=== PATIENT | male | born 1980 | race African-American/Black ===

== ENCOUNTER 2020-05-09 12:15 | Inpatient (IN) | payer OTHER ==
[2020-05-09 12:55] LABS: Anisocytosis Slight; Basophils % (A) 0 %; Eosinophils # (A) 0.1 k/uL (0-0.7); Eosinophils % (A) 2 %; HCT 30.9 % (39.0-53.0); Hypochromasia Slight; Lymphocytes % (A) 22 %; MCH 31.6 pg (25.0-35.0); MCHC 32.4 g/dL (31.0-37.0); MCV 97.5 fL (80.0-100.0); Macrocytosis Slight; Mean Platelet Volume 8.6; Monocytes # (A) 0.5 k/uL (0-1.0); Monocytes % (A) 11 %; Neutrophils % (A) 63 %; Platelet Count 279 k/uL (150-450); RBC 3.17 m/uL (4.30-5.90); RDW 17.7 % (11.5-15.5); WBC 4.7 k/uL (3.8-10.6)
[2020-05-09 13:06] LABS: Albumin 2.4 g/dL (3.5-5.0); Magnesium 1.9 mg/dL (1.6-2.3); Potassium 3.8 mmol/L (3.5-5.1); Total Bilirubin 1.1 mg/dL (0.2-1.3); Total Protein 6.3 g/dL (6.3-8.2)
[2020-05-09 13:11] LABS: Prothrombin Time 10.7 sec (9.0-12.0)
[2020-05-09] MEDS ORDERED: ONDANSETRON 4 MG/2 ML VIAL ONE (13:11)
[2020-05-09] MEDS ORDERED: ONDANSETRON 4 MG/2 ML VIAL IVP STA (13:13)
--- NOTE | 2020-05-09 13:46 | ED ---
Extremity Problem HPI - General Chief complaint: Extremity Problem,Nontraumatic Stated complaint: weight gain/fluid retention Time Seen by Provider: 05/09/20 12:35 Source: patient, family Mode of arrival: wheelchair Limitations: no limitations - History of Present Illness Initial comments: 39-year-old male with history of CAD with stents x 2, HLD, HTN, IDDMII, kidney disease presents today for chief complaint of increased bilateral leg swelling generalized weakness- sent by pCP for worsening leg swelling and kidney function. Patient states he is weak all over he states he has had trouble with leg swelling for the past montha ns recently trailed lasix as prescribed by Dr. Galindo. Patient states his legs continue to swell and he gained 9 lbs in the past 2 days. Patient states the he saw PCP today who was concerned because patient kidney function appeared to be worsening Patient denies shortness of breath, chest pain or pressure. Denies headache, visual changes, nausea, vomiting, abdominal pain. Patient denies fever or upper respiratory symptoms. Patient states his only complaints are leg pain and genealized weakness/fatigue. patient appeears fatigued on arrival but is AAOX3. - Related Data Home Medications Medication Instructions Recorded Confirmed Acetaminophen [Tylenol 8 Hour] 650 mg PO Q6H PRN 05/09/20 05/09/20 Aspirin EC [Ecotrin Low Dose] 81 mg PO DAILY 05/09/20 05/09/20 Atorvastatin [Lipitor] 40 mg PO DAILY 05/09/20 05/09/20 Carvedilol [Coreg] 50 mg PO BID 05/09/20 05/09/20 Furosemide [Lasix] 20 mg PO BID 05/09/20 05/09/20 Insulin Glargine,Hum.rec.anlog 10 unit SQ HS 05/09/20 05/09/20 [Lantus Solostar] Isosorbide Dinitrate [Isordil] 10 mg PO TID 05/09/20 05/09/20 Nitroglycerin Sl Tabs [Nitrostat] 0.4 mg SUBLINGUAL Q5M PRN 05/09/20 05/09/20 Ondansetron HCl [Zofran] 4 mg PO Q8H PRN 05/09/20 05/09/20 Sesame Oil 4 cap PO DAILY 07/21/20 07/21/20 Sodium Bicarbonate Tab 650 mg PO BID 05/09/20 05/09/20 amLODIPine [Norvasc] 10 mg PO DAILY 05/09/20 05/09/20 hydrALAZINE HCL [Apresoline] 100 mg PO TID 05/09/20 05/09/20 Allergies Allergy/AdvReac Type Severity Reaction Status Date / Time No Known Allergies Allergy Verified 05/09/20 13:44 Review of Systems ROS Statement: Those systems with pertinent positive or pertinent negative responses have been documented in the HPI. ROS Other: All systems not noted in ROS Statement are negative. Past Medical History Past Medical History: Heart Failure, Hypertension, Myocardial Infarction ([place]), Renal Disease History of Any Multi-Drug Resistant Organisms: None Reported Past Surgical History: Heart Catheterization With Stent Past Psychological History: No Psychological Hx Reported Smoking Status: Never smoker Past Alcohol Use History: None Reported Past Drug Use History: None Reported General Exam - General Exam Comments Initial Comments: General: The patient is awake and alert, in no distress Eye: +3 mm right pupil round and reactive to light, extra-ocular movements are intact. The left eye is opaque. No nystagmus. There is normal conjunctiva bilaterally. No signs of icterus. Ears, nose, mouth and throat: There are moist mucous membranes and no oral lesions. Neck: The neck is supple, there is no tenderness or JVD. Cardiovascular: There is a regular rate and rhythm. No murmur, rub or gallop is appreciated. Respiratory: Respirations are non-labored, breath sounds are equal. No wheezes, stridor. Some mild rhonchi noted. Faint base rales. Gastrointestinal: Soft, non-distended, non-tender abdomen without masses or organomegaly noted. There is no rebound or guarding present. Musculoskeletal: Normal ROM, no tenderness. Strength 5/5. Sensation intact. Radial pulses equal bilaterally 2+. Neurological: A&O x 3. CN II-XII intact grossly, There are no obvious motor or sensory deficits. Coordination appears grossly intact. Speech is normal. Skin: Skin is warm and dry and no rashes or lesions are noted. +3 pitting edema b/l Psychiatric: Cooperative, appropriate mood & affect, normal judgment. Limitations: no limitations Course Vital Signs 05/09/20 05/09/20 05/09/20 12:21 14:18 15:00 Temperature 97.8 F Pulse Rate 84 76 78 Respiratory 16 16 15 Rate Blood Pressure 185/105 189/123 189/123 O2 Sat by Pulse 100 99 100 Oximetry 05/09/20 05/09/20 05/09/20 15:45 17:00 17:30 Temperature Pulse Rate 79 84 83 Respiratory 15 19 20 Rate Blood Pressure 201/139 211/136 217/122 O2 Sat by Pulse 99 100 99 Oximetry 05/09/20 18:30 Temperature 97.9 F Pulse Rate 83 Respiratory 16 Rate Blood Pressure 205/134 O2 Sat by Pulse 99 Oximetry Medical Decision Making - Medical Decision Making 39yo male presenting for cc of leg swelling sent by PCP, also endorses fatigue. Patient has history of chronic kidney disease, hypertension and insulin- dependent diabetes. Patient sent for worsening kidney function. Physical examination concerning for fluid overload with B/l LE swelling Patient has some minor rales, no respiratory distress. Denies chest pain, SOB, or pain with deep inspiration. BNP significantly elevated, Cr increased concerning for kidney failure cannot r/o cardiorenal syndrome. Will be admitted on lasix drink with nephrology and cardiology consultation. Dr Hickey agreeable to care plan and admission. - Lab Data Result diagrams: 05/10/20 05:41 05/11/20 06:10 Lab Results 05/09/20 05/09/20 05/09/20 Range/Units 12:35 12:35 12:35 WBC 4.7 (3.8-10.6) k/uL RBC 3.17 L (4.30-5.90) m/uL Hgb 10.0 L (13.0-17.5) gm/dL Hct 30.9 L (39.0-53.0) % MCV 97.5 (80.0-100.0) fL MCH 31.6 (25.0-35.0) pg MCHC 32.4 (31.0-37.0) g/dL RDW 17.7 H (11.5-15.5) % Plt Count 279 (150-450) k/uL Neutrophils % 63 % Lymphocytes % 22 % Monocytes % 11 % Eosinophils % 2 % Basophils % 0 % Neutrophils # 3.0 (1.3-7.7) k/uL Lymphocytes # 1.0 (1.0-4.8) k/uL Monocytes # 0.5 (0-1.0) k/uL Eosinophils # 0.1 (0-0.7) k/uL Basophils # 0.0 (0-0.2) k/uL Hypochromasia Slight Anisocytosis Slight Macrocytosis Slight PT 10.7 (9.0-12.0) sec INR 1.0 (<1.2) APTT 26.0 (22.0-30.0) sec Sodium 138 (137-145) mmol/L Potassium 3.8 (3.5-5.1) mmol/L Chloride 110 H (98-107) mmol/L Carbon Dioxide 24 (22-30) mmol/L Anion Gap 4 mmol/L BUN 34 H (9-20) mg/dL Creatinine 3.73 H (0.66-1.25) mg/dL Est GFR (CKD-EPI)AfAm 23 (>60 ml/min/1.73 sqM) Est GFR (CKD-EPI)NonAf 20 (>60 ml/min/1.73 sqM) Glucose 125 H (74-99) mg/dL Calcium 8.0 L (8.4-10.2) mg/dL Magnesium 1.9 (1.6-2.3) mg/dL Total Bilirubin 1.1 (0.2-1.3) mg/dL AST 58 (17-59) U/L ALT 75 H (4-49) U/L Alkaline Phosphatase 812 H (38-126) U/L Troponin I (0.000-0.034) ng/mL NT-Pro-B Natriuret Pep pg/mL Total Protein 6.3 (6.3-8.2) g/dL Albumin 2.4 L (3.5-5.0) g/dL Hepatitis A IgM Ab (Non-Reactive) Hep Bs Antigen (Non-Reactive) Hep B Core IgM Ab (Non-Reactive) Hep C IgG Ab (Non-Reactive) 05/09/20 05/09/20 05/09/20 Range/Units 12:35 12:35 12:35 WBC (3.8-10.6) k/uL RBC (4.30-5.90) m/uL Hgb (13.0-17.5) gm/dL Hct (39.0-53.0) % MCV (80.0-100.0) fL MCH (25.0-35.0) pg MCHC (31.0-37.0) g/dL RDW (11.5-15.5) % Plt Count (150-450) k/uL Neutrophils % % Lymphocytes % % Monocytes % % Eosinophils % % Basophils % % Neutrophils # (1.3-7.7) k/uL Lymphocytes # (1.0-4.8) k/uL Monocytes # (0-1.0) k/uL Eosinophils # (0-0.7) k/uL Basophils # (0-0.2) k/uL Hypochromasia Anisocytosis Macrocytosis PT (9.0-12.0) sec INR (<1.2) APTT (22.0-30.0) sec Sodium (137-145) mmol/L Potassium (3.5-5.1) mmol/L Chloride (98-107) mmol/L Carbon Dioxide (22-30) mmol/L Anion Gap mmol/L BUN (9-20) mg/dL Creatinine (0.66-1.25) mg/dL Est GFR (CKD-EPI)AfAm (>60 ml/min/1.73 sqM) Est GFR (CKD-EPI)NonAf (>60 ml/min/1.73 sqM) Glucose (74-99) mg/dL Calcium (8.4-10.2) mg/dL Magnesium (1.6-2.3) mg/dL Total Bilirubin (0.2-1.3) mg/dL AST (17-59) U/L ALT (4-49) U/L Alkaline Phosphatase (38-126) U/L Troponin I 0.030 (0.000-0.034) ng/mL NT-Pro-B Natriuret Pep 61102 pg/mL Total Protein (6.3-8.2) g/dL Albumin (3.5-5.0) g/dL Hepatitis A IgM Ab Non-Reactive (Non-Reactive) Hep Bs Antigen Non-Reactive (Non-Reactive) Hep B Core IgM Ab Non-Reactive (Non-Reactive) Hep C IgG Ab Non-Reactive (Non-Reactive) Disposition Clinical Impression: CHF (congestive heart failure), Abnormal albumin, Elevated alkaline phosphatase level, Kidney failure, Hypertension, Pleural effusion, Leg edema Disposition: ADMITTED IP TO THIS HOSP Condition: Serious Is patient prescribed a controlled substance at d/c from ED?: No Time of Disposition: 14:04 Decision to Admit Reason: Admit from EC Decision Date: 05/09/20 Decision Time: 14:04
--- NOTE | 2020-05-09 13:57 | XR ---
EXAMINATION TYPE: XR chest 2V DATE OF EXAM: 05/09/2020 COMPARISON: None HISTORY: 39-year-old male with chest pain TECHNIQUE: PA and lateral views FINDINGS: Heart moderately enlarged. Aorta within normal limits. Mild diffuse interstitial and vascular promine nce. Trace pleural effusions. IMPRESSION: Moderate enlargement of the cardiac/pericardiac silhouette. Correlate for pulmonary vascular congesti on. Trace pleural effusions.
[2020-05-09] MEDS ORDERED: NALOXONE 0.4 MG/ML 1 ML VIAL IV PRN (14:00)
[2020-05-09] MEDS ORDERED: FUROSEMIDE 10 MG/ML 4 ML VIAL IV STA (14:06)
[2020-05-09] MEDS ORDERED: LEVOFLOXACIN 500MG-D5W PMX 500 MG in DEXTROSE/WATER 1 100ML.BAG IVPB STA (14:12)
[2020-05-09] MEDS ORDERED: cefTRIAXone IN SWFI 1,000 MG/10 ML SYRINGE IVP STA (14:12)
[2020-05-09] MEDS: FUROSEMIDE 100 MG in SODIUM CHLORIDE 0.9% 90 ML IV SCH ×2 (14:41→22:46)
--- NOTE | 2020-05-09 15:10 | US ---
EXAMINATION TYPE: US renals and bladder DATE OF EXAM: 05/09/2020 COMPARISON: NONE CLINICAL HISTORY: cardio Renal syndrome. EXAM MEASUREMENTS: Right Kidney: 13.2 x 5.8 x 7.1 cm Left Kidney: 13.2 x 7.7 x 7.3 cm Right Kidney: No hydronephrosis or masses seen, echogenic echotexture Left Kidney: No hydronephrosis or masses seen, echogenic echotexture Bladder: wnl Bilateral Jets seen: No Cortical measured differentiation is somewhat reduced. IMPRESSION: Correlate for medical renal disease
[2020-05-09] MEDS ORDERED: cloNIDine HCL 0.1 MG TAB PO PRN (16:24)
[2020-05-09] MEDS ORDERED: ACETAMINOPHEN TAB 325 MG TAB PO STA (17:32)
[2020-05-09] MEDS ORDERED: BUTALB/APAP/CAFF 50-325-40MG TAB PO PRN (17:57)
[2020-05-09] MEDS ORDERED: hydrALAZINE HCL 50 MG TAB PO SCH (18:00)
[2020-05-09] MEDS ORDERED: ACETAMINOPHEN TAB 325 MG TAB PO PRN (18:41)
[2020-05-09] MEDS ORDERED: ONDANSETRON 4 MG TAB PO PRN (18:41)
[2020-05-09] MEDS ORDERED: NITROGLYCERIN SL TABS 0.4 MG TAB SUBLINGUAL PRN (18:41)
[2020-05-09] MEDS ORDERED: PANTOPRAZOLE 40 MG TABLET PO STA (18:43)
[2020-05-09] MEDS ORDERED: SPIRONOLACTONE 25 MG TAB PO STA (18:44)
[2020-05-09] MEDS: hydrALAZINE HCL 50 MG TAB PO SCH (19:11)
[2020-05-09] MEDS: ISOSORBIDE DINITRATE 10 MG TAB PO SCH (19:12)
[2020-05-09] MEDS: LABETALOL 200 MG TAB PO SCH (19:12)
[2020-05-09] MEDS: amLODIPine 10 MG TAB PO SCH (19:23)
[2020-05-09 20:13] LABS: Glucose,Whole Blood 151 mg/dL (75-99)
[2020-05-09] MEDS: INSULIN DETEMIR (LEVEMIR) 100 UNIT/ML SYR SQ SCH (21:02)
[2020-05-09] MEDS: SODIUM BICARBONATE TAB 650 MG TAB PO SCH (21:02)
--- NOTE | 2020-05-09 23:57 | P.HPIM ---
History of Present Illness H&P Date: 05/09/20 Chief Complaint: Anasarca, worsening cardiomyopathy and systolic congestive heart failure, a 59-year-old start seen in the office recently moving from [place] to be close to his mother. Apparently was diagnosed with cardiomyopathy ischemic type with angiogram and angioplasty back in 2018 history of type 2 diabetes on medication and history of anasarca who was bothered by the severity of the swelling the edema with large swelling in the scrotum. Was seen on week early started on diuretics without any improvement patient had gained 5 pounds within 1 week despite being on furosemide. The blood pressure remained extremely high at the time being on 3 medication at the time with no respond. Patient was sent to the emergency department seen and evaluated found to be in acute kidney failure with severe anasarca and congestive heart failure with slight anemia as well with significant abnormal liver function test. Troponin was negative but his BNP was 69,000. Chest x-ray showed moderate enlargement of the cardiac silhouette correlate with pulmonary vascular congestion and trace of pulmonary edema was started on Lasix a drip admitted to the hospital will be seen cardiology and nephrology will continue to treat his anasarca. Review of Systems CONSTITUTIONAL: Well-developed mild shortness of breath no cough or wheezes. EYES: No icterus sclerae, no conjunctivitis. EARS, NOSE, MOUTH, THROAT, and FACE: No sore throat, lymphadenopathy, carotid bruits or deformity. RESPIRATORY: Positive shortness of breath. CARDIOVASCULAR: Has a PND orthopnea and angina with significant anasarca and edema. GASTROINTESTINAL: No Abd pain, Nausea or vomiting, no Diarrhea or constipation, No GI Bleed, no distention or masses. GENITOURINARY: Negative for Hematuria or UTI, no kidney stones. Significant swelling in the scrotum fluid retention. INTEGUMENT/BREAST: Negative for any muscular injury with mild osteoarthritis.. Significant edema lower extremity. HEMATOLOGIC/LYMPHATIC: Negative for bleed or purpura. MUSCULOSKELTAL: Negative for Myalgia or arthralgia. NEURLOGICAL: No LOC, Sz or syncope, blurred vision dizziness or abnormality.. BEHAVIORAL/PSYCH: Negative. ENDOCRINE: Negative. Past Medical History Past Medical History: Heart Failure, Hypertension, Myocardial Infarction ([place]), Renal Disease History of Any Multi-Drug Resistant Organisms: None Reported Past Surgical History: Heart Catheterization With Stent Past Psychological History: No Psychological Hx Reported Smoking Status: Never smoker Past Alcohol Use History: None Reported Past Drug Use History: None Reported Medications and Allergies Home Medications Medication Instructions Recorded Confirmed Type Acetaminophen [Tylenol 8 Hour] 650 mg PO Q6H PRN 05/09/20 05/09/20 History Aspirin EC [Ecotrin Low Dose] 81 mg PO DAILY 05/09/20 05/09/20 History Atorvastatin [Lipitor] 40 mg PO DAILY 05/09/20 05/09/20 History Carvedilol [Coreg] 50 mg PO BID 05/09/20 05/09/20 History Furosemide [Lasix] 20 mg PO BID 05/09/20 05/09/20 History Insulin Glargine,Hum.rec.anlog 10 unit SQ HS 05/09/20 05/09/20 History [Lantus Solostar] Isosorbide Dinitrate [Isordil] 10 mg PO TID 05/09/20 05/09/20 History Nitroglycerin Sl Tabs [Nitrostat] 0.4 mg SUBLINGUAL Q5M PRN 05/09/20 05/09/20 History Ondansetron HCl [Zofran] 4 mg PO Q8H PRN 05/09/20 05/09/20 History Sesame Oil 4 cap PO DAILY 05/09/20 05/09/20 History Sodium Bicarbonate Tab 650 mg PO BID 05/09/20 05/09/20 History amLODIPine [Norvasc] 10 mg PO DAILY 05/09/20 05/09/20 History hydrALAZINE HCL [Apresoline] 100 mg PO TID 05/09/20 05/09/20 History Allergies Allergy/AdvReac Type Severity Reaction Status Date / Time No Known Allergies Allergy Verified 05/09/20 13:44 Physical Exam Vitals: Vital Signs Temp Pulse Resp BP Pulse Ox 05/09/20 18:30 97.9 F 83 16 205/134 99 05/09/20 17:30 83 20 217/122 99 05/09/20 17:00 84 19 211/136 100 05/09/20 15:45 79 15 201/139 99 05/09/20 15:00 78 15 189/123 100 05/09/20 14:18 76 16 189/123 99 05/09/20 12:21 97.8 F 84 16 185/105 100 Intake and Output 05/09/20 05/09/20 05/09/20 06:59 14:59 22:59 Other: Weight 107.955 kg General Appearance: Alert, cooperative, no distress, appears stated age. Neck HEENT: Supple, no lymphadenopathy, no thyroid enlargement, no carotid bruits. Lungs: Decreased expansion with deep inspiration positive for rhonchi with mild crackles in the bases with mild expiratory wheezes. Chest Wall: Decrease expansion with deep inspiration no tenderness and no deformity was found on exam, no costochondral pain or discomfort. Heart: Regular rate and rhythm, S1, S2 +3 positive JVD Back: Symmetric, no curvature, ROM normal, no CVA tenderness. Abdomen: Soft, non-tender, bowel sounds active all four quadrants, slight hepatomegaly with significant anasarca and abdominal wall area. Extremities: Very large edema bilaterally with slight discoloration from the knee down. Pulses: 2+ and symmetric. Skin: Skin color, texture, tugor normal, no rashes or lesions. Neurologic: Alert oriented x3 cranial nerves II through XII intact, no motor deficit, no abnormal balance or gait. Results CBC & Chem 7: 05/09/20 12:35 05/09/20 12:35 Labs: Abnormal Lab Results - Last 24 Hours (Table) 05/09/20 05/09/20 Range/Units 12:35 12:35 RBC 3.17 L (4.30-5.90) m/uL Hgb 10.0 L (13.0-17.5) gm/dL Hct 30.9 L (39.0-53.0) % RDW 17.7 H (11.5-15.5) % Chloride 110 H (98-107) mmol/L BUN 34 H (9-20) mg/dL Creatinine 3.73 H (0.66-1.25) mg/dL Glucose 125 H (74-99) mg/dL Calcium 8.0 L (8.4-10.2) mg/dL ALT 75 H (4-49) U/L Alkaline Phosphatase 812 H (38-126) U/L Albumin 2.4 L (3.5-5.0) g/dL Thrombosis Risk Factor Assmnt - DVT/VTE Prophylaxis DVT/VTE Prophylaxis: Pharmacologic Prophylaxis ordered, Mechanical Prophylaxis ordered Assessment and Plan Assessment: 1 worsening congestive heart failure: Most likely systolic dysfunction, patient will be on IV furosemide 10 mg an hour we'll consult cardiology, echocardiogram was ordered Will add more medication including spironolactone along with hydralazine and isosorbide continue beta jamarcus and titrate dose higher. 2 anasarca: Continue diuretics and titrate medication gradually. 3 acute kidney injury with chronic kidney disease: Ultrasound of the kidney was order we'll consult nephrology continue to watch kidney function daily. 4 advance CAD: Post angioplasty and stent placement in 2018 patient was seen cardiology and apparently had more blockage with no angiogram lately. 5 acute anemia: Mostly iron deficiency with chronic disease most likely affected by the kidney function continue iron supplement. 6 abnormal liver function test: No clear etiology at this point hepatitis panel was order an ultrasound be done. 7 hyperlipidemia: Has been on atorvastatin 40 mg a day. 8 advanced noncontrolled hypertension: Despite being on amlodipine furosemide and Coreg patient's symptoms are not weight control switch medication to continue hydralazine 100 mg 3 times a day, amlodipine 5 mg twice a day, furosemide, Aldactone and switch Coreg to lab atenolol 20 mg twice a day and add clonidine as needed basis for systolic above 160. 9 type 2 diabetes: On insulin, patient remain on Lantus and Humalog continue Accu-Chek with sliding scales coverage. 10 GERD/GI prophylaxis: Patient will be on pantoprazole. 11 DVT prophylaxis: Patient will be on heparin 5000 units subcutaneous twice a day. CODE STATUS: Full code. Admit patient to the inpatient service for more than 2 night stay.
--- NOTE | 2020-05-10 03:51 | US ---
EXAMINATION TYPE: US venous doppler duplex LE DATE OF EXAM: 05/10/2020 3:36 AM COMPARISON: NONE CLINICAL HISTORY: DVT. Swelling bilateral legs x 4 months. No hx of DVT. SIDE PERFORMED: Bilateral TECHNIQUE: The lower extremity deep venous system is examined utilizing real time linear array sonog bella with graded compression, doppler sonography and color-flow sonography. VESSELS IMAGED: External Iliac Vein (EIV) Common Femoral Vein Deep Femoral Vein Greater Saphenous Vein * Femoral Vein Popliteal Vein Small Saphenous Vein * Proximal Calf Veins (* superficial vessels) Right Leg: No evidence of DVT in veins imaged at this time from prox calf veins to EIV. Multiple hyp oechoic areas with vascularity seen within the right groin. Largest measures: 5.8 x 2.6 x 1.6 cm. Pit ting edema throughout leg. Left Leg: No evidence of DVT in veins imaged at this time from prox calf veins to EIV. Multiple hypo echoic areas with vascularity seen within the left groin. Largest measures: 4.2 x 2.7 x 1.6 cm. Pitti ng edema throughout leg. Slightly limited evaluation of popliteal area due to patient positioning. IMPRESSION: There is bilateral inguinal lymphadenopathy. No evidence of deep vein thrombosis in both legs. Subcutaneous edema in both legs.
[2020-05-10 04:19] LABS: Hepatitis A Antibody IgM Non-Reactive (Non-Reactive); Hepatitis B Core IgM Non-Reactive (Non-Reactive); Hepatitis B Surface Antigen Non-Reactive (Non-Reactive); Hepatitis C IgG Antibody Non-Reactive (Non-Reactive)
[2020-05-10 06:02] LABS: Anisocytosis Slight; Basophils % (A) 0 %; Eosinophils # (A) 0.1 k/uL (0-0.7); Eosinophils % (A) 3 %; HCT 32.2 % (39.0-53.0); Hypochromasia Slight; Lymphocytes % (A) 24 %; MCH 31.1 pg (25.0-35.0); MCV 100.2 fL (80.0-100.0); Macrocytosis Slight; Mean Platelet Volume 8.8; Monocytes # (A) 0.4 k/uL (0-1.0); Monocytes % (A) 8 %; Neutrophils # (A) 2.7 k/uL (1.3-7.7); Neutrophils % (A) 63 %; Platelet Count 272 k/uL (150-450); RBC 3.21 m/uL (4.30-5.90); RDW 17.7 % (11.5-15.5); WBC 4.3 k/uL (3.8-10.6)
[2020-05-10 06:12] LABS: Albumin 2.5 g/dL (3.5-5.0); Calcium 8.3 mg/dL (8.4-10.2); Potassium 3.6 mmol/L (3.5-5.1); Total Bilirubin 0.9 mg/dL (0.2-1.3); Total Protein 6.4 g/dL (6.3-8.2)
[2020-05-10 06:15] LABS: Glucose,Whole Blood 84 mg/dL (75-99)
[2020-05-10] MEDS: HEPARIN SODIUM,PORCINE 5,000 UNIT/ML 1 ML VIAL SQ SCH ×2 (07:54→21:46)
[2020-05-10] MEDS: ATORVASTATIN 40 MG TAB PO SCH (07:54)
[2020-05-10] MEDS: ASPIRIN 81 MG PO SCH (07:54)
[2020-05-10] MEDS: hydrALAZINE HCL 50 MG TAB PO SCH ×3 (07:54→21:45)
[2020-05-10] MEDS: amLODIPine 10 MG TAB PO SCH (07:54)
[2020-05-10] MEDS: ISOSORBIDE DINITRATE 10 MG TAB PO SCH ×3 (07:54→21:46)
[2020-05-10] MEDS: SODIUM BICARBONATE TAB 650 MG TAB PO SCH (07:55)
[2020-05-10] MEDS: LABETALOL 200 MG TAB PO SCH ×2 (07:55→21:46)
[2020-05-10] MEDS: FUROSEMIDE 100 MG in SODIUM CHLORIDE 0.9% 90 ML IV SCH ×2 (07:55→21:47)
[2020-05-10] MEDS ORDERED: amLODIPine 10 MG TAB PO SCH (09:00)
--- NOTE | 2020-05-10 10:00 | ECHOF ---
Referral Reason: MEASUREMENTS -------- HEIGHT: 177.8 cm WEIGHT: 108.0 kg BP: RVIDd: 2.7 cm (< 3.3) IVSd: 1.8* cm (0.6 - 1.1) LVIDd: 4.5 cm (3.9 - 5.3) LVPWd: 2.5 cm (0.6 - 1.1) IVSs: 2.1 cm LVIDs: 3.3 cm LVPWs: 2.8 cm Ao Diam: 3.3 cm (2.0 - 3.7) AV Cusp: 2.5 cm (1.5 - 2.6) LA Diam: 4.3 cm (2.7 - 3.8) MV EXCURSION: 17.701 mm (> 18.000) MV EF SLOPE: 147 mm/s (70 - 150) EPSS: 0.9 cm MV E Douglas: 0.85 m/s MV DecT: 171 ms MV A Douglas: 0.41 m/s MV E/A Ratio: 2.08 RAP: 20.00 mmHg RVSP: 78.98 mmHg TAPSE: 17.57 mm FINDINGS -------- Sinus rhythm. This was a technically good study. The left ventricular size is normal. There is severe concentric left ventricular hypertrophy. Ove rall left ventricular systolic function is mildly impaired with, an EF between 45 - 50 %. The LV wall s have a bright ground glass appearance. Mid inferoseptal LV wall motion is hypokinetic. The right ventricle is normal in size. The global wall thickness of the right ventricle is mildly e nlarged. The left atrium is mildly dilated. The right atrial size is normal. Interatrial and interventricular septum intact. The aortic valve is trileaflet and appears structurally normal. The mitral valve is normal. Moderate mitral regurgitation is present. Severe tricuspid regurgitation present. There is severe pulmonary hypertension. The right ventric ular systolic pressure, as measured by Doppler, is 78.98mmHg. Moderate pulmonic regurgitation. The aortic root size is normal. The inferior vena cava is moderately dilated. There is a small, generalized pericardial effusion present. Large pleural effusion CONCLUSIONS -------- 1. There is severe concentric left ventricular hypertrophy. The LV cabrera have a bright ground glass a ppearance.consider amyloidosis 2. Overall left ventricular systolic function is mildly impaired with, an EF between 45 - 50 %. 3. Mid inferoseptal LV wall motion is hypokinetic. 4. The global wall thickness of the right ventricle is mildly enlarged. 5. The left atrium is mildly dilated. 6. Moderate mitral regurgitation is present. 7. Severe tricuspid regurgitation present. 8. There is severe pulmonary hypertension. 9. The right ventricular systolic pressure, as measured by Doppler, is 78.98mmHg. 10. Moderate pulmonic regurgitation. 11. The aortic root size is normal. 12. There is a small, generalized pericardial effusion present. 13. Large pleural effusion DENTIST ATTENDANT: Kyleigh Zhao RDCS
--- NOTE | 2020-05-10 11:38 | NM ---
EXAMINATION TYPE: NM pul vent and perfuse DATE OF EXAM: 05/10/2020 COMPARISON: Chest radiograph 05/09/2020 HISTORY: Pulmonary embolus TECHNIQUE: Utilizing inhalation of 64.8 mCi Tc 99m DTPA aerosol and intravenous injection of 5.2 mCi of Tc 99m MAA, ventilation and perfusion images are acquired post injection in multiple projections. FINDINGS: Normal radiotracer distribution is noted in the lungs. There is no evidence of mismatched defects. Ca rdiomegaly. IMPRESSION: Normal VQ scan.
--- NOTE | 2020-05-10 12:15 | CONS ---
CONSULTATION REASON FOR CONSULT: Renal failure. HISTORY OF PRESENT ILLNESS: Patient is a 39-year-old male who has a history of type 1 diabetes, cardiomyopathy and was admitted to the hospital with increased lower extremity edema, shortness of breath. Patient denies any prior history of kidney diseases. Serum creatinine was noted to be 3.9 mg/dL. Patient did admit to having taken a lot of nonsteroidal anti-inflammatory agents in the form of Motrin. He has been taking that since he was a teenager and states he has taken 8-12 tablets daily for pain. Currently, patient is maintained on Lasix drip. He states he is feeling better. He has had good urine output. His weight is down by about 2 kg. The patient did have an ultrasound of the abdomen done which did not show any hydronephrosis. However, bilateral inguinal lymphadenopathy was noted. I do not have a urinalysis available at this time and patient denies having being told that he has proteinuria. PAST MEDICAL HISTORY: Cardiomyopathy, type 1 diabetes, hypertension, history of metabolic acidosis, history of AK. PAST SURGICAL HISTORY: Cardiac catheterization, coronary stent placement. SOCIAL HISTORY: Negative for smoking, drug abuse or alcohol abuse. MEDICATIONS: At home prior to admission included Lipitor, Coreg, Lasix, Isordil, insulin, Zofran, Norvasc, sodium bicarb, hydralazine. ALLERGIES: None. REVIEW OF SYSTEMS: As per HPI. Other systems negative. PHYSICAL EXAMINATION: Patient is comfortable, awake, alert, oriented x3, not in any acute distress. Blood pressure was 185/96, heart rate 72 per minute, he is afebrile. Examination of the heart S1, S2. Examination of the lungs, bilateral breath sounds are heard. Abdomen is soft, nontender. Examination of the lower extremities shows edema 3+ bilaterally. ARCH SUPPORT TECHNICIAN exam grossly intact. JVP is elevated. ARCH SUPPORT TECHNICIAN exam grossly intact. LABS: Show sodium 140, potassium 3.8, chloride 109, BUN 35, serum creatinine 3.9, hemoglobin 10.0. UA is not available. Albumin is 2.5, creatinine 3.9. ASSESSMENT: 1. Acute kidney injury. Previous creatinine not known. Most likely cardiorenal currently. I will obtain urinalysis to rule out underlying proteinuria as a cause of the edema. Echocardiogram showed ejection fraction 45%-50%. I will continue with the Lasix drip for now. Given the finding of lymphadenopathy, I would recommend a CAT scan of the abdomen. Patient did have a heavy intake of nonsteroidal anti-inflammatory agents since his teenage years with 8-12 tablets per day. This may have resulted in some degree of chronic kidney disease. We will try to obtain previous labs to ascertain patient's baseline renal function. 2. Volume overload, mostly congestive heart failure, acute on top of chronic mainly systolic. 3. Rule out proteinuria and nephrotic syndrome based on urinalysis. 4. Lymph inguinal lymphadenopathy. Check CT scan of the abdomen. Surgery has been consulted for biopsies. 5. Type 1 diabetes. 6. History of coronary artery disease, status post coronary stent placement. PLAN: Check urinalysis, continue with Lasix drip. Patient is advised to avoid the use of NSAIDs. We will try to obtain old labs to ascertain patient's baseline renal function. Increase clonidine as blood pressure remains uncontrolled. Expect improvement in blood pressure with ongoing diuresis. I will add Zaroxolyn as well if the patient does not continue to diurese. At this time he has diuresed fairly well. Thank you for this consultation. Will continue to follow the patient with you during his hospitalization. MMODL / IJN: [id number] /
[2020-05-10 12:22] LABS: Glucose,Whole Blood 123 mg/dL (75-99)
[2020-05-10 13:52] LABS: Appearance,Urine Clear (Clear); Bilirubin,Urine Negative (Negative); Blood,Urine Trace (Negative); Color,Urine Light Yellow; Glucose,Urine (UA) Trace (Negative); Hyaline Casts,Urine 3 /lpf (0-2); Ketones,Urine Negative (Negative); Leukocyte Esterase,Urine Negative (Negative); Mucus,Urine Rare /hpf; Nitrite,Urine Negative (Negative); PH, Urine 6.5 (5.0-8.0); Protein,Urine 2+ (Negative); RBC,Urine 2 /hpf (0-5); Specific Gravity,Urine 1.007 (1.001-1.035); Sperm,Urine Rare /hpf; Urobilinogen,Urine <2.0 mg/dL (<2.0); WBC,Urine 1 /hpf (0-5)
--- NOTE | 2020-05-10 14:13 | P.PN ---
Subjective Progress Note Date: 05/10/20 59-year-old start seen in the office recently moving from [place] to be close to his mother. Apparently was diagnosed with cardiomyopathy ischemic type with angiogram and angioplasty back in 2018 history of type 2 diabetes on medication and history of anasarca who was bothered by the severity of the swelling the edema with large swelling in the scrotum. Was seen on week early started on diuretics without any improvement patient had gained 5 pounds within 1 week despite being on furosemide. The blood pressure remained extremely high at the time being on 3 medication at the time with no respond. Patient was sent to the emergency department seen and evaluated found to be in acute kidney failure with severe anasarca and congestive heart failure with slight anemia as well with significant abnormal liver function test. Troponin was negative but his BNP was 69,000. Chest x-ray showed moderate enlargement of the cardiac silhouette correlate with pulmonary vascular congestion and trace of pulmonary edema was started on Lasix a drip admitted to the hospital will be seen cardiology and nephrology will continue to treat his anasarca. 05/10: Patient remains on the cardiac stepdown unit. He states he feels a little bit better from yesterday. He is scheduled to see nephrology and cardiology toeda graham. Ultrasound bilateral lower extremities negative for DVT. VQ scan echocardiogram are pending. Plan is to obtain lymph node biopsy. Discussed case with Dr. Hebert and she suggested undergoing CAT scan of the abdomen and pelvis first. She will be ruling out nephrotic syndrome. Previous lab work will be obtained. The patient states he was first diagnosed with diabetes at age 18 and was placed on insulin and Glucophage. 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 Cataract surgery on the right and retinal surgeries. Patient is afebrile, heart rate 72, blood pressure 185/96, pulse ox 97% on room air. Repeat blood work revealed WBC 4.3, hemoglobin 10, platelet count 272. BUN 35 and creatinine 3.90. Chloride 109, potassium 3.6, sodium 140. CO2 26. Blood sugars are running between 84 and 151. Total bilirubin 0.9, AST 40, ALT 62, alkaline phosphatase 720. Echocardiogram reveals EF of 45-50% with moderate mitral regurgitation, severe tricuspid regurgitation, severe pulmonary hypertension, moderate pulmonic regurgitation, large pleural effusion, small generalized pericardial effusion. Hepatitis panel negative. Coronavirus PCR not detected. Review of Systems CONSTITUTIONAL: Well-developed no shortness of breath no cough or wheezes. No fever. EYES: No icterus sclerae, no conjunctivitis. EARS, NOSE, MOUTH, THROAT, and FACE: No sore throat, lymphadenopathy, carotid bruits or deformity. RESPIRATORY: Positive shortness of breath. CARDIOVASCULAR: Has a PND orthopnea and angina with significant anasarca and edema. GASTROINTESTINAL: No Abd pain, Nausea or vomiting, no Diarrhea or constipation, No GI Bleed, no distention or masses. GENITOURINARY: Negative for Hematuria or UTI, no kidney stones. Significant swelling in the scrotum fluid retention. INTEGUMENT/BREAST: Negative for any muscular injury with mild osteoarthritis.. Significant edema lower extremity. HEMATOLOGIC/LYMPHATIC: Negative for bleed or purpura. MUSCULOSKELTAL: Negative for Myalgia or arthralgia. NEURLOGICAL: No LOC, Sz or syncope, blurred vision dizziness or abnormality. BEHAVIORAL/PSYCH: Negative. ENDOCRINE: Negative. Physical Examination General Appearance: Alert, cooperative, no distress, appears stated age. Patient appears to be in no acute distress. Neck HEENT: Supple, no lymphadenopathy, no thyroid enlargement, no carotid bruits. Lungs: Decreased expansion with deep inspiration positive for rhonchi with mild crackles in the bases with mild expiratory wheezes. Chest Wall: Decrease expansion with deep inspiration no tenderness and no deformity was found on exam, no costochondral pain or discomfort. Heart: Regular rate and rhythm, S1, S2 +3 positive JVD Back: Symmetric, no curvature, ROM normal, no CVA tenderness. Abdomen: Soft, non-tender, bowel sounds active all four quadrants, slight hepatomegaly with significant anasarca and abdominal wall area. Extremities: 3+ edema bilaterally with slight discoloration from the knee down. Pulses: 2+ and symmetric. Skin: Skin color, texture, tugor normal, no rashes or lesions. Neurologic: Alert oriented x3 cranial nerves II through XII intact, no motor deficit, no abnormal balance or gait. Assessment and Plan 1. Acute on chronic diastolic heart failure. Continue Lasix drip, monitor daily weight, electrolytes and renal function. Consults with cardiology and nephrology appreciated. Obtained previous reports from his physician in [place]. 2 anasarca: Continue diuretics and titrate medication gradually. CAT scan of the abdomen and pelvis without contrast has been ordered. 3 acute kidney injury with chronic kidney disease. Normal ultrasound of the kidneys. Obtained previous lab work from [place]. Nephrology consult appreciated. 4 advance CAD: Post angioplasty and stent placement in 2018 patient was seen cardiology and apparently had more blockage with no angiogram lately. 5 acute anemia: Mostly iron deficiency with chronic disease most likely affected by the kidney function continue iron supplement. 6 abnormal liver function test: No clear etiology at this point hepatitis panel was order an ultrasound be done. 7 hyperlipidemia: Has been on atorvastatin 40 mg a day. 8 advanced noncontrolled hypertension. Continue Norvasc 10 mg daily, Catapres scheduled 3 times daily and as needed, hydralazine 100 mg 3 times daily, labetalol 20 mg twice daily. 9 type 2 diabetes: On insulin, patient remain on Lantus and Humalog continue Accu-Chek with sliding scales coverage. Obtain A1c. 10 . Valvular heart disease with moderate mitral regurgitation, severe tricuspid regurgitation, moderate pulmonary regurgitation. 11 severe pulmonary hypertension. 12 GERD/GI prophylaxis: Patient will be on pantoprazole. 13 DVT prophylaxis: Patient will be on heparin 5000 units subcutaneous twice a day. 14 COVID-19 infection at present. CODE STATUS: Full code. Discharge plan: home Impression and plan of care have been directed as dictated by the signing physician. Paige Muir nurse practitioner acting as scribe for signing physician. Objective - Vital Signs Vital signs: Vital Signs Temp 97.4 F L 05/10/20 07:47 Pulse 72 05/10/20 07:47 Resp 18 05/10/20 07:47 BP 185/96 05/10/20 07:47 Pulse Ox 97 05/10/20 07:47 Intake & Output 05/09/20 05/10/20 05/10/20 18:59 06:59 18:59 Intake Total 225.833 91.5 Output Total 2024 Balance -1799.167 91.5 Weight 107.955 kg 105.415 kg Intake: IV 20 Invasive Line 1 20 Intake, IV Titration 80.833 91.5 Amount Furosemide 100 mg In 80.833 91.5 Sodium Chloride 0.9% 90 ml @ 10 MG/HR 10 mls/hr IV .Q10H KATHERINE Rx#: [id number] Oral 125 Output: Urine 2024 Other: # Bowel Movements 1 - Labs CBC & Chem 7: 05/10/20 05:41 05/10/20 05:41 Labs: Abnormal Lab Results - Last 24 Hours (Table) 05/09/20 05/09/20 05/09/20 Range/Units 12:35 12:35 20:11 RBC 3.17 L (4.30-5.90) m/uL Hgb 10.0 L (13.0-17.5) gm/dL Hct 30.9 L (39.0-53.0) % MCV (80.0-100.0) fL RDW 17.7 H (11.5-15.5) % Chloride 110 H (98-107) mmol/L BUN 34 H (9-20) mg/dL Creatinine 3.73 H (0.66-1.25) mg/dL Glucose 125 H (74-99) mg/dL POC Glucose (mg/dL) 151 H (75-99) mg/dL Calcium 8.0 L (8.4-10.2) mg/dL ALT 75 H (4-49) U/L Alkaline Phosphatase 812 H (38-126) U/L Albumin 2.4 L (3.5-5.0) g/dL 05/10/20 05/10/20 Range/Units 05:41 05:41 RBC 3.21 L (4.30-5.90) m/uL Hgb 10.0 L (13.0-17.5) gm/dL Hct 32.2 L (39.0-53.0) % MCV 100.2 H (80.0-100.0) fL RDW 17.7 H (11.5-15.5) % Chloride 109 H (98-107) mmol/L BUN 35 H (9-20) mg/dL Creatinine 3.90 H (0.66-1.25) mg/dL Glucose (74-99) mg/dL POC Glucose (mg/dL) (75-99) mg/dL Calcium 8.3 L (8.4-10.2) mg/dL ALT 62 H (4-49) U/L Alkaline Phosphatase 720 H (38-126) U/L Albumin 2.5 L (3.5-5.0) g/dL
--- NOTE | 2020-05-10 14:33 | CT ---
EXAMINATION TYPE: CT abdomen pelvis wo con DATE OF EXAM: 05/10/2020 COMPARISON: None HISTORY: Lymph node enlargement CT DLP: 914.3 mGycm Automated exposure control for dose reduction was used. TECHNIQUE: Helical acquisition of images was performed from the lung bases through the pelvis. FINDINGS: Exam markedly limited. Exam is markedly limited. There are bilateral pleural effusions. The heart is enlarged. Bowel gas pat tern is nonspecific. There appears to be retained debris within the stomach which appears distended c orrelate clinically. Diffuse soft tissue edema compatible with anasarca. There is a small amount of free fluid in the pelvis and evidence of mesenteric edema. Findings are no nspecific. Aorta of normal caliber. No obvious renal stones. Suspect accessory spleen. Liver grossly homogeneous. Assessment for adenopathy would require contrast. Disc herniation L4-L5 with severe degenerative disc disease. Bladder wall thickening correlate for cy stitis. There is a lymphadenopathy in the inguinal region bilaterally with the largest noted on the left nakul uring short axis of 1.5 cm. The largest on the right measuring 1.5 cm. There does appear to be soft t issue nodules in the femoral and pelvic region which likely represent additional areas of adenopathy. Due to the increased density within the mesentery assessment for adenopathy is limited without contr ast. IMPRESSION: 1. There is bilateral inguinal and suspected femoral lymphadenopathy. There does appear to be diffuse anasarca as well as increased density with in the mesentery suggestive of mesenteric edema and a sma ll amount of ascites which limits the exam. Consider a postcontrast exam for assessment for adenopath y additionally within the abdomen or pelvis given the limitation of the exam. 2. Bilateral pleural effusions 3. Gastric distention correlate clinically. 4. Correlate for chronic cystitis.
[2020-05-10] MEDS: cloNIDine HCL 0.1 MG TAB PO SCH ×2 (15:14→21:45)
[2020-05-10 17:13] LABS: Glucose,Whole Blood 178 mg/dL (75-99)
[2020-05-10 20:21] LABS: Glucose,Whole Blood 181 mg/dL (75-99)
[2020-05-10] MEDS: INSULIN DETEMIR (LEVEMIR) 100 UNIT/ML SYR SQ SCH (21:48)
[2020-05-10 22:48] LABS: Hemoglobin A1C 6.4 % (4.0-6.0)
[2020-05-10 23:34] LABS: Creatinine,Urine Random 22.7 mg/dL
[2020-05-10 23:41] LABS: Protein/Creatinine Ratio,Urine 11.197
[2020-05-11 06:18] LABS: Glucose,Whole Blood 94 mg/dL (75-99)
[2020-05-11] MEDS: FUROSEMIDE 100 MG in SODIUM CHLORIDE 0.9% 90 ML IV SCH ×3 (06:20→20:44)
[2020-05-11 07:04] LABS: Albumin 2.2 g/dL (3.5-5.0); Calcium 7.8 mg/dL (8.4-10.2); Potassium 3.6 mmol/L (3.5-5.1); Total Bilirubin 0.8 mg/dL (0.2-1.3); Total Protein 5.8 g/dL (6.3-8.2)
[2020-05-11] MEDS: LABETALOL 200 MG TAB PO SCH ×2 (08:53→20:45)
[2020-05-11] MEDS: cloNIDine HCL 0.1 MG TAB PO SCH ×3 (08:53→23:08)
[2020-05-11] MEDS: ASPIRIN 81 MG PO SCH (08:53)
[2020-05-11] MEDS: ATORVASTATIN 40 MG TAB PO SCH (08:53)
[2020-05-11] MEDS: ISOSORBIDE DINITRATE 10 MG TAB PO SCH ×3 (08:53→23:09)
[2020-05-11] MEDS: hydrALAZINE HCL 50 MG TAB PO SCH ×3 (08:53→23:08)
[2020-05-11] MEDS: amLODIPine 10 MG TAB PO SCH (08:54)
[2020-05-11] MEDS: HEPARIN SODIUM,PORCINE 5,000 UNIT/ML 1 ML VIAL SQ SCH ×2 (08:54→20:45)
[2020-05-11 11:00] LABS: Phosphorus 4.6 mg/dL (2.5-4.5)
--- NOTE | 2020-05-11 11:25 | P.GSCN ---
History of Present Illness Consult date: 05/11/20 History of present illness: 39-year-old male with previous medical history of cardiomyopathy and type 2 diabetes presented to the hospital with increased anasarca and edema the lower extremities along with the scrotum. Apparently, he was tried on diuretics as an outpatient unsuccessfully. On admission, he was found to have acute kidney failure along with congestive heart failure. He has Had continued medical workup with an echocardiogram that revealed moderate mitral regurgitation and severe tricuspid regurgitation along with pulmonary hypertension. He did have a CT of the abdomen and pelvis and was found to have inguinal lymphadenopathy. Nephrology is also on the case to rule out nephrotic syndrome. Currently, he states he is feeling slightly better than his arrival to the hospital. Review of Systems All systems: negative Past Medical History Past Medical History: Heart Failure, Hypertension, Myocardial Infarction ([place]), Renal Disease Last Myocardial Infarction Date:: 03/30/2018 History of Any Multi-Drug Resistant Organisms: None Reported Past Surgical History: Heart Catheterization With Stent Date of Last Stent Placement:: 03/31/2018 Past Psychological History: No Psychological Hx Reported Smoking Status: Never smoker Past Alcohol Use History: None Reported Past Drug Use History: None Reported Medications and Allergies Home Medications Medication Instructions Recorded Confirmed Type Acetaminophen [Tylenol 8 Hour] 650 mg PO Q6H PRN 05/09/20 05/09/20 History Aspirin EC [Ecotrin Low Dose] 81 mg PO DAILY 05/09/20 05/09/20 History Atorvastatin [Lipitor] 40 mg PO DAILY 05/09/20 05/09/20 History Carvedilol [Coreg] 50 mg PO BID 05/09/20 05/09/20 History Furosemide [Lasix] 20 mg PO BID 05/09/20 05/09/20 History Insulin Glargine,Hum.rec.anlog 10 unit SQ HS 05/09/20 05/09/20 History [Lantus Solostar] Isosorbide Dinitrate [Isordil] 10 mg PO TID 05/09/20 05/09/20 History Nitroglycerin Sl Tabs [Nitrostat] 0.4 mg SUBLINGUAL Q5M PRN 05/09/20 05/09/20 History Ondansetron HCl [Zofran] 4 mg PO Q8H PRN 05/09/20 05/09/20 History Sesame Oil 4 cap PO DAILY 05/09/20 05/09/20 History Sodium Bicarbonate Tab 650 mg PO BID 05/09/20 05/09/20 History amLODIPine [Norvasc] 10 mg PO DAILY 05/09/20 05/09/20 History hydrALAZINE HCL [Apresoline] 100 mg PO TID 05/09/20 05/09/20 History Allergies Allergy/AdvReac Type Severity Reaction Status Date / Time No Known Allergies Allergy Verified 05/09/20 13:44 Surgical - Exam Osteopathic Statement: *. No significant issues noted on an osteopathic structural exam other than those noted in the History and Physical/Consult. Vital Signs Temp Pulse Resp BP Pulse Ox 97.8 F 84 16 185/105 100 05/09/20 12:21 05/09/20 12:21 05/09/20 12:21 05/09/20 12:21 05/09/20 12:21 - General well nourished, no distress - ENT normal mucosa, no hearing loss - Neck no bruits, trachea midline - Respiratory normal respiratory effort - Abdomen Soft, nontender, nondistended, no rebound, no guarding, bilateral palpable lymphadenopathy of the inguinal region - Neurologic normal coordination, normal sensation - Psychiatric oriented to time, oriented to person, oriented to place Results - Labs 05/10/20 05:41 05/11/20 06:10 Abnormal Lab Results - Last 24 Hours (Table) 05/10/20 05/10/20 05/10/20 Range/Units 05:41 11:57 12:26 Chloride (98-107) mmol/L BUN (9-20) mg/dL Creatinine (0.66-1.25) mg/dL POC Glucose (mg/dL) 123 H (75-99) mg/dL Hemoglobin A1c 6.4 H (4.0-6.0) % Calcium (8.4-10.2) mg/dL Phosphorus (2.5-4.5) mg/dL Alkaline Phosphatase (38-126) U/L Total Protein (6.3-8.2) g/dL Albumin (3.5-5.0) g/dL Urine Protein 2+ H (Negative) Urine Glucose (UA) Trace H (Negative) Urine Blood Trace H (Negative) Hyaline Casts 3 H (0-2) /lpf Urine Mucus Rare H (None) /hpf U Random Total Protein (<12) mg/dL 05/10/20 05/10/20 05/10/20 Range/Units 17:09 20:20 23:10 Chloride (98-107) mmol/L BUN (9-20) mg/dL Creatinine (0.66-1.25) mg/dL POC Glucose (mg/dL) 178 H 181 H (75-99) mg/dL Hemoglobin A1c (4.0-6.0) % Calcium (8.4-10.2) mg/dL Phosphorus (2.5-4.5) mg/dL Alkaline Phosphatase (38-126) U/L Total Protein (6.3-8.2) g/dL Albumin (3.5-5.0) g/dL Urine Protein (Negative) Urine Glucose (UA) (Negative) Urine Blood (Negative) Hyaline Casts (0-2) /lpf Urine Mucus (None) /hpf U Random Total Protein 258 H (<12) mg/dL 05/11/20 05/11/20 Range/Units 06:10 06:10 Chloride 109 H (98-107) mmol/L BUN 35 H (9-20) mg/dL Creatinine 4.28 H (0.66-1.25) mg/dL POC Glucose (mg/dL) (75-99) mg/dL Hemoglobin A1c (4.0-6.0) % Calcium 7.8 L (8.4-10.2) mg/dL Phosphorus 4.6 H (2.5-4.5) mg/dL Alkaline Phosphatase 641 H (38-126) U/L Total Protein 5.8 L (6.3-8.2) g/dL Albumin 2.2 L (3.5-5.0) g/dL Urine Protein (Negative) Urine Glucose (UA) (Negative) Urine Blood (Negative) Hyaline Casts (0-2) /lpf Urine Mucus (None) /hpf U Random Total Protein (<12) mg/dL Diabetes panel 05/10/20 05/11/20 Range/Units 05:41 06:10 Sodium 139 (137-145) mmol/L Potassium 3.6 (3.5-5.1) mmol/L Chloride 109 H (98-107) mmol/L Carbon Dioxide 28 (22-30) mmol/L BUN 35 H (9-20) mg/dL Creatinine 4.28 H (0.66-1.25) mg/dL Glucose 90 (74-99) mg/dL Hemoglobin A1c 6.4 H (4.0-6.0) % Calcium 7.8 L (8.4-10.2) mg/dL AST 35 (17-59) U/L ALT 49 (4-49) U/L Alkaline Phosphatase 641 H (38-126) U/L Total Protein 5.8 L (6.3-8.2) g/dL Albumin 2.2 L (3.5-5.0) g/dL Calcium panel 05/11/20 05/11/20 Range/Units 06:10 06:10 Calcium 7.8 L (8.4-10.2) mg/dL Phosphorus 4.6 H (2.5-4.5) mg/dL Albumin 2.2 L (3.5-5.0) g/dL Pituitary panel 05/11/20 Range/Units 06:10 Sodium 139 (137-145) mmol/L Potassium 3.6 (3.5-5.1) mmol/L Chloride 109 H (98-107) mmol/L Carbon Dioxide 28 (22-30) mmol/L BUN 35 H (9-20) mg/dL Creatinine 4.28 H (0.66-1.25) mg/dL Glucose 90 (74-99) mg/dL Calcium 7.8 L (8.4-10.2) mg/dL Adrenal panel 05/11/20 Range/Units 06:10 Sodium 139 (137-145) mmol/L Potassium 3.6 (3.5-5.1) mmol/L Chloride 109 H (98-107) mmol/L Carbon Dioxide 28 (22-30) mmol/L BUN 35 H (9-20) mg/dL Creatinine 4.28 H (0.66-1.25) mg/dL Glucose 90 (74-99) mg/dL Calcium 7.8 L (8.4-10.2) mg/dL Total Bilirubin 0.8 (0.2-1.3) mg/dL AST 35 (17-59) U/L ALT 49 (4-49) U/L Alkaline Phosphatase 641 H (38-126) U/L Total Protein 5.8 L (6.3-8.2) g/dL Albumin 2.2 L (3.5-5.0) g/dL Assessment and Plan (1) Lymphadenopathy Narrative/Plan: 39-year-old male with anasarca, acute kidney failure, type 2 diabetes mellitus with increasing scrotal edema and lower extremity edema - Noted to have significant palpable lymphadenopathy of bilateral inguinal region that is also confirmed on CT of the abdomen and pelvis. Medical team is requesting biopsy of the lymph node. This will be performed tomorrow. Patient is agreeable to this plan. All questions were answered. Current Visit: Yes Status: Acute Code(s): R59.1 - GENERALIZED ENLARGED LYMPH NODES SNOMED Code(s): 46874902
--- NOTE | 2020-05-11 11:44 | P.PN ---
Subjective Progress Note Date: 05/11/20 59-year-old start seen in the office recently moving from [place] to be close to his mother. Apparently was diagnosed with cardiomyopathy ischemic type with angiogram and angioplasty back in 2018 history of type 2 diabetes on medication and history of anasarca who was bothered by the severity of the swelling the edema with large swelling in the scrotum. Was seen on week early started on diuretics without any improvement patient had gained 5 pounds within 1 week despite being on furosemide. The blood pressure remained extremely high at the time being on 3 medication at the time with no respond. Patient was sent to the emergency department seen and evaluated found to be in acute kidney failure with severe anasarca and congestive heart failure with slight anemia as well with significant abnormal liver function test. Troponin was negative but his BNP was 69,000. Chest x-ray showed moderate enlargement of the cardiac silhouette correlate with pulmonary vascular congestion and trace of pulmonary edema was started on Lasix a drip admitted to the hospital will be seen cardiology and nephrology will continue to treat his anasarca. 05/10: Patient remains on the cardiac stepdown unit. He states he feels a little bit better from yesterday. He is scheduled to see nephrology and cardiology toeda graham. Ultrasound bilateral lower extremities negative for DVT. VQ scan echocardiogram are pending. Plan is to obtain lymph node biopsy. Discussed case with Dr. Hebert and she suggested undergoing CAT scan of the abdomen and pelvis first. She will be ruling out nephrotic syndrome. Previous lab work will be obtained. The patient states he was first diagnosed with diabetes at age 18 and was placed on insulin and Glucophage. 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 Cataract surgery on the right and retinal surgeries. Patient is afebrile, heart rate 72, blood pressure 185/96, pulse ox 97% on room air. Repeat blood work revealed WBC 4.3, hemoglobin 10, platelet count 272. BUN 35 and creatinine 3.90. Chloride 109, potassium 3.6, sodium 140. CO2 26. Blood sugars are running between 84 and 151. Total bilirubin 0.9, AST 40, ALT 62, alkaline phosphatase 720. Echocardiogram reveals EF of 45-50% with moderate mitral regurgitation, severe tricuspid regurgitation, severe pulmonary hypertension, moderate pulmonic regurgitation, large pleural effusion, small generalized pericardial effusion. Hepatitis panel negative. Coronavirus PCR not detected. 05/11: VQ scan was normal. CAT scan of the abdomen and pelvis without contrast revealed bilateral inguinal and suspected from oral lymphadenopathy. There does appear to be diffuse anasarca as well as increased density within the mesentery suggestive of mesenteric edema and a small amount of ascites which limits the exam. Consider post contrast exam for assessment of adenopathy. Bilateral pleural effusions. Gastric distention. Chronic cystitis. Consult has been added for Dr. Cox for biopsy of enlarged lymph node and this has been scheduled for tomorrow, patient has been continued on a Lasix drip. He denies any significant improvement continues to have lower extremity edema. He has been afebrile, heart rate 78, blood pressure 156/80, pulse ox 90% on room air. Repeat blood work reveals worsening renal function with BUN 35 and creatinine 4.28. Alkaline phosphatase 641. Reviewed laboratory studies from [facility] in [facility]. Patient had a pericardial biopsy that showed mesothelial lined fibrous tissue with mild nonspecific chronic inflammation. No evidence of microorganisms. Creatinine at that facility was running 3.4-4.2. Review of Systems CONSTITUTIONAL: Well-developed no shortness of breath no cough or wheezes. No fever.No chills. EYES: No icterus sclerae, no conjunctivitis. EARS, NOSE, MOUTH, THROAT, and FACE: No sore throat, lymphadenopathy, carotid b ruits or deformity. RESPIRATORY: Positive shortness of breath. CARDIOVASCULAR: Has a PND orthopnea and angina with significant anasarca and edema. GASTROINTESTINAL: No Abd pain, Nausea or vomiting, no Diarrhea or constipation, No GI Bleed, no distention or masses. GENITOURINARY: Negative for Hematuria or UTI, no kidney stones. Significant swelling in the scrotum fluid retention. INTEGUMENT/BREAST: Negative for any muscular injury with mild osteoarthritis.. Significant edema lower extremity. HEMATOLOGIC/LYMPHATIC: Negative for bleed or purpura. MUSCULOSKELTAL: Negative for Myalgia or arthralgia. NEURLOGICAL: No LOC, Sz or syncope, blurred vision dizziness or abnormality. BEHAVIORAL/PSYCH: Negative. ENDOCRINE: Negative. Physical Examination General Appearance: Alert, cooperative, no distress, appears stated age. Patient appears to be in no acute distress.Patient appears fatigued. Neck HEENT: Supple, no lymphadenopathy, no thyroid enlargement, no carotid brui ts. Lungs: Decreased expansion with deep inspiration positive for rhonchi with mild crackles in the bases with mild expiratory wheezes. Chest Wall: Decrease expansion with deep inspiration no tenderness and no deformity was found on exam, no costochondral pain or discomfort. Heart: Regular rate and rhythm, S1, S2 +3 positive JVD Back: Symmetric, no curvature, ROM normal, no CVA tenderness. Abdomen: Soft, non-tender, bowel sounds active all four quadrants, slight hepatomegaly with significant anasarca and abdominal wall area. Extremities: 3+ edema bilaterally with slight discoloration from the knee down. Pulses: 2+ and symmetric. Skin: Skin color, texture, tugor normal, no rashes or lesions. Neurologic: Alert oriented x3 cranial nerves II through XII intact, no motor deficit, no abnormal balance or gait. Assessment and Plan 1. Acute on chronic diastolic heart failure. Continue Lasix drip, monitor daily weight, electrolytes and renal function. Consults with cardiology and nephrology appreciated. Obtained previous reports from his physician in [place]. 2 anasarca: Continue diuretics and titrate medication gradually. CAT scan of the abdomen and pelvis without contrast has been ordered. 3 acute kidney injury with chronic kidney disease. Normal ultrasound of the kidneys. Obtained previous lab work from [place]. Nephrology consult appreciated. 4 advance CAD: Post angioplasty and stent placement in 2018 patient was seen cardiology and apparently had more blockage with no angiogram lately. 5 acute anemia: Mostly iron deficiency with chronic disease most likely affected by the kidney function continue iron supplement. 6 abnormal liver function test. Hepatitis panel negative. 7 hyperlipidemia: Has been on atorvastatin 40 mg a day. 8 advanced noncontrolled hypertension. Continue Norvasc 10 mg daily, Catapres scheduled 3 times daily and as needed, hydralazine 100 mg 3 times daily, labetalol 20 mg twice daily. 9 type 2 diabetes: On insulin, patient remain on Lantus and Humalog continue Accu-Chek with sliding scales coverage. A1c is 6.4. 10 Valvular heart disease with moderate mitral regurgitation, severe tricuspid regurgitation, moderate pulmonary regurgitation. 11 severe pulmonary hypertension. 12 GERD/GI prophylaxis: Patient will be on pantoprazole. 13 DVT prophylaxis: Patient will be on heparin 5000 units subcutaneous twice a day. 14 COVID-19 infection at present. CODE STATUS: Full code. Discharge plan: home Impression and plan of care have been directed as dictated by the signing physician. Paige Muir nurse practitioner acting as scribe for signing physician. Objective - Vital Signs Vital signs: Vital Signs Temp 98.2 F 05/11/20 05:01 Pulse 78 05/11/20 05:01 Resp 16 05/11/20 05:01 BP 156/80 05/11/20 05:01 Pulse Ox 98 05/11/20 05:01 Intake & Output 05/10/20 05/11/20 05/11/20 18:59 06:59 18:59 Intake Total 751.5 325.5 Output Total 1700 0 Balance -948.5 -1724.5 Intake: IV 80 Furosemide 100 mg In 80 Sodium Chloride 0.9% 90 ml @ 10 MG/HR 10 mls/hr IV .Q10H KATHERINE Rx#: [id number] Intake, IV Titration 191.5 85.5 Amount Furosemide 100 mg In 191.5 85.5 Sodium Chloride 0.9% 90 ml @ 10 MG/HR 10 mls/hr IV .Q10H KATHERINE Rx#: [id number] Oral 480 240 Output: Urine 1699 2049 - Labs CBC & Chem 7: 05/10/20 05:41 05/11/20 06:10 Labs: Abnormal Lab Results - Last 24 Hours (Table) 05/10/20 05/10/20 05/10/20 Range/Units 05:41 11:57 12:26 Chloride (98-107) mmol/L BUN (9-20) mg/dL Creatinine (0.66-1.25) mg/dL POC Glucose (mg/dL) 123 H (75-99) mg/dL Hemoglobin A1c 6.4 H (4.0-6.0) % Calcium (8.4-10.2) mg/dL Alkaline Phosphatase (38-126) U/L Total Protein (6.3-8.2) g/dL Albumin (3.5-5.0) g/dL Urine Protein 2+ H (Negative) Urine Glucose (UA) Trace H (Negative) Urine Blood Trace H (Negative) Hyaline Casts 3 H (0-2) /lpf Urine Mucus Rare H (None) /hpf U Random Total Protein (<12) mg/dL 05/10/20 05/10/20 05/10/20 Range/Units 17:09 20:20 23:10 Chloride (98-107) mmol/L BUN (9-20) mg/dL Creatinine (0.66-1.25) mg/dL POC Glucose (mg/dL) 178 H 181 H (75-99) mg/dL Hemoglobin A1c (4.0-6.0) % Calcium (8.4-10.2) mg/dL Alkaline Phosphatase (38-126) U/L Total Protein (6.3-8.2) g/dL Albumin (3.5-5.0) g/dL Urine Protein (Negative) Urine Glucose (UA) (Negative) Urine Blood (Negative) Hyaline Casts (0-2) /lpf Urine Mucus (None) /hpf U Random Total Protein 258 H (<12) mg/dL 05/11/20 Range/Units 06:10 Chloride 109 H (98-107) mmol/L BUN 35 H (9-20) mg/dL Creatinine 4.28 H (0.66-1.25) mg/dL POC Glucose (mg/dL) (75-99) mg/dL Hemoglobin A1c (4.0-6.0) % Calcium 7.8 L (8.4-10.2) mg/dL Alkaline Phosphatase 641 H (38-126) U/L Total Protein 5.8 L (6.3-8.2) g/dL Albumin 2.2 L (3.5-5.0) g/dL Urine Protein (Negative) Urine Glucose (UA) (Negative) Urine Blood (Negative) Hyaline Casts (0-2) /lpf Urine Mucus (None) /hpf U Random Total Protein (<12) mg/dL
[2020-05-11 12:13] LABS: Glucose,Whole Blood 77 mg/dL (75-99)
--- NOTE | 2020-05-11 12:17 | PN ---
PROGRESS NOTE Patient is seen for followup for acute kidney injury. He was admitted with increased lower extremity edema and is currently maintained on Lasix drip. Ejection fraction was noted to be at 40%-45%. Patient has a long-standing history of type 1 diabetes. His urine did show 2+ protein and urine protein creatinine ratio was 11, suggesting about 11 g of proteinuria. This will definitely contribute to his lower extremity edema with nephrotic syndrome. Patient has inguinal lymphadenopathy. CAT scan of the abdomen did not show any intraabdominal lymphadenopathy. At this point, I will continue with the Lasix drip. I will decrease it to 5 mg an hour. We will obtain baseline serologies to rule out other causes of proteinuria and patient will likely need a kidney biopsy down the road. We also need to obtain previous labs to assess patient's baseline renal function. Patient states that he is feeling better. His edema has improved. He denies any significant shortness of breath. PHYSICAL EXAMINATION: Blood pressure is 156/80, heart rate 78 per minute, he is afebrile. Examination of the heart S1, S2. Examination of the lungs, bilateral breath sounds are heard. Abdomen is soft, obese, nontender. Examination of the lower extremities shows 3 to 4+ edema bilaterally. [employer] exam grossly intact. LABS: Show sodium 139, potassium 3.6, chloride 109, BUN 35, creatinine 4.28, phosphorus 4.6, calcium 7.8, protein creatinine ratio 11. ASSESSMENT: 1. Acute kidney injury, cardiorenal as well as possibly related to the NSAIDs. Serum creatinine is slightly worse today. I will continue with the Lasix drip with decreased to 5 mg an hour. We will obtain baseline serologies to rule out other causes of proteinuria. The patient does have nephrotic syndrome and we will likely need to proceed with kidney biopsy down the road. 2. Proteinuria, nephrotic range with low albumin. Check lipid panel, check baseline serologies, nephrotic syndrome, most likely secondary to diabetic nephropathy but rule out other causes of proteinuria. 3. Cardiomyopathy, ejection fraction 40%. 4. Inguinal lymphadenopathy with plans for lymph node biopsies. No evidence of intraabdominal lymphadenopathy. PLAN: Check baseline serologies. Decrease Lasix drip to 5 mg an hour, repeat labs in a.m. Patient is advised that he may need a kidney biopsy down the road. He is also advised to continue to avoid the use of NSAIDs. MMODL / IJN: [id number] /
[2020-05-11 16:50] LABS: Glucose,Whole Blood 131 mg/dL (75-99)
[2020-05-11 17:31] LABS: % Iron Saturation 9.46 (15.00-50.00)
--- NOTE | 2020-05-11 18:08 | P.CON ---
Consult Note - . Assessment/Plan:: This is Dr. Martines dictating a consult on this patient The patient was interviewed and examined IMPRESSION / ASSESSMENT: Congestive heart failure, anasarca, LV systolic dysfunction consistent with likely restrictive cardio myopathy, likely infiltrative cardio myopathy Ascites, pleural effusion and a small pericardial effusion Elevated BNP consistent with congestive heart failure History of hypertension History of chronic kidney disease creatinine greater than 3 Pulmonary hypertension severe PLAN: Continue IV diuresis, Lasix drip Antihypertensive therapy to continue Consider switching from amlodipine to Procardia XL while continuing labetalol. Labetalol dose can be increased HPI patient sent to the hospital with bilateral lower extremity edema, worsening renal function weakness and weight gain of 9 pounds ROS: No fever chills or rigors, no cough, phlegm or expectoration, no nausea, vomiting or diarrhea, no hematuria, dysuria, no musculoskeletal complaints, no strokes or seizures, no skin lesions. EXAMINATION: Blood pressure 142/70 156/80, pulse rate in the 70s, afebrile Breath sounds are reduced bilaterally at the bases Loud P2 on examination, Distended abdomen Lower extremity edema REVIEW OF LABS, ECG & MEDICAL DATA Sodium 139 potassium 3.6 BUN 35 creatinine 4.28 Twelve-lead ECG shows sinus rhythm with T-wave inversions in V6 and lead 1 and aVL, normal ST segments
[2020-05-11 19:42] LABS: Anti-DNA, DS unit <1.0 IU/mL; DNA Double-Stranded NEGATIVE (NEGATIVE)
[2020-05-11 20:28] LABS: Glucose,Whole Blood 154 mg/dL (75-99)
[2020-05-11] MEDS: INSULIN DETEMIR (LEVEMIR) 100 UNIT/ML SYR SQ SCH (20:45)
[2020-05-12 06:30] LABS: Glucose,Whole Blood 67 mg/dL (75-99)
[2020-05-12 06:47] LABS: Glucose,Whole Blood 60 mg/dL (75-99)
[2020-05-12] MEDS ORDERED: DEXTROSE 50% SYRINGE 50 ML IVP ONE (06:48)
[2020-05-12 07:02] LABS: Glucose,Whole Blood 144 mg/dL (75-99)
[2020-05-12] MEDS: cloNIDine HCL 0.1 MG TAB PO SCH ×3 (08:20→21:10)
[2020-05-12] MEDS: amLODIPine 10 MG TAB PO SCH (08:20)
[2020-05-12] MEDS: HEPARIN SODIUM,PORCINE 5,000 UNIT/ML 1 ML VIAL SQ SCH ×2 (08:20→21:09)
[2020-05-12] MEDS: hydrALAZINE HCL 50 MG TAB PO SCH ×3 (08:20→21:10)
[2020-05-12] MEDS: ASPIRIN 81 MG PO SCH (08:20)
[2020-05-12] MEDS: ATORVASTATIN 40 MG TAB PO SCH (08:20)
[2020-05-12] MEDS: LABETALOL 200 MG TAB PO SCH ×2 (08:21→21:10)
[2020-05-12] MEDS: ISOSORBIDE DINITRATE 10 MG TAB PO SCH ×3 (08:21→21:10)
[2020-05-12 09:48] LABS: Albumin 2.5 g/dL (3.5-5.0); Calcium 7.9 mg/dL (8.4-10.2); Potassium 3.5 mmol/L (3.5-5.1); Total Bilirubin 0.8 mg/dL (0.2-1.3); Total Protein 6.2 g/dL (6.3-8.2)
[2020-05-12] MEDS ORDERED: SODIUM CHLORIDE 0.9% 1,000 ML IV ONE (11:46)
[2020-05-12] MEDS ORDERED: ONDANSETRON 4 MG/2 ML VIAL IVP ONE (11:47)
--- NOTE | 2020-05-12 13:36 | P.PN ---
Subjective Progress Note Date: 05/12/20 59-year-old start seen in the office recently moving from [place] to be close to his mother. Apparently was diagnosed with cardiomyopathy ischemic type with angiogram and angioplasty back in 2018 history of type 2 diabetes on medication and history of anasarca who was bothered by the severity of the swelling the edema with large swelling in the scrotum. Was seen on week early started on diuretics without any improvement patient had gained 5 pounds within 1 week despite being on furosemide. The blood pressure remained extremely high at the time being on 3 medication at the time with no respond. Patient was sent to the emergency department seen and evaluated found to be in acute kidney failure with severe anasarca and congestive heart failure with slight anemia as well with significant abnormal liver function test. Troponin was negative but his BNP was 69,000. Chest x-ray showed moderate enlargement of the cardiac silhouette correlate with pulmonary vascular congestion and trace of pulmonary edema was started on Lasix a drip admitted to the hospital will be seen cardiology and nephrology will continue to treat his anasarca. 05/10: Patient remains on the cardiac stepdown unit. He states he feels a little bit better from yesterday. He is scheduled to see nephrology and cardiology toeda graham. Ultrasound bilateral lower extremities negative for DVT. VQ scan echocardiogram are pending. Plan is to obtain lymph node biopsy. Discussed case with Dr. Hebert and she suggested undergoing CAT scan of the abdomen and pelvis first. She will be ruling out nephrotic syndrome. Previous lab work will be obtained. The patient states he was first diagnosed with diabetes at age 18 and was placed on insulin and Glucophage. 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 Cataract surgery on the right and retinal surgeries. Patient is afebrile, heart rate 72, blood pressure 185/96, pulse ox 97% on room air. Repeat blood work revealed WBC 4.3, hemoglobin 10, platelet count 272. BUN 35 and creatinine 3.90. Chloride 109, potassium 3.6, sodium 140. CO2 26. Blood sugars are running between 84 and 151. Total bilirubin 0.9, AST 40, ALT 62, alkaline phosphatase 720. Echocardiogram reveals EF of 45-50% with moderate mitral regurgitation, severe tricuspid regurgitation, severe pulmonary hypertension, moderate pulmonic regurgitation, large pleural effusion, small generalized pericardial effusion. Hepatitis panel negative. Coronavirus PCR not detected. 05/11: VQ scan was normal. CAT scan of the abdomen and pelvis without contrast revealed bilateral inguinal and suspected from oral lymphadenopathy. There does appear to be diffuse anasarca as well as increased density within the mesentery suggestive of mesenteric edema and a small amount of ascites which limits the exam. Consider post contrast exam for assessment of adenopathy. Bilateral pleural effusions. Gastric distention. Chronic cystitis. Consult has been added for Dr. Cox for biopsy of enlarged lymph node and this has been scheduled for tomorrow, patient has been continued on a Lasix drip. He denies any significant improvement continues to have lower extremity edema. He has been afebrile, heart rate 78, blood pressure 156/80, pulse ox 90% on room air. Repeat blood work reveals worsening renal function with BUN 35 and creatinine 4.28. Alkaline phosphatase 641. Reviewed laboratory studies from [facility] in [facility]. Patient had a pericardial biopsy that showed mesothelial lined fibrous tissue with mild nonspecific chronic inflammation. No evidence of microorganisms. Creatinine at that facility was running 3.4-4.2. 05/12: Patient remains on the cardiac stepdown unit. He is scheduled for biopsy at 1:[address] Cox. Discussed in detail patient's results with the patient and his mother and discussed possible need for hemodialysis. He has been afebrile, heart rate 76, blood pressure 165/88, pulse ox 98% on room air. Repeat blood work revealed BUN 38 and creatinine 4.39. Blood sugars are running between 60 and 154. AST 51, ALT 51, alkaline phosphatase 676. Consult has been added for Dr. Lindsey regarding severe pulmonary hypertension. Patient is continued on Lasix drip. Nephrology is following with plan for kidney biopsy down the road. Review of Systems CONSTITUTIONAL: Well-developed no shortness of breath no cough or wheezes. No fever. No chills. EYES: No icterus sclerae, no conjunctivitis. EARS, NOSE, MOUTH, THROAT, and FACE: No sore throat, lymphadenopathy, carotid bruits or deformity. RESPIRATORY: Positive shortness of breath. CARDIOVASCULAR: Has a PND orthopnea and angina with significant anasarca and edema. GASTROINTESTINAL: No Abd pain, Nausea or vomiting, no Diarrhea or constipation, No GI Bleed, no distention or masses. GENITOURINARY: Negative for Hematuria or UTI, no kidney stones. Significant swelling in the scrotum fluid retention. INTEGUMENT/BREAST: Negative for any muscular injury with mild osteoarthritis.. Significant edema lower extremity. HEMATOLOGIC/LYMPHATIC: Negative for bleed or purpura. MUSCULOSKELTAL: Negative for Myalgia or arthralgia. NEURLOGICAL: No LOC, Sz or syncope, blurred vision dizziness or abnormality. BEHAVIORAL/PSYCH: Negative. ENDOCRINE: Negative. Physical Examination General Appearance: Alert, cooperative, no distress, appears stated age. Patie nt appears to be in no acute distress.Patient appears fatigued. Mother is at bedside. Neck HEENT: Supple, no lymphadenopathy, no thyroid enlargement, no carotid bruits. Lungs: Decreased expansion with deep inspiration positive for rhonchi with mild crackles in the bases with mild expiratory wheezes. Chest Wall: Decrease expansion with deep inspiration no tenderness and no deformity was found on exam, no costochondral pain or discomfort. Heart: Regular rate and rhythm, S1, S2 +3 positive JVD Back: Symmetric, no curvature, ROM normal, no CVA tenderness. Abdomen: Soft, non-tender, bowel sounds active all four quadrants, slight hepatomegaly with significant anasarca and abdominal wall area. Extremities: 3+ edema bilaterally with slight discoloration from the knee down. Pulses: 2+ and symmetric. Skin: Skin color, texture, tugor normal, no rashes or lesions. Neurologic: Alert oriented x3 cranial nerves II through XII intact, no motor deficit, no abnormal balance or gait. Assessment and Plan 1. Acute on chronic diastolic heart failure. Continue Lasix drip, monitor daily weight, electrolytes and renal function. Consults with cardiology and nephrology appreciated. Obtained previous reports from his physician in [place]. 2 restrictive cardiomyopathy, amyloidosis with generalized anasarca. Continue diuresing. 3 acute kidney injury with chronic kidney disease stage IV. Normal ultrasound of the kidneys. Obtained previous lab work from [place]. Nephrology consult appreciated. 4 advance CAD: Post angioplasty and stent placement in 2018 patient was seen cardiology and apparently had more blockage with no angiogram lately. 5 acute anemia due to chronic kidney disease 6 abnormal liver function test. Hepatitis panel negative. 7 hyperlipidemia: Has been on atorvastatin 40 mg a day. 8 advanced noncontrolled hypertension. Continue Norvasc 10 mg daily, Catapres scheduled 3 times daily and as needed, hydralazine 100 mg 3 times daily, labetalol 20 mg twice daily. 9 type 2 diabetes: On insulin, patient remain on Lantus and Humalog continue Accu-Chek with sliding scales coverage. A1c is 6.4. 10 Valvular heart disease with moderate mitral regurgitation, severe tricuspid regurgitation, moderate pulmonary regurgitation. 11 severe pulmonary hypertension. 12 GERD/GI prophylaxis: Continue pantoprazole. 13 DVT prophylaxis: Patient will be on heparin 5000 units subcutaneous twice a day. 14 COVID-19 infection not present. CODE STATUS: Full code. Discharge plan: home Impression and plan of care have been directed as dictated by the signing physician. Paige Muir nurse practitioner acting as scribe for signing physic bekah. Objective - Vital Signs Vital signs: Vital Signs Temp 97.8 F 05/12/20 03:27 Pulse 76 05/12/20 08:00 Resp 16 05/12/20 08:00 BP 165/88 05/12/20 08:00 Pulse Ox 98 05/12/20 08:00 Intake & Output 05/11/20 05/12/20 05/12/20 18:59 06:59 18:59 Intake Total 704.833 379.167 Output Total 1000 2450 Balance -295.167 -2070.833 Weight 105.415 kg 101.4 kg Intake: IV 20 Furosemide 100 mg In 20 Sodium Chloride 0.9% 90 ml @ 5 MG/HR 5 mls/hr IV .Q20H KATHERINE Rx#:[id number] Intake, IV Titration 44.833 99.167 Amount Furosemide 100 mg In 44.833 99.167 Sodium Chloride 0.9% 90 ml @ 5 MG/HR 5 mls/hr IV .Q20H KATHERINE Rx#:[id number] Oral 660 260 Output: Urine 1000 2450 - Labs CBC & Chem 7: 05/10/20 05:41 05/12/20 09:12 Labs: Abnormal Lab Results - Last 24 Hours (Table) 05/11/20 05/11/20 05/11/20 Range/Units 06:10 06:10 11:32 POC Glucose (mg/dL) (75-99) mg/dL Phosphorus 4.6 H (2.5-4.5) mg/dL Iron 21 L (65-175) ug/dL TIBC 222 L (228-460) ug/dL % Saturation 9.46 L (15.00-50.00) PTH Intact 162.1 H (14.0-72.0) pg/mL 05/11/20 05/11/20 05/12/20 Range/Units 16:48 20:26 06:29 POC Glucose (mg/dL) 131 H 154 H 67 L (75-99) mg/dL Phosphorus (2.5-4.5) mg/dL Iron (65-175) ug/dL TIBC (228-460) ug/dL % Saturation (15.00-50.00) PTH Intact (14.0-72.0) pg/mL 05/12/20 05/12/20 Range/Units 06:44 07:00 POC Glucose (mg/dL) 60 L 144 H (75-99) mg/dL Phosphorus (2.5-4.5) mg/dL Iron (65-175) ug/dL TIBC (228-460) ug/dL % Saturation (15.00-50.00) PTH Intact (14.0-72.0) pg/mL
[2020-05-12 13:59] LABS: C-ANCA <1:20 Titer (<1:20)
[2020-05-12] MEDS ORDERED: PROPOFOL 10 MG/ML 20 ML VIAL IV ONE (14:23)
[2020-05-12] MEDS ORDERED: LIDOCAINE 1% INJ 10MG/ML (20 ML MDV) ONE (14:23)
[2020-05-12] MEDS ORDERED: SODIUM CHLORIDE 0.9% 50 ML with ceFAZolin 1,000 MG IV ONE ×2 (14:45)
--- NOTE | 2020-05-12 14:45 | P.CNPUL ---
History of Present Illness Consult date: 05/12/20 Requesting physician: Jj Galindo Reason for consult: dyspnea, abnormal CXR/CT Chief complaint: Lower extremity edema History of present illness: This is a very pleasant 39-year-old gentleman who was recently moved to [place] from [facility]. He has a history of coronary artery disease with previous stent placement 2 in 2018, hyperlipidemia, hypertension, insulin-dependent diabetes mellitus, type I diagnosed at age 18, diabetic retinopathy of the left eye since 2017. He also states he had a history of cardiac arrest prior to foot surgery. He has restrictive cardiomyopathy. He presented to our emergency room on the of this month with a week of increasing lower extremity edema. Chest x-ray revealed moderate enlargement of the cardiac pericardiac silhouette. Pulmonary vascular congestion. Trace pleural effusions. Echocardiogram revealed severe concentric left ventricular hypertrophy. Left ventricular cabrera have a break groundglass appearance. Consider amyloidosis. Mildly impaired left ventricular systolic function with ejection fraction 45-50%. Global wall thickness of the right ventricle mildly enlarged. Moderate mitral regurgitation. Severe tricuspid regurgitation. Severe pulmonary hypertension. RVSP 78.98 mmHg. Small generalized pericardial effusion. Large pleural effusion. Renal ultrasound revealed no hydronephrosis. Venous Dopplers of the lower extremity revealed no DVT. VQ scan revealed no pulmonary emboli. Computed tomography scan of the abdomen and pelvis revealed bilateral inguinal and suspected femoral lymphadenopathy. There appears to be diffuse anasarca as well as increased density within the mesenteric suggestive of mesenteric edema and a small amount of ascites. Bilateral pleural effusions. We're consulted today. The patient is seen on the selective care unit. Awake and alert in no acute distress. He is a very good historian of his past medical history. He has had some shortness of breath but is maintaining good O2 saturation in the upper 90s on room air. He's been afebrile. Sodium 138. Potassium 3.5. Creati nine 4.39. Millard virus not detected. Hepatitis screen negative. P-ANCA, c- ANCA negative. JOHANA negative. He is currently on Lasix 60 mg every 12 hours. Review of Systems REVIEW OF SYSTEMS: CONSTITUTIONAL: Positive for weight gain. EYES: Denies change in vision. Blind in left eye EARS, NOSE, MOUTH, THROAT: Denies headaches, denies sore throat. CARDIOVASCULAR: Denies chest pain, palpitations or syncopal episodes. RESPIRATORY: Positive for mild shortness of breath, no cough, congestion or hemoptysis. GASTROINTESTINAL: Denies change in appetite, denies abdominal pain GENITOURINARY: Denies hematuria, denies infections. MUSKULOSKELETAL: Positive for lower extremity edema INTEGUMENTARY: Denies rash, denies eczema. NEUROLOGICAL: Denies recent memory loss, no recent seizure activity. PSYCHIATRIC: Denies anxiety, denies depression. HEMATOLOGIC/LYMPHATIC: Denies anemia, denies enlarged lymph nodes. Past Medical History Past Medical History: Heart Failure, Hypertension, Myocardial Infarction (CO), Renal Disease Last Myocardial Infarction Date:: 03/30/2018 History of Any Multi-Drug Resistant Organisms: None Reported Past Surgical History: Heart Catheterization With Stent Date of Last Stent Placement:: 03/31/2018 Past Psychological History: No Psychological Hx Reported Smoking Status: Never smoker Past Alcohol Use History: None Reported Past Drug Use History: None Reported Medications and Allergies Home Medications Medication Instructions Recorded Confirmed Type Acetaminophen [Tylenol 8 Hour] 650 mg PO Q6H PRN 05/09/20 05/09/20 History Aspirin EC [Ecotrin Low Dose] 81 mg PO DAILY 05/09/20 05/09/20 History Atorvastatin [Lipitor] 40 mg PO DAILY 05/09/20 05/09/20 History Carvedilol [Coreg] 50 mg PO BID 05/09/20 05/09/20 History Furosemide [Lasix] 20 mg PO BID 05/09/20 05/09/20 History Insulin Glargine,Hum.rec.anlog 10 unit SQ HS 05/09/20 05/09/20 History [Lantus Solostar] Isosorbide Dinitrate [Isordil] 10 mg PO TID 05/09/20 05/09/20 History Nitroglycerin Sl Tabs [Nitrostat] 0.4 mg SUBLINGUAL Q5M PRN 05/09/20 05/09/20 History Ondansetron HCl [Zofran] 4 mg PO Q8H PRN 05/09/20 05/09/20 History Sesame Oil 4 cap PO DAILY 05/09/20 05/09/20 History Sodium Bicarbonate Tab 650 mg PO BID 05/09/20 05/09/20 History amLODIPine [Norvasc] 10 mg PO DAILY 05/09/20 05/09/20 History hydrALAZINE HCL [Apresoline] 100 mg PO TID 05/09/20 05/09/20 History Allergies Allergy/AdvReac Type Severity Reaction Status Date / Time No Known Allergies Allergy Verified 05/09/20 13:44 Physical Exam Vitals: Vital Signs Temp Pulse Resp BP Pulse Ox 05/12/20 11:41 97.4 F L 71 18 158/91 98 05/12/20 11:29 16 05/12/20 08:00 76 16 165/88 98 05/12/20 03:27 97.8 F 82 18 158/74 98 05/12/20 00:00 97.9 F 79 17 166/79 96 05/11/20 20:00 98.2 F 80 18 175/93 97 05/11/20 16:00 82 155/88 96 Intake and Output 05/11/20 05/12/20 05/12/20 22:59 06:59 14:59 Intake Total 219.167 280 100 Output Total 400 2450 425 Balance -180.833 2170 -325 Intake: IV 20 100 Furosemide 100 mg In 20 Sodium Chloride 0.9% 90 ml @ 5 MG/HR 5 mls/hr IV .Q20H KATHERINE Rx#:[id number] Intake, IV Titration 99.167 Amount Furosemide 100 mg In 99.167 Sodium Chloride 0.9% 90 ml @ 5 MG/HR 5 mls/hr IV .Q20H KATHERINE Rx#:[id number] Oral 120 260 Output: Urine 400 2450 425 Other: Weight 101.4 kg GENERAL EXAM: Alert, active, pleasant -[place]ian 39-year-old gentleman, on room air, comfortable in no apparent distress. HEAD: Normocephalic. 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 Normal reaction of pupil, equal size. NOSE: Clear with pink turbinates. THROAT: No erythema or exudates. NECK: No masses, no JVD. CHEST: No chest wall deformity. LUNGS: Equal air entry with faint crackles in the posterior bases. CVS: S1 and S2 normal with no audible murmur, regular rhythm. ABDOMEN: Excessive fluid with slight distention. No hepatosplenomegaly, normal bowel sounds, no guarding or rigidity. SPINE: No scoliosis or deformity SKIN: No rashes CENTRAL NERVOUS SYSTEM: No focal deficits, tone is normal in all 4 extremities. EXTREMITIES: There is 2+ peripheral edema. No clubbing, no cyanosis. Pe ripheral pulses are intact. Results - Laboratory Findings CBC and BMP: 05/10/20 05:41 05/12/20 09:12 PT/INR, D-dimer PT 10.7 sec (9.0-12.0) 05/09/20 12:35 INR 1.0 (<1.2) 05/09/20 12:35 Abnormal lab findings: Abnormal Labs 05/09/20 05/09/20 05/09/20 12:35 12:35 20:11 RBC 3.17 L Hgb 10.0 L Hct 30.9 L MCV RDW 17.7 H Chloride 110 H BUN 34 H Creatinine 3.73 H Glucose 125 H POC Glucose (mg/dL) 151 H Hemoglobin A1c Calcium 8.0 L Phosphorus Iron TIBC % Saturation ALT 75 H Alkaline Phosphatase 812 H Total Protein Albumin 2.4 L PTH Intact Urine Protein Urine Glucose (UA) Urine Blood Hyaline Casts Urine Mucus U Random Total Protein 05/10/20 05/10/20 05/10/20 05:41 05:41 05:41 RBC 3.21 L Hgb 10.0 L Hct 32.2 L MCV 100.2 H RDW 17.7 H Chloride 109 H BUN 35 H Creatinine 3.90 H Glucose POC Glucose (mg/dL) Hemoglobin A1c 6.4 H Calcium 8.3 L Phosphorus Iron TIBC % Saturation ALT 62 H Alkaline Phosphatase 720 H Total Protein Albumin 2.5 L PTH Intact Urine Protein Urine Glucose (UA) Urine Blood Hyaline Casts Urine Mucus U Random Total Protein 05/10/20 05/10/20 05/10/20 11:57 12:26 17:09 RBC Hgb Hct MCV RDW Chloride BUN Creatinine Glucose POC Glucose (mg/dL) 123 H 178 H Hemoglobin A1c Calcium Phosphorus Iron TIBC % Saturation ALT Alkaline Phosphatase Total Protein Albumin PTH Intact Urine Protein 2+ H Urine Glucose (UA) Trace H Urine Blood Trace H Hyaline Casts 3 H Urine Mucus Rare H U Random Total Protein 05/10/20 05/10/20 05/11/20 20:20 23:10 06:10 RBC Hgb Hct MCV RDW Chloride 109 H BUN 35 H Creatinine 4.28 H Glucose POC Glucose (mg/dL) 181 H Hemoglobin A1c Calcium 7.8 L Phosphorus Iron 21 L TIBC 222 L % Saturation 9.46 L ALT Alkaline Phosphatase 641 H Total Protein 5.8 L Albumin 2.2 L PTH Intact Urine Protein Urine Glucose (UA) Urine Blood Hyaline Casts Urine Mucus U Random Total Protein 258 H 05/11/20 05/11/20 05/11/20 06:10 11:32 16:48 RBC Hgb Hct MCV RDW Chloride BUN Creatinine Glucose POC Glucose (mg/dL) 131 H Hemoglobin A1c Calcium Phosphorus 4.6 H Iron TIBC % Saturation ALT Alkaline Phosphatase Total Protein Albumin PTH Intact 162.1 H Urine Protein Urine Glucose (UA) Urine Blood Hyaline Casts Urine Mucus U Random Total Protein 05/11/20 05/12/20 05/12/20 20:26 06:29 06:44 RBC Hgb Hct MCV RDW Chloride BUN Creatinine Glucose POC Glucose (mg/dL) 154 H 67 L 60 L Hemoglobin A1c Calcium Phosphorus Iron TIBC % Saturation ALT Alkaline Phosphatase Total Protein Albumin PTH Intact Urine Protein Urine Glucose (UA) Urine Blood Hyaline Casts Urine Mucus U Random Total Protein 05/12/20 05/12/20 07:00 09:12 RBC Hgb Hct MCV RDW Chloride BUN 38 H Creatinine 4.39 H Glucose POC Glucose (mg/dL) 144 H Hemoglobin A1c Calcium 7.9 L Phosphorus Iron TIBC % Saturation ALT 51 H Alkaline Phosphatase 676 H Total Protein 6.2 L Albumin 2.5 L PTH Intact Urine Protein Urine Glucose (UA) Urine Blood Hyaline Casts Urine Mucus U Random Total Protein - Diagnostic Findings Chest x-ray: image reviewed Assessment and Plan Assessment: 1 Acute exacerbation of chronic diastolic congestive heart failure secondary to restrictive cardiomyopathy 2 Anasarca secondary to above 3 Severe pulmonary hypertension 4 Small bilateral pleural effusions 6 Diabetes mellitus, diagnosed at age 18 7 Diabetic retinopathy of the left eye 8 History of myocardial infarction, status post stent placement 2 in 2018 9 Lymphadenopathy the groin undergoing biopsy today 10 Hypertension. Plan: The patient was seen and evaluated by Dr. Lindsey Chest x-ray, echo, labs reviewed We'll obtain an MARK level to rule out sarcoidosis Amyloidosis within the differential Await lymph node biopsy results Continue diuretics Stable from the pulmonary standpoint On room air We will continue to follow and make further recommendations based on his clinical status I, the cosigning physician, performed a history & physical examination of the patient. Lungs sounds faint crackles in the posterior bases. Maintaining good O2 saturations in the 90s on room air. I discussed the assessment and plan of care with my nurse practitioner, Meenakshi Burger. I attest to the above consultation as dictated by her. Time with Patient: Greater than 30
[2020-05-12] MEDS ORDERED: BUPIVACAIN-EPI 0.25%-1:200,000 30 ML VIAL SQ ONE ×2 (14:50)
[2020-05-12] MEDS ORDERED: HYDROcodone/APAP 5-325MG 1 EACH TAB PO PRN (15:08)
--- NOTE | 2020-05-12 15:11 | P.OP ---
Date of Procedure: 05/12/20 Preoperative Diagnosis: Inguinal lymphadenopathy Postoperative Diagnosis: Inguinal lymphadenopathy Procedure(s) Performed: Left inguinal lymph node biopsy, deep Anesthesia: local Surgeon: Krish Cox Pathology: other (Inguinal lymph node) Condition: stable Disposition: floor Indications for Procedure: 39-year-old male with multiple medical comorbidities presented to the hospital. On workup, he is found to have lymphadenopathy of bilateral inguinal region. Request is made for lymph node biopsy for further diagnosis and workup. Patient was explained the risks, benefits and alternatives to the procedure and did provide consent prior to attending the operating suite. Operative Findings: Inguinal lymphadenopathy Description of Procedure: Patient was brought into the operating suite and placed in supine position on the operating table. Sedation was provided by anesthesia. The patient was then prepped and draped in regular sterile fashion. A small incision was made along the palpable inguinal adenopathy of the left side. Dissection was then carried towards the lymph nodes. Dissection was carried to dissect the lymph nodes from surrounding tissue. This was then handed off as fresh specimen. Hemostasis was noted to be maintained at this site. The wound was then closed in layers with 3-0 and 4-0 Vicryl subcuticular sutures. The patient was then awakened in the operating suite and taken to postanesthesia care unit in stable condition with sterile dressing in place.
[2020-05-12 15:25] LABS: Glucose,Whole Blood 96 mg/dL (75-99)
[2020-05-12 16:50] LABS: Glucose,Whole Blood 101 mg/dL (75-99)
--- NOTE | 2020-05-12 17:12 | PN ---
PROGRESS NOTE Patient is seen for followup for acute kidney injury on top of chronic kidney disease. Patient is currently maintained on Lasix drip. He states he is feeling much better as his weight has decreased and he has lost quite a bit of fluid. His weight is down by about 6 kg since admission. Serum creatinine continues to edge upwards. It is at 4.39 today from 3.7 on initial admission. All serologies are negative thus far. 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 He is scheduled for inguinal lymph node biopsy today. Patient's mother is present at bedside and have discussed with them regarding possible need for renal replacement therapy if renal function continues to deteriorate. I have also discussed with them need for kidney biopsy to establish a diagnosis and etiology of nephrotic syndrome and rule out other causes apart from diabetic nephropathy. PHYSICAL EXAMINATION: On examination today, blood pressure was 169/98, heart rate 67 per minute, patient is afebrile. Examination of the heart S1, S2. Examination of the lungs, bilateral breath sounds are heard. Abdomen is soft, nontender. Examination of the lower extremities shows edema 3+ bilaterally. [employer] exam grossly intact. The patient has no vision in the left eye. LABS: Show sodium 138, potassium 3.5, chloride 106, CO2 is 29, BUN 38, creatinine 4.39, albumin 2.5. ASSESSMENT: 1. Acute kidney injury, cardiorenal versus progression of underlying CKD and chronic GN. I will decrease the Lasix. I will discontinue the Lasix drip and switch to IV push Lasix. We also need to proceed with kidney biopsy, however, that can be done later once the inguinal lymph node biopsy is performed. Patient was maintained on aspirin. Therefore, this will need to be discontinued for at least 5 days prior to the procedure. 2. Cardiomyopathy, ejection fraction about 40%. Patient is being followed by Cardiology. There is consideration for restrictive cardiomyopathy. Therefore, suspicion for underlying amyloidosis. However, I do not believe a tissue diagnosis has been made yet. 3. Chronic kidney disease. It appears that previous creatinine was about 3.5 to 4.2 in [place] as well. Etiology is likely diabetic nephropathy versus other underlying GN. 4. Severe volume overload, currently improved. 5. Inguinal lymphadenopathy scheduled for biopsy today. PLAN: DC Lasix drip, switch to IV push Lasix. DC the aspirin in anticipation of kidney biopsy. The patient needs to be off aspirin for at least 5 days before the procedure. This can be done as outpatient if patient is discharged. However, I have advised the patient and his mother that he may end up needing renal replacement therapy to be started this admission if renal function continues to worsen. JUAN C / RONALD: [id number] /
[2020-05-12 20:27] LABS: Glucose,Whole Blood 153 mg/dL (75-99)
[2020-05-12] MEDS: FUROSEMIDE 10 MG/ML 10 ML VIAL IV SCH (21:09)
[2020-05-12] MEDS: INSULIN DETEMIR (LEVEMIR) 100 UNIT/ML SYR SQ SCH (21:10)
--- NOTE | 2020-05-12 21:44 | P.PN ---
Subjective Patient is sitting comfortably V at the bed and he does not appear to be short of breath. He did not have orthopnea PND. However he has normal distention and severely edematous legs He has chronic kidney disease (hypertrophy with possible infiltrative disease lymphadenopathy anasarca pleural and pericardial effusion, pericardial effusion small ascites pulmonary hypertension Sodium 138 potassium 3.5 BUN 38 creatinine 4.39 Blood pressure 160/98 mmHg pulse rate in the 60s afebrile Suggest Continue IV Lasix Consider switching to carvedilol 25 mg twice daily and if needed increasing to 50 mg twice daily If he does have infiltrative cardio myopathy this is simply secondary to chronic kidney disease He is being worked up for nephrotic syndrome and a kidney biopsy is anticipated in the future Today he went for a lymph node biopsy Objective - Vital Signs Vital signs: Vital Signs Temp 97.3 F L 05/12/20 16:00 Pulse 71 05/12/20 20:00 Resp 17 05/12/20 20:00 BP 137/75 05/12/20 20:00 Pulse Ox 100 05/12/20 20:00 Intake & Output 05/12/20 05/12/20 05/13/20 06:59 18:59 06:59 Intake Total 379.167 350 Output Total 2450 678 Balance -2070.833 -328 Weight 101.4 kg Intake: IV 20 350 Furosemide 100 mg In 20 Sodium Chloride 0.9% 90 ml @ 5 MG/HR 5 mls/hr IV .Q20H KATHERINE Rx#:[id number] Intake, IV Titration 99.167 Amount Furosemide 100 mg In 99.167 Sodium Chloride 0.9% 90 ml @ 5 MG/HR 5 mls/hr IV .Q20H KATHERINE Rx#:[id number] Oral 260 Output: Urine 2450 675 Estimated Blood Loss 3 - Labs CBC & Chem 7: 05/10/20 05:41 05/12/20 09:12 Labs: Abnormal Lab Results - Last 24 Hours (Table) 05/12/20 05/12/20 05/12/20 Range/Units 06:29 06:44 07:00 BUN (9-20) mg/dL Creatinine (0.66-1.25) mg/dL POC Glucose (mg/dL) 67 L 60 L 144 H (75-99) mg/dL Calcium (8.4-10.2) mg/dL ALT (4-49) U/L Alkaline Phosphatase (38-126) U/L Total Protein (6.3-8.2) g/dL Albumin (3.5-5.0) g/dL 05/12/20 05/12/20 05/12/20 Range/Units 09:12 16:37 20:25 BUN 38 H (9-20) mg/dL Creatinine 4.39 H (0.66-1.25) mg/dL POC Glucose (mg/dL) 101 H 153 H (75-99) mg/dL Calcium 7.9 L (8.4-10.2) mg/dL ALT 51 H (4-49) U/L Alkaline Phosphatase 676 H (38-126) U/L Total Protein 6.2 L (6.3-8.2) g/dL Albumin 2.5 L (3.5-5.0) g/dL
[2020-05-13] MEDS: carvediloL 12.5 MG TAB PO SCH ×2 (06:21→16:41)
[2020-05-13 06:24] LABS: Glucose,Whole Blood 155 mg/dL (75-99)
[2020-05-13 07:47] LABS: Anisocytosis Slight; Hypochromasia Slight; MCH 30.4 pg (25.0-35.0); MCHC 30.9 g/dL (31.0-37.0); MCV 98.4 fL (80.0-100.0); Macrocytosis Slight; Mean Platelet Volume 9.3; Platelet Count 249 k/uL (150-450); RBC 2.94 m/uL (4.30-5.90); RDW 18.1 % (11.5-15.5); WBC 3.4 k/uL (3.8-10.6)
[2020-05-13 08:03] LABS: Albumin 2.4 g/dL (3.5-5.0); Potassium 3.8 mmol/L (3.5-5.1); Total Bilirubin 0.7 mg/dL (0.2-1.3); Total Protein 6.2 g/dL (6.3-8.2)
[2020-05-13] MEDS: FUROSEMIDE 10 MG/ML 10 ML VIAL IV SCH ×2 (08:05→20:29)
[2020-05-13] MEDS: cloNIDine HCL 0.1 MG TAB PO SCH ×3 (08:06→20:29)
[2020-05-13] MEDS: hydrALAZINE HCL 50 MG TAB PO SCH ×3 (08:06→20:29)
[2020-05-13] MEDS: HEPARIN SODIUM,PORCINE 5,000 UNIT/ML 1 ML VIAL SQ SCH ×2 (08:06→20:23)
[2020-05-13] MEDS: ATORVASTATIN 40 MG TAB PO SCH (08:06)
[2020-05-13] MEDS: amLODIPine 10 MG TAB PO SCH (08:06)
[2020-05-13] MEDS: ISOSORBIDE DINITRATE 10 MG TAB PO SCH ×3 (08:07→20:29)
--- NOTE | 2020-05-13 08:40 | P.PN ---
Subjective Progress Note Date: 05/13/20 Patient seen and examined at bedside. States there is some soreness at the incision site. Denies any significant pain. Objective - Vital Signs Vital signs: Vital Signs Temp 98.1 F 05/13/20 08:00 Pulse 74 05/13/20 08:00 Resp 16 05/13/20 08:00 BP 173/92 05/13/20 08:00 Pulse Ox 100 05/13/20 08:00 Intake & Output 05/12/20 05/13/20 05/13/20 18:59 06:59 18:59 Intake Total 350 Output Total 678 1000 Balance -328 -1000 Weight 100.7 kg Intake: IV 350 Output: Urine 675 1000 Estimated Blood Loss 3 - Constitutional General appearance: Present: cooperative - Gastrointestinal Gastrointestinal Comment(s): Left groin incision site clean, dry and intact with surgical dressing in place - Musculoskeletal Musculoskeletal: Present: generalized weakness - Psychiatric Psychiatric: Present: A&O x's 3 - Labs CBC & Chem 7: 05/13/20 07:14 05/13/20 07:14 Labs: Abnormal Lab Results - Last 24 Hours (Table) 05/12/20 05/12/20 05/12/20 Range/Units 09:12 16:37 20:25 WBC (3.8-10.6) k/uL RBC (4.30-5.90) m/uL Hgb (13.0-17.5) gm/dL Hct (39.0-53.0) % MCHC (31.0-37.0) g/dL RDW (11.5-15.5) % BUN 38 H (9-20) mg/dL Creatinine 4.39 H (0.66-1.25) mg/dL Glucose (74-99) mg/dL POC Glucose (mg/dL) 101 H 153 H (75-99) mg/dL Calcium 7.9 L (8.4-10.2) mg/dL ALT 51 H (4-49) U/L Alkaline Phosphatase 676 H (38-126) U/L Total Protein 6.2 L (6.3-8.2) g/dL Albumin 2.5 L (3.5-5.0) g/dL 05/13/20 05/13/20 05/13/20 Range/Units 06:22 07:14 07:14 WBC 3.4 L (3.8-10.6) k/uL RBC 2.94 L (4.30-5.90) m/uL Hgb 9.0 L (13.0-17.5) gm/dL Hct 29.0 L (39.0-53.0) % MCHC 30.9 L (31.0-37.0) g/dL RDW 18.1 H (11.5-15.5) % BUN 41 H (9-20) mg/dL Creatinine 4.42 H (0.66-1.25) mg/dL Glucose 129 H (74-99) mg/dL POC Glucose (mg/dL) 155 H (75-99) mg/dL Calcium 8.0 L (8.4-10.2) mg/dL ALT (4-49) U/L Alkaline Phosphatase 643 H (38-126) U/L Total Protein 6.2 L (6.3-8.2) g/dL Albumin 2.4 L (3.5-5.0) g/dL Assessment and Plan (1) Lymphadenopathy Narrative/Plan: Patient is postoperative day 1 from left inguinal lymph node biopsy - Continue pain control as necessary - Await pathology results - Medical management Current Visit: Yes Status: Acute Code(s): R59.1 - GENERALIZED ENLARGED LYMPH NODES SNOMED Code(s): 88529163
--- NOTE | 2020-05-13 12:01 | P.PN ---
Subjective Progress Note Date: 05/13/20 Principal diagnosis: Acute exacerbation of chronic diastolic congestive heart failure secondary to restrictive cardiomyopathy This is a very pleasant 39-year-old gentleman who was recently moved to [place] from [facility]. He has a history of coronary artery disease with previous stent placement 2 in 2018, hyperlipidemia, hypertension, insulin-dependent diabetes mellitus, type I diagnosed at age 18, diabetic retinopathy of the left eye since 2017. He also states he had a history of cardiac arrest prior to foot surgery. He has restrictive cardiomyopathy. He presented to our emergency room on the of this month with a week of increasing lower extremity edema. Chest x-ray revealed moderate enlargement of the cardiac pericardiac silhouette. Pulmonary vascular congestion. Trace pleural effusions. Echocardiogram revealed severe concentric left ventricular hypertrophy. Left ventricular cabrera have a break groundglass appearance. Consider amyloidosis. Mildly impaired left ventricular systolic function with ejection fraction 45-50%. Global wall thickness of the right ventricle mildly enlarged. Moderate mitral regurgitation. Severe tricuspid regurgitation. Severe pulmonary hypertension. RVSP 78.98 mmHg. Small generalized pericardial effusion. Large pleural effusion. Renal ultrasound revealed no hydronephrosis. Venous Dopplers of the lower extremity revealed no DVT. VQ scan revealed no pulmonary emboli. Computed tomography scan of the abdomen and pelvis revealed bilateral inguinal and suspected femoral lymphadenopathy. There appears to be diffuse anasarca as well as increased density within the mesenteric suggestive of mesenteric edema and a small amount of ascites. Bilateral pleural effusions. We're consulted today. The patient is seen on the selective care unit. Awake and alert in no acute distress. He is a very good historian of his past medical history. He has had some shortness of breath but is maintaining good O2 saturation in the upper 90s on room air. He's been afebrile. Sodium 138. Potassium 3.5. Creatinine 4.39. Millard virus not detected. Hepatitis screen negative. P- ANCA, c-ANCA negative. JOHANA negative. He is currently on Lasix 60 mg every 12 hours. The patient is seen today 05/13/2020 in follow-up on the selective care unit. He is awake and alert in no acute distress. No shortness of breath, cough or congestion. No chest pain, palpitations lightheadedness or dizziness. He is maintaining good O2 saturations up to 100% on room air. He's afebrile. Slightly hypertensive. White count 3.4. Hemoglobin 9.0. Sodium 138. Potassium 3.8. Creatinine 4.42. He remains on Lasix 60 mg every 12 hours. Lower extremity edema slightly improved. He remains in a negative balance. Weight is down 1 kg. He did undergo a left inguinal lymph node biopsy yesterday. Pathology pending. Objective - Vital Signs Vital signs: Vital Signs Temp 98.1 F 05/13/20 08:00 Pulse 74 05/13/20 08:00 Resp 16 05/13/20 11:18 BP 173/92 05/13/20 08:00 Pulse Ox 100 05/13/20 08:00 Intake & Output 05/12/20 05/13/20 05/13/20 18:59 06:59 18:59 Intake Total 350 236 Output Total 678 1000 Balance -328 -1000 236 Weight 100.7 kg Intake: IV 350 Oral 236 Output: Urine 675 1000 Estimated Blood Loss 3 - Exam GENERAL EXAM: Alert, active, pleasant -Beninese 39-year-old gentleman, on room air, comfortable in no apparent distress. HEAD: Normocephalic. 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 Normal reaction of pupil, equal size. NOSE: Clear with pink turbinates. THROAT: No erythema or exudates. NECK: No masses, no JVD. CHEST: No chest wall deformity. LUNGS: Equal air entry with faint crackles in the posterior bases. CVS: S1 and S2 normal with no audible murmur, regular rhythm. ABDOMEN: Excessive fluid with slight distention. No hepatosplenomegaly, normal bowel sounds, no guarding or rigidity. SPINE: No scoliosis or deformity SKIN: No rashes CENTRAL NERVOUS SYSTEM: No focal deficits, tone is normal in all 4 extremities. EXTREMITIES: There is 2+ peripheral edema. No clubbing, no cyanosis. Peripheral pulses are intact. - Labs CBC & Chem 7: 05/13/20 07:14 05/13/20 07:14 Labs: Abnormal Lab Results - Last 24 Hours (Table) 05/12/20 05/12/20 05/13/20 Range/Units 16:37 20:25 06:22 WBC (3.8-10.6) k/uL RBC (4.30-5.90) m/uL Hgb (13.0-17.5) gm/dL Hct (39.0-53.0) % MCHC (31.0-37.0) g/dL RDW (11.5-15.5) % BUN (9-20) mg/dL Creatinine (0.66-1.25) mg/dL Glucose (74-99) mg/dL POC Glucose (mg/dL) 101 H 153 H 155 H (75-99) mg/dL Calcium (8.4-10.2) mg/dL Alkaline Phosphatase (38-126) U/L Total Protein (6.3-8.2) g/dL Albumin (3.5-5.0) g/dL 05/13/20 05/13/20 Range/Units 07:14 07:14 WBC 3.4 L (3.8-10.6) k/uL RBC 2.94 L (4.30-5.90) m/uL Hgb 9.0 L (13.0-17.5) gm/dL Hct 29.0 L (39.0-53.0) % MCHC 30.9 L (31.0-37.0) g/dL RDW 18.1 H (11.5-15.5) % BUN 41 H (9-20) mg/dL Creatinine 4.42 H (0.66-1.25) mg/dL Glucose 129 H (74-99) mg/dL POC Glucose (mg/dL) (75-99) mg/dL Calcium 8.0 L (8.4-10.2) mg/dL Alkaline Phosphatase 643 H (38-126) U/L Total Protein 6.2 L (6.3-8.2) g/dL Albumin 2.4 L (3.5-5.0) g/dL Assessment and Plan Assessment: 1 Acute exacerbation of chronic diastolic congestive heart failure secondary to restrictive cardiomyopathy 2 Anasarca secondary to above 3 Severe pulmonary hypertension 4 Small bilateral pleural effusions 6 Diabetes mellitus, diagnosed at age 18 7 Diabetic retinopathy of the left eye 8 History of myocardial infarction, status post stent placement 2 in 2018 9 Lymphadenopathy the groin, status post deep left inguinal lymph node biopsy, pathology pending 10 Hypertension. Plan: The patient was seen and evaluated by Dr. Rosalia Shin from the pulmonary standpoint MARK level pending Amyloidosis within the differential Await lymph node biopsy results Continue diuretics We will continue to follow and make further recommendations based on his clinical status I, the cosigning physician, performed a history & physical examination of the p atient. Lungs sounds faint crackles in the posterior bases. Maintaining good O2 saturations in the 90s on room air. I discussed the assessment and plan of care with my nurse practitioner, Meenakshi Burger. I attest to the above note as dictated by her.
--- NOTE | 2020-05-13 12:29 | PN ---
PROGRESS NOTE The patient is seen for followup for chronic kidney disease and nephrotic range proteinuria. The patient had his inguinal lymph node biopsy done yesterday and result is pending. We could not perform the kidney biopsy as the patient was on aspirin. He needs to be off aspirin for five days before the kidney biopsy can be performed. Lasix drip was discontinued and currently patient is maintained on IV Lasix 60 mg q.12 hours. He continues to have good urine output. His weight is further decreased from yesterday. PHYSICAL EXAMINATION: On examination today, blood pressure was 173/92, heart rate 74 per minute, he is afebrile. Examination of the heart S1, S2. Examination of the lungs, bilateral breath sounds are heard. Abdomen is soft, nontender. Examination of lower extremities shows edema 3+ bilaterally. 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 LAB: Show sodium 138, potassium 3.8, chloride 106, BUN 41, creatinine 4.42, hemoglobin 9.0 g/dL. ASSESSMENT: 1. Chronic kidney disease with nephrotic range proteinuria, etiology is either diabetic nephropathy or other underlying glomerulonephritis. So far serologies are all negative. Awaiting results of the lymph node biopsy. 2. Cardiomyopathy, ejection fraction 40%. 3. Severe volume overload status post Lasix drip, currently improved. 4. Inguinal lymphadenopathy status post biopsy. 5. 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 Awaiting kidney biopsy to be performed once patient has been off aspirin for five days. I have also discussed possible renal replacement therapy with the patient if renal function deteriorates further. I will continue with the IV Lasix at the current dose for now. Repeat labs in a.m. MMODL / IJN: [id number] /
[2020-05-13 12:43] LABS: Glucose,Whole Blood 124 mg/dL (75-99)
--- NOTE | 2020-05-13 14:45 | P.PN ---
Subjective Progress Note Date: 05/13/20 59-year-old start seen in the office recently moving from [place] to be close to his mother. Apparently was diagnosed with cardiomyopathy ischemic type with angiogram and angioplasty back in 2018 history of type 2 diabetes on medication and history of anasarca who was bothered by the severity of the swelling the edema with large swelling in the scrotum. Was seen on week early started on diuretics without any improvement patient had gained 5 pounds within 1 week despite being on furosemide. The blood pressure remained extremely high at the time being on 3 medication at the time with no respond. Patient was sent to the emergency department seen and evaluated found to be in acute kidney failure with severe anasarca and congestive heart failure with slight anemia as well with significant abnormal liver function test. Troponin was negative but his BNP was 69,000. Chest x-ray showed moderate enlargement of the cardiac silhouette correlate with pulmonary vascular congestion and trace of pulmonary edema was started on Lasix a drip admitted to the hospital will be seen cardiology and nephrology will continue to treat his anasarca. 05/10: Patient remains on the cardiac stepdown unit. He states he feels a little bit better from yesterday. He is scheduled to see nephrology and cardiology today. Ultrasound bilateral lower extremities negative for DVT. VQ scan echocardiogram are pending. Plan is to obtain lymph node biopsy. Discussed case with Dr. Hebert and she suggested undergoing CAT scan of the abdomen and pelvis first. She will be ruling out nephrotic syndrome. Previous lab work will be obtained. The patient states he was first diagnosed with diabetes at age 18 and was placed on insulin and Glucophage. 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 Cataract surgery on the right and retinal surgeries. Patient is afebrile, heart rate 72, blood pressure 185/96, pulse ox 97% on room air. Repeat blood work revealed WBC 4.3, hemoglobin 10, platelet count 272. BUN 35 and creatinine 3.90. Chloride 109, potassium 3.6, sodium 140. CO2 26. Blood sugars are running between 84 and 151. Total bilirubin 0.9, AST 40, ALT 62, alkaline phosphatase 720. Echocardiogram reveals EF of 45-50% with moderate mitral regurgitation, severe tricuspid regurgitation, severe pulmonary hypertension, moderate pulmonic regurgitation, large pleural effusion, small generalized pericardial effusion. Hepatitis panel negative. Coronavirus PCR not detected. 05/11: VQ scan was normal. CAT scan of the abdomen and pelvis without contrast revealed bilateral inguinal and suspected from oral lymphadenopathy. There does appear to be diffuse anasarca as well as increased density within the mesentery suggestive of mesenteric edema and a small amount of ascites which limits the exam. Consider post contrast exam for assessment of adenopathy. Bilateral pleural effusions. Gastric distention. Chronic cystitis. Consult has been added for Dr. Cox for biopsy of enlarged lymph node and this has been scheduled for tomorrow, patient has been continued on a Lasix drip. He denies any significant improvement continues to have lower extremity edema. He has been afebrile, heart rate 78, blood pressure 156/80, pulse ox 90% on room air. Repeat blood work reveals worsening renal function with BUN 35 and creatinine 4.28. Alkaline phosphatase 641. Reviewed laboratory studies from [facility] in [facility]. Patient had a pericardial biopsy that showed mesothelial lined fibrous tissue with mild nonspecific chronic inflammation. No evidence of microorganisms. Creatinine at that facility was running 3.4-4.2. 05/12: Patient remains on the cardiac stepdown unit. He is scheduled for biopsy at 1:[address] Cox. Discussed in detail patient's results with the patient and his mother and discussed possible need for hemodialysis. He has been afebrile, heart rate 76, blood pressure 165/88, pulse ox 98% on room air. Repeat blood work revealed BUN 38 and creatinine 4.39. Blood sugars are running between 60 and 154. AST 51, ALT 51, alkaline phosphatase 676. Consult has been added for Dr. Lindsey regarding severe pulmonary hypertension. Patient is continued on Lasix drip. Nephrology is following with plan for kidney biopsy down the road. 05/13: Patient underwent lymph node biopsy yesterday, from the groin, pending results, patient scheduled to have kidney biopsy on Friday, no plans for dialysis at this time, edema is much better, however he still is edematous all over, patient denies any chest pain or palpitations,no new dyspnea, hemoglobin is at 9.0, creatinine at 4.2 BUN of 41 potassium at 3.8, sugars are acceptable, alkaline phosphatase 643, withnormal ALT and AST, no cultures from any fluids, vitals arestable, with pulse ox 98% on room air, blood pressure ranges 155-170 systolic, no tachypnea tachycardia no melena and hematochezia. Review of Systems CONSTITUTIONAL: Well-developed no shortness of breath no cough or wheezes. No fever. No chills. EYES: No icterus sclerae, no conjunctivitis. EARS, NOSE, MOUTH, THROAT, and FACE: No sore throat, lymphadenopathy, carotid bruits or deformity. RESPIRATORY: Positive shortness of breath. CARDIOVASCULAR: Has a PND orthopnea and angina with significant anasarca and nakita ma. GASTROINTESTINAL: No Abd pain, Nausea or vomiting, no Diarrhea or constipation, No GI Bleed, no distention or masses. GENITOURINARY: Negative for Hematuria or UTI, no kidney stones. Significant s welling in the scrotum fluid retention. INTEGUMENT/BREAST: Negative for any muscular injury with mild osteoarthritis.. Significant edema lower extremity. HEMATOLOGIC/LYMPHATIC: Negative for bleed or purpura. MUSCULOSKELTAL: Negative for Myalgia or arthralgia. NEURLOGICAL: No LOC, Sz or syncope, blurred vision dizziness or abnormality. BEHAVIORAL/PSYCH: Negative. ENDOCRINE: Negative. Objective - Vital Signs Vital signs: Vital Signs Temp 98.1 F 05/13/20 08:00 Pulse 71 05/13/20 12:00 Resp 16 05/13/20 12:00 BP 155/82 05/13/20 12:00 Pulse Ox 98 05/13/20 12:00 Intake & Output 05/12/20 05/13/20 05/13/20 18:59 06:59 18:59 Intake Total 350 236 Output Total 678 1000 Balance -328 -1000 236 Weight 100.7 kg Intake: IV 350 Oral 236 Output: Urine 675 1000 Estimated Blood Loss 3 - Constitutional General appearance: Present: cooperative, no acute distress - EENT Eyes: Present: EOMI, PERRLA, dentition normal ENT: Present: NA/AT, normal oropharynx - Neck Neck: Present: normal ROM - Respiratory Respiratory: bilateral: CTA, diminished - Cardiovascular Rhythm: regular Heart sounds: normal: S1, S2 Abnormal Heart Sounds: Present: systolic murmur - Peripheral edema leg Peripheral Edema: bilateral: 3+ - Gastrointestinal General gastrointestinal: Present: normal bowel sounds, soft - Integumentary Integumentary: Present: normal, normal turgor - Neurologic Neurologic: Present: CNII-XII intact - Psychiatric Psychiatric: Present: A&O x's 3 - Labs CBC & Chem 7: 05/13/20 07:14 05/13/20 07:14 Labs: Abnormal Lab Results - Last 24 Hours (Table) 05/12/20 05/12/20 05/13/20 Range/Units 16:37 20:25 06:22 WBC (3.8-10.6) k/uL RBC (4.30-5.90) m/uL Hgb (13.0-17.5) gm/dL Hct (39.0-53.0) % MCHC (31.0-37.0) g/dL RDW (11.5-15.5) % BUN (9-20) mg/dL Creatinine (0.66-1.25) mg/dL Glucose (74-99) mg/dL POC Glucose (mg/dL) 101 H 153 H 155 H (75-99) mg/dL Calcium (8.4-10.2) mg/dL Alkaline Phosphatase (38-126) U/L Total Protein (6.3-8.2) g/dL Albumin (3.5-5.0) g/dL 05/13/20 05/13/20 Range/Units 07:14 07:14 WBC 3.4 L (3.8-10.6) k/uL RBC 2.94 L (4.30-5.90) m/uL Hgb 9.0 L (13.0-17.5) gm/dL Hct 29.0 L (39.0-53.0) % MCHC 30.9 L (31.0-37.0) g/dL RDW 18.1 H (11.5-15.5) % BUN 41 H (9-20) mg/dL Creatinine 4.42 H (0.66-1.25) mg/dL Glucose 129 H (74-99) mg/dL POC Glucose (mg/dL) (75-99) mg/dL Calcium 8.0 L (8.4-10.2) mg/dL Alkaline Phosphatase 643 H (38-126) U/L Total Protein 6.2 L (6.3-8.2) g/dL Albumin 2.4 L (3.5-5.0) g/dL Assessment and Plan Plan: ssessment and Plan 1. Acute on chronic diastolic heart failure. Continue Lasix drip, monitor franklyn ly weight, electrolytes and renal function. Consults with cardiology and nephrology appreciated. Obtained previous reports from his physician in [place]. 2 restrictive cardiomyopathy, amyloidosis with generalized anasarca. Continue diuresing. 3 acute kidney injury with chronic kidney disease stage IV. Normal ultrasound of the kidneys. Obtained previous lab work from [place]. Nephrology consult a ppreciated. kidney biopsy thisJuly 29 no plans f for hemodialysis 4 advance CAD: Post angioplasty and stent placement in 2018 patient was seen cardiology and apparently had more blockage with no angiogram lately. 5 acute anemia due to chronic kidney disease 6 abnormal liver function test. Hepatitis panel negative. 7 hyperlipidemia: Has been on atorvastatin 40 mg a day. 8 advanced noncontrolled hypertension. Continue Norvasc 10 mg daily, Catapres scheduled 3 times daily and as needed, hydralazine 100 mg 3 times daily, labetalol 20 mg twice daily. 9 type 2 diabetes: On insulin, patient remain on Lantus and Humalog continue Accu-Chek with sliding scales coverage. A1c is 6.4. 10 Valvular heart disease with moderate mitral regurgitation, severe tricuspid regurgitation, moderate pulmonary regurgitation. 11 severe pulmonary hypertension. 12 GERD/GI prophylaxis: Continue pantoprazole. 13 DVT prophylaxis: Patient will be on heparin 5000 units subcutaneous twice a day. 14 COVID-19 infection not present. CODE STATUS: Full code.
[2020-05-13 17:32] LABS: Glucose,Whole Blood 149 mg/dL (75-99)
[2020-05-13 20:22] LABS: Glucose,Whole Blood 158 mg/dL (75-99)
[2020-05-13] MEDS: INSULIN DETEMIR (LEVEMIR) 100 UNIT/ML SYR SQ SCH (20:29)
[2020-05-14] MEDS: carvediloL 12.5 MG TAB PO SCH ×2 (05:55→16:41)
[2020-05-14 05:58] LABS: Glucose,Whole Blood 114 mg/dL (75-99)
[2020-05-14 07:03] LABS: Anisocytosis Slight; HCT 28.3 % (39.0-53.0); HGB 9.1 gm/dL (13.0-17.5); Hypochromasia Slight; MCHC 32.2 g/dL (31.0-37.0); MCV 99.3 fL (80.0-100.0); Macrocytosis Slight; Mean Platelet Volume 9.2; Platelet Count 215 k/uL (150-450); RBC 2.85 m/uL (4.30-5.90); WBC 3.4 k/uL (3.8-10.6)
[2020-05-14 07:17] LABS: Albumin 2.3 g/dL (3.5-5.0); Calcium 7.9 mg/dL (8.4-10.2); Potassium 3.9 mmol/L (3.5-5.1); Total Bilirubin 0.9 mg/dL (0.2-1.3)
[2020-05-14] MEDS: cloNIDine HCL 0.1 MG TAB PO SCH (08:07)
[2020-05-14] MEDS: hydrALAZINE HCL 50 MG TAB PO SCH ×3 (08:08→19:47)
[2020-05-14] MEDS: ATORVASTATIN 40 MG TAB PO SCH (08:08)
[2020-05-14] MEDS: ISOSORBIDE DINITRATE 10 MG TAB PO SCH ×3 (08:08→21:08)
[2020-05-14] MEDS: FUROSEMIDE 10 MG/ML 10 ML VIAL IV SCH ×2 (08:08→19:47)
[2020-05-14] MEDS: HEPARIN SODIUM,PORCINE 5,000 UNIT/ML 1 ML VIAL SQ SCH ×2 (08:08→20:30)
--- NOTE | 2020-05-14 10:57 | PN ---
PROGRESS NOTE Patient is seen for followup for chronic kidney disease and acute kidney injury with nephrotic syndrome and severe volume overload and lower extremity edema. The patient was initially maintained on Lasix drip which is now discontinued. His serum creatinine seems to be slowly increasing. He is currently maintained on Lasix 60 mg q.12 hours. Overall volume status is significantly better. The patient has about 11 g of proteinuria and he is scheduled for kidney biopsy next week, hopefully on May 16 or as he had to be off of aspirin for 5 days. The patient also has inguinal lymphadenopathy for which he had an inguinal lymph node biopsy performed on Friday, results of which are pending. I have discussed renal replacement therapy with the patient, however, at this time there is no indication to start dialysis. PHYSICAL EXAMINATION: On examination, blood pressure is 163/86, heart rate 74 per minute, he is afebrile. Examination shows edema 3+ bilaterally. Abdomen is soft, nontender. 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 LAB: Show sodium 136, potassium 3.9, chloride 105, BUN 47, creatinine 4.63, hemoglobin 9.1 g/dL. ASSESSMENT: 1. Acute kidney injury on top of chronic kidney disease. Diabetic nephropathy versus other underlying glomerulonephritis. All serologies are negative. Patient did have a strong history of use of NSAIDs. Currently awaiting kidney biopsy. 2. Inguinal lymphadenopathy status post biopsy. 3. Advanced renal failure currently does not need renal replacement therapy. However, if renal function continues to worsen, patient will end up needing dialysis soon. 4. Hypertension, partly volume sensitive, improved although still elevated. 5. Cardiomyopathy with evidence of restrictive cardiomyopathy with concern for possible amyloidosis. PLAN: Continue with the IV Lasix for now. Await kidney biopsy. MMODL / IJN: [id number] /
[2020-05-14 12:23] LABS: Glucose,Whole Blood 117 mg/dL (75-99)
[2020-05-14] MEDS: amLODIPine 10 MG TAB PO SCH (12:31)
--- NOTE | 2020-05-14 12:53 | P.PN ---
Subjective Progress Note Date: 05/14/20 59-year-old start seen in the office recently moving from [place] to be close to his mother. Apparently was diagnosed with cardiomyopathy ischemic type with angiogram and angioplasty back in 2018 history of type 2 diabetes on medication and history of anasarca who was bothered by the severity of the swelling the edema with large swelling in the scrotum. Was seen on week early started on diuretics without any improvement patient had gained 5 pounds within 1 week despite being on furosemide. The blood pressure remained extremely high at the time being on 3 medication at the time with no respond. Patient was sent to the emergency department seen and evaluated found to be in acute kidney failure with severe anasarca and congestive heart failure with slight anemia as well with significant abnormal liver function test. Troponin was negative but his BNP was 69,000. Chest x-ray showed moderate enlargement of the cardiac silhouette correlate with pulmonary vascular congestion and trace of pulmonary edema was started on Lasix a drip admitted to the hospital will be seen cardiology and nephrology will continue to treat his anasarca. 05/10: Patient remains on the cardiac stepdown unit. He states he feels a little bit better from yesterday. He is scheduled to see nephrology and cardiology today. Ultrasound bilateral lower extremities negative for DVT. VQ scan echocardiogram are pending. Plan is to obtain lymph node biopsy. Discussed case with Dr. Hebert and she suggested undergoing CAT scan of the abdomen and pelvis first. She will be ruling out nephrotic syndrome. Previous lab work will be obtained. The patient states he was first diagnosed with diabetes at age 18 and was placed on insulin and Glucophage. 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 Cataract surgery on the right and retinal surgeries. Patient is afebrile, heart rate 72, blood pressure 185/96, pulse ox 97% on room air. Repeat blood work revealed WBC 4.3, hemoglobin 10, platelet count 272. BUN 35 and creatinine 3.90. Chloride 109, potassium 3.6, sodium 140. CO2 26. Blood sugars are running between 84 and 151. Total bilirubin 0.9, AST 40, ALT 62, alkaline phosphatase 720. Echocardiogram reveals EF of 45-50% with moderate mitral regurgitation, severe tricuspid regurgitation, severe pulmonary hypertension, moderate pulmonic regurgitation, large pleural effusion, small generalized pericardial effusion. Hepatitis panel negative. Coronavirus PCR not detected. 05/11: VQ scan was normal. CAT scan of the abdomen and pelvis without contrast revealed bilateral inguinal and suspected from oral lymphadenopathy. There does appear to be diffuse anasarca as well as increased density within the mesentery suggestive of mesenteric edema and a small amount of ascites which limits the exam. Consider post contrast exam for assessment of adenopathy. Bilateral pleural effusions. Gastric distention. Chronic cystitis. Consult has been added for Dr. Cox for biopsy of enlarged lymph node and this has been scheduled for tomorrow, patient has been continued on a Lasix drip. He denies any significant improvement continues to have lower extremity edema. He has been afebrile, heart rate 78, blood pressure 156/80, pulse ox 90% on room air. Repeat blood work reveals worsening renal function with BUN 35 and creatinine 4.28. Alkaline phosphatase 641. Reviewed laboratory studies from [facility] in [facility] [place] [facility]. Patient had a pericardial biopsy that showed mesothelial lined fibrous tissue with mild nonspecific chronic inflammation. No evidence of microorganisms. Creatinine at that facility was running 3.4-4.2. 05/12: Patient remains on the cardiac stepdown unit. He is scheduled for biopsy at 1:[address] Cox. Discussed in detail patient's results with the patient and his mother and discussed possible need for hemodialysis. He has been afebrile, heart rate 76, blood pressure 165/88, pulse ox 98% on room air. Repeat blood work revealed BUN 38 and creatinine 4.39. Blood sugars are running between 60 and 154. AST 51, ALT 51, alkaline phosphatase 676. Consult has been added for Dr. Lindsey regarding severe pulmonary hypertension. Patient is continued on Lasix drip. Nephrology is following with plan for kidney biopsy down the road. 05/13: Patient underwent lymph node biopsy yesterday, from the groin, pending results, patient scheduled to have kidney biopsy on Friday, no plans for dialysis at this time, edema is much better, however he still is edematous all over, patient denies any chest pain or palpitations,no new dyspnea, hemoglobin is at 9.0, creatinine at 4.2 BUN of 41 potassium at 3.8, sugars are acceptable, alkaline phosphatase 643, withnormal ALT and AST, no cultures from any fluids, vitals arestable, with pulse ox 98% on room air, blood pressure ranges 155-170 systolic, no tachypnea tachycardia no melena and hematochezia. 05/14: Patient is without any new complaints today, still has edema, no shortness of breath at this year, no dysphagia, no chest pain or palpitations, vitals are stable, lymph node biopsy inguinal area still pending, patient is to have kidney biopsy as scheduled Friday, creatinine 4.6 BUN 47 potassium 3.9 hemoglobin 9 .1 and double basic count 3.4, JOHANA negative, c-ANCA p-ANCA negative, transaminase noted slightly to be elevated, I'll: [id number], ALT 51 AST 64 Review of Systems CONSTITUTIONAL: Well-developed no shortness of breath no cough or wheezes. No fever. No chills. EYES: No icterus sclerae, no conjunctivitis. EARS, NOSE, MOUTH, THROAT, and FACE: No sore throat, lymphadenopathy, carotid bruits or deformity. RESPIRATORY: Positive shortness of breath. CARDIOVASCULAR: Has a PND orthopnea and angina with significant anasarca and edema. GASTROINTESTINAL: No Abd pain, Nausea or vomiting, no Diarrhea or constipation, No GI Bleed, no distention or masses. GENITOURINARY: Negative for Hematuria or UTI, no kidney stones. Significant swelling in the scrotum fluid retention. INTEGUMENT/BREAST: Negative for any muscular injury with mild osteoarthritis.. Significant edema lower extremity. HEMATOLOGIC/LYMPHATIC: Negative for bleed or purpura. MUSCULOSKELTAL: Negative for Myalgia or arthralgia. NEURLOGICAL: No LOC, Sz or syncope, blurred vision dizziness or abnormality. BEHAVIORAL/PSYCH: Negative. ENDOCRINE: Negative. Objective - Vital Signs Vital signs: Vital Signs Temp 97.4 F L 05/13/20 20:00 Pulse 64 05/14/20 12:00 Resp 16 05/14/20 12:00 BP 159/81 05/14/20 12:00 Pulse Ox 97 05/14/20 12:00 Intake & Output 05/13/20 05/14/20 05/14/20 18:59 06:59 18:59 Intake Total 458 236 Output Total 300 725 Balance 158 -725 236 Weight 100.5 kg Intake: Oral 458 236 Output: Urine 300 725 Other: # Voids 3 1 # Bowel Movements 1 - Constitutional General appearance: Present: average body habitus, cooperative, no acute distress - EENT Eyes: Present: EOMI, PERRLA, dentition normal, normal appearance ENT: Present: NA/AT, normal oropharynx - Neck Neck: Present: normal ROM - Respiratory Respiratory: bilateral: CTA, negative: diminished, dullness, rales - Cardiovascular Rhythm: regular Heart sounds: normal: S1, S2 Abnormal Heart Sounds: Absent: systolic murmur, diastolic murmur, rub, S3 Gallop, S4 Gallop, click, other - Gastrointestinal General gastrointestinal: Present: normal bowel sounds, soft - Integumentary Integumentary: Present: normal - Neurologic Neurologic: Present: CNII-XII intact - Musculoskeletal Musculoskeletal: Present: gait normal, strength equal bilaterally - Psychiatric Psychiatric: Present: A&O x's 3, appropriate affect, intact judgment & insight - Labs CBC & Chem 7: 05/14/20 06:16 05/14/20 06:16 Labs: Abnormal Lab Results - Last 24 Hours (Table) 05/13/20 05/13/20 05/14/20 Range/Units 17:30 20:18 05:57 WBC (3.8-10.6) k/uL RBC (4.30-5.90) m/uL Hgb (13.0-17.5) gm/dL Hct (39.0-53.0) % RDW (11.5-15.5) % Sodium (137-145) mmol/L BUN (9-20) mg/dL Creatinine (0.66-1.25) mg/dL POC Glucose (mg/dL) 149 H 158 H 114 H (75-99) mg/dL Calcium (8.4-10.2) mg/dL AST (17-59) U/L ALT (4-49) U/L Alkaline Phosphatase (38-126) U/L Total Protein (6.3-8.2) g/dL Albumin (3.5-5.0) g/dL 05/14/20 05/14/20 05/14/20 Range/Units 06:16 06:16 12:22 WBC 3.4 L (3.8-10.6) k/uL RBC 2.85 L (4.30-5.90) m/uL Hgb 9.1 L (13.0-17.5) gm/dL Hct 28.3 L (39.0-53.0) % RDW 18.0 H (11.5-15.5) % Sodium 136 L (137-145) mmol/L BUN 47 H (9-20) mg/dL Creatinine 4.63 H (0.66-1.25) mg/dL POC Glucose (mg/dL) 117 H (75-99) mg/dL Calcium 7.9 L (8.4-10.2) mg/dL AST 64 H (17-59) U/L ALT 51 H (4-49) U/L Alkaline Phosphatase 669 H (38-126) U/L Total Protein 6.0 L (6.3-8.2) g/dL Albumin 2.3 L (3.5-5.0) g/dL Assessment and Plan Plan: ssessment and Plan 1. Acute on chronic diastolic heart failure. Continue Lasix drip, monitor daily weight, electrolytes and renal function. Consults with cardiology and nephrology appreciated. Obtained previous reports from his physician in [place]. 2 restrictive cardiomyopathy, amyloidosis with generalized anasarca. Continue diuresing. Kidney biopsy this coming May 17 per report 3 acute kidney injury with chronic kidney disease stage IV. Normal ultrasound o f the kidneys. Obtained previous lab work from [place]. Nephrology consult appreciated. kidney biopsy thisly no plans f for hemodialysis 4 advance CAD: Post angioplasty and stent placement in 2017 patient was seen cardiology and apparently had more blockage with no angiogram lately. 5 acute anemia due to chronic kidney disease 6 abnormal liver function test. Hepatitis panel negative. 7 hyperlipidemia: Has been on atorvastatin 40 mg a day. 8 advanced noncontrolled hypertension. Continue Norvasc 10 mg daily, Catapres scheduled 3 times daily and as needed, hydralazine 100 mg 3 times daily, labetalol 20 mg twice daily. 9 type 2 diabetes: On insulin, patient remain on Lantus and Humalog continue Accu-Chek with sliding scales coverage. A1c is 6.4. 10 Valvular heart disease with moderate mitral regurgitation, severe tricuspid regurgitation, moderate pulmonary regurgitation. 11 severe pulmonary hypertension. 12 GERD/GI prophylaxis: Continue pantoprazole. 13 DVT prophylaxis: Patient will be on heparin 5000 units subcutaneous twice a day. 14 COVID-19 infection not present. CODE STATUS: Full code.
--- NOTE | 2020-05-14 13:51 | P.PN ---
Subjective Progress Note Date: 05/14/20 The patient is a pleasant 39-year-old male with extensive past medical history, including coronary artery disease status post stenting in 2018, type 1 diabetes mellitus, and restrictive cardiomyopathy. He was initially admitted for increased shortness of breath. Today the patient states he is slowly improving. He feels as though his lower extremity edema is less than the day before. He denies any shortness of breath. No orthopnea. He denies any palpitations, dizziness, or lightheadedness. GENERAL: This is a her 39-year-old male in no apparent distress at the time of my examination. HEENT: Head is atraumatic, normocephalic. Pupils are equal, round. Left eye cloudy. Mucous membranes of the mouth are moist. Neck is supple. Positive jugular venous distention. No carotid bruit is heard. LUNGS: Diminished to auscultation. No wheezes, rhonchi, or crackles. No chest wall tenderness is noted on palpation or with deep breathing. HEART: Regular rate and rhythm without murmurs, rubs or gallops. S1 and S2 heard. ABDOMEN: Soft, nontender. Bowel sounds are heard. No organomegaly noted. EXTREMITIES: +3 leg edema. Ulceration noted under left heel. VASCULAR: Radial and dorsalis pedis pulses palpated, no evidence of clubbing. NEUROLOGIC: Patient is awake, alert and oriented x3. VITALS: Blood pressure 159/81, SpO2 97% on room air, pulse rate 64, respiratory rate 16 TELEMETRY: Sinus rhythm with PVCs LABS: WBC 3.4, hemoglobin 9.1, hematocrit 2 8.3, platelets 2:15, sodium 136, potassium 3.9, BUN 47, creatinine 4.63, AST 64, ALT 51, ALP 669 IMPRESSION: #1 congestive heart failure, anasarca, elevated BNP #2 restrictive cardiomyopathy, likely infiltrative #3 shortness of breath, pleural effusions #4 chronic kidney disease, creatinine greater than 4 #5 hypertension, inadequately controlled #6 pulmonary hypertension, severe #7 elevated liver enzymes #8 type 1 diabetes PLAN: Continue diuresis as recommended by nephrology. Continue SCDs and leg elevation for edema. Increase clonidine to 0.2 mg 3 times a day for hypertension. Consider increasing carvedilol to 50 mg twice a day. Suggest referral to Heart Failure Clinic at a tertiary care center. Prognosis is guarded. The patient has been seen and evaulated. Plan of care has been reviewed and agreed upon by Dr Martines. Objective - Vital Signs Vital signs: Vital Signs Temp 97.4 F L 05/13/20 20:00 Pulse 64 05/14/20 12:00 Resp 16 05/14/20 12:00 BP 159/81 05/14/20 12:00 Pulse Ox 97 05/14/20 12:00 Intake & Output 05/13/20 05/14/20 05/14/20 18:59 06:59 18:59 Intake Total 458 236 Output Total 300 725 Balance 158 -725 236 Weight 100.5 kg Intake: Oral 458 236 Output: Urine 300 725 Other: # Voids 3 1 # Bowel Movements 1 - Labs CBC & Chem 7: 05/14/20 06:16 05/14/20 06:16 Labs: Abnormal Lab Results - Last 24 Hours (Table) 05/13/20 05/13/20 05/14/20 Range/Units 17:30 20:18 05:57 WBC (3.8-10.6) k/uL RBC (4.30-5.90) m/uL Hgb (13.0-17.5) gm/dL Hct (39.0-53.0) % RDW (11.5-15.5) % Sodium (137-145) mmol/L BUN (9-20) mg/dL Creatinine (0.66-1.25) mg/dL POC Glucose (mg/dL) 149 H 158 H 114 H (75-99) mg/dL Calcium (8.4-10.2) mg/dL AST (17-59) U/L ALT (4-49) U/L Alkaline Phosphatase (38-126) U/L Total Protein (6.3-8.2) g/dL Albumin (3.5-5.0) g/dL 05/14/20 05/14/20 05/14/20 Range/Units 06:16 06:16 12:22 WBC 3.4 L (3.8-10.6) k/uL RBC 2.85 L (4.30-5.90) m/uL Hgb 9.1 L (13.0-17.5) gm/dL Hct 28.3 L (39.0-53.0) % RDW 18.0 H (11.5-15.5) % Sodium 136 L (137-145) mmol/L BUN 47 H (9-20) mg/dL Creatinine 4.63 H (0.66-1.25) mg/dL POC Glucose (mg/dL) 117 H (75-99) mg/dL Calcium 7.9 L (8.4-10.2) mg/dL AST 64 H (17-59) U/L ALT 51 H (4-49) U/L Alkaline Phosphatase 669 H (38-126) U/L Total Protein 6.0 L (6.3-8.2) g/dL Albumin 2.3 L (3.5-5.0) g/dL
[2020-05-14] MEDS: cloNIDine HCL 0.2 MG TAB PO SCH ×2 (16:40→19:47)
[2020-05-14 17:19] LABS: Glucose,Whole Blood 142 mg/dL (75-99)
[2020-05-14] MEDS ORDERED: metOLazone 2.5 MG TAB PO STA (20:17)
[2020-05-14 20:21] LABS: Glucose,Whole Blood 160 mg/dL (75-99)
[2020-05-14] MEDS: INSULIN DETEMIR (LEVEMIR) 100 UNIT/ML SYR SQ SCH (21:09)
[2020-05-15 06:09] LABS: Glucose,Whole Blood 134 mg/dL (75-99)
[2020-05-15] MEDS: carvediloL 12.5 MG TAB PO SCH ×2 (06:09→16:38)
[2020-05-15] MEDS: ISOSORBIDE DINITRATE 10 MG TAB PO SCH ×3 (08:19→21:54)
[2020-05-15] MEDS: hydrALAZINE HCL 50 MG TAB PO SCH ×3 (08:19→21:53)
[2020-05-15] MEDS: cloNIDine HCL 0.2 MG TAB PO SCH (08:19)
[2020-05-15] MEDS: ATORVASTATIN 40 MG TAB PO SCH (08:19)
[2020-05-15] MEDS: FUROSEMIDE 10 MG/ML 10 ML VIAL IV SCH (08:19)
[2020-05-15] MEDS: amLODIPine 10 MG TAB PO SCH (08:19)
[2020-05-15] MEDS: HEPARIN SODIUM,PORCINE 5,000 UNIT/ML 1 ML VIAL SQ SCH ×2 (08:20→21:54)
[2020-05-15] MEDS ORDERED: metOLazone 2.5 MG TAB PO SCH (09:00)
--- NOTE | 2020-05-15 09:32 | P.PN ---
Subjective Progress Note Date: 05/15/20 Patient seen and examined at bedside. Doing well. Complains of drainage from the incision site. Objective - Vital Signs Vital signs: Vital Signs Temp 98.8 F 05/15/20 08:00 Pulse 74 05/15/20 08:00 Resp 16 05/15/20 08:00 BP 160/78 05/15/20 08:00 Pulse Ox 100 05/15/20 08:00 Intake & Output 05/14/20 05/15/20 05/15/20 18:59 06:59 18:59 Intake Total 472 222 0 Output Total 500 1500 Balance -1188 0 Weight 99.7 kg Intake: Oral 472 222 0 Output: Urine 500 1500 Other: # Voids 0 # Bowel Movements 1 1 - Constitutional General appearance: Present: cooperative, no acute distress - Gastrointestinal Gastrointestinal Comment(s): Left groin incision site clean and intact. There is serous drainage from the site. - Musculoskeletal Musculoskeletal: Present: generalized weakness - Psychiatric Psychiatric: Present: A&O x's 3 - Labs CBC & Chem 7: 05/14/20 06:16 05/14/20 06:16 Labs: Abnormal Lab Results - Last 24 Hours (Table) 05/14/20 05/14/20 05/14/20 Range/Units 12:22 17:17 20:19 POC Glucose (mg/dL) 117 H 142 H 160 H (75-99) mg/dL 05/15/20 Range/Units 06:08 POC Glucose (mg/dL) 134 H (75-99) mg/dL Assessment and Plan (1) Lymphadenopathy Narrative/Plan: 39-year-old male status post left inguinal lymph node biopsy. There is active serous drainage from the incision site. This is expected secondary to the significant amount of anasarca and edema noted. Wound care instructions were provided to the patient and the patient's nurse. We will continue to follow. Current Visit: Yes Status: Acute Code(s): R59.1 - GENERALIZED ENLARGED LYMPH NODES SNOMED Code(s): 55672889
[2020-05-15 10:16] LABS: Anisocytosis Slight; HCT 27.8 % (39.0-53.0); HGB 8.8 gm/dL (13.0-17.5); Hypochromasia Slight; MCHC 31.6 g/dL (31.0-37.0); Macrocytosis Slight; Mean Platelet Volume 9.8; Platelet Count 201 k/uL (150-450); RBC 2.84 m/uL (4.30-5.90); RDW 17.7 % (11.5-15.5); WBC 4.5 k/uL (3.8-10.6)
[2020-05-15 10:37] LABS: Albumin 2.3 g/dL (3.5-5.0); Calcium 8.1 mg/dL (8.4-10.2)
--- NOTE | 2020-05-15 11:02 | P.PN ---
Subjective Progress Note Date: 05/15/20 59-year-old start seen in the office recently moving from [place] to be close to his mother. Apparently was diagnosed with cardiomyopathy ischemic type with angiogram and angioplasty back in 2018 history of type 2 diabetes on medication and history of anasarca who was bothered by the severity of the swelling the edema with large swelling in the scrotum. Was seen on week early started on diuretics without any improvement patient had gained 5 pounds within 1 week despite being on furosemide. The blood pressure remained extremely high at the time being on 3 medication at the time with no respond. Patient was sent to the emergency department seen and evaluated found to be in acute kidney failure with severe anasarca and congestive heart failure with slight anemia as well with significant abnormal liver function test. Troponin was negative but his BNP was 69,000. Chest x-ray showed moderate enlargement of the cardiac silhouette correlate with pulmonary vascular congestion and trace of pulmonary edema was started on Lasix a drip admitted to the hospital will be seen cardiology and nephrology will continue to treat his anasarca. 05/10: Patient remains on the cardiac stepdown unit. He states he feels a little bit better from yesterday. He is scheduled to see nephrology and cardiology toeda graham. Ultrasound bilateral lower extremities negative for DVT. VQ scan echocardiogram are pending. Plan is to obtain lymph node biopsy. Discussed case with Dr. Hebert and she suggested undergoing CAT scan of the abdomen and pelvis first. She will be ruling out nephrotic syndrome. Previous lab work will be obtained. The patient states he was first diagnosed with diabetes at age 18 and was placed on insulin and Glucophage. 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 Cataract surgery on the right and retinal surgeries. Patient is afebrile, heart rate 72, blood pressure 185/96, pulse ox 97% on room air. Repeat blood work revealed WBC 4.3, hemoglobin 10, platelet count 272. BUN 35 and creatinine 3.90. Chloride 109, potassium 3.6, sodium 140. CO2 26. Blood sugars are running between 84 and 151. Total bilirubin 0.9, AST 40, ALT 62, alkaline phosphatase 720. Echocardiogram reveals EF of 45-50% with moderate mitral regurgitation, severe tricuspid regurgitation, severe pulmonary hypertension, moderate pulmonic regurgitation, large pleural effusion, small generalized pericardial effusion. Hepatitis panel negative. Coronavirus PCR not detected. 05/11: VQ scan was normal. CAT scan of the abdomen and pelvis without contrast revealed bilateral inguinal and suspected from oral lymphadenopathy. There does appear to be diffuse anasarca as well as increased density within the mesentery suggestive of mesenteric edema and a small amount of ascites which limits the exam. Consider post contrast exam for assessment of adenopathy. Bilateral pleural effusions. Gastric distention. Chronic cystitis. Consult has been added for Dr. Cox for biopsy of enlarged lymph node and this has been scheduled for tomorrow, patient has been continued on a Lasix drip. He denies any significant improvement continues to have lower extremity edema. He has been afebrile, heart rate 78, blood pressure 156/80, pulse ox 90% on room air. Repeat blood work reveals worsening renal function with BUN 35 and creatinine 4.28. Alkaline phosphatase 641. Reviewed laboratory studies from [facility] in [facility]. Patient had a pericardial biopsy that showed mesothelial lined fibrous tissue with mild nonspecific chronic inflammation. No evidence of microorganisms. Creatinine at that facility was running 3.4-4.2. 05/12: Patient remains on the cardiac stepdown unit. He is scheduled for biopsy at 1:[address] Cox. Discussed in detail patient's results with the patient and his mother and discussed possible need for hemodialysis. He has been afebrile, heart rate 76, blood pressure 165/88, pulse ox 98% on room air. Repeat blood work revealed BUN 38 and creatinine 4.39. Blood sugars are running between 60 and 154. AST 51, ALT 51, alkaline phosphatase 676. Consult has been added for Dr. Lindsey regarding severe pulmonary hypertension. Patient is continued on Lasix drip. Nephrology is following with plan for kidney biopsy down the road. 05/13: Patient underwent lymph node biopsy yesterday, from the groin, pending results, patient scheduled to have kidney biopsy on Friday, no plans for dialysis at this time, edema is much better, however he still is edematous all o joseph, patient denies any chest pain or palpitations,no new dyspnea, hemoglobin is at 9.0, creatinine at 4.2 BUN of 41 potassium at 3.8, sugars are acceptable, alkaline phosphatase 643, withnormal ALT and AST, no cultures from any fluids, vitals arestable, with pulse ox 98% on room air, blood pressure ranges 155-170 systolic, no tachypnea tachycardia no melena and hematochezia. 05/14: Patient is without any new complaints today, still has edema, no shortness of breath at this year, no dysphagia, no chest pain or palpitations, vitals are stable, lymph node biopsy inguinal area still pending, patient is to have kidney biopsy as scheduled Friday, creatinine 4.6 BUN 47 potassium 3.9 hemoglobin 9.1 and double basic count 3.4, JOHANA negative, c-ANCA p-ANCA negative, transaminase noted slightly to be elevated, I'll: [id number], ALT 51 AST 64 05/15: Patient continues to have significant lower extremity edema, abdomen is softer today. His weight is down a total of 8 kg since admission. He seems to be less shortness of breath with minimal activity. He is off the Lasix drip and is currently on IV Lasix 60 mg every 12 hours. Lymph node biopsy site has serosanguineous drainage at the left groin. Dr. Cox has dressed the area. Biopsy report is pending. Consult with Dr. James was added on Friday and Dima level ordered. Patient is scheduled for possible kidney biopsy on Friday. Repeat lab work reveals hemoglobin 8.8, BUN 53 and creatinine 4.61. Blood sugars running between 134 160. Total bilirubin 1, AST 78, ALT 54, alkaline phosphatase 694. Mother is at bedside. Review of Systems CONSTITUTIONAL: Well-developed no shortness of breath while at rest no cough or wheezes. No fever. No chills. EYES: No icterus sclerae, no conjunctivitis. EARS, NOSE, MOUTH, THROAT, and FACE: No sore throat, lymphadenopathy, carotid bruits or deformity. RESPIRATORY: Positive shortness of breath. CARDIOVASCULAR: Has a PND orthopnea and angina with significant anasarca and edema. GASTROINTESTINAL: No Abd pain, Nausea or vomiting, no Diarrhea or constipation, No GI Bleed, no distention or masses. GENITOURINARY: Negative for Hematuria or UTI, no kidney stones. Swelling in the scrotum fluid retention. INTEGUMENT/BREAST: Negative for any muscular injury with mild osteoarthritis. Significant edema lower extremity. HEMATOLOGIC/LYMPHATIC: Negative for bleed or purpura. MUSCULOSKELTAL: Negative for Myalgia or arthralgia. NEURLOGICAL: No LOC, Sz or syncope, blurred vision dizziness or abnormality. BEHAVIORAL/PSYCH: Negative. ENDOCRINE: Negative. Physical Examination General Appearance: Alert, cooperative, no distress, appears stated age. P atient appears to be in no acute distress.Patient appears fatigued. Mother is at bedside. Neck HEENT: Supple, no lymphadenopathy, no thyroid enlargement, no carotid bruits. Lungs: Decreased expansion with deep inspiration positive for rhonchi with mild crackles in the bases with mild expiratory wheezes. Chest Wall: Decrease expansion with deep inspiration no tenderness and no deformity was found on exam, no costochondral pain or discomfort. Heart: Regular rate and rhythm, S1, S2 +3 positive JVD Back: Symmetric, no curvature, ROM normal, no CVA tenderness. Abdomen: Soft, non-tender, bowel sounds active all four quadrants, slight hepatomegaly with significant anasarca and abdominal wall area. Extremities: 3+ edema bilaterally with slight discoloration from the knee down. Pulses: 2+ and symmetric. Skin: Skin color, texture, tugor normal, no rashes or lesions. Neurologic: Alert oriented x3 cranial nerves II through XII intact, no motor deficit, no abnormal balance or gait. Assessment and Plan 1. Acute on chronic diastolic heart failure. Continue Lasix drip, monitor daily weight, electrolytes and renal function. Consults with cardiology and nephrology appreciated. Lasix 60 mg IV every 12 hours. Groin lymph node biopsy report is pending. Renal biopsy planned for Friday. 2 restrictive cardiomyopathy, amyloidosis with generalized anasarca. Continue diuresing. 3 acute kidney injury with chronic kidney disease stage IV. Normal ultrasound of the kidneys. Obtained previous lab work from [place]. Nephrology consult appreciated. 4 advance CAD: Post angioplasty and stent placement in 2018 patient was seen cardiology and apparently had more blockage with no angiogram lately. 5 acute anemia due to chronic kidney disease 6 abnormal liver function test. Hepatitis panel negative. 7 hyperlipidemia: Has been on atorvastatin 40 mg a day. 8 advanced noncontrolled hypertension. Continue Norvasc 10 mg daily, Catapres scheduled 3 times daily and as needed, hydralazine 100 mg 3 times daily, metolazone 2.5 mg Friday, Coreg 25 mg twice daily. 9 type 2 diabetes: On insulin, patient remain on Lantus and Humalog continue Accu-Chek with sliding scales coverage. A1c is 6.4. 10 Valvular heart disease with moderate mitral regurgitation, severe tricuspid regurgitation, moderate pulmonary regurgitation. 11 severe pulmonary hypertension. 12 GERD/GI prophylaxis: Continue pantoprazole. 13 DVT prophylaxis: Patient will be on heparin 5000 units subcutaneous twice a day. 14 COVID-19 infection not present. CODE STATUS: Full code. Discharge plan: home Impression and plan of care have been directed as dictated by the signing physician. Paige Muir nurse practitioner acting as scribe for signing physi rosa isela. Objective - Vital Signs Vital signs: Vital Signs Temp 98 F 05/15/20 04:00 Pulse 72 05/15/20 04:00 Resp 15 05/15/20 04:00 BP 146/87 05/15/20 04:00 Pulse Ox 99 05/15/20 04:00 Intake & Output 05/14/20 05/15/20 05/15/20 18:59 06:59 18:59 Intake Total 472 222 Output Total 500 1500 Balance -28 -1278 Weight 99.7 kg Intake: Oral 472 222 Output: Urine 500 1500 Other: # Bowel Movements 1 1 - Labs CBC & Chem 7: 05/15/20 09:56 05/15/20 09:56 Labs: Abnormal Lab Results - Last 24 Hours (Table) 05/14/20 05/14/20 05/14/20 Range/Units 12:22 17:17 20:19 POC Glucose (mg/dL) 117 H 142 H 160 H (75-99) mg/dL 05/15/20 Range/Units 06:08 POC Glucose (mg/dL) 134 H (75-99) mg/dL
--- NOTE | 2020-05-15 11:18 | P.PN ---
Subjective Patient is seen in follow-up for acute kidney injury. Renal function stable. Creatinine 4.6 today. Remains edematous. Nonoliguric. Scheduled for kidney biopsy on May 17. No chest pain or shortness of breath. Vital signs are stable. General: The patient appeared well nourished and normally developed. HEENT: Head exam is unremarkable. Neck is without jugular venous distension. LUNGS: Breath sounds decreased. HEART: Rate and Rhythm are regular. ABDOMEN: Soft, nontender. EXTREMITITES: 3+ edema. Objective - Vital Signs Vital signs: Vital Signs Temp 98.8 F 05/15/20 08:00 Pulse 74 05/15/20 08:00 Resp 16 05/15/20 08:00 BP 160/78 05/15/20 08:00 Pulse Ox 100 05/15/20 08:00 Intake & Output 05/14/20 05/15/20 05/15/20 18:59 06:59 18:59 Intake Total 472 222 0 Output Total 500 1500 Balance -28 -1278 0 Weight 99.7 kg Intake: Oral 472 222 0 Output: Urine 500 1500 Other: # Voids 0 # Bowel Movements 1 1 - Labs CBC & Chem 7: 05/15/20 09:56 05/15/20 09:56 Labs: Abnormal Lab Results - Last 24 Hours (Table) 05/12/20 05/14/20 05/14/20 Range/Units 09:12 12:22 17:17 RBC (4.30-5.90) m/uL Hgb (13.0-17.5) gm/dL Hct (39.0-53.0) % RDW (11.5-15.5) % Sodium (137-145) mmol/L BUN (9-20) mg/dL Creatinine (0.66-1.25) mg/dL Glucose (74-99) mg/dL POC Glucose (mg/dL) 117 H 142 H (75-99) mg/dL Calcium (8.4-10.2) mg/dL AST (17-59) U/L ALT (4-49) U/L Alkaline Phosphatase (38-126) U/L Total Protein (6.3-8.2) g/dL Albumin (3.5-5.0) g/dL Angiotensin Convert Enz 62 H (8-52) U/L 05/14/20 05/15/20 05/15/20 Range/Units 20:19 06:08 09:56 RBC 2.84 L (4.30-5.90) m/uL Hgb 8.8 L (13.0-17.5) gm/dL Hct 27.8 L (39.0-53.0) % RDW 17.7 H (11.5-15.5) % Sodium (137-145) mmol/L BUN (9-20) mg/dL Creatinine (0.66-1.25) mg/dL Glucose (74-99) mg/dL POC Glucose (mg/dL) 160 H 134 H (75-99) mg/dL Calcium (8.4-10.2) mg/dL AST (17-59) U/L ALT (4-49) U/L Alkaline Phosphatase (38-126) U/L Total Protein (6.3-8.2) g/dL Albumin (3.5-5.0) g/dL Angiotensin Convert Enz (8-52) U/L 05/15/20 Range/Units 09:56 RBC (4.30-5.90) m/uL Hgb (13.0-17.5) gm/dL Hct (39.0-53.0) % RDW (11.5-15.5) % Sodium 135 L (137-145) mmol/L BUN 53 H (9-20) mg/dL Creatinine 4.61 H (0.66-1.25) mg/dL Glucose 144 H (74-99) mg/dL POC Glucose (mg/dL) (75-99) mg/dL Calcium 8.1 L (8.4-10.2) mg/dL AST 78 H (17-59) U/L ALT 54 H (4-49) U/L Alkaline Phosphatase 694 H (38-126) U/L Total Protein 6.0 L (6.3-8.2) g/dL Albumin 2.3 L (3.5-5.0) g/dL Angiotensin Convert Enz (8-52) U/L Assessment and Plan Plan: Assessment: 1. Acute kidney injury secondary to ATN due to cardiorenal syndrome. However can't rule out glomerulonephritis. Patient has nephrotic range proteinuria. Serologies have been negative. Unknown baseline renal function. Creatinine was 3.7 on admission and is stable at 4.6 today. Unknown baseline renal function. 2. Inguinal lymphadenopathy status post biopsy. 3. Hypertension with chronic kidney disease. Partially volume sensitive. 4. Restrictive cardiomyopathy with concern for possible amyloidosis. 5. Volume overload. 6. Acute systolic CHF with ejection fraction of 45-50% with moderate mitral regurgitation, severe tricuspid regurgitation and pulmonary hypertension. Plan: Start Lasix drip at 10 mL an hour. Add metolazone 5 mg once daily. Low-salt diet and 1200 mL fluid restriction. Maintain current antihypertensives. Scheduled for kidney biopsy on May 17. Continue to monitor renal function and urine output.
[2020-05-15 12:16] LABS: Glucose,Whole Blood 176 mg/dL (75-99)
[2020-05-15] MEDS: FUROSEMIDE 100 MG in SODIUM CHLORIDE 0.9% 90 ML IV SCH ×2 (12:18→22:02)
--- NOTE | 2020-05-15 16:34 | PN ---
PROGRESS NOTE FOLLOW-UP NOTE: This is a 39-year-old gentleman with history of coronary artery disease, status post angioplasty, diabetes and restrictive cardiomyopathy whom I am seeing for the first time today. He was admitted to hospital with an acute exacerbation of chronic diastolic heart failure. He is feeling better. Leg edema has improved. PHYSICAL EXAMINATION: Heart rate is 74 beats per minute. Respiratory rate is 16, blood pressure 152/78. Chest exam reveals diminished air entry at the bases. Heart exam reveals first and second heart sounds. An S4 is heard. There is a systolic murmur at the left lower sternal border. Abdomen is soft. Examination of extremities reveals bilateral severe edema. The patient is currently on Isordil, Zaroxolyn, Zofran, Lasix, Catapres 0.2 t.i.d., Norvasc 10 daily, Lipitor 40 daily along with Zaroxolyn. ASSESSMENT: 1. Acute exacerbation of chronic diastolic heart failure. 2. Restrictive cardiomyopathy. 3. Coronary artery disease, status post angioplasty. 4. Uncontrolled hypertension. PLAN: I am going to increase the dose of Catapres to 0.2 t.i.d. MMODL / IJN: [id number] /
[2020-05-15] MEDS: cloNIDine HCL 0.1 MG TAB PO SCH ×2 (16:38→21:53)
[2020-05-15 17:19] LABS: Glucose,Whole Blood 180 mg/dL (75-99)
[2020-05-15 21:19] LABS: Glucose,Whole Blood 167 mg/dL (75-99)
[2020-05-15] MEDS: INSULIN DETEMIR (LEVEMIR) 100 UNIT/ML SYR SQ SCH (21:54)
[2020-05-16] MEDS: FUROSEMIDE 100 MG in SODIUM CHLORIDE 0.9% 90 ML IV SCH ×2 (05:38→23:05)
[2020-05-16] MEDS: carvediloL 12.5 MG TAB PO SCH ×2 (06:19→18:16)
[2020-05-16 06:58] LABS: Glucose,Whole Blood 74 mg/dL (75-99)
[2020-05-16 07:33] LABS: Anisocytosis Slight; HCT 28.7 % (39.0-53.0); HGB 8.8 gm/dL (13.0-17.5); Hypochromasia Slight; MCH 30.3 pg (25.0-35.0); MCHC 30.8 g/dL (31.0-37.0); MCV 98.5 fL (80.0-100.0); Macrocytosis Slight; Mean Platelet Volume 9.1; Platelet Count 207 k/uL (150-450); RBC 2.91 m/uL (4.30-5.90); RDW 17.7 % (11.5-15.5); WBC 2.9 k/uL (3.8-10.6)
[2020-05-16 08:01] LABS: Albumin 2.4 g/dL (3.5-5.0); Calcium 8.1 mg/dL (8.4-10.2); Potassium 3.9 mmol/L (3.5-5.1); Total Bilirubin 1.2 mg/dL (0.2-1.3); Total Protein 6.1 g/dL (6.3-8.2)
[2020-05-16] MEDS: HEPARIN SODIUM,PORCINE 5,000 UNIT/ML 1 ML VIAL SQ SCH ×2 (09:32→20:56)
[2020-05-16] MEDS: amLODIPine 10 MG TAB PO SCH (09:32)
[2020-05-16] MEDS: hydrALAZINE HCL 50 MG TAB PO SCH ×3 (09:32→20:56)
[2020-05-16] MEDS: ATORVASTATIN 40 MG TAB PO SCH (09:32)
[2020-05-16] MEDS: cloNIDine HCL 0.1 MG TAB PO SCH ×3 (09:32→20:56)
[2020-05-16] MEDS: ISOSORBIDE DINITRATE 10 MG TAB PO SCH ×3 (09:38→20:57)
[2020-05-16] MEDS: metOLazone 5 MG TAB PO SCH (09:38)
--- NOTE | 2020-05-16 12:06 | P.PN ---
Subjective Patient is seen in follow-up for acute kidney injury. Renal function stable. Creatinine 4.92 today. Remains edematous. Scheduled for kidney biopsy on May 17. No chest pain or shortness of breath. Good urine output. Weight trending down. Maintained on Lasix drip. Vital signs are stable. General: The patient appeared well nourished and normally developed. HEENT: Head exam is unremarkable. Neck is without jugular venous distension. LUNGS: Breath sounds decreased. HEART: Rate and Rhythm are regular. ABDOMEN: Soft, nontender. EXTREMITITES: 3+ edema. Objective - Vital Signs Vital signs: Vital Signs Temp 97.4 F L 05/15/20 20:00 Pulse 70 05/16/20 04:00 Resp 16 05/16/20 04:00 BP 152/76 05/16/20 04:00 Pulse Ox 100 05/15/20 08:00 Intake & Output 05/15/20 05/16/20 05/16/20 18:59 06:59 18:59 Intake Total 240 173.333 718 Output Total 1400 425 Balance 240 -1226.667 293 Weight 97.3 kg Intake: Intake, IV Titration 173.333 Amount Furosemide 100 mg In 173.333 Sodium Chloride 0.9% 90 ml @ 10 MG/HR 10 mls/hr IV .Q10H KATHERINE Rx#: [id number] Oral 240 718 Output: Urine 1400 425 Other: # Voids 1 # Bowel Movements 1 - Labs CBC & Chem 7: 05/16/20 06:56 05/16/20 06:56 Labs: Abnormal Lab Results - Last 24 Hours (Table) 05/15/20 05/15/20 05/15/20 Range/Units 11:56 17:13 21:18 WBC (3.8-10.6) k/uL RBC (4.30-5.90) m/uL Hgb (13.0-17.5) gm/dL Hct (39.0-53.0) % MCHC (31.0-37.0) g/dL RDW (11.5-15.5) % Sodium (137-145) mmol/L BUN (9-20) mg/dL Creatinine (0.66-1.25) mg/dL Glucose (74-99) mg/dL POC Glucose (mg/dL) 176 H 180 H 167 H (75-99) mg/dL Calcium (8.4-10.2) mg/dL AST (17-59) U/L ALT (4-49) U/L Alkaline Phosphatase (38-126) U/L Total Protein (6.3-8.2) g/dL Albumin (3.5-5.0) g/dL 05/16/20 05/16/20 05/16/20 Range/Units 06:40 06:56 06:56 WBC 2.9 L (3.8-10.6) k/uL RBC 2.91 L (4.30-5.90) m/uL Hgb 8.8 L (13.0-17.5) gm/dL Hct 28.7 L (39.0-53.0) % MCHC 30.8 L (31.0-37.0) g/dL RDW 17.7 H (11.5-15.5) % Sodium 136 L (137-145) mmol/L BUN 59 H (9-20) mg/dL Creatinine 4.92 H (0.66-1.25) mg/dL Glucose 66 L (74-99) mg/dL POC Glucose (mg/dL) 74 L (75-99) mg/dL Calcium 8.1 L (8.4-10.2) mg/dL AST 77 H (17-59) U/L ALT 65 H (4-49) U/L Alkaline Phosphatase 698 H (38-126) U/L Total Protein 6.1 L (6.3-8.2) g/dL Albumin 2.4 L (3.5-5.0) g/dL Assessment and Plan Plan: Assessment: 1. Acute kidney injury secondary to ATN due to cardiorenal syndrome. However can't rule out glomerulonephritis. Patient has nephrotic range proteinuria. Serologies have been negative. Unknown baseline renal function. Creatinine was 3.7 on admission and is up to 4.92 today. Unknown baseline renal function. 2. Inguinal lymphadenopathy status post biopsy. 3. Hypertension with chronic kidney disease. Partially volume sensitive. Better. 4. Restrictive cardiomyopathy with concern for possible amyloidosis. 5. Volume overload. 6. Acute systolic CHF with ejection fraction of 45-50% with moderate mitral regurgitation, severe tricuspid regurgitation and pulmonary hypertension. Plan: Maintain Lasix drip and metolazone for another 24 hours. Low-salt diet and 1200 mL fluid restriction. Maintain current antihypertensives. Scheduled for kidney biopsy on May 17. Continue to monitor renal function and urine output.
[2020-05-16 12:39] LABS: Glucose,Whole Blood 106 mg/dL (75-99)
--- NOTE | 2020-05-16 13:33 | P.PN ---
Subjective Progress Note Date: 05/16/20 59-year-old start seen in the office recently moving from [place] to be close to his mother. Apparently was diagnosed with cardiomyopathy ischemic type with angiogram and angioplasty back in 2018 history of type 2 diabetes on medication and history of anasarca who was bothered by the severity of the swelling the edema with large swelling in the scrotum. Was seen on week early started on diuretics without any improvement patient had gained 5 pounds within 1 week despite being on furosemide. The blood pressure remained extremely high at the time being on 3 medication at the time with no respond. Patient was sent to the emergency department seen and evaluated found to be in acute kidney failure with severe anasarca and congestive heart failure with slight anemia as well with significant abnormal liver function test. Troponin was negative but his BNP was 69,000. Chest x-ray showed moderate enlargement of the cardiac silhouette correlate with pulmonary vascular congestion and trace of pulmonary edema was started on Lasix a drip admitted to the hospital will be seen cardiology and nephrology will continue to treat his anasarca. 05/10: Patient remains on the cardiac stepdown unit. He states he feels a little bit better from yesterday. He is scheduled to see nephrology and cardiology toeda graham. Ultrasound bilateral lower extremities negative for DVT. VQ scan echocardiogram are pending. Plan is to obtain lymph node biopsy. Discussed case with Dr. Hebert and she suggested undergoing CAT scan of the abdomen and pelvis first. She will be ruling out nephrotic syndrome. Previous lab work will be obtained. The patient states he was first diagnosed with diabetes at age 18 and was placed on insulin and Glucophage. 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 Cataract surgery on the right and retinal surgeries. Patient is afebrile, heart rate 72, blood pressure 185/96, pulse ox 97% on room air. Repeat blood work revealed WBC 4.3, hemoglobin 10, platelet count 272. BUN 35 and creatinine 3.90. Chloride 109, potassium 3.6, sodium 140. CO2 26. Blood sugars are running between 84 and 151. Total bilirubin 0.9, AST 40, ALT 62, alkaline phosphatase 720. Echocardiogram reveals EF of 45-50% with moderate mitral regurgitation, severe tricuspid regurgitation, severe pulmonary hypertension, moderate pulmonic regurgitation, large pleural effusion, small generalized pericardial effusion. Hepatitis panel negative. Coronavirus PCR not detected. 05/11: VQ scan was normal. CAT scan of the abdomen and pelvis without contrast revealed bilateral inguinal and suspected from oral lymphadenopathy. There does appear to be diffuse anasarca as well as increased density within the mesentery suggestive of mesenteric edema and a small amount of ascites which limits the exam. Consider post contrast exam for assessment of adenopathy. Bilateral pleural effusions. Gastric distention. Chronic cystitis. Consult has been added for Dr. Cox for biopsy of enlarged lymph node and this has been scheduled for tomorrow, patient has been continued on a Lasix drip. He denies any significant improvement continues to have lower extremity edema. He has been afebrile, heart rate 78, blood pressure 156/80, pulse ox 90% on room air. Repeat blood work reveals worsening renal function with BUN 35 and creatinine 4.28. Alkaline phosphatase 641. Reviewed laboratory studies from [facility] in [facility]. Patient had a pericardial biopsy that showed mesothelial lined fibrous tissue with mild nonspecific chronic inflammation. No evidence of microorganisms. Creatinine at that facility was running 3.4-4.2. 05/12: Patient remains on the cardiac stepdown unit. He is scheduled for biopsy at 1:[address] Cox. Discussed in detail patient's results with the patient and his mother and discussed possible need for hemodialysis. He has been afebrile, heart rate 76, blood pressure 165/88, pulse ox 98% on room air. Repeat blood work revealed BUN 38 and creatinine 4.39. Blood sugars are running between 60 and 154. AST 51, ALT 51, alkaline phosphatase 676. Consult has been added for Dr. Lindsey regarding severe pulmonary hypertension. Patient is continued on Lasix drip. Nephrology is following with plan for kidney biopsy down the road. 05/13: Patient underwent lymph node biopsy yesterday, from the groin, pending results, patient scheduled to have kidney biopsy on Friday, no plans for dialysis at this time, edema is much better, however he still is edematous all o joseph, patient denies any chest pain or palpitations,no new dyspnea, hemoglobin is at 9.0, creatinine at 4.2 BUN of 41 potassium at 3.8, sugars are acceptable, alkaline phosphatase 643, withnormal ALT and AST, no cultures from any fluids, vitals arestable, with pulse ox 98% on room air, blood pressure ranges 155-170 systolic, no tachypnea tachycardia no melena and hematochezia. 05/14: Patient is without any new complaints today, still has edema, no shortness of breath at this year, no dysphagia, no chest pain or palpitations, vitals are stable, lymph node biopsy inguinal area still pending, patient is to have kidney biopsy as scheduled Friday, creatinine 4.6 BUN 47 potassium 3.9 hemoglobin 9.1 and double basic count 3.4, JOHANA negative, c-ANCA p-ANCA negative, transaminase noted slightly to be elevated, I'll: [id number], ALT 51 AST 64 05/15: Patient continues to have significant lower extremity edema, abdomen is softer today. His weight is down a total of 8 kg since admission. He seems to be less shortness of breath with minimal activity. He is off the Lasix drip and is currently on IV Lasix 60 mg every 12 hours. Lymph node biopsy site has serosanguineous drainage at the left groin. Dr. Cox has dressed the area. Biopsy report is pending. Consult with Dr. James was added on Friday and Dima level ordered. Patient is scheduled for possible kidney biopsy on Friday. Repeat lab work reveals hemoglobin 8.8, BUN 53 and creatinine 4.61. Blood sugars running between 134 160. Total bilirubin 1, AST 78, ALT 54, alkaline phosphatase 694. Mother is at bedside. 05/16: Yesterday, patient was resumed on a Lasix drip and has had a total loss of 10-1/2 kg since admission. He is also on low salt diet and 1200 mL fluid restriction. Lymph node biopsy report remains pending. He is scheduled for renal biopsy tomorrow. Patient has been afebrile, heart rate 70, blood pressure 152/76, pulse ox 100% on room air. Repeat blood work reveals WBC 2.9, hemoglobin 8.8. BUN 59 creatinine 4.92. Blood sugars running between 66 and 167. Alkaline phosphatase 698, total bilirubin 1.2, AST 77, ALT 65. Patient continues to have lower extremity edema. He denies chest pain or shortness of breath. Good urine output. Review of Systems CONSTITUTIONAL: Well-developed no shortness of breath while at rest no cough or wheezes. No fever. No chills. EYES: No icterus sclerae, no conjunctivitis. EARS, NOSE, MOUTH, THROAT, and FACE: No sore throat, lymphadenopathy, carotid bruits or deformity. RESPIRATORY: Denies shortness of breath. CARDIOVASCULAR: Has a PND orthopnea and angina with significant anasarca and edema. GASTROINTESTINAL: No Abd pain, Nausea or vomiting, no Diarrhea or constipation, No GI Bleed, no distention or masses. GENITOURINARY: Negative for Hematuria or UTI, no kidney stones. Swelling in the scrotum fluid retention. INTEGUMENT/BREAST: Negative for any muscular injury with mild osteoarthritis. Significant edema lower extremity. HEMATOLOGIC/LYMPHATIC: Negative for bleed or purpura. MUSCULOSKELTAL: Negative for Myalgia or arthralgia. NEURLOGICAL: No LOC, Sz or syncope, blurred vision dizziness or abnormality. BEHAVIORAL/PSYCH: Negative. ENDOCRINE: Negative. Physical Examination General Appearance: Alert, cooperative, no distress, appears stated age. Patient appears to be in no acute distress. Neck HEENT: Supple, no lymphadenopathy, no thyroid enlargement, no carotid bruits. Lungs: Decreased expansion with deep inspiration positive for rhonchi with mild crackles in the bases with mild expiratory wheezes. Chest Wall: Decrease expansion with deep inspiration no tenderness and no deformity was found on exam, no costochondral pain or discomfort. Heart: Regular rate and rhythm, S1, S2 +3 positive JVD Back: Symmetric, no curvature, ROM normal, no CVA tenderness. Abdomen: Soft, non-tender, bowel sounds active all four quadrants, slight hepatomegaly with significant anasarca and abdominal wall area. Extremities: 3+ edema bilaterally with slight discoloration from the knee down. Pulses: 2+ and symmetric. Skin: Skin color, texture, tugor normal, no rashes or lesions. Neurologic: Alert oriented x3 cranial nerves II through XII intact, no motor deficit, no abnormal balance or gait. Assessment and Plan 1. Acute on chronic diastolic heart failure. Continue Lasix drip, monitor daily weight, electrolytes and renal function. Consults with cardiology and nephrology appreciated. Groin lymph node biopsy report is pending. Renal biopsy planned for Friday. 2 restrictive cardiomyopathy, amyloidosis with generalized anasarca. Continue diuresing. 3 acute kidney injury with chronic kidney disease stage IV. Normal ultrasound of the kidneys. Obtained previous lab work from [place]. Nephrology consult appreciated. Renal biopsy scheduled for tomorrow. 4 advance CAD: Post angioplasty and stent placement in 2018 patient was seen cardiology and apparently had more blockage with no angiogram lately. 5 acute anemia due to chronic kidney disease 6 abnormal liver function test. Hepatitis panel negative. 7 hyperlipidemia: Has been on atorvastatin 40 mg a day. 8 advanced noncontrolled hypertension. Continue Norvasc 10 mg daily, Catapres scheduled 3 times daily and as needed, hydralazine 100 mg 3 times daily, metolazone increased to 5 mg daily and frequency increased to daily, Coreg 25 mg twice daily. 9 type 2 diabetes: On insulin, patient remain on Lantus and Humalog continue Accu-Chek with sliding scales coverage. A1c is 6.4. 10 Valvular heart disease with moderate mitral regurgitation, severe tricuspid regurgitation, moderate pulmonary regurgitation. 11 severe pulmonary hypertension. 12 GERD/GI prophylaxis: Continue pantoprazole. 13 DVT prophylaxis: Patient will be on heparin 5000 units subcutaneous twice a day. 14 COVID-19 infection not present. CODE STATUS: Full code. Discharge plan: home Impression and plan of care have been directed as dictated by the signing physician. Paige Muir nurse practitioner acting as scribe for signing physician. Objective - Vital Signs Vital signs: Vital Signs Temp 97.4 F L 05/15/20 20:00 Pulse 70 05/16/20 04:00 Resp 16 05/16/20 04:00 BP 152/76 05/16/20 04:00 Pulse Ox 100 05/15/20 08:00 Intake & Output 05/15/20 05/16/20 05/16/20 18:59 06:59 18:59 Intake Total 240 173.333 Output Total 1400 425 Balance 240 -1226.667 -425 Weight 97.3 kg Intake: Intake, IV Titration 173.333 Amount Furosemide 100 mg In 173.333 Sodium Chloride 0.9% 90 ml @ 10 MG/HR 10 mls/hr IV .Q10H KATHERINE Rx#: [id number] Oral 240 Output: Urine 1400 425 Other: # Voids 1 # Bowel Movements 1 - Labs CBC & Chem 7: 05/16/20 06:56 05/16/20 06:56 Labs: Abnormal Lab Results - Last 24 Hours (Table) 05/12/20 05/15/2020 Range/Units 09:12 09:56 09:56 WBC (3.8-10.6) k/uL RBC 2.84 L (4.30-5.90) m/uL Hgb 8.8 L (13.0-17.5) gm/dL Hct 27.8 L (39.0-53.0) % MCHC (31.0-37.0) g/dL RDW 17.7 H (11.5-15.5) % Sodium 135 L (137-145) mmol/L BUN 53 H (9-20) mg/dL Creatinine 4.61 H (0.66-1.25) mg/dL Glucose 144 H (74-99) mg/dL POC Glucose (mg/dL) (75-99) mg/dL Calcium 8.1 L (8.4-10.2) mg/dL AST 78 H (17-59) U/L ALT 54 H (4-49) U/L Alkaline Phosphatase 694 H (38-126) U/L Total Protein 6.0 L (6.3-8.2) g/dL Albumin 2.3 L (3.5-5.0) g/dL Angiotensin Convert Enz 62 H (8-52) U/L 05/15/20 05/15/20 05/15/20 Range/Units 11:56 17:13 21:18 WBC (3.8-10.6) k/uL RBC (4.30-5.90) m/uL Hgb (13.0-17.5) gm/dL Hct (39.0-53.0) % MCHC (31.0-37.0) g/dL RDW (11.5-15.5) % Sodium (137-145) mmol/L BUN (9-20) mg/dL Creatinine (0.66-1.25) mg/dL Glucose (74-99) mg/dL POC Glucose (mg/dL) 176 H 180 H 167 H (75-99) mg/dL Calcium (8.4-10.2) mg/dL AST (17-59) U/L ALT (4-49) U/L Alkaline Phosphatase (38-126) U/L Total Protein (6.3-8.2) g/dL Albumin (3.5-5.0) g/dL Angiotensin Convert Enz (8-52) U/L 05/16/20 05/16/20 05/16/20 Range/Units 06:40 06:56 06:56 WBC 2.9 L (3.8-10.6) k/uL RBC 2.91 L (4.30-5.90) m/uL Hgb 8.8 L (13.0-17.5) gm/dL Hct 28.7 L (39.0-53.0) % MCHC 30.8 L (31.0-37.0) g/dL RDW 17.7 H (11.5-15.5) % Sodium 136 L (137-145) mmol/L BUN 59 H (9-20) mg/dL Creatinine 4.92 H (0.66-1.25) mg/dL Glucose 66 L (74-99) mg/dL POC Glucose (mg/dL) 74 L (75-99) mg/dL Calcium 8.1 L (8.4-10.2) mg/dL AST 77 H (17-59) U/L ALT 65 H (4-49) U/L Alkaline Phosphatase 698 H (38-126) U/L Total Protein 6.1 L (6.3-8.2) g/dL Albumin 2.4 L (3.5-5.0) g/dL Angiotensin Convert Enz (8-52) U/L
--- NOTE | 2020-05-16 15:55 | PN ---
PROGRESS NOTE Reggie is a 39-year-old gentleman with very complicated history including renal failure, congestive heart failure, coronary artery disease. He is currently on metolazone, Lasix drip, Norvasc, Lipitor, Coreg, and Catapres. He is awaiting renal biopsy. On exam, heart rate is 70 beats per minute, blood pressure is 132/76, respiratory rate is 16, O2 saturation is 100% on room air. There is no jugular venous distention. Chest exam reveals good air entry bilaterally. Heart exam reveals first and second heart sounds and S4 is heard. Abdomen is soft. Exam of the extremities reveals bilateral moderate edema. ASSESSMENT: Acute exacerbation of chronic diastolic heart failure, restrictive cardiomyopathy, coronary artery disease status post angioplasty and uncontrolled hypertension. PLAN: Blood pressure is still somewhat poorly controlled. I will continue current medications and wait until the increased dose of Catapres become effective. MMODL / IJN: [id number] /
[2020-05-16 17:33] LABS: Glucose,Whole Blood 179 mg/dL (75-99)
[2020-05-16 20:52] LABS: Glucose,Whole Blood 202 mg/dL (75-99)
[2020-05-16] MEDS: INSULIN DETEMIR (LEVEMIR) 100 UNIT/ML SYR SQ SCH (20:58)
[2020-05-17 06:04] LABS: Glucose,Whole Blood 166 mg/dL (75-99)
[2020-05-17 06:15] LABS: Anisocytosis Slight; HCT 28.5 % (39.0-53.0); HGB 9.1 gm/dL (13.0-17.5); MCH 30.8 pg (25.0-35.0); MCHC 31.8 g/dL (31.0-37.0); MCV 96.9 fL (80.0-100.0); Macrocytosis Slight; Mean Platelet Volume 9.3; Platelet Count 192 k/uL (150-450); RBC 2.94 m/uL (4.30-5.90); RDW 17.5 % (11.5-15.5); WBC 3.5 k/uL (3.8-10.6)
[2020-05-17 06:24] LABS: Prothrombin Time 10.2 sec (9.0-12.0)
[2020-05-17 06:27] LABS: Calcium 8.1 mg/dL (8.4-10.2); Magnesium 1.9 mg/dL (1.6-2.3); Phosphorus 5.1 mg/dL (2.5-4.5); Potassium 3.7 mmol/L (3.5-5.1)
[2020-05-17] MEDS: FUROSEMIDE 100 MG in SODIUM CHLORIDE 0.9% 90 ML IV SCH ×3 (06:41→21:25)
[2020-05-17] MEDS: carvediloL 12.5 MG TAB PO SCH ×2 (06:42→18:53)
[2020-05-17] MEDS: HEPARIN SODIUM,PORCINE 5,000 UNIT/ML 1 ML VIAL SQ SCH ×2 (07:38→21:27)
--- NOTE | 2020-05-17 09:20 | P.PN ---
Subjective Patient is seen in follow-up for acute kidney injury. Renal function stable. Creatinine 4.97 today. Remains edematous. Scheduled for kidney biopsy today. No chest pain or shortness of breath. Good urine output. Maintained on Lasix drip. Vital signs are stable. General: The patient appeared well nourished and normally developed. HEENT: Head exam is unremarkable. Neck is without jugular venous distension. LUNGS: Breath sounds decreased. HEART: Rate and Rhythm are regular. ABDOMEN: Soft, nontender. EXTREMITITES: 3+ edema. Objective - Vital Signs Vital signs: Vital Signs Temp 97.6 F 05/17/20 04:00 Pulse 74 05/17/20 04:00 Resp 18 05/17/20 04:00 BP 137/71 05/17/20 04:00 Pulse Ox 99 05/17/20 04:00 Intake & Output 05/16/20 05/17/20 05/17/20 18:59 06:59 18:59 Intake Total 1058 396 90 Output Total 1100 2000 Balance -42 -1604 90 Weight 98.7 kg Intake: IV 80 Furosemide 100 mg In 80 Sodium Chloride 0.9% 90 ml @ 5 MG/HR 5 mls/hr IV .Q20H KATHERINE Rx#:[id number] Intake, IV Titration 100 76 Amount Furosemide 100 mg In 100 76 Sodium Chloride 0.9% 90 ml @ 10 MG/HR 10 mls/hr IV .Q10H KATHERINE Rx#: [id number] Oral 958 240 90 Output: Urine 1100 2000 Other: Voiding Method Toilet Toilet # Voids 1 # Bowel Movements 1 - Labs CBC & Chem 7: 05/17/20 05:57 05/17/20 05:57 Labs: Abnormal Lab Results - Last 24 Hours (Table) 05/16/20 05/16/20 05/16/20 Range/Units 12:21 17:17 20:51 WBC (3.8-10.6) k/uL RBC (4.30-5.90) m/uL Hgb (13.0-17.5) gm/dL Hct (39.0-53.0) % RDW (11.5-15.5) % Sodium (137-145) mmol/L BUN (9-20) mg/dL Creatinine (0.66-1.25) mg/dL Glucose (74-99) mg/dL POC Glucose (mg/dL) 106 H 179 H 202 H (75-99) mg/dL Calcium (8.4-10.2) mg/dL Phosphorus (2.5-4.5) mg/dL 05/17/20 05/17/20 05/17/20 Range/Units 05:57 05:57 06:03 WBC 3.5 L (3.8-10.6) k/uL RBC 2.94 L (4.30-5.90) m/uL Hgb 9.1 L (13.0-17.5) gm/dL Hct 28.5 L (39.0-53.0) % RDW 17.5 H (11.5-15.5) % Sodium 135 L (137-145) mmol/L BUN 64 H (9-20) mg/dL Creatinine 4.97 H (0.66-1.25) mg/dL Glucose 153 H (74-99) mg/dL POC Glucose (mg/dL) 166 H (75-99) mg/dL Calcium 8.1 L (8.4-10.2) mg/dL Phosphorus 5.1 H (2.5-4.5) mg/dL Assessment and Plan Plan: Assessment: 1. Acute kidney injury secondary to ATN due to cardiorenal syndrome. However can't rule out glomerulonephritis. Patient has nephrotic range proteinuria. Serologies have been negative. Unknown baseline renal function. Creatinine was 3.7 on admission and is up to 4.97 today. Unknown baseline renal function. 2. Inguinal lymphadenopathy status post biopsy. 3. Hypertension with chronic kidney disease. Partially volume sensitive. Better. 4. Restrictive cardiomyopathy with concern for possible amyloidosis. 5. Volume overload. 6. Acute systolic CHF with ejection fraction of 45-50% with moderate mitral regurgitation, severe tricuspid regurgitation and pulmonary hypertension. 7. Anemia of chronic kidney disease. Rule out iron deficiency. Plan: Maintain Lasix drip and metolazone. Low-salt diet and 1200 mL fluid restriction. Maintain current antihypertensives. Scheduled for kidney biopsy today. Discussed with the patient at length regarding the need to start renal repla cement therapy due to advanced renal failure and severe volume overload despite being on Lasix drip. He is agreeable to proceed. Vascular surgery consulted for permacath placement. Plan for first treatment of hemodialysis today prior to kidney biopsy to prevent uremic bleed. I will also give him a dose of IV DDAVP today. email marketing manager to help facilitate outpatient hemodialysis set up. Case was also discussed with the primary team. Check iron studies.
[2020-05-17] MEDS ORDERED: DESMOPRESSIN ACETATE 24 MCG in SODIUM CHLORIDE 0.9% 50 ML IVPB ONE (09:30)
--- NOTE | 2020-05-17 10:33 | P.PN ---
Subjective Progress Note Date: 05/17/20 59-year-old start seen in the office recently moving from [place] to be close to his mother. Apparently was diagnosed with cardiomyopathy ischemic type with angiogram and angioplasty back in 2018 history of type 2 diabetes on medication and history of anasarca who was bothered by the severity of the swelling the edema with large swelling in the scrotum. Was seen on week early started on diuretics without any improvement patient had gained 5 pounds within 1 week despite being on furosemide. The blood pressure remained extremely high at the time being on 3 medication at the time with no respond. Patient was sent to the emergency department seen and evaluated found to be in acute kidney failure with severe anasarca and congestive heart failure with slight anemia as well with significant abnormal liver function test. Troponin was negative but his BNP was 69,000. Chest x-ray showed moderate enlargement of the cardiac silhouette correlate with pulmonary vascular congestion and trace of pulmonary edema was started on Lasix a drip admitted to the hospital will be seen cardiology and nephrology will continue to treat his anasarca. 05/10: Patient remains on the cardiac stepdown unit. He states he feels a little bit better from yesterday. He is scheduled to see nephrology and cardiology toeda graham. Ultrasound bilateral lower extremities negative for DVT. VQ scan echocardiogram are pending. Plan is to obtain lymph node biopsy. Discussed case with Dr. Hebert and she suggested undergoing CAT scan of the abdomen and pelvis first. She will be ruling out nephrotic syndrome. Previous lab work will be obtained. The patient states he was first diagnosed with diabetes at age 18 and was placed on insulin and Glucophage. 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 Cataract surgery on the right and retinal surgeries. Patient is afebrile, heart rate 72, blood pressure 185/96, pulse ox 97% on room air. Repeat blood work revealed WBC 4.3, hemoglobin 10, platelet count 272. BUN 35 and creatinine 3.90. Chloride 109, potassium 3.6, sodium 140. CO2 26. Blood sugars are running between 84 and 151. Total bilirubin 0.9, AST 40, ALT 62, alkaline phosphatase 720. Echocardiogram reveals EF of 45-50% with moderate mitral regurgitation, severe tricuspid regurgitation, severe pulmonary hypertension, moderate pulmonic regurgitation, large pleural effusion, small generalized pericardial effusion. Hepatitis panel negative. Coronavirus PCR not detected. 05/11: VQ scan was normal. CAT scan of the abdomen and pelvis without contrast revealed bilateral inguinal and suspected from oral lymphadenopathy. There does appear to be diffuse anasarca as well as increased density within the mesentery suggestive of mesenteric edema and a small amount of ascites which limits the exam. Consider post contrast exam for assessment of adenopathy. Bilateral pleural effusions. Gastric distention. Chronic cystitis. Consult has been added for Dr. Cox for biopsy of enlarged lymph node and this has been scheduled for tomorrow, patient has been continued on a Lasix drip. He denies any significant improvement continues to have lower extremity edema. He has been afebrile, heart rate 78, blood pressure 156/80, pulse ox 90% on room air. Repeat blood work reveals worsening renal function with BUN 35 and creatinine 4.28. Alkaline phosphatase 641. Reviewed laboratory studies from [facility] in [facility]. Patient had a pericardial biopsy that showed mesothelial lined fibrous tissue with mild nonspecific chronic inflammation. No evidence of microorganisms. Creatinine at that facility was running 3.4-4.2. 05/12: Patient remains on the cardiac stepdown unit. He is scheduled for biopsy at 1:[address] Cox. Discussed in detail patient's results with the patient and his mother and discussed possible need for hemodialysis. He has been afebrile, heart rate 76, blood pressure 165/88, pulse ox 98% on room air. Repeat blood work revealed BUN 38 and creatinine 4.39. Blood sugars are running between 60 and 154. AST 51, ALT 51, alkaline phosphatase 676. Consult has been added for Dr. Lindsey regarding severe pulmonary hypertension. Patient is continued on Lasix drip. Nephrology is following with plan for kidney biopsy down the road. 05/13: Patient underwent lymph node biopsy yesterday, from the groin, pending results, patient scheduled to have kidney biopsy on Friday, no plans for dialysis at this time, edema is much better, however he still is edematous all o joseph, patient denies any chest pain or palpitations,no new dyspnea, hemoglobin is at 9.0, creatinine at 4.2 BUN of 41 potassium at 3.8, sugars are acceptable, alkaline phosphatase 643, withnormal ALT and AST, no cultures from any fluids, vitals arestable, with pulse ox 98% on room air, blood pressure ranges 155-170 systolic, no tachypnea tachycardia no melena and hematochezia. 05/14: Patient is without any new complaints today, still has edema, no shortness of breath at this year, no dysphagia, no chest pain or palpitations, vitals are stable, lymph node biopsy inguinal area still pending, patient is to have kidney biopsy as scheduled Friday, creatinine 4.6 BUN 47 potassium 3.9 hemoglobin 9.1 and double basic count 3.4, JOHANA negative, c-ANCA p-ANCA negative, transaminase noted slightly to be elevated, I'll: [id number], ALT 51 AST 64 05/15: Patient continues to have significant lower extremity edema, abdomen is softer today. His weight is down a total of 8 kg since admission. He seems to be less shortness of breath with minimal activity. He is off the Lasix drip and is currently on IV Lasix 60 mg every 12 hours. Lymph node biopsy site has serosanguineous drainage at the left groin. Dr. Cox has dressed the area. Biopsy report is pending. Consult with Dr. James was added on Friday and Dima level ordered. Patient is scheduled for possible kidney biopsy on Friday. Repeat lab work reveals hemoglobin 8.8, BUN 53 and creatinine 4.61. Blood sugars running between 134 160. Total bilirubin 1, AST 78, ALT 54, alkaline phosphatase 694. Mother is at bedside. 05/16: Yesterday, patient was resumed on a Lasix drip and has had a total loss of 10-1/2 kg since admission. He is also on low salt diet and 1200 mL fluid restriction. Lymph node biopsy report remains pending. He is scheduled for renal biopsy tomorrow. Patient has been afebrile, heart rate 70, blood pressure 152/76, pulse ox 100% on room air. Repeat blood work reveals WBC 2.9, hemoglobin 8.8. BUN 59 creatinine 4.92. Blood sugars running between 66 and 167. Alkaline phosphatase 698, total bilirubin 1.2, AST 77, ALT 65. Patient continues to have lower extremity edema. He denies chest pain or shortness of breath. Good urine output. 05/17: Patient remains on Lasix drip as started by nephrology. He continues to have lower extremity edema despite weight loss. Discussed case with Dr. Marcum and agreeable for dialysis. Consult placed with Dr. Crawford for permacath placement in the right IJ. Patient is been afebrile, heart rate 74, blood pressure 137/71, pulse ox 99% on room air. Repeat blood work reveals sodium 135, BUN 64 and creatinine 4.97. Hemoglobin 9.1, WBC 3.5. The patient is sched uled for renal biopsy which may be delayed until tomorrow. Review of Systems CONSTITUTIONAL: Well-developed no shortness of breath while at rest no cough or wheezes. No fever. No chills. EYES: No icterus sclerae, no conjunctivitis. EARS, NOSE, MOUTH, THROAT, and FACE: No sore throat, lymphadenopathy, carotid bruits or deformity. RESPIRATORY: Denies shortness of breath at rest. CARDIOVASCULAR: Has a PND orthopnea and angina with significant anasarca and edema. GASTROINTESTINAL: No Abd pain, Nausea or vomiting, no Diarrhea or constipation, No GI Bleed, no distention or masses. GENITOURINARY: Negative for Hematuria or UTI, no kidney stones. Swelling in the scrotum fluid retention. INTEGUMENT/BREAST: Negative for any muscular injury with mild osteoarthritis. Significant edema lower extremity. HEMATOLOGIC/LYMPHATIC: Negative for bleed or purpura. MUSCULOSKELTAL: Negative for Myalgia or arthralgia. NEURLOGICAL: No LOC, Sz or syncope, blurred vision dizziness or abnormality. BEHAVIORAL/PSYCH: Negative. ENDOCRINE: Negative. Physical Examination General Appearance: Alert, cooperative, no distress, appears stated age. Patient appears to be in no acute distress. Neck HEENT: Supple, no lymphadenopathy, no thyroid enlargement, no carotid bruits. Lungs: Decreased expansion with deep inspiration positive for rhonchi with mild crackles in the bases with mild expiratory wheezes. Chest Wall: Decrease expansion with deep inspiration no tenderness and no deformity was found on exam, no costochondral pain or discomfort. Heart: Regular rate and rhythm, S1, S2 +3 positive JVD Back: Symmetric, no curvature, ROM normal, no CVA tenderness. Abdomen: Soft, non-tender, bowel sounds active all four quadrants, slight hepatomegaly with significant anasarca and abdominal wall area. Extremities: 3+ edema bilaterally with slight discoloration from the knee down. Pulses: 2+ and symmetric. Skin: Skin color, texture, tugor normal, no rashes or lesions. Neurologic: Alert oriented x3 cranial nerves II through XII intact, no motor deficit, no abnormal balance or gait. Assessment and Plan 1. Acute on chronic diastolic heart failure. Continue Lasix drip, monitor daily weight, electrolytes and renal function. Consults with cardiology and nephrology appreciated. Groin lymph node biopsy report is pending. Renal biopsy planned for Friday. 2 restrictive cardiomyopathy, amyloidosis with generalized anasarca. Continue diuresing. 3 acute kidney injury with chronic kidney disease stage IV. Normal ultrasound of the kidneys. Nephrology consult appreciated. Consult with Dr. Crawford for permacath placement and patient is started dialysis. Renal biopsy scheduled for today or tomorrow. 4 advance CAD: Post angioplasty and stent placement in 2018 patient was seen cardiology and apparently had more blockage with no angiogram lately. 5 acute anemia due to chronic kidney disease 6 abnormal liver function test. Hepatitis panel negative. 7 hyperlipidemia: Has been on atorvastatin 40 mg a day. 8 advanced noncontrolled hypertension. Continue Norvasc 10 mg daily, Catapres scheduled 3 times daily and as needed, hydralazine 100 mg 3 times daily, metolazone increased to 5 mg daily and frequency increased to daily, Coreg 25 mg twice daily. 9 type 2 diabetes: On insulin, patient remain on Lantus and Humalog continue Accu-Chek with sliding scales coverage. A1c is 6.4. 10 Valvular heart disease with moderate mitral regurgitation, severe tricuspid regurgitation, moderate pulmonary regurgitation. 11 severe pulmonary hypertension. 12 GERD/GI prophylaxis: Continue pantoprazole. 13 DVT prophylaxis: heparin 5000 units subcutaneous twice a day. 14 COVID-19 infection not present. CODE STATUS: Full code. Discharge plan: home Impression and plan of care have been directed as dictated by the signing physician. Paige Muir nurse practitioner acting as scribe for signing physician. Objective - Vital Signs Vital signs: Vital Signs Temp 97.6 F 05/17/20 04:00 Pulse 74 05/17/20 04:00 Resp 18 05/17/20 04:00 BP 137/71 05/17/20 04:00 Pulse Ox 99 05/17/20 04:00 Intake & Output 07/28/20 07/29/20 07/29/20 18:59 06:59 18:59 Intake Total 1058 396 Output Total 1100 2000 Balance -42 -1604 Weight 98.7 kg Intake: IV 80 Furosemide 100 mg In 80 Sodium Chloride 0.9% 90 ml @ 5 MG/HR 5 mls/hr IV .Q20H [facility] Rx#:[id number] Intake, IV Titration 100 76 Amount Furosemide 100 mg In 100 76 Sodium Chloride 0.9% 90 ml @ 10 MG/HR 10 mls/hr IV .Q10H [facility] Rx#: [id number] Oral 958 240 Output: Urine 1100 2000 Other: Voiding Method Toilet Toilet # Voids 1 # Bowel Movements 1 - Labs CBC & Chem 7: 05/17/20 05:57 05/17/20 05:57 Labs: Abnormal Lab Results - Last 24 Hours (Table) 05/16/20 05/16/20 05/16/20 Range/Units 12:21 17:17 20:51 WBC (3.8-10.6) k/uL RBC (4.30-5.90) m/uL Hgb (13.0-17.5) gm/dL Hct (39.0-53.0) % RDW (11.5-15.5) % Sodium (137-145) mmol/L BUN (9-20) mg/dL Creatinine (0.66-1.25) mg/dL Glucose (74-99) mg/dL POC Glucose (mg/dL) 106 H 179 H 202 H (75-99) mg/dL Calcium (8.4-10.2) mg/dL Phosphorus (2.5-4.5) mg/dL 05/17/20 05/17/20 05/17/20 Range/Units 05:57 05:57 06:03 WBC 3.5 L (3.8-10.6) k/uL RBC 2.94 L (4.30-5.90) m/uL Hgb 9.1 L (13.0-17.5) gm/dL Hct 28.5 L (39.0-53.0) % RDW 17.5 H (11.5-15.5) % Sodium 135 L (137-145) mmol/L BUN 64 H (9-20) mg/dL Creatinine 4.97 H (0.66-1.25) mg/dL Glucose 153 H (74-99) mg/dL POC Glucose (mg/dL) 166 H (75-99) mg/dL Calcium 8.1 L (8.4-10.2) mg/dL Phosphorus 5.1 H (2.5-4.5) mg/dL
[2020-05-17] MEDS: ISOSORBIDE DINITRATE 10 MG TAB PO SCH ×3 (12:00→21:26)
[2020-05-17] MEDS: cloNIDine HCL 0.1 MG TAB PO SCH ×3 (12:01→21:27)
[2020-05-17] MEDS: hydrALAZINE HCL 50 MG TAB PO SCH ×3 (12:02→21:26)
[2020-05-17] MEDS: ATORVASTATIN 40 MG TAB PO SCH (12:07)
[2020-05-17] MEDS: amLODIPine 10 MG TAB PO SCH (12:07)
[2020-05-17] MEDS: metOLazone 5 MG TAB PO SCH (12:07)
[2020-05-17 12:23] LABS: Glucose,Whole Blood 141 mg/dL (75-99)
[2020-05-17] MEDS ORDERED: LIDOCAINE 1% INJ 10MG/ML (20 ML MDV) SQ ONE (15:42)
[2020-05-17] MEDS ORDERED: fentaNYL (PF) 50 MCG/ML 2 ML AMP IV ONE (15:48)
[2020-05-17] MEDS ORDERED: MIDAZOLAM 2 MG/2 ML VIAL IV ONE (15:48)
--- NOTE | 2020-05-17 15:56 | PN ---
PROGRESS NOTE Reggie is a 39-year-old gentleman who is admitted to hospital with renal failure and congestive heart failure and carries a history of coronary artery disease. He was to undergo kidney biopsy, but the decision right now is to first start him on dialysis before he goes for biopsy. He remains generally edematous. On exam, heart rate is 74 beats per minute. Blood pressure is 137/72, respiratory rate is 18. Chest exam reveals diminished air entry at the bases. Heart exam reveals first and second heart sounds. There is an ejection systolic murmur in the aortic area. Abdomen is soft. Examination of extremities revealed bilateral moderate to severe pitting edema. Labs show a hemoglobin of 9.1. Platelet count is 190. Potassium is 3.7. BUN is 64, creatinine is 4.9. Current medications include amlodipine 10 daily, Lipitor 40 daily, Coreg, Catapres, Lasix drip, Apresoline, Isordil and Zaroxolyn. ASSESSMENT: 1. Acute exacerbation of chronic congestive heart failure. 2. End-stage renal failure. 3. Coronary artery disease, status post angioplasty. PLAN: Patient is to be started on dialysis, which I anticipate will help with his fluid overload. MMODL / IJN: [id number] /
--- NOTE | 2020-05-17 16:43 | P.GSCN ---
History of Present Illness History of present illness: 39-year-old -[place] male who is been admitted with history of acute chronic renal failure, diabetes mellitus, cardiomyopathy, patient had history of taking nonsteroidal anti-inflammatory agents in the form of Motrin. And was treated with Lasix drips and the I was consulted for placement of a dialysis catheter medical history history of type 1 diabetes mellitus hyper tension hist ory of [place] in the past patient had a pulses history had a cardiac catheterization coronary stent placed social nontender for smoking no colorectal drug abuse in the past Neck examination neck supple no bruit appreciated Chest is clear first and second sound normal Abdomen soft nontender Vascular brachial radial femoral pulses are present Plan is placement of a dialysis catheter risk and complication discussed Past Medical History Past Medical History: Heart Failure, Hypertension, Myocardial Infarction ([place]), Renal Disease Last Myocardial Infarction Date:: 03/30/2018 History of Any Multi-Drug Resistant Organisms: None Reported Past Surgical History: Heart Catheterization With Stent Date of Last Stent Placement:: 03/31/2018 Past Psychological History: No Psychological Hx Reported Smoking Status: Never smoker Past Alcohol Use History: None Reported Past Drug Use History: None Reported Medications and Allergies Home Medications Medication Instructions Recorded Confirmed Type Acetaminophen [Tylenol 8 Hour] 650 mg PO Q6H PRN 05/09/20 05/09/20 History Aspirin EC [Ecotrin Low Dose] 81 mg PO DAILY 05/09/20 05/09/20 History Atorvastatin [Lipitor] 40 mg PO DAILY 05/09/20 05/09/20 History Carvedilol [Coreg] 50 mg PO BID 05/09/20 05/09/20 History Furosemide [Lasix] 20 mg PO BID 05/09/20 05/09/20 History Insulin Glargine,Hum.rec.anlog 10 unit SQ HS 05/09/20 05/09/20 History [Lantus Solostar] Isosorbide Dinitrate [Isordil] 10 mg PO TID 05/09/20 05/09/20 History Nitroglycerin Sl Tabs [Nitrostat] 0.4 mg SUBLINGUAL Q5M PRN 05/09/20 05/09/20 History Ondansetron HCl [Zofran] 4 mg PO Q8H PRN 05/09/20 05/09/20 History Sesame Oil 4 cap PO DAILY 05/09/20 05/09/20 History Sodium Bicarbonate Tab 650 mg PO BID 05/09/20 05/09/20 History amLODIPine [Norvasc] 10 mg PO DAILY 05/09/20 05/09/20 History hydrALAZINE HCL [Apresoline] 100 mg PO TID 05/09/20 05/09/20 History Allergies Allergy/AdvReac Type Severity Reaction Status Date / Time No Known Allergies Allergy Verified 05/09/20 13:44 Surgical - Exam Vital Signs Temp Pulse Resp BP Pulse Ox 97.8 F 84 16 185/105 100 05/09/20 12:21 05/09/20 12:21 05/09/20 12:21 05/09/20 12:21 05/09/20 12:21 Results - Labs 05/17/20 05:57 05/17/20 05:57 Abnormal Lab Results - Last 24 Hours (Table) 05/16/20 05/16/20 05/17/20 Range/Units 17:17 20:51 05:57 WBC 3.5 L (3.8-10.6) k/uL RBC 2.94 L (4.30-5.90) m/uL Hgb 9.1 L (13.0-17.5) gm/dL Hct 28.5 L (39.0-53.0) % RDW 17.5 H (11.5-15.5) % Sodium (137-145) mmol/L BUN (9-20) mg/dL Creatinine (0.66-1.25) mg/dL Glucose (74-99) mg/dL POC Glucose (mg/dL) 179 H 202 H (75-99) mg/dL Calcium (8.4-10.2) mg/dL Phosphorus (2.5-4.5) mg/dL 05/17/20 05/17/20 05/17/20 Range/Units 05:57 06:03 12:20 WBC (3.8-10.6) k/uL RBC (4.30-5.90) m/uL Hgb (13.0-17.5) gm/dL Hct (39.0-53.0) % RDW (11.5-15.5) % Sodium 135 L (137-145) mmol/L BUN 64 H (9-20) mg/dL Creatinine 4.97 H (0.66-1.25) mg/dL Glucose 153 H (74-99) mg/dL POC Glucose (mg/dL) 166 H 141 H (75-99) mg/dL Calcium 8.1 L (8.4-10.2) mg/dL Phosphorus 5.1 H (2.5-4.5) mg/dL Diabetes panel 05/17/20 Range/Units 05:57 Sodium 135 L (137-145) mmol/L Potassium 3.7 (3.5-5.1) mmol/L Chloride 102 (98-107) mmol/L Carbon Dioxide 28 (22-30) mmol/L BUN 64 H (9-20) mg/dL Creatinine 4.97 H (0.66-1.25) mg/dL Glucose 153 H (74-99) mg/dL Calcium 8.1 L (8.4-10.2) mg/dL Calcium panel 05/17/20 Range/Units 05:57 Calcium 8.1 L (8.4-10.2) mg/dL Phosphorus 5.1 H (2.5-4.5) mg/dL Pituitary panel 05/17/20 Range/Units 05:57 Sodium 135 L (137-145) mmol/L Potassium 3.7 (3.5-5.1) mmol/L Chloride 102 (98-107) mmol/L Carbon Dioxide 28 (22-30) mmol/L BUN 64 H (9-20) mg/dL Creatinine 4.97 H (0.66-1.25) mg/dL Glucose 153 H (74-99) mg/dL Calcium 8.1 L (8.4-10.2) mg/dL Adrenal panel 05/17/20 Range/Units 05:57 Sodium 135 L (137-145) mmol/L Potassium 3.7 (3.5-5.1) mmol/L Chloride 102 (98-107) mmol/L Carbon Dioxide 28 (22-30) mmol/L BUN 64 H (9-20) mg/dL Creatinine 4.97 H (0.66-1.25) mg/dL Glucose 153 H (74-99) mg/dL Calcium 8.1 L (8.4-10.2) mg/dL
--- NOTE | 2020-05-17 16:47 | P.PCN ---
Description of Procedure: Preoperative diagnoses is acute chronic failure Postoperative same Procedure ultrasound-guided 23 same dialysis catheter placed right jugular approach Sedation time 3 minutes Procedure patient brought to the catheter lab draped applied sterile manner 1% lidocaine for infected with IV sedation ultrasound guided micropuncture needle right jugular vein. Then 4-Macedonian dilator advanced about top the guidewire and regular guidewire was passed which was parked at the inferior vena cava Tunnel was created through the terminal be brought 23 cm dialysis catheter under fluoroscopy control dilator advanced on postoperative guidewire and sheath was advanced on the top of the guidewire then dialysis catheter was introduced through the sheath and sheath was removed tip of the catheters 2. A vena cava and atrium junction flush with heparin saline and Hep-Lock secured with 3-0 Vicryl and nylon dressing applied patient are to the procedure well
[2020-05-17 17:00] LABS: Glucose,Whole Blood 119 mg/dL (75-99)
[2020-05-17 17:48] LABS: Ferritin 146.6 ng/mL (22.0-322.0)
[2020-05-17 17:51] LABS: Hepatitis B Surface AB- Quant 26.7 mIU/mL; Hepatitis B Surface Antibody Reactive (Non-Reactive)
[2020-05-17 17:53] LABS: % Iron Saturation 8.77 (15.00-50.00)
--- NOTE | 2020-05-17 18:23 | IR ---
Fluoroscopy HISTORY: Dialysis catheter placement 2 minutes fluoroscopy time supplied to the referring clinician. 61 intraoperative C-arm images docum ent the procedure. See dictated report from vascular surgery.
[2020-05-17 20:15] LABS: Glucose,Whole Blood 130 mg/dL (75-99)
[2020-05-17] MEDS: INSULIN DETEMIR (LEVEMIR) 100 UNIT/ML SYR SQ SCH (21:27)
[2020-05-18 06:17] LABS: Glucose,Whole Blood 114 mg/dL (75-99)
[2020-05-18 06:25] LABS: Calcium 8.3 mg/dL (8.4-10.2); Magnesium 1.9 mg/dL (1.6-2.3); Phosphorus 5.2 mg/dL (2.5-4.5); Potassium 3.5 mmol/L (3.5-5.1)
[2020-05-18] MEDS: FUROSEMIDE 100 MG in SODIUM CHLORIDE 0.9% 90 ML IV SCH (08:52)
[2020-05-18] MEDS: HEPARIN SODIUM,PORCINE 5,000 UNIT/ML 1 ML VIAL SQ SCH ×2 (09:03→20:30)
[2020-05-18] MEDS: ATORVASTATIN 40 MG TAB PO SCH (09:07)
[2020-05-18] MEDS: cloNIDine HCL 0.1 MG TAB PO SCH ×3 (09:07→20:31)
[2020-05-18] MEDS: hydrALAZINE HCL 50 MG TAB PO SCH ×3 (09:07→20:31)
[2020-05-18] MEDS: ISOSORBIDE DINITRATE 10 MG TAB PO SCH ×3 (09:07→20:31)
[2020-05-18] MEDS: amLODIPine 10 MG TAB PO SCH (09:08)
[2020-05-18] MEDS: metOLazone 5 MG TAB PO SCH (09:08)
[2020-05-18] MEDS: carvediloL 12.5 MG TAB PO SCH ×2 (09:08→17:43)
[2020-05-18] MEDS ORDERED: POTASSIUM CHLORIDE ER 20 MEQ TAB.ER PO STA (09:18)
--- NOTE | 2020-05-18 09:20 | P.PN ---
Subjective Patient is seen in follow-up for acute kidney injury. Patient was started on hemodialysis on May 17 due to severe volume overload. Tolerated 2 L ultrafiltration yesterday. Edema improving. Scheduled for kidney biopsy today. No chest pain or shortness of breath. Good urine output. Maintained on Lasix drip. Vital signs are stable. General: The patient appeared well nourished and normally developed. HEENT: Head exam is unremarkable. Neck is without jugular venous distension. LUNGS: Breath sounds decreased. HEART: Rate and Rhythm are regular. ABDOMEN: Soft, nontender. EXTREMITITES: 2+ edema. Objective - Vital Signs Vital signs: Vital Signs Temp 97.9 F 05/18/20 05:35 Pulse 75 05/18/20 05:35 Resp 16 05/18/20 05:35 BP 145/84 05/18/20 05:35 Pulse Ox 95 05/18/20 05:35 Intake & Output 05/17/20 05/18/20 05/18/20 18:59 06:59 18:59 Intake Total 190 100 Output Total 1350 Balance 190 -1350 100 Weight 97.4 kg Intake: Intake, IV Titration 100 100 Amount Furosemide 100 mg In 100 100 Sodium Chloride 0.9% 90 ml @ 10 MG/HR 10 mls/hr IV .Q10H [facility] Rx#: [id number] Oral 90 Output: Urine 1350 Other: Voiding Method Toilet # Voids 4 2 # Bowel Movements 1 - Labs CBC & Chem 7: 05/17/20 05:57 05/18/20 05:46 Labs: Abnormal Lab Results - Last 24 Hours (Table) 05/17/20 05/17/20 05/17/20 Range/Units 05:57 05:57 12:20 Sodium (137-145) mmol/L BUN (9-20) mg/dL Creatinine (0.66-1.25) mg/dL Glucose (74-99) mg/dL POC Glucose (mg/dL) 141 H (75-99) mg/dL Calcium (8.4-10.2) mg/dL Phosphorus (2.5-4.5) mg/dL Iron 20 L (65-175) ug/dL % Saturation 8.77 L (15.00-50.00) Hep Bs Antibody Reactive H (Non-Reactive) 05/17/20 05/17/20 05/18/20 Range/Units 16:59 20:13 05:46 Sodium 133 L (137-145) mmol/L BUN 54 H (9-20) mg/dL Creatinine 4.39 H (0.66-1.25) mg/dL Glucose 105 H (74-99) mg/dL POC Glucose (mg/dL) 119 H 130 H (75-99) mg/dL Calcium 8.3 L (8.4-10.2) mg/dL Phosphorus 5.2 H (2.5-4.5) mg/dL Iron (65-175) ug/dL % Saturation (15.00-50.00) Hep Bs Antibody (Non-Reactive) 05/18/20 Range/Units 06:16 Sodium (137-145) mmol/L BUN (9-20) mg/dL Creatinine (0.66-1.25) mg/dL Glucose (74-99) mg/dL POC Glucose (mg/dL) 114 H (75-99) mg/dL Calcium (8.4-10.2) mg/dL Phosphorus (2.5-4.5) mg/dL Iron (65-175) ug/dL % Saturation (15.00-50.00) Hep Bs Antibody (Non-Reactive) Assessment and Plan Plan: Assessment: 1. Acute kidney injury secondary to ATN due to cardiorenal syndrome. However can't rule out glomerulonephritis. Patient has nephrotic range proteinuria. Serologies have been negative. Unknown baseline renal function. Creatinine was 3.7 on admission and peaked at 4.97 this admission. Unknown baseline renal function. Started on hemodialysis May 17 due to severe volume overload. 2. Inguinal lymphadenopathy status post biopsy. 3. Hypertension with chronic kidney disease. Partially volume sensitive. Better. 4. Restrictive cardiomyopathy with concern for possible amyloidosis. 5. Volume overload. Improving with diuresis and ultrafiltration. 6. Acute systolic CHF with ejection fraction of 45-50% with moderate mitral regurgitation, severe tricuspid regurgitation and pulmonary hypertension. 7. Anemia of chronic kidney disease. Iron deficiency noted. Also received a dose of DDAVP on May 17. Plan: Second treatment of hemodialysis today and third treatment tomorrow. Discontinue Lasix drip. Start oral Lasix 80 mg twice daily. Low-salt diet and 1200 mL fluid restriction. Maintain current antihypertensives. Scheduled for kidney biopsy today. corporate quality manager to help facilitate outpatient hemodialysis set up. IV iron 3 doses. First dose today. Replace potassium.
[2020-05-18] MEDS ORDERED: HYDROmorphone 0.5 MG/0.5 ML SYRINGE IVP STA (10:33)
--- NOTE | 2020-05-18 11:13 | P.PN ---
Subjective Progress Note Date: 05/18/20 59-year-old start seen in the office recently moving from [place] to be close to his mother. Apparently was diagnosed with cardiomyopathy ischemic type with angiogram and angioplasty back in 2018 history of type 2 diabetes on medication and history of anasarca who was bothered by the severity of the swelling the edema with large swelling in the scrotum. Was seen on week early started on diuretics without any improvement patient had gained 5 pounds within 1 week despite being on furosemide. The blood pressure remained extremely high at the time being on 3 medication at the time with no respond. Patient was sent to the emergency department seen and evaluated found to be in acute kidney failure with severe anasarca and congestive heart failure with slight anemia as well with significant abnormal liver function test. Troponin was negative but his BNP was 69,000. Chest x-ray showed moderate enlargement of the cardiac silhouette correlate with pulmonary vascular congestion and trace of pulmonary edema was started on Lasix a drip admitted to the hospital will be seen cardiology and nephrology will continue to treat his anasarca. 05/10: Patient remains on the cardiac stepdown unit. He states he feels a little bit better from yesterday. He is scheduled to see nephrology and cardiology toeda graham. Ultrasound bilateral lower extremities negative for DVT. VQ scan echocardiogram are pending. Plan is to obtain lymph node biopsy. Discussed case with Dr. Hebert and she suggested undergoing CAT scan of the abdomen and pelvis first. She will be ruling out nephrotic syndrome. Previous lab work will be obtained. The patient states he was first diagnosed with diabetes at age 18 and was placed on insulin and Glucophage. 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 Cataract surgery on the right and retinal surgeries. Patient is afebrile, heart rate 72, blood pressure 185/96, pulse ox 97% on room air. Repeat blood work revealed WBC 4.3, hemoglobin 10, platelet count 272. BUN 35 and creatinine 3.90. Chloride 109, potassium 3.6, sodium 140. CO2 26. Blood sugars are running between 84 and 151. Total bilirubin 0.9, AST 40, ALT 62, alkaline phosphatase 720. Echocardiogram reveals EF of 45-50% with moderate mitral regurgitation, severe tricuspid regurgitation, severe pulmonary hypertension, moderate pulmonic regurgitation, large pleural effusion, small generalized pericardial effusion. Hepatitis panel negative. Coronavirus PCR not detected. 05/11: VQ scan was normal. CAT scan of the abdomen and pelvis without contrast revealed bilateral inguinal and suspected from oral lymphadenopathy. There does appear to be diffuse anasarca as well as increased density within the mesentery suggestive of mesenteric edema and a small amount of ascites which limits the exam. Consider post contrast exam for assessment of adenopathy. Bilateral pleural effusions. Gastric distention. Chronic cystitis. Consult has been added for Dr. Cox for biopsy of enlarged lymph node and this has been scheduled for tomorrow, patient has been continued on a Lasix drip. He denies any significant improvement continues to have lower extremity edema. He has been afebrile, heart rate 78, blood pressure 156/80, pulse ox 90% on room air. Repeat blood work reveals worsening renal function with BUN 35 and creatinine 4.28. Alkaline phosphatase 641. Reviewed laboratory studies from [facility]. Patient had a pericardial biopsy that showed mesothelial lined fibrous tissue with mild nonspecific chronic inflammation. No evidence of microorganisms. Creatinine at that facility was running 3.4-4.2. 05/12: Patient remains on the cardiac stepdown unit. He is scheduled for biopsy at 1:[address] Cox. Discussed in detail patient's results with the patient and his mother and discussed possible need for hemodialysis. He has been afebrile, heart rate 76, blood pressure 165/88, pulse ox 98% on room air. Repeat blood work revealed BUN 38 and creatinine 4.39. Blood sugars are running between 60 and 154. AST 51, ALT 51, alkaline phosphatase 676. Consult has been added for Dr. Lindsey regarding severe pulmonary hypertension. Patient is continued on Lasix drip. Nephrology is following with plan for kidney biopsy down the road. 05/13: Patient underwent lymph node biopsy yesterday, from the groin, pending results, patient scheduled to have kidney biopsy on Friday, no plans for dialysis at this time, edema is much better, however he still is edematous all o joseph, patient denies any chest pain or palpitations,no new dyspnea, hemoglobin is at 9.0, creatinine at 4.2 BUN of 41 potassium at 3.8, sugars are acceptable, alkaline phosphatase 643, withnormal ALT and AST, no cultures from any fluids, vitals arestable, with pulse ox 98% on room air, blood pressure ranges 155-170 systolic, no tachypnea tachycardia no melena and hematochezia. 05/14: Patient is without any new complaints today, still has edema, no shortness of breath at this year, no dysphagia, no chest pain or palpitations, vitals are stable, lymph node biopsy inguinal area still pending, patient is to have kidney biopsy as scheduled Friday, creatinine 4.6 BUN 47 potassium 3.9 hemoglobin 9.1 and double basic count 3.4, JOHANA negative, c-ANCA p-ANCA negative, transaminase noted slightly to be elevated, I'll: [id number], ALT 51 AST 64 05/15: Patient continues to have significant lower extremity edema, abdomen is softer today. His weight is down a total of 8 kg since admission. He seems to be less shortness of breath with minimal activity. He is off the Lasix drip and is currently on IV Lasix 60 mg every 12 hours. Lymph node biopsy site has serosanguineous drainage at the left groin. Dr. Cox has dressed the area. Biopsy report is pending. Consult with Dr. James was added on Friday and Dima level ordered. Patient is scheduled for possible kidney biopsy on Friday. Repeat lab work reveals hemoglobin 8.8, BUN 53 and creatinine 4.61. Blood sugars running between 134 160. Total bilirubin 1, AST 78, ALT 54, alkaline phosphatase 694. Mother is at bedside. 05/16: Yesterday, patient was resumed on a Lasix drip and has had a total loss of 10-1/2 kg since admission. He is also on low salt diet and 1200 mL fluid restriction. Lymph node biopsy report remains pending. He is scheduled for renal biopsy tomorrow. Patient has been afebrile, heart rate 70, blood pressure 152/76, pulse ox 100% on room air. Repeat blood work reveals WBC 2.9, hemoglobin 8.8. BUN 59 creatinine 4.92. Blood sugars running between 66 and 167. Alkaline phosphatase 698, total bilirubin 1.2, AST 77, ALT 65. Patient continues to have lower extremity edema. He denies chest pain or shortness of breath. Good urine output. 05/17: Patient remains on Lasix drip as started by nephrology. He continues to have lower extremity edema despite weight loss. Discussed case with Dr. Marcum and agreeable for dialysis. Consult placed with Dr. Crawford for permacath placement in the right IJ. Patient is been afebrile, heart rate 74, blood pressure 137/71, pulse ox 99% on room air. Repeat blood work reveals sodium 135, BUN 64 and creatinine 4.97. Hemoglobin 9.1, WBC 3.5. The patient is sched uled for renal biopsy which may be delayed until tomorrow. 05/18: Patient had right IJ placed with Dr. Crawford yesterday and patient started ultrafiltration yesterday 2 L. He has some improvement of edema. Patient is scheduled for hemodialysis today and also tomorrow. He is scheduled for renal biopsy this morning with radiology. He is currently on Solu-Medrol 40 mg IV every 12 hours. Lasix 40 mg IV every day transition to oral 80 mg twice daily by nephrology. He has been afebrile, heart rate 75, blood pressure 145/84, pulse ox 95% on room air. Sodium 133, potassium 3.5, chloride 98, CO2 29, BUN 54 and creatinine 4.39. Blood sugars running between 105 and 130. Patient's mother is at the bedside no questions have been answered. Anticipate possible discharge home by tomorrow. Lymph node biopsy report is pending. Review of Systems CONSTITUTIONAL: Well-developed no shortness of breath while at rest no cough or wheezes. No fever. No chills. EYES: No icterus sclerae, no conjunctivitis. EARS, NOSE, MOUTH, THROAT, and FACE: No sore throat, lymphadenopathy, carotid bruits or deformity. RESPIRATORY: Denies shortness of breath at rest. CARDIOVASCULAR: Has a PND orthopnea and angina with significant anasarca and edema. GASTROINTESTINAL: No Abd pain, Nausea or vomiting, no Diarrhea or constipation, No GI Bleed, no distention or masses. GENITOURINARY: Negative for Hematuria or UTI, no kidney stones. Swelling in the scrotum fluid retention. INTEGUMENT/BREAST: Negative for any muscular injury with mild osteoarthritis. Significant edema lower extremity. HEMATOLOGIC/LYMPHATIC: Negative for bleed or purpura. MUSCULOSKELTAL: Negative for Myalgia or arthralgia. NEURLOGICAL: No LOC, Sz or syncope, blurred vision dizziness or abnormality. BEHAVIORAL/PSYCH: Negative. ENDOCRINE: Negative. Physical Examination General Appearance: Alert, cooperative, no distress, appears stated age. Patient appears to be in no acute distress. Mother is at bedside. Neck HEENT: Supple, no lymphadenopathy, no thyroid enlargement, no carotid bruit s. Lungs: Decreased expansion with deep inspiration positive for rhonchi with mild crackles in the bases with mild expiratory wheezes. Chest Wall: Decrease expansion with deep inspiration no tenderness and no deformity was found on exam, no costochondral pain or discomfort. Heart: Regular rate and rhythm, S1, S2 +3 positive JVD Back: Symmetric, no curvature, ROM normal, no CVA tenderness. Abdomen: Soft, non-tender, bowel sounds active all four quadrants, slight hepatomegaly with significant anasarca and abdominal wall area. Extremities: 2+ edema bilaterally with slight discoloration from the knee down. Pulses: 2+ and symmetric. Skin: Skin color, texture, tugor normal, no rashes or lesions. Neurologic: Alert oriented x3 cranial nerves II through XII intact, no motor deficit, no abnormal balance or gait. Assessment and Plan 1. Acute on chronic diastolic heart failure. Continue Lasix oral 80 mg twice daily, monitor daily weight, electrolytes and renal function. Consults with cardiology and nephrology appreciated. Groin lymph node biopsy report is pending. Renal biopsy planned for today. 2 restrictive cardiomyopathy, amyloidosis with generalized anasarca. Continue diuresing. 3 acute kidney injury with chronic kidney disease stage IV. Normal ultrasound of the kidneys. Nephrology consult appreciated. Consult with Dr. Crawford has placed permacath placement and patient has been started on dialysis. Renal biopsy scheduled for today. 4 advance CAD: Post angioplasty and stent placement in 2018 patient was seen cardiology and apparently had more blockage with no angiogram lately. 5 acute anemia due to chronic kidney disease 6 abnormal liver function test. Hepatitis panel negative. 7 hyperlipidemia: Has been on atorvastatin 40 mg a day. 8 advanced noncontrolled hypertension. Continue Norvasc 10 mg daily, Catapres scheduled 3 times daily and as needed, hydralazine 100 mg 3 times daily, metolazone 5 mg daily, Coreg 25 mg twice daily. 9 type 2 diabetes: On insulin, patient remain on Lantus and Humalog continue Acc u-Chek with sliding scales coverage. A1c is 6.4. 10 Valvular heart disease with moderate mitral regurgitation, severe tricuspid regurgitation, moderate pulmonary regurgitation. 11 severe pulmonary hypertension. 12 GERD/GI prophylaxis: Continue pantoprazole. 13 DVT prophylaxis: heparin 5000 units subcutaneous twice a day. 14 COVID-19 infection not present. CODE STATUS: Full code. Discharge plan: home Impression and plan of care have been directed as dictated by the signing physician. Paige Muir nurse practitioner acting as scribe for signing physician. Objective - Vital Signs Vital signs: Vital Signs Temp 97.9 F 05/18/20 05:35 Pulse 75 05/18/20 05:35 Resp 16 05/18/20 05:35 BP 145/84 05/18/20 05:35 Pulse Ox 95 05/18/20 05:35 Intake & Output 05/17/20 05/18/20 05/18/20 18:59 06:59 18:59 Intake Total 190 100 Output Total 1350 Balance 190 -1350 100 Weight 97.4 kg Intake: Intake, IV Titration 100 100 Amount Furosemide 100 mg In 100 100 Sodium Chloride 0.9% 90 ml @ 10 MG/HR 10 mls/hr IV .Q10H [facility] Rx#: [id number] Oral 90 Output: Urine 1350 Other: Voiding Method Toilet # Voids 4 2 # Bowel Movements 1 - Labs CBC & Chem 7: 05/17/20 05:57 05/18/20 05:46 Labs: Abnormal Lab Results - Last 24 Hours (Table) 05/17/20 05/17/20 05/17/20 Range/Units 05:57 05:57 12:20 Sodium (137-145) mmol/L BUN (9-20) mg/dL Creatinine (0.66-1.25) mg/dL Glucose (74-99) mg/dL POC Glucose (mg/dL) 141 H (75-99) mg/dL Calcium (8.4-10.2) mg/dL Phosphorus (2.5-4.5) mg/dL Iron 20 L (65-175) ug/dL % Saturation 8.77 L (15.00-50.00) Hep Bs Antibody Reactive H (Non-Reactive) 05/17/20 05/17/20 05/18/20 Range/Units 16:59 20:13 05:46 Sodium 133 L (137-145) mmol/L BUN 54 H (9-20) mg/dL Creatinine 4.39 H (0.66-1.25) mg/dL Glucose 105 H (74-99) mg/dL POC Glucose (mg/dL) 119 H 130 H (75-99) mg/dL Calcium 8.3 L (8.4-10.2) mg/dL Phosphorus 5.2 H (2.5-4.5) mg/dL Iron (65-175) ug/dL % Saturation (15.00-50.00) Hep Bs Antibody (Non-Reactive) 05/18/20 Range/Units 06:16 Sodium (137-145) mmol/L BUN (9-20) mg/dL Creatinine (0.66-1.25) mg/dL Glucose (74-99) mg/dL POC Glucose (mg/dL) 114 H (75-99) mg/dL Calcium (8.4-10.2) mg/dL Phosphorus (2.5-4.5) mg/dL Iron (65-175) ug/dL % Saturation (15.00-50.00) Hep Bs Antibody (Non-Reactive)
[2020-05-18 11:54] LABS: Glucose,Whole Blood 88 mg/dL (75-99)
--- NOTE | 2020-05-18 11:54 | P.OP ---
Date of Procedure: 05/18/20 Preoperative Diagnosis: acute on chronic renal failure Postoperative Diagnosis: same Procedure(s) Performed: CT-guided renal parenchymal biopsy Implants: none Anesthesia: local Surgeon: Mackenzie Freeman Estimated Blood Loss (ml): 5 Pathology: other (3 18G cores sent to pathology) Condition: stable Disposition: floor
[2020-05-18] MEDS: SODIUM FERRIC GLUCONAT-SUCROSE 125 MG in SODIUM CHLORIDE 0.9% 100 ML IVPB SCH (11:55)
[2020-05-18 15:15] VITALS: BMI 29.1
--- NOTE | 2020-05-18 15:57 | CT ---
EXAMINATION TYPE: CT biopsy renal RT DATE OF EXAM: 05/18/2020 HISTORY: Acute on chronic renal failure COMPARISON: PET/CT 04/14/2020, CTA chest 02/18/2020. TRUST ADVISOR: Dr. Mackenzie Freeman. Informed consent was obtained by Dr. Mackenzie Freeman prior to procedure. Preliminary CT imaging demonstrated unremarkable nonenhanced appearance of the bilateral kidneys with no evidence of hydronephrosis. The skin overlying a suitable path to the right kidney was localized using CT and the overlying skin was prepped and draped utilizing maximal barrier technique. Lidocaine used for local anesthesia. A small skin eagle was made with a scalpel. Using CT guidance, access was gained to the lesion with a 18-gauge coaxial core biopsy needle. 3 18-gauge core biopsy specimen(s) s ubmitted for histopathology. 3 pass(es) performed in all. The hub of the introducer needle was placed partway out of the introducer for 5 minutes to achieve hemostasis. The hub was advanced, subsequentl y removed with no evidence of backbleeding, and all needles were removed. Sterile bandage was applied . Postprocedure CT imaging demonstrated no evidence of significant hemorrhage. Patient tolerated proced ure well with no immediate complications. Patient is discharged in stable condition. IMPRESSION: SUCCESSFUL CT GUIDED RIGHT RENAL PARENCHYMAL 18G CORE BIOPSY. PATHOLOGY PENDING.
[2020-05-18 16:52] LABS: Glucose,Whole Blood 156 mg/dL (75-99)
[2020-05-18] MEDS: FUROSEMIDE 80 MG TAB PO SCH (17:43)
[2020-05-18 20:36] LABS: Glucose,Whole Blood 213 mg/dL (75-99)
[2020-05-18] MEDS: INSULIN DETEMIR (LEVEMIR) 100 UNIT/ML SYR SQ SCH (20:36)
[2020-05-19 06:07] LABS: Glucose,Whole Blood 62 mg/dL (75-99)
[2020-05-19 06:32] LABS: Glucose,Whole Blood 65 mg/dL (75-99)
[2020-05-19 06:32] LABS: Glucose,Whole Blood 66 mg/dL (75-99)
[2020-05-19] MEDS: carvediloL 12.5 MG TAB PO SCH ×2 (06:38→18:51)
[2020-05-19 06:58] LABS: Glucose,Whole Blood 110 mg/dL (75-99)
[2020-05-19 08:18] LABS: Magnesium 1.9 mg/dL (1.6-2.3); Potassium 3.5 mmol/L (3.5-5.1)
[2020-05-19 08:20] VITALS: TEMP 97.4
[2020-05-19] MEDS: ATORVASTATIN 40 MG TAB PO SCH (08:29)
[2020-05-19] MEDS: cloNIDine HCL 0.1 MG TAB PO SCH ×2 (08:29→18:51)
[2020-05-19] MEDS: HEPARIN SODIUM,PORCINE 5,000 UNIT/ML 1 ML VIAL SQ SCH (08:29)
[2020-05-19] MEDS: hydrALAZINE HCL 50 MG TAB PO SCH ×2 (08:29→18:51)
[2020-05-19] MEDS: amLODIPine 10 MG TAB PO SCH (08:29)
[2020-05-19] MEDS: FUROSEMIDE 80 MG TAB PO SCH ×2 (08:29→18:51)
[2020-05-19] MEDS: metOLazone 5 MG TAB PO SCH (08:30)
[2020-05-19] MEDS: ISOSORBIDE DINITRATE 10 MG TAB PO SCH ×2 (08:30→18:52)
[2020-05-19] MEDS: SODIUM FERRIC GLUCONAT-SUCROSE 125 MG in SODIUM CHLORIDE 0.9% 100 ML IVPB SCH (09:16)
--- NOTE | 2020-05-19 09:36 | P.DS ---
Providers Date of admission: 05/09/20 14:11 Expected date of discharge: 05/19/20 Attending physician: Jj Galindo Consults: 05/09/20 14:01 Consult Physician Routine Consulting Provider: Jasen Lara Consult Reason/Comments: borderline troponin, CHF Do you want consulting provider notified?: Yes Consult Physician Routine Consulting Provider: Laura Hebert Consult Reason/Comments: kidney failure, low albumin, b/l LE edema Do you want consulting provider notified?: Yes 05/11/20 08:39 Consult Physician Routine Consulting Provider: Krish Cox Consult Reason/Comments: bx lymph node groin for systemic disorder Do you want consulting provider notified?: Yes 05/12/20 09:13 Consult Physician Routine Consulting Provider: Meghan Lindsey Consult Reason/Comments: severe pulmonary htn Do you want consulting provider notified?: Yes 05/12/20 12:01 Consult Physician Stat Consulting Provider: Jj Etienne Consult Reason/Comments: kidney biopsy Do you want consulting provider notified?: Already Contacted 05/17/20 08:29 Consult Physician Routine Consulting Provider: Thai Crawford Consult Reason/Comments: RIJ permacath insertion Do you want consulting provider notified?: Yes Primary care physician: Jj Galindo [facility] Course: 59-year-old start seen in the office recently moving from [place] to be close to his mother. Apparently was diagnosed with cardiomyopathy ischemic type with angiogram and angioplasty back in 2018 history of type 2 diabetes on medication and history of anasarca who was bothered by the severity of the swelling the edema with large swelling in the scrotum. Was seen on week early started on diuretics without any improvement patient had gained 5 pounds within 1 week despite being on furosemide. The blood pressure remained extremely high at the time being on 3 medication at the time with no respond. Patient was sent to the emergency department seen and evaluated found to be in acute kidney failure with severe anasarca and congestive heart failure with slight anemia as well with significant abnormal liver function test. Troponin was negative but his BNP was 69,000. Chest x-ray showed moderate enlargement of the cardiac silhouette correlate with pulmonary vascular congestion and trace of pulmonary edema was started on Lasix a drip admitted to the hospital will be seen cardiology and nephrology will continue to treat his anasarca. 05/10: Patient remains on the cardiac stepdown unit. He states he feels a little bit better from yesterday. He is scheduled to see nephrology and cardiology today. Ultrasound bilateral lower extremities negative for DVT. VQ scan echocardiogram are pending. Plan is to obtain lymph node biopsy. Discussed case with Dr. Hebert and she suggested undergoing CAT scan of the abdomen and pel vis first. She will be ruling out nephrotic syndrome. Previous lab work will be obtained. The patient states he was first diagnosed with diabetes at age 18 and was placed on insulin and Glucophage. 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 Cataract surgery on the right and retinal surgeries. Patient is afebrile, heart rate 72, blood pressure 185/96, pulse ox 97% on room air. Repeat blood work revealed WBC 4.3, hemoglobin 10, platelet count 272. BUN 35 and creatinine 3.90. Chloride 109, potassium 3.6, sodium 140. CO2 26. Blood sugars are running between 84 and 151. Total bilirubin 0.9, AST 40, ALT 62, alkaline phosphatase 720. Echocardiogram reveals EF of 45-50% with moderate mitral regurgitation, severe tricuspid regurgitation, severe pulmonary hypertension, moderate pulmonic regurgitation, large pleural effusion, small generalized pericardial effusion. Hepatitis panel negative. Coronavirus PCR not detected. 05/11: VQ scan was normal. CAT scan of the abdomen and pelvis without contrast revealed bilateral inguinal and suspected from oral lymphadenopathy. There does appear to be diffuse anasarca as well as increased density within the mesentery suggestive of mesenteric edema and a small amount of ascites which limits the exam. Consider post contrast exam for assessment of adenopathy. Bilateral pleural effusions. Gastric distention. Chronic cystitis. Consult has been added for Dr. Cox for biopsy of enlarged lymph node and this has been scheduled for tomorrow, patient has been continued on a Lasix drip. He denies any significant improvement continues to have lower extremity edema. He has been afebrile, heart rate 78, blood pressure 156/80, pulse ox 90% on room air. Repeat blood work reveals worsening renal function with BUN 35 and creatinine 4.28. Alkaline phosphatase 641. Reviewed laboratory studies from [facility] in [facility]. Patient had a pericardial biopsy that showed mesothelial lined fibrous tissue with mild nonspecific chronic inflammation. No evidence of microorganisms. Creatinine at that facility was running 3.4-4.2. 05/12: Patient remains on the cardiac stepdown unit. He is scheduled for biopsy at 1:[address] Cox. Discussed in detail patient's results with the patient and his mother and discussed possible need for hemodialysis. He has been afebrile, heart rate 76, blood pressure 165/88, pulse ox 98% on room air. Repeat blood work revealed BUN 38 and creatinine 4.39. Blood sugars are running between 60 and 154. AST 51, ALT 51, alkaline phosphatase 676. Consult has been added for Dr. Lindsey regarding severe pulmonary hypertension. Patient is continued on Lasix drip. Nephrology is following with plan for kidney biopsy down the road. 05/13: Patient underwent lymph node biopsy yesterday, from the groin, pending results, patient scheduled to have kidney biopsy on Friday, no plans for dialysis at this time, edema is much better, however he still is edematous all over, patient denies any chest pain or palpitations,no new dyspnea, hemoglobin is at 9.0, creatinine at 4.2 BUN of 41 potassium at 3.8, sugars are acceptable, alkaline phosphatase 643, withnormal ALT and AST, no cultures from any fluids, vitals arestable, with pulse ox 98% on room air, blood pressure ranges 155-170 systolic, no tachypnea tachycardia no melena and hematochezia. 05/14: Patient is without any new complaints today, still has edema, no shortness of breath at this year, no dysphagia, no chest pain or palpitations, vitals are stable, lymph node biopsy inguinal area still pending, patient is to have kidney biopsy as scheduled Friday, creatinine 4.6 BUN 47 potassium 3.9 hemoglobin 9.1 and double basic count 3.4, JOHANA negative, c-ANCA p-ANCA negative, transaminase noted slightly to be elevated, I'll: [id number], ALT 51 AST 64 05/15: Patient continues to have significant lower extremity edema, abdomen is softer today. His weight is down a total of 8 kg since admission. He seems to be less shortness of breath with minimal activity. He is off the Lasix drip and is currently on IV Lasix 60 mg every 12 hours. Lymph node biopsy site has serosanguineous drainage at the left groin. Dr. Cox has dressed the area. Biopsy report is pending. Consult with Dr. James was added on Friday and Dima level ordered. Patient is scheduled for possible kidney biopsy on Friday. Repeat lab work reveals hemoglobin 8.8, BUN 53 and creatinine 4.61. Blood sugars running between 134 160. Total bilirubin 1, AST 78, ALT 54, alkaline phosphatase 694. Mother is at bedside. 05/16: Yesterday, patient was resumed on a Lasix drip and has had a total loss of 10-1/2 kg since admission. He is also on low salt diet and 1200 mL fluid restriction. Lymph node biopsy report remains pending. He is scheduled for renal biopsy tomorrow. Patient has been afebrile, heart rate 70, blood pressure 152/76, pulse ox 100% on room air. Repeat blood work reveals WBC 2.9, hemoglobin 8.8. BUN 59 creatinine 4.92. Blood sugars running between 66 and 167. Alkaline phosphatase 698, total bilirubin 1.2, AST 77, ALT 65. Patient continues to have lower extremity edema. He denies chest pain or shortness of breath. Good urine output. 05/17: Patient remains on Lasix drip as started by nephrology. He continues to have lower extremity edema despite weight loss. Discussed case with Dr. Marcum and agreeable for dialysis. Consult placed with Dr. Crawford for permacath placement in the right IJ. Patient is been afebrile, heart rate 74, blood pressure 137/71, pulse ox 99% on room air. Repeat blood work reveals sodium 135, BUN 64 and creatinine 4.97. Hemoglobin 9.1, WBC 3.5. The patient is scheduled for renal biopsy which may be delayed until tomorrow. 05/18: Patient had right IJ placed with Dr. Crawford yesterday and patient started ultrafiltration yesterday 2 L. He has some improvement of edema. Patient is scheduled for hemodialysis today and also tomorrow. He is scheduled for renal biopsy this morning with radiology. He is currently on Solu-Medrol 40 mg IV every 12 hours. Lasix 40 mg IV every day transition to oral 80 mg twice daily by nephrology. He has been afebrile, heart rate 75, blood pressure 145/84, pulse ox 95% on room air. Sodium 133, potassium 3.5, chloride 98, CO2 29, BUN 54 and creatinine 4.39. Blood sugars running between 105 and 130. Patient's mother is at the bedside no questions have been answered. Anticipate possible discharge home by tomorrow. Lymph node biopsy report is pending. 05/19: Left inguinal lymph node biopsy revealed prominent sinus histiocytosis and plasmacytosis, final characterization pending consultation. While the notice favored to be benign, but plasma cell proliferation is unusual and raises concern for the possibility of plasma cell variant of Castleman's disease versus IgG for deficiency disease, benign plasmacytosis or other reactive lymphoproliferative process. Hodgkin's disease or plasmacytoma remain within the differential but are less likely. Case referred for expert consultation to the [facility]. Patient states that he still has some oozing from the groin site for which we will ask Dr. Cox to reevaluate. Patient also underwent renal biopsy yesterday with interventional radiology. Patient has been afebrile, heart rate 69, blood pressure 151/82, pulse ox 100% on room air. Patient is currently on Lasix 80 mg oral twice daily. Repeat blood work reveals sodium 132, potassium 3.5, chloride 98, CO2 29, BUN 41 and creatinine 3.76, blood sugar running between 62 and 126. Patient is on a Friday schedule for hemodialysis. Arrangements have been made for him at [facility] starting on Friday. Patient is scheduled for hemodialysis today. Plan to discharge patient home once dialysis is completed today. Assessment and Plan 1. Acute on chronic diastolic heart failure. 2. Restrictive cardiomyopathy, amyloidosis with generalized anasarca. 3. Acute kidney injury with chronic kidney disease stage IV. 4. Advanced CAD, status post angioplasty and stent placement in 2018. 5. Acute anemia due to chronic kidney disease. 6. Abnormal liver function test. 7. Hyperlipidemia 8. Advanced noncontrolled hypertension. 9. Type 2 diabetes, insulin requiring, uncontrolled with hyperglycemia and hypoglycemia. A1c is 6.4. 10. Valvular heart disease with moderate mitral regurgitation, severe tricuspid regurgitation, moderate pulmonary regurgitation. 11. Severe pulmonary hypertension. 12. GERD. 13. COVID-19 infection not present. Discharge plan: home Impression and plan of care have been directed as dictated by the signing physician. Paige Muir nurse practitioner acting as scribe for signing physician. Patient Condition at Discharge: Good Plan - Discharge Summary Discharge Rx Participant: No New Discharge Prescriptions: New cloNIDine HCL [Catapres] 0.3 mg PO TID #90 tab cloNIDine HCL [Catapres] 0.1 mg PO DAILY PRN #30 tab PRN Reason: Blood Pressure - High Furosemide [Lasix] 80 mg PO BID@0900,1600 #60 tab metOLazone [Zaroxolyn] 5 mg PO DAILY #30 tab Continue Aspirin EC [Ecotrin Low Dose] 81 mg PO DAILY Atorvastatin [Lipitor] 40 mg PO DAILY Acetaminophen [Tylenol 8 Hour] 650 mg PO Q6H PRN PRN Reason: Pain Or Fever > 100.5 Ondansetron HCl [Zofran] 4 mg PO Q8H PRN PRN Reason: Nausea And Vomiting Insulin Glargine,Hum.rec.anlog [Lantus Solostar] 10 unit SQ HS hydrALAZINE HCL [Apresoline] 100 mg PO TID amLODIPine [Norvasc] 10 mg PO DAILY Isosorbide Dinitrate [Isordil] 10 mg PO TID Sesame Oil 4 cap PO DAILY Nitroglycerin Sl Tabs [Nitrostat] 0.4 mg SUBLINGUAL Q5M PRN PRN Reason: Chest Pain Changed Carvedilol [Coreg] 25 mg PO BID #0 Discontinued Sodium Bicarbonate Tab 650 mg PO BID Furosemide [Lasix] 20 mg PO BID Discharge Medication List Acetaminophen [Tylenol 8 Hour] 650 mg PO Q6H PRN 05/09/20 [History] Aspirin EC [Ecotrin Low Dose] 81 mg PO DAILY 05/09/20 [History] Atorvastatin [Lipitor] 40 mg PO DAILY 05/09/20 [History] Insulin Glargine,Hum.rec.anlog [Lantus Solostar] 10 unit SQ HS 05/09/20 [History] Isosorbide Dinitrate [Isordil] 10 mg PO TID 05/09/20 [History] Nitroglycerin Sl Tabs [Nitrostat] 0.4 mg SUBLINGUAL Q5M PRN 05/09/20 [History] Ondansetron HCl [Zofran] 4 mg PO Q8H PRN 05/09/20 [History] Sesame Oil 4 cap PO DAILY 05/09/20 [History] amLODIPine [Norvasc] 10 mg PO DAILY 05/09/20 [History] hydrALAZINE HCL [Apresoline] 100 mg PO TID 05/09/20 [History] Carvedilol [Coreg] 25 mg PO BID #0 05/19/20 [Rx] Furosemide [Lasix] 80 mg PO BID@0900,1600 #60 tab 05/19/20 [Rx] cloNIDine HCL [Catapres] 0.1 mg PO DAILY PRN #30 tab 05/19/20 [Rx] cloNIDine HCL [Catapres] 0.3 mg PO TID #90 tab 05/19/20 [Rx] metOLazone [Zaroxolyn] 5 mg PO DAILY #30 tab 05/19/20 [Rx] Follow up Appointment(s)/Referral(s): Chato Bennett [place] [NON-STAFF] - 05/22/20 2:00 pm (Chair time is Friday, Friday and Fridays at 2:30PM. Please arrive at 2:00PM on your 1st treatment day. Thank you!) Jj Galindo MD [Primary Care Provider] - 1 Week Karie Marcum MD [REFERRING] - 1 Week Patient Instructions/Handouts: Dialysis Diet (DC) Discharge Disposition: HOME SELF-CARE
[2020-05-19] MEDS ORDERED: LIDOCAINE 1% INJ 10MG/ML (20 ML MDV) SQ ONE (09:56)
--- NOTE | 2020-05-19 10:29 | P.PN ---
Subjective Patient is seen in follow-up for acute kidney injury. Patient was started on hemodialysis on May 17 due to severe volume overload. Edema improved. Status post kidney biopsy yesterday. No chest pain or shortness of breath. Good urine output. Maintained on oral Lasix. Vital signs are stable. General: The patient appeared well nourished and normally developed. HEENT: Head exam is unremarkable. Neck is without jugular venous distension. LUNGS: Breath sounds decreased. HEART: Rate and Rhythm are regular. ABDOMEN: Soft, nontender. EXTREMITITES: 2+ edema. Objective - Vital Signs Vital signs: Vital Signs Temp 97.4 F L 05/19/20 08:00 Pulse 69 05/19/20 08:00 Resp 16 05/19/20 08:00 BP 151/82 05/19/20 08:00 Pulse Ox 100 05/19/20 08:00 Intake & Output 05/18/20 05/19/20 05/19/20 18:59 06:59 18:59 Intake Total 320 400 Output Total 200 600 Balance 120 -200 Weight 97.4 kg 87.1 kg Intake: Intake, IV Titration 200 Amount Furosemide 100 mg In 100 Sodium Chloride 0.9% 90 ml @ 10 MG/HR 10 mls/hr IV .Q10H KATHERINE Rx#: [id number] Sodium Ferric Gluconat- 100 Sucrose 125 mg In Sodium Chloride 0.9% 100 ml @ 100 mls/hr IVPB DAILY KATHERINE Rx#:[id number] Oral 120 400 Output: Urine 200 600 Other: # Voids 1 1 - Labs CBC & Chem 7: 05/17/20 05:57 05/19/20 07:24 Labs: Abnormal Lab Results - Last 24 Hours (Table) 05/18/20 05/18/20 05/19/20 Range/Units 16:44 20:35 06:06 Sodium (137-145) mmol/L BUN (9-20) mg/dL Creatinine (0.66-1.25) mg/dL Glucose (74-99) mg/dL POC Glucose (mg/dL) 156 H 213 H 62 L (75-99) mg/dL Calcium (8.4-10.2) mg/dL 05/19/20 05/19/20 05/19/20 Range/Units 06:30 06:31 06:50 Sodium (137-145) mmol/L BUN (9-20) mg/dL Creatinine (0.66-1.25) mg/dL Glucose (74-99) mg/dL POC Glucose (mg/dL) 66 L 65 L 110 H (75-99) mg/dL Calcium (8.4-10.2) mg/dL 05/19/20 Range/Units 07:24 Sodium 132 L (137-145) mmol/L BUN 41 H (9-20) mg/dL Creatinine 3.76 H (0.66-1.25) mg/dL Glucose 126 H (74-99) mg/dL POC Glucose (mg/dL) (75-99) mg/dL Calcium 8.0 L (8.4-10.2) mg/dL Assessment and Plan Plan: Assessment: 1. Acute kidney injury secondary to ATN due to cardiorenal syndrome. However can't rule out glomerulonephritis. Patient has nephrotic range proteinuria. Serologies have been negative. Unknown baseline renal function. Creatinine was 3.7 on admission and peaked at 4.97 this admission. Started on hemodialysis May 17 due to severe volume overload. 2. Inguinal lymphadenopathy status post biopsy. 3. Hypertension with chronic kidney disease. Partially volume sensitive. Stable. 4. Restrictive cardiomyopathy with concern for possible amyloidosis. 5. Volume overload. Improving with diuresis and ultrafiltration. 6. Acute systolic CHF with ejection fraction of 45-50% with moderate mitral regurgitation, severe tricuspid regurgitation and pulmonary hypertension. 7. Anemia of chronic kidney disease. Iron deficiency noted. Also received a dose of DDAVP on May 17. Plan: Third treatment of hemodialysis today. He will be maintained on Friday schedule outpatient at [facility]. Maintain Lasix 80 mg orally twice daily. Low-salt diet and 1200 mL fluid restriction. Maintain current antihypertensives. Kidney biopsy results pending. Maintain IV iron. Second dose today. Stable for discharge from nephrology standpoint.
--- NOTE | 2020-05-19 12:06 | P.PN ---
Progress Note - Text Progress Note Date: 05/19/20 Asked to evaluate the previous incision site from the lymph node biopsy as the patient continues to have serous drainage. This is secondary to the anasarca and overall edema. The incision area was prepped in regular sterile fashion. Multiple interrupted 3-0 nylon sutures were placed on the incision site. There did not appear to be any additional active serous drainage. Patient tolerated the procedure well. Dressing was applied. Krish Cox DO
[2020-05-19 12:11] LABS: Glucose,Whole Blood 139 mg/dL (75-99)
--- NOTE | 2020-05-19 15:24 | PN ---
PROGRESS NOTE Reggie is a 39-year-old gentleman who was admitted to hospital with renal failure and underwent a biopsy yesterday. He is currently being dialyzed and there has been significant improvement in his symptoms since the dialysis had been started. Blood pressure is 150/80, respiratory rate is 16. Chest exam reveals good air entry bilaterally. Heart exam reveals first and second heart sounds. S4 is heard. Abdomen is soft. Exam of extremities reveals bilateral pitting edema. LABS: Show a BUN of 41, creatinine of 0.76. ASSESSMENT: 1. Chronic renal failure on hemodialysis. 2. Hypertension. 3. Coronary artery disease, status post angioplasty. PLAN: Patient will continue current medications include Lasix 80 b.i.d., Zaroxolyn, Isordil, Apresoline 100 t.i.d., Lipitor 40 q. daily, Norvasc 10 q. daily, Coreg 25 b.i.d. and Catapres. Arrange follow up with Dr. Martines on discharge. MMODL / IJN: [id number] /
[2020-05-19 16:53] LABS: Glucose,Whole Blood 186 mg/dL (75-99)
[2020-05-19] MEDS ORDERED: CHOLESTYRAMINE (WITH SUGAR) 4 GM PACKET PO SCH (17:00)
[2020-05-19 19:39] VITALS: BP 154/88; PULSE 68; RESP 18
--- NOTE | 2020-05-21 15:45 | CDI ---
Documentation Clarification Form Date: 05/21/20 From: Janelle Batista Phone: If you have a question about this query, please contact Nicole Omalley, Instructor [employer] Dancing at [phone] between 8am and 5pm. Admit Date: 05/09/20 Discharge Date:05/19/20 Patient Name: Visit Number: ATTENTION: The Clinical Documentation Specialists (CDI) and [facility] Coding Staff appreciate your assistance in clarifying documentation. Please respond to the clarification below the line at the bottom and electronically sign. The CDI & [facility] Coding staff will review the response and follow-up if needed. Please note: Queries are made part of the Legal Health Record. If you have any questions, please contact the author of this message via ITS. Dear Dr. Galindo The patient presented with the following: elevated blood pressure. Dr. Hebert documented uncontrolled hypertension in the 05/10 consult note. 05/15 & 05/16 cardiology notes stated uncontrolled hypertension. History/Risk Factors: Acute on chronic diastolic CHF, ATN, hypertension Clinical Indicators: Elevated blood pressure Vital Signs: T. 97.8, P. 84, R 16, BP 185/105 Blood pressure: 05/09/20 - 185/105, 189/123, 189/123, 201/139, 211/136, 217/122, 205/134, 235/150 Treatment: Hydralazine 100 mg tid, amlodipine 5 mg bid, furosemide, aldactone, atenolol 20 mg bid In your professional opinion, can you please clarify the uncontrolled hypertension? Emergency XX Urgency Crisis Other, please specify Unable to determine MTDD
--- NOTE | 2020-06-01 14:51 | CDI ---
Documentation Clarification Form Date: 06/01/20 From: Janelle Batista Phone: If you have a question about this query, please contact Nicole Omalley, [employer] at [phone] between 8am and 5pm. Admit Date: 05/09/20 Discharge Date:05/19/20 Patient Name: Reggie Aceves II Visit Number: [id number] ATTENTION: The Clinical Documentation Specialists (CDI) and [facility] Coding Staff appreciate your assistance in clarifying documentation. Please respond to the clarification below the line at the bottom and electronically sign. The CDI & [facility] Coding staff will review the response and follow-up if needed. Please note: Queries are made part of the Legal Health Record. If you have any questions, please contact the author of this message via ITS. Dear Dr. Galindo The final diagnosis of the renal biopsy pathology report states: Nodular diabetic glomerulosclerosis, RPS class III. Global and focal segmental glomerulosclerosis. Documentation states: Acute on chronic renal failure Patient history/risk factors: History of chronic renal failure, hypertension, diastolic CHF, diabetes, Clinical Indicators: Elevated creatinine, decreased GFR Treatment: Hemodialysis In your professional opinion, do you agree with the pathology report specifying nodular diabetic glomerulosclerosis and global and focal segmental glomerulosclerosis? xx Yes No Other (please specify) Unable to determine MTDD
--- NOTE | 2020-06-01 15:00 | CDI ---
Documentation Clarification Form Date: 06/01/20 From: Janelle Batista Phone: If you have a question about this query, please contact Nicole Omalley, Joint Finisher at [phone] between 8am and 5pm. Admit Date: 05/09/20 Discharge Date: Patient Name: Visit Number: ATTENTION: The Clinical Documentation Specialists (CDI) and [facility] Coding Staff appreciate your assistance in clarifying documentation. Please respond to the clarification below the line at the bottom and electronically sign. The CDI & [facility] Coding staff will review the response and follow-up if needed. Please note: Queries are made part of the Legal Health Record. If you have any questions, please contact the author of this message via ITS. Dear Dr. 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 Documentation states: Inguinal lymphadenopathy. 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 Yes No Other (please specify) _[facility] clinical judgment is able to menagerie caretaker without Pt's name?? Unable to determine MTDD
--- NOTE | 2020-06-02 14:00 | CDI ---
Documentation Clarification Form Date: 06/02/20 From: Janelle Batista Phone: If you have a question about this query, please contact Nicole Omalley [employer] at [phone] between 8am and 5pm. Admit Date: 05/09/20 Discharge Date:05/19/20 Patient Name: Reggie Aceves II Visit Number: [id number] ATTENTION: The Clinical Documentation Specialists (CDI) and [facility] Coding Staff appreciate your assistance in clarifying documentation. Please respond to the clarification below the line at the bottom and electronically sign. The CDI & [facility] Coding staff will review the response and follow-up if needed. Please note: Queries are made part of the Legal Health Record. If you have any questions, please contact the author of this message via ITS. Dear Dr. 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 Documentation states: Inguinal lymphadenopathy. 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 xx Yes No Other (please specify) Unable to determine MTDD
== END 2020-05-19 19:59 | disposition home or self-care (01) | DRG 264 ==
LOC: EC 12:15 → 3SCARD 14:11
PROVIDERS: ADMIT Internal Medicine Geriatric Medicine; ATTEND Internal Medicine Geriatric Medicine
PROC: 07BJ3ZX Excision of Left Inguinal Lymphatic, Percutaneous Approach, Diagnostic (ICD-10-PCS; principal; 2020-05-12 12:30)
PROC: 5A1D70Z Performance of Urinary Filtration, Intermittent, Less than 6 Hours Per Day (ICD-10-PCS; 2020-05-17 15:10)
PROC: 02HV33Z Insertion of Infusion Device into Superior Vena Cava, Percutaneous Approach (ICD-10-PCS; 2020-05-17 15:10)
PROC: 0TB03ZX Excision of Right Kidney, Percutaneous Approach, Diagnostic (ICD-10-PCS; 2020-05-18)
DX: I13.2 Hypertensive heart and chronic kidney disease with heart failure and with stage 5 chronic kidney disease, or end stage renal disease (principal); I50.33 Acute on chronic diastolic (congestive) heart failure; N17.0 Acute kidney failure with tubular necrosis; N18.6 End stage renal disease; E85.9 Amyloidosis, unspecified; I31.3 Pericardial effusion (noninflammatory); N04.9 Nephrotic syndrome with unspecified morphologic changes; R18.8 Other ascites; Q85.8 Other phakomatoses, not elsewhere classified; I27.20 Pulmonary hypertension, unspecified; I42.5 Other restrictive cardiomyopathy; D63.1 Anemia in chronic kidney disease; E10.319 Type 1 diabetes mellitus with unspecified diabetic retinopathy without macular edema; E10.22 Type 1 diabetes mellitus with diabetic chronic kidney disease; D72.822 Plasmacytosis; I16.0 Hypertensive urgency; D50.9 Iron deficiency anemia, unspecified; E10.65 Type 1 diabetes mellitus with hyperglycemia; Z20.828 Contact with and (suspected) exposure to other viral communicable diseases; E78.5 Hyperlipidemia, unspecified; H54.62 Unqualified visual loss, left eye, normal vision right eye; R74.8 Abnormal levels of other serum enzymes; I25.10 Atherosclerotic heart disease of native coronary artery without angina pectoris; I25.2 Old myocardial infarction; I49.3 Ventricular premature depolarization; Z86.74 Personal history of sudden cardiac arrest; I25.5 Ischemic cardiomyopathy; I08.8 Other rheumatic multiple valve diseases; K21.9 Gastro-esophageal reflux disease without esophagitis; N30.20 Other chronic cystitis without hematuria; N50.89 Other specified disorders of the male genital organs; R59.0 Localized enlarged lymph nodes; Z79.4 Long term (current) use of insulin; Z79.82 Long term (current) use of aspirin; Z79.899 Other long term (current) drug therapy; Z95.5 Presence of coronary angioplasty implant and graft
CPT/HCPCS: 36415; 36558; 71046; 74176; 76770; 76937; 77001; 77012; 78582; 80048; 80053; 80074; 81001; 82164; 82570; 82728; 83036; 83540; 83550; 83735; 83880; 83970; 84100; 84156; 84484; 85025; 85027; 85049; 85610; 85730; 86038; 86160; 86225; 86255; 86334; 86704; 86706; 86850; 86900; 86901; 87045; 87046; 87340; 88307; 90935; 93005; 93306; 93970; 96365; 96366; 96375; 99285

== ENCOUNTER 2020-05-23 07:39 | Observation (INO) | payer OTHER ==
--- NOTE | 2020-05-23 08:34 | ED ---
General Adult HPI - General Chief complaint: Recheck/Abnormal Lab/Rx Stated complaint: Port is bleeding Time Seen by Provider: 05/23/20 08:00 Source: patient, RN notes reviewed, old records reviewed Mode of arrival: ambulatory Limitations: no limitations - History of Present Illness Initial comments: This is a 39-year-old male who presents emergency Department complaining that his dialysis catheter is bleeding. Patient states he had placed last Friday by Dr. Crawford. Patient states yesterday started bleeding and continue bleeding overnight. Patient states he has no pain he doesn't remember pulling on it or having any trauma to that area. Patient denies any other problems at this time. Patient does admit that he has missed dialysis. Patient denies any fever chills per patient denies chest pain palpitations difficulty breathing shortness of breath per patient denies abdominal pain patient denies nausea vomiting diarrhea. - Related Data Home Medications Medication Instructions Recorded Confirmed Acetaminophen [Tylenol 8 Hour] 650 mg PO Q6H PRN 05/09/20 05/23/20 Aspirin EC [Ecotrin Low Dose] 81 mg PO DAILY 05/09/20 05/23/20 Atorvastatin [Lipitor] 40 mg PO DAILY 05/09/20 05/23/20 Insulin Glargine,Hum.rec.anlog 10 unit SQ HS 05/09/20 05/23/20 [Lantus Solostar] Isosorbide Dinitrate [Isordil] 10 mg PO TID 05/09/20 05/23/20 Nitroglycerin Sl Tabs [Nitrostat] 0.4 mg SUBLINGUAL Q5M PRN 05/09/20 05/23/20 Ondansetron HCl [Zofran] 4 mg PO Q8H PRN 05/09/20 05/23/20 Sesame Oil 4 cap PO DAILY 05/09/20 05/23/20 amLODIPine [Norvasc] 10 mg PO DAILY 05/09/20 05/23/20 hydrALAZINE HCL [Apresoline] 100 mg PO TID 05/09/20 05/23/20 Previous Rx's Medication Instructions Recorded Carvedilol [Coreg] 25 mg PO BID #0 05/19/20 Furosemide [Lasix] 80 mg PO BID@0900,1600 #60 tab 05/19/20 cloNIDine HCL [Catapres] 0.1 mg PO DAILY PRN #30 tab 05/19/20 cloNIDine HCL [Catapres] 0.3 mg PO TID #90 tab 05/19/20 metOLazone [Zaroxolyn] 5 mg PO DAILY #30 tab 05/19/20 Allergies Allergy/AdvReac Type Severity Reaction Status Date / Time No Known Allergies Allergy Verified 05/23/20 08:28 Review of Systems ROS Statement: Those systems with pertinent positive or pertinent negative responses have been documented in the HPI. ROS Other: All systems not noted in ROS Statement are negative. Past Medical History Past Medical History: Heart Failure, Hypertension, Myocardial Infarction (DC), Renal Disease Last Myocardial Infarction Date:: 03/30/2018 History of Any Multi-Drug Resistant Organisms: None Reported Past Surgical History: Heart Catheterization With Stent Date of Last Stent Placement:: 03/31/2018 Past Psychological History: No Psychological Hx Reported Smoking Status: Never smoker Past Alcohol Use History: None Reported Past Drug Use History: None Reported General Exam - General Exam Comments Initial Comments: GENERAL: Patient is well-developed and well-nourished. Patient is nontoxic and well- hydrated and is in no acute distress. ENT: Neck is soft and supple. No significant lymphadenopathy is noted. Oropharynx is clear. Moist mucous membranes. Neck has full range of motion without eliciting any pain. EYES: The sclera were anicteric and conjunctiva were pink and moist. Extraocular movements were intact and pupils were equal round and reactive to light. Eyelids were unremarkable. PULMONARY: Unlabored respirations. Good breath sounds bilaterally. No audible rales rhonchi or wheezing was noted. CARDIOVASCULAR: There is a regular rate and rhythm without any murmurs gallops or rubs. Catheter was placed in the right upper chest and there is some bleeding around the catheter insertion site ABDOMEN: Soft and nontender with normal bowel sounds. No palpable organomegaly was noted. There is no palpable pulsatile mass. SKIN: Skin is clear with no lesions or rashes and otherwise unremarkable. NEUROLOGIC: Patient is alert and oriented x3. Cranial nerves II through XII are grossly intact. Motor and sensory are also intact. Normal speech, volume and content. Symmetrical smile. MUSCULOSKELETAL: Normal extremities with adequate strength and full range of motion. LYMPHATICS: No significant lymphadenopathy is noted PSYCHIATRIC: Normal psychiatric evaluation. Limitations: no limitations Course Vital Signs 05/23/20 05/23/2020 07:43 08:51 09:48 Temperature 98.2 F Pulse Rate 70 68 64 Respiratory 19 18 18 Rate Blood Pressure 178/95 183/96 178/100 O2 Sat by Pulse 100 99 99 Oximetry 05/23/20 11:23 Temperature Pulse Rate 68 Respiratory 18 Rate Blood Pressure 184/102 O2 Sat by Pulse 99 Oximetry Medical Decision Making - Medical Decision Making I spoke with Dr. Crawford he stated that he will be down to see the patient. EKG normal sinus rhythm at 60 bpm HI interval 198 QRSs 114 QT interval 446 QTC is 467. Patient's EKG shows no ST segment elevation or depression. Patient has inverted T waves in the lateral leads which were seen before. Dr. Crawford came down and saw the patient and wanted the patient admitted. He put a pressure dressing on the patient's catheter and we'll see him again tomorrow. - Lab Data Result diagrams: 05/23/20 08:49 05/23/20 08:49 Lab Results 05/23/20 05/23/20 Range/Units 08:49 08:49 WBC 5.3 (3.8-10.6) k/uL RBC 3.08 L (4.30-5.90) m/uL Hgb 9.5 L (13.0-17.5) gm/dL Hct 30.1 L (39.0-53.0) % MCV 97.5 (80.0-100.0) fL MCH 30.8 (25.0-35.0) pg MCHC 31.6 (31.0-37.0) g/dL RDW 17.1 H (11.5-15.5) % Plt Count 306 (150-450) k/uL Neutrophils % 71 % Lymphocytes % 14 % Monocytes % 11 % Eosinophils % 2 % Basophils % 1 % Neutrophils # 3.8 (1.3-7.7) k/uL Lymphocytes # 0.7 L (1.0-4.8) k/uL Monocytes # 0.6 (0-1.0) k/uL Eosinophils # 0.1 (0-0.7) k/uL Basophils # 0.0 (0-0.2) k/uL Anisocytosis Slight Macrocytosis Slight Sodium 135 L (137-145) mmol/L Potassium 3.6 (3.5-5.1) mmol/L Chloride 102 (98-107) mmol/L Carbon Dioxide 25 (22-30) mmol/L Anion Gap 8 mmol/L BUN 48 H (9-20) mg/dL Creatinine 4.55 H (0.66-1.25) mg/dL Est GFR (CKD-EPI)AfAm 18 (>60 ml/min/1.73 sqM) Est GFR (CKD-EPI)NonAf 15 (>60 ml/min/1.73 sqM) Glucose 195 H (74-99) mg/dL Calcium 8.5 (8.4-10.2) mg/dL Total Bilirubin 1.5 H (0.2-1.3) mg/dL AST 71 H (17-59) U/L ALT 86 H (4-49) U/L Alkaline Phosphatase 1131 H (38-126) U/L Total Protein 7.0 (6.3-8.2) g/dL Albumin 2.8 L (3.5-5.0) g/dL Disposition Clinical Impression: Post-op bleeding, Missed dialysis Disposition: ADMITTED IP TO THIS HOSP Referrals: Jj Galindo MD [Primary Care Provider] - 1-2 days Time of Disposition: 11:32
[2020-05-23 09:18] LABS: Anisocytosis Slight; Basophils % (A) 1 %; Eosinophils # (A) 0.1 k/uL (0-0.7); Eosinophils % (A) 2 %; HCT 30.1 % (39.0-53.0); HGB 9.5 gm/dL (13.0-17.5); Lymphocytes # (A) 0.7 k/uL (1.0-4.8); Lymphocytes % (A) 14 %; MCH 30.8 pg (25.0-35.0); MCHC 31.6 g/dL (31.0-37.0); MCV 97.5 fL (80.0-100.0); Macrocytosis Slight; Mean Platelet Volume 9.4; Monocytes # (A) 0.6 k/uL (0-1.0); Monocytes % (A) 11 %; Neutrophils # (A) 3.8 k/uL (1.3-7.7); Neutrophils % (A) 71 %; Platelet Count 306 k/uL (150-450); RBC 3.08 m/uL (4.30-5.90); RDW 17.1 % (11.5-15.5); WBC 5.3 k/uL (3.8-10.6)
[2020-05-23 09:24] LABS: Albumin 2.8 g/dL (3.5-5.0); Calcium 8.5 mg/dL (8.4-10.2); Potassium 3.6 mmol/L (3.5-5.1); Total Bilirubin 1.5 mg/dL (0.2-1.3)
[2020-05-23] MEDS ORDERED: amLODIPine 10 MG TAB PO STA (10:42)
[2020-05-23] MEDS ORDERED: cloNIDine HCL 0.1 MG TAB PO STA (10:42)
[2020-05-23] MEDS ORDERED: carvediloL 12.5 MG TAB PO STA (10:44)
[2020-05-23] MEDS ORDERED: FUROSEMIDE 80 MG TAB PO STA (10:44)
[2020-05-23] MEDS ORDERED: metOLazone 5 MG TAB PO STA (10:47)
[2020-05-23] MEDS ORDERED: ISOSORBIDE DINITRATE 10 MG TAB PO STA (10:47)
[2020-05-23] MEDS ORDERED: HEPARIN SODIUM 1,000 UN/ML (10ML VL) MISCELLANE ONE (11:15)
[2020-05-23 12:28] LABS: INR 1.1 (<1.2); Prothrombin Time 11.1 sec (9.0-12.0)
[2020-05-23] MEDS ORDERED: DESMOPRESSIN ACETATE 26 MCG in SODIUM CHLORIDE 0.9% 50 ML IVPB STA (12:33)
[2020-05-23 12:38] LABS: Partial Thromboplastin Time 182.2 sec (22.0-30.0)
[2020-05-23 17:01] LABS: Glucose,Whole Blood 186 mg/dL (75-99)
[2020-05-23] MEDS: INSULIN ASPART (NovoLOG) 100 UNIT/ML VIAL SQ SCH ×2 (17:36→22:21)
[2020-05-23] MEDS ORDERED: NITROGLYCERIN SL TABS 0.4 MG TAB SUBLINGUAL PRN (19:15)
[2020-05-23] MEDS ORDERED: cloNIDine HCL 0.1 MG TAB PO PRN (19:15)
[2020-05-23] MEDS ORDERED: ACETAMINOPHEN TAB 325 MG TAB PO PRN (19:15)
[2020-05-23] MEDS ORDERED: ONDANSETRON 4 MG TAB PO PRN (19:15)
[2020-05-23] MEDS ORDERED: INSULIN DETEMIR (LEVEMIR) 100 UNIT/ML SYR SQ SCH (21:00)
[2020-05-23 21:47] LABS: Glucose,Whole Blood 266 mg/dL (75-99)
[2020-05-23] MEDS: cloNIDine HCL 0.1 MG TAB PO SCH (22:20)
[2020-05-23] MEDS: hydrALAZINE HCL 50 MG TAB PO SCH (22:22)
[2020-05-23] MEDS: ISOSORBIDE DINITRATE 10 MG TAB PO SCH (22:22)
--- NOTE | 2020-05-23 22:41 | P.HPIM ---
History of Present Illness H&P Date: 05/23/20 Chief Complaint: Malfunctioning dialysis catheter, end-stage renal disease on hemodialysis, 39-year-old male one of my office patient was hospitalized 10 days ago for cardiomyopathy, anasarca, and low doses. Post renal biopsy and post lymph node biopsy from the left groin area. Patient was started on hemodialysis a week ago after having an IJ temporary dialysis catheter in the right chest area by Dr. Crawford, patient has done few hemodialysis before he is left the hospital on Friday last week. Apparently he missed his dialysis which was supposed to be on the hemodialysis center in [place] because he couldn't get transportation, patient presented to demurs department at [facility] today with slight malfunctioning of the hemodialysis catheter with bleeding from it as well. Dr. Crawford was called and seen patient slight adjustment and change in dressing was made and patient was hospitalized will be going for hemodialysis watch his the hospital before the final arrangement for his dialysis to be done as well. Patient is doing slightly but better had significant decrease in weight and fluid retention since last time his blood sugar was mildly elevated the according to him he is taking his medication regularly. Review of Systems CONSTITUTIONAL: Well-developed no acute respiratory distress. EYES: No icterus sclerae, no conjunctivitis. Blindness in the left eye. EARS, NOSE, MOUTH, THROAT, and FACE: No sore throat, lymphadenopathy, carotid bruits or deformity. RESPIRATORY: Positive shortness of breath mild cough no wheezes. CARDIOVASCULAR: Positive PND, orthopnea palpitation significant edema with history of cardiopathy and restrictive cardiomyopathy along with pulmonary hypertension. GASTROINTESTINAL: No Abd pain, Nausea or vomiting, no Diarrhea or constipation, No GI Bleed, no distention or masses. GENITOURINARY: Negative for Hematuria or UTI, positive end-stage kidney disease on hemodialysis. INTEGUMENT/BREAST: Negative for any muscular injury with mild osteoarthritis.. HEMATOLOGIC/LYMPHATIC: Positive anemia. MUSCULOSKELTAL: Negative for Myalgia or arthralgia. NEURLOGICAL: No LOC, Sz or syncope, blurred vision dizziness or abnormality.. BEHAVIORAL/PSYCH: Negative. ENDOCRINE: Negative. Past Medical History Past Medical History: Coronary Artery Disease (CAD), Heart Failure, Eye Disorder, GERD/Reflux, Hyperlipidemia, Hypertension, Myocardial Infarction (ME), Renal Disease, Respiratory Disorder Additional Past Medical History / Comment(s): Pt recently admitted to [facility] on 05/09/20 with acute on chronic CHF/amyloidosis with generalized anasarca/acute on chronic kidney injury/acute anemia/advanced CAD/valvular disease/severe pulm onary htn/abnormal liver test/hyperlipidemia. Other hx: IDDM type II, pt states informed he had kidney disease in Feb, 2020 then ESRD diagnosed 05/09/20 with hemodialysis M/W/F-missed Friday's dialysis d/t ride problem-last dialysis on 05/19/20, neuropathy bilateral feet, L foot ulcer with debridements, L eye blindness d/t diabetic retinopathy, ischemic cardiomyopathy, anasarca/lower leg edema. Last Myocardial Infarction Date:: 03/30/2018 History of Any Multi-Drug Resistant Organisms: None Reported Past Surgical History: Heart Catheterization With Stent Additional Past Surgical History / Comment(s): 05/17/20 R subclavian hemodialysis catheter, debridements L foot wound, R eye surgery-pt believes to remove cataract. Additional Past Anesthesia/Blood Transfusion Reaction / Comment(s): During 3rd debridement L foot ulcer, pt had cardiac arrest. Date of Last Stent Placement:: 03/31/2018 Smoking Status: Never smoker - Past Family History Mother Family Medical History: Diabetes Mellitus, Hyperlipidemia, Hypertension Father Family Medical History: Diabetes Mellitus, Hypertension Medications and Allergies Home Medications Medication Instructions Recorded Confirmed Type RX: Acetaminophen [Tylenol 8 Hour] 650 mg PO Q6H PRN 05/09/20 05/23/20 History RX: Aspirin EC [Ecotrin Low Dose] 81 mg PO DAILY 05/09/20 05/23/20 History RX: Atorvastatin [Lipitor] 40 mg PO DAILY 05/09/20 05/23/20 History RX: Insulin Glargine,Hum.rec.anlog 10 unit SQ HS 05/09/20 05/23/20 History [Lantus Solostar] RX: Isosorbide Dinitrate [Isordil] 10 mg PO TID 05/09/20 05/23/20 History RX: Nitroglycerin Sl Tabs 0.4 mg SUBLINGUAL Q5M PRN 05/09/20 05/23/20 History [Nitrostat] RX: Ondansetron HCl [Zofran] 4 mg PO Q8H PRN 05/09/20 05/23/20 History RX: amLODIPine [Norvasc] 10 mg PO DAILY 05/09/20 05/23/20 History RX: hydrALAZINE HCL [Apresoline] 100 mg PO TID 05/09/20 05/23/20 History Sesame Oil 4 cap PO DAILY 05/09/20 05/23/20 History RX: Carvedilol [Coreg] 25 mg PO BID #0 05/19/20 05/23/20 Rx RX: Furosemide [Lasix] 80 mg PO BID@0900,1600 #60 tab 05/19/20 05/23/20 Rx RX: cloNIDine HCL [Catapres] 0.1 mg PO DAILY PRN #30 tab 05/19/20 05/23/20 Rx RX: cloNIDine HCL [Catapres] 0.3 mg PO TID #90 tab 05/19/20 05/23/20 Rx RX: metOLazone [Zaroxolyn] 5 mg PO DAILY #30 tab 05/19/20 05/23/20 Rx Allergies Allergy/AdvReac Type Severity Reaction Status Date / Time No Known Allergies Allergy Verified 05/23/20 08:28 Physical Exam Vitals: Vital Signs Temp Pulse Pulse Resp BP BP Pulse Ox 05/23/20 14:54 16 05/23/20 14:50 62 16 155/82 100 05/23/20 14:19 98.0 F 61 18 129/76 99 05/23/20 12:50 98.3 F 61 18 173/98 100 05/23/20 12:07 65 18 169/98 100 05/23/20 11:23 68 18 184/102 99 05/23/20 09:48 64 18 178/100 99 05/23/20 08:51 68 18 183/96 99 05/23/20 07:43 98.2 F 70 19 178/95 100 Intake and Output 05/23/20 05/23/20 05/23/20 06:59 14:59 22:59 Other: Voiding Method Urinal # Voids 1 Weight 86.727 kg 86.727 kg General Appearance: Alert, cooperative, no distress, appears stated age. Neck HEENT: Supple, no lymphadenopathy, no thyroid enlargement, no carotid bruits. Blindness in the left eye. Lungs: Decreased breath some relative tried rhonchi positive mild crackles in the bases with mild expiratory wheezes.. Chest Wall: Decrease expansion with deep inspiration no tenderness and no deformity was found on exam, no costochondral pain or discomfort. IJ dialysis catheter in the right side. Heart: Regular rate and rhythm, S1, S2 normal, positive S3 positive JVD. Back: Symmetric, no curvature, ROM normal, no CVA tenderness. Abdomen: Soft, non-tender, bowel sounds active all four quadrants, no masses, no organomegaly. Extremities: 1+ edema decreased positive sinus pedis bilaterally. Pulses: 2+ and symmetric. Skin: Skin color, texture, tugor normal, no rashes or lesions. Neurologic: Alert oriented x3 cranial nerves II through XII intact, no motor deficit, no abnormal balance or gait. Results CBC & Chem 7: 05/23/20 08:49 05/23/20 08:49 Labs: Abnormal Lab Results - Last 24 Hours (Table) 05/23/20 05/23/20 05/23/20 Range/Units 08:49 08:49 11:19 RBC 3.08 L (4.30-5.90) m/uL Hgb 9.5 L (13.0-17.5) gm/dL Hct 30.1 L (39.0-53.0) % RDW 17.1 H (11.5-15.5) % Lymphocytes # 0.7 L (1.0-4.8) k/uL APTT 182.2 H* (22.0-30.0) sec Sodium 135 L (137-145) mmol/L BUN 48 H (9-20) mg/dL Creatinine 4.55 H (0.66-1.25) mg/dL Glucose 195 H (74-99) mg/dL POC Glucose (mg/dL) (75-99) mg/dL Total Bilirubin 1.5 H (0.2-1.3) mg/dL AST 71 H (17-59) U/L ALT 86 H (4-49) U/L Alkaline Phosphatase 1131 H (38-126) U/L Albumin 2.8 L (3.5-5.0) g/dL 05/23/20 Range/Units 16:59 RBC (4.30-5.90) m/uL Hgb (13.0-17.5) gm/dL Hct (39.0-53.0) % RDW (11.5-15.5) % Lymphocytes # (1.0-4.8) k/uL APTT (22.0-30.0) sec Sodium (137-145) mmol/L BUN (9-20) mg/dL Creatinine (0.66-1.25) mg/dL Glucose (74-99) mg/dL POC Glucose (mg/dL) 186 H (75-99) mg/dL Total Bilirubin (0.2-1.3) mg/dL AST (17-59) U/L ALT (4-49) U/L Alkaline Phosphatase (38-126) U/L Albumin (3.5-5.0) g/dL Thrombosis Risk Factor Assmnt - DVT/VTE Prophylaxis DVT/VTE Prophylaxis: Pharmacologic Prophylaxis ordered, Mechanical Prophylaxis ordered - Choose All That Apply Any of the Below Risk Factors Present?: No Other Risk Factors: No Other congenital or acquired thrombophilia - If yes, enter type in comment: No Thrombosis Risk Factor Assessment Level: Very Low Risk Assessment and Plan Assessment: 1 end-stage renal disease on hemodialysis 3 times a week had missed his hemodialysis on Friday patient will be going for hemodialysis in the hospital will continue dialysis on as an outpatient when he is doing better. 2 malfunction of hemodialysis catheter, was seen vascular adjust on the catheter was made and patient will be going for dialysis. 3 cardiomyopathy: Patient to be continue on his medication with Lasix 80 mg twice a day, Coreg 25 g twice a day, hydralazine 100 mg 3 times a day, isosorbide dinitrate 10 mg 3 times a day and Zaroxolyn 18 5 mg daily. 4 restrictive cardio myopathy: Most likely on low-dose is related patient is on medical management currently. 5 pulmonary hypertension: Remain on amlodipine, hydralazine and furosemide. 6 Type 1 diabetes: Continue Lantus and NovoLog titrate Lantus higher to keep his blood sugar below 150 and NovoLog or Humalog will be up to 5-10 units before meals meals plus sliding scales. 7 urgent noncontrolled hypertension: Remain on multi-medication with hydralazine, clonidine, amlodipine, isosorbide, furosemide and Coreg. 8 hyperlipidemia: Continue patient on atorvastatin 40 mg daily. 9 iron deficiency anemia: Secondary to chronic disease and end-stage renal disease, continue iron supplement patient will be on Procrit 10 Covid 19: Still pending. 11 GI prophylaxis: Patient be on Pepcid 20 mg daily. 12 DVT prophylaxis: Continue patient on knee-high ANNE hose and heparin subcutaneous. CODE STATUS: Full code. Admit patient to observation service for 1-2 nights stay.
[2020-05-24 06:47] LABS: Glucose,Whole Blood 88 mg/dL (75-99)
[2020-05-24] MEDS: INSULIN ASPART (NovoLOG) 100 UNIT/ML VIAL SQ SCH ×2 (07:14→12:06)
[2020-05-24 07:42] VITALS: TEMP 98.4
[2020-05-24] MEDS: carvediloL 12.5 MG TAB PO SCH ×2 (08:34→12:48)
[2020-05-24] MEDS: amLODIPine 10 MG TAB PO SCH ×3 (08:34→12:49)
[2020-05-24] MEDS: hydrALAZINE HCL 50 MG TAB PO SCH ×2 (08:35→12:47)
[2020-05-24] MEDS: FUROSEMIDE 80 MG TAB PO SCH ×2 (08:35→15:15)
[2020-05-24] MEDS: ISOSORBIDE DINITRATE 10 MG TAB PO SCH ×2 (08:35→12:50)
[2020-05-24] MEDS: cloNIDine HCL 0.1 MG TAB PO SCH ×2 (08:35→12:48)
[2020-05-24] MEDS: metOLazone 5 MG TAB PO SCH ×3 (08:35→15:15)
[2020-05-24] MEDS ORDERED: ATORVASTATIN 40 MG TAB PO SCH (09:00)
[2020-05-24] MEDS ORDERED: ASPIRIN 81 MG PO SCH (09:00)
--- NOTE | 2020-05-24 09:53 | P.DS ---
Providers Date of admission: 05/23/20 11:57 Attending physician: Jj Galindo Consults: 05/23/20 11:32 Consult Physician Urgent Consulting Provider: Thai Crawford Consult Reason/Comments: Bleeding catheter Do you want consulting provider notified?: Already Contacted Consult Physician Urgent Consulting Provider: Laura Hebert Consult Reason/Comments: Dialysis Do you want consulting provider notified?: Yes Primary care physician: [facility] Course: 39-year-old male one of my office patient was hospitalized 10 days ago for cardiomyopathy, anasarca, and low doses. Post renal biopsy and post lymph node biopsy from the left groin area. Patient was started on hemodialysis a week ago after having an IJ temporary dialysis catheter in the right chest area by Dr. Crawford, patient has done few hemodialysis before he is left the hospital on Friday last week. Apparently he missed his dialysis which was supposed to be on the hemodialysis center in [place] because he couldn't get transportation, patient presented to emergency department at [facility] today with slight malfunctioning of the hemodialysis catheter with bleeding from it as well. Dr. Crawford was called and seen patient slight adjustment and change in dressing was made and patient was hospitalized will be going for hemodialysis watch his the hospital before the final arrangement for his dialysis to be done as well. Patient is doing slightly but better had significant decrease in weight and fluid retention since last time his blood sugar was mildly elevated the according to him he is taking his medication regularly. 05/24: Patient was seen this morning resting in bed. Dr. Crawford readjusted hemodialysis catheter yesterday, currently not bleeding. Plan for hemodialysis today prior to discharge home. Social work on the case to help with transportation to dialysis as an outpatient. Vital signs are stable patient remains afebrile blood pressure this morning was 151/73, heart rate 68, respirations 16, pulse ox 95% on room air. 1 end-stage renal disease 2 malfunction of hemodialysis catheter 3 cardiomyopathy: 4 restrictive cardio myopathy: 5 pulmonary hypertension: 6 Type 1 diabetes: 7 urgent noncontrolled hypertension: 8 hyperlipidemia: 9 iron deficiency anemia: Discharge plan: Home with homecare Impression and plan of care have been directed as dictated by the signing physician. Mariza Naidu nurse practitioner acting as scribe for signing physician. Plan - Discharge Summary New Discharge Prescriptions: New INSULIN ASPART (NovoLOG) [NovoLOG (formulary)] 0 unit SQ ACHS #1 vial Continue Aspirin EC [Ecotrin Low Dose] 81 mg PO DAILY Atorvastatin [Lipitor] 40 mg PO DAILY Acetaminophen [Tylenol 8 Hour] 650 mg PO Q6H PRN PRN Reason: Pain Or Fever > 100.5 Ondansetron HCl [Zofran] 4 mg PO Q8H PRN PRN Reason: Nausea And Vomiting Insulin Glargine,Hum.rec.anlog [Lantus Solostar] 10 unit SQ HS hydrALAZINE HCL [Apresoline] 100 mg PO TID amLODIPine [Norvasc] 10 mg PO DAILY Isosorbide Dinitrate [Isordil] 10 mg PO TID Sesame Oil 4 cap PO DAILY Nitroglycerin Sl Tabs [Nitrostat] 0.4 mg SUBLINGUAL Q5M PRN PRN Reason: Chest Pain cloNIDine HCL [Catapres] 0.3 mg PO TID #90 tab cloNIDine HCL [Catapres] 0.1 mg PO DAILY PRN #30 tab PRN Reason: Blood Pressure - High Furosemide [Lasix] 80 mg PO BID@0900,1600 #60 tab metOLazone [Zaroxolyn] 5 mg PO DAILY #30 tab Carvedilol [Coreg] 25 mg PO BID #0 Discharge Medication List Acetaminophen [Tylenol 8 Hour] 650 mg PO Q6H PRN 05/09/20 [History] Aspirin EC [Ecotrin Low Dose] 81 mg PO DAILY 05/09/20 [History] Atorvastatin [Lipitor] 40 mg PO DAILY 05/09/20 [History] Insulin Glargine,Hum.rec.anlog [Lantus Solostar] 10 unit SQ HS 05/09/20 [History] Isosorbide Dinitrate [Isordil] 10 mg PO TID 05/09/20 [History] Nitroglycerin Sl Tabs [Nitrostat] 0.4 mg SUBLINGUAL Q5M PRN 05/09/20 [History] Ondansetron HCl [Zofran] 4 mg PO Q8H PRN 05/09/20 [History] Sesame Oil 4 cap PO DAILY 05/09/20 [History] amLODIPine [Norvasc] 10 mg PO DAILY 05/09/20 [History] hydrALAZINE HCL [Apresoline] 100 mg PO TID 05/09/20 [History] Carvedilol [Coreg] 25 mg PO BID #0 05/19/20 [Rx] Furosemide [Lasix] 80 mg PO BID@0900,1600 #60 tab 05/19/20 [Rx] cloNIDine HCL [Catapres] 0.1 mg PO DAILY PRN #30 tab 05/19/20 [Rx] cloNIDine HCL [Catapres] 0.3 mg PO TID #90 tab 05/19/20 [Rx] metOLazone [Zaroxolyn] 5 mg PO DAILY #30 tab 05/19/20 [Rx] INSULIN ASPART (NovoLOG) [NovoLOG (formulary)] 0 unit SQ ACHS #1 vial 05/24/20 [Rx] Follow up Appointment(s)/Referral(s): Laura Hebert MD [STAFF PHYSICIAN] - 1 Week Jj Galindo MD [Primary Care Provider] - 1-2 days Thai Crawford MD [STAFF PHYSICIAN] - 1 Week (venous mapping) Patient Instructions/Handouts: Hemodialysis (DC) Discharge Disposition: HOME WITH HOME HEALTH SERVICES
--- NOTE | 2020-05-24 10:04 | PCN ---
PROCEDURE NOTE This is a 39-year-old gentleman who is known to me. He had a right IJ catheter placed a few weeks ago. Patient came to the emergency room with bleeding from the exit site of the catheter. No history of trauma. All that time patient was having dialysis with no other problem. The patient was seen in the emergency room. His neck is supple, trachea central, chest is clear, abdomen is soft. Femoral pulses are present. Brachial radial pulses are present. Patient has a catheter right IJ approach and there was bleeding from the exit site of the catheter. The catheter was flushed with heparin saline and hep-locked. The patient had a decent return. Then we put a pursestring suture around the exit site of catheter and pressure dressing was applied. The patient has been admitted for dialysis and we gave him DDAVP through the piggyback for control of bleeding. PLAN: After dialysis, patient will go home. Will follow in the office next week for venous mapping. The patient needs to go for fistula. MMSALLY / CHELON: [id number] /
[2020-05-24 11:32] VITALS: BMI 25.9
[2020-05-24 11:42] LABS: Glucose,Whole Blood 132 mg/dL (75-99)
[2020-05-24 15:19] VITALS: RESP 16
[2020-05-24 16:38] VITALS: BP 190/89; PULSE 70
--- NOTE | 2020-05-24 19:51 | CONS ---
CONSULTATION REASON FOR CONSULT: End-stage renal disease. HISTORY OF PRESENT ILLNESS: The patient is a 39-year-old male who was admitted to the hospital with bleeding from his PermCath site. He had a pressure dressing placed yesterday and received a dose of DDAVP. Patient's bleeding has stopped. He was started on dialysis on his last admission for chronic kidney disease and severe volume overload. Patient's kidney biopsy did show significant diabetic glomerulosclerosis with severe scarring. He is scheduled for hemodialysis today and then he will be discharged post dialysis. No fever, chills, nausea, vomiting, abdominal pain or diarrhea. PHYSICAL EXAMINATION: Blood pressure is 151/73, heart rate 68 per minute. He is afebrile. EXAMINATION OF THE HEART: S1 and S2. EXAMINATION OF LUNGS: Bilateral breath sounds are heard. ABDOMEN: Soft, non-tender. Examination of lower extremities shows much improved edema. DATA INTEGRATION DEVELOPER exam is grossly intact. LABS: Labs show sodium 135, potassium 3.6, chloride 102. CO2 is 25, BUN 48, creatinine 4.5, hemoglobin 9.5 g/dL. ASSESSMENT: 1. End-stage renal disease, on hemodialysis on a Friday, Friday, Friday schedule. Patient will be dialyzed today and then he can be discharged post dialysis. 2. Bleeding from PermCath site, currently improved, status post DDAVP yesterday and with pressure dressing. 3. Volume overload, now significantly improved. 4. Hypertension, partly volume-sensitive, now improved. 5. Cardiomyopathy. PLAN: Hemodialysis today, following which patient can be discharged and follow up as outpatient at his regular dialysis clinic in [place]. Thank you for this consultation. JUAN C / CHELON: [id number] /
== END 2020-05-24 16:55 | disposition home health service (06) ==
LOC: EC 07:39 → 1SOBS 11:57
PROVIDERS: ADMIT Internal Medicine Geriatric Medicine; ATTEND Internal Medicine Geriatric Medicine
DX: T82.838A Hemorrhage due to vascular prosthetic devices, implants and grafts, initial encounter (principal); Z49.01 Encounter for fitting and adjustment of extracorporeal dialysis catheter; N18.6 End stage renal disease; I42.5 Other restrictive cardiomyopathy; I27.20 Pulmonary hypertension, unspecified; E10.22 Type 1 diabetes mellitus with diabetic chronic kidney disease; I13.2 Hypertensive heart and chronic kidney disease with heart failure and with stage 5 chronic kidney disease, or end stage renal disease; E78.5 Hyperlipidemia, unspecified; D50.9 Iron deficiency anemia, unspecified; I16.0 Hypertensive urgency; I50.9 Heart failure, unspecified; I25.2 Old myocardial infarction; R60.1 Generalized edema; E87.70 Fluid overload, unspecified; Z91.15 Patient's noncompliance with renal dialysis; Z79.82 Long term (current) use of aspirin; Z79.4 Long term (current) use of insulin; Z79.899 Other long term (current) drug therapy; Z95.5 Presence of coronary angioplasty implant and graft; Z98.890 Other specified postprocedural states; I25.10 Atherosclerotic heart disease of native coronary artery without angina pectoris; H54.62 Unqualified visual loss, left eye, normal vision right eye; E10.319 Type 1 diabetes mellitus with unspecified diabetic retinopathy without macular edema; K21.9 Gastro-esophageal reflux disease without esophagitis; Z87.09 Personal history of other diseases of the respiratory system; E10.42 Type 1 diabetes mellitus with diabetic polyneuropathy; Z87.2 Personal history of diseases of the skin and subcutaneous tissue; Z98.41 Cataract extraction status, right eye; Z86.74 Personal history of sudden cardiac arrest; Z83.3 Family history of diabetes mellitus; Z83.438 Family history of other disorder of lipoprotein metabolism and other lipidemia; Z82.49 Family history of ischemic heart disease and other diseases of the circulatory system
CPT/HCPCS: 96365; 99285; 36415; 93005; 80053; 85025; 85610; 85730; 12001; G0378 ×2; G0257; U0003; J1644; J2597; 90935

== ENCOUNTER 2020-11-03 14:57 | Emergency (ER) | payer MEDICARE, OTHER ==
[2020-11-03 15:03] VITALS: RESP 18
--- NOTE | 2020-11-03 15:16 | ED ---
Wound/Laceration HPI - General Chief Complaint: Wound/Laceration Stated Complaint: foot wound bleeding Time Seen by Provider: 11/03/20 15:01 Source: patient, EMS Mode of arrival: EMS Limitations: no limitations - History of Present Illness Initial Comments: 40-year-old male with history of diabetes, end-stage renal disease currently on dialysis, chronic diabetic ulcers presenting to the emergency department with chief complaint of a bleeding wound. Patient states he was at the wound center earlier today and had debridement on a wound on his left heel. Patient states he was advised to come to the emergency department if the bleeding hasn't stopped. He states he was advised to tell the emergency Department staff to cauterize the wound. Patient has peripheral neuropathy and has no feeling in his distal extremities. States he also has yet to take his night antihypertensive medication. - Related Data Home Medications Medication Instructions Recorded Confirmed Acetaminophen [Tylenol 8 Hour] 650 mg PO Q6H PRN 05/09/20 11/03/20 Atorvastatin [Lipitor] 40 mg PO HS 05/09/20 11/03/20 Insulin Glargine,Hum.rec.anlog 10 unit SQ HS 05/09/20 11/03/20 [Lantus Solostar] Isosorbide Dinitrate [Isordil] 10 mg PO TID 05/09/20 11/03/20 Nitroglycerin Sl Tabs [Nitrostat] 0.4 mg SUBLINGUAL Q5M PRN 05/09/20 11/03/20 amLODIPine [Norvasc] 10 mg PO DAILY 05/09/20 11/03/20 hydrALAZINE HCL [Apresoline] 100 mg PO TID 05/09/20 11/03/20 Calcium Acetate [PhosLo] 667 mg PO AC-TID 11/03/20 11/03/20 Carvedilol [Coreg] 50 mg PO BID 11/03/20 11/03/20 Cimetidine [Tagamet] 200 mg PO MOWEFR 11/03/20 11/03/20 Cimetidine [Tagamet] 400 mg PO SUTUTHSA 11/03/20 11/03/20 Furosemide [Lasix] 80 mg PO BID 11/03/20 11/03/20 Losartan Potassium [Cozaar] 100 mg PO DAILY 11/03/20 11/03/20 Sodium Bicarbonate Tab 650 mg PO QID PRN 11/03/20 11/03/20 cloNIDine HCL [Catapres] 0.1 mg PO BID PRN 11/03/20 11/03/20 cloNIDine HCL [Catapres] 0.2 mg PO TID PRN 11/03/20 11/03/20 Previous Rx's Medication Instructions Recorded cloNIDine HCL [Catapres] 0.3 mg PO TID #90 tab 05/19/20 metOLazone [Zaroxolyn] 5 mg PO DAILY #30 tab 05/19/20 Allergies Allergy/AdvReac Type Severity Reaction Status Date / Time No Known Allergies Allergy Verified 11/03/20 16:23 Review of Systems ROS Statement: Those systems with pertinent positive or pertinent negative responses have been documented in the HPI. ROS Other: All systems not noted in ROS Statement are negative. Past Medical History Past Medical History: Coronary Artery Disease (CAD), Heart Failure, Eye Disorder, GERD/Reflux, Hyperlipidemia, Hypertension, Myocardial Infarction ([place]), Renal Disease, Respiratory Disorder Additional Past Medical History / Comment(s): Pt recently admitted to [facility] on 05/09/20 with acute on chronic CHF/amyloidosis with generalized anasarca/acute on chronic kidney injury/acute anemia/advanced CAD/valvular disease/severe pulmonary htn/abnormal liver test/hyperlipidemia. Other hx: IDDM type II, pt states informed he had kidney disease in Feb, 2020 then ESRD diagnosed 05/09/20 with hemodialysis M/W/F-missed Friday's dialysis d/t ride problem-last dialysis on 05/19/20, neuropathy bilateral feet, L foot ulcer with debridements, L eye blindness d/t diabetic retinopathy, ischemic cardiomyopathy, anasarca/lower leg edema. Last Myocardial Infarction Date:: 03/30/2018 History of Any Multi-Drug Resistant Organisms: None Reported Past Surgical History: Heart Catheterization With Stent Additional Past Surgical History / Comment(s): 05/17/20 R subclavian hemodialysis catheter, debridements L foot wound, R eye surgery-pt believes to remove cataract, SEAN fistula Additional Past Anesthesia/Blood Transfusion Reaction / Comment(s): During 3rd debridement L foot ulcer, pt had cardiac arrest. Date of Last Stent Placement:: 03/31/2018 Past Psychological History: No Psychological Hx Reported Smoking Status: Never smoker Past Alcohol Use History: None Reported Past Drug Use History: None Reported - Past Family History Mother Family Medical History: Diabetes Mellitus, Hyperlipidemia, Hypertension Father Family Medical History: Diabetes Mellitus, Hypertension General Exam Limitations: no limitations General appearance: alert, in no apparent distress Head exam: Present: atraumatic, normocephalic, normal inspection Eye exam: Present: normal appearance (Diabetic retinopathy left eye), PERRL, EOMI Pupils: Present: normal accommodation ENT exam: Present: normal exam, normal oropharynx, mucous membranes moist, TM's normal bilaterally, normal external ear exam Neck exam: Present: normal inspection, full ROM. Absent: tenderness Respiratory exam: Present: normal lung sounds bilaterally. Absent: respiratory distress, wheezes, rales Cardiovascular Exam: Present: regular rate, normal rhythm, normal heart sounds Extremities exam: Present: full ROM. Absent: normal inspection (Bleeding wound on the left heel) Back exam: Present: normal inspection, full ROM Neurological exam: Present: alert, oriented X3 Psychiatric exam: Present: normal affect, normal mood Skin exam: Present: warm, dry, intact, normal color Course Vital Signs 11/03/20 11/03/20 11/03/20 14:58 15:45 16:50 Temperature 97.5 F L 98.1 F 98.5 F Pulse Rate 81 79 78 Respiratory 18 18 18 Rate Blood Pressure 171/91 195/105 185/101 O2 Sat by Pulse 100 100 100 Oximetry Medical Decision Making - Medical Decision Making 40-year-old male with history of type 1 diabetes, end-stage renal disease with currently on dialysis presenting to the emergency department with a chief complaint of bleeding wound. On physical examination, patient has a wound on the left heel that has a continues bleeding. I spoke with from wound care who advised application of Gelfoam, ABD pad advising the patient to stay off of his feet. He also advised the patient return to emergency department for admission if the bleeding continues. This was performed on the patient advised the patient to stay off of his feet and come to the emergency department if the bleeding continues in order to be admitted. Patient continues to be hypertensive because he is yet to take his medication. I gave the patient 25 mg her carvedilol per his request. Return parameters discussed with patient is understanding and agreeable. Case discussed with physician. Disposition Clinical Impression: Bleeding from wound Disposition: HOME SELF-CARE Condition: Stable Instructions (If sedation given, give patient instructions): Acute Wound Care (ED) Additional Instructions: Return to emergency department if the bleeding continues. Continue your scheduled appointments with wound care. Is patient prescribed a controlled substance at d/c from ED?: No Referrals: Jj Galindo MD [Primary Care Provider] - 1-2 days Time of Disposition: 16:00
[2020-11-03] MEDS ORDERED: GELATIN SPONGE,ABSORB (LARGE) 1 EACH SPONGE TOPICAL STA (15:33)
[2020-11-03] MEDS ORDERED: carvediloL 12.5 MG TAB PO STA (15:52)
[2020-11-03 16:51] VITALS: BP 185/101; PULSE 78; TEMP 98.5
== END 2020-11-03 16:48 | disposition home or self-care (01) ==
LOC: EC 14:57
DX: L76.22 Postprocedural hemorrhage of skin and subcutaneous tissue following other procedure (principal); I25.10 Atherosclerotic heart disease of native coronary artery without angina pectoris; I50.9 Heart failure, unspecified; E10.319 Type 1 diabetes mellitus with unspecified diabetic retinopathy without macular edema; E10.40 Type 1 diabetes mellitus with diabetic neuropathy, unspecified; E10.22 Type 1 diabetes mellitus with diabetic chronic kidney disease; K21.9 Gastro-esophageal reflux disease without esophagitis; E78.5 Hyperlipidemia, unspecified; I25.2 Old myocardial infarction; N18.6 End stage renal disease; I13.2 Hypertensive heart and chronic kidney disease with heart failure and with stage 5 chronic kidney disease, or end stage renal disease; Z95.5 Presence of coronary angioplasty implant and graft; Z79.4 Long term (current) use of insulin; Z79.899 Other long term (current) drug therapy; Z99.2 Dependence on renal dialysis; Z98.41 Cataract extraction status, right eye
CPT/HCPCS: 36415; 80053; 83036; 84134; 85025; 99283

== ENCOUNTER → 2020-11-03 | Outpatient (CLI) | payer MEDICARE, OTHER ==
--- NOTE | 2020-11-03 13:04 | XR ---
EXAMINATION TYPE: XR calcaneus 2V LT DATE OF EXAM: 11/03/2020 COMPARISON: NONE HISTORY: Nonhealing wound. TECHNIQUE: 2 views left calcaneus. FINDINGS: There is soft tissue irregularity consistent with overlying gauze or bandage material and a djacent wound plantar surface mid aspect of the calcaneus. The adjacent calcaneus is deformed and scl erotic suggesting chronic osteomyelitis. No suspicious cortical destruction identified to suggest acu te osteomyelitis currently. Boehler's angle is abnormal suggesting possible old healed fracture defor mity. Correlation with old outside x-ray would be beneficial. IMPRESSION: As above.
[2020-11-03 13:32] LABS: Basophils % (A) 0 %; Eosinophils # (A) 0.1 k/uL (0-0.7); Eosinophils % (A) 2 %; HCT 32.7 % (39.0-53.0); Lymphocytes # (A) 1.9 k/uL (1.0-4.8); Lymphocytes % (A) 34 %; MCH 31.1 pg (25.0-35.0); MCHC 33.5 g/dL (31.0-37.0); MCV 92.8 fL (80.0-100.0); Monocytes # (A) 0.5 k/uL (0-1.0); Monocytes % (A) 9 %; Neutrophils % (A) 53 %; Platelet Count 169 k/uL (150-450); RBC 3.52 m/uL (4.30-5.90); RDW 15.3 % (11.5-15.5); WBC 5.7 k/uL (3.8-10.6)
[2020-11-03 19:46] LABS: African American GFR (CKD) 18.9 (60.0-200.0); Albumin 3.9 g/dL (3.80-4.90); Albumin/Globulin Ratio 1.22 (1.60-3.17); Anion Gap 5.6 mmol/L (4.00-12.00); BUN/Creat Ratio 6.51 Ratio (12.00-20.00); Calcium 9.1 mg/dL (8.7-10.3); Carbon Dioxide 37.4 mmol/L (21.6-31.8); Globulin 3.2 g/dL (1.6-3.3); Non-African American GFR(CKD) 16.3 (60.0-200.0); Potassium 4.2 mmol/L (3.5-5.5); Total Bilirubin 0.3 mg/dL (0.3-1.2); Total Protein 7.1 g/dL (6.2-8.2)
[2020-11-03 21:15] LABS: Hemoglobin A1C 11.3 % (4.0-6.0)
== END | disposition home or self-care (01) ==
LOC: LABWHC1 11:46
PROVIDERS: ATTEND Podiatrist
DX: M79.89 Other specified soft tissue disorders (principal); M21.6X2 Other acquired deformities of left foot; R93.6 Abnormal findings on diagnostic imaging of limbs; L97.422 Non-pressure chronic ulcer of left heel and midfoot with fat layer exposed; I73.89 Other specified peripheral vascular diseases; E10.42 Type 1 diabetes mellitus with diabetic polyneuropathy; N18.5 Chronic kidney disease, stage 5; I25.9 Chronic ischemic heart disease, unspecified
CPT/HCPCS: 36415; 80053; 83036; 84134; 85025

== ENCOUNTER → 2020-11-15 | Outpatient (CLI) | payer MEDICARE, OTHER ==
--- NOTE | 2020-11-22 09:36 | P.ARTDOP ---
Arterial Doppler LOWER EXTREMITY ARTERIAL DOPPLER: DATE OF SERVICE: 11/15/2020 Reason for study: Left foot ulcer. Doppler waveforms: Multiphasic bilaterally throughout. Pulse volume recording: []. Pressure gradients: None. Ankle-brachial indices: Greater than 1 bilaterally. Toe brachial indices: 0.81 on the right, 0.89 on the left Impression: Normal study.
== END | disposition home or self-care (01) ==
LOC: RADUSWWP 13:46
PROVIDERS: ATTEND Podiatrist
DX: I25.9 Chronic ischemic heart disease, unspecified (principal); I73.89 Other specified peripheral vascular diseases; N18.5 Chronic kidney disease, stage 5; E10.42 Type 1 diabetes mellitus with diabetic polyneuropathy; L97.422 Non-pressure chronic ulcer of left heel and midfoot with fat layer exposed
CPT/HCPCS: 93922; 93923

== ENCOUNTER → 2021-06-14 | Outpatient (CLI) | payer MEDICARE, OTHER ==
[2021-06-14 19:02] LABS: Basophils # (A) 0.03 X 10*3/uL (0.00-0.10); Basophils % (A) 0.6 %; Eosinophils # (A) 0.08 X 10*3/uL (0.04-0.35); Eosinophils % (A) 1.5 %; HCT 31.2 % (39.6-50.0); Lymphocytes # (A) 1.76 X 10*3/uL (0.90-5.00); Lymphocytes % (A) 33.3 %; MCH 31.4 pg (27.0-32.0); MCHC 32.1 g/dL (32.0-37.0); MCV 98.1 fL (80.0-97.0); Mean Platelet Volume 11.9 fL (9.5-12.2); Monocytes # (A) 0.47 X 10*3/uL (0.20-1.00); Monocytes % (A) 8.9 %; Neutrophils # (A) 2.93 X 10*3/uL (1.80-7.70); Neutrophils % (A) 55.5 %; Platelet Count 221 X 10*3/uL (140-440); RBC 3.18 X 10*6/uL (4.40-5.60); RDW 14.4 % (11.5-14.5); WBC 5.28 X 10*3/uL (4.50-10.00)
[2021-06-14 20:24] LABS: ALT 10 U/L (10-49); AST <7 U/L (14-35); Albumin/Globulin Ratio 1.09 (1.60-3.17); Alkaline Phosphatase 96 U/L (41-126); Calcium 9.2 mg/dL (8.7-10.3); Carbon Dioxide 36.7 mmol/L (21.6-31.8); Chloride 96 mmol/L (96-109); Chol/HDL Ratio 2.67; Cholesterol 136 mg/dL (0-200); Globulin 3.3 g/dL (1.6-3.3); Glucose 148 mg/dL (70-110); LDL Cholesterol,Calculated 74.6 mg/dL (0.0-131.0); Non-African American GFR(CKD) 14.6 (60.0-200.0); Potassium 4.2 mmol/L (3.5-5.5); Sodium 140 mmol/L (135-145); Total Bilirubin 0.3 mg/dL (0.3-1.2); Total Protein 6.9 g/dL (6.2-8.2)
[2021-06-14 21:37] LABS: Hemoglobin A1C 6.2 % (4.0-6.0)
== END | disposition home or self-care (01) ==
LOC: LABWHC1 14:59
PROVIDERS: ATTEND Internal Medicine Geriatric Medicine
DX: E10.65 Type 1 diabetes mellitus with hyperglycemia (principal); E10.22 Type 1 diabetes mellitus with diabetic chronic kidney disease; N18.6 End stage renal disease; I25.10 Atherosclerotic heart disease of native coronary artery without angina pectoris
CPT/HCPCS: 36415; 80053; 80061; 83036; 84443; 85025

== ENCOUNTER → 2021-12-18 | Outpatient (CLI) | payer MEDICARE, MEDICAID ==
--- NOTE | 2021-12-18 15:32 | XR ---
EXAMINATION TYPE: XR chest 2V DATE OF EXAM: 12/18/2021 COMPARISON: chest x-ray 05/09/2020 HISTORY: Z 76.82 TECHNIQUE: Frontal and lateral views of the chest are obtained. FINDINGS: The heart is enlarged. Surgical clips are present in the right axilla. No evident pneumoth orax or pleural effusion. Pulmonary vascularity and giovani within normal limits, no evident airspace di sease. Bones are normal. IMPRESSION: cardiomegaly.
== END | disposition home or self-care (01) ==
LOC: RADXRMAIN 13:40
PROVIDERS: ATTEND Surgery
DX: I51.7 Cardiomegaly (principal); Z76.82 Awaiting organ transplant status
CPT/HCPCS: 71046

== ENCOUNTER → 2021-12-18 | Outpatient (CLI) | payer MEDICARE, MEDICAID ==
[2021-12-18 18:24] LABS: Basophils # (A) 0.03 X 10*3/uL (0.00-0.10); Basophils % (A) 0.7 %; Eosinophils # (A) 0.06 X 10*3/uL (0.04-0.35); Eosinophils % (A) 1.5 %; HCT 33.6 % (39.6-50.0); HGB 10.8 g/dL (13.0-17.0); Immature Grans, Automated 0.2 %; Lymphocytes # (A) 1.23 X 10*3/uL (0.90-5.00); Lymphocytes % (A) 30.4 %; MCH 31.4 pg (27.0-32.0); MCHC 32.1 g/dL (32.0-37.0); MCV 97.7 fL (80.0-97.0); Mean Platelet Volume 12.5 fL (9.5-12.2); Monocytes # (A) 0.48 X 10*3/uL (0.20-1.00); Monocytes % (A) 11.9 %; NRBC Per 100 WBC 0 /100 WBCS (0.0-0.0); Neutrophils # (A) 2.24 X 10*3/uL (1.80-7.70); Neutrophils % (A) 55.3 %; Platelet Count 157 X 10*3/uL (140-440); RBC 3.44 X 10*6/uL (4.40-5.60); RDW 14.9 % (11.5-14.5); WBC 4.05 X 10*3/uL (4.50-10.00)
[2021-12-18 18:33] LABS: ALT 17 U/L (10-49); AST 16 U/L (14-35); African American GFR (CKD) 10.8 (60.0-200.0); Albumin 4.2 g/dL (3.8-4.9); Albumin/Globulin Ratio 1.14 (1.60-3.17); Alkaline Phosphatase 106 U/L (41-126); Bilirubin, Conjugated <0.20 mg/dL (0.20-0.40); Blood Urea Nitrogen 38.1 mg/dL (9.0-27.0); Calcium 8.7 mg/dL (8.7-10.3); Carbon Dioxide 28.7 mmol/L (20.0-27.5); Chloride 99 mmol/L (96-109); GGT 37 U/L (0-73); Globulin 3.7 g/dL (1.6-3.3); Glucose 125 mg/dL (70-110); LDH 204 U/L (120-246); Non-African American GFR(CKD) 9.3 (60.0-200.0); Potassium 4.1 mmol/L (3.5-5.5); Sodium 141 mmol/L (135-145)
[2021-12-18 18:38] LABS: Hepatitis B Surface AB- Quant 23.1 mIU/mL; Hepatitis B Surface Antibody Reactive (Nonreactive)
[2021-12-18 18:46] LABS: Chol/HDL Ratio 1.91 Ratio
[2021-12-18 19:34] LABS: Hepatitis B Surface Antigen Nonreactive (Nonreactive); Hepatitis C IgG Antibody Nonreactive (Nonreactive)
[2021-12-18 20:14] LABS: Hepatitis B Core IgM Nonreactive (Nonreactive)
[2021-12-18 21:39] LABS: HIV 2 AB Non-Reactive (Non-Reactive); HIV AB P24 Non-Reactive (Non-Reactive); HIV P24 AG Non-Reactive (Non-Reactive)
[2021-12-19 11:58] LABS: C-Peptide 4.26 ng/mL (0.81-3.85)
== END | disposition home or self-care (01) ==
LOC: LABWHC1 12:55
PROVIDERS: ATTEND Surgery
DX: Z01.83 Encounter for blood typing (principal); Z11.4 Encounter for screening for human immunodeficiency virus [HIV]; N18.6 End stage renal disease; B25.9 Cytomegaloviral disease, unspecified; B27.90 Infectious mononucleosis, unspecified without complication; K71.6 Toxic liver disease with hepatitis, not elsewhere classified; B17.10 Acute hepatitis C without hepatic coma; Z11.59 Encounter for screening for other viral diseases; E80.7 Disorder of bilirubin metabolism, unspecified; R68.89 Other general symptoms and signs; E11.65 Type 2 diabetes mellitus with hyperglycemia; D53.9 Nutritional anemia, unspecified; N41.9 Inflammatory disease of prostate, unspecified; Z11.1 Encounter for screening for respiratory tuberculosis; Z76.82 Awaiting organ transplant status; E11.22 Type 2 diabetes mellitus with diabetic chronic kidney disease
CPT/HCPCS: 36415; 80053; 80061; 82248; 82977; 83036; 83615; 83721; 84153; 84681; 85025; 86480; 86644; 86663; 86704; 86705; 86706; 86780; 86803; 86900; 86901; 87340; 87390; 87522; 93005

== ENCOUNTER → 2022-02-05 | Outpatient (CLI) | payer MEDICARE, MEDICAID ==
--- NOTE | 2022-02-05 17:16 | US ---
EXAMINATION TYPE: US kidneys/renal and bladder DATE OF EXAM: 02/05/2022 COMPARISON: NONE CLINICAL HISTORY: Z76.82. Renal disease on dialysis and transplant list. EXAM MEASUREMENTS: Right Kidney: 10.4 x 4.3 x 4.6 cm Left Kidney: 9.8 x 5.1 x 4.3 cm Right Kidney: No hydronephrosis or masses seen Left Kidney: No hydronephrosis or masses seen borderline prominence of the left renal collecting syst em may be present. Bladder: anechoic Bilateral Jets seen: No IMPRESSION: Slight prominence of the left renal collecting system without overt hydronephrosis.
== END | disposition home or self-care (01) ==
LOC: RADUSWWP 07:00
PROVIDERS: ATTEND Surgery
DX: Z76.82 Awaiting organ transplant status (principal); Z99.2 Dependence on renal dialysis
CPT/HCPCS: 76770

== ENCOUNTER → 2022-07-03 | Outpatient (CLI) | payer MEDICARE, OTHER ==
--- NOTE | 2022-07-03 15:29 | XR ---
EXAMINATION TYPE: XR foot complete LT DATE OF EXAM: 07/03/2022 3:22 PM INDICATION: Patient age:Male; 41 years old; Reason for study: E08.621 DIABETES MELLITUS DUE TO UNDERLYING CONDIT; PHH. COMPARISON: None TECHNIQUE: The left foot was examined in the AP, oblique, and lateral projections. FINDINGS: There is near complete destruction of the distal pharynx of the first digit on the left foot erosive changes extending to the interphalangeal joint. Soft tissue swelling of the first digit. Wound is als o present on the heel. There is swelling of the soft tissues of the heel with sclerosis of the inferi or calcaneus. No evidence of erosion of the calcaneus. IMPRESSION: 1. Findings of osteomyelitis involving the first digit distal phalanx with near complete erosion of the distal phalanx. Consider MRI of the foot for extent of destruction. 2. Flattened sclerotic appearance of the calcaneus without definitive evidence of erosion to suggest sesamoiditis involving the calcaneus.
== END | disposition home or self-care (01) ==
LOC: RADXRMAIN 14:55
PROVIDERS: ATTEND Nurse Practitioner Family
DX: E08.621 Diabetes mellitus due to underlying condition with foot ulcer (principal); L97.522 Non-pressure chronic ulcer of other part of left foot with fat layer exposed; L97.525 Non-pressure chronic ulcer of other part of left foot with muscle involvement without evidence of necrosis

== ENCOUNTER 2022-08-07 08:06 | Observation (INO) | payer MEDICARE, OTHER ==
[2022-08-07] MEDS ORDERED: ONDANSETRON 4 MG/2 ML VIAL IVP STA (08:12)
[2022-08-07] MEDS ORDERED: hydrALAZINE HCL 20 MG/ML 1 ML VIAL IVP STA ×2 (08:12→10:06)
--- NOTE | 2022-08-07 08:20 | ED ---
General Adult HPI - General Chief complaint: Recheck/Abnormal Lab/Rx Stated complaint: hypertension Time Seen by Provider: 08/07/22 08:06 Source: patient, EMS, RN notes reviewed Mode of arrival: EMS Limitations: no limitations - History of Present Illness Initial comments: 42-year-old male with a history of end-stage renal disease hypertension diabetes was about 30 minutes into his dialysis this morning when he was noted have a very elevated blood pressure over 200 systolic. Patient states she's having feeling well for the past 24 hours or so he did not take his blood pressure medication today. He was not complaining of any fevers chills or sweats he did have some nausea upon arrival here was instructed to give him oral blood pressure medications which she vomited up. He denies any abdominal pain or chest pain at this time this nausea vomiting and the finding of the elevated blood pressure. He was brought in by EMS. - Related Data Home Medications Medication Instructions Recorded Confirmed Acetaminophen [Tylenol 8 Hour] 650 mg PO Q6H PRN 05/09/20 11/03/20 Atorvastatin [Lipitor] 40 mg PO HS 05/09/20 11/03/20 Insulin Glargine,Hum.rec.anlog 10 unit SQ HS 05/09/20 11/03/20 [Lantus Solostar Pen] Isosorbide Dinitrate [Isordil] 10 mg PO TID 05/09/20 11/03/20 Nitroglycerin Sl Tabs [Nitrostat] 0.4 mg SUBLINGUAL Q5M PRN 05/09/20 11/03/20 amLODIPine [Norvasc] 10 mg PO DAILY 05/09/20 11/03/20 hydrALAZINE HCL [Apresoline] 100 mg PO TID 05/09/20 11/03/20 Calcium Acetate [PhosLo] 667 mg PO AC-TID 11/03/20 11/03/20 Cimetidine [Tagamet] 200 mg PO MOWEFR 11/03/20 11/03/20 Cimetidine [Tagamet] 400 mg PO SUTUTHSA 11/03/20 11/03/20 Furosemide [Lasix] 80 mg PO BID 11/03/20 11/03/20 Losartan Potassium [Cozaar] 100 mg PO DAILY 11/03/20 11/03/20 Sodium Bicarbonate Tab 650 mg PO QID PRN 11/03/20 11/03/20 carvediloL [Coreg] 50 mg PO BID 11/03/20 11/03/20 cloNIDine HCL [Catapres] 0.1 mg PO BID PRN 11/03/20 11/03/20 cloNIDine HCL [Catapres] 0.2 mg PO TID PRN 11/03/20 11/03/20 Previous Rx's Medication Instructions Recorded cloNIDine HCL [Catapres] 0.3 mg PO TID #90 tab 05/19/20 metOLazone [Zaroxolyn] 5 mg PO DAILY #30 tab 05/19/20 Allergies Allergy/AdvReac Type Severity Reaction Status Date / Time nickel AdvReac Rash/Hives Verified 08/07/22 08:16 Review of Systems ROS Statement: Those systems with pertinent positive or pertinent negative responses have been documented in the HPI. ROS Other: All systems not noted in ROS Statement are negative. Past Medical History Past Medical History: Coronary Artery Disease (CAD), Heart Failure, Eye Disorder, GERD/Reflux, Hyperlipidemia, Hypertension, Myocardial Infarction ([place]), Renal Disease, Respiratory Disorder Additional Past Medical History / Comment(s): Pt recently admitted to [facility] on 05/09/20 with acute on chronic CHF/amyloidosis with generalized anasarca/acute on chronic kidney injury/acute anemia/advanced CAD/valvular disease/severe pulmonary htn/abnormal liver test/hyperlipidemia. Other hx: IDDM type II, pt states informed he had kidney disease in Feb, 2020 then ESRD diagnosed 05/09/20 with hemodialysis M/W/F-missed Friday's dialysis d/t ride problem-last dialysis on 05/19/20, neuropathy bilateral feet, L foot ulcer with debridements, L eye blindness d/t diabetic retinopathy, ischemic cardiomyopathy, anasarca/lower leg edema. Last Myocardial Infarction Date:: 03/30/2018 History of Any Multi-Drug Resistant Organisms: None Reported Past Surgical History: Heart Catheterization With Stent Additional Past Surgical History / Comment(s): 05/17/20 R subclavian hemodialysis catheter, debridements L foot wound, R eye surgery-pt believes to remove cataract, SEAN fistula Additional Past Anesthesia/Blood Transfusion Reaction / Comment(s): During 3rd debridement L foot ulcer, pt had cardiac arrest. Date of Last Stent Placement:: 03/31/2018 Past Psychological History: No Psychological Hx Reported Smoking Status: Never smoker Past Alcohol Use History: None Reported Past Drug Use History: None Reported - Past Family History Mother Family Medical History: Diabetes Mellitus, Hyperlipidemia, Hypertension Father Family Medical History: Diabetes Mellitus, Hypertension General Exam - General Exam Comments Initial Comments: This is a well-developed molars awake alert oriented 4 male was actively vom iting. Limitations: no limitations General appearance: alert, anxious, in distress Head exam: Present: atraumatic, normocephalic, normal inspection Eye exam: Present: normal appearance, PERRL, EOMI. Absent: scleral icterus, conjunctival injection, periorbital swelling ENT exam: Present: normal exam, mucous membranes moist Neck exam: Present: normal inspection. Absent: tenderness, meningismus, lymphadenopathy Respiratory exam: Present: normal lung sounds bilaterally. Absent: respiratory distress, wheezes, rales, rhonchi, stridor Cardiovascular Exam: Present: regular rate, normal rhythm, normal heart sounds. Absent: systolic murmur, diastolic murmur, rubs, gallop, clicks GI/Abdominal exam: Present: soft, normal bowel sounds. Absent: distended, tenderness, guarding, rebound, rigid Extremities exam: Present: normal inspection, full ROM, normal capillary refill. Absent: tenderness, pedal edema, joint swelling, calf tenderness Back exam: Present: normal inspection Neurological exam: Present: alert, oriented X3, CN II-XII intact Psychiatric exam: Present: normal affect, anxious Skin exam: Present: warm, dry, intact, normal color. Absent: rash Course Vital Signs 08/07/22 08/07/22 08/07/22 08:06 08:30 08:40 Temperature 98.5 F Pulse Rate 94 90 91 Respiratory 18 17 17 Rate Blood Pressure 208/106 193/107 195/106 O2 Sat by Pulse 94 L 95 95 Oximetry 08/07/22 08/07/22 08/07/22 08:50 09:00 09:10 Temperature Pulse Rate 89 94 91 Respiratory 16 17 16 Rate Blood Pressure 190/99 156/109 186/89 O2 Sat by Pulse 95 94 L 95 Oximetry 08/07/22 08/07/22 08/07/22 09:20 09:30 09:40 Temperature Pulse Rate 89 91 90 Respiratory 15 16 15 Rate Blood Pressure 181/93 201/109 178/89 O2 Sat by Pulse 96 95 96 Oximetry 08/07/22 08/07/22 08/07/22 09:50 10:00 10:04 Temperature Pulse Rate 88 87 Respiratory 15 15 Rate Blood Pressure 178/86 187/93 201/102 O2 Sat by Pulse 95 94 L Oximetry 08/07/22 08/07/22 08/07/22 10:20 10:30 10:40 Temperature Pulse Rate 91 89 87 Respiratory 18 18 15 Rate Blood Pressure 196/93 185/91 170/83 O2 Sat by Pulse 95 95 95 Oximetry 08/07/22 10:50 Temperature Pulse Rate 88 Respiratory 20 Rate Blood Pressure 169/79 O2 Sat by Pulse 96 Oximetry Medical Decision Making - Medical Decision Making I did discuss the findings with patient and family patient is improved this time no more vomiting his blood pressure is improved. Patient will be admitted did discuss case with Dr. galaes also Dr. Greenfield will be consulted as well as cardiology. - Lab Data Result diagrams: 08/07/22 08:27 08/07/22 08:27 Lab Results 08/07/22 08/07/22 08/07/22 Range/Units 08:27 08:27 08:27 WBC 8.0 (3.8-10.6) k/uL RBC 3.93 L (4.30-5.90) m/uL Hgb 12.4 L (13.0-17.5) gm/dL Hct 39.0 (39.0-53.0) % MCV 99.3 (80.0-100.0) fL MCH 31.6 (25.0-35.0) pg MCHC 31.8 (31.0-37.0) g/dL RDW 16.6 H (11.5-15.5) % Plt Count 168 (150-450) k/uL MPV 10.6 Neutrophils % 86 % Lymphocytes % 7 % Monocytes % 6 % Eosinophils % 0 % Basophils % 0 % Neutrophils # 6.9 (1.3-7.7) k/uL Lymphocytes # 0.6 L (1.0-4.8) k/uL Monocytes # 0.5 (0-1.0) k/uL Eosinophils # 0.0 (0-0.7) k/uL Basophils # 0.0 (0-0.2) k/uL Hypochromasia Slight Anisocytosis Slight Macrocytosis Slight Sodium 140 (137-145) mmol/L Potassium 3.6 (3.5-5.1) mmol/L Chloride 98 (98-107) mmol/L Carbon Dioxide 25 (22-30) mmol/L Anion Gap 17 mmol/L BUN 38 H (9-20) mg/dL Creatinine 8.03 H* (0.66-1.25) mg/dL Est GFR (CKD-EPI)AfAm 9 (>60 ml/min/1.73 sqM) Est GFR (CKD-EPI)NonAf 8 (>60 ml/min/1.73 sqM) Glucose 134 H (74-99) mg/dL Calcium 9.1 (8.4-10.2) mg/dL Magnesium 2.6 H (1.6-2.3) mg/dL Total Bilirubin 1.4 H (0.2-1.3) mg/dL AST 38 (17-59) U/L ALT 40 (4-49) U/L Alkaline Phosphatase 261 H (38-126) U/L Creatine Kinase 111 (55-170) U/L Troponin I 0.113 H* (0.000-0.034) ng/mL Total Protein 8.1 (6.3-8.2) g/dL Albumin 4.5 (3.5-5.0) g/dL Lipase 32 (23-300) U/L - EKG Data -: EKG Interpreted by Me EKG shows normal: sinus rhythm EKG Comments: Sinus rhythm 89 NM interval 197 QRS duration 101 QT/QTC 409/456. Atrial enlargement evidence of LVH this is compared with an EKG dated 12/18/21 Critical Care Time Critical Care Time: Yes Total Critical Care Time: 39 Critical Care Time: Critical care time includes initial presentation labs x-rays multiple reevaluation the patient response to therapy discussion with family of the patient discussed with the main physician admission orders documentation the above Disposition Clinical Impression: Hypertensive emergency without congestive heart failure, Chronic renal failure, Vomiting, Elevated troponin Disposition: ADMITTED IP TO THIS HOSP Condition: Fair Referrals: Jj Galindo MD [Primary Care Provider] - 1-2 days Decision Date: 08/07/22 Decision Time: 11:15
[2022-08-07 08:37] LABS: Anisocytosis Slight; Basophils % (A) 0 %; Eosinophils % (A) 0 %; HGB 12.4 gm/dL (13.0-17.5); Hypochromasia Slight; Lymphocytes # (A) 0.6 k/uL (1.0-4.8); Lymphocytes % (A) 7 %; MCH 31.6 pg (25.0-35.0); MCHC 31.8 g/dL (31.0-37.0); MCV 99.3 fL (80.0-100.0); Macrocytosis Slight; Mean Platelet Volume 10.6; Monocytes # (A) 0.5 k/uL (0-1.0); Monocytes % (A) 6 %; Neutrophils # (A) 6.9 k/uL (1.3-7.7); Neutrophils % (A) 86 %; Platelet Count 168 k/uL (150-450); RBC 3.93 m/uL (4.30-5.90); RDW 16.6 % (11.5-15.5)
[2022-08-07 08:43] LABS: Albumin 4.5 g/dL (3.5-5.0); Calcium 9.1 mg/dL (8.4-10.2); Magnesium 2.6 mg/dL (1.6-2.3); Potassium 3.6 mmol/L (3.5-5.1); Total Bilirubin 1.4 mg/dL (0.2-1.3); Total Protein 8.1 g/dL (6.3-8.2)
[2022-08-07] MEDS ORDERED: METOCLOPRAMIDE 5 MG/ML 2 ML VIAL IVP STA (10:06)
[2022-08-07] MEDS ORDERED: ONDANSETRON 4 MG/2 ML VIAL IVP PRN (11:24)
[2022-08-07] MEDS ORDERED: NALOXONE 0.4 MG/ML 1 ML VIAL IV PRN (11:24)
[2022-08-07] MEDS ORDERED: ACETAMINOPHEN TAB 325 MG TAB PO PRN (11:27)
[2022-08-07] MEDS ORDERED: SODIUM BICARBONATE TAB 650 MG TAB PO PRN (11:27)
[2022-08-07] MEDS ORDERED: NITROGLYCERIN SL TABS 0.4 MG TAB SUBLINGUAL PRN (11:27)
[2022-08-07] MEDS ORDERED: cloNIDine HCL 0.2 MG TAB PO PRN (11:27)
[2022-08-07] MEDS ORDERED: SODIUM CHLORIDE 0.9% 1,000 ML IV SCH (11:30)
[2022-08-07] MEDS ORDERED: DICYCLOMINE 10 MG CAP PO PRN (12:06)
[2022-08-07] MEDS ORDERED: CALCIUM ACETATE 667 MG TAB PO SCH (12:30)
--- NOTE | 2022-08-07 14:53 | P.CRDCN ---
History of Present Illness Consult date: 08/07/22 History of present illness: patient comes to Hospital with severe uncontrolled hypertension. Has end-stage renal disease on hemodialysis. Is not able to take his medications secondary to nausea vomiting and comes in with hypertensive emergency. We are going to resume his medications and anticipate the blood pressure getting better controlled and be able to discharge him home. HISTORY OF PRESENT ILLNESS: This is a 42-year-old male with a past medical history significant for hypertension, end-stage renal disease on hemodialysis, cardiomyopathy, diabetes, congestive heart failure, and coronary artery disease with previous stenting. Patient follows in the office with Dr. Martines. We have been asked to see the patient in consultation for hypertension and abnormal troponins. Patient examined at the bedside. patient states he has been feeling nauseous and having episodes of vomiting over the past 2 days. He has been unable to keep down his blood pressure medications. He states last time he was able to keep down his and hypertensive medications were Friday morning. Patient states he went to dialysis this morning and was able to complete about 45 minutes of his session before it was terminated secondary to uncontrolled hypertension with a systolic blood pressure greater than 200. He was sent to the hospital for further evaluation. The patient's blood pressure is currently running in the 150s at the time of my examination. He denies any chest pain or pressure. He denies any shortness of breath. He states he is feeling pretty well at this time. * EKG reveals sinus mechanism with LVH * Laboratory data: WBC 8.0. Hemoglobin 12.4. Platelet count 168. Sodium 140. Potassium 3.6. BUN 38. Creatinine 8.03. Troponin 0.113 * Current home cardiac medications include amlodipine 5 mg at night, Zaroxolyn 5 mg daily, hydralazine 50 mg 3 times a day, Catapres 0.1 mg twice a day, carvedilol 50 mg twice a day, losartan 100 mg daily, Lasix 80 mg twice a day * Most recent echocardiogram obtained in April 2020 revealed ejection fraction 45-50%, moderate MR, severe TR, severe pulmonary hypertension * Cardiac catheterization history: 2018 at an outside facility with PCI to the LAD. Patient was also found to have 75% stenosis of first diagonal, 70% stenosis of first OM, 75% second OM, 70% 30 OM, 50% mid RCA. REVIEW OF SYSTEMS: At the time of my exam: CONSTITUTIONAL: Denies fever or chills. HEENT: Denies blurred vision, vision changes, or eye pain. Denies hemoptysis CARDIOVASCULAR: Denies chest pain. Denies orthopnea. Denies PND. Denies palpitations RESPIRATORY: Denies shortness of breath. GASTROINTESTINAL: Denies abdominal pain. Denies nausea or vomiting. HEMATOLOGIC: Denies bleeding disorders. GENITOURINARY: Denies any blood in urine. SKIN: Denies pruitis. Denies rash. PHYSICAL EXAM: VITAL SIGNS: Reviewed. GENERAL: Well-developed in no acute distress. HEENT: Head is normocephalic. Pupils are equal, round. Sclerae anicteric. Mucous membranes of the mouth are moist. Neck supple. No JVD or thyromegaly LUNGS: Respirations even and unlabored. Lungs diminished to auscultation bilaterally. HEART: Regular rate and rhythm. S1 and S2 heard. ABDOMEN: Soft. Nondistended. Nontender. EXTREMITIES: Normal range of motion. No clubbing or cyanosis. Peripheral pu lses intact. No lower extremity edema NEUROLOGIC: Awake and alert. Oriented x 3. ASSESSMENT: Nausea and vomiting Hypertensive emergency End stage renal disease on hemodialysis Abnormal troponin, likely secondary to above Mild ischemic cardiomyopathy Chronic heart failure with mildly reduced ejection fraction Coronary artery disease with previous stenting Hypertension Diabetes PLAN: Obtain 2D echo to assess cardiac structure and function Resume home cardiac medications Monitor blood pressure Trend troponins Further recommendations pending patient course Nurse practitioner note has been reviewed by physician. Signing provider agrees with the documented findings, assessment, and plan of care. Past Medical History Past Medical History: Coronary Artery Disease (CAD), Heart Failure, Eye Disorder, GERD/Reflux, Hyperlipidemia, Hypertension, Myocardial Infarction ([place]), Renal Disease, Respiratory Disorder Additional Past Medical History / Comment(s): Pt recently admitted to [facility] on 05/09/20 with acute on chronic CHF/amyloidosis with generalized anasarca/acute on chronic kidney injury/acute anemia/advanced CAD/valvular disease/severe pulmonary htn/abnormal liver test/hyperlipidemia. Other hx: IDDM type II, pt states informed he had kidney disease in Feb, 2020 then ESRD diagnosed 05/09/20 with hemodialysis M/W/F-missed Friday's dialysis d/t ride problem-last dialysis on 05/19/20, neuropathy bilateral feet, L foot ulcer with debridements, L eye bl indness d/t diabetic retinopathy, ischemic cardiomyopathy, anasarca/lower leg edema. Last Myocardial Infarction Date:: 03/30/2018 History of Any Multi-Drug Resistant Organisms: None Reported Past Surgical History: Heart Catheterization With Stent Additional Past Surgical History / Comment(s): 05/17/20 R subclavian hemodialysis catheter, debridements L foot wound, R eye surgery-pt believes to remove cataract, SEAN fistula Additional Past Anesthesia/Blood Transfusion Reaction / Comment(s): During 3rd debridement L foot ulcer, pt had cardiac arrest. Date of Last Stent Placement:: 03/31/2018 Past Psychological History: No Psychological Hx Reported Smoking Status: Never smoker Past Alcohol Use History: None Reported Past Drug Use History: None Reported - Past Family History Mother Family Medical History: Diabetes Mellitus, Hyperlipidemia, Hypertension Father Family Medical History: Diabetes Mellitus, Hypertension Medications and Allergies Home Medications Medication Instructions Recorded Confirmed Type Insulin Glargine,Hum.rec.anlog 10 unit SQ HS 05/09/20 08/07/22 History [Lantus Solostar Pen] Nitroglycerin Sl Tabs [Nitrostat] 0.4 mg SL Q5M PRN 05/09/20 08/07/22 History metOLazone [Zaroxolyn] 5 mg PO DAILY #30 tab 05/19/20 08/07/22 Rx Furosemide [Lasix] 80 mg PO BID 11/03/20 08/07/22 History Losartan Potassium [Cozaar] 100 mg PO DAILY 11/03/20 08/07/22 History carvediloL [Coreg] 50 mg PO BID 11/03/20 08/07/22 History cloNIDine HCL [Catapres] 0.1 mg PO BID 11/03/20 08/07/22 History Calcium Carbonate [Tums] 500 mg PO TID 08/07/22 08/07/22 History Dicyclomine [Bentyl] 10 mg PO TID PRN 08/07/22 08/07/22 History Ondansetron [Zofran] 4 mg PO Q8H PRN 08/07/22 08/07/22 History amLODIPine [Norvasc] 5 mg PO HS 08/07/22 08/07/22 History hydrALAZINE HCL [Apresoline] 50 mg PO TID 08/07/22 08/07/22 History Ondansetron Odt [Zofran Odt] 4 mg PO Q8HR PRN #20 tab 08/08/22 Rx Pantoprazole [Protonix] 40 mg PO BID 15 Days #30 tab 08/08/22 Rx Allergies Allergy/AdvReac Type Severity Reaction Status Date / Time nickel Allergy Rash/Hives Verified 08/07/22 12:43 Physical Exam Vitals: Vital Signs Temp Pulse Resp BP Pulse Ox 08/07/22 11:56 85 18 152/89 94 L 08/07/22 10:50 88 20 169/79 96 08/07/22 10:40 87 15 170/83 95 08/07/22 10:30 89 18 185/91 95 08/07/22 10:20 91 18 196/93 95 08/07/22 10:04 201/102 08/07/22 10:00 87 15 187/93 94 L 08/07/22 09:50 88 15 178/86 95 08/07/22 09:40 90 15 178/89 96 08/07/22 09:30 91 16 201/109 95 08/07/22 09:20 89 15 181/93 96 08/07/22 09:10 91 16 186/89 95 08/07/22 09:00 94 17 156/109 94 L 08/07/22 08:50 89 16 190/99 95 08/07/22 08:40 91 17 195/106 95 08/07/22 08:30 90 17 193/107 95 08/07/22 08:06 98.5 F 94 18 208/106 94 L Intake and Output 08/06/22 08/07/22 08/07/22 22:59 06:59 14:59 Other: Weight 79.379 kg Results 08/08/22 07:58 08/08/22 07:58 Cardiac Enzymes 08/07/22 08/07/22 Range/Units 08:27 08:27 AST 38 (17-59) U/L Troponin I 0.113 H* (0.000-0.034) ng/mL CBC 08/07/22 Range/Units 08:27 WBC 8.0 (3.8-10.6) k/uL RBC 3.93 L (4.30-5.90) m/uL Hgb 12.4 L (13.0-17.5) gm/dL Hct 39.0 (39.0-53.0) % Plt Count 168 (150-450) k/uL Comprehensive Metabolic Panel 08/07/22 Range/Units 08:27 Sodium 140 (137-145) mmol/L Potassium 3.6 (3.5-5.1) mmol/L Chloride 98 (98-107) mmol/L Carbon Dioxide 25 (22-30) mmol/L BUN 38 H (9-20) mg/dL Creatinine 8.03 H* (0.66-1.25) mg/dL Glucose 134 H (74-99) mg/dL Calcium 9.1 (8.4-10.2) mg/dL AST 38 (17-59) U/L ALT 40 (4-49) U/L Alkaline Phosphatase 261 H (38-126) U/L Total Protein 8.1 (6.3-8.2) g/dL Albumin 4.5 (3.5-5.0) g/dL Current Medications Generic Name Dose Route Start Last Admin Trade Name Freq PRN Reason Stop Dose Admin Amlodipine Besylate 5 mg 08/08/22 09:00 Amlodipine 5 Mg Tab PO DAILY [facility] Carvedilol 50 mg 08/07/22 17:30 Carvedilol 12.5 Mg Tab PO AC-BID [facility] Clonidine 0.1 mg 08/07/22 21:00 Clonidine Hcl 0.1 Mg Tab PO BID [facility] Dicyclomine HCl 10 mg 08/07/22 12:06 Dicyclomine 10 Mg Cap PO TID PRN GI UPSET Furosemide 80 mg 08/07/22 16:00 Furosemide 80 Mg Tab PO BID@0900,1600 [facility] Hydralazine HCl 50 mg 08/07/22 16:00 Hydralazine Hcl 50 Mg Tab PO TID [facility] Sodium Chloride 1,000 mls @ 20 mls/hr 08/07/22 11:30 Saline 0.9% IV .Q24H [facility] Insulin Detemir 10 unit 08/07/22 21:00 Insulin Detemir (Levemir) 100 Unit/Ml Syr SQ HS [facility] Losartan Potassium 100 mg 08/08/22 09:00 Losartan 50 Mg Tab PO DAILY [facility] Metolazone 5 mg 08/08/22 09:00 Metolazone 5 Mg Tab PO DAILY [facility] Naloxone HCl 0.2 mg 08/07/22 11:24 Naloxone 0.4 Mg/Ml 1 Ml Vial IV Q2M PRN Opioid Reversal Nitroglycerin 0.4 mg 08/07/22 11:27 Nitroglycerin Sl Tabs 0.4 Mg Tab SUBLINGUAL Q5M PRN Chest Pain Ondansetron HCl 4 mg 08/07/22 11:24 Ondansetron 4 Mg/2 Ml Vial IVP Q8HR PRN Nausea And Vomiting Pantoprazole Sodium 40 mg 08/08/22 09:00 Pantoprazole 40 Mg/10 Ml Vial IV DAILY KATHERINE Intake and Output 08/06/22 08/07/22 08/07/22 22:59 06:59 14:59 Other: Weight 79.379 kg Patient Weight 08/08/22 06:59 Weight 79.379 kg 08/07/22 08:27 08/07/22 08:27
[2022-08-07] MEDS ORDERED: cloNIDine HCL 0.1 MG TAB PO SCH (16:00)
[2022-08-07] MEDS ORDERED: hydrALAZINE HCL 50 MG TAB PO SCH (16:00)
[2022-08-07] MEDS ORDERED: ISOSORBIDE DINITRATE 10 MG TAB PO SCH (16:00)
[2022-08-07] MEDS ORDERED: hydrALAZINE HCL 20 MG/ML 1 ML VIAL IVP PRN (17:11)
[2022-08-07] MEDS: carvediloL 12.5 MG TAB PO SCH (18:01)
[2022-08-07] MEDS: hydrALAZINE HCL 50 MG TAB PO SCH (18:01)
[2022-08-07] MEDS: FUROSEMIDE 80 MG TAB PO SCH (18:01)
[2022-08-07] MEDS ORDERED: ATORVASTATIN 40 MG TAB PO SCH (21:00)
[2022-08-07] MEDS ORDERED: INSULIN DETEMIR (LEVEMIR) 100 UNIT/ML SYR SQ SCH (21:00)
[2022-08-07 21:03] LABS: Glucose,Whole Blood 174 mg/dL (70-110)
[2022-08-08] MEDS: hydrALAZINE HCL 50 MG TAB PO SCH ×3 (00:40→15:31)
[2022-08-08] MEDS: cloNIDine HCL 0.1 MG TAB PO SCH ×2 (00:40→09:57)
--- NOTE | 2022-08-08 04:33 | HP ---
HISTORY AND PHYSICAL CHIEF COMPLAINTS: Accelerated hypertension, vomiting, and chest pain. HISTORY OF PRESENT ILLNESS: This 42-year-old gentleman with past medical history of CHF, history of GERD, hypertension, hyperlipidemia, being followed by Dr. Galindo in outpatient, is complaining of significant elevated blood pressure, 30 minutes in the dialysis over 200 systolic. Patient is also having chest pain, not feeling well and the patient is vomiting. The patient came to [facility] and was admitted for evaluation and treatment. The blood pressure was found to be 115/89. There is no history of any fever, rigors, or chills at this time. PAST MEDICAL HISTORY: History of hemodialysis, CHF, and multiple other medical issues reviewed from the chart, chart reviewed. HOME MEDICATIONS: Again reviewed, Norvasc, doses and rest of medication noted. ALLERGIES: Nickel. FAMILY HISTORY: History of diabetes, hypertension, hyperlipidemia. SOCIAL HISTORY: No history of smoking or alcohol. REVIEW OF SYSTEMS: A 14-point review is negative as mentioned earlier. PHYSICAL EXAMINATION: VITAL SIGNS: Pulse 85, blood pressure 152/89, and respirations 18. HEENT: Conjunctivae normal. NECK: No jugular venous distention. No carotid bruit. CARDIOVASCULAR: S1, S2 muffled. RESPIRATIONS: Diminished at the bases. No rhonchi, no crackles. ABDOMEN: Soft, nontender. LEGS: No edema, no swelling. NERVOUS SYSTEM: No focal deficits. SKIN: No ulcer or rash. JOINTS: No active deforming arthropathy. LABORATORY DATA: Hemoglobin 12.4, creatinine 8.0, rest of the labs noted. ASSESSMENT: 1. Accelerated hypertension. 2. Chronic renal failure, hemodialysis. 3. Hypertension. 4. Congestive heart failure. 5. Vomiting, possible acute gastritis. 6. Multiple medical problems. RECOMMENDATIONS: Recommend to continue current medications and symptomatic treatment. Monitor blood pressure closely, p.r.n. medications. Follow with Nephrology for hemodialysis. Guarded prognosis. Further recommendations to follow. MMODL / IJN: [id number] /
[2022-08-08 06:06] LABS: Glucose,Whole Blood 79 mg/dL (70-110)
[2022-08-08] MEDS: carvediloL 12.5 MG TAB PO SCH (06:44)
[2022-08-08 08:49] LABS: Anisocytosis Slight; Basophils % (A) 1 %; Eosinophils # (A) 0.1 k/uL (0-0.7); Eosinophils % (A) 1 %; HCT 36.5 % (39.0-53.0); HGB 11.7 gm/dL (13.0-17.5); Hypochromasia Moderate; Lymphocytes # (A) 1.4 k/uL (1.0-4.8); Lymphocytes % (A) 25 %; MCH 32.4 pg (25.0-35.0); MCHC 31.9 g/dL (31.0-37.0); MCV 101.3 fL (80.0-100.0); Macrocytosis Slight; Monocytes # (A) 0.5 k/uL (0-1.0); Monocytes % (A) 9 %; Neutrophils # (A) 3.5 k/uL (1.3-7.7); Neutrophils % (A) 62 %; Platelet Count 132 k/uL (150-450); RBC 3.61 m/uL (4.30-5.90); RDW 16.4 % (11.5-15.5); WBC 5.6 k/uL (3.8-10.6)
[2022-08-08 09:00] LABS: Calcium 8.3 mg/dL (8.4-10.2); Potassium 4.1 mmol/L (3.5-5.1)
[2022-08-08] MEDS ORDERED: FAMOTIDINE 20 MG TAB PO SCH (09:00)
[2022-08-08] MEDS ORDERED: PANTOPRAZOLE 40 MG/10 ML VIAL IV SCH (09:00)
[2022-08-08] MEDS ORDERED: amLODIPine 5 MG TAB PO SCH (09:00)
[2022-08-08] MEDS ORDERED: LOSARTAN 50 MG TAB PO SCH (09:00)
[2022-08-08] MEDS ORDERED: amLODIPine 10 MG TAB PO SCH (09:00)
[2022-08-08] MEDS ORDERED: metOLazone 5 MG TAB PO SCH (09:00)
[2022-08-08] MEDS: FUROSEMIDE 80 MG TAB PO SCH ×2 (09:56→15:31)
--- NOTE | 2022-08-08 10:39 | P.PN ---
Subjective Progress Note Date: 08/08/22 HISTORY OF PRESENT ILLNESS: This is a 42-year-old male with a past medical history significant for hypertension, end-stage renal disease on hemodialysis, cardiomyopathy, diabetes, congestive heart failure, and coronary artery disease with previous stenting. Patient follows in the office with Dr. Martines. We have been asked to see the patient in consultation for hypertension and abnormal troponins. Patient examined at the bedside. patient states he has been feeling nauseous and having episodes of vomiting over the past 2 days. He has been unable to keep down his blood pressure medications. He states last time he was able to keep down his and hypertensive medications were Friday. Patient states he went to dialysis this morning and was able to complete about 45 minutes of his session before it was terminated secondary to uncontrolled hypertension with a systolic blood pressure greater than 200. He was sent to the hospital for further evaluation. The patient's blood pressure is currently running in the 150s at the time of my examination. He denies any chest pain or pressure. He denies any shortness of breath. He states he is feeling pretty well at this time. * EKG reveals sinus mechanism with LVH * Laboratory data: WBC 8.0. Hemoglobin 12.4. Platelet count 168. Sodium 140. Potassium 3.6. BUN 38. Creatinine 8.03. Troponin 0.113 * Current home cardiac medications include amlodipine 5 mg at night, Zaroxolyn 5 mg daily, hydralazine 50 mg 3 times a day, Catapres 0.1 mg twice a day, carvedilol 50 mg twice a day, losartan 100 mg daily, Lasix 80 mg twice a day * Most recent echocardiogram obtained in April 2020 revealed ejection fraction 45-50%, moderate MR, severe TR, severe pulmonary hypertension * Cardiac catheterization history: 2018 at an outside facility with PCI to the LAD. Patient was also found to have 75% stenosis of first diagonal, 70% stenosis of first OM, 75% second OM, 70% 30 OM, 50% mid RCA. 08/08/2022 Patient examined this morning at the bedside. Patient denies any chest pain or pressure. He denies any shortness of breath. He denies any further episodes of nausea or vomiting and states he has been able to keep his medications down. Patient's blood pressures last night were elevated in the 200s. However this morning his blood pressure is running in the 140s. He reports that he had hemodialysis as well last night. PHYSICAL EXAM: VITAL SIGNS: Reviewed. GENERAL: Well-developed in no acute distress. HEENT: Head is normocephalic. Pupils are equal, round. Sclerae anicteric. Mucous membranes of the mouth are moist. Neck supple. No JVD or thyromegaly LUNGS: Respirations even and unlabored. Lungs diminished to auscultation bilaterally. HEART: Regular rate and rhythm. S1 and S2 heard. ABDOMEN: Soft. Nondistended. Nontender. EXTREMITIES: Normal range of motion. No clubbing or cyanosis. Peripheral pulses intact. No lower extremity edema NEUROLOGIC: Awake and alert. Oriented x 3. ASSESSMENT: Nausea and vomiting Hypertensive emergency End stage renal disease on hemodialysis Abnormal troponin, likely secondary to above Mild ischemic cardiomyopathy Chronic heart failure with mildly reduced ejection fraction Coronary artery disease with previous stenting Hypertension Diabetes PLAN: 2-D echo ordered. Await results Continue to monitor blood pressure If patient remains stable, he may be discharged home this afternoon from a cardiac standpoint and follow up on an outpatient basis Nurse practitioner note has been reviewed by physician. Signing provider agrees with the documented findings, assessment, and plan of care. Objective - Vital Signs Vital signs: Vital Signs Temp 98.5 F 08/08/22 03:19 Pulse 66 08/08/22 03:19 Resp 19 08/08/22 03:19 BP 148/77 08/08/22 06:45 Pulse Ox 97 08/08/22 03:19 FiO2 Intake & Output 08/07/22 08/08/22 08/08/22 18:59 06:59 18:59 Intake Total 118 Balance 118 Weight 79.379 kg 74.5 kg Intake: Oral 118 Other: Voiding Method Toilet # Voids 2 - Labs CBC & Chem 7: 08/08/22 07:58 08/08/22 07:58 Labs: Abnormal Lab Results - Last 24 Hours (Table) 08/07/22 08/08/22 08/08/22 Range/Units 21:00 07:58 07:58 RBC 3.61 L (4.30-5.90) m/uL Hgb 11.7 L (13.0-17.5) gm/dL Hct 36.5 L (39.0-53.0) % MCV 101.3 H (80.0-100.0) fL RDW 16.4 H (11.5-15.5) % Plt Count 132 L (150-450) k/uL BUN 34 H (9-20) mg/dL Creatinine 6.28 H (0.66-1.25) mg/dL POC Glucose (mg/dL) 174 H (70-110) mg/dL Calcium 8.3 L (8.4-10.2) mg/dL
--- NOTE | 2022-08-08 10:55 | CA ---
Transthoracic Echo Report Name: Reggie Aceves Age: 42 Gender: M : 1980 Exam Date: 08/07/2022 16:12 Exam Location: [place] [facility] Ht (in): Wt (lb): Ordering Physician: Mari Dove Attending/Referring Phys: [id number], Petty Special Agent In Charge Kindra Campos, DILIA Procedure CPT: Indications: abnormal trops, LV function Cardiac Hx: Technical Quality: Contrast 1: Total Dose (mL): Contrast 2: Total Dose (mL): MEASUREMENTS (Male / Female) Normal Values 2D ECHO LV Diastolic Diameter PLAX 4.0 cm 4.2 - 5.9 / 3.9 - 5.3 cm LV Systolic Diameter PLAX 3.2 cm IVS Diastolic Thickness 1.7 cm 0.6 - 1.0 / 0.6 - 0.9 cm LVPW Diastolic Thickness 2.4 cm 0.6 - 1.0 / 0.6 - 0.9 cm LV Relative Wall Thickness 1.0 RV Internal Dim ED PLAX 3.0 cm LA Systolic Diameter LX 3.4 cm 3.0 - 4.0 / 2.7 - 3.8 cm M-MODE Aortic Root Diameter MM 3.2 cm LA Systolic Diameter MM 4.1 cm LA Ao Ratio MM 1.3 MV E Point Septal Separation 0.7 cm AV Cusp Separation MM 2.2 cm DOPPLER MV Area PHT 7.5 cm??? Mitral E Point Velocity 118.0 cm/s Mitral A Point Velocity 64.4 cm/s Mitral E to A Ratio 1.8 MV Deceleration Time 101.5 ms MV E' Velocity 4.5 cm/s Mitral E to MV E' Ratio 26.0 TR Peak Velocity 412.6 cm/s TR Peak Gradient 68.1 mmHg Right Ventricular Systolic Press 73.1 mmHg FINDINGS Left Ventricle Left ventricular ejection fraction is estimated at 45 %. Global hypokinesis. Severely increased left ventricular wall thickness. Right Ventricle Normal right ventricular size and function. Severe pulmonary hypertension. Right Atrium Normal right atrial size. Left Atrium Mildly increased left atrial area. Mitral Valve Structurally normal mitral valve. Mild mitral regurgitation. Aortic Valve Trileaflet aortic valve. Tricuspid Valve Structurally normal tricuspid valve. Kyfjesic-[id number] tricuspid regurgitation. Pulmonic Valve Structurally normal pulmonic valve. Mild pulmonic regurgitation. Pericardium Normal pericardium. Aorta Normal size aortic root and proximal ascending aorta. CONCLUSIONS Left ventricular ejection fraction 45% with global hypokinesis Severely increased left ventricular wall thickness, 1.7 cm RVSP 73 Mild mitral regurgitation Moderate to severe tricuspid regurgitation Mild pulmonic regurgitation Previewed by: Dr. [place] Nguyễn DO (Electronically Signed) Final Date: 08 August 2022 10:53
[2022-08-08 11:13] VITALS: TEMP 98
[2022-08-08 11:54] LABS: Glucose,Whole Blood 105 mg/dL (70-110)
--- NOTE | 2022-08-08 13:46 | P.NPCON ---
History of Present Illness - Reason for Consult end stage renal disease - History of Present Illness Patient is a 42-year-old male with end-stage renal disease on hemodialysis on a Friday schedule at the [facility]. He is admitted to the hospital with uncontrolled hypertension. Patient states that he had significant nausea and vomiting and was not able to take oral medications and therefore his blood pressure was significantly elevated. Systolic blood pressure at 204/113 initially. Patient had a hemodialysis treatment yesterday with UF of about 2.5 L. His blood pressure is much better controlled now. Patient currently denies any significant nausea vomiting and has been able to take oral medications. Review of Systems As per HPI Past Medical History Past Medical History: Coronary Artery Disease (CAD), Heart Failure, Eye Disorder, GERD/Reflux, Hyperlipidemia, Hypertension, Myocardial Infarction ([place]), Renal Disease, Respiratory Disorder Additional Past Medical History / Comment(s): Pt recently admitted to [facility] on 05/09/20 with acute on chronic CHF/amyloidosis with generalized anasarca/acute on chronic kidney injury/acute anemia/advanced CAD/valvular disease/severe pulmonary htn/abnormal liver test/hyperlipidemia. Other hx: IDDM type II, pt states informed he had kidney disease in Feb, 2020 then ESRD diagnosed 05/09/20 with hemodialysis M/W/F, neuropathy bilateral feet, L foot ulcer with debridements, L eye blindness d/t diabetic retinopathy, ischemic cardiomyopathy, anasarca/lower leg edema. Last Myocardial Infarction Date:: 03/30/2018 History of Any Multi-Drug Resistant Organisms: None Reported Past Surgical History: Heart Catheterization With Stent Additional Past Surgical History / Comment(s): 05/17/20 R subclavian hemodialysis catheter, debridements L foot wound, R eye surgery-pt believes to remove cataract, SEAN fistula Additional Past Anesthesia/Blood Transfusion Reaction / Comment(s): During 3rd debridement L foot ulcer, pt had cardiac arrest. Date of Last Stent Placement:: 03/31/2018 Past Psychological History: No Psychological Hx Reported Smoking Status: Never smoker Past Alcohol Use History: None Reported Past Drug Use History: None Reported - Past Family History Mother Family Medical History: Diabetes Mellitus, Hyperlipidemia, Hypertension Father Family Medical History: Diabetes Mellitus, Hypertension Medications and Allergies Home Medications Medication Instructions Recorded Confirmed Type Insulin Glargine,Hum.rec.anlog 10 unit SQ HS 05/09/20 08/07/22 History [Lantus Solostar Pen] Nitroglycerin Sl Tabs [Nitrostat] 0.4 mg SL Q5M PRN 05/09/20 08/07/22 History metOLazone [Zaroxolyn] 5 mg PO DAILY #30 tab 05/19/20 08/07/22 Rx Furosemide [Lasix] 80 mg PO BID 11/03/20 08/07/22 History Losartan Potassium [Cozaar] 100 mg PO DAILY 11/03/20 08/07/22 History carvediloL [Coreg] 50 mg PO BID 11/03/20 08/07/22 History cloNIDine HCL [Catapres] 0.1 mg PO BID 11/03/20 08/07/22 History Calcium Carbonate [Tums] 500 mg PO TID 08/07/22 08/07/22 History Dicyclomine [Bentyl] 10 mg PO TID PRN 08/07/22 08/07/22 History Doxycycline Hyclate 100 mg PO DAILY 08/07/22 08/07/22 History Ondansetron [Zofran] 4 mg PO Q8H PRN 08/07/22 08/07/22 History amLODIPine [Norvasc] 5 mg PO HS 08/07/22 08/07/22 History hydrALAZINE HCL [Apresoline] 50 mg PO TID 08/07/22 08/07/22 History Allergies Allergy/AdvReac Type Severity Reaction Status Date / Time nickel Allergy Rash/Hives Verified 08/07/22 12:43 Physical Exam Vitals: Vital Signs Temp Pulse Pulse Resp BP BP Pulse Ox 08/08/22 08:00 98.0 F 64 14 157/81 08/08/22 06:45 148/77 08/08/22 03:19 98.5 F 66 19 138/65 97 08/08/22 01:43 97.4 F L 66 18 204/113 08/08/22 00:00 98.2 F 78 18 204/113 97 08/07/22 20:00 71 19 165/81 98 08/07/22 19:45 98.4 F 72 18 165/88 96 08/07/22 17:59 79 20 192/102 98 Intake and Output 08/07/22 08/08/22 08/08/22 22:59 06:59 14:59 Intake Total 118 Balance 118 Intake: Oral 118 Other: Voiding Method Toilet Toilet # Voids 2 Weight 79.379 kg 74.5 kg Awake, comfortable, not in any acute distress Examination of the heart S1 and S2 Examination of the lungs bilateral breath sounds are heard Abdomen is soft nontender Examination of the lower extremities shows no significant edema V[employer]IN[employer]IST exam grossly intact Results - Lab Results Most recent lab results Calcium 8.3 mg/dL (8.4-10.2) L 08/08/22 07:58 Magnesium 2.6 mg/dL (1.6-2.3) H 08/07/22 08:27 08/08/22 07:58 08/08/22 07:58 Assessment and Plan Assessment: 1. End-stage renal disease on hemodialysis on a Friday schedule 2. Hypertension uncontrolled partly volume sensitive and mainly secondary to patient not been able to take antihypertensive medications 3. Nausea and vomiting currently resolved 4. CK D mineral bone disorder Plan: Patient can be discharged from nephrology standpoint and follow-up as outpatient for hemodialysis.
[2022-08-08 15:44] VITALS: PULSE 84; RESP 18
[2022-08-08 16:53] VITALS: BP 176/84
[2022-08-09] MEDS ORDERED: FAMOTIDINE 20 MG TAB PO SCH (09:00)
--- NOTE | 2022-08-09 21:02 | DS ---
DISCHARGE SUMMARY FINAL DIAGNOSES: 1. Accelerated hypertension. 2. Chronic renal failure, hemodialysis. 3. Hypertension history. 4. Congestive heart failure history. 5. Vomiting, possible acute gastritis. 6. Multiple medical problems. DISCHARGE DISPOSITION: The patient will be discharged home with guarded prognosis cleared by Nephrology. HISTORY OF PRESENT ILLNESS: This is a 42-year-old gentleman with a past medical history of multiple medical problems, who was admitted with accelerated hypertension with blood pressure in 200s and vomiting, treated symptomatically, improved significantly. Nephrology saw the patient. PHYSICAL EXAMINATION: VITAL SIGNS: Stable. CARDIOVASCULAR: S1, S2. ABDOMEN: Soft. NERVOUS SYSTEM: No focal deficits. The patient is being recommended to continue the home dose of medications including Zaroxolyn, Coreg, clonidine, losartan, and Norvasc as well as hydralazine. Follow up with Dr. Galindo and Dr. Hebert as recommended. MMOPALL / CHELON: [id number] /
== END 2022-08-08 15:43 | disposition home or self-care (01) ==
LOC: EC 08:06 → 3SCARD 11:30
PROVIDERS: ADMIT Internal Medicine; ATTEND Internal Medicine
DX: I16.1 Hypertensive emergency (principal); I13.2 Hypertensive heart and chronic kidney disease with heart failure and with stage 5 chronic kidney disease, or end stage renal disease; N18.6 End stage renal disease; I50.22 Chronic systolic (congestive) heart failure; I25.5 Ischemic cardiomyopathy; E11.319 Type 2 diabetes mellitus with unspecified diabetic retinopathy without macular edema; E11.22 Type 2 diabetes mellitus with diabetic chronic kidney disease; Z99.2 Dependence on renal dialysis; E11.40 Type 2 diabetes mellitus with diabetic neuropathy, unspecified; R77.8 Other specified abnormalities of plasma proteins; E85.9 Amyloidosis, unspecified; R11.10 Vomiting, unspecified; D63.1 Anemia in chronic kidney disease; I25.10 Atherosclerotic heart disease of native coronary artery without angina pectoris; E78.5 Hyperlipidemia, unspecified; E83.89 Other disorders of mineral metabolism; Z20.822 Contact with and (suspected) exposure to COVID-19; Z86.74 Personal history of sudden cardiac arrest; H54.62 Unqualified visual loss, left eye, normal vision right eye; K21.9 Gastro-esophageal reflux disease without esophagitis; I25.2 Old myocardial infarction; Z95.5 Presence of coronary angioplasty implant and graft; Z98.890 Other specified postprocedural states; Z83.3 Family history of diabetes mellitus; Z83.438 Family history of other disorder of lipoprotein metabolism and other lipidemia; Z82.49 Family history of ischemic heart disease and other diseases of the circulatory system; Z79.4 Long term (current) use of insulin; Z79.899 Other long term (current) drug therapy; Z91.09 Other allergy status, other than to drugs and biological substances
CPT/HCPCS: 90935; 96375 ×2; 96376; 96374; 99291; 36415; 93005; 93306; 80053; 80048; 82550; 83690; 83735; 84484; 85025 ×2; 87635; G0378 ×2; J0360; J2765; J2405; C9113

== ENCOUNTER 2022-08-20 05:49 | Day surgery (SDC) | payer MEDICARE, OTHER ==
[2022-08-19 10:17] VITALS: BMI 23.7
[2022-08-20] MEDS ORDERED: LIDOCAINE 1% (10MG/ML) FOR IV START INTRADERMA PRN (05:53)
[2022-08-20] MEDS ORDERED: LACTATED RINGERS 1,000 ML IV SCH (05:53)
[2022-08-20 06:50] LABS: Glucose,Whole Blood 95 mg/dL (70-110)
[2022-08-20] MEDS ORDERED: SODIUM CHLORIDE 0.9% 1,000 ML IV ONE (06:56)
[2022-08-20 06:58] VITALS: TEMP 97.4
[2022-08-20] MEDS ORDERED: LIDOCAINE 2% INJ 20 MG/ML (2 ML VIAL) ONE (06:59)
[2022-08-20] MEDS ORDERED: PROPOFOL 10 MG/ML 20 ML VIAL IV ONE (06:59)
--- NOTE | 2022-08-20 07:22 | P.PCN ---
Date of Procedure: 08/20/22 Procedure(s) Performed: Brief history: Patient is a pleasant 42-year-old male scheduled for an elective upper endoscopy as well as colonoscopy as a part of evaluation of GERD and change in bowel habits. His been having alternating diarrhea and constipation for the last several months duration. Procedure performed: Esophagogastroduodenoscopy with biopsy Colonoscopy Preoperative diagnosis: GERD and change in bowel Anesthesia: MAC Procedure: After informed consent was obtained from the patient was brought into the endoscopy unit and IV sedation was administered by anesthesia under continuous monitoring. Initially upper endoscopy was done. The Olympus GF 160 video endoscope was inserted inserted into the mouth and esophagus intubated without any difficulty and was gradually advanced into the stomach and duodenum and carefully examined. The bulb and second part of the duodenum appeared normal. The scope was then withdrawn into the stomach adequately insufflated with air and upon careful examination the antrum and mild gastritis and biopsies were done from this area. The body, cardia and fundus appeared normal. The scope was then withdrawn into the esophagus. The GE junction was located at 40 cm to the incisors. It appeared regular with no erythema erosions or ulcerations. Rest of the esophagus appeared normal. Patient tolerated the procedure well. At this time the patient continued to remain sedation. Initial digital rectal examination was normal. Olympus CF 160 video colonoscope was then inserted into the rectum and gradually advanced to the cecum without any difficulty. Careful examination was performed as the scope was gradually being withdrawn. The prep was fair. The cecum had solid stool which could not be adequately visualized.. The ascending colon, transverse colon, descending colon, sigmoid colon and rectum appeared normal. Retroflexion was performed in the rectum and no lesions were noted. Patient tolerated the procedure well. Impression: 1. Of endoscopy revealed mild antral gastritis but no evidence of esophagitis or peptic ulcer disease 2. Colonoscopy was within normal limits with no evidence of colorectal neoplasia Recommendations: Findings of this examination were discussed with the patient as well as his family. He was advised to follow with the biopsy results. He will continue with her current medications and follow antireflux measures. Recommend repeat screening colonoscopy in 10 years.]
[2022-08-20 07:27] VITALS: RESP 18
[2022-08-20 07:48] VITALS: PULSE 63
[2022-08-20 08:12] VITALS: BP 150/68
== END 2022-08-20 08:31 | disposition home or self-care (01) ==
LOC: ORWHC2ENDO 05:49
PROVIDERS: ATTEND Internal Medicine Gastroenterology
DX: R19.4 Change in bowel habit (principal); K52.9 Noninfective gastroenteritis and colitis, unspecified; K29.50 Unspecified chronic gastritis without bleeding; K21.9 Gastro-esophageal reflux disease without esophagitis; E78.5 Hyperlipidemia, unspecified; I10 Essential (primary) hypertension; I25.10 Atherosclerotic heart disease of native coronary artery without angina pectoris; E11.9 Type 2 diabetes mellitus without complications
CPT/HCPCS: 88305; 45378; 43239; J2704; J2001

== ENCOUNTER 2024-03-08 00:40 | Inpatient (IN) | payer MEDICARE, OTHER ==
[2024-03-08] MEDS: ONDANSETRON 4 MG/2 ML VIAL IVP STA (03:05)
[2024-03-08] MEDS: FAMOTIDINE 20 MG/2 ML VIAL IV STA (03:05)
[2024-03-08] MEDS: SODIUM CHLORIDE 0.9% 500 ML 500 ML IV STA (03:06)
[2024-03-08 03:23] LABS: Anisocytosis Slight; Basophils % (A) 0 %; Eosinophils % (A) 0 %; HCT 35.6 % (39.0-53.0); HGB 11.4 gm/dL (13.0-17.5); Lymphocytes # (A) 0.7 k/uL (1.0-4.8); Lymphocytes % (A) 8 %; MCH 31.6 pg (25.0-35.0); MCHC 32.1 g/dL (31.0-37.0); MCV 98.3 fL (80.0-100.0); Macrocytosis Slight; Mean Platelet Volume 11.3; Monocytes # (A) 0.5 k/uL (0-1.0); Monocytes % (A) 6 %; Neutrophils # (A) 6.7 k/uL (1.3-7.7); Neutrophils % (A) 84 %; Platelet Count 134 k/uL (150-450); RBC 3.62 m/uL (4.30-5.90); RDW 17.5 % (11.5-15.5)
--- NOTE | 2024-03-08 03:40 | ED ---
General Adult HPI - General Source: patient Mode of arrival: ambulatory Limitations: no limitations <Jose Montana - Last Filed: 03/08/24 04:58> <Gilberto Nova - Last Filed: 03/08/24 06:07> - General Chief complaint: Nausea/Vomiting/Diarrhea Stated complaint: NVD high blood sugar chills Time Seen by Provider: 03/08/24 02:07 - History of Present Illness Initial comments: 43-year-old male presenting with chief complaint of nausea and vomiting. Symptoms started this morning and seem to worsen throughout the day. Patient admits to frequent GERD today, states that he has had multiple bouts of acidity and regurgitation to the back of the throat. He admits to a burning epigastric pain. He also admits to fatigue. Patient checked his blood sugar at home this evening and it was above 400. Patient receives dialysis, last dialysis was on Friday. Patient thought that he might of had elevated blood pressure this evening, he took a Catapres just prior to arrival thinking it would alleviate his symptoms, it did not. (Jose Montana) - Related Data Home Medications Medication Instructions Recorded Confirmed Insulin Glargine,Hum.rec.anlog 10 unit SQ HS 05/09/20 08/19/22 [Lantus Solostar Pen] Nitroglycerin Sl Tabs [Nitrostat] 0.4 mg SL Q5M PRN 05/09/20 08/19/22 Furosemide [Lasix] 80 mg PO BID 11/03/20 08/19/22 Losartan Potassium [Cozaar] 100 mg PO DAILY 11/03/20 08/19/22 carvediloL [Coreg] 50 mg PO BID 11/03/20 08/19/22 cloNIDine HCL [Catapres] 0.1 mg PO BID PRN 11/03/20 08/19/22 Calcium Carbonate [Tums] 500 mg PO TID 08/07/22 08/19/22 Dicyclomine [Bentyl] 10 mg PO TID PRN 08/07/22 08/19/22 Ondansetron [Zofran] 4 mg PO Q8H PRN 08/07/22 08/19/22 amLODIPine [Norvasc] 5 mg PO HS 08/07/22 08/19/22 hydrALAZINE HCL [Apresoline] 50 mg PO TID 08/07/22 08/19/22 Previous Rx's Medication Instructions Recorded metOLazone [Zaroxolyn] 5 mg PO DAILY #30 tab 05/19/20 Pantoprazole [Protonix] 40 mg PO BID 15 Days #30 tab 08/08/22 Allergies Allergy/AdvReac Type Severity Reaction Status Date / Time nickel Allergy Rash/Hives Verified 08/20/22 06:28 Review of Systems ROS Other: All systems not noted in ROS Statement are negative. <Jose Montana - Last Filed: 03/08/24 04:58> ROS Other: All systems not noted in ROS Statement are negative. <Gilberto Nova - Last Filed: 03/08/24 06:07> ROS Statement: Those systems with pertinent positive or pertinent negative responses have been documented in the HPI. Past Medical History Past Medical History: Coronary Artery Disease (CAD), Heart Failure, Eye Disorder, GERD/Reflux, Hyperlipidemia, Hypertension, Myocardial Infarction ([place]), Renal Disease, Respiratory Disorder Additional Past Medical History / Comment(s): Pt recently admitted to [facility] on 05/09/20 with acute on chronic CHF/amyloidosis with generalized anasarca/acute on chronic kidney injury/acute anemia/advanced CAD/valvular disease/severe pulmonary htn/abnormal liver test/hyperlipidemia. Other hx: IDDM type II, pt states informed he had kidney disease in Feb, 2020 then ESRD diagnosed 05/09/20 with hemodialysis M/W/F,neuropathy bilateral feet, L foot ulcer with debridements, L eye blindness d/t diabetic retinopathy, ischemic cardiomyopathy, anasarca/lower leg edema. Last Myocardial Infarction Date:: 03/30/2018 History of Any Multi-Drug Resistant Organisms: None Reported Past Surgical History: Heart Catheterization With Stent Additional Past Surgical History / Comment(s): 05/17/20 R subclavian hemodialysis catheter, debridements L foot wound, R eye surgery-pt believes to remove cataract, SEAN fistula Additional Past Anesthesia/Blood Transfusion Reaction / Comment(s): During 3rd debridement L foot ulcer, pt had cardiac arrest. Date of Last Stent Placement:: 03/31/2018 Past Psychological History: No Psychological Hx Reported Smoking Status: Never smoker Past Alcohol Use History: None Reported Past Drug Use History: None Reported - Past Family History Mother Family Medical History: Diabetes Mellitus, Hyperlipidemia, Hypertension Father Family Medical History: Diabetes Mellitus, Hypertension <Jose Montana - Last Filed: 03/08/24 04:58> General Exam Limitations: no limitations General appearance: alert, in no apparent distress Head exam: Present: atraumatic, normocephalic Eye exam: Present: normal appearance, EOMI Neck exam: Present: normal inspection. Absent: meningismus Respiratory exam: Present: normal lung sounds bilaterally. Absent: respiratory distress, wheezes, rales, rhonchi, stridor Cardiovascular Exam: Present: regular rate, normal rhythm, normal heart sounds. Absent: systolic murmur, diastolic murmur, rubs, gallop, clicks Neurological exam: Present: alert, oriented X3 Psychiatric exam: Present: normal affect, normal mood Skin exam: Present: normal color <Jose Montana - Last Filed: 03/08/24 04:58> Course Vital Signs 03/08/24 03/08/24 03/08/24 00:50 02:34 03:00 Temperature 98.2 F Pulse Rate 86 81 80 Respiratory 18 16 16 Rate Blood Pressure 92/51 223/113 220/104 O2 Sat by Pulse 99 99 98 Oximetry 03/08/24 03/08/24 03/08/24 03:30 04:00 04:30 Temperature Pulse Rate 91 84 82 Respiratory 20 18 18 Rate Blood Pressure 224/108 218/116 196/103 O2 Sat by Pulse 97 97 Oximetry 03/08/24 04:50 Temperature Pulse Rate 80 Respiratory 16 Rate Blood Pressure 149/81 O2 Sat by Pulse 97 Oximetry Medical Decision Making - Lab Data Result diagrams: 03/08/24 02:59 03/08/24 02:59 <Jose Montana - Last Filed: 03/08/24 04:58> - Lab Data Result diagrams: 03/08/24 02:59 03/08/24 02:59 <Gilberto Nova - Last Filed: 03/08/24 06:07> - Medical Decision Making Patient care signed out to me by previous shift physician emergency room physician assistant, Destiny Montana. Briefly, patient is a 43-year-old male presents emergency department for shortness of breath. Allegedly patient has not missed any dialysis. Vital signs upon arrival shows blood pressure of 220/104. Chest x-ray shows fluid overload. Blood pressure was treated with antihypertensives. Case discussed with spoilage worker who will arrange for hemodialysis. Patient mated to medicine. Patient evaluated at the bedside at 6:00 AM found to be in stable condition. (Gilberto Nova) - Lab Data Lab Results 03/08/24 03/08/24 03/08/24 Range/Units 02:59 02:59 04:18 WBC 8.0 (3.8-10.6) k/uL RBC 3.62 L (4.30-5.90) m/uL Hgb 11.4 L (13.0-17.5) gm/dL Hct 35.6 L (39.0-53.0) % MCV 98.3 (80.0-100.0) fL MCH 31.6 (25.0-35.0) pg MCHC 32.1 (31.0-37.0) g/dL RDW 17.5 H (11.5-15.5) % Plt Count 134 L (150-450) k/uL MPV 11.3 Neutrophils % 84 % Lymphocytes % 8 % Monocytes % 6 % Eosinophils % 0 % Basophils % 0 % Neutrophils # 6.7 (1.3-7.7) k/uL Lymphocytes # 0.7 L (1.0-4.8) k/uL Monocytes # 0.5 (0-1.0) k/uL Eosinophils # 0.0 (0-0.7) k/uL Basophils # 0.0 (0-0.2) k/uL Anisocytosis Slight Macrocytosis Slight Sodium 135 L (137-145) mmol/L Potassium 5.2 H (3.5-5.1) mmol/L Chloride 97 L (98-107) mmol/L Carbon Dioxide 28 (22-30) mmol/L Anion Gap 10 mmol/L BUN 56 H (9-20) mg/dL Creatinine 11.54 H* (0.66-1.25) mg/dL Est GFR (CKD-EPI)AfAm 6 (>60 ml/min/1.73 sqM) Est GFR (CKD-EPI)NonAf 5 (>60 ml/min/1.73 sqM) Glucose 128 H (74-99) mg/dL Calcium 10.1 (8.4-10.2) mg/dL Total Bilirubin 0.7 (0.2-1.3) mg/dL AST 20 (17-59) U/L ALT 27 (4-49) U/L Alkaline Phosphatase 124 (38-126) U/L Troponin I 0.082 H* (0.000-0.034) ng/mL Total Protein 7.9 (6.3-8.2) g/dL Albumin 4.2 (3.5-5.0) g/dL Amylase 74 (30-110) U/L Lipase 49 (23-300) U/L Disposition <Jose oMntana - Last Filed: 03/08/24 04:58> Decision Time: 06:07 <Gilberto Nova - Last Filed: 03/08/24 06:07> Clinical Impression: Fluid overload Disposition: ADMITTED IP TO THIS HOSP Condition: Fair Referrals: Jj Galindo MD [Primary Care Provider] - 1-2 days
[2024-03-08 03:53] LABS: ALT 27 U/L (4-49); AST 20 U/L (17-59); African American GFR (CKD) 6 (>60 ml/min/1.73 sqM); Albumin 4.2 g/dL (3.5-5.0); Alkaline Phosphatase 124 U/L (38-126); Amylase 74 U/L (30-110); Anion Gap 10 mmol/L; Blood Urea Nitrogen 56 mg/dL (9-20); Calcium 10.1 mg/dL (8.4-10.2); Carbon Dioxide 28 mmol/L (22-30); Chloride 97 mmol/L (98-107); Glucose 128 mg/dL (74-99); Lipase 49 U/L (23-300); Non-African American GFR(CKD) 5 (>60 ml/min/1.73 sqM); Potassium 5.2 mmol/L (3.5-5.1); Sodium 135 mmol/L (137-145); Total Bilirubin 0.7 mg/dL (0.2-1.3); Total Protein 7.9 g/dL (6.3-8.2)
[2024-03-08] MEDS: METOCLOPRAMIDE 5 MG/ML 2 ML VIAL IVP STA (04:00)
[2024-03-08] MEDS: LABETALOL 5 MG/ML VIAL MDV IVP STA ×2 (04:11→05:50)
--- NOTE | 2024-03-08 04:46 | XR ---
EXAMINATION TYPE: XR chest 2V DATE OF EXAM: 03/08/2024 COMPARISON: Chest x-ray December 18, 2021 HISTORY: Chest pain. TECHNIQUE: Frontal and lateral views of the chest are obtained. FINDINGS: Cardiomegaly with moderate central vascular congestion is now present. No pleural effusi on or pneumothorax seen bilaterally. The osseous structures are intact. Right axillary surgical clips are redemonstrated. IMPRESSION: Findings are consistent with CHF exacerbation. Correlate clinically.
[2024-03-08] MEDS: MAG HYDROX/AL HYDROX/SIMETH 30 ML, HYOSCYAMINE ELIXIR 10 ML, LIDOCAINE VISCOUS 2% 10 ML PO STA (04:50)
[2024-03-08] MEDS ORDERED: NALOXONE 0.4 MG/ML 1 ML VIAL IV PRN (06:04)
[2024-03-08] MEDS: SODIUM CHLORIDE 0.9% 1,000 ML IV SCH (06:45)
[2024-03-08 06:49] LABS: Glucose,Whole Blood 141 mg/dL (70-110)
--- NOTE | 2024-03-08 07:36 | P.HPIM ---
History of Present Illness H&P Date: 03/08/24 HISTORY OF PRESENT ILLNESS: 43-year-old With active medical history of type 2 diabetes, end-stage renal disease on hemodialysis for the last 3 years, cardiomyopathy nonischemic, hypertension, hyperlipidemia, chronic neuropathy, retinopathy with vision loss in the left eye, chronic history of ulcer in the foot been seen at the wound clinic for a long time. Apparently has not been feeling well for the last few days with feeling sick to his stomach with nausea and vomiting severe GERD has not been able to keep his medication down for over 48 hours his blood sugar at home was over 400 with extremely high blood pressure he is taking clonidine to reduce his blood pressure did not work blood pressure over 200 developed to have severe dyspnea and worsening shortness of breath with more fluid retention did not miss his hemodialysis last time and this last week patient been doing very well with hemodialysis very compliant with all his appointment medication regularly. Ended up coming to the emergency department with above problem found to have blood pressure of 224/108 quite dyspneic with quite fluid retention chest x-ray showed fluid overload with congestive heart failure exacerbation his troponin was 0.082 creatinine up to 11.54 glucose was 128 and his lab with normal white blood cell hemoglobin 11.4. Patient is clearly fluid overload specially with no effect of his meds for the last 48 hours. Nephrology apparently were notified and they are going to do urgent hemodialysis patient was initiated on labetalol IV with some metoclopramide IV to reduce his nausea he will be admitted to the hospital with above problem. REVIEW OF SYSTEMS: CONSTITUTIONAL: Well-developed no acute respiratory distress. Feeling sick. EYES: No icterus sclerae, no conjunctivitis. EARS, NOSE, MOUTH, THROAT, and FACE: No sore throat, lymphadenopathy, carotid bruits or deformity. RESPIRATORY: Positive shortness of breath and wheezes no cough. CARDIOVASCULAR: Positive PND orthopnea palpitation with extremely high blood pressure. GASTROINTESTINAL: Intractable nausea vomiting no diarrhea quite epigastric pain discomfort with increased heartburn. GENITOURINARY: Does not make much urine no burning or discomfort no kidney stone . INTEGUMENT/BREAST: Negative for any muscular injury with mild osteoarthritis.. HEMATOLOGIC/LYMPHATIC: Chronic history of anemia. MUSCULOSKELTAL: Generalized muscle and joint pain. NEURLOGICAL: No LOC, Sz or syncope, blurred vision dizziness or abnormality.. BEHAVIORAL/PSYCH: Negative. ENDOCRINE: Negative. PHYSICAL EXAMINATION: General Appearance: Alert, cooperative, no distress, looks acutely sick. Neck HEENT: Supple, no lymphadenopathy, no thyroid enlargement, no carotid bruits. Dry mucosa. Lungs: Decreased breath sound bilaterally with fine rhonchi. Chest Wall: Decreased expansion with deep inspiration no tenderness and no deformity was found on exam, no costochondral pain or discomfort. Heart: Regular rate and rhythm, S1, S2, mild tachycardia positive S3 positive JVD. Back: Symmetric, no curvature, ROM normal, no CVA tenderness. Abdomen: Soft positive bowel sounds slight discomfort in the epigastric area and right upper quadrant no rebound rigidity or masses. No organomegaly. Extremities: Extremities normal, atraumatic, quite edema left foot has an open sore area still seen in the wound clinic. Pulses: 2+ and symmetric. Skin: Skin color, texture, tugor normal, no rashes or lesions. Neurologic: Alert oriented x3 cranial nerves II through XII intact, no motor deficit, no abnormal balance or gait. ASSESSMENT AND PLAN: _Severe dyspnea and shortness of breath is fluid overload from congestive heart failure exacerbation most likely diastolic dysfunction would not have cardiomyopathy and overload most likely from not been able to tolerate his medication close significant water retention at this point since his last d ialysis. Patient be hospitalized urgent dialysis will be done with his elevated troponin and CK troponin to be done echocardiogram is due as well will watch his symptoms carefully after bring his blood pressure down after dialysis. _Severe cardiomyopathy: Has been seeing cardiology regularly had previously diagnosed with? Of amyloid cardiomyopathy nonischemic type continue furosemide, losartan, amlodipine, Coreg and hydralazine. Still on Zaroxolyn as well. _Severe urgent hypertension: Patient had missed taking his medication last 2 days with intractable nausea vomiting will resume his furosemide with losartan, amlodipine, Coreg, clonidine and hydralazine. _Significant fluid overload again combination of urgent hypertension with worsening symptoms with his current sickness, hopefully urgent dialysis will help especially if he is able to tolerate his medication back again. _Type 2 diabetes: Has been on insulin between short acting and Lantus resume medication continue Accu-Chek with sliding scale coverage. _Recurrent angina: Has been on Coreg, losartan, isosorbide and amlodipine. Seeing cardiology regularly elevated troponin CK troponin x 3 will be done and echocardiogram was ordered. _Nonhealing ulcer on the L foot continue to see the wound clinic on more regular basis. Continue topical care for now. much better. _Severe diabetic retinopathy with vision loss still control the sugar and the blood pressure the best plan to reduce any complication or side effect. _Severe neuropathy of the lower extremity patient not on any medication currently. _Gastroparesis and severe GERD: Has been on Zofran and Protonix can benefit from adding Reglan. _GI prophylaxis: Continue pantoprazole. _DVT prophylaxis: Patient will continue early mobilization and knee-high ANNE hose. CODE STATUS: Full code. Admit patient to the inpatient service for more than 2 night stay. Past Medical History Past Medical History: Coronary Artery Disease (CAD), Heart Failure, Eye Disorder, GERD/Reflux, Hyperlipidemia, Hypertension, Myocardial Infarction ([place]), Renal Disease, Respiratory Disorder Additional Past Medical History / Comment(s): Pt recently admitted to [facility] on 05/09/20 with acute on chronic CHF/amyloidosis with generalized anasarca/acute on chronic kidney injury/acute anemia/advanced CAD/valvular disease/severe pulmonary htn/abnormal liver test/hyperlipidemia. Other hx: IDDM type II, pt states informed he had kidney disease in Feb, 2020 then ESRD diagnosed 05/09/20 with hemodialysis M/W/F,neuropathy bilateral feet, L foot ulcer with debridements, L eye blindness d/t diabetic retinopathy, ischemic cardiomyopathy, anasarca/lower leg edema. Last Myocardial Infarction Date:: 03/30/2018 History of Any Multi-Drug Resistant Organisms: None Reported Past Surgical History: Heart Catheterization With Stent Additional Past Surgical History / Comment(s): 05/17/20 R subclavian hemodialysis catheter, debridements L foot wound, R eye surgery-pt believes to remove cataract, SEAN fistula Additional Past Anesthesia/Blood Transfusion Reaction / Comment(s): During 3rd debridement L foot ulcer, pt had cardiac arrest. Date of Last Stent Placement:: 03/31/2018 Past Psychological History: No Psychological Hx Reported Smoking Status: Never smoker Past Alcohol Use History: None Reported Past Drug Use History: None Reported - Past Family History Mother Family Medical History: Diabetes Mellitus, Hyperlipidemia, Hypertension Father Family Medical History: Diabetes Mellitus, Hypertension Medications and Allergies Home Medications Medication Instructions Recorded Confirmed Type Insulin Glargine,Hum.rec.anlog 10 unit SQ HS 05/09/20 08/19/22 History [Lantus Solostar Pen] Nitroglycerin Sl Tabs [Nitrostat] 0.4 mg SL Q5M PRN 05/09/20 08/19/22 History metOLazone [Zaroxolyn] 5 mg PO DAILY #30 tab 05/19/20 08/19/22 Rx Furosemide [Lasix] 80 mg PO BID 11/03/20 08/19/22 History Losartan Potassium [Cozaar] 100 mg PO DAILY 11/03/20 08/19/22 History carvediloL [Coreg] 50 mg PO BID 11/03/20 08/19/22 History cloNIDine HCL [Catapres] 0.1 mg PO BID PRN 11/03/20 08/19/22 History Calcium Carbonate [Tums] 500 mg PO TID 08/07/22 08/19/22 History Dicyclomine [Bentyl] 10 mg PO TID PRN 08/07/22 08/19/22 History Ondansetron [Zofran] 4 mg PO Q8H PRN 08/07/22 08/19/22 History amLODIPine [Norvasc] 5 mg PO HS 08/07/22 08/19/22 History hydrALAZINE HCL [Apresoline] 50 mg PO TID 08/07/22 08/19/22 History Pantoprazole [Protonix] 40 mg PO BID 15 Days #30 tab 08/08/22 08/19/22 Rx Allergies Allergy/AdvReac Type Severity Reaction Status Date / Time nickel Allergy Rash/Hives Verified 08/20/22 06:28 Physical Exam Vitals: Vital Signs Temp Pulse Resp BP Pulse Ox 03/08/24 04:50 80 16 149/81 97 03/08/24 04:30 82 18 196/103 03/08/24 04:00 84 18 218/116 97 03/08/24 03:30 91 20 224/108 97 03/08/24 03:00 80 16 220/104 98 03/08/24 02:34 81 16 223/113 99 03/08/24 00:50 98.2 F 86 18 92/51 99 Intake and Output 03/07/24 03/07/24 03/08/24 14:59 22:59 06:59 Other: Weight 79.379 kg Results CBC & Chem 7: 03/08/24 02:59 03/08/24 02:59 Labs: Abnormal Lab Results - Last 24 Hours (Table) 03/08/24 03/08/24 03/08/24 Range/Units 02:59 02:59 04:18 RBC 3.62 L (4.30-5.90) m/uL Hgb 11.4 L (13.0-17.5) gm/dL Hct 35.6 L (39.0-53.0) % RDW 17.5 H (11.5-15.5) % Plt Count 134 L (150-450) k/uL Lymphocytes # 0.7 L (1.0-4.8) k/uL Sodium 135 L (137-145) mmol/L Potassium 5.2 H (3.5-5.1) mmol/L Chloride 97 L (98-107) mmol/L BUN 56 H (9-20) mg/dL Creatinine 11.54 H* (0.66-1.25) mg/dL Glucose 128 H (74-99) mg/dL Troponin I 0.082 H* (0.000-0.034) ng/mL
[2024-03-08] MEDS: ACETAMINOPHEN TAB 325 MG TAB PO STA (08:35)
--- NOTE | 2024-03-08 08:36 | P.NPCON ---
History of Present Illness - Reason for Consult end stage renal disease - History of Present Illness Reason for consultation: End-stage renal disease History of present illness: Patient is a 43-year-old male seen in renal consultation for end-stage renal disease. Patient was seen and examined in the emergency room. He is maintained on hemodialysis on Friday schedule via right upper extremity AV fistula. Last hemodialysis treatment was on Friday. Patient states that the morning he developed nausea and vomiting which persisted throughout the day. He also developed chest discomfort and dyspnea and came to the hospital for further evaluation. Patient has longstanding history of hypertension and diabetes. He also has history of coronary artery disease with prior cardiac stents. He denies fever or chills. Patient has a chronic lower extremity wound for which she follows at wound care every 2 weeks. He received 1 L of fluid bolus in the ER. He did vomit last night but not this morning so far. He is currently on room air. Vital signs are stable. General: No acute distress. HEENT: Head exam is unremarkable. LUNGS: No audible rhonchi or wheezes. HEART: Rate and Rhythm are regular. ABDOMEN: Nontender. EXTREMITITES: 1+ edema. No drainage. Past Medical History Past Medical History: Coronary Artery Disease (CAD), Heart Failure, Eye Disorder, GERD/Reflux, Hyperlipidemia, Hypertension, Myocardial Infarction ([place]), Renal Disease, Respiratory Disorder Additional Past Medical History / Comment(s): Pt recently admitted to [facility] on 05/09/20 with acute on chronic CHF/amyloidosis with generalized anasarca/acute on chronic kidney injury/acute anemia/advanced CAD/valvular disease/severe pulmonary htn/abnormal liver test/hyperlipidemia. Other hx: IDDM type II, pt states informed he had kidney disease in Feb, 2020 then ESRD diagnosed 05/09/20 with hemodialysis M/W/F,neuropathy bilateral feet, L foot ulcer with debridements, L eye blindness d/t diabetic retinopathy, ischemic cardiomyopathy, anasarca/lower leg edema. Last Myocardial Infarction Date:: 03/30/2018 History of Any Multi-Drug Resistant Organisms: None Reported Past Surgical History: Heart Catheterization With Stent Additional Past Surgical History / Comment(s): 05/17/20 R subclavian hemodialysis catheter, debridements L foot wound, R eye surgery-pt believes to remove cataract, SEAN fistula Additional Past Anesthesia/Blood Transfusion Reaction / Comment(s): During 3rd debridement L foot ulcer, pt had cardiac arrest. Date of Last Stent Placement:: 03/31/2018 Past Psychological History: No Psychological Hx Reported Smoking Status: Never smoker Past Alcohol Use History: None Reported Past Drug Use History: None Reported - Past Family History Mother Family Medical History: Diabetes Mellitus, Hyperlipidemia, Hypertension Father Family Medical History: Diabetes Mellitus, Hypertension Medications and Allergies Home Medications Medication Instructions Recorded Confirmed Type Insulin Glargine,Hum.rec.anlog 10 unit SQ HS 05/09/20 08/19/22 History [Lantus Solostar Pen] Nitroglycerin Sl Tabs [Nitrostat] 0.4 mg SL Q5M PRN 05/09/20 08/19/22 History metOLazone [Zaroxolyn] 5 mg PO DAILY #30 tab 05/19/20 08/19/22 Rx Furosemide [Lasix] 80 mg PO BID 11/03/20 08/19/22 History Losartan Potassium [Cozaar] 100 mg PO DAILY 11/03/20 08/19/22 History carvediloL [Coreg] 50 mg PO BID 11/03/20 08/19/22 History cloNIDine HCL [Catapres] 0.1 mg PO BID PRN 11/03/20 08/19/22 History Calcium Carbonate [Tums] 500 mg PO TID 08/07/22 08/19/22 History Dicyclomine [Bentyl] 10 mg PO TID PRN 08/07/22 08/19/22 History Ondansetron [Zofran] 4 mg PO Q8H PRN 08/07/22 08/19/22 History amLODIPine [Norvasc] 5 mg PO HS 08/07/22 08/19/22 History hydrALAZINE HCL [Apresoline] 50 mg PO TID 08/07/22 08/19/22 History Pantoprazole [Protonix] 40 mg PO BID 15 Days #30 tab 08/08/22 08/19/22 Rx Allergies Allergy/AdvReac Type Severity Reaction Status Date / Time nickel Allergy Rash/Hives Verified 08/20/22 06:28 Physical Exam Vitals: Vital Signs Temp Pulse Resp BP Pulse Ox 03/08/24 08:14 75 16 187/98 100 03/08/24 07:15 77 16 210/115 94 L 03/08/24 06:30 79 18 178/96 100 03/08/24 05:30 79 18 174/96 93 L 03/08/24 04:50 80 16 149/81 97 03/08/24 04:30 82 18 196/103 03/08/24 04:00 84 18 218/116 97 03/08/24 03:30 91 20 224/108 97 03/08/24 03:00 80 16 220/104 98 03/08/24 02:34 81 16 223/113 99 03/08/24 00:50 98.2 F 86 18 92/51 99 Intake and Output 03/07/24 03/08/24 03/08/24 22:59 06:59 14:59 Other: Weight 79.379 kg Results - Lab Results Most recent lab results Calcium 10.1 mg/dL (8.4-10.2) 03/08/24 02:59 03/08/24 02:59 03/08/24 02:59 Assessment and Plan Plan: Assessment: 1. End-stage renal disease maintained on hemodialysis on Friday schedule via right upper extremity AV fistula. 2. Nausea and vomiting. Possibly from viral gastroenteritis versus gastroparesis. 3. Fluid overload. 4. Hypertension with chronic kidney disease. Worsened from nausea and vomiting. 5. Diabetes mellitus. 6. Left foot ulcer for which she follows with wound care every 2 weeks. 7. Coronary disease with prior cardiac stenting. 8. Chronic kidney disease mineral bone disease. 9. Chronic systolic CHF with ejection fraction of 45% with moderate to severe tricuspid regurgitation from echocardiogram done in 2021. Plan: Hemodialysis today with goal 2-1/2 L ultrafiltration. Resume home antihypertensives. Follow-up echocardiogram. Thank you for the consultation. I will continue to follow the patient with you during his hospital stay.
[2024-03-08] MEDS: INSULIN ASPART (NovoLOG) 100 UNIT/ML VIAL SQ SCH ×2 (08:37→21:57)
[2024-03-08] MEDS: hydrALAZINE HCL 25 MG TAB PO SCH (08:58)
[2024-03-08] MEDS: carvediloL 12.5 MG TAB PO SCH (08:58)
[2024-03-08] MEDS: cloNIDine 0.1 MG/24HR PATCH TRANSDERM SCH (11:45)
--- NOTE | 2024-03-08 12:13 | P.CRDCN ---
History of Present Illness Consult date: 03/08/24 Reason for Consult (text): CMP, elevated troponin History of present illness: History of present illness: This is a 43-year-old male patient of Dr. Martines with past medical history of end-stage renal disease on hemodialysis, hypertension, dilated cardiomyopathy with EF 45%, diabetes mellitus type 2, chronic systolic heart failure. We have been asked to evaluate the patient for CMP and elevated troponins. Patient states he Presented to the emergency center due to nausea and vomiting has not been able to take his medications for the past day. His blood sugar was running greater than 400 at home and blood pressure was extremely high. He states he has not missed any dialysis treatments. He denies any weight gain. He states he still makes a little bit of urine. He states he did have a little bit of chest pain yesterday and shortness of breath. He denies any chest pain at this time. EKG sinus tachycardia Chest x-ray: CHF WBC 8, hemoglobin 11.4. Sodium 135, potassium 5.2, chloride 97, BUN 56 creatinine 11.5. Glucose 128. Troponin 0.082. proBNP 85,300. Home cardiac medications: Coreg 50 mg twice daily, clonidine 0.1 mg twice daily as needed, Lasix 80 mg twice daily as needed, hydralazine 50 mg 3 times daily, losartan 100 mg daily, Procardia 30 mg in the morning and 90 mg at bedtime, Nitrostat as needed. Echocardiogram performed on 08/07/2022 revealed EF of 45% with global hypokinesis. Severely increased left ventricular wall thickness 1.7 cm. RVSP 73. Mild mitral regurgitation. Moderate to severe tricuspid regurgitation. Mild pulmonic regurgitation. Lexiscan Cardiolite stress test performed in the office on 01/14/2023 revealed negative stress test by EKG criteria. No evidence of ischemia, preserved LV f unction. Review Of Systems: At the time of my exam: CONSTITUTIONAL: Denies fever or chills. HEENT: Denies blurred vision, vision changes, or eye pain. Denies hemoptysis CARDIOVASCULAR: Denies chest pain. Denies orthopnea. Denies PND. Denies palpitations RESPIRATORY: Denies shortness of breath. GASTROINTESTINAL: Denies abdominal pain. Denies nausea or vomiting. HEMATOLOGIC: Denies bleeding disorders. GENITOURINARY: Denies any blood in urine. SKIN: Denies pruitis. Denies rash. Physical examination: Gen: This is a 43-year-old black male in no acute distress VS: reviewed, blood pressure 191/101, heart rate 70, pulse ox 95% on room air. HEENT: Head is atraumatic, normocephalic. Pupils equal, round. Sclerae is anicteric. NECK: Supple. No JVD. LUNGS: Clear to auscultation. No wheezes or rhonchi. No intercostal retractions. HEART: Regular rate and rhythm. Systolic murmur at the apex. ABDOMEN: Soft No tenderness. EXTREMITIES: No pedal edema. No calf tenderness. NEUROLOGICAL: Patient is awake, alert and oriented x3. Assessment: Elevated troponin of unclear etiology Hypertensive crisis/emergent Nonischemic cardiomyopathy secondary to hypertension Hypertension with hypertensive cardiovascular disease Plan: Resume patient's home cardiac medications And clonidine patch 0.1 mg every 7 days Obtain repeat troponins x 2 Obtain 2-D echocardiogram and Doppler study to assess cardiac structure and function Further recommendations to follow based upon clinical course Thank you kindly for this consultation. Nurse practitioner note has been reviewed, I agree with documented findings and plan of care. Patient was seen and examined. Past Medical History Past Medical History: Coronary Artery Disease (CAD), Heart Failure, Eye Disorder, GERD/Reflux, Hyperlipidemia, Hypertension, Myocardial Infarction ([place]), Renal Disease, Respiratory Disorder Additional Past Medical History / Comment(s): Pt recently admitted to [facility] on 05/09/20 with acute on chronic CHF/amyloidosis with generalized anasarca/acute on chronic kidney injury/acute anemia/advanced CAD/valvular disease/severe pulmonary htn/abnormal liver test/hyperlipidemia. Other hx: IDDM type II, pt states informed he had kidney disease in Feb, 2020 then ESRD diagnosed 05/09/20 with hemodialysis M/W/F,neuropathy bilateral feet, L foot ulcer with debridemen ts, L eye blindness d/t diabetic retinopathy, ischemic cardiomyopathy, anasarca/lower leg edema. Last Myocardial Infarction Date:: 03/30/2018 History of Any Multi-Drug Resistant Organisms: None Reported Past Surgical History: Heart Catheterization With Stent Additional Past Surgical History / Comment(s): 05/17/20 R subclavian hemodialysis catheter, debridements L foot wound, R eye surgery-pt believes to remove cataract, SEAN fistula Additional Past Anesthesia/Blood Transfusion Reaction / Comment(s): During 3rd debridement L foot ulcer, pt had cardiac arrest. Date of Last Stent Placement:: 03/31/2018 Past Psychological History: No Psychological Hx Reported Smoking Status: Never smoker Past Alcohol Use History: None Reported Past Drug Use History: None Reported - Past Family History Mother Family Medical History: Diabetes Mellitus, Hyperlipidemia, Hypertension Father Family Medical History: Diabetes Mellitus, Hypertension Medications and Allergies Home Medications Medication Instructions Recorded Confirmed Type Insulin Glargine,Hum.rec.anlog 10 unit SQ HS 05/09/20 03/08/24 History [Lantus Solostar Pen] Nitroglycerin Sl Tabs [Nitrostat] 0.4 mg SL Q5M PRN 05/09/20 03/08/24 History Furosemide [Lasix] 80 mg PO BID PRN 11/03/20 03/08/24 History Losartan Potassium [Cozaar] 100 mg PO DAILY 11/03/20 03/08/24 History carvediloL [Coreg] 50 mg PO BID 11/03/20 03/08/24 History cloNIDine HCL [Catapres] 0.1 mg PO BID PRN 11/03/20 03/08/24 History Dicyclomine [Bentyl] 10 mg PO TID-W/MEALS 08/07/22 03/08/24 History hydrALAZINE HCL [Apresoline] 50 mg PO TID-W/MEALS 08/07/22 03/08/24 History Dicyclomine [Bentyl] 10 mg PO DAILY PRN 03/08/24 03/08/24 History NIFEdipine XL [Procardia Xl] 30 mg PO DAILY 03/08/24 03/08/24 History NIFEdipine XL [Procardia Xl] 90 mg PO HS 03/08/24 03/08/24 History Allergies Allergy/AdvReac Type Severity Reaction Status Date / Time nickel Allergy Rash/Hives Verified 08/20/22 06:28 Physical Exam Vitals: Vital Signs Temp Pulse Resp BP Pulse Ox 03/08/24 08:14 75 16 187/98 100 03/08/24 07:15 77 16 210/115 94 L 03/08/24 06:30 79 18 178/96 100 03/08/24 05:30 79 18 174/96 93 L 03/08/24 04:50 80 16 149/81 97 03/08/24 04:30 82 18 196/103 03/08/24 04:00 84 18 218/116 97 03/08/24 03:30 91 20 224/108 97 03/08/24 03:00 80 16 220/104 98 03/08/24 02:34 81 16 223/113 99 03/08/24 00:50 98.2 F 86 18 92/51 99 Intake and Output 03/07/24 03/08/24 03/08/24 22:59 06:59 14:59 Other: Weight 79.379 kg Results 03/08/24 02:59 03/08/24 02:59 Cardiac Enzymes 03/08/24 03/08/24 Range/Units 02:59 04:18 AST 20 (17-59) U/L Troponin I 0.082 H* (0.000-0.034) ng/mL CBC 03/08/24 Range/Units 02:59 WBC 8.0 (3.8-10.6) k/uL RBC 3.62 L (4.30-5.90) m/uL Hgb 11.4 L (13.0-17.5) gm/dL Hct 35.6 L (39.0-53.0) % Plt Count 134 L (150-450) k/uL Comprehensive Metabolic Panel 03/08/24 Range/Units 02:59 Sodium 135 L (137-145) mmol/L Potassium 5.2 H (3.5-5.1) mmol/L Chloride 97 L (98-107) mmol/L Carbon Dioxide 28 (22-30) mmol/L BUN 56 H (9-20) mg/dL Creatinine 11.54 H* (0.66-1.25) mg/dL Glucose 128 H (74-99) mg/dL Calcium 10.1 (8.4-10.2) mg/dL AST 20 (17-59) U/L ALT 27 (4-49) U/L Alkaline Phosphatase 124 (38-126) U/L Total Protein 7.9 (6.3-8.2) g/dL Albumin 4.2 (3.5-5.0) g/dL Current Medications Generic Name Dose Route Start Last Admin Trade Name Freq PRN Reason Stop Dose Admin Carvedilol 25 mg 03/08/24 08:45 03/08/24 08:58 Carvedilol 12.5 Mg Tab PO 25 mg BID-W/MEALS KATHERINE Administration Hydralazine HCl 25 mg 03/08/24 09:00 03/08/24 08:58 Hydralazine Hcl 25 Mg Tab PO 25 mg TID KATHERINE Administration Sodium Chloride 1,000 mls @ 20 mls/hr 03/08/24 06:15 03/08/24 06:45 Saline 0.9% IV 20 mls/hr .Q24H KATHERINE Administration Insulin Aspart 0 unit 03/08/24 07:30 03/08/24 08:37 Insulin Aspart (Novolog) 100 Unit/Ml Vial SQ Not Given ACHS KATHERINE Naloxone HCl 0.2 mg 03/08/24 06:04 Naloxone 0.4 Mg/Ml 1 Ml Vial IV Q2M PRN Opioid Reversal Nifedipine 60 mg 03/08/24 09:00 Nifedipine Xl 60 Mg Tab.Er.24 PO Q12HR KATHERINE Intake and Output 03/07/24 03/08/24 03/08/24 22:59 06:59 14:59 Other: Weight 79.379 kg 03/08/24 02:59 03/08/24 02:59
[2024-03-08 13:05] LABS: Glucose,Whole Blood 93 mg/dL (70-110)
[2024-03-08] MEDS: cloNIDine 0.2 MG/24HR PATCH TRANSDERM SCH (17:34)
[2024-03-08 18:10] LABS: Glucose,Whole Blood 96 mg/dL (70-110)
[2024-03-08 21:19] LABS: Glucose,Whole Blood 118 mg/dL (70-110)
[2024-03-08] MEDS: hydrALAZINE HCL 50 MG TAB PO SCH (21:56)
[2024-03-09 05:45] LABS: Glucose,Whole Blood 112 mg/dL (70-110)
--- NOTE | 2024-03-09 08:09 | P.PN ---
Subjective Progress Note Date: 03/09/24 HISTORY OF PRESENT ILLNESS: 43-year-old With active medical history of type 2 diabetes, end-stage renal disease on hemodialysis for the last 3 years, cardiomyopathy nonischemic, hypertension, hyperlipidemia, chronic neuropathy, retinopathy with vision loss in the left eye, chronic history of ulcer in the foot been seen at the wound clinic for a long time. Apparently has not been feeling well for the last few days with feeling sick to his stomach with nausea and vomiting severe GERD has not been able to keep his medication down for over 48 hours his blood sugar at home was over 400 with extremely high blood pressure he is taking clonidine to reduce his blood pres sure did not work blood pressure over 200 developed to have severe dyspnea and worsening shortness of breath with more fluid retention did not miss his hemodialysis last time and this last week patient been doing very well with hemodialysis very compliant with all his appointment medication regularly. Ended up coming to the emergency department with above problem found to have blood pressure of 224/108 quite dyspneic with quite fluid retention chest x-ray showed fluid overload with congestive heart failure exacerbation his troponin was 0.082 creatinine up to 11.54 glucose was 128 and his lab with normal white blood cell hemoglobin 11.4. Patient is clearly fluid overload specially with no effect of his meds for the last 48 hours. Nephrology apparently were notified and they are going to do urgent hemodialysis patient was initiated on labetalol IV with some metoclopramide IV to reduce his nausea he will be admitted to the hospital with above problem. 03/09/2024: He is feeling much better after hemodialysis he is not shortness of breath, his blood pressure is quite bit high his clonidine was switched to 0.2 mg patch: Hydralazine was increased to 50 mg 3 times a day and 50 mg every 6 hours for systolic above 160 also starting patient on his Coreg along with losartan his blood pressure is much better this morning. His troponin is mildly elevated yesterday patient has known to have nonischemic cardiomyopathy and is seeing cardiology again today his echocardiogram was done and resolved posted in the system yet decision probably with cardiology nephrology with the patient should go for any intervention if not patient can be discharged sometime between today and tomorrow if stable from nephrology standpoint he might do dialysis 1 more time today will be nice to watch his blood pressure at least for the next 12 hours to make sure his numbers negative be quite high like he had 1 he came in on his admission. REVIEW OF SYSTEMS: CONSTITUTIONAL: Well-developed no acute respiratory distress. Feeling sick. EYES: No icterus sclerae, no conjunctivitis. EARS, NOSE, MOUTH, THROAT, and FACE: No sore throat, lymphadenopathy, carotid bruits or deformity. RESPIRATORY: Positive shortness of breath and wheezes no cough. CARDIOVASCULAR: Positive PND orthopnea palpitation with extremely high blood pressure. GASTROINTESTINAL: Intractable nausea vomiting no diarrhea quite epigastric pain discomfort with increased heartburn. GENITOURINARY: Does not make much urine no burning or discomfort no kidney stone. INTEGUMENT/BREAST: Negative for any muscular injury with mild osteoarthritis.. HEMATOLOGIC/LYMPHATIC: Chronic history of anemia. MUSCULOSKELTAL: Generalized muscle and joint pain. NEURLOGICAL: No LOC, Sz or syncope, blurred vision dizziness or abnormality.. BEHAVIORAL/PSYCH: Negative. ENDOCRINE: Negative. PHYSICAL EXAMINATION: General Appearance: Alert, cooperative, no distress, looks acutely sick. Neck HEENT: Supple, no lymphadenopathy, no thyroid enlargement, no carotid bruits. Dry mucosa. Lungs: Decreased breath sound bilaterally with fine rhonchi. Chest Wall: Decreased expansion with deep inspiration no tenderness and no deformity was found on exam, no costochondral pain or discomfort. Heart: Regular rate and rhythm, S1, S2, mild tachycardia positive S3 positive JVD. Back: Symmetric, no curvature, ROM normal, no CVA tenderness. Abdomen: Soft positive bowel sounds slight discomfort in the epigastric area and right upper quadrant no rebound rigidity or masses. No organomegaly. Extremities: Extremities normal, atraumatic, quite edema left foot has an open sore area still seen in the wound clinic. Pulses: 2+ and symmetric. Skin: Skin color, texture, tugor normal, no rashes or lesions. Neurologic: Alert oriented x3 cranial nerves II through XII intact, no motor deficit, no abnormal balance or gait. ASSESSMENT AND PLAN: _Severe dyspnea and shortness of breath is fluid overload from congestive heart failure exacerbation most likely diastolic dysfunction with much better with diuretics and dialysis still pending echo at this point. _Severe cardiomyopathy: Has been seeing cardiology regularly had previously diagnosed with? Of amyloid cardiomyopathy nonischemic type continue furosemide, losartan, amlodipine, Coreg and hydralazine. Still on Zaroxolyn as well. His echocardiogram will be reported today based on the results hopefully between cardiology and nephrology decide on further management if needed. _Severe urgent hypertension: Clonidine was adjusted up to 0.2 mg patch still on hydralazine 50 mg 3 times a day, losartan 100 mg daily and Coreg. His blood pressure is under better control today. _Significant fluid overload again combination of urgent hypertension with worsening symptoms with his current sickness, is much better after dialysis yesterday not clear whether he is irma do another dialysis session today or not. _Type 2 diabetes: Has been on insulin between short acting and Lantus resume medication continue Accu-Chek with sliding scale coverage. _Recurrent angina: Has been on Coreg, losartan, isosorbide and amlodipine. See ing cardiology regularly elevated troponin CK troponin x 3 will be done and echocardiogram was ordered. _Nonhealing ulcer on the L foot continue to see the wound clinic on more regular basis. Continue topical care for now. much better. _Severe diabetic retinopathy with vision loss still control the sugar and the blood pressure the best plan to reduce any complication or side effect. _Severe neuropathy of the lower extremity patient not on any medication currently. _Gastroparesis and severe GERD: Has been on Zofran and Protonix can benefit from adding Reglan. _GI prophylaxis: Continue pantoprazole. _DVT prophylaxis: Patient will continue early mobilization and knee-high ANNE hose. Prognosis: Good. Discussion: Patient blood pressure is much better. He see cardiology and nephrology today decision whether he needs to do more dialysis or not clear that he needs any further testing cardiovascular saxena specially with the results of his echo and it is important along with result of his troponin to be mildly elevated. Objective - Vital Signs Vital signs: Vital Signs Temp 98.6 F 03/08/24 22:23 Pulse 71 03/09/24 02:00 Resp 16 03/09/24 02:00 BP 172/84 03/09/24 00:00 Pulse Ox 99 03/09/24 00:00 FiO2 Intake & Output 03/08/24 03/08/24 03/09/24 06:59 18:59 06:59 Intake Total 400 Output Total 2900 Balance -2500 Weight 79.379 kg 79.379 kg Intake: Oral 0 Hemodialysis 400 Output: Hemodialysis 2900 Other: Voiding Method Toilet Urinal # Voids 0 # Bowel Movements 0 - Labs CBC & Chem 7: 03/08/24 02:59 03/08/24 02:59 Labs: Abnormal Lab Results - Last 24 Hours (Table) 03/08/24 03/08/24 03/08/24 Range/Units 06:47 09:32 13:04 POC Glucose (mg/dL) 141 H (70-110) mg/dL Troponin I 0.085 H* 0.224 H* (0.000-0.034) ng/mL 03/08/24 03/09/24 Range/Units 21:17 05:43 POC Glucose (mg/dL) 118 H 112 H (70-110) mg/dL Troponin I (0.000-0.034) ng/mL
[2024-03-09] MEDS: DICYCLOMINE 10 MG CAP PO SCH (09:26)
[2024-03-09] MEDS: LOSARTAN 50 MG TAB PO SCH (09:26)
[2024-03-09 10:48] LABS: Anisocytosis Slight; Basophils # (A) 0.1 k/uL (0-0.2); Basophils % (A) 1 %; Eosinophils # (A) 0.1 k/uL (0-0.7); Eosinophils % (A) 2 %; HCT 34.6 % (39.0-53.0); HGB 11.2 gm/dL (13.0-17.5); Lymphocytes # (A) 1.3 k/uL (1.0-4.8); Lymphocytes % (A) 23 %; MCH 32.6 pg (25.0-35.0); MCHC 32.4 g/dL (31.0-37.0); MCV 100.9 fL (80.0-100.0); Macrocytosis Slight; Mean Platelet Volume 10.7; Monocytes # (A) 0.5 k/uL (0-1.0); Monocytes % (A) 9 %; Neutrophils # (A) 3.7 k/uL (1.3-7.7); Neutrophils % (A) 65 %; Platelet Count 119 k/uL (150-450); RBC 3.43 m/uL (4.30-5.90); RDW 17.5 % (11.5-15.5); WBC 5.8 k/uL (3.8-10.6)
[2024-03-09 11:22] LABS: ALT 44 U/L (4-49); AST 34 U/L (17-59); African American GFR (CKD) 7 (>60 ml/min/1.73 sqM); Alkaline Phosphatase 93 U/L (38-126); Anion Gap 7 mmol/L; Blood Urea Nitrogen 39 mg/dL (9-20); Calcium 8.9 mg/dL (8.4-10.2); Carbon Dioxide 31 mmol/L (22-30); Chloride 97 mmol/L (98-107); Glucose 211 mg/dL (74-99); Non-African American GFR(CKD) 6 (>60 ml/min/1.73 sqM); Potassium 4.5 mmol/L (3.5-5.1); Sodium 135 mmol/L (137-145); Total Bilirubin 0.7 mg/dL (0.2-1.3); Total Protein 7.5 g/dL (6.3-8.2)
[2024-03-09 11:37] LABS: Glucose,Whole Blood 152 mg/dL (70-110)
[2024-03-09 11:47] LABS: NT-Pro-B-Type Natriuretic Pept 113000 pg/mL
--- NOTE | 2024-03-09 12:01 | P.PN ---
Subjective Progress Note Date: 03/09/24 Reason for Consult (text): CMP, elevated troponin History of present illness: This is a 43-year-old male patient of Dr. Martines with past medical history of end-stage renal disease on hemodialysis, hypertension, dilated cardiomyopathy with EF 45%, diabetes mellitus type 2, chronic systolic heart failure. We have been asked to evaluate the patient for CMP and elevated troponins. Patient states he Presented to the emergency center due to nausea and vomiting has not been able to take his medications for the past day. His blood sugar was running greater than 400 at home and blood pressure was extremely high. He states he has not missed any dialysis treatments. He denies any weight gain. He states he still makes a little bit of urine. He states he did have a little bit of chest pain yesterday and shortness of breath. He denies any chest pain at this time. EKG sinus tachycardia Chest x-ray: CHF WBC 8, hemoglobin 11.4. Sodium 135, potassium 5.2, chloride 97, BUN 56 creatinine 11.5. Glucose 128. Troponin 0.082. proBNP 85,300. Home cardiac medications: Coreg 50 mg twice daily, clonidine 0.1 mg twice daily as needed, Lasix 80 mg twice daily as needed, hydralazine 50 mg 3 times daily, losartan 100 mg daily, Procardia 30 mg in the morning and 90 mg at bedtime, Nitrostat as needed. Echocardiogram performed on 08/07/2022 revealed EF of 45% with global hypokinesis. Severely increased left ventricular wall thickness 1.7 cm. RVSP 73. Mild mitral regurgitation. Moderate to severe tricuspid regurgitation. Mild pulmonic regurgitation. Lexiscan Cardiolite stress test performed in the office on 01/14/2023 revealed negative stress test by EKG criteria. No evidence of ischemia, preserved LV function. 03/09 Patient is seen today in follow-up on the cardiac stepdown unit. Yesterday blood pressure readings were quite high and medication adjustments were made for that. Blood pressure today is 176/86, heart rate 66, pulse ox 99% on room air. Patient continues to deny chest pain. No shortness of breath. He has not no further episodes of nausea and vomiting. He is able to keep his medications down. Repeat blood work reveals hemoglobin 11.2. Sodium 135, potassium 4.5, BUN 39 creatinine 9.2. All troponins were 0.082, 0.085, 0.224, 0.098. proBNP 113,000. Echocardiogram is pending. Patient underwent hemodialysis yesterday and followed by nephrology. Coreg and clonidine patch were increased by nephrology. Physical examination: Gen: This is a 43-year-old black male in no acute distress VS: reviewed HEENT: Head is atraumatic, normocephalic. Pupils equal, round. Sclerae is anicteric. NECK: Supple. No JVD. LUNGS: Clear to auscultation. No wheezes or rhonchi. No intercostal retractions. HEART: Regular rate and rhythm. Systolic murmur at the apex. ABDOMEN: Soft No tenderness. EXTREMITIES: No pedal edema. No calf tenderness. NEUROLOGICAL: Patient is awake, alert and oriented x3. Assessment: Elevated troponin most likely due to renal failure Hypertensive crisis/emergent Nonischemic cardiomyopathy secondary to hypertension Hypertension with hypertensive cardiovascular disease Plan: Continue current cardiac medications: Coreg was increased to 25 mg twice daily, clonidine patch 0.2 mg per 24-hour, hydralazine 50 mg 3 times daily, losartan 100 mg daily. Obtain 2-D echocardiogram and Doppler study to assess cardiac structure and function Regarding elevated troponins, these were thought to be related to renal failure and no aggressive cardiac workup at this time. Patient may follow-up in the off ice with Dr. Martines for scheduling of an outpatient stress test. Further recommendations to follow based upon clinical course Nurse practitioner note has been reviewed, I agree with documented findings and plan of care. Patient was seen and examined. Objective - Vital Signs Vital signs: Vital Signs Temp 98.6 F 03/08/24 22:23 Pulse 69 03/09/24 04:00 Resp 16 03/09/24 04:00 BP 141/65 03/09/24 04:00 Pulse Ox 98 03/09/24 04:00 FiO2 Intake & Output 03/08/24 03/09/24 03/09/24 18:59 06:59 18:59 Intake Total 400 Output Total 2900 Balance -2500 Weight 78.789 kg Intake: Oral 0 Hemodialysis 400 Output: Hemodialysis 2900 Other: Voiding Method Toilet Urinal # Voids 0 # Bowel Movements 0 - Labs CBC & Chem 7: 03/09/24 10:30 05/21/24 10:30 Labs: Abnormal Lab Results - Last 24 Hours (Table) 03/08/24 03/08/24 03/08/24 Range/Units 09:32 13:04 21:17 POC Glucose (mg/dL) 118 H (70-110) mg/dL Troponin I 0.085 H* 0.224 H* (0.000-0.034) ng/mL 03/09/24 Range/Units 05:43 POC Glucose (mg/dL) 112 H (70-110) mg/dL Troponin I (0.000-0.034) ng/mL
[2024-03-09] MEDS: hydrALAZINE HCL 50 MG TAB PO PRN (12:12)
--- NOTE | 2024-03-09 12:18 | P.PN ---
Subjective Patient is seen in follow-up for end-stage renal disease. He is maintained on hemodialysis on Friday schedule. Tolerated 2-1/2 L ultrafiltration yesterday. No chest pain or shortness of breath. No vomiting or diarrhea today. Vital signs stable. No acute distress. Regular rate rhythm. Abdomen nontender. No edema. No drainage. Objective - Vital Signs Vital signs: Vital Signs Temp 98.6 F 03/08/24 22:23 Pulse 66 03/09/24 11:46 Resp 18 03/09/24 11:46 BP 176/86 03/09/24 11:46 Pulse Ox 99 03/09/24 11:46 FiO2 Intake & Output 03/08/24 03/09/24 03/09/24 18:59 06:59 18:59 Intake Total 400 128 Output Total 2900 Balance -2500 128 Weight 78.789 kg Intake: IV 10 Invasive Line 1 10 Oral 0 118 Hemodialysis 400 Output: Hemodialysis 2900 Other: Voiding Method Toilet Toilet Urinal Urinal # Voids 0 # Bowel Movements 0 - Labs CBC & Chem 7: 03/09/24 10:30 03/09/24 10:30 Labs: Abnormal Lab Results - Last 24 Hours (Table) 03/08/24 03/08/24 03/09/24 Range/Units 13:04 21:17 05:43 RBC (4.30-5.90) m/uL Hgb (13.0-17.5) gm/dL Hct (39.0-53.0) % MCV (80.0-100.0) fL RDW (11.5-15.5) % Plt Count (150-450) k/uL Sodium (137-145) mmol/L Chloride (98-107) mmol/L Carbon Dioxide (22-30) mmol/L BUN (9-20) mg/dL Creatinine (0.66-1.25) mg/dL Glucose (74-99) mg/dL POC Glucose (mg/dL) 118 H 112 H (70-110) mg/dL Troponin I 0.224 H* (0.000-0.034) ng/mL 03/09/24 03/09/24 03/09/24 Range/Units 10:30 10:30 10:30 RBC 3.43 L (4.30-5.90) m/uL Hgb 11.2 L (13.0-17.5) gm/dL Hct 34.6 L (39.0-53.0) % MCV 100.9 H (80.0-100.0) fL RDW 17.5 H (11.5-15.5) % Plt Count 119 L (150-450) k/uL Sodium 135 L (137-145) mmol/L Chloride 97 L (98-107) mmol/L Carbon Dioxide 31 H (22-30) mmol/L BUN 39 H (9-20) mg/dL Creatinine 9.24 H* (0.66-1.25) mg/dL Glucose 211 H (74-99) mg/dL POC Glucose (mg/dL) (70-110) mg/dL Troponin I 0.098 H* (0.000-0.034) ng/mL 03/09/24 Range/Units 11:36 RBC (4.30-5.90) m/uL Hgb (13.0-17.5) gm/dL Hct (39.0-53.0) % MCV (80.0-100.0) fL RDW (11.5-15.5) % Plt Count (150-450) k/uL Sodium (137-145) mmol/L Chloride (98-107) mmol/L Carbon Dioxide (22-30) mmol/L BUN (9-20) mg/dL Creatinine (0.66-1.25) mg/dL Glucose (74-99) mg/dL POC Glucose (mg/dL) 152 H (70-110) mg/dL Troponin I (0.000-0.034) ng/mL Assessment and Plan Plan: Assessment: 1. End-stage renal disease maintained on hemodialysis on Friday schedule via right upper extremity AV fistula. 2. Nausea and vomiting. Possibly from viral gastroenteritis versus gastropar esis. Improved. 3. Fluid overload. Improved with ultrafiltration. 4. Hypertension with chronic kidney disease. Worsened from nausea and vomiting. Better. 5. Diabetes mellitus. 6. Left foot ulcer for which she follows with wound care every 2 weeks. 7. Coronary disease with prior cardiac stenting. 8. Chronic kidney disease mineral bone disease. 9. Chronic systolic CHF with ejection fraction of 45% with moderate to severe tricuspid regurgitation from echocardiogram done in 2021. Plan: Hemodialysis tomorrow. Increase dose of hydralazine. Hold for systolic blood pressure less than 120.
--- NOTE | 2024-03-09 12:29 | P.CONS ---
History of Present Illness - Reason for Consult Consult date: 03/09/24 wound care - History of Present Illness This is a 43-year-old patient known to the wound care center who follows with Dr. Crawford currently utilizing Hydrofera Blue to the site. Patient ulceration have been improving.Original cause of wound was Blister. The date acquired was: 06/12/2022. The wound has been in treatment 85 weeks. The wound is currently classified as a Grade 2 wound with etiology of Diabetic Wound/Ulcer of the Lower Extremity and is located on the Left,Lateral Foot. The wound measures 2.3cm brenna gth x 2.3cm width x 0.1cm depth; 4.155cm^2 area and 0.415cm^3 volume. There is Fat Layer (Subcutaneous Tissue) exposed. There is a medium amount of drainage noted. The wound margin is thickened. There is small (1-33%) pink granulation within the wound bed. There is a large (67-100%) amount of necrotic tissue within the wound bed. The periwound skin appearance exhibited: Callus, Scarring, Dry/Scaly, Maceration. The periwound skin appearance did not exhibit: Crepitus, Excoriation, Induration, Rash, Atrophie [place], Cyanosis, Ecchymosis, Hemosiderin Staining, Mottled, Pallor, Rubor, Erythema. Periwound temperature was noted as No Abnormality. Review Of Systems: Constitutional: No fever, no chills, no night sweats. No weight change. No weakness, fatigue or lethargy. No daytime sleepiness. Integumentary:reports wounds, no lesions. No rash or pruritus. No unusual bruising. No change in hair or nails. Physical exam: General Appearance: Alert, cooperative, no distress, appears stated age. Skin: See HPI all other Skin color, texture, tugor normal, no rashes or lesions. Neurologic: Alert oriented x3 Assessment: 1. Nonpressure ulcer of other part of left foot with fat layer exposure 2. Diabetic foot ulceration Plan: 1. Apply collagen, saline moist gauze, dry gauze, rolled gauze and secure with paper tape. Change Friday. Patient will follow-up with Dr. Crawford on March 22. Thank you for the consultation any questions please contact the wound care center DNP note has been reviewed and discussed with Dr. Vincent and the impression and plan of care has been directed as dictated. Past Medical History Past Medical History: Coronary Artery Disease (CAD), Heart Failure, Eye Disorder, GERD/Reflux, Hyperlipidemia, Hypertension, Myocardial Infarction (DE), Renal Disease, Respiratory Disorder Additional Past Medical History / Comment(s): Pt recently admitted to [facility] on 05/09/20 with acute on chronic CHF/amyloidosis with generalized anasarca/acute on chronic kidney injury/acute anemia/advanced CAD/valvular disease/severe pulmonary htn/abnormal liver test/hyperlipidemia. Other hx: IDDM type II, pt states informed he had kidney disease in Feb, 2020 then ESRD diagnosed 05/09/20 with hemodialysis M/W/F,neuropathy bilateral feet, L foot ulcer with debridements, L eye blindness d/t diabetic retinopathy, ischemic cardiomyopathy, anasarca/lower leg edema. Last Myocardial Infarction Date:: 03/30/2018 History of Any Multi-Drug Resistant Organisms: None Reported Past Surgical History: Heart Catheterization With Stent Additional Past Surgical History / Comment(s): 05/17/20 R subclavian hemodialysis catheter, debridements L foot wound, R eye surgery-pt believes to remove cataract, SEAN fistula Additional Past Anesthesia/Blood Transfusion Reaction / Comm: During 3rd debridement L foot ulcer Date of Last Stent Placement:: 03/31/2018 Past Psychological History: No Psychological Hx Reported Additional Psychological History / Comment(s): Pt recently moved up from [place] to live with his mother. He is applying for disability and having difficulty with the forms. Pt's car recently has broken down and has not been able to get it fixed, missed dialysis d/t ride problem and unable to get to [place] for dialysis. Mother states pt can use bus to get to local appts. Smoking Status: Never smoker Past Alcohol Use History: None Reported Past Drug Use History: None Reported - Past Family History Mother Family Medical History: Diabetes Mellitus, Hyperlipidemia, Hypertension Father Family Medical History: Diabetes Mellitus, Hypertension Medications and Allergies Home Medications Medication Instructions Recorded Confirmed Type Insulin Glargine,Hum.rec.anlog 10 unit SQ HS 05/09/20 03/08/24 History [Lantus Solostar Pen] Nitroglycerin Sl Tabs [Nitrostat] 0.4 mg SL Q5M PRN 05/09/20 03/08/24 History Furosemide [Lasix] 80 mg PO BID PRN 11/03/20 03/08/24 History Losartan Potassium [Cozaar] 100 mg PO DAILY 11/03/20 03/08/24 History carvediloL [Coreg] 50 mg PO BID 11/03/20 03/08/24 History cloNIDine HCL [Catapres] 0.1 mg PO BID PRN 11/03/20 03/08/24 History Dicyclomine [Bentyl] 10 mg PO TID-W/MEALS 08/07/22 03/08/24 History hydrALAZINE HCL [Apresoline] 50 mg PO TID-W/MEALS 08/07/22 03/08/24 History Dicyclomine [Bentyl] 10 mg PO DAILY PRN 03/08/24 03/08/24 History NIFEdipine XL [Procardia Xl] 30 mg PO DAILY 03/08/24 03/08/24 History NIFEdipine XL [Procardia Xl] 90 mg PO HS 03/08/24 03/08/24 History Allergies Allergy/AdvReac Type Severity Reaction Status Date / Time nickel Allergy Rash/Hives Verified 08/20/22 06:28 Physical Exam Vitals: Vital Signs Temp Pulse Pulse Resp BP BP BP 03/09/24 11:46 66 18 176/86 03/09/24 09:22 66 16 153/79 03/09/24 04:00 69 16 141/65 03/09/24 02:00 71 16 03/09/24 00:00 71 16 172/84 03/08/24 22:23 98.6 F 18 207/107 03/08/24 21:20 98.4 F 71 18 188/91 03/08/24 19:35 71 18 194/102 03/08/24 18:29 72 18 207/107 03/08/24 17:30 73 18 223/120 03/08/24 13:43 67 18 215/107 Pulse Ox 03/09/24 11:46 99 03/09/24 09:22 100 03/09/24 04:00 98 03/09/24 02:00 03/09/24 00:00 99 03/08/24 22:23 03/08/24 21:20 99 03/08/24 19:35 98 03/08/24 18:29 100 03/08/24 17:30 100 03/08/24 13:43 97 Intake and Output 03/08/24 03/09/24 03/09/24 22:59 06:59 14:59 Intake Total 400 128 Output Total 2900 Balance -2500 128 Intake: IV 10 Invasive Line 1 10 Oral 0 118 Hemodialysis 400 Output: Hemodialysis 2900 Other: Voiding Method Toilet Toilet Toilet Urinal Urinal Urinal # Voids 0 0 # Bowel Movements 0 Weight 79.379 kg 78.789 kg Results CBC & Chem 7: 03/09/24 10:30 03/09/24 10:30 Labs: Abnormal Lab Results - Last 24 Hours (Table) 03/08/24 03/08/24 03/09/24 Range/Units 13:04 21:17 05:43 RBC (4.30-5.90) m/uL Hgb (13.0-17.5) gm/dL Hct (39.0-53.0) % MCV (80.0-100.0) fL RDW (11.5-15.5) % Plt Count (150-450) k/uL Sodium (137-145) mmol/L Chloride (98-107) mmol/L Carbon Dioxide (22-30) mmol/L BUN (9-20) mg/dL Creatinine (0.66-1.25) mg/dL Glucose (74-99) mg/dL POC Glucose (mg/dL) 118 H 112 H (70-110) mg/dL Troponin I 0.224 H* (0.000-0.034) ng/mL 03/09/24 03/09/24 03/09/24 Range/Units 10:30 10:30 10:30 RBC 3.43 L (4.30-5.90) m/uL Hgb 11.2 L (13.0-17.5) gm/dL Hct 34.6 L (39.0-53.0) % MCV 100.9 H (80.0-100.0) fL RDW 17.5 H (11.5-15.5) % Plt Count 119 L (150-450) k/uL Sodium 135 L (137-145) mmol/L Chloride 97 L (98-107) mmol/L Carbon Dioxide 31 H (22-30) mmol/L BUN 39 H (9-20) mg/dL Creatinine 9.24 H* (0.66-1.25) mg/dL Glucose 211 H (74-99) mg/dL POC Glucose (mg/dL) (70-110) mg/dL Troponin I 0.098 H* (0.000-0.034) ng/mL 03/09/24 Range/Units 11:36 RBC (4.30-5.90) m/uL Hgb (13.0-17.5) gm/dL Hct (39.0-53.0) % MCV (80.0-100.0) fL RDW (11.5-15.5) % Plt Count (150-450) k/uL Sodium (137-145) mmol/L Chloride (98-107) mmol/L Carbon Dioxide (22-30) mmol/L BUN (9-20) mg/dL Creatinine (0.66-1.25) mg/dL Glucose (74-99) mg/dL POC Glucose (mg/dL) 152 H (70-110) mg/dL Troponin I (0.000-0.034) ng/mL Assessment and Plan (1) Non-pressure chronic ulcer of other part of left foot with fat layer exposed Current Visit: Yes Status: Acute Code(s): L97.522 - NON-PRS CHRONIC ULCER OTH PRT LEFT FOOT W FAT LAYER EXPOSED SNOMED Code(s): 91172973273510127 (2) Type 2 diabetes mellitus with foot ulcer Current Visit: Yes Status: Acute Code(s): E11.621 - TYPE 2 DIABETES MELLITUS WITH FOOT ULCER; L97.509 - NON-PRESSURE CHRONIC ULCER OTH PRT UNSP FOOT W UNSP SEVERITY SNOMED Code(s): 370821213
--- NOTE | 2024-03-09 14:54 | CA ---
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 67 - 155 / 56 - 104 cm??? LV Systolic Volume MOD BP 116.4 cm??? 22 - 58 / 19 - 49 cm??? LV Ejection Fraction MOD BP 47.9 % >= 55 % LV Cardiac Index MOD BP 3408.4 cm???/min???m??? LV Diastolic Volume MOD 4C 229.1 cm??? LV Systolic Volume MOD 4C 96.5 cm??? LV Ejection Fraction MOD 4C 57.9 % LV Cardiac Index MOD 4C 4220.6 cm???/min???m??? LV Diastolic Length 4C 10.6 cm LV Systolic Length 4C 8.6 cm LV Diastolic Volume MOD 2C 216.2 cm??? LV Systolic Volume MOD 2C 126.8 cm??? LV Ejection Fraction MOD 2C 41.4 % LV Cardiac Index MOD 2C 2847.7 cm???/min???m??? LV Diastolic Length 2C 10.7 cm LV Systolic Length 2C 9.6 cm LA Volume 135.6 cm??? 18 - 58 / 22 - 52 cm??? LA Volume Index 67.4 cm???/m??? 16 - 28 cm???/m??? Ascending Aorta Diameter 3.3 cm DOPPLER AV Peak Velocity 149.2 cm/s AV Peak Gradient 8.9 mmHg AV Mean Velocity 86.6 cm/s AV Mean Gradient 3.7 mmHg AV Velocity Time Integral 28.4 cm LVOT Peak Velocity 109.6 cm/s LVOT Peak Gradient 4.8 mmHg LVOT Velocity Time Integral 24.5 cm LVOT Stroke Volume 91.8 cm??? LVOT Stroke Volume Index 45.6 ml/m??? LVOT Cardiac Index 2922.7 cm???/min???m??? AV Area Cont Eq vti 3.2 cm??? AV Area Cont Eq pk 2.8 cm??? MV Area PHT 4.2 cm??? Mitral E Point Velocity 92.6 cm/s Mitral A Point Velocity 46.1 cm/s Mitral E to A Ratio 2.0 MV Deceleration Time 181.7 ms TR Peak Velocity 324.4 cm/s TR Peak Gradient 42.1 mmHg Right Atrial Pressure 20.0 mmHg Pulmonary Artery Systolic Pressu 62.1 mmHg Right Ventricular Systolic Press 62.1 mmHg PV Peak Velocity 99.6 cm/s PV Peak Gradient 4.0 mmHg FINDINGS Left Ventricle Left ventricular ejection fraction is estimated at 45-50 %. Severely increased septal wall thickness. Severely increased left ventricular diastolic volume. Severely increased left ventricular systolic volume. Mildly decreased left ventricular ejection fraction. Global hypokinesis. Abnormal average global longitudinal strain of the left ventricle with a value of -12%. Right Ventricle Moderate right ventricular dilatation with mildly reduced function. Severely elevated right ventricular systolic pressure. Right Atrium Severe right atrial dilatation. Left Atrium Severely increased left atrial volume. Moderately increased left atrial area. Global Mitral Valve Structurally normal mitral valve. No evidence for mitral valve prolapse. No mitral stenosis. Mild mitral regurgitation. Aortic Valve Trileaflet aortic valve. No aortic valve stenosis or regurgitation. Tricuspid Valve Structurally normal tricuspid valve. No tricuspid stenosis. Moderate tricuspid regurgitation. Pulmonic Valve Structurally normal pulmonic valve. No pulmonic stenosis. [id number] pulmonic regurgitation. Pericardium Small pericardial effusion. Aorta Normal size aortic root and proximal ascending aorta. CONCLUSIONS Left ventricular ejection fraction 45-50% with global hypokinesis Severely increased left ventricular wall thickness RVSP 62 Mild mitral regurgitation Moderate tricuspid regurgitation Small pericardial effusion Previewed by: Dr. [place] Nguyễn DO (Electronically Signed) Final Date: 09 Mar 2024 14:53
[2024-03-09 16:25] LABS: Glucose,Whole Blood 130 mg/dL (70-110)
[2024-03-09] MEDS: FUROSEMIDE 80 MG TAB PO PRN (16:52)
[2024-03-09] MEDS: hydrALAZINE HCL 25 MG TAB PO SCH (16:52)
[2024-03-09] MEDS ORDERED: carvediloL 12.5 MG TAB PO SCH (17:30)
[2024-03-09 20:05] LABS: Glucose,Whole Blood 120 mg/dL (70-110)
[2024-03-09] MEDS: carvediloL 12.5 MG TAB PO SCH (20:26)
[2024-03-09] MEDS: INSULIN DETEMIR (LEVEMIR) 100 UNIT/ML SYR SQ SCH (21:24)
[2024-03-09 21:30] LABS: Glucose,Whole Blood 151 mg/dL (70-110)
[2024-03-10 05:05] LABS: Glucose,Whole Blood 100 mg/dL (70-110)
--- NOTE | 2024-03-10 08:38 | P.DS ---
Providers Date of admission: 03/08/24 06:05 Attending physician: Jj Galindo Consults: 03/08/24 06:04 Consult Physician Routine Consulting Provider: Laura Hebert Consult Reason/Comments: fluid overload Do you want consulting provider notified?: Already Contacted 03/08/24 06:35 Consult Physician Routine Consulting Provider: Brianne Rodriguez Consult Reason/Comments: CMP and elevated Trop Do you want consulting provider notified?: Yes Primary care physician: [facility] Course: HISTORY OF PRESENT ILLNESS: 43-year-old With active medical history of type 2 diabetes, end-stage renal disease on hemodialysis for the last 3 years, cardiomyopathy nonischemic, hypertension, hyperlipidemia, chronic neuropathy, retinopathy with vision loss in the left eye, chronic history of ulcer in the foot been seen at the wound clinic for a long time. Apparently has not been feeling well for the last few days with feeling sick to his stomach with nausea and vomiting severe GERD has not been able to keep his medication down for over 48 hours his blood sugar at home was over 400 with extremely high blood pressure he is taking clonidine to reduce his blood pressure did not work blood pressure over 200 developed to have severe dyspnea and worsening shortness of breath with more fluid retention did not miss his hemodialysis last time and this last week patient been doing very well with hemodialysis very compliant with all his appointment medication regularly. Ended up coming to the emergency department with above problem found to have blood pressure of 224/108 quite dyspneic with quite fluid retention chest x-ray showed fluid overload with congestive heart failure exacerbation his troponin was 0.082 creatinine up to 11.54 glucose was 128 and his lab with normal white blood cell hemoglobin 11.4. Patient is clearly fluid overload specially with no effect of his meds for the last 48 hours. Nephrology apparently were notified and they are going to do urgent hemodialysis patient was initiated on labetalol IV with some metoclopramide IV to reduce his nausea he will be admitted to the hospital with above problem. 03/09/2024: He is feeling much better after hemodialysis he is not shortness of breath, his blood pressure is quite bit high his clonidine was switched to 0.2 mg patch: Hydralazine was increased to 50 mg 3 times a day and 50 mg every 6 hours for systolic above 160 also starting patient on his Coreg along with losartan his blood pressure is much better this morning. His troponin is mildly elevated yesterday patient has known to have nonischemic cardiomyopathy and is seeing cardiology again today his echocardiogram was done and resolved posted in the system yet decision probably with cardiology nephrology with the patient should go for any intervention if not patient can be discharged sometime between today and tomorrow if stable from nephrology standpoint he might do dialysis 1 more time today will be nice to watch his b lood pressure at least for the next 12 hours to make sure his numbers negative be quite high like he had 1 he came in on his admission. 03/10/2024: His blood pressure is much better this morning with a combination of losartan, clonidine TTS 2, hydralazine 75 mg 3 times a day, Procardia XL 60 mg twice a day still using hydralazine on as-needed basis and continue Coreg 25 mg twice a day. Patient is well adjusted to dialysis he is going to do dialysis today but the shortness of breath is much better and had no further cardiac event or fluid overload. Seeing cardiology and continue conservative management no intervention required at this time. Echocardiogram from yesterday showed ejection fraction of 45-50 percentile with severely increased septal wall thickening and severely increased left ventricular diastolic volume: Mostly probably blood pressure related and cardiomyopathy as well also he has small pericardial fusion did not require any help. His right side pressure with pulmonary hypertension pressure above 60 mmHg at this point. Patient still see cardiology regularly he is to maintain hemodialysis on a regular basis but he is doing much better no further congestive heart failure symptoms or hypertension. Will be discharged home today to follow-up with dialysis 3 times a week and follow-up in our office in the next few days follow-up with cardiology as well. REVIEW OF SYSTEMS: CONSTITUTIONAL: Well-developed no acute respiratory distress. Feeling sick. EYES: No icterus sclerae, no conjunctivitis. EARS, NOSE, MOUTH, THROAT, and FACE: No sore throat, lymphadenopathy, carotid bruits or deformity. RESPIRATORY: Positive shortness of breath and wheezes no cough. CARDIOVASCULAR: Positive PND orthopnea palpitation with extremely high blood pressure. GASTROINTESTINAL: Intractable nausea vomiting no diarrhea quite epigastric pain discomfort with increased heartburn. GENITOURINARY: Does not make much urine no burning or discomfort no kidney stone. INTEGUMENT/BREAST: Negative for any muscular injury with mild osteoarthritis.. HEMATOLOGIC/LYMPHATIC: Chronic history of anemia. MUSCULOSKELTAL: Generalized muscle and joint pain. NEURLOGICAL: No LOC, Sz or syncope, blurred vision dizziness or abnormality.. BEHAVIORAL/PSYCH: Negative. ENDOCRINE: Negative. PHYSICAL EXAMINATION: General Appearance: Alert, cooperative, no distress, looks acutely sick. Neck HEENT: Supple, no lymphadenopathy, no thyroid enlargement, no carotid bruits. Dry mucosa. Lungs: Decreased breath sound bilaterally with fine rhonchi. Chest Wall: Decreased expansion with deep inspiration no tenderness and no deformity was found on exam, no costochondral pain or discomfort. Heart: Regular rate and rhythm, S1, S2, mild tachycardia positive S3 positive JVD. Back: Symmetric, no curvature, ROM normal, no CVA tenderness. Abdomen: Soft positive bowel sounds slight discomfort in the epigastric area and right upper quadrant no rebound rigidity or masses. No organomegaly. Extremities: Extremities normal, atraumatic, quite edema left foot has an open sore area still seen in the wound clinic. Pulses: 2+ and symmetric. Skin: Skin color, texture, tugor normal, no rashes or lesions. Neurologic: Alert oriented x3 cranial nerves II through XII intact, no motor deficit, no abnormal balance or gait. ASSESSMENT AND PLAN: _Severe dyspnea and shortness of breath is fluid overload from congestive heart failure exacerbation most likely diastolic dysfunction with much better with diuretics and dialysis still pending echo at this point. _Severe cardiomyopathy: Has been seeing cardiology regularly had previously diagnosed with? Of amyloid cardiomyopathy nonischemic type continue furosemide, losartan, amlodipine, Coreg and hydralazine. Still on Zaroxolyn as well. His echocardiogram will be reported today based on the results hopefully between cardiology and nephrology decide on further management if needed. _Severe urgent hypertension: Clonidine was adjusted up to 0.2 mg patch still on hydralazine 50 mg 3 times a day, losartan 100 mg daily and Coreg. His blood pressure is under better control today. _Significant fluid overload again combination of urgent hypertension with worsening symptoms with his current sickness, is much better after dialysis yesterday not clear whether he is irma do another dialysis session today or not. _Type 2 diabetes: Has been on insulin between short acting and Lantus resume medication continue Accu-Chek with sliding scale coverage. _Recurrent angina: Has been on Coreg, losartan, isosorbide and amlodipine. Seeing cardiology regularly elevated troponin CK troponin x 3 will be done and echocardiogram was ordered. _Nonhealing ulcer on the L foot continue to see the wound clinic on more regular basis. Continue topical care for now. much better. _Severe diabetic retinopathy with vision loss still control the sugar and the blood pressure the best plan to reduce any complication or side effect. _Severe neuropathy of the lower extremity patient not on any medication currently. _Gastroparesis and severe GERD: Has been on Zofran and Protonix can benefit from adding Reglan. _GI prophylaxis: Continue pantoprazole. _DVT prophylaxis: Patient will continue early mobilization and knee-high ANNE hose. Prognosis: Good. Discussion: Doing much better will finish dialysis today and patient probably be able to be discharged home today. Hospital course: Patient was admitted to the hospital on 03/08/2024 with severe dyspnea and shortness of breath with severe urgent hypertension and found to have blood pressure of 210/110. His dyspnea and shortness of breath with severe apparently he has done his dialysis without missing any time and he had over 2.5 pounds of water removed with dialysis but not a clear why the blood pressure and his fluid retention happened to be evaluated. Was admitted from the emergency department with quite a bit elevated BNP along with elevated troponin and chest x-ray picture significant for congestive heart failure exacerbation with? Of new NC. Patient was seen nephrology medication for his blood pressure were adjusted with the clonidine and switch to 0.2 mg, hydralazine up to 75 mg 3 times a day, losartan up to 100 mg a day and Coreg 25 mg twice a day remain on hydralazine on as-needed basis with his clonidine patch higher had helped quite bit. Finally his blood pressure started coming down patient mental Procardia XL total of 30 mg in the morning and 19 in the evening as before. Nephrology had maintain hemodialysis was dialyzed on Friday and will have hemodialysis today before his discharge home. He is feeling much better Cardiology do not see any need to do any invasive testing at this point his echocardiogram showed significant right ventricular systolic pressure of 62 mmHg also had severe left ventricular thickness and ventricular hypertrophy consistent with blood pressure. New prescription was sent to patient pharmacy and patient be discharged home today. Time spent on patient discharge was over 37 minutes. Patient Condition at Discharge: Fair Plan - Discharge Summary Discharge Rx Participant: No New Discharge Prescriptions: New hydrALAZINE HCL [Apresoline] 50 mg PO QID PRN #120 tab PRN Reason: for SBP above 150 cloNIDine 0.2 MG/24HR PATCH [Catapres-TTS] 1 patch TRANSDERM Q7D #4 patch Continue Insulin Glargine,Hum.rec.anlog [Lantus Solostar Pen] 10 unit SQ HS Nitroglycerin Sl Tabs [Nitrostat] 0.4 mg SL Q5M PRN PRN Reason: Chest Pain carvediloL [Coreg] 50 mg PO BID Furosemide [Lasix] 80 mg PO BID PRN PRN Reason: Edema Losartan Potassium [Cozaar] 100 mg PO DAILY Dicyclomine [Bentyl] 10 mg PO TID-W/MEALS Dicyclomine [Bentyl] 10 mg PO DAILY PRN PRN Reason: Gi Upset NIFEdipine XL [Procardia XL] 90 mg PO HS NIFEdipine XL [Procardia XL] 30 mg PO DAILY Changed hydrALAZINE HCL [Apresoline] 75 mg PO TID-W/MEALS #0 Discontinued cloNIDine HCL [Catapres] 0.1 mg PO BID PRN PRN Reason: ELEVATED BP Discharge Medication List Insulin Glargine,Hum.rec.anlog [Lantus Solostar Pen] 10 unit SQ HS 05/09/20 [History] Nitroglycerin Sl Tabs [Nitrostat] 0.4 mg SL Q5M PRN 05/09/20 [History] Furosemide [Lasix] 80 mg PO BID PRN 11/03/20 [History] Losartan Potassium [Cozaar] 100 mg PO DAILY 11/03/20 [History] carvediloL [Coreg] 50 mg PO BID 11/03/20 [History] Dicyclomine [Bentyl] 10 mg PO TID-W/MEALS 08/07/22 [History] Dicyclomine [Bentyl] 10 mg PO DAILY PRN 03/08/24 [History] NIFEdipine XL [Procardia XL] 30 mg PO DAILY 03/08/24 [History] NIFEdipine XL [Procardia XL] 90 mg PO HS 03/08/24 [History] cloNIDine 0.2 MG/24HR PATCH [Catapres-TTS] 1 patch TRANSDERM Q7D #4 patch 03/10/24 [Rx] hydrALAZINE HCL [Apresoline] 50 mg PO QID PRN #120 tab 03/10/24 [Rx] hydrALAZINE HCL [Apresoline] 75 mg PO TID-W/MEALS #0 05/22/24 [Rx] Follow up Appointment(s)/Referral(s): Justen Martines MD [STAFF PHYSICIAN] - 03/18/24 10:30 am Jj Galindo MD [Primary Care Provider] - 03/16/24 2:45 pm Jonn Marcum DO [STAFF PHYSICIAN] - 1 Week (Per staff, follow up at dialysis as scheduled.) Patient Instructions/Handouts: Heart Failure (DC) Discharge Disposition: HOME WITH HOME HEALTH SERVICES
[2024-03-10 09:43] VITALS: PULSE 63; TEMP 97.9
--- NOTE | 2024-03-10 11:15 | P.PN ---
Subjective Patient is seen in follow-up for end-stage renal disease. He is maintained on hemodialysis on Friday schedule. Tolerating dialysis well. Hemodynamically stable. No chest pain or shortness of breath. No vomiting or diarrhea. Vital signs stable. No acute distress. Regular rate rhythm. Abdomen nontender. No edema. No drainage. Objective - Vital Signs Vital signs: Vital Signs Temp 97.9 F 03/10/24 08:40 Pulse 63 03/10/24 08:40 Resp 16 03/10/24 08:40 BP 143/75 03/10/24 08:40 Pulse Ox 100 03/10/24 08:40 FiO2 Intake & Output 03/09/24 03/10/24 03/10/24 18:59 06:59 18:59 Intake Total 796 140 356 Output Total 0 Balance 796 140 356 Weight 79.6 kg Intake: IV 20 20 Invasive Line 1 20 20 Oral 776 120 356 Output: Stool 0 Other: Voiding Method Toilet Toilet Toilet Urinal Urinal Urinal # Voids 0 # Bowel Movements 0 - Labs CBC & Chem 7: 03/09/24 10:30 03/09/24 10:30 Labs: Abnormal Lab Results - Last 24 Hours (Table) 03/09/24 03/09/24 03/09/24 Range/Units 10:30 10:30 11:36 Sodium 135 L (137-145) mmol/L Chloride 97 L (98-107) mmol/L Carbon Dioxide 31 H (22-30) mmol/L BUN 39 H (9-20) mg/dL Creatinine 9.24 H* (0.66-1.25) mg/dL Glucose 211 H (74-99) mg/dL POC Glucose (mg/dL) 152 H (70-110) mg/dL Troponin I 0.098 H* (0.000-0.034) ng/mL 03/09/24 03/09/24 03/09/24 Range/Units 16:24 20:03 21:29 Sodium (137-145) mmol/L Chloride (98-107) mmol/L Carbon Dioxide (22-30) mmol/L BUN (9-20) mg/dL Creatinine (0.66-1.25) mg/dL Glucose (74-99) mg/dL POC Glucose (mg/dL) 130 H 120 H 151 H (70-110) mg/dL Troponin I (0.000-0.034) ng/mL Assessment and Plan Plan: Assessment: 1. End-stage renal disease maintained on hemodialysis on Friday schedule via right upper extremity AV fistula. 2. Nausea and vomiting. Possibly from viral gastroenteritis versus gastroparesis. Improved. 3. Fluid overload. Improved with ultrafiltration. 4. Hypertension with chronic kidney disease. Worsened from nausea and vomiting. Better. 5. Diabetes mellitus. 6. Left foot ulcer for which she follows with wound care every 2 weeks. 7. Coronary disease with prior cardiac stenting. 8. Chronic kidney disease mineral bone disease. 9. Chronic systolic CHF with ejection fraction of 45% with moderate tricuspid regurgitation. Plan: Currently seen while undergoing hemodialysis. Plan for discharge after dialysis today.
[2024-03-10 11:38] VITALS: BP 144/71; RESP 20
[2024-03-10 11:55] LABS: Glucose,Whole Blood 181 mg/dL (70-110)
--- NOTE | 2024-03-10 14:07 | P.PN ---
Subjective Progress Note Date: 03/10/24 Reason for Consult (text): CMP, elevated troponin History of present illness: This is a 43-year-old male patient of Dr. Martines with past medical history of end-stage renal disease on hemodialysis, hypertension, dilated cardiomyopathy with EF 45%, diabetes mellitus type 2, chronic systolic heart failure. We have been asked to evaluate the patient for CMP and elevated troponins. Patient states he Presented to the emergency center due to nausea and vomiting has not been able to take his medications for the past day. His blood sugar was running greater than 400 at home and blood pressure was extremely high. He states he has not missed any dialysis treatments. He denies any weight gain. He states he still makes a little bit of urine. He states he did have a little bit of chest pain yesterday and shortness of breath. He denies any chest pain at this time. EKG sinus tachycardia Chest x-ray: CHF WBC 8, hemoglobin 11.4. Sodium 135, potassium 5.2, chloride 97, BUN 56 creatinine 11.5. Glucose 128. Troponin 0.082. proBNP 85,300. Home cardiac medications: Coreg 50 mg twice daily, clonidine 0.1 mg twice daily as needed, Lasix 80 mg twice daily as needed, hydralazine 50 mg 3 times daily, losartan 100 mg daily, Procardia 30 mg in the morning and 90 mg at bedtime, Nitrostat as needed. Echocardiogram performed on 08/07/2022 revealed EF of 45% with global hypokinesis. Severely increased left ventricular wall thickness 1.7 cm. RVSP 73. Mild mitral regurgitation. Moderate to severe tricuspid regurgitation. Mild pulmonic regurgitation. Lexiscan Cardiolite stress test performed in the office on 01/14/2023 revealed negative stress test by EKG criteria. No evidence of ischemia, preserved LV function. 03/09 Patient is seen today in follow-up on the cardiac stepdown unit. Yesterday blood pressure readings were quite high and medication adjustments were made for that. Blood pressure today is 176/86, heart rate 66, pulse ox 99% on room air. Patient continues to deny chest pain. No shortness of breath. He has not no further episodes of nausea and vomiting. He is able to keep his medications down. Repeat blood work reveals hemoglobin 11.2. Sodium 135, potassium 4.5, BUN 39 creatinine 9.2. All troponins were 0.082, 0.085, 0.224, 0.098. proBNP 113,000. Echocardiogram is pending. Patient underwent hemodialysis yesterday and followed by nephrology. Coreg and clonidine patch were increased by nephrology. 03/10 Echocardiogram reveals EF 45 to 50% with global hypokinesis. Severely increased left ventricular wall thickness. RVSP 62. Mild mitral regurgitation. Moderate tricuspid regurgitation. Small pericardial effusion. Patient denies having any chest pain and no shortness of breath. Blood pressure 144/71, heart rate 63, pulse ox 99% on room air. Physical examination: Gen: This is a 43-year-old black male in no acute distress VS: reviewed HEENT: Head is atraumatic, normocephalic. Pupils equal, round. Sclerae is anicteric. NECK: Supple. No JVD. LUNGS: Clear to auscultation. No wheezes or rhonchi. No intercostal retractions. HEART: Regular rate and rhythm. Systolic murmur at the apex. ABDOMEN: Soft No tenderness. EXTREMITIES: No pedal edema. No calf tenderness. NEUROLOGICAL: Patient is awake, alert and oriented x3. Assessment: Elevated troponin most likely due to renal failure Hypertensive crisis/emergent Nonischemic cardiomyopathy secondary to hypertension Hypertension with hypertensive cardiovascular disease Plan: Continue current cardiac medications: Coreg was increased to 25 mg twice daily, clonidine patch 0.2 mg per 24-hour, hydralazine 50 mg 3 times daily, losartan 100 mg daily. Regarding elevated troponins, these were thought to be related to renal failure and no aggressive cardiac workup at this time. Patient may follow-up in the office with Dr. Martines for scheduling of an outpatient stress test. Nurse practitioner note has been reviewed, I agree with documented findings and plan of care. Patient was seen and examined. Objective - Vital Signs Vital signs: Vital Signs Temp 97.9 F 03/10/24 08:40 Pulse 63 03/10/24 08:40 Resp 16 03/10/24 08:40 BP 143/75 03/10/24 08:40 Pulse Ox 100 03/10/24 08:40 FiO2 Intake & Output 03/09/24 03/10/24 03/10/24 18:59 06:59 18:59 Intake Total 796 140 356 Output Total 0 Balance 796 140 356 Weight 79.6 kg Intake: IV 20 20 Invasive Line 1 20 20 Oral 776 120 356 Output: Stool 0 Other: Voiding Method Toilet Toilet Toilet Urinal Urinal Urinal # Voids 0 # Bowel Movements 0 - Labs CBC & Chem 7: 03/09/24 10:30 03/09/24 10:30 Labs: Abnormal Lab Results - Last 24 Hours (Table) 03/09/24 03/09/24 03/09/24 Range/Units 10:30 10:30 10:30 RBC 3.43 L (4.30-5.90) m/uL Hgb 11.2 L (13.0-17.5) gm/dL Hct 34.6 L (39.0-53.0) % MCV 100.9 H (80.0-100.0) fL RDW 17.5 H (11.5-15.5) % Plt Count 119 L (150-450) k/uL Sodium 135 L (137-145) mmol/L Chloride 97 L (98-107) mmol/L Carbon Dioxide 31 H (22-30) mmol/L BUN 39 H (9-20) mg/dL Creatinine 9.24 H* (0.66-1.25) mg/dL Glucose 211 H (74-99) mg/dL POC Glucose (mg/dL) (70-110) mg/dL Troponin I 0.098 H* (0.000-0.034) ng/mL 03/09/24 03/09/24 03/09/24 Range/Units 11:36 16:24 20:03 RBC (4.30-5.90) m/uL Hgb (13.0-17.5) gm/dL Hct (39.0-53.0) % MCV (80.0-100.0) fL RDW (11.5-15.5) % Plt Count (150-450) k/uL Sodium (137-145) mmol/L Chloride (98-107) mmol/L Carbon Dioxide (22-30) mmol/L BUN (9-20) mg/dL Creatinine (0.66-1.25) mg/dL Glucose (74-99) mg/dL POC Glucose (mg/dL) 152 H 130 H 120 H (70-110) mg/dL Troponin I (0.000-0.034) ng/mL 03/09/24 Range/Units 21:29 RBC (4.30-5.90) m/uL Hgb (13.0-17.5) gm/dL Hct (39.0-53.0) % MCV (80.0-100.0) fL RDW (11.5-15.5) % Plt Count (150-450) k/uL Sodium (137-145) mmol/L Chloride (98-107) mmol/L Carbon Dioxide (22-30) mmol/L BUN (9-20) mg/dL Creatinine (0.66-1.25) mg/dL Glucose (74-99) mg/dL POC Glucose (mg/dL) 151 H (70-110) mg/dL Troponin I (0.000-0.034) ng/mL
== END 2024-03-10 12:57 | disposition home health service (06) | DRG 291 ==
LOC: EC 00:40 → 3SCARD 06:05
PROVIDERS: ADMIT Internal Medicine Geriatric Medicine; ATTEND Internal Medicine Geriatric Medicine
PROC: 5A1D70Z Performance of Urinary Filtration, Intermittent, Less than 6 Hours Per Day (ICD-10-PCS; principal; 2024-03-08)
DX: I13.2 Hypertensive heart and chronic kidney disease with heart failure and with stage 5 chronic kidney disease, or end stage renal disease (principal); I50.43 Acute on chronic combined systolic (congestive) and diastolic (congestive) heart failure; N18.6 End stage renal disease; I16.9 Hypertensive crisis, unspecified; E85.4 Organ-limited amyloidosis; I31.39 Other pericardial effusion (noninflammatory); I96 Gangrene, not elsewhere classified; I16.1 Hypertensive emergency; I42.0 Dilated cardiomyopathy; E11.22 Type 2 diabetes mellitus with diabetic chronic kidney disease; E11.319 Type 2 diabetes mellitus with unspecified diabetic retinopathy without macular edema; E11.621 Type 2 diabetes mellitus with foot ulcer; I25.5 Ischemic cardiomyopathy; I27.20 Pulmonary hypertension, unspecified; K31.84 Gastroparesis; L97.522 Non-pressure chronic ulcer of other part of left foot with fat layer exposed; E11.43 Type 2 diabetes mellitus with diabetic autonomic (poly)neuropathy; E11.42 Type 2 diabetes mellitus with diabetic polyneuropathy; E11.65 Type 2 diabetes mellitus with hyperglycemia; E78.5 Hyperlipidemia, unspecified; I25.119 Atherosclerotic heart disease of native coronary artery with unspecified angina pectoris; I25.2 Old myocardial infarction; I43 Cardiomyopathy in diseases classified elsewhere; M89.8X9 Other specified disorders of bone, unspecified site; K21.9 Gastro-esophageal reflux disease without esophagitis; Z79.4 Long term (current) use of insulin; Z82.49 Family history of ischemic heart disease and other diseases of the circulatory system; Z79.899 Other long term (current) drug therapy; Z95.5 Presence of coronary angioplasty implant and graft; Z99.2 Dependence on renal dialysis; I08.1 Rheumatic disorders of both mitral and tricuspid valves; Z88.8 Allergy status to other drugs, medicaments and biological substances; Z86.74 Personal history of sudden cardiac arrest; Z98.42 Cataract extraction status, left eye; Z98.41 Cataract extraction status, right eye
CPT/HCPCS: 36415; 71046; 80053; 82150; 83690; 83880; 84484; 85025; 90935; 93005; 93306; 96361; 96374; 96375; 96376; 99285

== ENCOUNTER 2024-06-16 00:17 | Inpatient (IN) | payer MEDICARE ==
--- NOTE | 2024-06-16 00:39 | ED ---
Recheck HPI - General Chief Complaint: Back Pain/Injury Stated Complaint: Back Pain Time Seen by Provider: 06/16/24 00:26 Source: patient, RN notes reviewed, old records reviewed Mode of arrival: EMS Limitations: no limitations - History of Present Illness Initial Comments: This is a 43-year-old male to the ER for evaluation of generalized pain chest pa in body aches and pains some shortness of breath here in the emergency department today continues with shortness of breath here in the ER weakness and generalized body pain no chest pain. Patient has recently had nausea vomiting unable to take home medications Returns Today for: persistent/worsening pain related to initial visit Symptoms Since Prior Visit: worsening pain Associated Symptoms: none Treatments Prior to Arrival: Given Pain Meds on - Related Data Home Medications Medication Instructions Recorded Confirmed Insulin Glargine,Hum.rec.anlog 10 unit SQ HS 05/09/20 06/16/24 [Lantus Solostar Pen] Nitroglycerin Sl Tabs [Nitrostat] 0.4 mg SL Q5M PRN 05/09/20 06/16/24 Losartan Potassium [Cozaar] 100 mg PO DAILY 11/03/20 06/16/24 NIFEdipine XL [Procardia XL] 90 mg PO HS 03/08/24 06/16/24 Sacubitril/Valsartan [Entresto 24 1 tab PO BID 06/16/24 06/16/24 mg-26 mg Tablet] hydrALAZINE HCL [Apresoline] 50 mg PO TID-W/MEALS 06/16/24 06/16/24 Previous Rx's Medication Instructions Recorded Aspirin 81 mg PO DAILY #30 tab 06/17/24 Furosemide [Lasix] 80 mg PO BID@0900,1600 tab 06/17/24 carvediloL [Coreg*] 25 mg PO BID-W/MEALS #120 tab 06/17/24 cloNIDine 0.3 MG/24HR PATCH 1 patch TRANSDERM Q7D #2 patch 06/17/24 [Catapres-TTS] Allergies Allergy/AdvReac Type Severity Reaction Status Date / Time nickel Allergy Rash/Hives Verified 06/16/24 08:15 Review of Systems ROS Statement: Those systems with pertinent positive or pertinent negative responses have been documented in the HPI. ROS Other: All systems not noted in ROS Statement are negative. Past Medical History Past Medical History: Coronary Artery Disease (CAD), Heart Failure, Eye Disorder, GERD/Reflux, Hyperlipidemia, Hypertension, Myocardial Infarction (NH), Renal Disease, Respiratory Disorder Additional Past Medical History / Comment(s): Pt recently admitted to [facility] on 05/09/20 with acute on chronic CHF/amyloidosis with generalized anasarca/acute on chronic kidney injury/acute anemia/advanced CAD/valvular disease/severe pulmonary htn/abnormal liver test/hyperlipidemia. Other hx: IDDM type II, pt states informed he had kidney disease in Feb, 2020 then ESRD diagnosed 05/09/20 with hemodialysis M/W/F,neuropathy bilateral feet, L foot ulcer with debride ments, L eye blindness d/t diabetic retinopathy, ischemic cardiomyopathy, anasarca/lower leg edema. Last Myocardial Infarction Date:: 03/30/2018 History of Any Multi-Drug Resistant Organisms: None Reported Past Surgical History: Heart Catheterization With Stent Additional Past Surgical History / Comment(s): 05/17/20 R subclavian hemodialysis catheter, debridements L foot wound, R eye surgery-pt believes to remove cataract, SEAN fistula Additional Past Anesthesia/Blood Transfusion Reaction / Comment(s): During 3rd debridement L foot ulcer Date of Last Stent Placement:: 03/31/2018 Past Psychological History: No Psychological Hx Reported Smoking Status: Never smoker Past Alcohol Use History: None Reported Past Drug Use History: None Reported - Past Family History Mother Family Medical History: Diabetes Mellitus, Hyperlipidemia, Hypertension Father Family Medical History: Diabetes Mellitus, Hypertension General Exam Limitations: no limitations, altered mental status General appearance: alert, in no apparent distress, anxious, in distress Head exam: Present: atraumatic, normocephalic, normal inspection Eye exam: Present: normal appearance, PERRL, EOMI. Absent: scleral icterus, conjunctival injection, periorbital swelling ENT exam: Present: normal exam, mucous membranes moist Neck exam: Present: normal inspection. Absent: tenderness, meningismus, lymphadenopathy Respiratory exam: Present: respiratory distress, rhonchi, accessory muscle use, decreased breath sounds, prolonged expiratory. Absent: wheezes, rales, stridor Cardiovascular Exam: Present: regular rate, normal rhythm, normal heart sounds. Absent: systolic murmur, diastolic murmur, rubs, gallop, clicks GI/Abdominal exam: Present: soft, normal bowel sounds. Absent: distended, tenderness, guarding, rebound, rigid Extremities exam: Present: normal inspection, full ROM, normal capillary refill. Absent: tenderness, pedal edema, joint swelling, calf tenderness Back exam: Present: normal inspection Neurological exam: Present: alert, oriented X3, CN II-XII intact Psychiatric exam: Present: normal affect, normal mood Skin exam: Present: warm, dry, intact, normal color. Absent: rash Course Vital Signs 06/16/24 06/16/24 06/16/24 00:19 00:34 00:59 Temperature 98.2 F Pulse Rate 83 83 81 Pulse Rate [ Assistant Professor In Family Studies ] Respiratory 23 20 Rate Blood Pressure 212/97 218/108 Blood Pressure [Left Arm] O2 Sat by Pulse 92 L 95 Oximetry 06/16/24 06/16/24 06/16/24 01:00 01:09 01:36 Temperature Pulse Rate 80 79 78 Pulse Rate [ Assistant Professor In Family Studies ] Respiratory 18 18 Rate Blood Pressure 196/96 177/90 Blood Pressure [Left Arm] O2 Sat by Pulse 96 96 Oximetry 06/16/24 06/16/24 06/16/24 01:41 02:00 02:39 Temperature Pulse Rate 76 74 76 Pulse Rate [ Assistant Professor In Family Studies ] Respiratory 20 18 18 Rate Blood Pressure 172/92 190/98 190/102 Blood Pressure [Left Arm] O2 Sat by Pulse 97 96 97 Oximetry 06/16/24 06/16/24 06/16/24 03:11 03:18 03:30 Temperature Pulse Rate 72 73 Pulse Rate [ Assistant Professor In Family Studies ] Respiratory 13 13 Rate Blood Pressure 187/104 204/111 Blood Pressure [Left Arm] O2 Sat by Pulse 98 100 Oximetry 06/16/24 06/16/24 06/16/24 03:45 04:21 04:22 Temperature Pulse Rate 73 Pulse Rate [ Assistant Professor In Family Studies ] Respiratory 13 21 Rate Blood Pressure 208/115 202/113 207/112 Blood Pressure [Left Arm] O2 Sat by Pulse 98 100 Oximetry 06/16/24 06/16/24 06/16/24 04:33 06:14 07:29 Temperature Pulse Rate 72 71 70 Pulse Rate [ Assistant Professor In Family Studies ] Respiratory 19 15 16 Rate Blood Pressure 193/98 200/102 196/102 Blood Pressure [Left Arm] O2 Sat by Pulse 100 100 99 Oximetry 06/16/24 06/16/24 06/16/24 09:00 11:13 11:47 Temperature Pulse Rate 71 70 73 Pulse Rate [ Assistant Professor In Family Studies ] Respiratory 16 18 18 Rate Blood Pressure 184/91 207/113 172/98 Blood Pressure [Left Arm] O2 Sat by Pulse 99 98 98 Oximetry 06/16/24 06/16/24 06/16/24 13:56 17:00 18:27 Temperature 98.2 F Pulse Rate 84 81 Pulse Rate [ 80 Assistant Professor In Family Studies ] Respiratory 16 24 Rate Blood Pressure 177/88 166/73 Blood Pressure 211/104 [Left Arm] O2 Sat by Pulse Oximetry 06/16/24 19:41 Temperature 101.8 F H Pulse Rate 80 Pulse Rate [ Assistant Professor In Family Studies ] Respiratory 20 Rate Blood Pressure 160/85 Blood Pressure [Left Arm] O2 Sat by Pulse 93 L Oximetry - Reevaluation(s) Reevaluation #1: 06/16/24 01:50 Medical records reviewed Reevaluation #2: 06/16/24 01:50 Patient symptoms improved Reevaluation #3: 06/16/24 01:50 Patient informed of results and questions answered Reevaluation #4: Was pt. sent in by a medical professional or institution (, PA, NETWORK CONTROL OPERATOR, urgent care, hospital, or long-term...) When possible be specific @ -no Did you speak to anyone other than the patient for history (EMS, parent, family, police, friend...)? What history was obtained from this source @ -no Did you review nursing and triage notes (agree or disagree)? Why? @ -agree Are old charts reviewed (outside hosp., previous admission, EMS record, old EKG, old radiological studies, urgent care reports/EKG's, long-term records)? Report findings @ -yes Differential Diagnosis (chest pain, altered mental status, abdominal pain women, abdominal pain men, vaginal bleeding, weakness, fever, dyspnea, syncope, headache, dizziness, GI bleed, back pain, seizure, CVA, palpatations, mental health, musculoskeletal)? @ -prior EKG interpreted by me (3pts min.). @ -yes X-rays interpreted by me (1pt min.). @ -yes significant CHF CT interpreted by me (1pt min.). @ -no U/S interpreted by me (1pt. min.). @ -no What testing was considered but not performed or refused? (CT, X-rays, U/S, labs)? Why? @ -none What meds were considered but not given or refused? Why? @ -none Did you discuss the management of the patient with other professionals (professionals i.e. , PA, NETWORK CONTROL OPERATOR, lab, RT, psych nurse, psychiatric social worker supervisor, final inspector balance wheel, teacher, combatant diver officer, housing case manager)? Give summary @ -no Was smoking cessation discussed for >3mins.? @ -no Was critical care preformed (if so, how long)? @ -yes31 Were there social determinants of health that impacted care today? How? (Homelessness, low income, unemployed, alcoholism, drug addiction, transportation, low edu. Level, literacy, decrease access to med. care, detention, rehab)? @ -none Was there de-escalation of care discussed even if they declined (Discuss DNR or withdrawal of care, Hospice)? DNR status @ -no What co-morbidities impacted this encounter? (DM, HTN, Smoking, COPD, CAD, Cancer, CVA, ARF, Chemo, Hep., AIDS, mental health diagnosis, sleep apnea, morbid obesity)? @ -none Was patient admitted / discharged? Hospital course, mention meds given and route, prescriptions, significant lab abnormalities, going to OR and other pertinent info. @ - 43-year-old male to ER for evaluation of shortness of breath generalized body aches and pains nausea vomiting, patient has significant respiratory distress with severely elevated blood pressure and hypertensive emergency. Patient will be admitted for CHF and dialysis patient Admitted Undiagnosed new problem with uncertain prognosis? @ -no Drug Therapy requiring intensive monitoring for toxicity (Heparin, Nitro, Insulin, Cardizem)? @ -no Were any procedures done? @ -no Diagnosis/symptom? @ -Respiratory distress and hypertensive emergency Acute, or Chronic, or Acute on Chronic? @ -Acute Uncomplicated (without systemic symptoms) or Complicated (systemic symptoms)? @ -Complicated Side effects of treatment? @ -no Exacerbation, Progression, or Severe Exacerbation? @ -exacerbation Poses a threat to life or bodily function? How? (Chest pain, USA, NH, pneumonia, PE, COPD, DKA, ARF, appy, cholecystitis, CVA, Diverticulitis, Homicidal, Suicidal, threat to staff... and all critical care pts) @ -yes Reevaluation #5: Differential Dyspnea: Coronary syndrome, arrhythmia, tamponade, asthma, COPD, pulmonary embolism, pneumonia, pneumothorax, pulmonary effusion, anaphylaxis, diabetic ketoacidosis, flailed chest, pulmonary contusion, diaphragmatic rupture, anemia, neuromuscular, this is not meant to be an all-inclusive list. - Consultations Consultation #1: Spoke with Dr. Walter who agrees to admit this patient Medical Decision Making - Medical Decision Making 43-year-old male to ER for evaluation of shortness of breath generalized body aches and pains nausea vomiting, patient has significant respiratory distress with severely elevated blood pressure and hypertensive emergency. Patient will be admitted for CHF and dialysis patient - Lab Data Result diagrams: 06/17/24 02:39 06/17/24 05:41 Lab Results 06/16/24 06/16/24 06/16/24 Range/Units 00:36 00:36 00:36 WBC 6.1 (3.8-10.6) k/uL RBC 3.66 L (4.30-5.90) m/uL Hgb 11.6 L (13.0-17.5) gm/dL Hct 36.9 L (39.0-53.0) % MCV 100.9 H (80.0-100.0) fL MCH 31.8 (25.0-35.0) pg MCHC 31.5 (31.0-37.0) g/dL RDW 18.4 H (11.5-15.5) % Plt Count 119 L (150-450) k/uL MPV 11.4 Neutrophils % 89 % Lymphocytes % 4 % Monocytes % 6 % Eosinophils % 1 % Basophils % 0 % Neutrophils # 5.4 (1.3-7.7) k/uL Lymphocytes # 0.2 L (1.0-4.8) k/uL Monocytes # 0.4 (0-1.0) k/uL Eosinophils # 0.0 (0-0.7) k/uL Basophils # 0.0 (0-0.2) k/uL Anisocytosis Slight Macrocytosis Moderate PT 13.4 H (10.0-12.5) sec INR 1.3 H (<1.2) APTT 28.3 (22.0-30.0) sec Sodium 138 (137-145) mmol/L Potassium 5.3 H (3.5-5.1) mmol/L Chloride 101 (98-107) mmol/L Carbon Dioxide 23 (22-30) mmol/L Anion Gap 14 mmol/L BUN 48 H (9-20) mg/dL Creatinine 10.04 H* (0.66-1.25) mg/dL Est GFR (CKD-EPI)AfAm 7 (>60 ml/min/1.73 sqM) Est GFR (CKD-EPI)NonAf 6 (>60 ml/min/1.73 sqM) Glucose 170 H (74-99) mg/dL POC Glucose (mg/dL) (70-110) mg/dL POC Glu Database Technician ID Calcium 9.7 (8.4-10.2) mg/dL Magnesium 2.3 (1.6-2.3) mg/dL Total Bilirubin 1.2 (0.2-1.3) mg/dL AST 22 (17-59) U/L ALT 19 (4-49) U/L Alkaline Phosphatase 131 H (38-126) U/L Troponin I (0.000-0.034) ng/mL NT-Pro-B Natriuret Pep 05087 pg/mL Total Protein 7.7 (6.3-8.2) g/dL Albumin 4.6 (3.5-5.0) g/dL 06/16/24 06/16/24 Range/Units 00:36 00:44 WBC (3.8-10.6) k/uL RBC (4.30-5.90) m/uL Hgb (13.0-17.5) gm/dL Hct (39.0-53.0) % MCV (80.0-100.0) fL MCH (25.0-35.0) pg MCHC (31.0-37.0) g/dL RDW (11.5-15.5) % Plt Count (150-450) k/uL MPV Neutrophils % % Lymphocytes % % Monocytes % % Eosinophils % % Basophils % % Neutrophils # (1.3-7.7) k/uL Lymphocytes # (1.0-4.8) k/uL Monocytes # (0-1.0) k/uL Eosinophils # (0-0.7) k/uL Basophils # (0-0.2) k/uL Anisocytosis Macrocytosis PT (10.0-12.5) sec INR (<1.2) APTT (22.0-30.0) sec Sodium (137-145) mmol/L Potassium (3.5-5.1) mmol/L Chloride (98-107) mmol/L Carbon Dioxide (22-30) mmol/L Anion Gap mmol/L BUN (9-20) mg/dL Creatinine (0.66-1.25) mg/dL Est GFR (CKD-EPI)AfAm (>60 ml/min/1.73 sqM) Est GFR (CKD-EPI)NonAf (>60 ml/min/1.73 sqM) Glucose (74-99) mg/dL POC Glucose (mg/dL) 165 H (70-110) mg/dL POC Glu Database Technician ID Donna Liu Calcium (8.4-10.2) mg/dL Magnesium (1.6-2.3) mg/dL Total Bilirubin (0.2-1.3) mg/dL AST (17-59) U/L ALT (4-49) U/L Alkaline Phosphatase (38-126) U/L Troponin I 0.088 H* (0.000-0.034) ng/mL NT-Pro-B Natriuret Pep pg/mL Total Protein (6.3-8.2) g/dL Albumin (3.5-5.0) g/dL - EKG Data -: EKG Interpreted by Me (EG is sinus 85 IA 176 QRS 108 QTc 428) - Radiology Data Radiology results: report reviewed (Chest x-ray is positive for CHF), image reviewed Critical Care Time Critical Care Time: Yes Total Critical Care Time: 31 Disposition Clinical Impression: CHF (congestive heart failure), Chronic renal failure, Vomiting, Fluid overload, Pleural effusion, Hypertensive emergency Disposition: ADMITTED IP TO THIS HOSP Condition: Fair Is patient prescribed a controlled substance at d/c from ED?: No Time of Disposition: 01:40
[2024-06-16] MEDS: ENALAPRILAT 1.25 MG/ML 1 ML VIAL IVP STA ×2 (00:40→03:14)
[2024-06-16 00:45] LABS: Glucose,Whole Blood 165 mg/dL (70-110)
--- NOTE | 2024-06-16 00:45 | XR ---
EXAMINATION TYPE: XR chest 1V portable DATE OF EXAM: 06/16/2024 COMPARISON: Prior chest x-ray March 08, 2024 HISTORY: CHF TECHNIQUE: Single frontal view of the chest is obtained. FINDINGS: There is persisting cardiomegaly with bilateral increased opacities. No pleural effusion o r pneumothorax seen bilaterally. Surgical clips in the right axilla are redemonstrated. The osseous structures are intact. IMPRESSION: Suspected CHF exacerbation. There is cardiomegaly with bilateral increased opacities diana picious for edema.
[2024-06-16 00:52] LABS: Anisocytosis Slight; Basophils % (A) 0 %; Eosinophils % (A) 1 %; HCT 36.9 % (39.0-53.0); HGB 11.6 gm/dL (13.0-17.5); Lymphocytes # (A) 0.2 k/uL (1.0-4.8); Lymphocytes % (A) 4 %; MCH 31.8 pg (25.0-35.0); MCHC 31.5 g/dL (31.0-37.0); MCV 100.9 fL (80.0-100.0); Macrocytosis Moderate; Mean Platelet Volume 11.4; Monocytes # (A) 0.4 k/uL (0-1.0); Monocytes % (A) 6 %; Neutrophils # (A) 5.4 k/uL (1.3-7.7); Neutrophils % (A) 89 %; Platelet Count 119 k/uL (150-450); RBC 3.66 m/uL (4.30-5.90); RDW 18.4 % (11.5-15.5); WBC 6.1 k/uL (3.8-10.6)
[2024-06-16] MEDS: HYDROmorphone 1 MG/ML 1 ML SYRINGE IVP STA (00:54)
[2024-06-16] MEDS: IPRATROPIUM-ALBUTEROL 3 ML NEB INHALATION STA (00:58)
[2024-06-16 01:02] LABS: ALT 19 U/L (4-49); AST 22 U/L (17-59); African American GFR (CKD) 7 (>60 ml/min/1.73 sqM); Albumin 4.6 g/dL (3.5-5.0); Alkaline Phosphatase 131 U/L (38-126); Anion Gap 14 mmol/L; Blood Urea Nitrogen 48 mg/dL (9-20); Calcium 9.7 mg/dL (8.4-10.2); Carbon Dioxide 23 mmol/L (22-30); Chloride 101 mmol/L (98-107); Glucose 170 mg/dL (74-99); Magnesium 2.3 mg/dL (1.6-2.3); Non-African American GFR(CKD) 6 (>60 ml/min/1.73 sqM); Potassium 5.3 mmol/L (3.5-5.1); Sodium 138 mmol/L (137-145); Total Bilirubin 1.2 mg/dL (0.2-1.3); Total Protein 7.7 g/dL (6.3-8.2)
[2024-06-16 01:31] LABS: NT-Pro-B-Type Natriuretic Pept 90100 pg/mL
[2024-06-16 01:35] LABS: INR 1.3 (<1.2); Partial Thromboplastin Time 28.3 sec (22.0-30.0); Prothrombin Time 13.4 sec (10.0-12.5)
[2024-06-16] MEDS: SODIUM CHLORIDE 0.9% 1,000 ML IV STA (02:17)
[2024-06-16] MEDS: LABETALOL 5 MG/ML VIAL MDV IVP STA (04:30)
[2024-06-16] MEDS: cloNIDine 0.2 MG/24HR PATCH TRANSDERM SCH (04:33)
[2024-06-16] MEDS ORDERED: HEPARIN SODIUM 1,000 UN/ML (10ML VL) IV PRN (05:08)
[2024-06-16] MEDS: HEPARIN SODIUM 1,000 UN/ML (10ML VL) IV ONE (05:15)
[2024-06-16] MEDS: HEPARIN SOD,PORK IN 0.45% NACL 25,000 UNIT in 0.45% NACL 1 250ML.BAG IV SCH (05:16)
[2024-06-16] MEDS: ASPIRIN 81 MG PO STA (05:19)
[2024-06-16 06:18] LABS: Glucose,Whole Blood 129 mg/dL (70-110)
[2024-06-16] MEDS: hydrALAZINE HCL 20 MG/ML 1 ML VIAL IVP STA (07:01)
[2024-06-16] MEDS: NIFEdipine XL 90 MG TAB.ER.24 PO SCH (08:30)
[2024-06-16] MEDS: FUROSEMIDE 80 MG TAB PO SCH (08:30)
[2024-06-16] MEDS: SACUBITRIL/VALSARTAN 24 MG-26 MG TABLET PO SCH (08:30)
[2024-06-16] MEDS: hydrALAZINE HCL 25 MG TAB PO SCH (08:30)
[2024-06-16] MEDS: ASPIRIN 325 MG TAB PO SCH (08:30)
[2024-06-16] MEDS: carvediloL 12.5 MG TAB PO SCH (08:35)
[2024-06-16] MEDS: cloNIDine 0.1 MG/24HR PATCH TRANSDERM SCH (09:22)
[2024-06-16] MEDS: HEPARIN SODIUM,PORCINE 5,000 UNIT/ML 1 ML VIAL SQ SCH (09:22)
[2024-06-16] MEDS ORDERED: DEXTROSE 50% SYRINGE 50 ML IVP PRN ×2 (09:53)
[2024-06-16] MEDS ORDERED: ONDANSETRON 4 MG/2 ML VIAL IVP PRN (10:04)
--- NOTE | 2024-06-16 10:39 | P.NPCON ---
History of Present Illness - Reason for Consult end stage renal disease - History of Present Illness Reason for consultation: End-stage renal disease History of present illness: Patient is a 43-year-old male seen in renal consultation for end-stage renal disease. Patient was seen and examined in the emergency room. He is maintained on hemodialysis on Friday schedule. Last dialysis was on Friday. Patient came to the hospital due to chest pain. Patient states he was resting he has today and suddenly developed chest discomfort around 5 PM. Patient initially thought it was acid reflux but states the chest pain did not improve and he also could not keep his blood pressure medications down. IV heparin has been stopped by cardiology. Denies chest pain now. No diarrhea. No vomiting today. Patient has longstanding history of diabetes. Also has history of coronary artery disease with stents placed in the past. No fever or chills. Vital signs are stable. Blood pressure high. General: No acute distress. HEENT: Head exam is unremarkable. LUNGS: No audible rhonchi or wheezes. HEART: Rate and Rhythm are regular. Cut the ABDOMEN: Nontender. EXTREMITITES: No edema. Past Medical History Past Medical History: Coronary Artery Disease (CAD), Heart Failure, Eye Disorder, GERD/Reflux, Hyperlipidemia, Hypertension, Myocardial Infarction ([place]), Renal Disease, Respiratory Disorder Additional Past Medical History / Comment(s): Pt recently admitted to [facility] on 05/09/20 with acute on chronic CHF/amyloidosis with generalized anasarca/acute on chronic kidney injury/acute anemia/advanced CAD/valvular disease/severe pulmonary htn/abnormal liver test/hyperlipidemia. Other hx: IDDM type II, pt states informed he had kidney disease in Feb, 2020 then ESRD diagnosed 05/09/20 with hemodialysis M/W/F,neuropathy bilateral feet, L foot ulcer with debridements, L eye blindness d/t diabetic retinopathy, ischemic cardiomyopathy, anasarca/lower leg edema. Last Myocardial Infarction Date:: 03/30/2018 History of Any Multi-Drug Resistant Organisms: None Reported Past Surgical History: Heart Catheterization With Stent Additional Past Surgical History / Comment(s): 05/17/20 R subclavian hemodialysis catheter, debridements L foot wound, R eye surgery-pt believes to remove cataract, SEAN fistula Additional Past Anesthesia/Blood Transfusion Reaction / Comment(s): During 3rd debridement L foot ulcer Date of Last Stent Placement:: 03/31/2018 Past Psychological History: No Psychological Hx Reported Smoking Status: Never smoker Past Alcohol Use History: None Reported Past Drug Use History: None Reported - Past Family History Mother Family Medical History: Diabetes Mellitus, Hyperlipidemia, Hypertension Father Family Medical History: Diabetes Mellitus, Hypertension Medications and Allergies Home Medications Medication Instructions Recorded Confirmed Type Insulin Glargine,Hum.rec.anlog 10 unit SQ HS 05/09/20 06/16/24 History [Lantus Solostar Pen] Nitroglycerin Sl Tabs [Nitrostat] 0.4 mg SL Q5M PRN 05/09/20 06/16/24 History Furosemide [Lasix] 80 mg PO BID PRN 11/03/20 06/16/24 History Losartan Potassium [Cozaar] 100 mg PO DAILY 11/03/20 06/16/24 History carvediloL [Coreg] 50 mg PO BID 11/03/20 06/16/24 History NIFEdipine XL [Procardia XL] 90 mg PO HS 03/08/24 06/16/24 History Sacubitril/Valsartan [Entresto 24 1 tab PO BID 06/16/24 06/16/24 History mg-26 mg Tablet] hydrALAZINE HCL [Apresoline] 50 mg PO TID-W/MEALS 06/16/24 06/16/24 History Allergies Allergy/AdvReac Type Severity Reaction Status Date / Time nickel Allergy Rash/Hives Verified 06/16/24 08:15 Physical Exam Vitals: Vital Signs Temp Pulse Resp BP Pulse Ox 06/16/24 09:00 71 16 184/91 99 06/16/24 07:29 70 16 196/102 99 06/16/24 06:14 71 15 200/102 100 06/16/24 04:33 72 19 193/98 100 06/16/24 04:22 73 21 207/112 100 06/16/24 04:21 13 202/113 98 06/16/24 03:45 208/115 06/16/24 03:30 204/111 06/16/24 03:18 73 13 100 06/16/24 03:11 72 13 187/104 98 06/16/24 02:39 76 18 190/102 97 06/16/24 02:00 74 18 190/98 96 06/16/24 01:41 76 20 172/92 97 06/16/24 01:36 78 18 177/90 96 06/16/24 01:09 79 06/16/24 01:00 80 18 196/96 96 06/16/24 00:59 81 06/16/24 00:34 83 20 218/108 95 06/16/24 00:19 98.2 F 83 23 212/97 92 L Intake and Output 06/15/24 06/16/24 06/16/24 22:59 06:59 14:59 Other: Weight 79.379 kg Results - Lab Results Most recent lab results Calcium 9.7 mg/dL (8.4-10.2) 06/16/24 00:36 Magnesium 2.3 mg/dL (1.6-2.3) 06/16/24 00:36 06/16/24 00:36 06/16/24 00:36 Assessment and Plan Plan: Assessment: 1. End-stage renal disease maintained on hemodialysis on Friday schedule. 2. Hypertension with chronic kidney disease. 3. Diabetes mellitus. 4. Chronic kidney disease mineral bone disease. Plan: Hemodialysis today. Home antihypertensives resumed. Add as needed hydralazine. Follow-up echocardiogram. Thank you for the consultation. I will continue to follow the patient with you during his hospital stay.
[2024-06-16] MEDS: hydrALAZINE HCL 20 MG/ML 1 ML VIAL IVP PRN (11:25)
--- NOTE | 2024-06-16 12:06 | P.CRDCN ---
History of Present Illness Consult date: 06/16/24 ( ) Consult reason: congestive heart failure History of present illness: This is a 43-year-old male patient of Dr. Martines with past medical history of Dr. Martines with past medical history of diabetes, hypertension, dyslipidemia, end-stage renal disease on hemodialysis Friday, Friday and Friday. Patient was last seen in the office on 05/27 for blood pressure check with no change in medications at that time. Patient states he presented to the hospital as he was not feeling well with generalized aches body aches, shortness of breath and generalized weakness. He also states he started vomiting and has a headache. Patient has been started on a heparin drip. Blood pressure on presentation was 218/108. It is currently 196/102 with heart rate of 70, pulse ox 99% on room air. Patient is scheduled for hemodialysis today. EKG: Sinus rhythm with nonspecific changes. Chest x-ray: Suspicious for CHF exacerbation with cardiomegaly and bilateral increased opacity suspicious for edema. Laboratory studies: WBC 6.1, hemoglobin 9.6, platelet count 119. INR 1.3. BUN 48 creatinine 10.0, potassium 5.3. Glucose 170. Troponins 0.088, 0.246, 0.447. proBNP 90,100. Home cardiac medications: Coreg 50 mg twice daily, Lasix 80 mg twice daily as needed, hydralazine 50 mg 3 times daily, losartan 100 mg daily--this has been st opped but on his home list, Entresto 24-26 mg 1 tablet twice daily Echocardiogram performed on 03/08/2024 revealed EF 45 to 50%, global hypokinesia, severe left ventricular wall thickness, moderate TR, small pericardial effusion. RVSP 62 mmHg. Lexiscan Cardiolite stress test was performed on 04/08/2024 which revealed EF of 45% and no evidence of reversible ischemia. Review Of Systems: At the time of my exam: CONSTITUTIONAL: Denies fever or chills. Reports generalized fatigue HEENT: Denies blurred vision, vision changes, or eye pain. Denies hemoptysis CARDIOVASCULAR: Reports chest pain. Denies orthopnea. Denies PND. Denies palpitations RESPIRATORY: Denies shortness of breath. GASTROINTESTINAL: Reports abdominal pain. Reports nausea or vomiting. HEMATOLOGIC: Denies bleeding disorders. GENITOURINARY: Denies any blood in urine. SKIN: Denies puritis. Denies rash. Physical examination: Gen: This is a 43-year-old male in no acute distress VS: reviewed HEENT: Head is atraumatic, normocephalic. Pupils equal, round. Sclerae is anicteric. NECK: Supple. No JVD. LUNGS: Clear to auscultation. No wheezes or rhonchi. No intercostal retractions. HEART: Regular rate and rhythm. Systolic murmur at the apex. ABDOMEN: Soft No tenderness. EXTREMITIES: Mild bilateral pedal edema. No calf tenderness. NEUROLOGICAL: Patient is awake, alert and oriented x3. Assessment: Elevated troponin secondary to end-stage renal disease Severe uncontrolled hypertension Chest pain most likely secondary to uncontrolled hypertension and/or musculoskeletal pain from vomiting Acute on chronic diastolic heart failure Diabetes Dyslipidemia End-stage renal disease on hemodialysis Plan: Resume patient's home cardiac medications Discontinue heparin drip Avoid use of MARK inhibitors as patient is on Entresto Obtain 2-D echocardiogram and Doppler study to assess cardiac structure and function Further recommendations to follow based upon clinical course Thank you kindly for this consultation. Nurse practitioner note has been reviewed, I agree with documented findings and plan of care. Patient was seen and examined. Past Medical History Past Medical History: Coronary Artery Disease (CAD), Heart Failure, Eye Disorder, GERD/Reflux, Hyperlipidemia, Hypertension, Myocardial Infarction ([place]), Renal Disease, Respiratory Disorder Additional Past Medical History / Comment(s): Pt recently admitted to [facility] on 05/09/20 with acute on chronic CHF/amyloidosis with generalized anasarca/acute on chronic kidney injury/acute anemia/advanced CAD/valvular disease/severe pulmonary htn/abnormal liver test/hyperlipidemia. Other hx: IDDM type II, pt states informed he had kidney disease in Feb, 2020 then ESRD diagnosed 05/09/20 with hemodialysis M/W/F,neuropathy bilateral feet, L foot ulcer with debridements, L eye blindness d/t diabetic retinopathy, ischemic cardiomyopathy, anasarca/lower leg edema. Last Myocardial Infarction Date:: 03/30/2018 History of Any Multi-Drug Resistant Organisms: None Reported Past Surgical History: Heart Catheterization With Stent Additional Past Surgical History / Comment(s): 05/17/20 R subclavian hemodialysis catheter, debridements L foot wound, R eye surgery-pt believes to remove cataract, SEAN fistula Additional Past Anesthesia/Blood Transfusion Reaction / Comment(s): During 3rd debridement L foot ulcer Date of Last Stent Placement:: 03/31/2018 Past Psychological History: No Psychological Hx Reported Smoking Status: Never smoker Past Alcohol Use History: None Reported Past Drug Use History: None Reported - Past Family History Mother Family Medical History: Diabetes Mellitus, Hyperlipidemia, Hypertension Father Family Medical History: Diabetes Mellitus, Hypertension Medications and Allergies Home Medications Medication Instructions Recorded Confirmed Type Insulin Glargine,Hum.rec.anlog 10 unit SQ HS 05/09/20 06/16/24 History [Lantus Solostar Pen] Nitroglycerin Sl Tabs [Nitrostat] 0.4 mg SL Q5M PRN 05/09/20 06/16/24 History Furosemide [Lasix] 80 mg PO BID PRN 11/03/20 06/16/24 History Losartan Potassium [Cozaar] 100 mg PO DAILY 11/03/20 06/16/24 History carvediloL [Coreg] 50 mg PO BID 11/03/20 06/16/24 History NIFEdipine XL [Procardia XL] 90 mg PO HS 03/08/24 06/16/24 History Sacubitril/Valsartan [Entresto 24 1 tab PO BID 06/16/24 06/16/24 History mg-26 mg Tablet] hydrALAZINE HCL [Apresoline] 50 mg PO TID-W/MEALS 06/16/24 06/16/24 History Allergies Allergy/AdvReac Type Severity Reaction Status Date / Time nickel Allergy Rash/Hives Verified 06/16/24 08:15 Physical Exam Vitals: Vital Signs Temp Pulse Resp BP Pulse Ox 06/16/24 07:29 70 16 196/102 99 06/16/24 06:14 71 15 200/102 100 06/16/24 04:33 72 19 193/98 100 06/16/24 04:22 73 21 207/112 100 06/16/24 04:21 13 202/113 98 06/16/24 03:45 208/115 06/16/24 03:30 204/111 06/16/24 03:18 73 13 100 06/16/24 03:11 72 13 187/104 98 06/16/24 02:39 76 18 190/102 97 06/16/24 02:00 74 18 190/98 96 06/16/24 01:41 76 20 172/92 97 06/16/24 01:36 78 18 177/90 96 06/16/24 01:09 79 06/16/24 01:00 80 18 196/96 96 06/16/24 00:59 81 06/16/24 00:34 83 20 218/108 95 06/16/24 00:19 98.2 F 83 23 212/97 92 L Intake and Output 06/15/24 06/16/24 06/16/24 22:59 06:59 14:59 Other: Weight 79.379 kg Results 06/16/24 00:36 06/16/24 00:36 Cardiac Enzymes 06/16/24 06/16/24 06/16/24 Range/Units 00:36 00:36 03:36 AST 22 (17-59) U/L Troponin I 0.088 H* 0.246 H* (0.000-0.034) ng/mL 06/16/24 Range/Units 06:09 AST (17-59) U/L Troponin I 0.447 H* (0.000-0.034) ng/mL Coagulation 06/16/24 Range/Units 00:36 PT 13.4 H (10.0-12.5) sec APTT 28.3 (22.0-30.0) sec CBC 06/16/24 Range/Units 00:36 WBC 6.1 (3.8-10.6) k/uL RBC 3.66 L (4.30-5.90) m/uL Hgb 11.6 L (13.0-17.5) gm/dL Hct 36.9 L (39.0-53.0) % Plt Count 119 L (150-450) k/uL Comprehensive Metabolic Panel 06/16/24 Range/Units 00:36 Sodium 138 (137-145) mmol/L Potassium 5.3 H (3.5-5.1) mmol/L Chloride 101 (98-107) mmol/L Carbon Dioxide 23 (22-30) mmol/L BUN 48 H (9-20) mg/dL Creatinine 10.04 H* (0.66-1.25) mg/dL Glucose 170 H (74-99) mg/dL Calcium 9.7 (8.4-10.2) mg/dL AST 22 (17-59) U/L ALT 19 (4-49) U/L Alkaline Phosphatase 131 H (38-126) U/L Total Protein 7.7 (6.3-8.2) g/dL Albumin 4.6 (3.5-5.0) g/dL Current Medications Generic Name Dose Route Start Last Admin Trade Name Freq PRN Reason Stop Dose Admin Aspirin 325 mg 06/16/24 09:00 Aspirin 325 Mg Tab PO DAILY KATHERINE Clonidine HCl 1 patch 06/16/24 04:30 06/16/24 04:33 Clonidine 0.2 Mg/24hr Patch TRANSDERM 1 patch Q7D KATHERINE Administration Heparin Sodium (Porcine) 0 unit 06/16/24 05:08 Heparin Sodium 1,000 Un/Ml (10ml Vl) IV PER PROTOCOL PRN Low PTT Protocol Heparin Sodium/Sodium Chloride 250 mls @ 9.525 mls/hr 06/16/24 05:15 06/16/24 05:16 25,000 unit/ Sodium Chloride IV 12 units/kg/hr .Q24H KATHERINE 9.525 mls/hr Administration Protocol 12 UNITS/KG/HR Intake and Output 06/15/24 06/16/24 06/16/24 22:59 06:59 14:59 Other: Weight 79.379 kg 06/16/24 00:36 06/16/24 00:36
[2024-06-16 13:28] LABS: Glucose,Whole Blood 91 mg/dL (70-110)
[2024-06-16] MEDS: INSULIN ASPART (NovoLOG) 100 UNIT/ML VIAL SQ SCH (14:15)
--- NOTE | 2024-06-16 16:11 | P.HPIM ---
History of Present Illness H&P Date: 06/16/24 This is a 43-year-old male with medical history significant for congestive heart failure with ischemic cardiomyopathy, end-stage renal disease maintained on hemodialysis, diabetic neuropathy and diabetes mellitus type 2, coronary artery disease with prior PCI. Patient has a known ejection fraction of 45 to 50%. He comes into the hospital with a 1 day history of shortness of breath nausea vomiting. At this time he is not currently having any further reports of vomiting and not feeling nauseous at this time. He is maintained on an outpatient hemodialysis schedule every Friday he states that he has not missed any dialysis and has been compliant with all of his blood pressure medications. He was found to be significantly hypertensive with a blood pressure of 212/97 on admission. He follows with Dr. Galindo in the medical office as well as Dr. Marcum. Patient has been admitted to the hospital for volume overload and hypertensive urgency he is currently evaluated in the ER undergoing hemodialysis. He remains hypertensive cardiology is on board and adjusting medications. REVIEW OF SYSTEMS: CONSTITUTIONAL: No fever, no malaise, Reports fatigue HEENT: No recent visual problems or hearing problems. Denied any sore throat. CARDIOVASCULAR: No chest pain, orthopnea, PND, no palpitations, no syncope. PULMONARY: No shortness of breath, no cough, no hemoptysis. GASTROINTESTINAL: No diarrhea, Reports nausea, no vomiting, no abdominal pain. NEUROLOGICAL: No headaches, no weakness, no numbness. HEMATOLOGICAL: Denies any bleeding or petechiae. GENITOURINARY: Denies any burning micturition, frequency, or urgency. MUSCULOSKELETAL/RHEUMATOLOGICAL: Denies any joint pain, swelling, or any muscle pain. ENDOCRINE: Denies any polyuria or polydipsia. The rest of the 14-point review of systems is negative PHYSICAL EXAMINATION: GENERAL: The patient is alert and oriented x3, not in any acute distress. Well developed, well nourished. HEENT: Pupils are round and equally reacting to light. EOMI. No scleral icterus. No conjunctival pallor. Normocephalic, atraumatic. No pharyngeal erythema. No thyromegaly. Left eye cataracts. CARDIOVASCULAR: S1 and S2 present. No murmurs, rubs, or gallops. PULMONARY: Chest is clear to auscultation, no wheezing or crackles. ABDOMEN: Soft, nontender, nondistended, normoactive bowel sounds. No palpable organomegaly. MUSCULOSKELETAL: No joint swelling or deformity. EXTREMITIES: No cyanosis, clubbing, or pedal edema. NEUROLOGICAL: Gross neurological examination did not reveal any focal deficits. Diffuse weakness SKIN: No rashes. Assessment End stage renal disease maintained on MWF hemodialysis schedule Shortness of breath due to volume overload Hypertension with hypertensive urgency on admission Nausea/vomiting likely due to increased creatinine and hypertension Chest pain most likely secondary to uncontrolled hypertension Coronary artery disease with prior PCI. Ischemic cardiomyopathy EF 45-50% Acute on chronic diastolic heart failure Hyperkalemia due to the renal dysfunction Troponin leak from ESRD Diabetes mellitus type 2 Anemia of chronic disease Gastroesophageal reflux disease Diabetic peripheral neuropathy Dyslipidemia GI prophylaxis Plan Nephrology consultation and hemodialysis per nephrology Cardiology consultation Discontinue losartan and resume entresto patient should not be on both of these medications. Echocardiogram ordered and pending Resume home medications and continue PRN IV hydralazine Supportive care with IV zofran Repeat blood work in the AM The impression and plan of care has been dictated by Taty Boswell Nurse Practitioner as directed. Dr. Myah MD I have performed a history and physical examination and medical decision making of this patient, discussed the same with the dictator, and agree with the dictators assessment and plan as written, documented as a scribe. Based on total visit time, I have performed more than 50% of this visit. Past Medical History Past Medical History: Coronary Artery Disease (CAD), Heart Failure, Eye Disorder, GERD/Reflux, Hyperlipidemia, Hypertension, Myocardial Infarction ([place]), Renal Disease, Respiratory Disorder Additional Past Medical History / Comment(s): Pt recently admitted to [facility] on 05/09/20 with acute on chronic CHF/amyloidosis with generalized anasarca/acute on chronic kidney injury/acute anemia/advanced CAD/valvular disease/severe pulm onary htn/abnormal liver test/hyperlipidemia. Other hx: IDDM type II, pt states informed he had kidney disease in Feb, 2020 then ESRD diagnosed 05/09/20 with hemodialysis M/W/F,neuropathy bilateral feet, L foot ulcer with debridements, L eye blindness d/t diabetic retinopathy, ischemic cardiomyopathy, anasarca/lower leg edema. Last Myocardial Infarction Date:: 03/30/2018 History of Any Multi-Drug Resistant Organisms: None Reported Past Surgical History: Heart Catheterization With Stent Additional Past Surgical History / Comment(s): 05/17/20 R subclavian hemodialysis catheter, debridements L foot wound, R eye surgery-pt believes to remove cataract, SEAN fistula Additional Past Anesthesia/Blood Transfusion Reaction / Comment(s): During 3rd debridement L foot ulcer Date of Last Stent Placement:: 03/31/2018 Past Psychological History: No Psychological Hx Reported Smoking Status: Never smoker Past Alcohol Use History: None Reported Past Drug Use History: None Reported - Past Family History Mother Family Medical History: Diabetes Mellitus, Hyperlipidemia, Hypertension Father Family Medical History: Diabetes Mellitus, Hypertension Medications and Allergies Home Medications Medication Instructions Recorded Confirmed Type Insulin Glargine,Hum.rec.anlog 10 unit SQ HS 05/09/20 06/16/24 History [Lantus Solostar Pen] Nitroglycerin Sl Tabs [Nitrostat] 0.4 mg SL Q5M PRN 05/09/20 06/16/24 History Furosemide [Lasix] 80 mg PO BID PRN 11/03/20 06/16/24 History Losartan Potassium [Cozaar] 100 mg PO DAILY 11/03/20 06/16/24 History carvediloL [Coreg] 50 mg PO BID 11/03/20 06/16/24 History NIFEdipine XL [Procardia XL] 90 mg PO HS 03/08/24 06/16/24 History Sacubitril/Valsartan [Entresto 24 1 tab PO BID 06/16/24 06/16/24 History mg-26 mg Tablet] hydrALAZINE HCL [Apresoline] 50 mg PO TID-W/MEALS 06/16/24 06/16/24 History Allergies Allergy/AdvReac Type Severity Reaction Status Date / Time nickel Allergy Rash/Hives Verified 06/16/24 08:15 Physical Exam Vitals: Vital Signs Temp Pulse Resp BP Pulse Ox 06/16/24 09:00 71 16 184/91 99 06/16/24 07:29 70 16 196/102 99 06/16/24 06:14 71 15 200/102 100 06/16/24 04:33 72 19 193/98 100 06/16/24 04:22 73 21 207/112 100 06/16/24 04:21 13 202/113 98 06/16/24 03:45 208/115 06/16/24 03:30 204/111 06/16/24 03:18 73 13 100 06/16/24 03:11 72 13 187/104 98 06/16/24 02:39 76 18 190/102 97 06/16/24 02:00 74 18 190/98 96 06/16/24 01:41 76 20 172/92 97 06/16/24 01:36 78 18 177/90 96 06/16/24 01:09 79 06/16/24 01:00 80 18 196/96 96 06/16/24 00:59 81 06/16/24 00:34 83 20 218/108 95 06/16/24 00:19 98.2 F 83 23 212/97 92 L Intake and Output 06/15/24 06/16/24 06/16/24 22:59 06:59 14:59 Other: Weight 79.379 kg Results CBC & Chem 7: 06/16/24 00:36 06/16/24 00:36 Labs: Abnormal Lab Results - Last 24 Hours (Table) 06/16/24 06/16/24 06/16/24 Range/Units 00:36 00:36 00:36 RBC 3.66 L (4.30-5.90) m/uL Hgb 11.6 L (13.0-17.5) gm/dL Hct 36.9 L (39.0-53.0) % MCV 100.9 H (80.0-100.0) fL RDW 18.4 H (11.5-15.5) % Plt Count 119 L (150-450) k/uL Lymphocytes # 0.2 L (1.0-4.8) k/uL PT 13.4 H (10.0-12.5) sec INR 1.3 H (<1.2) Potassium 5.3 H (3.5-5.1) mmol/L BUN 48 H (9-20) mg/dL Creatinine 10.04 H* (0.66-1.25) mg/dL Glucose 170 H (74-99) mg/dL POC Glucose (mg/dL) (70-110) mg/dL Alkaline Phosphatase 131 H (38-126) U/L Troponin I (0.000-0.034) ng/mL 06/16/24 06/16/24 06/16/24 Range/Units 00:36 00:44 03:36 RBC (4.30-5.90) m/uL Hgb (13.0-17.5) gm/dL Hct (39.0-53.0) % MCV (80.0-100.0) fL RDW (11.5-15.5) % Plt Count (150-450) k/uL Lymphocytes # (1.0-4.8) k/uL PT (10.0-12.5) sec INR (<1.2) Potassium (3.5-5.1) mmol/L BUN (9-20) mg/dL Creatinine (0.66-1.25) mg/dL Glucose (74-99) mg/dL POC Glucose (mg/dL) 165 H (70-110) mg/dL Alkaline Phosphatase (38-126) U/L Troponin I 0.088 H* 0.246 H* (0.000-0.034) ng/mL 06/16/24 06/16/24 Range/Units 06:09 06:17 RBC (4.30-5.90) m/uL Hgb (13.0-17.5) gm/dL Hct (39.0-53.0) % MCV (80.0-100.0) fL RDW (11.5-15.5) % Plt Count (150-450) k/uL Lymphocytes # (1.0-4.8) k/uL PT (10.0-12.5) sec INR (<1.2) Potassium (3.5-5.1) mmol/L BUN (9-20) mg/dL Creatinine (0.66-1.25) mg/dL Glucose (74-99) mg/dL POC Glucose (mg/dL) 129 H (70-110) mg/dL Alkaline Phosphatase (38-126) U/L Troponin I 0.447 H* (0.000-0.034) ng/mL Assessment and Plan Time with Patient: Greater than 30
[2024-06-16 18:03] LABS: Glucose,Whole Blood 135 mg/dL (70-110)
[2024-06-16] MEDS ORDERED: HEPARIN SODIUM,PORCINE 5,000 UNIT/ML 1 ML VIAL ONE (21:00)
[2024-06-16] MEDS ORDERED: INSULIN DETEMIR (LEVEMIR) 100 UNIT/ML SYR SQ ONE (21:00)
[2024-06-16] MEDS ORDERED: hydrALAZINE HCL 25 MG TAB ONE (21:00)
[2024-06-16] MEDS ORDERED: SACUBITRIL/VALSARTAN 24 MG-26 MG TABLET PO ONE (21:00)
[2024-06-16 21:37] LABS: Glucose,Whole Blood 135 mg/dL (70-110)
[2024-06-17] MEDS ORDERED: ACETAMINOPHEN TAB 325 MG TAB PO PRN
[2024-06-17] MEDS: INSULIN DETEMIR (LEVEMIR) 100 UNIT/ML SYR SQ SCH (05:01)
[2024-06-17 06:11] VITALS: RESP 16
[2024-06-17 06:22] LABS: African American GFR (CKD) 8 (>60 ml/min/1.73 sqM); Anion Gap 7 mmol/L; Blood Urea Nitrogen 50 mg/dL (9-20); Calcium 8.9 mg/dL (8.4-10.2); Carbon Dioxide 30 mmol/L (22-30); Chloride 98 mmol/L (98-107); Glucose 77 mg/dL (74-99); Magnesium 2.3 mg/dL (1.6-2.3); Non-African American GFR(CKD) 7 (>60 ml/min/1.73 sqM); Potassium 4.6 mmol/L (3.5-5.1); Sodium 135 mmol/L (137-145)
[2024-06-17] MEDS: ASPIRIN 81 MG PO SCH (08:49)
[2024-06-17 08:54] VITALS: TEMP 98.6
[2024-06-17 09:34] LABS: Anisocytosis Slight; Basophils % (A) 1 %; Eosinophils % (A) 0 %; HCT 36.6 % (39.0-53.0); HGB 11.7 gm/dL (13.0-17.5); Lymphocytes # (A) 0.8 k/uL (1.0-4.8); Lymphocytes % (A) 14 %; MCH 31.4 pg (25.0-35.0); MCHC 31.9 g/dL (31.0-37.0); MCV 98.5 fL (80.0-100.0); Macrocytosis Slight; Mean Platelet Volume 11.9; Monocytes # (A) 0.4 k/uL (0-1.0); Monocytes % (A) 8 %; Neutrophils % (A) 76 %; Platelet Count 104 k/uL (150-450); RBC 3.71 m/uL (4.30-5.90); RDW 18.1 % (11.5-15.5); WBC 5.3 k/uL (3.8-10.6)
--- NOTE | 2024-06-17 10:03 | P.PN ---
Subjective Patient is seen in follow-up for end-stage renal disease. Denies chest pain or shortness of breath. No problems with dialysis yesterday. Vital signs are stable. General: No acute distress. HEENT: Head exam is unremarkable. LUNGS: No audible rhonchi or wheezes. HEART: Rate and Rhythm are regular. ABDOMEN: Nontender. EXTREMITITES: No edema. Objective - Vital Signs Vital signs: Vital Signs Temp 98.6 F 06/17/24 08:00 Pulse 68 06/17/24 08:00 Resp 16 06/17/24 08:00 BP 171/82 06/17/24 08:00 Pulse Ox 97 06/17/24 08:00 FiO2 Intake & Output 06/16/24 06/17/24 06/17/24 18:59 06:59 18:59 Intake Total 400 356 Output Total 8200 Balance -7800 356 Intake: Oral 356 Hemodialysis 400 Output: Hemodialysis 3000 Hemodialysis Net Amount 2600 Other 2600 Other: # Voids 1 - Labs CBC & Chem 7: 06/16/24 00:36 06/17/24 05:41 Labs: Abnormal Lab Results - Last 24 Hours (Table) 06/16/24 06/16/24 06/17/24 Range/Units 17:59 21:35 05:41 Sodium 135 L (137-145) mmol/L BUN 50 H (9-20) mg/dL Creatinine 8.30 H* (0.66-1.25) mg/dL POC Glucose (mg/dL) 135 H 135 H (70-110) mg/dL Assessment and Plan Plan: Assessment: 1. End-stage renal disease maintained on hemodialysis on Friday schedule. 2. Hypertension with chronic kidney disease. 3. Diabetes mellitus. 4. Chronic kidney disease mineral bone disease. Plan: Hemodialysis tomorrow. Increase dose of hydralazine to 50 mg. Follow-up echocardiogram.
[2024-06-17 10:50] LABS: ALT 100 U/L (4-49); AST 130 U/L (17-59); African American GFR (CKD) 9 (>60 ml/min/1.73 sqM); Albumin 4.2 g/dL (3.5-5.0); Alkaline Phosphatase 80 U/L (38-126); Anion Gap 9 mmol/L; Blood Urea Nitrogen 43 mg/dL (9-20); Calcium 9.1 mg/dL (8.4-10.2); Carbon Dioxide 29 mmol/L (22-30); Chloride 97 mmol/L (98-107); Glucose 120 mg/dL (74-99); Non-African American GFR(CKD) 7 (>60 ml/min/1.73 sqM); Potassium 4.4 mmol/L (3.5-5.1); Sodium 135 mmol/L (137-145); Total Bilirubin 0.9 mg/dL (0.2-1.3); Total Protein 7.3 g/dL (6.3-8.2)
[2024-06-17 11:17] LABS: Glucose,Whole Blood 91 mg/dL (70-110)
[2024-06-17 11:36] LABS: Crenated RBC Present; Target Cells Present
[2024-06-17 11:37] LABS: Large Platelets Present
[2024-06-17 11:38] LABS: RBC Fragments Present
[2024-06-17 12:24] VITALS: BP 165/72; PULSE 71
--- NOTE | 2024-06-17 13:13 | P.PN ---
Subjective Progress Note Date: 06/17/24 Consult reason: congestive heart failure History of present illness: This is a 43-year-old male patient of Dr. Martines with past medical history of Dr. Martines with past medical history of diabetes, hypertension, dyslipidemia, end-stage renal disease on hemodialysis Friday, Friday and Friday. Patient was last seen in the office on 05/27 for blood pressure check with no change in medications at that time. Patient states he presented to the hospital as he was not feeling well with generalized aches body aches, shortness of breath and generalized weakness. He also states he started vomiting and has a headache. Patient has been started on a heparin drip. Blood pressure on presentation was 218/108. It is currently 196/102 with heart rate of 70, pulse ox 99% on room air. Patient is scheduled for hemodialysis today. EKG: Sinus rhythm with nonspecific changes. Chest x-ray: Suspicious for CHF exacerbation with cardiomegaly and bilateral inc reased opacity suspicious for edema. Laboratory studies: WBC 6.1, hemoglobin 9.6, platelet count 119. INR 1.3. BUN 48 creatinine 10.0, potassium 5.3. Glucose 170. Troponins 0.088, 0.246, 0.447. proBNP 90,100. Home cardiac medications: Coreg 50 mg twice daily, Lasix 80 mg twice daily as needed, hydralazine 50 mg 3 times daily, losartan 100 mg daily--this has been stopped but on his home list, Entresto 24-26 mg 1 tablet twice daily Echocardiogram performed on 03/08/2024 revealed EF 45 to 50%, global hypokinesia, severe left ventricular wall thickness, moderate TR, small pericardial effusion. RVSP 62 mmHg. Lexiscan Cardiolite stress test was performed on 04/08/2024 which revealed EF of 45% and no evidence of reversible ischemia. 06/17 Patient is seen today in follow-up on the cardiac stepdown unit. Yesterday, Catapres was increased to 0.3 mg, patient was resumed back on his home blood pressure medications. He has run a fever this morning, blood pressure is better controlled today. 165/72, heart rate 71, pulse ox 96% on room air. Echocardiogram has been obtained but report is pending. Physical examination: Gen: This is a 43-year-old male in no acute distress VS: reviewed HEENT: Head is atraumatic, normocephalic. Pupils equal, round. Sclerae is anicteric. NECK: Supple. No JVD. LUNGS: Clear to auscultation. No wheezes or rhonchi. No intercostal retractions. HEART: Regular rate and rhythm. Systolic murmur at the apex. ABDOMEN: Soft No tenderness. EXTREMITIES: Mild bilateral pedal edema. No calf tenderness. NEUROLOGICAL: Patient is awake, alert and oriented x3. Assessment: Elevated troponin secondary to end-stage renal disease Severe uncontrolled hypertension Chest pain most likely secondary to uncontrolled hypertension and/or musculoskeletal pain from vomiting Acute on chronic diastolic heart failure Febrile illness Vomiting Diabetes Dyslipidemia End-stage renal disease on hemodialysis Plan: Continue patient's home cardiac medications Avoid use of MARK inhibitors as patient is on Entresto Obtain 2-D echocardiogram and Doppler report Further recommendations to follow based upon clinical course Nurse practitioner note has been reviewed, I agree with documented findings and plan of care. Patient was seen and examined. Objective - Vital Signs Vital signs: Vital Signs Temp 99.2 F 06/17/24 04:00 Pulse 70 06/17/24 04:00 Resp 16 06/17/24 04:00 BP 144/67 06/17/24 04:00 Pulse Ox 95 06/17/24 04:00 FiO2 Intake & Output 06/16/24 06/17/24 06/17/24 18:59 06:59 18:59 Intake Total 400 Output Total 8200 Balance -7800 Intake: Hemodialysis 400 Output: Hemodialysis 3000 Hemodialysis Net Amount 2600 Other 2600 Other: # Voids 1 - Labs CBC & Chem 7: 06/17/24 02:39 06/17/24 05:41 Labs: Abnormal Lab Results - Last 24 Hours (Table) 06/16/24 06/16/24 06/17/24 Range/Units 17:59 21:35 05:41 Sodium 135 L (137-145) mmol/L BUN 50 H (9-20) mg/dL Creatinine 8.30 H* (0.66-1.25) mg/dL POC Glucose (mg/dL) 135 H 135 H (70-110) mg/dL
[2024-06-17] MEDS ORDERED: LOSARTAN 50 MG TAB PO SCH (13:15)
--- NOTE | 2024-06-17 13:24 | CA ---
Transthoracic Echo Report Name: Reggie Aceves Age: 43 Gender: M : 1980 Exam Date: 06/16/2024 14:43 Exam Location: [facility] Ht (in): 72 Wt (lb): 175 Ordering Physician: Filipe Dubon DO Attending/Referring Phys: [id number], Ling Churn Operator Margarine Sangeeta Collier RDCS Procedure CPT: Indications: Heart failure Cardiac Hx: Technical Quality: Good Contrast 1: Total Dose (mL): Contrast 2: Total Dose (mL): MEASUREMENTS (Male / Female) Normal Values 2D ECHO LV Diastolic Diameter PLAX 5.0 cm 4.2 - 5.9 / 3.9 - 5.3 cm LV Systolic Diameter PLAX 3.7 cm IVS Diastolic Thickness 1.5 cm 0.6 - 1.0 / 0.6 - 0.9 cm LVPW Diastolic Thickness 1.6 cm 0.6 - 1.0 / 0.6 - 0.9 cm LV Relative Wall Thickness 0.6 RV Internal Dim ED PLAX 2.9 cm LA Systolic Diameter LX 4.5 cm 3.0 - 4.0 / 2.7 - 3.8 cm LV Diastolic Volume MOD BP 104.6 cm??? 67 - 155 / 56 - 104 cm??? LV Systolic Volume MOD BP 54.5 cm??? - 58 / 19 - 49 cm??? LV Ejection Fraction MOD BP 47.9 % >= 55 % LV Cardiac Index MOD BP 2116.3 cm???/min???m??? LV Diastolic Volume MOD 4C 97.8 cm??? LV Systolic Volume MOD 4C 48.1 cm??? LV Ejection Fraction MOD 4C 50.8 % LV Cardiac Index MOD 4C 2099.7 cm???/min???m??? LV Diastolic Length 4C 9.0 cm LV Systolic Length 4C 8.6 cm LV Diastolic Volume MOD 2C 113.4 cm??? LV Systolic Volume MOD 2C 55.0 cm??? LV Ejection Fraction MOD 2C 51.5 % LV Cardiac Index MOD 2C 2468.0 cm???/min???m??? LV Diastolic Length 2C 9.1 cm LV Systolic Length 2C 7.6 cm LA Volume 122.4 cm??? 18 - 58 / 22 - 52 cm??? LA Volume Index 60.9 cm???/m??? 16 - 28 cm???/m??? M-MODE Aortic Root Diameter MM 3.1 cm LA Systolic Diameter MM 4.5 cm LA Ao Ratio MM 1.5 AV Cusp Separation MM 2.2 cm FINDINGS Left Ventricle Left ventricular ejection fraction is estimated at 45-50%. Severely increased left ventricular wall thickness. Mildly decreased left ventricular ejection fraction. No obvious regional wall motion abnormalities. Right Ventricle Mild right ventricular dilatation. Right Atrium Severe right atrial dilatation. Left Atrium Mildly increased left atrial diameter. Severely increased left atrial volume. Moderately increased left atrial area. Mitral Valve Aortic Valve Tricuspid Valve Pulmonic Valve Pericardium No pericardial or pleural effusion. Aorta Normal size aortic root and proximal ascending aorta. CONCLUSIONS Left ventricular ejection fraction 45-50% Severely increased left ventricular wall thickness Moderate to severely dilated left and right atrium No pericardial effusion Previewed by: Dr. Chico Nguyễn DO (Electronically Signed) Final Date: 17 June 2024 13:18
[2024-06-17] MEDS ORDERED: cloNIDine 0.3 MG/24HR PATCH TRANSDERM SCH (14:00)
[2024-06-17 15:07] VITALS: BMI 23.7
--- NOTE | 2024-06-18 16:17 | P.DS ---
Providers Date of admission: 06/16/24 01:48 Attending physician: Jj Galindo Consults: 06/16/24 01:46 Consult Physician Routine Consulting Provider: Jonn Marcum Consult Reason/Comments: chf Do you want consulting provider notified?: Yes Consult Physician Routine Consulting Provider: Brianne Rodriguez Consult Reason/Comments: chf Do you want consulting provider notified?: Yes Primary care physician: Jj Galindo [facility] Hospital Course: Final Diagnosis End stage renal disease maintained on MWF hemodialysis schedule Shortness of breath due to volume overload Hypertension with hypertensive urgency on admission Nausea/vomiting likely due to increased creatinine and hypertension Chest pain most likely secondary to uncontrolled hypertension Coronary artery disease with prior PCI. Ischemic cardiomyopathy EF 45-50% Acute on chronic diastolic heart failure Hyperkalemia due to the renal dysfunction Troponin leak from ESRD Diabetes mellitus type 2 Anemia of chronic disease Gastroesophageal reflux disease Diabetic peripheral neuropathy Dyslipidemia Final Diagnosis Patient is evaluated in follow up today on the medical floor. His shortness of breath and nausea has resolved. He will continue his MWF hemodialysis sessions as usual. BP medications adjusted. Cleared for CO home. Hospital Course This is a 43-year-old male with medical history significant for congestive heart failure with ischemic cardiomyopathy, end-stage renal disease maintained on hemodialysis, diabetic neuropathy and diabetes mellitus type 2, coronary artery disease with prior PCI. Patient has a known ejection fraction of 45 to 50%. He comes into the hospital with a 1 day history of shortness of breath nausea vomiting. At this time he is not currently having any further reports of vomiting and not feeling nauseous at this time. He is maintained on an outpatient hemodialysis schedule every Friday he states that he has not missed any dialysis and has been compliant with all of his blood pressure medications. He was found to be significantly hypertensive with a blood pressure of 212/97 on admission. He follows with Dr. Galindo in the medical office as well as Dr. Marcum. Patient has been admitted to the hospital for volume overload and hypertensive urgency he is currently evaluated in the ER undergoing hemodialysis. He remains hypertensive cardiology is on board and adjusting medications. Echocardiogram performed on 03/08/2024 revealed EF 45 to 50%, global hypokinesia, severe left ventricular wall thickness, moderate TR, small pericardial effusion. RVSP 62 mmHg. Lexiscan Cardiolite stress test was performed on 04/08/2024 which revealed EF of 45% and no evidence of reversible ischemia. Catapres was increased to 0.3 mg, patient was resumed back on his home blood pressure medications. Echocardiogram done reveals EF 45-50% severely increased left ventricular wall thickness, moderate to severely dilated left and right atrium. No pericardial effusion. He is not having any chest pain, shortness of breath, nausea vomiting or diarrhea. He is awake alert oriented x 3. Blood pressure now controlled. He will be discharged home. Discharge Disposition Please see medication reconciliation for a list of current medications. Thank you for allowing us to participate in the care of this patient. The impression and plan of care has been dictated by Taty Boswell, Nurse Practitioner as directed. Dr. Myah MD I have performed a history and physical examination and medical decision making of this patient, discussed the same with the dictator, and agree with the dictators assessment and plan as written, documented as a scribe. Based on total visit time, I have performed more than 50% of this visit. Patient Condition at Discharge: Fair Plan - Discharge Summary New Discharge Prescriptions: New cloNIDine 0.3 MG/24HR PATCH [Catapres-TTS] 1 patch TRANSDERM Q7D #2 patch Furosemide [Lasix] 80 mg PO BID@0900,1600 tab Aspirin 81 mg PO DAILY #30 tab carvediloL [Coreg*] 25 mg PO BID-W/MEALS #120 tab Continue Insulin Glargine,Hum.rec.anlog [Lantus Solostar Pen] 10 unit SQ HS Nitroglycerin Sl Tabs [Nitrostat] 0.4 mg SL Q5M PRN PRN Reason: Chest Pain Losartan Potassium [Cozaar] 100 mg PO DAILY NIFEdipine XL [Procardia XL] 90 mg PO HS hydrALAZINE HCL [Apresoline] 50 mg PO TID-W/MEALS Sacubitril/Valsartan [Entresto 24 mg-26 mg Tablet] 1 tab PO BID Discontinued carvediloL [Coreg] 50 mg PO BID Furosemide [Lasix] 80 mg PO BID PRN PRN Reason: Edema Discharge Medication List Insulin Glargine,Hum.rec.anlog [Lantus Solostar Pen] 10 unit SQ HS 05/09/20 [History] Nitroglycerin Sl Tabs [Nitrostat] 0.4 mg SL Q5M PRN 05/09/20 [History] Losartan Potassium [Cozaar] 100 mg PO DAILY 11/03/20 [History] NIFEdipine XL [Procardia XL] 90 mg PO HS 03/08/24 [History] Sacubitril/Valsartan [Entresto 24 mg-26 mg Tablet] 1 tab PO BID 06/16/24 [History] hydrALAZINE HCL [Apresoline] 50 mg PO TID-W/MEALS 06/16/24 [History] Aspirin 81 mg PO DAILY #30 tab 06/17/24 [Rx] Furosemide [Lasix] 80 mg PO BID@0900,1600 tab 06/17/24 [Rx] carvediloL [Coreg*] 25 mg PO BID-W/MEALS #120 tab 06/17/24 [Rx] cloNIDine 0.3 MG/24HR PATCH [Catapres-TTS] 1 patch TRANSDERM Q7D #2 patch 06/17/24 [Rx] Follow up Appointment(s)/Referral(s): Justen Martines MD [STAFF PHYSICIAN] - 1 Week Jj Galindo MD [Primary Care Provider] - 1-2 days Jonn Marcum DO [STAFF PHYSICIAN] - 1 Week Ambulatory/Diagnostic Orders: Basic Metabolic Panel [LAB.AMB] Time Frame: 3 Days, Location: None Selected Complete Blood Count w/diff [LAB.AMB] Location: None Selected Magnesium [LAB.AMB] Location: None Selected Patient Instructions/Handouts: Heart Failure (ER) Activity/Diet/Wound Care/Special Instructions: Continue usual hemodialysis sessions MWF Discharge Disposition: HOME SELF-CARE
== END 2024-06-17 16:55 | disposition home or self-care (01) | DRG 291 ==
LOC: EC 00:17 → 3SCARD 01:48
PROVIDERS: ADMIT Internal Medicine Geriatric Medicine; ATTEND Internal Medicine Geriatric Medicine
PROC: 5A1D70Z Performance of Urinary Filtration, Intermittent, Less than 6 Hours Per Day (ICD-10-PCS; principal; 2024-06-16)
DX: I13.2 Hypertensive heart and chronic kidney disease with heart failure and with stage 5 chronic kidney disease, or end stage renal disease (principal); I50.33 Acute on chronic diastolic (congestive) heart failure; N18.6 End stage renal disease; I16.1 Hypertensive emergency; I31.39 Other pericardial effusion (noninflammatory); D63.1 Anemia in chronic kidney disease; E11.22 Type 2 diabetes mellitus with diabetic chronic kidney disease; I16.0 Hypertensive urgency; E11.319 Type 2 diabetes mellitus with unspecified diabetic retinopathy without macular edema; E11.42 Type 2 diabetes mellitus with diabetic polyneuropathy; E78.5 Hyperlipidemia, unspecified; E87.5 Hyperkalemia; H54.62 Unqualified visual loss, left eye, normal vision right eye; I25.10 Atherosclerotic heart disease of native coronary artery without angina pectoris; I25.2 Old myocardial infarction; I25.5 Ischemic cardiomyopathy; I27.20 Pulmonary hypertension, unspecified; K21.9 Gastro-esophageal reflux disease without esophagitis; M89.8X9 Other specified disorders of bone, unspecified site; I07.1 Rheumatic tricuspid insufficiency; Z79.4 Long term (current) use of insulin; Z79.82 Long term (current) use of aspirin; Z79.899 Other long term (current) drug therapy; Z82.49 Family history of ischemic heart disease and other diseases of the circulatory system; Z83.3 Family history of diabetes mellitus; Z95.5 Presence of coronary angioplasty implant and graft; Z99.2 Dependence on renal dialysis
CPT/HCPCS: 96365; 96366; 96372; 96375; 96376; 99291

== ENCOUNTER 2024-08-28 09:23 | Inpatient (IN) | payer MEDICARE ==
[2024-08-28] MEDS ORDERED: EPINEPHrine 10 ML SYRINGE (0.1 MG/ML) ONE (09:40)
[2024-08-28] MEDS ORDERED: SODIUM BICARB 8.4% 50 ML SYR (1 MEQ/ML) ONE (09:40)
[2024-08-28] MEDS ORDERED: CALCIUM CHLORIDE 100 MG/ML 10 ML SYRINGE ONE (09:40)
[2024-08-28] MEDS ORDERED: SUCCINYLCHOLINE CHLORIDE 200 MG/10 ML VIAL IV ONE (09:40)
[2024-08-28] MEDS ORDERED: ATROPINE SULFATE 0.1 MG/ML 10ML SYRINGE ONE (09:40)
[2024-08-28] MEDS ORDERED: MIDAZOLAM 1 MG/ML 5 ML VIAL ONE (09:40)
[2024-08-28] MEDS ORDERED: RX INFO: IV CONTRAST WAS GIVEN 1 EACH MISC MISCELLANE PRN (10:00)
[2024-08-28 10:21] LABS: Anisocytosis Slight; HCT 35.4 % (39.0-53.0); Hypochromasia Marked; MCH 31.5 pg (25.0-35.0); MCHC 31.2 g/dL (31.0-37.0); MCV 100.9 fL (80.0-100.0); Macrocytosis Moderate; Mean Platelet Volume 10.5; RBC 3.51 m/uL (4.30-5.90); RDW 18.3 % (11.5-15.5); WBC 31.6 k/uL (3.8-10.6)
--- NOTE | 2024-08-28 10:26 | XR ---
EXAMINATION TYPE: XR chest 1V portable DATE OF EXAM: 08/28/2024 COMPARISON: 06/16/2024 HISTORY: Chest pain TECHNIQUE: Single frontal view of the chest is obtained. FINDINGS: The ET tube is 6.1 cm above the seth. There is an NG tube within the stomach. There is marked cardiomegaly. There is no pleural effusion or pneumothorax. There is partially consolidated opacity in the right mid and lower lung zone consistent with pulmonar y edema or pneumonic infiltrate. In the left lung, the pulmonary vasculature does not appear grossly congested. The osseous structures are intact. IMPRESSION: 1. ET tube 6.1 cm above the seth. NG tube within the stomach. 2. Marked cardiomegaly. 3. Acute cardiopulmonary disease involving the right lung as described above. [facility], , 08/28/2024 10:23 AM
[2024-08-28] MEDS: SODIUM CHLORIDE 0.9% 500 ML 500 ML IV STA (10:33)
[2024-08-28 10:35] LABS: AST 33 U/L (17-59); African American GFR (CKD) 9 (>60 ml/min/1.73 sqM); Albumin 3.6 g/dL (3.5-5.0); Alkaline Phosphatase 44 U/L (38-126); Anion Gap 17 mmol/L; Blood Urea Nitrogen 31 mg/dL (9-20); Calcium 8.2 mg/dL (8.4-10.2); Carbon Dioxide 20 mmol/L (22-30); Chloride 98 mmol/L (98-107); Glucose 101 mg/dL (74-99); Magnesium 1.6 mg/dL (1.6-2.3); Non-African American GFR(CKD) 8 (>60 ml/min/1.73 sqM); Sodium 135 mmol/L (137-145); Total Bilirubin 1.2 mg/dL (0.2-1.3); Total Protein 6.7 g/dL (6.3-8.2)
[2024-08-28] MEDS: NOREPINEPHRINE 4 MG in SODIUM CHLORIDE 0.9% 250 ML IV ONE (10:36)
[2024-08-28 10:41] LABS: ALT 26 U/L (4-49)
[2024-08-28 10:42] LABS: INR 1.8 (<1.2); Partial Thromboplastin Time 35.7 sec (22.0-30.0); Prothrombin Time 18.5 sec (10.0-12.5)
[2024-08-28] MEDS ORDERED: ALTEPLASE 50 MG in EMPTY BAG 1 BAG IV STA (10:47)
--- NOTE | 2024-08-28 10:49 | ED ---
General Adult HPI - General Chief complaint: Altered Mental Status Stated complaint: Altered Mental Status Source: patient, RN notes reviewed, old records reviewed Mode of arrival: EMS Limitations: no limitations - History of Present Illness Initial comments: This is a 44-year-old male who was brought in for altered mental status. Upon arrival patient stopped breathing and had no pulses and CPR was started. Pulses were obtained shortly thereafter no medicines were given. According to the the patient had dialysis yesterday and he was a little altered last night but s he gave him some to eat and he seemed to get better. Last night she felt he was not breathing right and this morning he was significantly altered so she called the ambulance. - Related Data Home Medications Medication Instructions Recorded Confirmed Nitroglycerin Sl Tabs [Nitrostat] 0.4 mg SL Q5M PRN 05/09/20 08/28/24 NIFEdipine XL [Procardia XL] 90 mg PO DAILY 03/08/24 08/28/24 Sacubitril/Valsartan [Entresto 24 1 tab PO BID 06/16/24 08/28/24 mg-26 mg Tablet] hydrALAZINE HCL [Apresoline] 50 mg PO TID-W/MEALS 06/16/24 08/28/24 Pantoprazole Sodium [Protonix] 20 mg PO DAILY 08/28/24 08/28/24 carvediloL [Coreg] 25 mg PO BID 08/28/24 08/28/24 cloNIDine 0.3 MG/24HR PATCH 1 patch TRANSDERM SA 08/28/24 08/28/24 [Catapres-TTS] Previous Rx's Medication Instructions Recorded Aspirin 81 mg PO DAILY #30 tab 06/17/24 Allergies Allergy/AdvReac Type Severity Reaction Status Date / Time nickel Allergy Rash/Hives Verified 06/16/24 08:15 Review of Systems ROS Statement: Those systems with pertinent positive or pertinent negative responses have been documented in the HPI. ROS Other: All systems not noted in ROS Statement are negative. Past Medical History Past Medical History: Coronary Artery Disease (CAD), Heart Failure, Eye Disorder, GERD/Reflux, Hyperlipidemia, Hypertension, Myocardial Infarction (AR), Renal Disease, Respiratory Disorder Additional Past Medical History / Comment(s): Pt recently admitted to [facility] on 05/09/20 with acute on chronic CHF/amyloidosis with generalized anasarca/acute on chronic kidney injury/acute anemia/advanced CAD/valvular disease/severe pulmonary htn/abnormal liver test/hyperlipidemia. Other hx: IDDM type II, pt states informed he had kidney disease in Feb, 2020 then ESRD diagnosed 05/09/20 with hemodialysis M/W/F,neuropathy bilateral feet, L foot ulcer with debridements, L eye blindness d/t diabetic retinopathy, ischemic cardiomyopathy, anasarca/lower leg edema. Last Myocardial Infarction Date:: 03/30/2018 History of Any Multi-Drug Resistant Organisms: None Reported Past Surgical History: Heart Catheterization With Stent Additional Past Surgical History / Comment(s): 05/17/20 R subclavian hemodialysis catheter, debridements L foot wound, R eye surgery-pt believes to remove cataract, SEAN fistula Additional Past Anesthesia/Blood Transfusion Reaction / Comment(s): During 3rd debridement L foot ulcer Date of Last Stent Placement:: 03/31/2018 Past Psychological History: No Psychological Hx Reported Smoking Status: Never smoker Past Alcohol Use History: None Reported Past Drug Use History: None Reported - Past Family History Mother Family Medical History: Diabetes Mellitus, Hyperlipidemia, Hypertension Father Family Medical History: Diabetes Mellitus, Hypertension General Exam - General Exam Comments Initial Comments: GENERAL: Patient is well-developed and well-nourished. Patient is unresponsive ENT: Neck is soft and supple. No significant lymphadenopathy is noted. Oropharynx is clear. Moist mucous membranes. Neck has full range of motion without eliciting any pain. EYES: The sclera were anicteric and conjunctiva were pink and moist. Extraocular movements were intact and pupils were equal round and reactive to light. Eyelids were unremarkable. PULMONARY: Unlabored respirations. Good breath sounds bilaterally. No audible rales rhonchi or wheezing was noted. CARDIOVASCULAR: There is a regular rate and rhythm without any murmurs gallops or rubs. ABDOMEN: Soft and nontender with normal bowel sounds. SKIN: Skin is clear with no lesions or rashes and otherwise unremarkable. Patient has a chronic wound to his left foot does not appear to be acutely infected NEUROLOGIC: Patient is unresponsive. PSYCHIATRIC: Unable to assess Limitations: no limitations Course Vital Signs 08/28/24 08/28/24 08/28/24 09:41 09:57 10:02 Temperature Pulse Rate 56 L 73 Respiratory 5 L 15 Rate Blood Pressure 74/56 151/130 O2 Sat by Pulse 56 L Oximetry Fraction of 100 Inspired Oxygen (FIO2) 08/28/24 08/28/24 08/28/24 10:10 10:21 10:32 Temperature Pulse Rate 64 60 Respiratory 20 20 Rate Blood Pressure 69/51 103/92 O2 Sat by Pulse 98 Oximetry Fraction of 100 Inspired Oxygen (FIO2) 08/28/24 08/28/24 08/28/24 10:50 11:10 11:40 Temperature Pulse Rate 98 65 Respiratory 20 20 Rate Blood Pressure 175/96 85/62 O2 Sat by Pulse 97 99 Oximetry Fraction of 100 Inspired Oxygen (FIO2) 08/28/24 08/28/24 08/28/24 11:45 11:50 11:55 Temperature Pulse Rate 65 65 65 Respiratory 20 20 20 Rate Blood Pressure 80/56 80/62 81/67 O2 Sat by Pulse 100 100 98 Oximetry Fraction of Inspired Oxygen (FIO2) 08/28/24 08/28/24 08/28/24 12:00 12:05 12:10 Temperature 92.1 F L Pulse Rate 64 64 64 Respiratory 20 20 20 Rate Blood Pressure 81/24 86/64 86/64 O2 Sat by Pulse 100 100 100 Oximetry Fraction of Inspired Oxygen (FIO2) 08/28/24 08/28/24 08/28/24 12:15 12:20 12:25 Temperature Pulse Rate 63 63 63 Respiratory 20 20 20 Rate Blood Pressure 83/67 79/63 97/64 O2 Sat by Pulse 100 100 99 Oximetry Fraction of Inspired Oxygen (FIO2) 08/28/24 08/28/24 08/28/24 12:30 12:35 12:40 Temperature Pulse Rate 62 62 61 Respiratory 20 20 20 Rate Blood Pressure 91/65 88/70 90/68 O2 Sat by Pulse 100 100 100 Oximetry Fraction of Inspired Oxygen (FIO2) 08/28/24 08/28/24 08/28/24 12:45 12:50 12:55 Temperature Pulse Rate 61 61 61 Respiratory 20 20 20 Rate Blood Pressure 91/69 90/69 93/69 O2 Sat by Pulse 100 100 100 Oximetry Fraction of Inspired Oxygen (FIO2) 08/28/24 08/28/24 08/28/24 13:05 13:10 13:14 Temperature Pulse Rate 60 59 L 56 L Respiratory 20 20 20 Rate Blood Pressure 90/61 75/59 75/59 O2 Sat by Pulse 100 100 100 Oximetry Fraction of Inspired Oxygen (FIO2) 08/28/24 08/28/24 08/28/24 13:16 13:18 13:20 Temperature Pulse Rate 56 L 57 L 57 L Respiratory 20 20 20 Rate Blood Pressure 75/60 75/54 71/57 O2 Sat by Pulse 100 100 99 Oximetry Fraction of Inspired Oxygen (FIO2) 08/28/24 08/28/24 08/28/24 13:22 13:24 13:26 Temperature Pulse Rate 58 L 58 L 57 L Respiratory 20 20 21 Rate Blood Pressure 71/57 95/75 71/54 O2 Sat by Pulse 100 100 Oximetry Fraction of Inspired Oxygen (FIO2) 08/28/24 08/28/24 08/28/24 13:28 13:30 13:32 Temperature 95.5 F L Pulse Rate 57 L 57 L 56 L Respiratory 21 21 23 Rate Blood Pressure 71/54 71/53 71/53 O2 Sat by Pulse 100 100 Oximetry Fraction of Inspired Oxygen (FIO2) 08/28/24 08/28/24 08/28/24 13:34 13:36 13:38 Temperature Pulse Rate 56 L 56 L 55 L Respiratory 23 18 22 Rate Blood Pressure 69/52 70/51 73/52 O2 Sat by Pulse 100 99 100 Oximetry Fraction of Inspired Oxygen (FIO2) 08/28/24 08/28/24 08/28/24 13:40 13:42 13:44 Temperature Pulse Rate 53 L 53 L 27 L Respiratory 20 20 0 L Rate Blood Pressure 68/49 72/52 74/49 O2 Sat by Pulse 100 100 Oximetry Fraction of Inspired Oxygen (FIO2) 08/28/24 08/28/24 08/28/24 13:46 13:48 13:50 Temperature Pulse Rate 54 L 53 L 53 L Respiratory 27 H 25 H 25 H Rate Blood Pressure 72/47 62/50 66/47 O2 Sat by Pulse 100 100 Oximetry Fraction of Inspired Oxygen (FIO2) 08/28/24 08/28/24 08/28/24 13:52 13:54 13:56 Temperature Pulse Rate 52 L 52 L 52 L Respiratory 26 H 25 H 21 Rate Blood Pressure 64/48 61/49 69/50 O2 Sat by Pulse 100 100 Oximetry Fraction of Inspired Oxygen (FIO2) 08/28/24 08/28/24 08/28/24 13:58 14:02 14:04 Temperature Pulse Rate 52 L 46 L 52 L Respiratory 26 H 20 27 H Rate Blood Pressure 89/63 63/46 63/45 O2 Sat by Pulse 100 Oximetry Fraction of Inspired Oxygen (FIO2) 08/28/24 08/28/24 08/28/24 14:06 14:08 14:10 Temperature Pulse Rate 51 L 51 L 51 L Respiratory 24 24 13 Rate Blood Pressure 68/45 66/49 62/46 O2 Sat by Pulse 99 99 Oximetry Fraction of Inspired Oxygen (FIO2) 08/28/24 14:12 Temperature Pulse Rate Respiratory Rate Blood Pressure 113/80 O2 Sat by Pulse Oximetry Fraction of Inspired Oxygen (FIO2) Procedures - Sepsis Sepsis Focused Exam #1 Time Sepsis Criteria Met: 11:15 Sepsis Focused Exam Date: 08/28/24 Sepsis Focused Exam Time: 13:40 Sepsis Focused Exam Complete: Yes Vital Signs & RN Notes Reviewed: Yes Capillary Refill: > 2 Seconds: Fingers Peripheral Pulses: Weak: Radial (L) Skin Color: Normal for Patient Respiratory Exam: rales Cardiovascular Exam: regular rate Medical Decision Making - Medical Decision Making EKG is interpreted by myself. EKG shows a sinus rhythm at [address] intervals 210 QRS is 109 QT interval is 417 QTc is 433. Patient EKG shows some ST segment elevation in V1 and V2 but he had Braaksma that ST segment ovation on previous EKGs it is more indicative of early repolarization. Repeat EKG was done and was interpreted by myself. EKG shows sinus rhythm at [address] interval is 202 QRS is 101 QT interval is 432 QTc is 445. Patient EKG shows repolarization leads V2 through V5. Was pt. sent in by a medical professional or institution (, PA, AMMUNITION SUPERVISOR, urgent care, hospital, or senior care...) When possible be specific @ -No Did you speak to anyone other than the patient for history (EMS, parent, family, police, friend...)? What history was obtained from this source @ -I spoke with the and EMS only for history because the patient went into cardiac arrest as soon as he arrived. Did you review nursing and triage notes (agree or disagree)? Why? @ -I reviewed and agree with nursing and triage notes Were old charts reviewed (outside hosp., previous admission, EMS record, old EKG, old radiological studies, urgent care reports/EKG's, senior care records)? Report findings @ -No old charts were reviewed Differential Diagnosis? @ -Differential Altered Mental Status: Hypoglycemia, DKA, hypercapnia, ETOH, overdose, CO poisoning, trauma, myxedema coma, HTN encephalopathy, infection, encephalitis, psychosis, intercranial hemorrhage, hepatic encephalopathy, meningitis, CVA, this is not meant to be an all-inclusive list EKG interpreted by me (3pts min.). @ -As above X-rays interpreted by me (1pt min.). @ -Chest x-ray was done after patient was intubated and showed ETT tube in place as well as the NG tube in place CT interpreted by me (1pt min.). @ -CT of the brain shows no acute abnormality. CT of the chest shows no pulmonary embolism does show bilateral infiltrates and small effusions. U/S interpreted by me (1pt. min.). @ -None done What testing was considered but not performed or refused? (CT, X-rays, U/S, labs)? Why? @ -None What meds were considered but not given or refused? Why? @ -None Did you discuss the management of the patient with other professionals (professionals i.e. , PA, AMMUNITION SUPERVISOR, lab, RT, psych nurse, social group worker, manager database, teacher, lodge officer, trimming caser)? Give summary @ -Patient arrived by EMS and was being transferred over to his bed in the emergency department and he stopped breathing shortly thereafter and was pulseless so CPR was started patient got ROSC without any medications. Patient was transferred to the trauma module and coded again there on 2 different occasions. Patient went was given multiple doses of epi calcium chloride sodium bicarb and pulses again were obtained on both occasions and patient was put on Levophed. Patient had a CT of the head and chest no acute abnormality was noted. Patient's blood work started coming back and showing that the patient had pneumonia and it was thought at this time that the patient was septic. Patient was started on Rocephin and vancomycin. Patient was noted to have an infection at 1115. Dr. Garcia came down and saw the patient and put a central line in. I spoke with Dr. Christianson and he will admit the patient and I will admit the patient to the ICU. Lactic acid was elevated however I believe a lot of this is secondary to the fact that he went into cardiopulmonary arrest on 3 separate occasions. Patient did receive a couple liters of fluid while in the emergency department and antibiotics. Was smoking cessation discussed for >3mins.? @ -No Was critical care preformed (if so, how long)? @ -75 minutes Were there social determinants of health that impacted care today? How? (Homelessness, low income, unemployed, alcoholism, drug addiction, transpor tation, low edu. Level, literacy, decrease access to med. care, [facility], rehab)? @ -No Was there de-escalation of care discussed even if they declined (Discuss DNR or withdrawal of care, Hospice)? DNR status @ -No What co-morbidities impacted this encounter? (DM, HTN, Smoking, COPD, CAD, Cancer, CVA, ARF, Chemo, Hep., AIDS, mental health diagnosis, sleep apnea, morbid obesity)? @ -None Was patient admitted / discharged? Hospital course, mention meds given and route, prescriptions, significant lab abnormalities, going to OR and other pertinent info. @ -See above Undiagnosed new problem with uncertain prognosis? @ -No Drug Therapy requiring intensive monitoring for toxicity (Heparin, Nitro, Insul in, Cardizem)? @ -No Were any procedures done? @ -No Diagnosis/symptom? @ -Cardiopulmonary arrest Acute, or Chronic, or Acute on Chronic? @ -Acute Uncomplicated (without systemic symptoms) or Complicated (systemic symptoms)? @ -Complicated Side effects of treatment? @ -No Exacerbation, Progression, or Severe Exacerbation? @ -No Poses a threat to life or bodily function? How? (Chest pain, USA, AR, pneumonia, PE, COPD, DKA, ARF, appy, cholecystitis, CVA, Diverticulitis, Homicidal, Suicidal, threat to staff... and all critical care pts) @ -Yes this can obviously lead to the patient's Diagnosis/symptom? @ -Pneumonia Acute, or Chronic, or Acute on Chronic? @ -Acute Uncomplicated (without systemic symptoms) or Complicated (systemic symptoms)? @ -Comp Side effects of treatment? @ -None Exacerbation, Progression, or Severe Exacerbation] @ -No Poses a threat to life or bodily function? @ -Yes this can lead to sepsis which the patient currently has and to endorgan dysfunction and possible Diagnosis/symptom? @ -Sepsis Acute, or Chronic, or Acute on Chronic? @ -Acute Uncomplicated (without systemic symptoms) or Complicated (systemic symptoms)? @ -Complicated Side effects of treatment? @ -None Exacerbation, Progression, or Severe Exacerbation] @ -No Poses a threat to life or bodily function? @ -Yes this can lead to endorgan dysfunction - Lab Data Result diagrams: 08/28/24 10:14 08/28/24 10:14 Lab Results 08/28/24 08/28/24 08/28/24 Range/Units 10:14 10:14 10:14 WBC 31.6 H (3.8-10.6) k/uL RBC 3.51 L (4.30-5.90) m/uL Hgb 11.0 L (13.0-17.5) gm/dL Hct 35.4 L (39.0-53.0) % MCV 100.9 H (80.0-100.0) fL MCH 31.5 (25.0-35.0) pg MCHC 31.2 (31.0-37.0) g/dL RDW 18.3 H (11.5-15.5) % Plt Count 61 L (150-450) k/uL MPV 10.5 Neutrophils % (Manual) 83 % Band Neuts % (Manual) 4 % Lymphocytes % (Manual) 4 % Monocytes % (Manual) 5 % Metamyelocytes % 3 % Myelocytes % 2 % Neutrophils # (Manual) 27.40 H (1.3-7.7) k/uL Lymphocytes # (Manual) 1.26 (1.0-4.8) k/uL Monocytes # (Manual) 1.58 H (0-1.0) k/uL Metamyelocytes # (Man) 0.95 H (0) k/uL Myelocytes # (Manual) 0.63 H (0) k/uL Nucleated RBCs 0 (0-0) /100 WBC Manual Slide Review Performed Hypochromasia Marked Anisocytosis Slight Macrocytosis Moderate PT 18.5 H (10.0-12.5) sec INR 1.8 H (<1.2) APTT 35.7 H (22.0-30.0) sec D-Dimer 9.08 H (<0.60) mg/L FEU Sample Site ABG pH (7.35-7.45) ABG pCO2 (35-45) mmHg ABG pO2 (83-108) mmHg ABG HCO3 (21-25) mmol/L ABG Total CO2 (19-24) mmol/L ABG O2 Saturation (94-97) % ABG Base Excess mmol/L Dangelo Test Hemoglobin (13.0-17.5) gm/dL FiO2 % Sodium 135 L (137-145) mmol/L Potassium 6.0 H (3.5-5.1) mmol/L Chloride 98 (98-107) mmol/L Carbon Dioxide 20 L (22-30) mmol/L Anion Gap 17 mmol/L BUN 31 H (9-20) mg/dL Creatinine 7.48 H* (0.66-1.25) mg/dL Est GFR (CKD-EPI)AfAm 9 (>60 ml/min/1.73 sqM) Est GFR (CKD-EPI)NonAf 8 (>60 ml/min/1.73 sqM) Glucose 101 H (74-99) mg/dL Plasma Lactic Acid Robb (0.7-2.0) mmol/L Calcium 8.2 L (8.4-10.2) mg/dL Magnesium 1.6 (1.6-2.3) mg/dL Total Bilirubin 1.2 (0.2-1.3) mg/dL AST 33 (17-59) U/L ALT 26 (4-49) U/L Alkaline Phosphatase 44 (38-126) U/L Troponin I (0.000-0.034) ng/mL NT-Pro-B Natriuret Pep [id number] pg/mL Total Protein 6.7 (6.3-8.2) g/dL Albumin 3.6 (3.5-5.0) g/dL 08/28/24 08/28/24 08/28/24 Range/Units 10:14 11:18 13:00 WBC (3.8-10.6) k/uL RBC (4.30-5.90) m/uL Hgb (13.0-17.5) gm/dL Hct (39.0-53.0) % MCV (80.0-100.0) fL MCH (25.0-35.0) pg MCHC (31.0-37.0) g/dL RDW (11.5-15.5) % Plt Count (150-450) k/uL MPV Neutrophils % (Manual) % Band Neuts % (Manual) % Lymphocytes % (Manual) % Monocytes % (Manual) % Metamyelocytes % % Myelocytes % % Neutrophils # (Manual) (1.3-7.7) k/uL Lymphocytes # (Manual) (1.0-4.8) k/uL Monocytes # (Manual) (0-1.0) k/uL Metamyelocytes # (Man) (0) k/uL Myelocytes # (Manual) (0) k/uL Nucleated RBCs (0-0) /100 WBC Manual Slide Review Hypochromasia Anisocytosis Macrocytosis PT (10.0-12.5) sec INR (<1.2) APTT (22.0-30.0) sec D-Dimer (<0.60) mg/L FEU Sample Site l brach ABG pH 7.39 (7.35-7.45) ABG pCO2 40 (35-45) mmHg ABG pO2 >420 H (83-108) mmHg ABG HCO3 24 (21-25) mmol/L ABG Total CO2 25 H (19-24) mmol/L ABG O2 Saturation 100.0 H (94-97) % ABG Base Excess -1.1 mmol/L Dangelo Test Yes Hemoglobin 9.6 L (13.0-17.5) gm/dL FiO2 100 % Sodium (137-145) mmol/L Potassium (3.5-5.1) mmol/L Chloride (98-107) mmol/L Carbon Dioxide (22-30) mmol/L Anion Gap mmol/L BUN (9-20) mg/dL Creatinine (0.66-1.25) mg/dL Est GFR (CKD-EPI)AfAm (>60 ml/min/1.73 sqM) Est GFR (CKD-EPI)NonAf (>60 ml/min/1.73 sqM) Glucose (74-99) mg/dL Plasma Lactic Acid Robb 8.0 H* (0.7-2.0) mmol/L Calcium (8.4-10.2) mg/dL Magnesium (1.6-2.3) mg/dL Total Bilirubin (0.2-1.3) mg/dL AST (17-59) U/L ALT (4-49) U/L Alkaline Phosphatase (38-126) U/L Troponin I 0.072 H* (0.000-0.034) ng/mL NT-Pro-B Natriuret Pep pg/mL Total Protein (6.3-8.2) g/dL Albumin (3.5-5.0) g/dL Disposition Clinical Impression: Sepsis, Pneumonia, Cardiopulmonary arrest Disposition: ADMITTED IP TO THIS [facility] Time of Disposition: 13:09
[2024-08-28 10:58] LABS: NT-Pro-B-Type Natriuretic Pept 106000 pg/mL
[2024-08-28 11:07] LABS: Band Neutrophils % 4 %; Lymphocytes # (M) 1.26 k/uL (1.0-4.8); Metamyelocytes # (M) 0.95 k/uL (0); Metamyelocytes % 3 %; Monocytes # (M) 1.58 k/uL (0-1.0); Myelocytes # (M) 0.63 k/uL (0); Myelocytes % 2 %; Neutrophils % (M) 83 %; Nucleated Red Blood Cells 0 /100 WBC (0-0); Total Cells Counted 200
[2024-08-28 11:12] LABS: Platelet Count 61 k/uL (150-450)
[2024-08-28 11:21] LABS: ABG Base Excess -1.1 mmol/L; ABG HCO3 24 mmol/L (21-25); ABG PCO2 40 mmHg (35-45); ABG PH 7.39 (7.35-7.45); ABG TCO2 25 mmol/L (19-24); Allen Test Performed? Yes
[2024-08-28 11:23] LABS: ABG PO2 >420 mmHg (83-108)
[2024-08-28] MEDS: LORazepam 2 MG/ML INJ IV STA (11:25)
--- NOTE | 2024-08-28 11:30 | CT ---
EXAMINATION TYPE: CT brain wo con DATE OF EXAM: 08/28/2024 COMPARISON: None CLINICAL INDICATION: Male, 44 years old with history of Unresponsive; PHH, Unresponsive TECHNIQUE: CT of the brain performed without contrast with sagittal and coronal reformats. CT DLP: [address] CTDI: mGy Automated exposure control for dose reduction was used. Findings: The ventricles, basal cisterns and sulci over the convexities are within normal limits and there is n o mass effect or shift of midline structures. No abnormal density is seen throughout the brain parenchyma and there is no acute intra or extra-axia l hemorrhage. The posterior fossa including the brainstem, fourth ventricle and cerebellar pontine angles appear no rmal. Intraorbital contents appear normal and symmetric. There is marked decrease in diffuse density within the vitreous of the left globe with anterior focal calcifications. The findings raise the question o f acute atrial hemorrhage and clinical correlation is recommended. The calvarium is intact. IMPRESSION: 1. There is no acute bleed or mass effect. 2. Abnormal left globe as described above. [facility], Workstation: [id number] 08/28/2024 11:27 AM
--- NOTE | 2024-08-28 11:36 | CT ---
EXAMINATION TYPE: CT angio chest DATE OF EXAM: 08/28/2024 COMPARISON: None CLINICAL INDICATION: Male, 44 years old with history of Neck and back pain; PHH, Unresponsive, coded in ER TECHNIQUE: CTA scan of the thorax is performed with IV Contrast, patient injected with 80 mL of Isovue 370, pulm onary embolism protocol. MIP images are created and reviewed. CT DLP: 366.[address] CTDI: mGy Automated exposure control for dose reduction was used. FINDINGS: There are small bilateral nasal infiltrates and small effusions. There is no pneumothorax. There is m arked cardiomegaly. There is an ET tube in place. The pulmonary arterial vasculature is well-opacified and there are no filling defects to suggest pulm onary embolism. Limited scanning through the upper abdomen reveals no gross abnormality. The osseous structures are intact. IMPRESSION: 1. No evidence of pulmonary 2. Small bibasilar infiltrates and effusions. 3. Marked cardiomegaly. [facility], , 08/28/2024 11:33 AM
[2024-08-28] MEDS ORDERED: VANCOMYCIN IV PER PHARMACY 1 EACH MISC MISCELLANE PRN (11:52)
[2024-08-28] MEDS: ALTEPLASE IV ONE (12:40)
[2024-08-28] MEDS: SODIUM CHLORIDE 0.9% 50 ML MINI-BAG IV ONE (13:00)
[2024-08-28] MEDS: cefTRIAXone IN SWFI 1,000 MG/10 ML SYRINGE IVP STA (13:04)
[2024-08-28] MEDS ORDERED: NALOXONE 0.4 MG/ML 1 ML VIAL IV PRN (13:18)
[2024-08-28 14:23] LABS: Glucose,Whole Blood 143 mg/dL (70-110)
[2024-08-28 14:23] LABS: Glucose,Whole Blood 45 mg/dL (70-110)
--- NOTE | 2024-08-28 14:33 | P.HPIM ---
History of Present Illness H&P Date: 08/28/24 History of present illness; patient is a 44-year-old gentleman past medical history significant for end-stage renal disease on dialysis who presented to the ER for altered mental status. History was limited as patient was altered. According to patient was acting confused yesterday after dialysis. There was no complaint of fever or chills. Later in the night noticed the patient was having difficulty in breathing. This morning patient was found to be very confused so was brought to the ER. By the time patient came to the ER patient stopped breathing with loss of pulse,, CPR was initiated, ROSC was achieved but pulse was again lost with further 2 rounds of CPR, patient received epi, sodium bicarb and in the process. Patient was intubated in the process. Initial lab work done in the ER showed WBC 31.6, hemoglobin 11, platelet count 61, D-dimer 9.08, sodium 135, potassium 5, BUN 31, creatinine 7.48, calcium 8.2 troponin 0.072 EKG done in the ER showed heart rate of66 , no ST segment elevation or depression seen, no T-wave inversions seen. Chest x-ray done in the ER showed marked cardiomegaly, acute cardiopulmonary disease involving the right lung CT head done showed no acute intracranial process CTA chest done showed no evidence of pulmonary embolism, small bibasilar infiltrates and effusions seen Patient admitted to internal medicine service in ICU REVIEW OF SYSTEMS: Review of system cannot be obtained as patient is currently intubated PHYSICAL EXAMINATION: GENERAL: The patient is intubated HEENT: Pupils are round and equally reacting to light. EOMI. No scleral icterus. No conjunctival pallor. Normocephalic, atraumatic. No pharyngeal erythema. No thyromegaly. CARDIOVASCULAR: S1 and S2 present. No murmurs, rubs, or gallops. PULMONARY: Coarse breath sound bilaterally,, no wheezing or crackles. ABDOMEN: Soft, nontender, nondistended, normoactive bowel sounds. No palpable organomegaly. MUSCULOSKELETAL: No joint swelling or deformity. EXTREMITIES: No cyanosis, clubbing, or pedal edema. NEUROLOGICAL: Intubated SKIN: No rashes. Assessment and plan Septic shock Cardiac arrest Acute encephalopathy Acute hypoxemic respiratory failure requiring mechanical ventilation Hyponatremia Hyperkalemia End-stage renal disease on dialysis Lactic acidosis Monitor vital signs Monitor CBC Monitor CMP Continue telemetry monitoring Ordered blood cultures Ordered vent management Ordered IV Levophed Ordered IV Zosyn and vancomycin Consult ID Consult critical care Consult nephrology for maintenance dialysis Labs and medication were reviewed.. Continue same treatment. Continue with symptomatic treatment. Resume home medication. Monitor labs and vitals. DVT and GI prophylaxis. Further recommendations as per clinical course of the patient Dictation was produced using [employer] dictation software. please excuse any grammatical, word or spelling errors. Past Medical History Past Medical History: Coronary Artery Disease (CAD), Heart Failure, Eye Disorder, GERD/Reflux, Hyperlipidemia, Hypertension, Myocardial Infarction ([place]), Renal Disease, Respiratory Disorder Additional Past Medical History / Comment(s): Pt recently admitted to [facility] on 05/09/20 with acute on chronic CHF/amyloidosis with generalized anasarca/acute on chronic kidney injury/acute anemia/advanced CAD/valvular disease/severe pulmonary htn/abnormal liver test/hyperlipidemia. Other hx: IDDM type II, pt states informed he had kidney disease in Feb, 2020 then ESRD diagnosed 05/09/20 with hemodialysis M/W/F,neuropathy bilateral feet, L foot ulcer with debridements, L eye blindness d/t diabetic retinopathy, ischemic cardiomyopathy, anasarca/lower leg edema. Last Myocardial Infarction Date:: 03/30/2018 History of Any Multi-Drug Resistant Organisms: None Reported Past Surgical History: Heart Catheterization With Stent Additional Past Surgical History / Comment(s): 05/17/20 R subclavian hemodialysis catheter, debridements L foot wound, R eye surgery-pt believes to remove cataract, SEAN fistula Additional Past Anesthesia/Blood Transfusion Reaction / Comment(s): During 3rd debridement L foot ulcer Date of Last Stent Placement:: 03/31/2018 Past Psychological History: No Psychological Hx Reported Smoking Status: Never smoker Past Alcohol Use History: None Reported Past Drug Use History: None Reported - Past Family History Mother Family Medical History: Diabetes Mellitus, Hyperlipidemia, Hypertension Father Family Medical History: Diabetes Mellitus, Hypertension Medications and Allergies Home Medications Medication Instructions Recorded Confirmed Type Nitroglycerin Sl Tabs [Nitrostat] 0.4 mg SL Q5M PRN 05/09/20 08/28/24 History NIFEdipine XL [Procardia XL] 90 mg PO DAILY 03/08/24 08/28/24 History Sacubitril/Valsartan [Entresto 24 1 tab PO BID 06/16/24 08/28/24 History mg-26 mg Tablet] hydrALAZINE HCL [Apresoline] 50 mg PO TID-W/MEALS 06/16/24 08/28/24 History Aspirin 81 mg PO DAILY #30 tab 06/17/24 08/28/24 Rx Pantoprazole Sodium [Protonix] 20 mg PO DAILY 08/28/24 08/28/24 History carvediloL [Coreg] 25 mg PO BID 08/28/24 08/28/24 History cloNIDine 0.3 MG/24HR PATCH 1 patch TRANSDERM SA 08/28/24 08/28/24 History [Catapres-TTS] Allergies Allergy/AdvReac Type Severity Reaction Status Date / Time nickel Allergy Rash/Hives Verified 06/16/24 08:15 Physical Exam Vitals: Vital Signs Temp Pulse Resp BP Pulse Ox FiO2 08/28/24 14:12 113/80 08/28/24 14:10 51 L 13 62/46 99 08/28/24 14:08 51 L 24 66/49 08/28/24 14:06 51 L 24 68/45 99 08/28/24 14:04 52 L 27 H 63/45 100 08/28/24 14:02 46 L 20 63/46 08/28/24 13:58 52 L 26 H 89/63 08/28/24 13:56 52 L 21 69/50 100 08/28/24 13:54 52 L 25 H 61/49 100 08/28/24 13:52 52 L 26 H 64/48 08/28/24 13:50 53 L 25 H 66/47 100 08/28/24 13:48 53 L 25 H 62/50 100 08/28/24 13:46 54 L 27 H 72/47 08/28/24 13:44 27 L 0 L 74/49 08/28/24 13:42 53 L 20 72/52 100 08/28/24 13:40 53 L 20 68/49 100 08/28/24 13:38 55 L 22 73/52 100 08/28/24 13:36 56 L 18 70/51 99 08/28/24 13:34 56 L 23 69/52 100 08/28/24 13:32 95.5 F L 56 L 23 71/53 08/28/24 13:30 57 L 21 71/53 100 08/28/24 13:28 57 L 21 71/54 100 08/28/24 13:26 57 L 21 71/54 100 08/28/24 13:24 58 L 20 95/75 100 08/28/24 13:22 58 L 20 71/57 08/28/24 13:20 57 L 20 71/57 99 08/28/24 13:18 57 L 20 75/54 100 08/28/24 13:16 56 L 20 75/60 100 08/28/24 13:14 56 L 20 75/59 100 08/28/24 13:10 59 L 20 75/59 100 08/28/24 13:05 60 20 90/61 100 08/28/24 12:55 61 20 93/69 100 08/28/24 12:50 61 20 90/69 100 08/28/24 12:45 61 20 91/69 100 08/28/24 12:40 61 20 90/68 100 08/28/24 12:35 62 20 88/70 100 08/28/24 12:30 62 20 91/65 100 08/28/24 12:25 63 20 97/64 99 08/28/24 12:20 63 20 79/63 100 08/28/24 12:15 63 20 83/67 100 08/28/24 12:10 64 20 86/64 100 08/28/24 12:05 92.1 F L 64 20 86/64 100 08/28/24 12:00 64 20 81/24 100 08/28/24 11:55 65 20 81/67 98 08/28/24 11:50 65 20 80/62 100 08/28/24 11:45 65 20 80/56 100 08/28/24 11:40 65 20 85/62 99 08/28/24 11:10 100 08/28/24 10:50 98 20 175/96 97 08/28/24 10:32 60 20 103/92 98 08/28/24 10:21 64 20 69/51 08/28/24 10:10 100 08/28/24 10:02 100 08/28/24 09:57 73 15 151/130 08/28/24 09:41 56 L 5 L 74/56 56 L Intake and Output 08/27/24 08/28/24 08/28/24 22:59 06:59 14:59 Intake Total 56.775 Balance 56.775 Intake: Intake, IV Titration 56.775 Amount Norepinephrine 4 mg In 56.775 Sodium Chloride 0.9% 250 ml @ 0.03 MCG/KG/MIN 6. 481 mls/hr IV .Q24H ONE Rx#:[id number] Other: Weight 56.699 kg Results CBC & Chem 7: 08/28/24 10:14 08/28/24 10:14 Labs: Abnormal Lab Results - Last 24 Hours (Table) 08/28/24 08/28/24 08/28/24 Range/Units 10:14 10:14 10:14 WBC 31.6 H (3.8-10.6) k/uL RBC 3.51 L (4.30-5.90) m/uL Hgb 11.0 L (13.0-17.5) gm/dL Hct 35.4 L (39.0-53.0) % MCV 100.9 H (80.0-100.0) fL RDW 18.3 H (11.5-15.5) % Plt Count 61 L (150-450) k/uL Neutrophils # (Manual) 27.40 H (1.3-7.7) k/uL Monocytes # (Manual) 1.58 H (0-1.0) k/uL Metamyelocytes # (Man) 0.95 H (0) k/uL Myelocytes # (Manual) 0.63 H (0) k/uL PT 18.5 H (10.0-12.5) sec INR 1.8 H (<1.2) APTT 35.7 H (22.0-30.0) sec D-Dimer 9.08 H (<0.60) mg/L FEU ABG pO2 (83-108) mmHg ABG Total CO2 (19-24) mmol/L ABG O2 Saturation (94-97) % Hemoglobin (13.0-17.5) gm/dL Sodium 135 L (137-145) mmol/L Potassium 6.0 H (3.5-5.1) mmol/L Carbon Dioxide 20 L (22-30) mmol/L BUN 31 H (9-20) mg/dL Creatinine 7.48 H* (0.66-1.25) mg/dL Glucose 101 H (74-99) mg/dL Plasma Lactic Acid Robb (0.7-2.0) mmol/L Calcium 8.2 L (8.4-10.2) mg/dL Troponin I (0.000-0.034) ng/mL 08/28/24 08/28/24 08/28/24 Range/Units 10:14 11:18 13:00 WBC (3.8-10.6) k/uL RBC (4.30-5.90) m/uL Hgb (13.0-17.5) gm/dL Hct (39.0-53.0) % MCV (80.0-100.0) fL RDW (11.5-15.5) % Plt Count (150-450) k/uL Neutrophils # (Manual) (1.3-7.7) k/uL Monocytes # (Manual) (0-1.0) k/uL Metamyelocytes # (Man) (0) k/uL Myelocytes # (Manual) (0) k/uL PT (10.0-12.5) sec INR (<1.2) APTT (22.0-30.0) sec D-Dimer (<0.60) mg/L FEU ABG pO2 >420 H (83-108) mmHg ABG Total CO2 25 H (19-24) mmol/L ABG O2 Saturation 100.0 H (94-97) % Hemoglobin 9.6 L (13.0-17.5) gm/dL Sodium (137-145) mmol/L Potassium (3.5-5.1) mmol/L Carbon Dioxide (22-30) mmol/L BUN (9-20) mg/dL Creatinine (0.66-1.25) mg/dL Glucose (74-99) mg/dL Plasma Lactic Acid Robb 8.0 H* (0.7-2.0) mmol/L Calcium (8.4-10.2) mg/dL Troponin I 0.072 H* (0.000-0.034) ng/mL
--- NOTE | 2024-08-28 15:55 | P.CNPUL ---
History of Present Illness Consult date: 08/28/24 Chief complaint: PEA cardiac arrest History of present illness: This is a 44-year-old male patient with incisional disease on hemodialysis. The patient came in to the emergency department this morning with altered mentation. Upon arrival, the patient went apneic and he went into a pulseless PEA rhythm. As such, he was started on resuscitation based on the ACLS protocol and the patient was given CPR and he was intubated. Noted he underwent a 2 additional episodes of cardiac arrest. Noted initial code was 42 minutes, subsequent codes for for 6 minutes and 7 minutes. During the second code, he received a total of 2 doses of epinephrine and a third code he was given 3 doses of epinephrine. He was also given calcium gluconate and bicarb. At the time of my arrival, there was return of spontaneous circulation and the patient was already on pressors and he was on norepinephrine running at 0.06 mcg/kg/min and he had received a total of 2 L of IV fluid bolus. He was in the mechanical ventilator assist- control mode with rate of 20, tidal volume of 350, FiO2 of 100% with a PEEP of 5. He is post intubation chest x-ray was reviewed and it showed cardiomegaly and volume overload. ET tube was adjusted. NG tube was in place. There was marked cardiomegaly. Subsequently, the patient was given a CT angiogram of the chest that showed no evidence of any pulmonary embolism. There was some small bibasilar infiltrates/effusions and marked cardiomegaly. CAT scan of the brain was also done that showed no acute intracranial bleed and the patient had scarring of his vitreous in his left globe. EKG was consistent with normal sinus rhythm. No ST segment elevations or depressions. The patient's white cell count was at 31.6. Hemoglobin was 11 and a platelet count was 61. INR was at 1.8 and a D-dimer was 9.0 with a PTT of 35. Postintubation blood gas showed a pH of 7.39 with a pCO2 of 48 pO2 of more than 420. BUN was 31 with a creatinine of 7.4 and a sodium level was at 135 and a potassium level was 6 with a chloride of 98 and a bicarb level of 20. Initial lactic acid level was at 8.0. proBNP level was more than 100,000 and the troponin was at 0.07. LFTs were essentially within normal limits. The patient was also started on low-dose propofol running at 10 mcg/kg/min. No additional information is available. Ac cording to the , the patient was confused yesterday after dialysis. No significant ultrafiltration was done. No reported fever. No falls. No head trauma. He has a functional AV fistula in the right upper extremity. The patient was in the hospital back in May 2024 and at that time, he was treated for shortness of breath and nausea and he continues to undergo hemodialysis with good results Comorbidities include end-stage renal disease on hemodialysis, diabetes mellitus type 2, diabetic neuropathy, coronary artery disease with prior PCI, ischemic cardiomyopathy with ejection fraction of 45 to 50% and the echocardiogram that was done on 03/08/2024 showed an EF of around 45 to 50% with global hypokinesis and severe thickness of the LV wall with small pericardial effusion.. She also has anemia of chronic disease and hyperlipidemia. Is Review of Systems ROS unobtainable: due to mental status Past Medical History Past Medical History: Coronary Artery Disease (CAD), Heart Failure, Eye Disorder, GERD/Reflux, Hyperlipidemia, Hypertension, Myocardial Infarction ([place]), Renal Disease, Respiratory Disorder Additional Past Medical History / Comment(s): Pt recently admitted to [facility] on 05/09/20 with acute on chronic CHF/amyloidosis with generalized anasarca/acute on chronic kidney injury/acute anemia/advanced CAD/valvular disease/severe pulmonary htn/abnormal liver test/hyperlipidemia. Other hx: IDDM type II, pt states informed he had kidney disease in Feb, 2020 then ESRD diagnosed 05/09/20 with hemodialysis M/W/F,neuropathy bilateral feet, L foot ulcer with debridements, L eye blindness d/t diabetic retinopathy, ischemic cardiomyopathy, anasarca/lower leg edema. Last Myocardial Infarction Date:: 03/30/2018 History of Any Multi-Drug Resistant Organisms: None Reported Past Surgical History: Heart Catheterization With Stent Additional Past Surgical History / Comment(s): 05/17/20 R subclavian hemodialysis catheter, debridements L foot wound, R eye surgery-pt believes to remove cataract, SEAN fistula Additional Past Anesthesia/Blood Transfusion Reaction / Comment(s): During 3rd debridement L foot ulcer Date of Last Stent Placement:: 03/31/2018 Past Psychological History: No Psychological Hx Reported Smoking Status: Never smoker Past Alcohol Use History: None Reported Past Drug Use History: None Reported - Past Family History Mother Family Medical History: Diabetes Mellitus, Hyperlipidemia, Hypertension Father Family Medical History: Diabetes Mellitus, Hypertension Medications and Allergies Home Medications Medication Instructions Recorded Confirmed Type Nitroglycerin Sl Tabs [Nitrostat] 0.4 mg SL Q5M PRN 05/09/20 08/28/24 History NIFEdipine XL [Procardia XL] 90 mg PO DAILY 03/08/24 08/28/24 History Sacubitril/Valsartan [Entresto 24 1 tab PO BID 06/16/24 08/28/24 History mg-26 mg Tablet] hydrALAZINE HCL [Apresoline] 50 mg PO TID-W/MEALS 06/16/24 08/28/24 History Aspirin 81 mg PO DAILY #30 tab 06/17/24 08/28/24 Rx Pantoprazole Sodium [Protonix] 20 mg PO DAILY 08/28/24 08/28/24 History carvediloL [Coreg] 25 mg PO BID 08/28/24 08/28/24 History cloNIDine 0.3 MG/24HR PATCH 1 patch TRANSDERM SA 08/28/24 08/28/24 History [Catapres-TTS] Allergies Allergy/AdvReac Type Severity Reaction Status Date / Time nickel Allergy Rash/Hives Verified 06/16/24 08:15 Physical Exam Vitals: Vital Signs Temp Pulse Resp BP Pulse Ox FiO2 08/28/24 15:30 54 L 27 H 73/50 96 08/28/24 15:28 99.5 F 54 L 28 H 71/47 95 50 08/28/24 14:30 50 08/28/24 14:12 113/80 08/28/24 14:10 51 L 13 62/46 99 08/28/24 14:08 51 L 24 66/49 08/28/24 14:06 51 L 24 68/45 99 08/28/24 14:04 52 L 27 H 63/45 100 08/28/24 14:02 46 L 20 63/46 08/28/24 13:58 52 L 26 H 89/63 08/28/24 13:56 52 L 21 69/50 100 08/28/24 13:54 52 L 25 H 61/49 100 08/28/24 13:52 52 L 26 H 64/48 08/28/24 13:50 53 L 25 H 66/47 100 08/28/24 13:48 53 L 25 H 62/50 100 08/28/24 13:46 54 L 27 H 72/47 08/28/24 13:44 27 L 0 L 74/49 08/28/24 13:42 53 L 20 72/52 100 08/28/24 13:40 53 L 20 68/49 100 08/28/24 13:38 55 L 22 73/52 100 08/28/24 13:36 56 L 18 70/51 99 08/28/24 13:34 56 L 23 69/52 100 08/28/24 13:32 95.5 F L 56 L 23 71/53 08/28/24 13:30 57 L 21 71/53 100 08/28/24 13:28 57 L 21 71/54 100 08/28/24 13:26 57 L 21 71/54 100 08/28/24 13:24 58 L 20 95/75 100 08/28/24 13:22 58 L 20 71/57 08/28/24 13:20 57 L 20 71/57 99 08/28/24 13:18 57 L 20 75/54 100 08/28/24 13:16 56 L 20 75/60 100 08/28/24 13:14 56 L 20 75/59 100 08/28/24 13:10 59 L 20 75/59 100 08/28/24 13:05 60 20 90/61 100 08/28/24 12:55 61 20 93/69 100 08/28/24 12:50 61 20 90/69 100 08/28/24 12:45 61 20 91/69 100 08/28/24 12:40 61 20 90/68 100 08/28/24 12:35 62 20 88/70 100 08/28/24 12:30 62 20 91/65 100 08/28/24 12:25 63 20 97/64 99 08/28/24 12:20 63 20 79/63 100 08/28/24 12:15 63 20 83/67 100 08/28/24 12:10 64 20 86/64 100 08/28/24 12:05 92.1 F L 64 20 86/64 100 08/28/24 12:00 64 20 81/24 100 08/28/24 11:55 65 20 81/67 98 08/28/24 11:50 65 20 80/62 100 08/28/24 11:45 65 20 80/56 100 08/28/24 11:40 65 20 85/62 99 08/28/24 11:10 100 08/28/24 10:50 98 20 175/96 97 08/28/24 10:32 60 20 103/92 98 08/28/24 10:21 64 20 69/51 08/28/24 10:10 100 08/28/24 10:02 100 08/28/24 09:57 73 15 151/130 08/28/24 09:41 56 L 5 L 74/56 56 L Intake and Output 08/28/24 08/28/24 08/28/24 06:59 14:59 22:59 Intake Total 56.775 Balance 56.775 Intake: Intake, IV Titration 56.775 Amount Norepinephrine 4 mg In 56.775 Sodium Chloride 0.9% 250 ml @ 0.03 MCG/KG/MIN 6. 481 mls/hr IV .Q24H ONE Rx#:[id number] Other: Weight 56.699 kg Currently intubated on the mechanical ventilator, sedated. Orogastric and orotracheal tube are both in place. Head exam was generally normal. The left cornea is scarred. Mucous membranes were moist. Head is atraumatic and normocephalic. Neck was supple and without jugular venous distension, thyromegaly, or carotid bruits. Carotids were easily palpable bilaterally. There was no adenopathy. Lungs were clear to auscultation and percussion, and with normal diaphragmatic excursion. No wheezes or rales were noted. Cardiac exam revealed the PMI to be normally situated and sized. The rhythm was regular and no extrasystoles were noted during several minutes of auscultation. The first and second heart sounds were normal and physiologic splitting of the second heart sound was noted. There were no murmurs, rubs, clicks, or gallops. Abdominal exam revealed normal bowel sounds. The abdomen was soft, non-tender, and without masses, organomegaly, or appreciable enlargement of the abdominal aorta. Examination of the extremities revealed easily palpable radial, femoral and pedal pulses. There was no cyanosis, clubbing or edema. The patient has an AV fistula in the right upper extremity Examination of the skin revealed no evidence of significant rashes, suspicious appearing nevi or other concerning lesions. Neurologically the patient is unresponsive, currently on low-dose propofol. Motor and sensory function cannot be assessed. The patient has a vitreal/corneal scar in his left eye. Pupil in the right is around 3 mm in size, sluggishly reactive to light. No nystagmus. Results - Laboratory Findings CBC and BMP: 08/28/24 10:14 08/28/24 10:14 ABG ABG pH 7.39 (7.35-7.45) 08/28/24 11:18 ABG pCO2 40 mmHg (35-45) 08/28/24 11:18 ABG pO2 >420 mmHg (83-108) H 08/28/24 11:18 ABG O2 Saturation 100.0 % (94-97) H 08/28/24 11:18 PT/INR, D-dimer PT 18.5 sec (10.0-12.5) H 08/28/24 10:14 INR 1.8 (<1.2) H 08/28/24 10:14 D-Dimer 9.08 mg/L FEU (<0.60) H 08/28/24 10:14 Abnormal lab findings: Abnormal Labs 08/28/24 08/28/24 08/28/24 10:14 10:14 10:14 WBC 31.6 H RBC 3.51 L Hgb 11.0 L Hct 35.4 L MCV 100.9 H RDW 18.3 H Plt Count 61 L Neutrophils # (Manual) 27.40 H Monocytes # (Manual) 1.58 H Metamyelocytes # (Man) 0.95 H Myelocytes # (Manual) 0.63 H PT 18.5 H INR 1.8 H APTT 35.7 H D-Dimer 9.08 H ABG pO2 ABG Total CO2 ABG O2 Saturation Hemoglobin Sodium 135 L Potassium 6.0 H Carbon Dioxide 20 L BUN 31 H Creatinine 7.48 H* Glucose 101 H POC Glucose (mg/dL) Plasma Lactic Acid Robb Calcium 8.2 L Troponin I 08/28/24 08/28/24 08/28/24 10:14 11:18 13:00 WBC RBC Hgb Hct MCV RDW Plt Count Neutrophils # (Manual) Monocytes # (Manual) Metamyelocytes # (Man) Myelocytes # (Manual) PT INR APTT D-Dimer ABG pO2 >420 H ABG Total CO2 25 H ABG O2 Saturation 100.0 H Hemoglobin 9.6 L Sodium Potassium Carbon Dioxide BUN Creatinine Glucose POC Glucose (mg/dL) Plasma Lactic Acid Robb 8.0 H* Calcium Troponin I 0.072 H* 08/28/24 08/28/24 14:20 14:22 WBC RBC Hgb Hct MCV RDW Plt Count Neutrophils # (Manual) Monocytes # (Manual) Metamyelocytes # (Man) Myelocytes # (Manual) PT INR APTT D-Dimer ABG pO2 ABG Total CO2 ABG O2 Saturation Hemoglobin Sodium Potassium Carbon Dioxide BUN Creatinine Glucose POC Glucose (mg/dL) 45 L* 143 H Plasma Lactic Acid Robb Calcium Troponin I - Diagnostic Findings Chest x-ray: image reviewed CT scan - chest: image reviewed Assessment and Plan Plan: Acute cardiopulmonary arrest and the patient had PEA cardiac arrest x 3 and th ose were witnessed arrest in the emergency department and the downtime was 2 minutes, 6 minutes and 7 minutes respectively and the patient received epinephrine, CPR, bicarb and calcium. Exact cause is not clear. Altered mentation, negative CAT scan of the brain at the time of admission Acute hypoxic respiratory failure, currently intubated on mechanical ventilator. Hyperkalemia with a potassium level of 6.0. No significant EKG changes. The T waves are somewhat hyperacute and the patient was given calcium and bicarb. Awaiting follow-up potassium levels. Acute hypotension, postcardiac arrest. Could be cardiogenic in nature. Could be hypovolemic and the patient received a total of 2 L of of IV fluids. Currently on low-dose norepinephrine Acute leukocytosis, rule out reactive, rule out sepsis/infection Acute leukocytosis postcardiac arrest End stage renal disease maintained on MWF hemodialysis schedule, last had dialysis was incomplete, performed on 08/27/2024 Hypertension, history of Coronary artery disease with prior PCI. Ischemic cardiomyopathy EF 45-50% Chronic diastolic heart failure Diabetes mellitus type 2 Anemia of chronic disease Gastroesophageal reflux disease Diabetic peripheral neuropathy Dyslipidemia Plan Continue vent support and necessary ventilator changes will be done the patient will be gradually weaned off his FiO2 Keep the patient on a low-dose propofol and titrate the dose to maintenance x- ray with mechanical ventilator Repeat electrolytes including potassium level Give another liter of bolus and gradual wean off the pressors Repeat echocardiogram Monitor cardiac enzymes Monitor lactic acid level Given IV Rocephin and vancomycin in the emergency department and the same antibiotics will be continued pending further cultures Obtain blood cultures Nephrology consultation Cardiology consultation May need neurology consultation postcardiac arrest IV Protonix Heparin subcu for DVT prophylaxis Continue aspirin and the rest of the cardiac medication will be discontinued for now Insulin sliding scale coverage Monitor the white cell count Will continue to follow make further recommendations based on his progress. Intrapleural catheter was established in the emergency department. Condition is critical.
--- NOTE | 2024-08-28 15:56 | P.PCN ---
Date of Procedure: 08/28/24 Preoperative Diagnosis: Cardiac arrest Postoperative Diagnosis: Cardiac arrest Procedure(s) Performed: Central line insertion Anesthesia: local Surgeon: Lauren Garcia Estimated Blood Loss (ml): 0 Condition: critical Disposition: ICU Operative Findings: Indication: Hemodynamic monitoring/Intravenous access. A time-out was completed verifying correct patient, procedure, site, positioning, and implant(s) or special equipment if applicable. The patient was placed in a dependent position appropriate for triple lumen catheter placement based on the vein to be cannulated. The patient's right femoral area was prepped and draped in sterile fashion. 1% Lidocaine was used to anesthetize the surrounding skin area. A triple lumen 9F Cordis catheter was introduced into the femoral vein using Seldinger technique. The catheter was threaded smoothly over the guide wire and appropriate blood return was obtained. Each lumen of the catheter was evacuated of air and flushed with sterile saline. The catheter was then sutured in place to the skin and a sterile dressing applied. Perfusion to the extremity distal to the point of catheter insertion was checked and found to be adequate.
[2024-08-28 16:52] LABS: Potassium 6.9 mmol/L (3.5-5.1)
[2024-08-28 16:58] LABS: ABG Base Excess -5.8 mmol/L; ABG HCO3 19 mmol/L (21-25); ABG Oxygen Saturation 99.8 % (94-97); ABG PCO2 36 mmHg (35-45); ABG PH 7.34 (7.35-7.45); ABG PO2 226 mmHg (83-108); ABG TCO2 20 mmol/L (19-24); Allen Test Performed? Yes
[2024-08-28] MEDS: VASOPRESSIN 20 UNIT in SODIUM CHLORIDE 0.9% 50 ML IV SCH (17:21)
[2024-08-28] MEDS: SODIUM BICARB 8.4% 50 ML SYR (1 MEQ/ML) IV STA (17:30)
[2024-08-28] MEDS: DEXTROSE 50% SYRINGE 50 ML IVP STA (17:30)
[2024-08-28] MEDS: INSULIN REGULAR 100 UNIT/ML VIAL (IV) IV ONE (17:31)
[2024-08-28] MEDS: PIPERACILLIN-TAZOBACTAM 3.375 GM in SODIUM CHLORIDE 0.9% 100 ML IVPB SCH ×2 (21:43→22:34)
[2024-08-28] MEDS: VANCOMYCIN 1,000 MG in SODIUM CHLORIDE 0.9% 250 ML IVPB ONE (22:34)
[2024-08-28 22:50] LABS: Anisocytosis Slight; Basophils # (A) 0.1 k/uL (0-0.2); Basophils % (A) 0 %; Eosinophils # (A) 0.1 k/uL (0-0.7); Eosinophils % (A) 0 %; HCT 37.6 % (39.0-53.0); HGB 11.9 gm/dL (13.0-17.5); Hypochromasia Moderate; Lymphocytes # (A) 1.3 k/uL (1.0-4.8); Lymphocytes % (A) 4 %; MCH 31.6 pg (25.0-35.0); MCHC 31.8 g/dL (31.0-37.0); MCV 99.5 fL (80.0-100.0); Macrocytosis Slight; Mean Platelet Volume 10.8; Monocytes % (A) 3 %; Neutrophils % (A) 92 %; RBC 3.77 m/uL (4.30-5.90); RDW 18.4 % (11.5-15.5); WBC 31.5 k/uL (3.8-10.6)
[2024-08-28] MEDS: CHLORHEXIDINE GLUCONATE 15 ML CUP MUCOUS MEM SCH (22:55)
[2024-08-28 23:10] LABS: ALT 179 U/L (4-49); AST 376 U/L (17-59); African American GFR (CKD) 18 (>60 ml/min/1.73 sqM); Albumin 3.4 g/dL (3.5-5.0); Alkaline Phosphatase 68 U/L (38-126); Anion Gap 6 mmol/L; Blood Urea Nitrogen 23 mg/dL (9-20); Calcium 7.9 mg/dL (8.4-10.2); Carbon Dioxide 29 mmol/L (22-30); Chloride 100 mmol/L (98-107); Glucose 72 mg/dL (74-99); Non-African American GFR(CKD) 15 (>60 ml/min/1.73 sqM); Potassium 4.7 mmol/L (3.5-5.1); Sodium 135 mmol/L (137-145); Total Bilirubin 1.5 mg/dL (0.2-1.3); Total Protein 6.5 g/dL (6.3-8.2)
--- NOTE | 2024-08-28 23:10 | P.CONS ---
History of Present Illness - Reason for Consult Consult date: 08/28/24 Sepsis Requesting physician: Filipe Galan - Chief Complaint Weakness and unresponsive x 1 day - History of Present Illness Patient is a 44-year-old -Israeli male with a past medical history significant for hypertension hyperlipidemia NH coronary artery disease end-stage renal disease on hemodialysis through the right upper extremity AV fistula patient has been brought into the hospital for evaluation of mental status changes in this patient symptom pain started the day of presentation to the hospital upon arrival to the ER the patient stop breathing with no pulses patient was resuscitated and intubated patient on presentation to the hospital was hypothermic with a temperature of 92.1 F and was nontachycardic did have hypotension patient did have a white count of 31.6 with a left shift potassium 6.9 creatinine of 7.48 lactic acid 5.1 liver enzymes normal initial chest x-ray ET tube 6.1 cm by the cornea jh cardiomegaly partially consulted opacity in the right mid and lower lung he also have a CT angiogram of the chest no evidence for PE small bibasilar infiltrate and effusion patient did receive a dose of Rocephin and started on vancomycin infectious disease was consulted for further management of antibiotic therapy most information has been obtained from review the chart talking with the at the bedside that when the patient had been complaining of weak since yesterday no clear history of any fever or chills at home no vomiting diarrhea abdominal pain or constipation reported Review of Systems Positive points has been mentioned in HPI complete review could not be obtained because patient intubated on the vent Past Medical History Past Medical History: Coronary Artery Disease (CAD), Heart Failure, Eye Disorder, GERD/Reflux, Hyperlipidemia, Hypertension, Myocardial Infarction ([place]), Renal Disease, Respiratory Disorder Additional Past Medical History / Comment(s): Pt recently admitted to [facility] on 05/09/20 with acute on chronic CHF/amyloidosis with generalized anasarca/acute on chronic kidney injury/acute anemia/advanced CAD/valvular disease/severe pulmonary htn/abnormal liver test/hyperlipidemia. Other hx: IDDM type II, pt states informed he had kidney disease in Feb, 2020 then ESRD diagnosed 05/09/20 with hemodialysis M/W/F,neuropathy bilateral feet, L foot ulcer with debridements, L eye blindness d/t diabetic retinopathy, ischemic cardiomyopathy, anasarca/lower leg edema. Last Myocardial Infarction Date:: 03/30/2018 History of Any Multi-Drug Resistant Organisms: None Reported Past Surgical History: Heart Catheterization With Stent Additional Past Surgical History / Comment(s): 05/17/20 R subclavian hemodialysis catheter, debridements L foot wound, R eye surgery-pt believes to remove cataract, SEAN fistula Additional Past Anesthesia/Blood Transfusion Reaction / Comm: During 3rd debridement L foot ulcer Date of Last Stent Placement:: 03/31/2018 Past Psychological History: No Psychological Hx Reported Smoking Status: Never smoker Past Alcohol Use History: None Reported Past Drug Use History: None Reported - Past Family History Mother Family Medical History: Diabetes Mellitus, Hyperlipidemia, Hypertension Father Family Medical History: Diabetes Mellitus, Hypertension Medications and Allergies Home Medications Medication Instructions Recorded Confirmed Type Nitroglycerin Sl Tabs [Nitrostat] 0.4 mg SL Q5M PRN 05/09/20 08/28/24 History NIFEdipine XL [Procardia XL] 90 mg PO DAILY 03/08/24 08/28/24 History Sacubitril/Valsartan [Entresto 24 1 tab PO BID 06/16/24 08/28/24 History mg-26 mg Tablet] hydrALAZINE HCL [Apresoline] 50 mg PO TID-W/MEALS 06/16/24 08/28/24 History Aspirin 81 mg PO DAILY #30 tab 06/17/24 08/28/24 Rx Pantoprazole Sodium [Protonix] 20 mg PO DAILY 08/28/24 08/28/24 History carvediloL [Coreg] 25 mg PO BID 08/28/24 08/28/24 History cloNIDine 0.3 MG/24HR PATCH 1 patch TRANSDERM SA 08/28/24 08/28/24 History [Catapres-TTS] Allergies Allergy/AdvReac Type Severity Reaction Status Date / Time nickel Allergy Rash/Hives Verified 06/16/24 08:15 Physical Exam Vitals: Vital Signs Temp Pulse Resp BP Pulse Ox FiO2 08/28/24 13:32 95.5 F L 08/28/24 13:10 59 L 20 75/59 100 08/28/24 13:05 60 20 90/61 100 08/28/24 12:55 61 20 93/69 100 08/28/24 12:50 61 20 90/69 100 08/28/24 12:45 61 20 91/69 100 08/28/24 12:40 61 20 90/68 100 08/28/24 12:35 62 20 88/70 100 08/28/24 12:30 62 20 91/65 100 08/28/24 12:25 63 20 97/64 99 08/28/24 12:20 63 20 79/63 100 08/28/24 12:15 63 20 83/67 100 08/28/24 12:10 64 20 86/64 100 08/28/24 12:05 92.1 F L 64 20 86/64 100 08/28/24 12:00 64 20 81/24 100 08/28/24 11:55 65 20 81/67 98 08/28/24 11:50 65 20 80/62 100 08/28/24 11:45 65 20 80/56 100 08/28/24 11:40 65 20 85/62 99 08/28/24 11:10 100 08/28/24 10:50 98 20 175/96 97 08/28/24 10:32 60 20 103/92 98 08/28/24 10:21 64 20 69/51 08/28/24 10:10 100 08/28/24 10:02 100 08/28/24 09:57 73 15 151/130 08/28/24 09:41 56 L 5 L 74/56 56 L Intake and Output 08/27/24 08/28/24 08/28/24 22:59 06:59 14:59 Intake Total 40.611 Balance 40.611 Intake: Intake, IV Titration 40.611 Amount Norepinephrine 4 mg In 40.611 Sodium Chloride 0.9% 250 ml @ 0.03 MCG/KG/MIN 6. 481 mls/hr IV .Q24H ONE Rx#:[id number] Other: Weight 56.699 kg GENERAL DESCRIPTION: Middle-age male intubated on the vent HEENT: Shows Pallor , no scleral icterus. Oral mucous membrane is dry. NECK: Trachea central, no thyromegaly. LUNGS: Unlabored breathing. Decreased breath sounds at the base HEART: S1, S2, regular rate and rhythm. No loud murmur ABDOMEN: Soft, no tenderness , guarding or rigidity, no organomegaly EXTREMITIES: No edema of feet. SKIN: No rash, no masses palpable. NEUROLOGICAL: The patient is sedated on the vent Results CBC & Chem 7: 08/28/24 10:14 08/28/24 15:59 Labs: Abnormal Lab Results - Last 24 Hours (Table) 08/28/24 08/28/24 08/28/24 Range/Units 10:14 10:14 10:14 WBC 31.6 H (3.8-10.6) k/uL RBC 3.51 L (4.30-5.90) m/uL Hgb 11.0 L (13.0-17.5) gm/dL Hct 35.4 L (39.0-53.0) % MCV 100.9 H (80.0-100.0) fL RDW 18.3 H (11.5-15.5) % Plt Count 61 L (150-450) k/uL Neutrophils # (Manual) 27.40 H (1.3-7.7) k/uL Monocytes # (Manual) 1.58 H (0-1.0) k/uL Metamyelocytes # (Man) 0.95 H (0) k/uL Myelocytes # (Manual) 0.63 H (0) k/uL PT 18.5 H (10.0-12.5) sec INR 1.8 H (<1.2) APTT 35.7 H (22.0-30.0) sec D-Dimer 9.08 H (<0.60) mg/L FEU ABG pO2 (83-108) mmHg ABG Total CO2 (19-24) mmol/L ABG O2 Saturation (94-97) % Hemoglobin (13.0-17.5) gm/dL Sodium 135 L (137-145) mmol/L Potassium 6.0 H (3.5-5.1) mmol/L Carbon Dioxide 20 L (22-30) mmol/L BUN 31 H (9-20) mg/dL Creatinine 7.48 H* (0.66-1.25) mg/dL Glucose 101 H (74-99) mg/dL Plasma Lactic Acid Robb (0.7-2.0) mmol/L Calcium 8.2 L (8.4-10.2) mg/dL Troponin I (0.000-0.034) ng/mL 08/28/24 08/28/24 08/28/24 Range/Units 10:14 11:18 13:00 WBC (3.8-10.6) k/uL RBC (4.30-5.90) m/uL Hgb (13.0-17.5) gm/dL Hct (39.0-53.0) % MCV (80.0-100.0) fL RDW (11.5-15.5) % Plt Count (150-450) k/uL Neutrophils # (Manual) (1.3-7.7) k/uL Monocytes # (Manual) (0-1.0) k/uL Metamyelocytes # (Man) (0) k/uL Myelocytes # (Manual) (0) k/uL PT (10.0-12.5) sec INR (<1.2) APTT (22.0-30.0) sec D-Dimer (<0.60) mg/L FEU ABG pO2 >420 H (83-108) mmHg ABG Total CO2 25 H (19-24) mmol/L ABG O2 Saturation 100.0 H (94-97) % Hemoglobin 9.6 L (13.0-17.5) gm/dL Sodium (137-145) mmol/L Potassium (3.5-5.1) mmol/L Carbon Dioxide (22-30) mmol/L BUN (9-20) mg/dL Creatinine (0.66-1.25) mg/dL Glucose (74-99) mg/dL Plasma Lactic Acid Robb 8.0 H* (0.7-2.0) mmol/L Calcium (8.4-10.2) mg/dL Troponin I 0.072 H* (0.000-0.034) ng/mL Assessment and Plan (1) Pneumonia Current Visit: Yes Status: Acute Code(s): J18.9 - PNEUMONIA, UNSPECIFIED ORGANISM SNOMED Code(s): 895605339 (2) Sepsis Current Visit: Yes Status: Acute Code(s): A41.9 - SEPSIS, UNSPECIFIED ORGANISM SNOMED Code(s): 24024164 Plan: 1patient presenting to the hospital with decreased level of responsiveness subsequently the patient did have a cardiac arrest requiring resuscitation did have significant elevated white count hypotension elevated lactic acid meeting currently for SIRS/sepsis with concern for possible aspiration pneumonitis abdo kash source less likely but not entirely excluded 2-patient is currently covered with vancomycin and Zosyn to cover for the gram- negative 3-once hemodynamically stable recommend to obtain a CT of abdomen pelvis at the bedside multiple question concern answered We will follow on clinical condition and cultures to further adjust medication if needed Thank you for this consultation we will follow the patient along with you Dictation was produced using [employer] dictation software. please excuse any grammatical, word or spelling errors.
[2024-08-28] MEDS: CALCIUM GLUCONATE IN NACL 2 GM in SALINE 1 100ML.BAG IVPB ONE (23:18)
[2024-08-29 00:36] LABS: Glucose,Whole Blood 85 mg/dL (70-110)
[2024-08-29 00:36] LABS: Glucose,Whole Blood 75 mg/dL (70-110)
[2024-08-29 00:38] LABS: Hypersegmented Neutrophils Present; Toxic Vacuolation Present
[2024-08-29 00:40] LABS: Crenated RBC Present; Target Cells Present
[2024-08-29 00:41] LABS: Large Platelets Present
[2024-08-29 00:44] LABS: Platelet Count 54 k/uL (150-450)
[2024-08-29 04:28] LABS: Glucose,Whole Blood 84 mg/dL (70-110)
[2024-08-29 04:36] LABS: Anisocytosis Slight; Basophils # (A) 0.1 k/uL (0-0.2); Basophils % (A) 0 %; Eosinophils % (A) 0 %; HCT 34.4 % (39.0-53.0); Hypochromasia Slight; Lymphocytes # (A) 1.2 k/uL (1.0-4.8); Lymphocytes % (A) 4 %; MCH 31.5 pg (25.0-35.0); MCV 98.5 fL (80.0-100.0); Macrocytosis Slight; Mean Platelet Volume 12.3; Monocytes # (A) 0.7 k/uL (0-1.0); Monocytes % (A) 2 %; Neutrophils % (A) 93 %; RBC 3.49 m/uL (4.30-5.90); RDW 18.2 % (11.5-15.5); WBC 30.1 k/uL (3.8-10.6)
[2024-08-29 04:53] LABS: Platelet Count 66 k/uL (150-450)
[2024-08-29 04:58] LABS: ALT 140 U/L (4-49); AST 218 U/L (17-59); African American GFR (CKD) 23 (>60 ml/min/1.73 sqM); Alkaline Phosphatase 51 U/L (38-126); Anion Gap 5 mmol/L; Blood Urea Nitrogen 22 mg/dL (9-20); Carbon Dioxide 19 mmol/L (22-30); Chloride 114 mmol/L (98-107); Glucose 67 mg/dL (74-99); Non-African American GFR(CKD) 20 (>60 ml/min/1.73 sqM); Potassium 3.5 mmol/L (3.5-5.1); Sodium 138 mmol/L (137-145); Total Bilirubin 1.1 mg/dL (0.2-1.3); Total Protein 4.4 g/dL (6.3-8.2)
[2024-08-29 05:08] LABS: Calcium 5.4 mg/dL (8.4-10.2)
[2024-08-29 05:13] LABS: Dohle Bodies Present; Hypersegmented Neutrophils Present
[2024-08-29 05:14] LABS: Toxic Vacuolation Present
[2024-08-29 05:15] LABS: Target Cells Present
[2024-08-29 05:46] LABS: Glucose,Whole Blood 105 mg/dL (70-110)
[2024-08-29 06:14] LABS: ABG HCO3 31 mmol/L (21-25); ABG Oxygen Saturation 99.4 % (94-97); ABG PCO2 45 mmHg (35-45); ABG PH 7.45 (7.35-7.45); ABG PO2 147 mmHg (83-108); ABG TCO2 32 mmol/L (19-24); Allen Test Performed? Yes
[2024-08-29] MEDS: CALCIUM GLUCONATE IN NACL 2 GM in SALINE 1 100ML.BAG IVPB ONE (06:23)
--- NOTE | 2024-08-29 06:26 | XR ---
EXAMINATION TYPE: XR chest 1V portable DATE OF EXAM: 08/29/2024 COMPARISON: 08/28/2024 HISTORY: Tube placement TECHNIQUE: Single frontal view of the chest is obtained. FINDINGS: The ET tube is 7.2 cm above the seth. There is an NG tube within the stomach. There is persistent moderate cardiomegaly. There has been interval decrease in the right lung pulmona ry vascular congestion/interstitial edema. There is no pleural effusion or pneumothorax. The osseous structures are intact IMPRESSION: ET tube 7.2 cm above the seth. NG tube within the stomach. Improved aeration in the ri ght lung as described above. Persistent cardiomegaly. [facility], , 08/29/2024 6:24 AM
[2024-08-29] MEDS: PANTOPRAZOLE 40 MG/10 ML VIAL IV SCH (07:53)
[2024-08-29] MEDS ORDERED: NON FORMULARY DRUG (Pantoprazole Sodium [Protonix] 20 MG Tablet) PO SCH (09:00)
--- NOTE | 2024-08-29 09:12 | P.NPCON ---
History of Present Illness - Reason for Consult end stage renal disease - History of Present Illness Reason for consultation: End-stage renal disease History of present illness: Patient is a 44-year-old male seen in renal consultation for end-stage renal disease. He is maintained on hemodialysis on Friday schedule. Patient is currently intubated and history was obtained mostly from the chart. It is noted the patient went to hemodialysis Friday and had no problems. He was brought to the hospital due to altered mental status and generalized weakness. Patient had cardiac arrest x 3 at the hospital and was given epinephrine. He was subsequently intubated and is currently in the ICU. He is off Levophed. Potassium was initially 6.0 but this was done after CPR. Repeat potassium was 6.9 and he underwent emergent hemodialysis yesterday. Potassium level this morning was 3.5. Patient has longstanding history of diabetes. Vital signs are stable. General: Resting in bed. HEENT: Intubated. LUNGS: Scattered rhonchi. HEART: Rate and Rhythm are regular. ABDOMEN: No distention. EXTREMITITES: No edema. Past Medical History Past Medical History: Coronary Artery Disease (CAD), Heart Failure, Eye Disorder, GERD/Reflux, Hyperlipidemia, Hypertension, Myocardial Infarction ([place]), Renal Disease, Respiratory Disorder Additional Past Medical History / Comment(s): Pt recently admitted to [facility] on 05/09/20 with acute on chronic CHF/amyloidosis with generalized anasarca/acute on chronic kidney injury/acute anemia/advanced CAD/valvular disease/severe pulmonary htn/abnormal liver test/hyperlipidemia. Other hx: IDDM type II, pt states informed he had kidney disease in Feb, 2020 then ESRD diagnosed 05/09/20 with hemodialysis M/W/F,neuropathy bilateral feet, L foot ulcer with debridements, L eye blindness d/t diabetic retinopathy, ischemic cardiomyopathy, anasarca/lower leg edema. Last Myocardial Infarction Date:: 03/30/2018 History of Any Multi-Drug Resistant Organisms: None Reported Past Surgical History: Heart Catheterization With Stent Additional Past Surgical History / Comment(s): 05/17/20 R subclavian hemodialysis catheter, debridements L foot wound, R eye surgery-pt believes to remove cataract, SEAN fistula Additional Past Anesthesia/Blood Transfusion Reaction / Comment(s): During 3rd debridement L foot ulcer Date of Last Stent Placement:: 03/31/2018 Past Psychological History: No Psychological Hx Reported Smoking Status: Never smoker Past Alcohol Use History: None Reported Past Drug Use History: None Reported - Past Family History Mother Family Medical History: Diabetes Mellitus, Hyperlipidemia, Hypertension Father Family Medical History: Diabetes Mellitus, Hypertension Medications and Allergies Home Medications Medication Instructions Recorded Confirmed Type Nitroglycerin Sl Tabs [Nitrostat] 0.4 mg SL Q5M PRN 05/09/20 08/28/24 History NIFEdipine XL [Procardia XL] 90 mg PO DAILY 03/08/24 08/28/24 History Sacubitril/Valsartan [Entresto 24 1 tab PO BID 06/16/24 08/28/24 History mg-26 mg Tablet] hydrALAZINE HCL [Apresoline] 50 mg PO TID-W/MEALS 06/16/24 08/28/24 History Aspirin 81 mg PO DAILY #30 tab 06/17/24 08/28/24 Rx Pantoprazole Sodium [Protonix] 20 mg PO DAILY 08/28/24 08/28/24 History carvediloL [Coreg] 25 mg PO BID 08/28/24 08/28/24 History cloNIDine 0.3 MG/24HR PATCH 1 patch TRANSDERM SA 08/28/24 08/28/24 History [Catapres-TTS] Allergies Allergy/AdvReac Type Severity Reaction Status Date / Time nickel Allergy Rash/Hives Verified 06/16/24 08:15 Physical Exam Vitals: Vital Signs Temp Pulse Pulse Resp BP BP Pulse Ox 08/29/24 09:00 78 24 112/64 99 08/29/24 08:45 78 21 99 08/29/24 08:30 79 21 98 08/29/24 08:15 80 23 99 08/29/24 08:00 99.9 F H 80 20 117/69 99 08/29/24 07:45 81 22 121/69 99 08/29/24 07:44 08/29/24 07:37 08/29/24 07:30 80 23 122/72 100 08/29/24 07:15 80 23 128/75 100 08/29/24 07:00 79 21 132/78 100 08/29/24 06:45 80 20 126/75 100 08/29/24 06:30 79 21 125/76 100 11/10/24 06:15 80 21 123/78 100 08/29/24 06:00 80 20 126/76 100 08/29/24 05:45 81 20 126/79 99 08/29/24 05:30 81 22 125/75 100 08/29/24 05:15 82 21 117/73 100 08/29/24 05:00 81 22 117/73 99 08/29/24 04:45 81 21 117/71 99 08/29/24 04:36 08/29/24 04:30 80 20 124/74 98 08/29/24 04:15 80 23 123/77 99 08/29/24 04:00 99.9 F H 80 23 112/72 99 08/29/24 03:45 79 20 109/71 99 08/29/24 03:30 79 21 106/69 99 08/29/24 03:15 79 20 107/68 99 08/29/24 03:00 78 20 107/69 99 08/29/24 02:45 78 20 105/70 99 08/29/24 02:30 78 20 105/68 99 08/29/24 02:15 78 20 108/69 99 08/29/24 02:00 78 21 111/71 99 08/29/24 01:45 78 17 107/70 99 08/29/24 01:30 77 16 100/67 98 08/29/24 01:15 77 21 107/69 98 08/29/24 01:00 77 20 102/69 98 08/29/24 00:45 76 20 105/69 98 08/29/24 00:37 08/29/24 00:30 76 20 103/70 98 08/29/24 00:15 76 20 110/74 98 08/29/24 00:08 98.6 F 76 20 110/74 98 08/29/24 00:00 76 21 116/73 98 08/28/24 23:45 76 24 124/81 98 08/28/24 23:30 76 22 103/76 97 08/28/24 23:15 75 20 117/75 98 08/28/24 23:00 75 20 122/78 99 08/28/24 22:55 97.3 F L 75 20 140/36 99 08/28/24 22:45 76 21 118/77 99 08/28/24 22:30 76 21 128/81 98 08/28/24 22:15 78 18 126/81 98 08/28/24 22:00 77 20 124/80 99 08/28/24 21:45 77 22 123/80 99 08/28/24 21:30 77 21 120/80 98 08/28/24 21:15 76 21 117/79 98 08/28/24 21:00 76 21 117/80 98 08/28/24 20:45 76 21 116/78 99 08/28/24 20:33 08/28/24 20:30 75 21 111/81 98 08/28/24 20:15 76 21 116/76 99 08/28/24 20:00 96.8 F L 76 21 109/74 99 08/28/24 19:45 75 21 106/71 99 08/28/24 19:30 75 20 107/72 98 08/28/24 19:15 75 22 104/71 99 08/28/24 19:00 75 21 107/69 98 08/28/24 18:45 75 22 111/73 99 08/28/24 18:30 76 23 113/71 99 08/28/24 18:15 75 25 H 110/70 100 08/28/24 18:00 72 24 102/72 100 08/28/24 17:45 62 27 H 88/62 100 08/28/24 17:30 61 21 78/55 100 08/28/24 17:15 58 L 24 78/56 100 08/28/24 17:00 57 L 25 H 87/52 99 08/28/24 16:45 56 L 23 75/51 99 08/28/24 16:30 55 L 28 H 67/48 97 08/28/24 16:24 08/28/24 16:15 55 L 27 H 70/47 98 08/28/24 16:00 96.3 F L 55 L 24 72/48 98 08/28/24 15:45 55 L 30 H 72/48 96 08/28/24 15:30 54 L 27 H 73/50 96 08/28/24 15:28 99.5 F 54 L 28 H 71/47 95 08/28/24 14:30 08/28/24 14:12 113/80 08/28/24 14:10 51 L 13 62/46 99 08/28/24 14:08 51 L 24 66/49 08/28/24 14:06 51 L 24 68/45 99 08/28/24 14:04 52 L 27 H 63/45 100 08/28/24 14:02 46 L 20 63/46 08/28/24 13:58 52 L 26 H 89/63 08/28/24 13:56 52 L 21 69/50 100 08/28/24 13:54 52 L 25 H 61/49 100 08/28/24 13:52 52 L 26 H 64/48 08/28/24 13:50 53 L 25 H 66/47 100 08/28/24 13:48 53 L 25 H 62/50 100 08/28/24 13:46 54 L 27 H 72/47 08/28/24 13:44 27 L 0 L 74/49 08/28/24 13:42 53 L 20 72/52 100 08/28/24 13:40 53 L 20 68/49 100 08/28/24 13:38 55 L 22 73/52 100 08/28/24 13:36 56 L 18 70/51 99 08/28/24 13:34 56 L 23 69/52 100 08/28/24 13:32 95.5 F L 56 L 23 71/53 08/28/24 13:30 57 L 21 71/53 100 08/28/24 13:28 57 L 21 71/54 100 08/28/24 13:26 57 L 21 71/54 100 08/28/24 13:24 58 L 20 95/75 100 08/28/24 13:22 58 L 20 71/57 08/28/24 13:20 57 L 20 71/57 99 08/28/24 13:18 57 L 20 75/54 100 08/28/24 13:16 56 L 20 75/60 100 08/28/24 13:14 56 L 20 75/59 100 08/28/24 13:10 59 L 20 75/59 100 08/28/24 13:05 60 20 90/61 100 08/28/24 12:55 61 20 93/69 100 08/28/24 12:50 61 20 90/69 100 08/28/24 12:45 61 20 91/69 100 08/28/24 12:40 61 20 90/68 100 08/28/24 12:35 62 20 88/70 100 08/28/24 12:30 62 20 91/65 100 08/28/24 12:25 63 20 97/64 99 08/28/24 12:20 63 20 79/63 100 08/28/24 12:15 63 20 83/67 100 08/28/24 12:10 64 20 86/64 100 08/28/24 12:05 92.1 F L 64 20 86/64 100 08/28/24 12:00 64 20 81/24 100 08/28/24 11:55 65 20 81/67 98 08/28/24 11:50 65 20 80/62 100 08/28/24 11:45 65 20 80/56 100 08/28/24 11:40 65 20 85/62 99 08/28/24 11:10 08/28/24 10:50 98 20 175/96 97 08/28/24 10:32 60 20 103/92 98 08/28/24 10:21 64 20 69/51 08/28/24 10:10 08/28/24 10:02 08/28/24 09:57 73 15 151/130 08/28/24 09:41 56 L 5 L 74/56 56 L FiO2 08/29/24 09:00 08/29/24 08:45 08/29/24 08:30 08/29/24 08:15 08/29/24 08:00 40 08/29/24 07:45 08/29/24 07:44 40 08/29/24 07:37 40 08/29/24 07:30 08/29/24 07:15 08/29/24 07:00 08/29/24 06:45 08/29/24 06:30 08/29/24 06:15 08/29/24 06:00 08/29/24 05:45 08/29/24 05:30 08/29/24 05:15 08/29/24 05:00 08/29/24 04:45 08/29/24 04:36 40 08/29/24 04:30 08/29/24 04:15 08/29/24 04:00 40 08/29/24 03:45 08/29/24 03:30 08/29/24 03:15 08/29/24 03:00 08/29/24 02:45 08/29/24 02:30 08/29/24 02:15 08/29/24 02:00 08/29/24 01:45 08/29/24 01:30 08/29/24 01:15 08/29/24 01:00 08/29/24 00:45 08/29/24 00:37 40 08/29/24 00:30 08/29/24 00:15 08/29/24 00:08 40 08/29/24 00:00 40 08/28/24 23:45 08/28/24 23:30 08/28/24 23:15 08/28/24 23:00 08/28/24 22:55 08/28/24 22:45 08/28/24 22:30 08/28/24 22:15 08/28/24 22:00 08/28/24 21:45 08/28/24 21:30 08/28/24 21:15 08/28/24 21:00 08/28/24 20:45 08/28/24 20:33 40 08/28/24 20:30 08/28/24 20:15 08/28/24 20:00 40 08/28/24 19:45 08/28/24 19:30 08/28/24 19:15 08/28/24 19:00 08/28/24 18:45 08/28/24 18:30 08/28/24 18:15 08/28/24 18:00 08/28/24 17:45 08/28/24 17:30 08/28/24 17:15 08/28/24 17:00 08/28/24 16:45 08/28/24 16:30 08/28/24 16:24 50 08/28/24 16:15 08/28/24 16:00 50 08/28/24 15:45 08/28/24 15:30 08/28/24 15:28 50 08/28/24 14:30 50 08/28/24 14:12 08/28/24 14:10 08/28/24 14:08 08/28/24 14:06 08/28/24 14:04 08/28/24 14:02 08/28/24 13:58 08/28/24 13:56 08/28/24 13:54 08/28/24 13:52 08/28/24 13:50 08/28/24 13:48 08/28/24 13:46 08/28/24 13:44 08/28/24 13:42 08/28/24 13:40 08/28/24 13:38 08/28/24 13:36 08/28/24 13:34 08/28/24 13:32 08/28/24 13:30 08/28/24 13:28 08/28/24 13:26 08/28/24 13:24 08/28/24 13:22 08/28/24 13:20 08/28/24 13:18 08/28/24 13:16 08/28/24 13:14 08/28/24 13:10 08/28/24 13:05 08/28/24 12:55 08/28/24 12:50 08/28/24 12:45 08/28/24 12:40 08/28/24 12:35 08/28/24 12:30 08/28/24 12:25 08/28/24 12:20 08/28/24 12:15 08/28/24 12:10 08/28/24 12:05 08/28/24 12:00 08/28/24 11:55 08/28/24 11:50 08/28/24 11:45 08/28/24 11:40 08/28/24 11:10 100 08/28/24 10:50 08/28/24 10:32 08/28/24 10:21 08/28/24 10:10 100 08/28/24 10:02 100 08/28/24 09:57 08/28/24 09:41 Intake and Output 08/28/24 08/29/24 08/29/24 22:59 06:59 14:59 Intake Total 1253.532 742.437 74.939 Output Total 2805 0 0 Balance -1551.468 742.437 74.939 Intake: Intake, IV Titration 453.532 742.437 74.939 Amount Calcium Gluconate in NaCl 100 2 gm In Saline 1 100ml. bag @ 100 mls/hr IVPB ONCE ONE Rx#:[id number] Norepinephrine 4 mg In 380.090 46.084 Sodium Chloride 0.9% 250 ml @ 0.03 MCG/KG/MIN 6. 481 mls/hr IV .Q24H ONE Rx#:[id number] Piperacillin-Tazobactam 3 100 .375 gm In Sodium Chloride 0.9% 100 ml @ 25 mls/hr IVPB Q12H [facility] Rx# :[id number] Vancomycin 1,000 mg In 375 Sodium Chloride 0.9% 250 ml @ 125 mls/hr IVPB ONCE ONE Rx#:[id number] Vasopressin 20 unit In 25.475 36.643 Sodium Chloride 0.9% 50 ml @ 0.03 UNITS/MIN 4.59 mls/hr IV .Q11H7M [facility] Rx# :[id number] propofoL 1,000 mg In 47.967 84.710 74.939 Empty Bag 1 bag @ 10 MCG/ KG/MIN 3.402 mls/hr IV . Q24H [facility] Rx#:[id number] Hemodialysis 800 Output: Urine 5 0 0 Hemodialysis 1800 Hemodialysis Net Amount 1000 Other: Voiding Method Indwelling Catheter Indwelling Catheter Indwelling Catheter # Bowel Movements 1 Weight 78 kg 80.1 kg ABP, PAP, CO, CI - Last 8 Hours Arterial Blood Pressure 119/56 Arterial Blood Pressure 110/54 Arterial Blood Pressure 109/54 Arterial Blood Pressure 117/55 Arterial Blood Pressure 122/56 Arterial Blood Pressure 133/60 Arterial Blood Pressure 138/61 Arterial Blood Pressure 143/61 Arterial Blood Pressure 152/64 Arterial Blood Pressure 157/65 Arterial Blood Pressure 148/63 Arterial Blood Pressure 146/64 Arterial Blood Pressure 145/63 Arterial Blood Pressure 147/64 Arterial Blood Pressure 149/65 Arterial Blood Pressure 150/66 Arterial Blood Pressure 141/62 Arterial Blood Pressure 141/61 Arterial Blood Pressure 140/61 Arterial Blood Pressure 147/63 Arterial Blood Pressure 149/67 Arterial Blood Pressure 136/63 Arterial Blood Pressure 134/62 Arterial Blood Pressure 132/60 Arterial Blood Pressure 132/60 Arterial Blood Pressure 131/60 Arterial Blood Pressure 130/60 Arterial Blood Pressure 129/59 Arterial Blood Pressure 133/61 Arterial Blood Pressure 136/62 Arterial Blood Pressure 133/62 Arterial Blood Pressure 126/58 Results - Lab Results Most recent lab results ABG pH 7.45 (7.35-7.45) 08/29/24 06:10 ABG pCO2 45 mmHg (35-45) 08/29/24 06:10 ABG pO2 147 mmHg (83-108) H 08/29/24 06:10 ABG HCO3 31 mmol/L (21-25) H 08/29/24 06:10 ABG O2 Saturation 99.4 % (94-97) H 08/29/24 06:10 Calcium 5.4 mg/dL (8.4-10.2) L* 08/29/24 04:30 Magnesium 1.6 mg/dL (1.6-2.3) 08/28/24 10:14 08/29/24 04:30 08/29/24 04:30 Assessment and Plan Plan: Assessment: 1. End-stage renal disease maintained on hemodialysis on Friday schedule. 2. Status post cardiac arrest x 3 August 28, 2024. No PE noted on CTA. 3. Hyperkalemia secondary to chronic kidney disease, post CPR improved postdialysis. 4. Hypocalcemia secondary to chronic kidney disease. Corrected calcium 7.0. Being replaced. 5. Hypertension with chronic kidney disease. 6. Chronic systolic CHF ejection fraction of 45 to 50% with moderate tricuspid regurgitation. 7. Chronic kidney disease mineral bone disease. 8. Leukocytosis. Questionable infectious versus reactive. On antibiotics. Plan: Hemodialysis tomorrow. Wean FiO2. Echocardiogram pending. Follow-up cultures. Thank you for the consultation. I will continue to follow the patient with you during his hospital stay.
[2024-08-29] MEDS: ASPIRIN 81 MG PO SCH (11:29)
[2024-08-29] MEDS: HEPARIN SODIUM,PORCINE 5,000 UNIT/ML 1 ML VIAL SQ SCH (11:29)
[2024-08-29 11:37] LABS: Glucose,Whole Blood 74 mg/dL (70-110)
[2024-08-29 11:40] LABS: Glucose,Whole Blood 85 mg/dL (70-110)
--- NOTE | 2024-08-29 11:51 | P.PN ---
Subjective Progress Note Date: 08/29/24 This is a 44-year-old male patient with incisional disease on hemodialysis. The patient came in to the emergency department this morning with altered mentation. Upon arrival, the patient went apneic and he went into a pulseless PEA rhythm. As such, he was started on resuscitation based on the ACLS protocol and the patient was given CPR and he was intubated. Noted he underwent a 2 additional episodes of cardiac arrest. Noted initial code was 42 minutes, subsequent codes for for 6 minutes and 7 minutes. During the second code, he received a total of 2 doses of epinephrine and a third code he was given 3 doses of epinephrine. He was also given calcium gluconate and bicarb. At the time of my arrival, there was return of spontaneous circulation and the patient was already on pressors and he was on norepinephrine running at 0.06 mcg/kg/min and he had received a total of 2 L of IV fluid bolus. He was in the mechanical ventilator assist- control mode with rate of 20, tidal volume of 350, FiO2 of 100% with a PEEP of 5. He is post intubation chest x-ray was reviewed and it showed cardiomegaly and volume overload. ET tube was adjusted. NG tube was in place. There was marked cardiomegaly. Subsequently, the patient was given a CT angiogram of the chest that showed no evidence of any pulmonary embolism. There was some small bibasilar infiltrates/effusions and marked cardiomegaly. CAT scan of the brain was also done that showed no acute intracranial bleed and the patient had scarr ing of his vitreous in his left globe. EKG was consistent with normal sinus rhythm. No ST segment elevations or depressions. The patient's white cell count was at 31.6. Hemoglobin was 11 and a platelet count was 61. INR was at 1.8 and a D-dimer was 9.0 with a PTT of 35. Postintubation blood gas showed a pH of 7.39 with a pCO2 of 48 pO2 of more than 420. BUN was 31 with a creatinine of 7.4 and a sodium level was at 135 and a potassium level was 6 with a chloride of 98 and a bicarb level of 20. Initial lactic acid level was at 8.0. proBNP level was more than 100,000 and the troponin was at 0.07. LFTs were essentially within normal limits. The patient was also started on low-dose propofol running at 10 mcg/kg/min. No additional information is available. According to the , the patient was confused yesterday after dialysis. No significant ultrafiltration was done. No reported fever. No falls. No head trauma. He has a functional AV fistula in the right upper extremity. The patient was in the hospital back in May 2024 and at that time, he was treated for shortness of breath and nausea and he continues to undergo hemodialysis with good results Comorbidities include end-stage renal disease on hemodialysis, diabetes mellitus type 2, diabetic neuropathy, coronary artery disease with prior PCI, ischemic cardiomyopathy with ejection fraction of 45 to 50% and the echocardiogram that was done on 03/08/2024 showed an EF of around 45 to 50% with global hypokinesis and severe thickness of the LV wall with small pericardial effusion.. She also has anemia of chronic disease and hyperlipidemia. On 08/29/2024, the patient is being seen for a follow-up. The patient is postcardiac arrest and the patient is currently in the intensive care and intubated on the mechanical ventilator. Noted his potassium level was also elevated and the patient was dialyzed yesterday. On today's evaluation, the patient is on propofol for sedation. Calm and comfortable. Synchronous with mechanical ventilator with a rate of 20, tidal volume of 350, FiO2 40% with a PEEP of 5. Blood gas showed a pH of 7.45 with a pCO2 of 47 and pO2 of 147. The patient was taken off norepinephrine at around midnight. He is also off vasopressin. IV fluids are currently at KVO. No urine output. Lactic acid level is dropped down to 1.3. Hemodialysis was done yesterday with a total of 1 L of ultrafiltration. Meanwhile, his white cell count remains elevated at 30 and the patient remains on a combination of Zosyn and vancomycin pending further cultures. BUN is 22 with a creatinine of 3.57. Potassium levels is down to 3.5. Bicarb is at 19. Sodium is at 138. The hemoglobin is stable at 11. Chest x-ray findings from today are essentially stable without any significant abnormalities. ET tube needs to be pushed in by around 2 cm. There is improved aeration in the right lung base along with ongoing cardiomegaly. No seizure activity. Objective - Vital Signs Vital signs: Vital Signs Temp 99.9 F H 08/29/24 08:00 Pulse 79 08/29/24 11:00 Resp 20 08/29/24 11:00 BP 109/65 08/29/24 09:30 Pulse Ox 99 08/29/24 11:00 FiO2 40 08/29/24 08:00 Intake & Output 08/28/24 08/29/24 08/29/24 18:59 06:59 18:59 Intake Total 588.627 0943.377 93.168 Output Total 5 2800 0 Balance 245.367 -997.623 93.168 Weight 78 kg 80.1 kg Intake: Intake, IV Titration 881.235 2381.377 93.168 Amount Calcium Gluconate in NaCl 100 2 gm In Saline 1 100ml. bag @ 100 mls/hr IVPB ONCE ONE Rx#:[id number] Norepinephrine 4 mg In 250.367 232.582 Sodium Chloride 0.9% 250 ml @ 0.03 MCG/KG/MIN 6. 481 mls/hr IV .Q24H ONE Rx#:[id number] Piperacillin-Tazobactam 3 100 .375 gm In Sodium Chloride 0.9% 100 ml @ 25 mls/hr IVPB Q12H [facility] Rx# :[id number] Vancomycin 1,000 mg In 375 Sodium Chloride 0.9% 250 ml @ 125 mls/hr IVPB ONCE ONE Rx#:[id number] Vasopressin 20 unit In 62.118 Sodium Chloride 0.9% 50 ml @ 0.03 UNITS/MIN 4.59 mls/hr IV .Q11H7M [facility] Rx# :[id number] propofoL 1,000 mg In 132.677 93.168 Empty Bag 1 bag @ 10 MCG/ KG/MIN 3.402 mls/hr IV . Q24H [facility] Rx#:[id number] Hemodialysis 800 Output: Urine 5 0 0 Hemodialysis 1800 Hemodialysis Net Amount 1000 Other: Voiding Method Indwelling Catheter Indwelling Catheter Indwelling Catheter # Bowel Movements 1 ABP, PAP, CO, CI - Last Documented Arterial Blood Pressure 119/54 - Exam Currently intubated on the mechanical ventilator, sedated. Orogastric and orotracheal tube are both in place. Head exam was generally normal. The left cornea is scarred. Mucous membranes were moist. Head is atraumatic and normocephalic. Neck was supple and without jugular venous distension, thyromegaly, or carotid bruits. Carotids were easily palpable bilaterally. There was no adenopathy. Lungs were clear to auscultation and percussion, and with normal diaphragmatic excursion. No wheezes or rales were noted. Cardiac exam revealed the PMI to be normally situated and sized. The rhythm was regular and no extrasystoles were noted during several minutes of auscultation. The first and second heart sounds were normal and physiologic splitting of the second heart sound was noted. There were no murmurs, rubs, clicks, or gallops. Abdominal exam revealed normal bowel sounds. The abdomen was soft, non-tender, and without masses, organomegaly, or appreciable enlargement of the abdominal a jeanne. Examination of the extremities revealed easily palpable radial, femoral and pedal pulses. There was no cyanosis, clubbing or edema. The patient has an AV fistula in the right upper extremity Examination of the skin revealed no evidence of significant rashes, suspicious appearing nevi or other concerning lesions. Neurologically the patient is unresponsive, currently on low-dose propofol. Mo tor and sensory function cannot be assessed. The patient has a vitreal/corneal scar in his left eye. Pupil in the right is around 3 mm in size, sluggishly reactive to light. No nystagmus. - Labs CBC & Chem 7: 08/29/24 04:30 08/29/24 04:30 Labs: Abnormal Lab Results - Last 24 Hours (Table) 08/28/24 08/28/24 08/28/24 Range/Units 13:00 14:20 14:22 WBC (3.8-10.6) k/uL RBC (4.30-5.90) m/uL Hgb (13.0-17.5) gm/dL Hct (39.0-53.0) % RDW (11.5-15.5) % Plt Count (150-450) k/uL Neutrophils # (1.3-7.7) k/uL ABG pH (7.35-7.45) ABG pO2 (83-108) mmHg ABG HCO3 (21-25) mmol/L ABG Total CO2 (19-24) mmol/L ABG O2 Saturation (94-97) % Hemoglobin (13.0-17.5) gm/dL Sodium (137-145) mmol/L Potassium (3.5-5.1) mmol/L Chloride (98-107) mmol/L Carbon Dioxide (22-30) mmol/L BUN (9-20) mg/dL Creatinine (0.66-1.25) mg/dL Glucose (74-99) mg/dL POC Glucose (mg/dL) 45 L* 143 H (70-110) mg/dL Plasma Lactic Acid Robb 8.0 H* (0.7-2.0) mmol/L Calcium (8.4-10.2) mg/dL Total Bilirubin (0.2-1.3) mg/dL AST (17-59) U/L ALT (4-49) U/L Troponin I (0.000-0.034) ng/mL Total Protein (6.3-8.2) g/dL Albumin (3.5-5.0) g/dL Procalcitonin (0.02-0.50) ng/mL 08/28/24 08/28/24 08/28/24 Range/Units 15:59 15:59 16:53 WBC (3.8-10.6) k/uL RBC (4.30-5.90) m/uL Hgb (13.0-17.5) gm/dL Hct (39.0-53.0) % RDW (11.5-15.5) % Plt Count (150-450) k/uL Neutrophils # (1.3-7.7) k/uL ABG pH 7.34 L (7.35-7.45) ABG pO2 226 H (83-108) mmHg ABG HCO3 19 L (21-25) mmol/L ABG Total CO2 (19-24) mmol/L ABG O2 Saturation 99.8 H (94-97) % Hemoglobin 11.3 L (13.0-17.5) gm/dL Sodium (137-145) mmol/L Potassium 6.9 H* (3.5-5.1) mmol/L Chloride (98-107) mmol/L Carbon Dioxide (22-30) mmol/L BUN (9-20) mg/dL Creatinine (0.66-1.25) mg/dL Glucose (74-99) mg/dL POC Glucose (mg/dL) (70-110) mg/dL Plasma Lactic Acid Robb 10.6 H* (0.7-2.0) mmol/L Calcium (8.4-10.2) mg/dL Total Bilirubin (0.2-1.3) mg/dL AST (17-59) U/L ALT (4-49) U/L Troponin I (0.000-0.034) ng/mL Total Protein (6.3-8.2) g/dL Albumin (3.5-5.0) g/dL Procalcitonin (0.02-0.50) ng/mL 08/28/24 08/28/24 08/28/24 Range/Units 19:04 22:41 22:41 WBC 31.5 H (3.8-10.6) k/uL RBC 3.77 L (4.30-5.90) m/uL Hgb 11.9 L (13.0-17.5) gm/dL Hct 37.6 L (39.0-53.0) % RDW 18.4 H (11.5-15.5) % Plt Count 54 L (150-450) k/uL Neutrophils # 29.0 H (1.3-7.7) k/uL ABG pH (7.35-7.45) ABG pO2 (83-108) mmHg ABG HCO3 (21-25) mmol/L ABG Total CO2 (19-24) mmol/L ABG O2 Saturation (94-97) % Hemoglobin (13.0-17.5) gm/dL Sodium 135 L (137-145) mmol/L Potassium (3.5-5.1) mmol/L Chloride (98-107) mmol/L Carbon Dioxide (22-30) mmol/L BUN 23 H (9-20) mg/dL Creatinine 4.46 H (0.66-1.25) mg/dL Glucose 72 L (74-99) mg/dL POC Glucose (mg/dL) (70-110) mg/dL Plasma Lactic Acid Robb 5.1 H* (0.7-2.0) mmol/L Calcium 7.9 L (8.4-10.2) mg/dL Total Bilirubin 1.5 H (0.2-1.3) mg/dL AST 376 H (17-59) U/L ALT 179 H (4-49) U/L Troponin I (0.000-0.034) ng/mL Total Protein (6.3-8.2) g/dL Albumin 3.4 L (3.5-5.0) g/dL Procalcitonin (0.02-0.50) ng/mL 08/28/24 08/29/24 08/29/24 Range/Units 22:41 04:30 04:30 WBC 30.1 H (3.8-10.6) k/uL RBC 3.49 L (4.30-5.90) m/uL Hgb 11.0 L (13.0-17.5) gm/dL Hct 34.4 L (39.0-53.0) % RDW 18.2 H (11.5-15.5) % Plt Count 66 L (150-450) k/uL Neutrophils # 28.0 H (1.3-7.7) k/uL ABG pH (7.35-7.45) ABG pO2 (83-108) mmHg ABG HCO3 (21-25) mmol/L ABG Total CO2 (19-24) mmol/L ABG O2 Saturation (94-97) % Hemoglobin (13.0-17.5) gm/dL Sodium (137-145) mmol/L Potassium (3.5-5.1) mmol/L Chloride 114 H (98-107) mmol/L Carbon Dioxide 19 L (22-30) mmol/L BUN 22 H (9-20) mg/dL Creatinine 3.57 H (0.66-1.25) mg/dL Glucose 67 L (74-99) mg/dL POC Glucose (mg/dL) (70-110) mg/dL Plasma Lactic Acid Robb 2.6 H* (0.7-2.0) mmol/L Calcium 5.4 L* (8.4-10.2) mg/dL Total Bilirubin (0.2-1.3) mg/dL AST 218 H (17-59) U/L ALT 140 H (4-49) U/L Troponin I (0.000-0.034) ng/mL Total Protein 4.4 L (6.3-8.2) g/dL Albumin 2.0 L (3.5-5.0) g/dL Procalcitonin (0.02-0.50) ng/mL 08/29/24 08/29/24 08/29/24 Range/Units 04:30 06:10 08:26 WBC (3.8-10.6) k/uL RBC (4.30-5.90) m/uL Hgb (13.0-17.5) gm/dL Hct (39.0-53.0) % RDW (11.5-15.5) % Plt Count (150-450) k/uL Neutrophils # (1.3-7.7) k/uL ABG pH (7.35-7.45) ABG pO2 147 H (83-108) mmHg ABG HCO3 31 H (21-25) mmol/L ABG Total CO2 32 H (19-24) mmol/L ABG O2 Saturation 99.4 H (94-97) % Hemoglobin 10.5 L (13.0-17.5) gm/dL Sodium (137-145) mmol/L Potassium (3.5-5.1) mmol/L Chloride (98-107) mmol/L Carbon Dioxide (22-30) mmol/L BUN (9-20) mg/dL Creatinine (0.66-1.25) mg/dL Glucose (74-99) mg/dL POC Glucose (mg/dL) (70-110) mg/dL Plasma Lactic Acid Robb (0.7-2.0) mmol/L Calcium (8.4-10.2) mg/dL Total Bilirubin (0.2-1.3) mg/dL AST (17-59) U/L ALT (4-49) U/L Troponin I 1.030 H* (0.000-0.034) ng/mL Total Protein (6.3-8.2) g/dL Albumin (3.5-5.0) g/dL Procalcitonin >100.00 H (0.02-0.50) ng/mL Microbiology - Last 24 Hours (Table) 08/28/24 11:42 Gram Stain - Preliminary Sputum Sputum Culture - Preliminary Assessment and Plan Plan: Acute cardiopulmonary arrest and the patient had PEA cardiac arrest x 3 and those were witnessed arrest in the emergency department and the downtime was 2 minutes, 6 minutes and 7 minutes respectively and the patient received epinephrine, CPR, bicarb and calcium. Exact cause is not clear. Altered mentation, negative CAT scan of the brain at the time of admission Acute hypoxic respiratory failure, currently intubated on mechanical ventilator. Oxygenation and acid-base status is improved Hyperkalemia with a potassium level of 6.8, improved post hemodialysis potassium level is normalized Acute hypotension, postcardiac arrest. Could be cardiogenic in nature. Could be hypovolemic and the patient received a total of 2 L of of IV fluids. Currently off norepinephrine and vasopressin Acute leukocytosis, rule out reactive, rule out sepsis/infection Acute leukocytosis postcardiac arrest, currently on Zosyn and vancomycin, pending cultures. Will monitor the white cell count End stage renal disease maintained on MWF hemodialysis schedule, last had dialysis was incomplete, performed on 08/27/2024 Hypertension, history of Coronary artery disease with prior PCI. Ischemic cardiomyopathy EF 45-50% Chronic diastolic heart failure Diabetes mellitus type 2 Anemia of chronic disease Gastroesophageal reflux disease Diabetic peripheral neuropathy Dyslipidemia Plan Continue vent support Give the patient sedation holiday Electrolytes are improved No pressors for now Repeat echocardiogram Monitor cardiac enzymes Monitor lactic acid level is improved Given IV Zosyn and vancomycin in the emergency department and the same antibiotics will be continued pending further cultures Blood cultures are still pending Nephrology consultation Cardiology consultation May need neurology consultation postcardiac arrest IV Protonix Heparin subcu for DVT prophylaxis Continue aspirin and the rest of the cardiac medication will be discontinued for now Insulin sliding scale coverage Monitor the white cell count The plan for now is to give a sedation holiday and evaluate his mentation and decide accordingly. Clinically much improved compared to yesterday. Will continue to follow. Will continue to follow make further recommendations based on his progress. Intrapleural catheter was established in the emergency department. Condition is critical. This evaluation was done more than 30 minutes Time with Patient: Greater than 30
--- NOTE | 2024-08-29 11:52 | P.PCN ---
Date of Procedure: 08/29/24 Operative Findings: Preoperative Diagnosis: Cardiac arrest Postoperative Diagnosis: Cardiac arrest Procedure(s) Performed: Arterial line insertion Anesthesia: local Surgeon: Lauren Garcia Estimated Blood Loss (ml): 0 Condition: critical Disposition: ICU Operative Findings: Indication: Hemodynamic monitoring/Intravenous access. Indication: Hemodynamic monitoring. A time-out was completed verifying correct patient, procedure, site, positioning, and implant(s) or special equipment if applicable. The patients left groin groin was prepped and draped in sterile fashion. 1% Lidocaine was used to anesthetize the area. An 18G Arrow arterial line was introduced into the left femoral artery. The catheter was threaded over the guide wire and the needle was removed with appropriate pulsatile blood return. Blood loss was minimal. The catheter was then sutured in place to the skin and a sterile dressing applied. Perfusion to the extremity distal to the point of catheter insertion was checked and found to be adequate. The patient tolerated the procedure well and there were no complications.
[2024-08-29] MEDS ORDERED: VANCOMYCIN 1,000 MG in SODIUM CHLORIDE 0.9% 250 ML IVPB ONE ×2 (12:00→21:00)
--- NOTE | 2024-08-29 12:52 | P.PN ---
Subjective Progress Note Date: 08/29/24 patient is a 44-year-old gentleman past medical history significant for end- stage renal disease on dialysis who presented to the ER for altered mental status. History was limited as patient was altered. According to patient was acting confused yesterday after dialysis. There was no complaint of fever or chills. Later in the night noticed the patient was having difficulty in breathing. This morning patient was found to be very confused so was brought to the ER. By the time patient came to the ER patient stopped breathing with loss of pulse,, CPR was initiated, ROSC was achieved but pulse was again lost with further 2 rounds of CPR, patient received epi, sodium bicarb and in the process. Patient was intubated in the process. Initial lab work done in the ER showed WBC 31.6, hemoglobin 11, platelet count 61, D-dimer 9.08, sodium 135, potassium 5, BUN 31, creatinine 7.48, calcium 8.2 troponin 0.072 EKG done in the ER showed heart rate of66 , no ST segment elevation or depression seen, no T-wave inversions seen. Chest x-ray done in the ER showed marked cardiomegaly, acute cardiopulmonary disease involving the right lung CT head done showed no acute intracranial process CTA chest done showed no evidence of pulmonary embolism, small bibasilar infiltrates and effusions seen Patient admitted to internal medicine service in ICU 08/29. Patient seen and examined. Blood work done showed WBC 30.1, hemoglobin 11, platelet count 66, sodium 130, potassium 3.5, BUN 22, creatinine 3.57, calcium 5.4 AST 218, ALT 140 patient is currently off all the pressors. Patient sedation was weaned off and patient was opening his eyes and trying to get up. REVIEW OF SYSTEMS: Review of system cannot be obtained as patient is currently intubated PHYSICAL EXAMINATION: GENERAL: The patient is intubated HEENT: Pupils are round and equally reacting to light. EOMI. No scleral icterus. No conjunctival pallor. Normocephalic, atraumatic. No pharyngeal erythema. No thyromegaly. CARDIOVASCULAR: S1 and S2 present. No murmurs, rubs, or gallops. PULMONARY: Coarse breath sound bilaterally,, no wheezing or crackles. ABDOMEN: Soft, nontender, nondistended, normoactive bowel sounds. No palpable organomegaly. MUSCULOSKELETAL: No joint swelling or deformity. EXTREMITIES: No cyanosis, clubbing, or pedal edema. NEUROLOGICAL: Intubated SKIN: No rashes. Assessment and plan Septic shock Cardiac arrest with pulseless electrical activity Acute encephalopathy Acute hypoxemic respiratory failure requiring mechanical ventilation Hyponatremia Hyperkalemia Acute transaminitis Thrombocytopenia End-stage renal disease on dialysis Lactic acidosis Hypertension Coronary artery disease with prior PCI. Ischemic cardiomyopathy EF 45-50% Chronic diastolic heart failure Diabetes mellitus type 2 Anemia of chronic disease Gastroesophageal reflux disease Diabetic peripheral neuropathy Dyslipidemia Monitor vital signs Monitor CBC Monitor CMP Continue telemetry monitoring Continue vent management Aggressive bronchopulmonary hygiene Monitor troponins. Follow-up on 2D echo Continue IV Zosyn and Vanco Continue tube feeding ICU following Nephrology following ID following -consulted cardiology Labs and medication were reviewed.. Continue same treatment. Continue with symptomatic treatment. Resume home medication. Monitor labs and vitals. DVT and GI prophylaxis. Further recommendations as per clinical course of the patient Dictation was produced using [email or web address] dictation software. please excuse any grammatical, word or spelling errors. Objective - Vital Signs Vital signs: Vital Signs Temp 99.9 F H 08/29/24 04:00 Pulse 79 08/29/24 07:00 Resp 21 08/29/24 07:00 BP 132/78 08/29/24 07:00 Pulse Ox 100 08/29/24 07:00 FiO2 40 08/29/24 07:44 Intake & Output 08/28/24 08/29/24 08/29/24 18:59 06:59 18:59 Intake Total 581.438 8026.377 64.279 Output Total 5 2800 Balance 245.367 -997.623 64.279 Weight 78 kg 80.1 kg Intake: Intake, IV Titration 805.371 2028.377 64.279 Amount Calcium Gluconate in NaCl 100 2 gm In Saline 1 100ml. bag @ 100 mls/hr IVPB ONCE ONE Rx#:[id number] Norepinephrine 4 mg In 250.367 232.582 Sodium Chloride 0.9% 250 ml @ 0.03 MCG/KG/MIN 6. 481 mls/hr IV .Q24H ONE Rx#:[id number] Piperacillin-Tazobactam 3 100 .375 gm In Sodium Chloride 0.9% 100 ml @ 25 mls/hr IVPB Q12H [facility] Rx# :[id number] Vancomycin 1,000 mg In 375 Sodium Chloride 0.9% 250 ml @ 125 mls/hr IVPB ONCE ONE Rx#:[id number] Vasopressin 20 unit In 62.118 Sodium Chloride 0.9% 50 ml @ 0.03 UNITS/MIN 4.59 mls/hr IV .Q11H7M [facility] Rx# :[id number] propofoL 1,000 mg In 132.677 64.279 Empty Bag 1 bag @ 10 MCG/ KG/MIN 3.402 mls/hr IV . Q24H [facility] Rx#:[id number] Hemodialysis 800 Output: Urine 5 0 Hemodialysis 1800 Hemodialysis Net Amount 1000 Other: Voiding Method Indwelling Catheter Indwelling Catheter # Bowel Movements 1 ABP, PAP, CO, CI - Last Documented Arterial Blood Pressure 152/64 - Labs CBC & Chem 7: 08/29/24 04:30 08/29/24 04:30 Labs: Abnormal Lab Results - Last 24 Hours (Table) 08/28/24 08/28/24 08/28/24 Range/Units 10:14 10:14 10:14 WBC 31.6 H (3.8-10.6) k/uL RBC 3.51 L (4.30-5.90) m/uL Hgb 11.0 L (13.0-17.5) gm/dL Hct 35.4 L (39.0-53.0) % MCV 100.9 H (80.0-100.0) fL RDW 18.3 H (11.5-15.5) % Plt Count 61 L (150-450) k/uL Neutrophils # (1.3-7.7) k/uL Neutrophils # (Manual) 27.40 H (1.3-7.7) k/uL Monocytes # (Manual) 1.58 H (0-1.0) k/uL Metamyelocytes # (Man) 0.95 H (0) k/uL Myelocytes # (Manual) 0.63 H (0) k/uL PT 18.5 H (10.0-12.5) sec INR 1.8 H (<1.2) APTT 35.7 H (22.0-30.0) sec D-Dimer 9.08 H (<0.60) mg/L FEU ABG pH (7.35-7.45) ABG pO2 (83-108) mmHg ABG HCO3 (21-25) mmol/L ABG Total CO2 (19-24) mmol/L ABG O2 Saturation (94-97) % Hemoglobin (13.0-17.5) gm/dL Sodium 135 L (137-145) mmol/L Potassium 6.0 H (3.5-5.1) mmol/L Chloride (98-107) mmol/L Carbon Dioxide 20 L (22-30) mmol/L BUN 31 H (9-20) mg/dL Creatinine 7.48 H* (0.66-1.25) mg/dL Glucose 101 H (74-99) mg/dL POC Glucose (mg/dL) (70-110) mg/dL Plasma Lactic Acid Robb (0.7-2.0) mmol/L Calcium 8.2 L (8.4-10.2) mg/dL Total Bilirubin (0.2-1.3) mg/dL AST (17-59) U/L ALT (4-49) U/L Troponin I (0.000-0.034) ng/mL Total Protein (6.3-8.2) g/dL Albumin (3.5-5.0) g/dL 08/28/24 08/28/24 08/28/24 Range/Units 10:14 11:18 13:00 WBC (3.8-10.6) k/uL RBC (4.30-5.90) m/uL Hgb (13.0-17.5) gm/dL Hct (39.0-53.0) % MCV (80.0-100.0) fL RDW (11.5-15.5) % Plt Count (150-450) k/uL Neutrophils # (1.3-7.7) k/uL Neutrophils # (Manual) (1.3-7.7) k/uL Monocytes # (Manual) (0-1.0) k/uL Metamyelocytes # (Man) (0) k/uL Myelocytes # (Manual) (0) k/uL PT (10.0-12.5) sec INR (<1.2) APTT (22.0-30.0) sec D-Dimer (<0.60) mg/L FEU ABG pH (7.35-7.45) ABG pO2 >420 H (83-108) mmHg ABG HCO3 (21-25) mmol/L ABG Total CO2 25 H (19-24) mmol/L ABG O2 Saturation 100.0 H (94-97) % Hemoglobin 9.6 L (13.0-17.5) gm/dL Sodium (137-145) mmol/L Potassium (3.5-5.1) mmol/L Chloride (98-107) mmol/L Carbon Dioxide (22-30) mmol/L BUN (9-20) mg/dL Creatinine (0.66-1.25) mg/dL Glucose (74-99) mg/dL POC Glucose (mg/dL) (70-110) mg/dL Plasma Lactic Acid Robb 8.0 H* (0.7-2.0) mmol/L Calcium (8.4-10.2) mg/dL Total Bilirubin (0.2-1.3) mg/dL AST (17-59) U/L ALT (4-49) U/L Troponin I 0.072 H* (0.000-0.034) ng/mL Total Protein (6.3-8.2) g/dL Albumin (3.5-5.0) g/dL 08/28/24 08/28/24 08/28/24 Range/Units 14:20 14:22 15:59 WBC (3.8-10.6) k/uL RBC (4.30-5.90) m/uL Hgb (13.0-17.5) gm/dL Hct (39.0-53.0) % MCV (80.0-100.0) fL RDW (11.5-15.5) % Plt Count (150-450) k/uL Neutrophils # (1.3-7.7) k/uL Neutrophils # (Manual) (1.3-7.7) k/uL Monocytes # (Manual) (0-1.0) k/uL Metamyelocytes # (Man) (0) k/uL Myelocytes # (Manual) (0) k/uL PT (10.0-12.5) sec INR (<1.2) APTT (22.0-30.0) sec D-Dimer (<0.60) mg/L FEU ABG pH (7.35-7.45) ABG pO2 (83-108) mmHg ABG HCO3 (21-25) mmol/L ABG Total CO2 (19-24) mmol/L ABG O2 Saturation (94-97) % Hemoglobin (13.0-17.5) gm/dL Sodium (137-145) mmol/L Potassium 6.9 H* (3.5-5.1) mmol/L Chloride (98-107) mmol/L Carbon Dioxide (22-30) mmol/L BUN (9-20) mg/dL Creatinine (0.66-1.25) mg/dL Glucose (74-99) mg/dL POC Glucose (mg/dL) 45 L* 143 H (70-110) mg/dL Plasma Lactic Acid Robb (0.7-2.0) mmol/L Calcium (8.4-10.2) mg/dL Total Bilirubin (0.2-1.3) mg/dL AST (17-59) U/L ALT (4-49) U/L Troponin I (0.000-0.034) ng/mL Total Protein (6.3-8.2) g/dL Albumin (3.5-5.0) g/dL 08/28/24 08/28/24 08/28/24 Range/Units 15:59 16:53 19:04 WBC (3.8-10.6) k/uL RBC (4.30-5.90) m/uL Hgb (13.0-17.5) gm/dL Hct (39.0-53.0) % MCV (80.0-100.0) fL RDW (11.5-15.5) % Plt Count (150-450) k/uL Neutrophils # (1.3-7.7) k/uL Neutrophils # (Manual) (1.3-7.7) k/uL Monocytes # (Manual) (0-1.0) k/uL Metamyelocytes # (Man) (0) k/uL Myelocytes # (Manual) (0) k/uL PT (10.0-12.5) sec INR (<1.2) APTT (22.0-30.0) sec D-Dimer (<0.60) mg/L FEU ABG pH 7.34 L (7.35-7.45) ABG pO2 226 H (83-108) mmHg ABG HCO3 19 L (21-25) mmol/L ABG Total CO2 (19-24) mmol/L ABG O2 Saturation 99.8 H (94-97) % Hemoglobin 11.3 L (13.0-17.5) gm/dL Sodium (137-145) mmol/L Potassium (3.5-5.1) mmol/L Chloride (98-107) mmol/L Carbon Dioxide (22-30) mmol/L BUN (9-20) mg/dL Creatinine (0.66-1.25) mg/dL Glucose (74-99) mg/dL POC Glucose (mg/dL) (70-110) mg/dL Plasma Lactic Acid Robb 10.6 H* 5.1 H* (0.7-2.0) mmol/L Calcium (8.4-10.2) mg/dL Total Bilirubin (0.2-1.3) mg/dL AST (17-59) U/L ALT (4-49) U/L Troponin I (0.000-0.034) ng/mL Total Protein (6.3-8.2) g/dL Albumin (3.5-5.0) g/dL 08/28/24 08/28/24 08/28/24 Range/Units 22:41 22:41 22:41 WBC 31.5 H (3.8-10.6) k/uL RBC 3.77 L (4.30-5.90) m/uL Hgb 11.9 L (13.0-17.5) gm/dL Hct 37.6 L (39.0-53.0) % MCV (80.0-100.0) fL RDW 18.4 H (11.5-15.5) % Plt Count 54 L (150-450) k/uL Neutrophils # 29.0 H (1.3-7.7) k/uL Neutrophils # (Manual) (1.3-7.7) k/uL Monocytes # (Manual) (0-1.0) k/uL Metamyelocytes # (Man) (0) k/uL Myelocytes # (Manual) (0) k/uL PT (10.0-12.5) sec INR (<1.2) APTT (22.0-30.0) sec D-Dimer (<0.60) mg/L FEU ABG pH (7.35-7.45) ABG pO2 (83-108) mmHg ABG HCO3 (21-25) mmol/L ABG Total CO2 (19-24) mmol/L ABG O2 Saturation (94-97) % Hemoglobin (13.0-17.5) gm/dL Sodium 135 L (137-145) mmol/L Potassium (3.5-5.1) mmol/L Chloride (98-107) mmol/L Carbon Dioxide (22-30) mmol/L BUN 23 H (9-20) mg/dL Creatinine 4.46 H (0.66-1.25) mg/dL Glucose 72 L (74-99) mg/dL POC Glucose (mg/dL) (70-110) mg/dL Plasma Lactic Acid Robb 2.6 H* (0.7-2.0) mmol/L Calcium 7.9 L (8.4-10.2) mg/dL Total Bilirubin 1.5 H (0.2-1.3) mg/dL AST 376 H (17-59) U/L ALT 179 H (4-49) U/L Troponin I (0.000-0.034) ng/mL Total Protein (6.3-8.2) g/dL Albumin 3.4 L (3.5-5.0) g/dL 08/29/24 08/29/24 08/29/24 Range/Units 04:30 04:30 06:10 WBC 30.1 H (3.8-10.6) k/uL RBC 3.49 L (4.30-5.90) m/uL Hgb 11.0 L (13.0-17.5) gm/dL Hct 34.4 L (39.0-53.0) % MCV (80.0-100.0) fL RDW 18.2 H (11.5-15.5) % Plt Count 66 L (150-450) k/uL Neutrophils # 28.0 H (1.3-7.7) k/uL Neutrophils # (Manual) (1.3-7.7) k/uL Monocytes # (Manual) (0-1.0) k/uL Metamyelocytes # (Man) (0) k/uL Myelocytes # (Manual) (0) k/uL PT (10.0-12.5) sec INR (<1.2) APTT (22.0-30.0) sec D-Dimer (<0.60) mg/L FEU ABG pH (7.35-7.45) ABG pO2 147 H (83-108) mmHg ABG HCO3 31 H (21-25) mmol/L ABG Total CO2 32 H (19-24) mmol/L ABG O2 Saturation 99.4 H (94-97) % Hemoglobin 10.5 L (13.0-17.5) gm/dL Sodium (137-145) mmol/L Potassium (3.5-5.1) mmol/L Chloride 114 H (98-107) mmol/L Carbon Dioxide 19 L (22-30) mmol/L BUN 22 H (9-20) mg/dL Creatinine 3.57 H (0.66-1.25) mg/dL Glucose 67 L (74-99) mg/dL POC Glucose (mg/dL) (70-110) mg/dL Plasma Lactic Acid Robb (0.7-2.0) mmol/L Calcium 5.4 L* (8.4-10.2) mg/dL Total Bilirubin (0.2-1.3) mg/dL AST 218 H (17-59) U/L ALT 140 H (4-49) U/L Troponin I (0.000-0.034) ng/mL Total Protein 4.4 L (6.3-8.2) g/dL Albumin 2.0 L (3.5-5.0) g/dL
[2024-08-29 13:25] LABS: Hepatitis B Surface Antigen Nonreactive (Nonreactive)
--- NOTE | 2024-08-29 15:09 | P.PN ---
Subjective Progress Note Date: 08/29/24 Principal diagnosis: Reason for follow-up is sepsis/pneumonia Patient is a 44-year-old -Portuguese male with a past medical history significant for hypertension hyperlipidemia OK coronary artery disease end-stage renal disease on hemodialysis through the right upper extremity AV fistula patient has been brought into the hospital for evaluation of mental status changes did have episode of vomiting at home on arrival to the ER the patient stopped breathing and did have a cardiopulmonary resuscitation was intubated. On today's evaluation that is 08/29/2024, Patient did have a temperature 100.4 F at noon patient is on the ventilator FiO2 is currently down to 40% no vom iting or any other changes reported by the nursing staff. Patient white count is slightly down to 13.1, creatinine is 3.57 procalcitonin was more than 100 sputum cultures currently pending Objective - Vital Signs Vital signs: Vital Signs Temp 100.4 F H 08/29/24 12:00 Pulse 78 08/29/24 12:00 Resp 21 08/29/24 12:00 BP 109/65 08/29/24 09:30 Pulse Ox 100 08/29/24 12:00 FiO2 40 08/29/24 12:00 Intake & Output 08/28/24 08/29/24 08/29/24 18:59 06:59 18:59 Intake Total 809.928 2984.377 93.168 Output Total 5 2800 0 Balance 245.367 -997.623 93.168 Weight 78 kg 80.1 kg Intake: Intake, IV Titration 345.037 6317.377 93.168 Amount Calcium Gluconate in NaCl 100 2 gm In Saline 1 100ml. bag @ 100 mls/hr IVPB ONCE ONE Rx#:[id number] Norepinephrine 4 mg In 250.367 232.582 Sodium Chloride 0.9% 250 ml @ 0.03 MCG/KG/MIN 6. 481 mls/hr IV .Q24H [facility] Rx#:[id number] Piperacillin-Tazobactam 3 100 .375 gm In Sodium Chloride 0.9% 100 ml @ 25 mls/hr IVPB Q12H [facility] Rx# :[id number] Vancomycin 1,000 mg In 375 Sodium Chloride 0.9% 250 ml @ 125 mls/hr IVPB ONCE ONE Rx#:[id number] Vasopressin 20 unit In 62.118 Sodium Chloride 0.9% 50 ml @ 0.03 UNITS/MIN 4.59 mls/hr IV .Q11H7M [facility] Rx# :[id number] propofoL 1,000 mg In 132.677 93.168 Empty Bag 1 bag @ 10 MCG/ KG/MIN 3.402 mls/hr IV . Q24H [facility] Rx#:[id number] Hemodialysis 800 Output: Urine 5 0 0 Hemodialysis 1800 Hemodialysis Net Amount 1000 Other: Voiding Method Indwelling Catheter Indwelling Catheter Indwelling Catheter # Bowel Movements 1 ABP, PAP, CO, CI - Last Documented Arterial Blood Pressure 110/53 - Exam GENERAL DESCRIPTION: Middle-age male intubated on the vent RESPIRATORY SYSTEM: Unlabored breathing , decreased breath sounds at bases HEART: S1 S2 regular rate and rhythm , ABDOMEN: Soft , no tenderness EXTREMITIES: No edema feet - Labs CBC & Chem 7: 08/29/24 04:30 08/29/24 04:30 Labs: Abnormal Lab Results - Last 24 Hours (Table) 08/28/24 08/28/24 08/28/24 Range/Units 10:14 15:59 15:59 WBC (3.8-10.6) k/uL RBC (4.30-5.90) m/uL Hgb (13.0-17.5) gm/dL Hct (39.0-53.0) % RDW (11.5-15.5) % Plt Count (150-450) k/uL Neutrophils # (1.3-7.7) k/uL ABG pH (7.35-7.45) ABG pO2 (83-108) mmHg ABG HCO3 (21-25) mmol/L ABG Total CO2 (19-24) mmol/L ABG O2 Saturation (94-97) % Hemoglobin (13.0-17.5) gm/dL Sodium (137-145) mmol/L Potassium 6.9 H* (3.5-5.1) mmol/L Chloride (98-107) mmol/L Carbon Dioxide (22-30) mmol/L BUN (9-20) mg/dL Creatinine (0.66-1.25) mg/dL Glucose (74-99) mg/dL Plasma Lactic Acid Robb 10.6 H* (0.7-2.0) mmol/L Calcium (8.4-10.2) mg/dL Total Bilirubin (0.2-1.3) mg/dL AST (17-59) U/L ALT (4-49) U/L Troponin I (0.000-0.034) ng/mL Total Protein (6.3-8.2) g/dL Albumin (3.5-5.0) g/dL Procalcitonin (0.02-0.50) ng/mL Hep Bs Antibody A (Negative) 08/28/24 08/28/24 08/28/24 Range/Units 16:53 19:04 22:41 WBC 31.5 H (3.8-10.6) k/uL RBC 3.77 L (4.30-5.90) m/uL Hgb 11.9 L (13.0-17.5) gm/dL Hct 37.6 L (39.0-53.0) % RDW 18.4 H (11.5-15.5) % Plt Count 54 L (150-450) k/uL Neutrophils # 29.0 H (1.3-7.7) k/uL ABG pH 7.34 L (7.35-7.45) ABG pO2 226 H (83-108) mmHg ABG HCO3 19 L (21-25) mmol/L ABG Total CO2 (19-24) mmol/L ABG O2 Saturation 99.8 H (94-97) % Hemoglobin 11.3 L (13.0-17.5) gm/dL Sodium (137-145) mmol/L Potassium (3.5-5.1) mmol/L Chloride (98-107) mmol/L Carbon Dioxide (22-30) mmol/L BUN (9-20) mg/dL Creatinine (0.66-1.25) mg/dL Glucose (74-99) mg/dL Plasma Lactic Acid Robb 5.1 H* (0.7-2.0) mmol/L Calcium (8.4-10.2) mg/dL Total Bilirubin (0.2-1.3) mg/dL AST (17-59) U/L ALT (4-49) U/L Troponin I (0.000-0.034) ng/mL Total Protein (6.3-8.2) g/dL Albumin (3.5-5.0) g/dL Procalcitonin (0.02-0.50) ng/mL Hep Bs Antibody (Negative) 08/28/24 08/28/24 08/29/24 Range/Units 22:41 22:41 04:30 WBC (3.8-10.6) k/uL RBC (4.30-5.90) m/uL Hgb (13.0-17.5) gm/dL Hct (39.0-53.0) % RDW (11.5-15.5) % Plt Count (150-450) k/uL Neutrophils # (1.3-7.7) k/uL ABG pH (7.35-7.45) ABG pO2 (83-108) mmHg ABG HCO3 (21-25) mmol/L ABG Total CO2 (19-24) mmol/L ABG O2 Saturation (94-97) % Hemoglobin (13.0-17.5) gm/dL Sodium 135 L (137-145) mmol/L Potassium (3.5-5.1) mmol/L Chloride 114 H (98-107) mmol/L Carbon Dioxide 19 L (22-30) mmol/L BUN 23 H 22 H (9-20) mg/dL Creatinine 4.46 H 3.57 H (0.66-1.25) mg/dL Glucose 72 L 67 L (74-99) mg/dL Plasma Lactic Acid Robb 2.6 H* (0.7-2.0) mmol/L Calcium 7.9 L 5.4 L* (8.4-10.2) mg/dL Total Bilirubin 1.5 H (0.2-1.3) mg/dL AST 376 H 218 H (17-59) U/L ALT 179 H 140 H (4-49) U/L Troponin I (0.000-0.034) ng/mL Total Protein 4.4 L (6.3-8.2) g/dL Albumin 3.4 L 2.0 L (3.5-5.0) g/dL Procalcitonin (0.02-0.50) ng/mL Hep Bs Antibody (Negative) 08/29/24 08/29/24 08/29/24 Range/Units 04:30 04:30 06:10 WBC 30.1 H (3.8-10.6) k/uL RBC 3.49 L (4.30-5.90) m/uL Hgb 11.0 L (13.0-17.5) gm/dL Hct 34.4 L (39.0-53.0) % RDW 18.2 H (11.5-15.5) % Plt Count 66 L (150-450) k/uL Neutrophils # 28.0 H (1.3-7.7) k/uL ABG pH (7.35-7.45) ABG pO2 147 H (83-108) mmHg ABG HCO3 31 H (21-25) mmol/L ABG Total CO2 32 H (19-24) mmol/L ABG O2 Saturation 99.4 H (94-97) % Hemoglobin 10.5 L (13.0-17.5) gm/dL Sodium (137-145) mmol/L Potassium (3.5-5.1) mmol/L Chloride (98-107) mmol/L Carbon Dioxide (22-30) mmol/L BUN (9-20) mg/dL Creatinine (0.66-1.25) mg/dL Glucose (74-99) mg/dL Plasma Lactic Acid Robb (0.7-2.0) mmol/L Calcium (8.4-10.2) mg/dL Total Bilirubin (0.2-1.3) mg/dL AST (17-59) U/L ALT (4-49) U/L Troponin I (0.000-0.034) ng/mL Total Protein (6.3-8.2) g/dL Albumin (3.5-5.0) g/dL Procalcitonin >100.00 H (0.02-0.50) ng/mL Hep Bs Antibody (Negative) 08/29/24 Range/Units 08:26 WBC (3.8-10.6) k/uL RBC (4.30-5.90) m/uL Hgb (13.0-17.5) gm/dL Hct (39.0-53.0) % RDW (11.5-15.5) % Plt Count (150-450) k/uL Neutrophils # (1.3-7.7) k/uL ABG pH (7.35-7.45) ABG pO2 (83-108) mmHg ABG HCO3 (21-25) mmol/L ABG Total CO2 (19-24) mmol/L ABG O2 Saturation (94-97) % Hemoglobin (13.0-17.5) gm/dL Sodium (137-145) mmol/L Potassium (3.5-5.1) mmol/L Chloride (98-107) mmol/L Carbon Dioxide (22-30) mmol/L BUN (9-20) mg/dL Creatinine (0.66-1.25) mg/dL Glucose (74-99) mg/dL Plasma Lactic Acid Robb (0.7-2.0) mmol/L Calcium (8.4-10.2) mg/dL Total Bilirubin (0.2-1.3) mg/dL AST (17-59) U/L ALT (4-49) U/L Troponin I 1.030 H* (0.000-0.034) ng/mL Total Protein (6.3-8.2) g/dL Albumin (3.5-5.0) g/dL Procalcitonin (0.02-0.50) ng/mL Hep Bs Antibody (Negative) Microbiology - Last 24 Hours (Table) 08/28/24 11:42 Gram Stain - Preliminary Sputum Sputum Culture - Preliminary Assessment and Plan (1) Pneumonia Current Visit: Yes Status: Acute Code(s): J18.9 - PNEUMONIA, UNSPECIFIED ORGANISM SNOMED Code(s): 227945246 (2) Sepsis Current Visit: Yes Status: Acute Code(s): A41.9 - SEPSIS, UNSPECIFIED ORGANISM SNOMED Code(s): 25532033 Plan: 1patient presenting to the hospital with decreased level of responsiveness subsequently the patient did have a cardiac arrest requiring resuscitation did have significant elevated white count hypotension elevated lactic acid meeting currently for SIRS/sepsis with concern for possible aspiration pneumonitis to be the likely etiology 2-patient did have procalcitonin more than 100 sputum and blood culture currently pending 3we will cover the patient on vancomycin and Zosyn while waiting for the culture to finalize Dictation was produced using [employer] software. please excuse any grammatical, word or spelling errors. Time with Patient: Less than 30
[2024-08-29 18:23] LABS: Glucose,Whole Blood 87 mg/dL (70-110)
[2024-08-29] MEDS: PIPERACILLIN-TAZOBACTAM 3.375 GM in SODIUM CHLORIDE 0.9% 100 ML IVPB SCH (19:41)
[2024-08-29] MEDS: VANCOMYCIN 1,500 MG in SODIUM CHLORIDE 0.9% 500 ML 500 ML IVPB ONE (19:41)
[2024-08-29 21:44] LABS: Glucose,Whole Blood 96 mg/dL (70-110)
[2024-08-30 00:55] LABS: Glucose,Whole Blood 92 mg/dL (70-110)
[2024-08-30] MEDS: PIPERACILLIN-TAZOBACTAM 3.375 GM in SODIUM CHLORIDE 0.9% 100 ML IVPB SCH ×2 (03:46→15:55)
[2024-08-30 04:58] LABS: Glucose,Whole Blood 102 mg/dL (70-110)
[2024-08-30 05:34] LABS: Anisocytosis Slight; Basophils % (A) 0 %; Eosinophils % (A) 0 %; HCT 30.6 % (39.0-53.0); HGB 9.7 gm/dL (13.0-17.5); Lymphocytes # (A) 0.7 k/uL (1.0-4.8); Lymphocytes % (A) 3 %; MCH 31.2 pg (25.0-35.0); MCHC 31.8 g/dL (31.0-37.0); MCV 97.9 fL (80.0-100.0); Macrocytosis Slight; Mean Platelet Volume 12.6; Monocytes # (A) 0.9 k/uL (0-1.0); Monocytes % (A) 4 %; Neutrophils % (A) 92 %; RBC 3.12 m/uL (4.30-5.90); RDW 18.5 % (11.5-15.5); WBC 23.8 k/uL (3.8-10.6)
[2024-08-30 05:36] LABS: Platelet Count 75 k/uL (150-450)
[2024-08-30 05:41] LABS: ABG Base Excess 4.7 mmol/L; ABG HCO3 30 mmol/L (21-25); ABG Oxygen Saturation 99.7 % (94-97); ABG PCO2 45 mmHg (35-45); ABG PH 7.43 (7.35-7.45); ABG PO2 188 mmHg (83-108); ABG TCO2 31 mmol/L (19-24)
[2024-08-30 05:46] LABS: ALT 197 U/L (4-49); AST 140 U/L (17-59); African American GFR (CKD) 10 (>60 ml/min/1.73 sqM); Albumin 2.8 g/dL (3.5-5.0); Alkaline Phosphatase 71 U/L (38-126); Anion Gap 7 mmol/L; Blood Urea Nitrogen 54 mg/dL (9-20); Calcium 7.7 mg/dL (8.4-10.2); Carbon Dioxide 28 mmol/L (22-30); Chloride 101 mmol/L (98-107); Glucose 107 mg/dL (74-99); Non-African American GFR(CKD) 8 (>60 ml/min/1.73 sqM); Potassium 4.5 mmol/L (3.5-5.1); Sodium 136 mmol/L (137-145); Total Bilirubin 1.5 mg/dL (0.2-1.3); Total Protein 5.9 g/dL (6.3-8.2)
--- NOTE | 2024-08-30 08:00 | P.CRDCN ---
History of Present Illness Consult date: 08/30/24 History of present illness: History of Present Illness: The patient is a 44-year-old male with end-stage renal disease, history of hypertension who presented to the emergency room with change in mental status, in the emergency room he went apneic had a cardiac arrest with PEA rhythm. He underwent CPR on 3 occasions. He is intubated at this time, sedated, in sinus mechanism, on no vasopressors. He underwent dialysis yesterday. His potassium was elevated on presentation. He has a history of diabetes and hypertension. An echocardiogram in February showed an ejection fraction of 45 to 50% with moderate severe pulmonary hypertension and moderate tricuspid regurgitation. He has been followed by Dr. Martines on a regular basis. Apparently he did not have any missing dialysis sessions. Since admission he had no further cardiac arrest. He has no evidence of ventricular tachycardia or atrial fibrillation. Hemodynamically he has been stable. He is scheduled to undergo dialysis again today. Medications: At home hydralazine, carvedilol 25 mg twice a day, nifedipine 90 mg daily, clonidine patch, Entresto 2426 twice a day, aspirin, Protonix Review of Systems: Could not be obtained Physical Examination: 44-year-old male, intubated and sedated,Blood pressure 142/60, Heart rate 60 Head: Normocephalic. Eyes: Sclerae nonicteric. Neck: Good carotid upstroke, no bruit, no jugular venous distention. Lungs: Clear to auscultation. Heart: Regular rate and rhythm, S1-S2, no S3, no rub. Systolic ejection murmur Abdomen: Soft, positive bowel sounds no organomegaly. Extremities: No edema, intact distal pulses. Labs: On admission WBC 31.6, potassium 6.0, lactic acid 8.0, creatinine 7.48. Troponin 0.072. Peak troponin 1.03. The patient has chronic troponin elevation most likely related to his chronic kidney disease. His WBC today are down to 23.8. Hemoglobin 9.7. His potassium is 4.5. His chest x-ray shows cardiomegaly with no evidence of infiltrate. His CT scan of the chest showed no pulmonary embolism and his CT scan of the head showed no acute bleed or mass effect EKG: Sinus mechanism rate of 67 with early repolarization changes Impression: 1. Respiratory failure with change in mental status and cardiac arrest with PEA. There was no evidence of ventricular fibrillation or tachycardia. His findings could be exacerbated by the electrolyte imbalance and chronic kidney disease no evidence of acute coronary syndrome 2. End-stage renal disease on hemodialysis 3. Mild troponin elevation related to his chronic kidney disease 4. History of hypertension Plan: 1. Obtain an echocardiogram with Doppler 2. Restart beta-jamarcus and clonidine to prevent blood pressure rebound 3. Dialysis as planned 4. Repeat EKG 5. Depending on his progress further recommendations will be made, thank you for this consult we will follow with you. Past Medical History Past Medical History: Coronary Artery Disease (CAD), Heart Failure, Eye Disorder, GERD/Reflux, Hyperlipidemia, Hypertension, Myocardial Infarction (SD), Renal Disease, Respiratory Disorder Additional Past Medical History / Comment(s): Pt recently admitted to [facility] on 05/09/20 with acute on chronic CHF/amyloidosis with generalized anasarca/acute on chronic kidney injury/acute anemia/advanced CAD/valvular disease/severe pulmonary htn/abnormal liver test/hyperlipidemia. Other hx: IDDM type II, pt states informed he had kidney disease in Feb, 2020 then ESRD diagnosed 05/09/20 with hemodialysis M/W/F,neuropathy bilateral feet, L foot ulcer with debridements, L eye blindness d/t diabetic retinopathy, ischemic cardiomyopathy, anasarca/lower leg edema. Last Myocardial Infarction Date:: 03/30/2018 History of Any Multi-Drug Resistant Organisms: None Reported Past Surgical History: Heart Catheterization With Stent Additional Past Surgical History / Comment(s): 05/17/20 R subclavian hemodialysis catheter, debridements L foot wound, R eye surgery-pt believes to remove cataract, SEAN fistula Additional Past Anesthesia/Blood Transfusion Reaction / Comment(s): During 3rd debridement L foot ulcer Date of Last Stent Placement:: 03/31/2018 Past Psychological History: No Psychological Hx Reported Smoking Status: Never smoker Past Alcohol Use History: None Reported Past Drug Use History: None Reported - Past Family History Mother Family Medical History: Diabetes Mellitus, Hyperlipidemia, Hypertension Father Family Medical History: Diabetes Mellitus, Hypertension Medications and Allergies Home Medications Medication Instructions Recorded Confirmed Type Nitroglycerin Sl Tabs [Nitrostat] 0.4 mg SL Q5M PRN 05/09/20 08/28/24 History NIFEdipine XL [Procardia XL] 90 mg PO DAILY 03/08/24 08/28/24 History Sacubitril/Valsartan [Entresto 24 1 tab PO BID 06/16/24 08/28/24 History mg-26 mg Tablet] hydrALAZINE HCL [Apresoline] 50 mg PO TID-W/MEALS 06/16/24 08/28/24 History Aspirin 81 mg PO DAILY #30 tab 06/17/24 08/28/24 Rx Pantoprazole Sodium [Protonix] 20 mg PO DAILY 08/28/24 08/28/24 History carvediloL [Coreg] 25 mg PO BID 08/28/24 08/28/24 History cloNIDine 0.3 MG/24HR PATCH 1 patch TRANSDERM SA 08/28/24 08/28/24 History [Catapres-TTS] Allergies Allergy/AdvReac Type Severity Reaction Status Date / Time nickel Allergy Rash/Hives Verified 06/16/24 08:15 Physical Exam Vitals: Vital Signs Temp Pulse Resp BP Pulse Ox FiO2 08/30/24 06:00 66 20 126/73 100 08/30/24 05:33 40 08/30/24 05:00 66 20 119/70 100 08/30/24 04:00 67 20 114/68 100 40 08/30/24 03:00 69 20 112/66 100 08/30/24 02:00 99.0 F 73 21 116/68 100 08/30/24 01:00 75 22 118/68 100 08/30/24 00:42 40 08/30/24 00:00 100.4 F H 76 22 113/66 100 40 08/29/24 23:00 75 21 125/72 100 08/29/24 22:00 76 21 117/68 100 08/29/24 21:00 75 20 109/67 100 08/29/24 20:29 40 08/29/24 20:00 99.9 F H 77 20 108/64 100 40 08/29/24 19:00 76 20 115/70 100 08/29/24 18:00 74 21 113/69 100 08/29/24 17:00 75 20 96/57 100 08/29/24 16:00 99.5 F 76 21 102/60 100 40 08/29/24 15:44 40 08/29/24 15:00 77 20 102/60 100 08/29/24 14:00 77 21 110/64 100 08/29/24 13:00 77 20 102/59 100 08/29/24 12:00 100.4 F H 78 21 100 40 08/29/24 11:46 40 08/29/24 11:30 79 21 99 08/29/24 11:00 79 20 99 08/29/24 10:30 79 20 99 08/29/24 10:00 78 21 99 08/29/24 09:30 78 20 109/65 99 08/29/24 09:00 78 24 112/64 99 08/29/24 08:45 78 21 99 08/29/24 08:30 79 21 98 08/29/24 08:15 80 23 99 08/29/24 08:00 99.9 F H 80 20 117/69 99 40 Intake and Output 08/29/24 08/30/24 08/30/24 22:59 06:59 14:59 Intake Total 866.111 209 Output Total 0 7 Balance 866.111 202 Intake: IV 735 99 Piperacillin-Tazobactam 3 225 .375 gm In Sodium Chloride 0.9% 100 ml @ 25 mls/hr IVPB Q12H [facility] Rx# :[id number] Piperacillin-Tazobactam 3 75 .375 gm In Sodium Chloride 0.9% 100 ml @ 25 mls/hr IVPB Q8H [facility] Rx#: [id number] Pressure Bag 9 24 Vancomycin 1,500 mg In 501 Sodium Chloride 0.9% 500 ml 500 ml @ 167 mls/hr IVPB ONCE ONE Rx#: [id number] Intake, IV Titration 71.111 Amount propofoL 1,000 mg In 71.111 Empty Bag 1 bag @ 10 MCG/ KG/MIN 3.402 mls/hr IV . Q24H [facility] Rx#:[id number] Tube Feeding 30 80 Other 30 30 Output: Urine 0 7 Other: Voiding Method Indwelling Catheter Indwelling Catheter # Bowel Movements 1 Weight 79.8 kg ABP, PAP, CO, CI - Last 8 Hours Arterial Blood Pressure 142/67 Arterial Blood Pressure 144/67 Arterial Blood Pressure 130/60 Arterial Blood Pressure 123/57 Arterial Blood Pressure 118/55 Arterial Blood Pressure 124/58 Arterial Blood Pressure 129/60 Results 08/30/24 05:00 08/30/24 05:00 Cardiac Enzymes 08/29/24 08/29/24 08/29/24 Range/Units 08:26 18:15 21:32 AST (17-59) U/L Troponin I 1.030 H* 0.643 H* 0.661 H* (0.000-0.034) ng/mL 08/30/24 Range/Units 05:00 AST 140 H (17-59) U/L Troponin I (0.000-0.034) ng/mL CBC 08/30/24 Range/Units 05:00 WBC 23.8 H (3.8-10.6) k/uL RBC 3.12 L (4.30-5.90) m/uL Hgb 9.7 L (13.0-17.5) gm/dL Hct 30.6 L (39.0-53.0) % Plt Count 75 L (150-450) k/uL Comprehensive Metabolic Panel 08/30/24 Range/Units 05:00 Sodium 136 L (137-145) mmol/L Potassium 4.5 (3.5-5.1) mmol/L Chloride 101 (98-107) mmol/L Carbon Dioxide 28 (22-30) mmol/L BUN 54 H (9-20) mg/dL Creatinine 7.23 H* (0.66-1.25) mg/dL Glucose 107 H (74-99) mg/dL Calcium 7.7 L (8.4-10.2) mg/dL AST 140 H (17-59) U/L ALT 197 H (4-49) U/L Alkaline Phosphatase 71 (38-126) U/L Total Protein 5.9 L (6.3-8.2) g/dL Albumin 2.8 L (3.5-5.0) g/dL Current Medications Generic Name Dose Route Start Last Admin Trade Name Freq PRN Reason Stop Dose Admin Aspirin 81 mg 08/29/24 09:00 08/29/24 11:29 Aspirin 81 Mg PO 81 mg DAILY KATHERINE Administration Chlorhexidine Gluconate 15 ml 08/28/24 21:00 08/29/24 19:42 Chlorhexidine Gluconate 15 Ml Cup MUCOUS MEM 15 ml BID KATHERINE Administration Heparin Sodium (Porcine) 5,000 unit 08/29/24 09:00 08/29/24 19:34 Heparin Sodium,Porcine 5,000 Unit/Ml 1 Ml Vial SQ Not Given Q12HR KATHERINE Propofol 1,000 mg/ IV Solution 100 mls @ 3.402 mls/hr 08/28/24 12:45 08/30/24 02:46 IV 30 mcg/kg/min .Q24H KATHERINE 10.206 mls/hr Administration Protocol 10 MCG/KG/MIN Vasopressin 20 unit/ Sodium 51 mls @ 4.59 mls/hr 08/28/24 17:00 08/30/24 00:46 Chloride IV Not Given .Q11H7M KATHERINE Protocol 0.03 UNITS/MIN Piperacillin Sod/Tazobactam 100 mls @ 25 mls/hr 08/30/24 04:00 08/30/24 03:46 Sod 3.375 gm/ Sodium Chloride IVPB 25 mls/hr Q8H KATHERINE Administration Protocol Miscellaneous Information 1 each 08/28/24 10:00 Rx Info: Iv Contrast Was Given 1 Each [facility] MISCELLANE 08/30/24 10:00 DAILY PRN Per Protocol Miscellaneous Information 1 each 08/28/24 11:52 Vancomycin Iv Per Pharmacy 1 Each [facility] MISCELLANE DIRECTED PRN Per Protocol Protocol Naloxone HCl 0.2 mg 08/28/24 13:18 Naloxone 0.4 Mg/Ml 1 Ml Vial IV Q2M PRN Opioid Reversal Pantoprazole Sodium 40 mg 08/29/24 09:00 08/29/24 07:53 Pantoprazole 40 Mg/10 Ml Vial IV 40 mg DAILY KATHERINE Administration Intake and Output 08/29/24 08/30/24 08/30/24 22:59 06:59 14:59 Intake Total 866.111 209 Output Total 0 7 Balance 866.111 202 Intake: IV 735 99 Piperacillin-Tazobactam 3 225 .375 gm In Sodium Chloride 0.9% 100 ml @ 25 mls/hr IVPB Q12H [facility] Rx# :[id number] Piperacillin-Tazobactam 3 75 .375 gm In Sodium Chloride 0.9% 100 ml @ 25 mls/hr IVPB Q8H [facility] Rx#: [id number] Pressure Bag 9 24 Vancomycin 1,500 mg In 501 Sodium Chloride 0.9% 500 ml 500 ml @ 167 mls/hr IVPB ONCE ONE Rx#: [id number] Intake, IV Titration 71.111 Amount propofoL 1,000 mg In 71.111 Empty Bag 1 bag @ 10 MCG/ KG/MIN 3.402 mls/hr IV . Q24H [facility] Rx#:[id number] Tube Feeding 30 80 Other 30 30 Output: Urine 0 7 Other: Voiding Method Indwelling Catheter Indwelling Catheter # Bowel Movements 1 Weight 79.8 kg 08/30/24 05:00 08/30/24 05:00
--- NOTE | 2024-08-30 09:10 | XR ---
EXAMINATION TYPE: XR chest 1V portable DATE OF EXAM: 08/30/2024 5:31 AM COMPARISON: Chest radiographs from 08/29/2024 CLINICAL INDICATION: Male, 44 years old with history of Tube placement; TECHNIQUE: XR chest 1V portable Frontal view of the chest. FINDINGS: Lungs/Pleura: There is no evidence of pleural effusion, focal consolidation, or pneumothorax. Pulmonary vascularity: Unremarkable. Heart/mediastinum: Cardiomediastinal silhouette is enlarged. Musculoskeletal: No acute osseous pathology. Other findings: None Lines/Tubes: Endotracheal tube with distal tip 6.9 cm above the seth. Nasogastric tube with side-port projecting over the distal esophagus. IMPRESSION: 1. Nasogastric tube terminating in the esophagus advancement of 12 cm recommended for optimal placem ent. 2. Endotracheal tube in high position consider advancement of 4 cm for optimal placement. [facility], , 08/30/2024 9:07 AM
[2024-08-30] MEDS: cloNIDine 0.1 MG/24HR PATCH TRANSDERM SCH (10:12)
--- NOTE | 2024-08-30 11:12 | P.PN ---
Subjective patient is seen for follow-up for end-stage renal disease. Currently seen on hemodialysis. Patient is sedated and on the vent. Tolerating hemodialysis well. Objective - Vital Signs Vital signs: Vital Signs Temp 97.6 F 08/30/24 08:00 Pulse 65 08/30/24 11:00 Resp 20 08/30/24 11:00 BP 126/73 08/30/24 11:00 Pulse Ox 100 08/30/24 11:00 FiO2 40 08/30/24 11:08 Intake & Output 08/29/24 08/30/24 08/30/24 18:59 06:59 18:59 Intake Total 401.171 2793 208.963 Output Total 0 7 0 Balance 264.279 997 208.963 Weight 79.8 kg Intake: IV 100 834 31 Piperacillin-Tazobactam 3 225 .375 gm In Sodium Chloride 0.9% 100 ml @ 25 mls/hr IVPB Q12H [facility] Rx# :[id number] Piperacillin-Tazobactam 3 75 25 .375 gm In Sodium Chloride 0.9% 100 ml @ 25 mls/hr IVPB Q8H [facility] Rx#: [id number] Piperacillin-Tazobactam 3 100 .375 gm In Sodium Chloride 0.9% 100 ml @ 25 mls/hr IVPB Q8HR [facility] Rx# :[id number] Pressure Bag 33 6 Vancomycin 1,500 mg In 501 Sodium Chloride 0.9% 500 ml 500 ml @ 167 mls/hr IVPB ONCE ONE Rx#: [id number] Intake, IV Titration 164.279 77.963 Amount propofoL 1,000 mg In 164.279 77.963 Empty Bag 1 bag @ 10 MCG/ KG/MIN 3.402 mls/hr IV . Q24H [facility] Rx#:[id number] Tube Feeding 110 40 Other 60 60 Output: Urine 0 7 0 Other: Voiding Method Indwelling Catheter Indwelling Catheter Indwelling Catheter # Bowel Movements 1 ABP, PAP, CO, CI - Last Documented Arterial Blood Pressure 155/71 - Exam patient is on the vent. Examination of the heart S1 and S2 Examination lungs bilateral breath sounds are heard Abdomen is soft nontender Examination of lower extremity shows no significant edema - Labs CBC & Chem 7: 08/30/24 05:00 08/30/24 05:00 Labs: Abnormal Lab Results - Last 24 Hours (Table) 08/28/24 08/29/24 08/29/24 Range/Units 10:14 18:15 21:32 WBC (3.8-10.6) k/uL RBC (4.30-5.90) m/uL Hgb (13.0-17.5) gm/dL Hct (39.0-53.0) % RDW (11.5-15.5) % Plt Count (150-450) k/uL Neutrophils # (1.3-7.7) k/uL Lymphocytes # (1.0-4.8) k/uL ABG pO2 (83-108) mmHg ABG HCO3 (21-25) mmol/L ABG Total CO2 (19-24) mmol/L ABG O2 Saturation (94-97) % Hemoglobin (13.0-17.5) gm/dL Sodium (137-145) mmol/L BUN (9-20) mg/dL Creatinine (0.66-1.25) mg/dL Glucose (74-99) mg/dL Calcium (8.4-10.2) mg/dL Total Bilirubin (0.2-1.3) mg/dL AST (17-59) U/L ALT (4-49) U/L Troponin I 0.643 H* 0.661 H* (0.000-0.034) ng/mL Total Protein (6.3-8.2) g/dL Albumin (3.5-5.0) g/dL Hep Bs Antibody A (Negative) 08/30/24 08/30/24 08/30/24 Range/Units 05:00 05:00 05:36 WBC 23.8 H (3.8-10.6) k/uL RBC 3.12 L (4.30-5.90) m/uL Hgb 9.7 L (13.0-17.5) gm/dL Hct 30.6 L (39.0-53.0) % RDW 18.5 H (11.5-15.5) % Plt Count 75 L (150-450) k/uL Neutrophils # 22.0 H (1.3-7.7) k/uL Lymphocytes # 0.7 L (1.0-4.8) k/uL ABG pO2 188 H (83-108) mmHg ABG HCO3 30 H (21-25) mmol/L ABG Total CO2 31 H (19-24) mmol/L ABG O2 Saturation 99.7 H (94-97) % Hemoglobin 9.8 L (13.0-17.5) gm/dL Sodium 136 L (137-145) mmol/L BUN 54 H (9-20) mg/dL Creatinine 7.23 H* (0.66-1.25) mg/dL Glucose 107 H (74-99) mg/dL Calcium 7.7 L (8.4-10.2) mg/dL Total Bilirubin 1.5 H (0.2-1.3) mg/dL AST 140 H (17-59) U/L ALT 197 H (4-49) U/L Troponin I (0.000-0.034) ng/mL Total Protein 5.9 L (6.3-8.2) g/dL Albumin 2.8 L (3.5-5.0) g/dL Hep Bs Antibody (Negative) Microbiology - Last 24 Hours (Table) 08/28/24 11:42 Gram Stain - Final Sputum Sputum Culture - Final 08/28/24 13:03 Blood Culture - Preliminary Blood Assessment and Plan Assessment: 1. End-stage renal disease maintained on hemodialysis on Friday schedule. 2. Status post cardiac arrest x 3 August 28, 2024. No PE noted on CTA. 3. Hyperkalemia secondary to chronic kidney disease, post CPR improved postdialysis. 4. Hypocalcemia secondary to chronic kidney disease. Corrected calcium 7.0. Being replaced. 5. Hypertension with chronic kidney disease. 6. Chronic systolic CHF ejection fraction of 45 to 50% with moderate tricuspid regurgitation. 7. Chronic kidney disease mineral bone disease. 8. Leukocytosis. Questionable infectious versus reactive. On antibiotics. Plan: continue hemodialysis on Friday schedule
--- NOTE | 2024-08-30 11:49 | CA ---
Transthoracic Echo Report Name: Reggie Aceves Age: 44 Gender: M : 1980 Exam Date: 08/30/2024 07:47 Exam Location: [place] [facility] Ht (in): 72 Wt (lb): 176 Ordering Physician: Ki Christianson MD Attending/Referring Phys: T[employer] Test[employer] Worker Mariza Myers RDCS Procedure CPT: Indications: Cardiac Arrest Cardiac Hx: Technical Quality: Good Contrast 1: Total Dose (mL): Contrast 2: Total Dose (mL): MEASUREMENTS (Male / Female) Normal Values 2D ECHO LV Diastolic Diameter PLAX 4.7 cm 4.2 - 5.9 / 3.9 - 5.3 cm LV Systolic Diameter PLAX 3.9 cm IVS Diastolic Thickness 1.6 cm 0.6 - 1.0 / 0.6 - 0.9 cm LVPW Diastolic Thickness 1.4 cm 0.6 - 1.0 / 0.6 - 0.9 cm LV Relative Wall Thickness 0.6 LVOT Diameter 2.4 cm LV Diastolic Volume MOD BP 257.2 cm??? 67 - 155 / 56 - 104 cm??? LV Systolic Volume MOD BP 160.5 cm??? 22 - 58 / 19 - 49 cm??? LV Ejection Fraction MOD BP 37.6 % >= 55 % LV Cardiac Index MOD BP 3115.5 cm???/min???m??? LV Diastolic Volume MOD 4C 263.1 cm??? LV Systolic Volume MOD 4C 157.6 cm??? LV Ejection Fraction MOD 4C 40.1 % LV Cardiac Index MOD 4C 3398.4 cm???/min???m??? LV Diastolic Length 4C 10.6 cm LV Systolic Length 4C 9.6 cm LV Diastolic Volume MOD 2C 240.9 cm??? LV Systolic Volume MOD 2C 162.6 cm??? LV Ejection Fraction MOD 2C 32.5 % LV Cardiac Index MOD 2C 2522.3 cm???/min???m??? LV Diastolic Length 2C 10.1 cm LV Systolic Length 2C 9.5 cm LA Volume 107.2 cm??? 18 - 58 / 22 - 52 cm??? LA Volume Index 53.2 cm???/m??? 16 - 28 cm???/m??? DOPPLER AV Peak Velocity 122.0 cm/s AV Peak Gradient 5.9 mmHg AV Mean Velocity 84.4 cm/s AV Mean Gradient 3.2 mmHg AV Velocity Time Integral 26.3 cm LVOT Peak Velocity 98.5 cm/s LVOT Peak Gradient 3.9 mmHg LVOT Velocity Time Integral 19.9 cm LVOT Stroke Volume 93.8 cm??? LVOT Stroke Volume Index 46.5 ml/m??? LVOT Cardiac Index 3024.6 cm???/min???m??? AV Area Cont Eq vti 3.6 cm??? AV Area Cont Eq pk 3.8 cm??? MV Area PHT 5.7 cm??? Mitral E Point Velocity 75.1 cm/s Mitral A Point Velocity 40.2 cm/s Mitral E to A Ratio 1.9 MV Deceleration Time 132.1 ms TR Peak Velocity 260.9 cm/s TR Peak Gradient 27.2 mmHg Right Atrial Pressure 20.0 mmHg Pulmonary Artery Systolic Pressu 47.2 mmHg Right Ventricular Systolic Press 47.2 mmHg PV Peak Velocity 72.2 cm/s PV Peak Gradient 2.1 mmHg FINDINGS Left Ventricle Left ventricular ejection fraction is estimated at 35-40 %. Moderately increased septal wall thickness. Severely increased left ventricular diastolic volume. Severely increased left ventricular systolic volume. Moderately decreased left ventricular ejection fraction. Right Ventricle Moderate right ventricular dilatation with moderately reduced function. Moderate pulmonary hypertension. Right Atrium Severe right atrial dilatation. Left Atrium Severely increased left atrial volume. Mildly increased left atrial area. Mitral Valve Mitral valve thickened. No evidence for mitral valve prolapse. No mitral stenosis. Mild to moderate mitral regurgitation. Aortic Valve Trileaflet aortic valve. No aortic valve stenosis or regurgitation. Tricuspid Valve Structurally normal tricuspid valve. No tricuspid stenosis. Moderate tricuspid regurgitation. Pulmonic Valve Structurally normal pulmonic valve. No pulmonic stenosis. Mild pulmonic regurgitation. Pericardium No pericardial effusion. Aorta Aortic annulus normal. CONCLUSIONS Dilated LV with impaired LV systolic function and EF between 35 to 40%. Left ventricular hypertrophy was seen Mild to moderate mitral regurgitation Moderate pulmonary hypertension Moderately dilated RV No pericardial effusion Previewed by: Dr. Jasen Lara MD (Electronically Signed) Final Date: 30 August 2024 11:48
[2024-08-30 12:08] LABS: Glucose,Whole Blood 103 mg/dL (70-110)
--- NOTE | 2024-08-30 12:09 | P.PN ---
Subjective Progress Note Date: 08/30/24 Principal diagnosis: Reason for follow-up is sepsis/pneumonia Patient is a 44-year-old -[place] male with a past medical history significant for hypertension hyperlipidemia RI coronary artery disease end-stage renal disease on hemodialysis through the right upper extremity AV fistula patient has been brought into the hospital for evaluation of mental status changes did have episode of vomiting at home on arrival to the ER the patient stopped breathing and did have a cardiopulmonary resuscitation was intubated. On today's evaluation that is 08/30/2024,the patient did have a low-grade fever 100.4 at midnight, the patient is afebrile since then patient is hemodynamically stable not requiring any pressor support FiO2 is currently stable at 40%. The patient white count is down to 23.8 creatinine is 7.23 Vanco random of 25 blood sputum culture has been negative so far Objective - Vital Signs Vital signs: Vital Signs Temp 97.6 F 08/30/24 08:00 Pulse 66 08/30/24 10:00 Resp 16 08/30/24 10:00 BP 115/70 08/30/24 10:00 Pulse Ox 100 08/30/24 10:00 FiO2 40 08/30/24 08:00 Intake & Output 08/29/24 08/30/24 08/30/24 18:59 06:59 18:59 Intake Total 482.362 7399 198.963 Output Total 0 7 0 Balance 264.279 997 198.963 Weight 79.8 kg Intake: IV 100 834 31 Piperacillin-Tazobactam 3 225 .375 gm In Sodium Chloride 0.9% 100 ml @ 25 mls/hr IVPB Q12H [facility] Rx# :[id number] Piperacillin-Tazobactam 3 75 25 .375 gm In Sodium Chloride 0.9% 100 ml @ 25 mls/hr IVPB Q8H [facility] Rx#: [id number] Piperacillin-Tazobactam 3 100 .375 gm In Sodium Chloride 0.9% 100 ml @ 25 mls/hr IVPB Q8HR [facility] Rx# :[id number] Pressure Bag 33 6 Vancomycin 1,500 mg In 501 Sodium Chloride 0.9% 500 ml 500 ml @ 167 mls/hr IVPB ONCE ONE Rx#: [id number] Intake, IV Titration 164.279 77.963 Amount propofoL 1,000 mg In 164.279 77.963 Empty Bag 1 bag @ 10 MCG/ KG/MIN 3.402 mls/hr IV . Q24H [facility] Rx#:[id number] Tube Feeding 110 30 Other 60 60 Output: Urine 0 7 0 Other: Voiding Method Indwelling Catheter Indwelling Catheter # Bowel Movements 1 ABP, PAP, CO, CI - Last Documented Arterial Blood Pressure 143/67 - Exam GENERAL DESCRIPTION: Middle-age male intubated on the vent RESPIRATORY SYSTEM: Unlabored breathing , decreased breath sounds at bases HEART: S1 S2 regular rate and rhythm , ABDOMEN: Soft , no tenderness EXTREMITIES: No edema feet - Labs CBC & Chem 7: 08/30/24 05:00 08/30/24 05:00 Labs: Abnormal Lab Results - Last 24 Hours (Table) 08/28/24 08/29/24 08/29/24 Range/Units 10:14 04:30 18:15 WBC (3.8-10.6) k/uL RBC (4.30-5.90) m/uL Hgb (13.0-17.5) gm/dL Hct (39.0-53.0) % RDW (11.5-15.5) % Plt Count (150-450) k/uL Neutrophils # (1.3-7.7) k/uL Lymphocytes # (1.0-4.8) k/uL ABG pO2 (83-108) mmHg ABG HCO3 (21-25) mmol/L ABG Total CO2 (19-24) mmol/L ABG O2 Saturation (94-97) % Hemoglobin (13.0-17.5) gm/dL Sodium (137-145) mmol/L BUN (9-20) mg/dL Creatinine (0.66-1.25) mg/dL Glucose (74-99) mg/dL Calcium (8.4-10.2) mg/dL Total Bilirubin (0.2-1.3) mg/dL AST (17-59) U/L ALT (4-49) U/L Troponin I 0.643 H* (0.000-0.034) ng/mL Total Protein (6.3-8.2) g/dL Albumin (3.5-5.0) g/dL Procalcitonin >100.00 H (0.02-0.50) ng/mL Hep Bs Antibody A (Negative) 08/29/24 08/30/24 08/30/24 Range/Units 21:32 05:00 05:00 WBC 23.8 H (3.8-10.6) k/uL RBC 3.12 L (4.30-5.90) m/uL Hgb 9.7 L (13.0-17.5) gm/dL Hct 30.6 L (39.0-53.0) % RDW 18.5 H (11.5-15.5) % Plt Count 75 L (150-450) k/uL Neutrophils # 22.0 H (1.3-7.7) k/uL Lymphocytes # 0.7 L (1.0-4.8) k/uL ABG pO2 (83-108) mmHg ABG HCO3 (21-25) mmol/L ABG Total CO2 (19-24) mmol/L ABG O2 Saturation (94-97) % Hemoglobin (13.0-17.5) gm/dL Sodium 136 L (137-145) mmol/L BUN 54 H (9-20) mg/dL Creatinine 7.23 H* (0.66-1.25) mg/dL Glucose 107 H (74-99) mg/dL Calcium 7.7 L (8.4-10.2) mg/dL Total Bilirubin 1.5 H (0.2-1.3) mg/dL AST 140 H (17-59) U/L ALT 197 H (4-49) U/L Troponin I 0.661 H* (0.000-0.034) ng/mL Total Protein 5.9 L (6.3-8.2) g/dL Albumin 2.8 L (3.5-5.0) g/dL Procalcitonin (0.02-0.50) ng/mL Hep Bs Antibody (Negative) 08/30/24 Range/Units 05:36 WBC (3.8-10.6) k/uL RBC (4.30-5.90) m/uL Hgb (13.0-17.5) gm/dL Hct (39.0-53.0) % RDW (11.5-15.5) % Plt Count (150-450) k/uL Neutrophils # (1.3-7.7) k/uL Lymphocytes # (1.0-4.8) k/uL ABG pO2 188 H (83-108) mmHg ABG HCO3 30 H (21-25) mmol/L ABG Total CO2 31 H (19-24) mmol/L ABG O2 Saturation 99.7 H (94-97) % Hemoglobin 9.8 L (13.0-17.5) gm/dL Sodium (137-145) mmol/L BUN (9-20) mg/dL Creatinine (0.66-1.25) mg/dL Glucose (74-99) mg/dL Calcium (8.4-10.2) mg/dL Total Bilirubin (0.2-1.3) mg/dL AST (17-59) U/L ALT (4-49) U/L Troponin I (0.000-0.034) ng/mL Total Protein (6.3-8.2) g/dL Albumin (3.5-5.0) g/dL Procalcitonin (0.02-0.50) ng/mL Hep Bs Antibody (Negative) Microbiology - Last 24 Hours (Table) 08/28/24 11:42 Gram Stain - Final Sputum Sputum Culture - Final 08/28/24 13:03 Blood Culture - Preliminary Blood Assessment and Plan (1) Pneumonia Current Visit: Yes Status: Acute Code(s): J18.9 - PNEUMONIA, UNSPECIFIED ORGANISM SNOMED Code(s): 986198544 (2) Sepsis Current Visit: Yes Status: Acute Code(s): A41.9 - SEPSIS, UNSPECIFIED ORGANISM SNOMED Code(s): 11608058 Plan: 1patient presenting to the hospital with decreased level of responsiveness subsequently the patient did have a cardiac arrest requiring resuscitation did have significant elevated white count hypotension elevated lactic acid meeting currently for SIRS/sepsis with concern for possible aspiration pneumonitis to be the likely etiology 2-patient did have procalcitonin more than 100 sputum culture have been negative and resistant pathogen and blood culture currently pending 3we will continue with the Zosyn however discontinue vancomycin as no MRSA also check an ultrasound of the liver gallbladder area with elevated liver enzymes Dictation was produced using [employer] dictation software. please excuse any grammatical, word or spelling errors. Time with Patient: Less than 30
[2024-08-30] MEDS: carvediloL 3.125 MG TAB PO SCH (12:34)
--- NOTE | 2024-08-30 13:43 | P.PN ---
Subjective Progress Note Date: 08/30/24 Principal diagnosis: Cardiac arrest/PEA x 3 This is a 44-year-old male patient with incisional disease on hemodialysis. The patient came in to the emergency department this morning with altered mentation. Upon arrival, the patient went apneic and he went into a pulseless PEA rhythm. As such, he was started on resuscitation based on the ACLS protocol and the patient was given CPR and he was intubated. Noted he underwent a 2 additional episodes of cardiac arrest. Noted initial code was 42 minutes, subsequent codes for for 6 minutes and 7 minutes. During the second code, he received a total of 2 doses of epinephrine and a third code he was given 3 doses of epinephrine. He was also given calcium gluconate and bicarb. At the time of my arrival, there was return of spontaneous circulation and the patient was already on pressors and he was on norepinephrine running at 0.06 mcg/kg/min and he had received a total of 2 L of IV fluid bolus. He was in the mechanical ventilator assist- control mode with rate of 20, tidal volume of 350, FiO2 of 100% with a PEEP of 5. He is post intubation chest x-ray was reviewed and it showed cardiomegaly and volume overload. ET tube was adjusted. NG tube was in place. There was marked cardiomegaly. Subsequently, the patient was given a CT angiogram of the chest that showed no evidence of any pulmonary embolism. There was some small bibasilar infiltrates/effusions and marked cardiomegaly. CAT scan of the brain was also done that showed no acute intracranial bleed and the patient had scarring of his vitreous in his left globe. EKG was consistent with normal sinus rhythm. No ST segment elevations or depressions. The patient's white cell count was at 31.6. Hemoglobin was 11 and a platelet count was 61. INR was at 1.8 and a D-dimer was 9.0 with a PTT of 35. Postintubation blood gas showed a pH of 7.39 with a pCO2 of 48 pO2 of more than 420. BUN was 31 with a creatinine of 7.4 and a sodium level was at 135 and a potassium level was 6 with a chloride of 98 and a bicarb level of 20. Initial lactic acid level was at 8.0. proBNP level was more than 100,000 and the troponin was at 0.07. LFTs were essentially within normal limits. The patient was also started on low-dose propofol running at 10 mcg/kg/min. No additional information is available. According to the , the patient was confused yesterday after dialysis. No significant ultrafiltration was done. No reported fever. No falls. No head trauma. He has a functional AV fistula in the right upper extremity. The patient was in the hospital back in May 2024 and at that time, he was treated for shortness of breath and nausea and he continues to undergo hemodialysis with good results Comorbidities include end-stage renal disease on hemodialysis, diabetes mellitus type 2, diabetic neuropathy, coronary artery disease with prior PCI, ischemic cardiomyopathy with ejection fraction of 45 to 50% and the echocardiogram that was done on 03/08/2024 showed an EF of around 45 to 50% with global hypokinesis and severe thickness of the LV wall with small pericardial effusion.. She also has anemia of chronic disease and hyperlipidemia. On 08/29/2024, the patient is being seen for a follow-up. The patient is postcardiac arrest and the patient is currently in the intensive care and intubated on the mechanical ventilator. Noted his potassium level was also elevated and the patient was dialyzed yesterday. On today's evaluation, the patient is on propofol for sedation. Calm and comfortable. Synchronous with mechanical ventilator with a rate of 20, tidal volume of 350, FiO2 40% with a PEEP of 5. Blood gas showed a pH of 7.45 with a pCO2 of 47 and pO2 of 147. The patient was taken off norepinephrine at around midnight. He is also off vasopressin. IV fluids are currently at KVO. No urine output. Lactic acid level is dropped down to 1.3. Hemodialysis was done yesterday with a total of 1 L of ultrafiltration. Meanwhile, his white cell count remains elevated at 30 and the patient remains on a combination of Zosyn and vancomycin pending further cultures. BUN is 22 with a creatinine of 3.57. Potassium levels is down to 3.5. Bicarb is at 19. Sodium is at 138. The hemoglobin is stable at 11. Chest x-ray findings from today are essentially stable without any significant abnormalities. ET tube needs to be pushed in by around 2 cm. There is improved aeration in the right lung base along with ongoing cardiomegaly. No seizure activity. Patient was seen today on 08/30/2024, patient remains in the ICU, intubated and mechanically ventilated, he is on assist-control rate of 20 tidal volume 350 FiO2 40% and PEEP of 5 ABG showed a pO2 of 188 pCO2 45 pH of 7.43, patient is on propofol at 30 mcg/kg/min, patient is receiving hemodialysis during my evaluation. Patient is not requiring any pressors at this point, he is tolerating hemodialysis quite well. Looking back at the history of this patient, apparently he coded x 3. Mentation is still poor, the patient may have sustained anoxic brain injury however I plan to assess neurologically after being off sedation/propofol for a few hours. Not quite ready for any weaning trials at this point yet. Chest x-ray showed no evidence of pneumonia, no evidence of pulmonary edema, however his endotracheal tube seems to be sitting high, it will be advanced as [id number] considering the tube is only size 6, I will change the tube today.Patient continues to have leukocytosis with WBC of 23.8 hemoglobin is 9.7, electrolytes are normal BUN is 54 creatinine 7.23 procalcitonin level on admission is over 100. Patient remains empirically on Zosyn as per infectious disease on the case. Vancomycin has been discontinued. Objective - Vital Signs Vital signs: Vital Signs Temp 97.0 F L 08/30/24 12:00 Pulse 67 08/30/24 13:00 Resp 20 08/30/24 13:00 BP 135/76 08/30/24 13:00 Pulse Ox 100 08/30/24 13:00 FiO2 40 08/30/24 12:00 Intake & Output 08/29/24 08/30/24 08/30/24 18:59 06:59 18:59 Intake Total 805.591 6689 248.963 Output Total 0 7 0 Balance 264.279 997 248.963 Weight 79.8 kg Intake: IV 100 834 31 Piperacillin-Tazobactam 3 225 .375 gm In Sodium Chloride 0.9% 100 ml @ 25 mls/hr IVPB Q12H [facility] Rx# :[id number] Piperacillin-Tazobactam 3 75 25 .375 gm In Sodium Chloride 0.9% 100 ml @ 25 mls/hr IVPB Q8H [facility] Rx#: [id number] Piperacillin-Tazobactam 3 100 .375 gm In Sodium Chloride 0.9% 100 ml @ 25 mls/hr IVPB Q8HR [facility] Rx# :[id number] Pressure Bag 33 6 Vancomycin 1,500 mg In 501 Sodium Chloride 0.9% 500 ml 500 ml @ 167 mls/hr IVPB ONCE ONE Rx#: [id number] Intake, IV Titration 164.279 77.963 Amount propofoL 1,000 mg In 164.279 77.963 Empty Bag 1 bag @ 10 MCG/ KG/MIN 3.402 mls/hr IV . Q24H [facility] Rx#:[id number] Tube Feeding 110 50 Other 60 90 Output: Urine 0 7 0 Other: Voiding Method Indwelling Catheter Indwelling Catheter Indwelling Catheter # Bowel Movements 1 1 ABP, PAP, CO, CI - Last Documented Arterial Blood Pressure 145/66 - Exam General: Revealed 44-year-old -[place] male intubated mechanically ventilated. Head: Atraumatic, normocephalic Neck supple no neck masses no JVD no stridor Lungs diminished breath sound bilaterally no crackles rhonchi or wheezes Cardiac distant S1-S2, no S3 gallop, no murmur. Abdominal exam: Soft nontender no megaly no rebound no guarding Extremities: No clubbing edema or cyanosis Skin: No rashes Neurologic: Could not assess, patient is on propofol, sedated, and could not assess mental status. Psychiatric: Could not assess. - - Labs CBC & Chem 7: 08/30/24 05:00 08/30/24 05:00 Labs: Abnormal Lab Results - Last 24 Hours (Table) 08/28/24 08/29/24 08/29/24 Range/Units 10:14 18:15 21:32 WBC (3.8-10.6) k/uL RBC (4.30-5.90) m/uL Hgb (13.0-17.5) gm/dL Hct (39.0-53.0) % RDW (11.5-15.5) % Plt Count (150-450) k/uL Neutrophils # (1.3-7.7) k/uL Lymphocytes # (1.0-4.8) k/uL ABG pO2 (83-108) mmHg ABG HCO3 (21-25) mmol/L ABG Total CO2 (19-24) mmol/L ABG O2 Saturation (94-97) % Hemoglobin (13.0-17.5) gm/dL Sodium (137-145) mmol/L BUN (9-20) mg/dL Creatinine (0.66-1.25) mg/dL Glucose (74-99) mg/dL Calcium (8.4-10.2) mg/dL Total Bilirubin (0.2-1.3) mg/dL AST (17-59) U/L ALT (4-49) U/L Troponin I 0.643 H* 0.661 H* (0.000-0.034) ng/mL Total Protein (6.3-8.2) g/dL Albumin (3.5-5.0) g/dL Hep Bs Antibody A (Negative) 08/30/24 08/30/24 08/30/24 Range/Units 05:00 05:00 05:36 WBC 23.8 H (3.8-10.6) k/uL RBC 3.12 L (4.30-5.90) m/uL Hgb 9.7 L (13.0-17.5) gm/dL Hct 30.6 L (39.0-53.0) % RDW 18.5 H (11.5-15.5) % Plt Count 75 L (150-450) k/uL Neutrophils # 22.0 H (1.3-7.7) k/uL Lymphocytes # 0.7 L (1.0-4.8) k/uL ABG pO2 188 H (83-108) mmHg ABG HCO3 30 H (21-25) mmol/L ABG Total CO2 31 H (19-24) mmol/L ABG O2 Saturation 99.7 H (94-97) % Hemoglobin 9.8 L (13.0-17.5) gm/dL Sodium 136 L (137-145) mmol/L BUN 54 H (9-20) mg/dL Creatinine 7.23 H* (0.66-1.25) mg/dL Glucose 107 H (74-99) mg/dL Calcium 7.7 L (8.4-10.2) mg/dL Total Bilirubin 1.5 H (0.2-1.3) mg/dL AST 140 H (17-59) U/L ALT 197 H (4-49) U/L Troponin I (0.000-0.034) ng/mL Total Protein 5.9 L (6.3-8.2) g/dL Albumin 2.8 L (3.5-5.0) g/dL Hep Bs Antibody (Negative) Microbiology - Last 24 Hours (Table) 08/28/24 11:42 Gram Stain - Final Sputum Sputum Culture - Final 08/28/24 13:03 Blood Culture - Preliminary Blood Assessment and Plan Assessment: Impression Acute cardiopulmonary arrest and the patient had PEA cardiac arrest x 3 Possible anoxic brain injury Acute hypoxic respiratory failure, secondary to above Hyperkalemia with a potassium level of 6.8, improved post hemodialysis potassium level is normalized Acute hypotension, postcardiac arrest. Required pressors, could be cardiogenic or hypovolemic in nature, or could be related to both Acute leukocytosis, rule out reactive, rule out sepsis/infection Acute leukocytosis postcardiac arrest, currently on Zosyn procalcitonin level extremely elevated End stage renal disease maintained on MWF hemodialysis schedule undergoing hemodialysis today. Benign essential hypertension Underlying coronary artery disease and previous PCI History of ischemic cardiomyopathy and LV dysfunction with ejection fraction of 45 to 50% History of chronic diastolic congestive heart failure Type 2 diabetes Chronic anemia GERD without esophagitis History of diabetic peripheral neuropathy Dyslipidemia Recommendation: Continue ventilatory support Continue hemodynamic support presently patient is not requiring pressors Continue hemodialysis Continue nutritional support Continue antibiotics empirically and adjust based on cultures patient is being followed by infectious disease Continue hemodialysis as felt necessary by nephrology on the case Continue GI and DVT prophylaxis patient is on subcu heparin Continue to monitor electrolytes and sugar and address accordingly Patient could be given a trial of sedation holiday today, and address his mental status and whether it is appropriate for weaning trials Patient is critically ill Critical care time is over 30 minutes Time with Patient: Greater than 30
--- NOTE | 2024-08-30 15:57 | P.PN ---
Subjective Progress Note Date: 08/30/24 Interval History: patient is a 44-year-old gentleman past medical history significant for end- stage renal disease on dialysis who presented to the ER for altered mental status. History was limited as patient was altered. According to patient was acting confused yesterday after dialysis. There was no complaint of fever or chills. Later in the night noticed the patient was having difficulty in breathing. This morning patient was found to be very confused so was brought to the ER. By the time patient came to the ER patient stopped breathing with loss of pulse,, CPR was initiated, ROSC was achieved but pulse was again lost with further 2 rounds of CPR, patient received epi, sodium bicarb and in the process. Patient was intubated in the process. Initial lab work done in the ER showed WBC 31.6, hemoglobin 11, platelet count 61, D-dimer 9.08, sodium 135, potassium 5, BUN 31, creatinine 7.48, calcium 8.2 troponin 0.072 EKG done in the ER showed heart rate of66 , no ST segment elevation or depression seen, no T-wave inversions seen. Chest x-ray done in the ER showed marked cardiomegaly, acute cardiopulmonary disease involving the right lung CT head done showed no acute intracranial process CTA chest done showed no evidence of pulmonary embolism, small bibasilar infiltrates and effusions seen Patient admitted to internal medicine service in ICU 08/29. Patient seen and examined. Blood work done showed WBC 30.1, hemoglobin 11, platelet count 66, sodium 130, potassium 3.5, BUN 22, creatinine 3.57, calcium 5.4 AST 218, ALT 140 patient is currently off all the pressors. Patient sedation was weaned off and patient was opening his eyes and trying to get up. 08/30/2024 Patient remains in the ICU, intubated and on mechanical ventilation, ICU following, remains on propofol, was receiving hemodialysis today during evaluation. Not on vasopressors. Concern for anoxic brain injury, neurology evaluation after sedation break. Chest x-ray negative for acute process. Labs showed WBCs 23.8, hemoglobin 9.7, BUN 54, creatinine 7.23. Procalcitonin on admission was over 100. Patient on Zosyn per infectious disease, vancomycin has been discontinued. ICU, nephrology, infectious disease and cardiology following. They recommended ultrasound liver and gallbladder. Cardiology recommended to resume beta-jamarcus and clonidine to prevent blood pressure rebound. Assessment and plan: Septic shock--unknown source Cardiac arrest with pulseless electrical activity Acute metabolic encephalopathy Acute hypoxemic respiratory failure requiring mechanical ventilation Hyponatremia Hyperkalemia Acute transaminitis Thrombocytopenia End-stage renal disease on dialysis Lactic acidosis Hypertension Coronary artery disease with prior PCI. Ischemic cardiomyopathy EF 45-50% Chronic diastolic heart failure Diabetes mellitus type 2 Anemia of chronic disease Gastroesophageal reflux disease Diabetic peripheral neuropathy Dyslipidemia Plan: Continue telemetry monitoring Continue vent management Aggressive bronchopulmonary hygiene Monitor troponins. Continue tube feeding ICU following Nephrology following ID consultedcontinandrew Gilmore [place] vancomycin, ultrasound of the gallbladder. Consulted cardiology following -consulted cardiology -- Echocardiogram --ultrasound liver and gallbladder -- Neurology consult for evaluation of anoxic brain injury. Monitor vital signs and labs Labs and medication were reviewed. Continue same treatment. Further recommendations as per clinical course of the patient PHYSICAL EXAMINATION: GENERAL: The patient is A&O x0. Intubated on mechanical ventilation. HEENT: EOMI, Sclerae anicteric, Moist Mucous membranes Neck: Supple, Non tender, No JVD PULMONARY: Equal breath souds B/L, No wheezing, No crackles. CARDIOVASCULAR: S1, S2 present. No murmurs, rubs, or gallops. ABDOMEN: Soft, nontender, nondistended, normoactive bowel sounds. No guarding or rebound tenderness. MUSCULOSKELETAL: + edema, No cyanosis. No clubbing. Normal ROM. Intact peripheral pulses. NEUROLOGICAL: CN 2-12 grossly intact. No FND Skin: No Rash REVIEW OF SYSTEMS: Limited review of system, patient A and O x 0, intubated and on mechanical ventilation. Dictation was produced using [employer] dictation software. please excuse any grammatical, word or spelling errors. Objective - Vital Signs Vital signs: Vital Signs Temp 97.0 F L 08/30/24 12:00 Pulse 64 08/30/24 15:00 Resp 20 08/30/24 15:00 BP 116/69 08/30/24 15:00 Pulse Ox 100 08/30/24 15:00 FiO2 40 08/30/24 15:24 Intake & Output 08/29/24 08/30/24 08/30/24 18:59 06:59 18:59 Intake Total 735.660 3166 280.035 Output Total 0 7 0 Balance 264.279 997 280.035 Weight 79.8 kg Intake: IV 100 834 31 Piperacillin-Tazobactam 3 225 .375 gm In Sodium Chloride 0.9% 100 ml @ 25 mls/hr IVPB Q12H [facility] Rx# :[id number] Piperacillin-Tazobactam 3 75 25 .375 gm In Sodium Chloride 0.9% 100 ml @ 25 mls/hr IVPB Q8H [facility] [place] Rx#: [id number] Piperacillin-Tazobactam 3 100 .375 gm In Sodium Chloride 0.9% 100 ml @ 25 mls/hr IVPB Q8HR [facility] [place] Rx# :[id number] Pressure Bag 33 6 Vancomycin 1,500 mg In 501 Sodium Chloride 0.9% 500 ml 500 ml @ 167 mls/hr IVPB ONCE ONE Rx#: [id number] Intake, IV Titration 164.279 109.035 Amount propofoL 1,000 mg In 164.279 109.035 Empty Bag 1 bag @ 10 MCG/ KG/MIN 3.402 mls/hr IV . Q24H [facility] Rx#:[id number] Tube Feeding 110 50 Other 60 90 Output: Urine 0 7 0 Other: Voiding Method Indwelling Catheter Indwelling Catheter Indwelling Catheter # Bowel Movements 1 1 ABP, PAP, CO, CI - Last Documented Arterial Blood Pressure 124/62 - Labs CBC & Chem 7: 08/30/24 05:00 08/30/24 05:00 Labs: Abnormal Lab Results - Last 24 Hours (Table) 08/29/24 08/29/24 08/30/24 Range/Units 18:15 21:32 05:00 WBC (3.8-10.6) k/uL RBC (4.30-5.90) m/uL Hgb (13.0-17.5) gm/dL Hct (39.0-53.0) % RDW (11.5-15.5) % Plt Count (150-450) k/uL Neutrophils # (1.3-7.7) k/uL Lymphocytes # (1.0-4.8) k/uL ABG pO2 (83-108) mmHg ABG HCO3 (21-25) mmol/L ABG Total CO2 (19-24) mmol/L ABG O2 Saturation (94-97) % Hemoglobin (13.0-17.5) gm/dL Sodium 136 L (137-145) mmol/L BUN 54 H (9-20) mg/dL Creatinine 7.23 H* (0.66-1.25) mg/dL Glucose 107 H (74-99) mg/dL Calcium 7.7 L (8.4-10.2) mg/dL Total Bilirubin 1.5 H (0.2-1.3) mg/dL AST 140 H (17-59) U/L ALT 197 H (4-49) U/L Troponin I 0.643 H* 0.661 H* (0.000-0.034) ng/mL Total Protein 5.9 L (6.3-8.2) g/dL Albumin 2.8 L (3.5-5.0) g/dL 08/30/24 08/30/24 Range/Units 05:00 05:36 WBC 23.8 H (3.8-10.6) k/uL RBC 3.12 L (4.30-5.90) m/uL Hgb 9.7 L (13.0-17.5) gm/dL Hct 30.6 L (39.0-53.0) % RDW 18.5 H (11.5-15.5) % Plt Count 75 L (150-450) k/uL Neutrophils # 22.0 H (1.3-7.7) k/uL Lymphocytes # 0.7 L (1.0-4.8) k/uL ABG pO2 188 H (83-108) mmHg ABG HCO3 30 H (21-25) mmol/L ABG Total CO2 31 H (19-24) mmol/L ABG O2 Saturation 99.7 H (94-97) % Hemoglobin 9.8 L (13.0-17.5) gm/dL Sodium (137-145) mmol/L BUN (9-20) mg/dL Creatinine (0.66-1.25) mg/dL Glucose (74-99) mg/dL Calcium (8.4-10.2) mg/dL Total Bilirubin (0.2-1.3) mg/dL AST (17-59) U/L ALT (4-49) U/L Troponin I (0.000-0.034) ng/mL Total Protein (6.3-8.2) g/dL Albumin (3.5-5.0) g/dL Microbiology - Last 24 Hours (Table) 08/28/24 11:42 Gram Stain - Final Sputum Sputum Culture - Final 08/28/24 13:03 Blood Culture - Preliminary Blood
[2024-08-30 17:58] LABS: Glucose,Whole Blood 72 mg/dL (70-110)
--- NOTE | 2024-08-30 18:50 | P.CNNES ---
History of Present Illness Consult date: 08/30/24 Requesting physician: Meenakshi Burger Reason for Consult: Anoxic brain injury History of Present Illness: Patient is a 44-year-old left-handed male came to the hospital by ambulance 2 days ago, on 08/28/2024 at 9:23 AM. Patient's was present, who provided with a history. She mentions that patient had hemodialysis on Friday, and afterwards he was not feeling well. he has for the oatmeal, and patient's brought the broth, and she found him laying in the hallway and said he was crawling to the bathroom. He did not make it to the bathroom. He then started throwing up, which was not a lot, only mouthful and dated 3-4 times. He was little confused at around 7 to 8 PM, as he was hallucinating, thinking his previous girlfriend Avelina was coming to pick him up. He was telling something about old [employer] movie. Patient's mentions that after hemodialysis he is does get very tired and then can feel nauseous but the hallucinations was new. At night he started feeling better. Next morning on Friday, on the day of admission, he woke up not feeling well, body aching, tossing and turning. He then became unresponsive. As per EMS flowsheet, when they arrived, patient was sitting in the hallway against the wall. Patient was initially unresponsive, but skin was normal in color, cool to touch and dry. Patient's respirations were regular. Radial pulse was weak upon palpation. Patient's had mentioned that patient had dialysis the day prior, around noon when she picked the patient up, he was lethargic and not feeling well. Patient stayed lethargic and began vomiting. Patient was diaphoretic. He could not check his blood sugar as he could not find his glucometer. Patient's gave him food and juice and he became more alert and was acting normal throughout the day and night. This morning patient was tossing and turning in bed, stating he was uncomfortable. Patient tried to crawl to the bathroom and became unresponsive. Patient's blood glucose checked at that time was 121. Patient slowly became more responsive and reactive. Patient began speaking on his own and was alert and orient x 4 but still lethargic. Patient denies any chest pain, shortness of breath any nausea or pain. Patient was complaining of neck hurting and body aching all over. Patient denied any recent use of pain medication. Patient remained alert and orient x 4 while waiting for his room in the ER. Patient's blood pressure was 159/130, then went up to 161/127, pulse rate 76 respiration 18 saturation 100%. Vital signs on arrival blood pressure 74/56, pulse rate 56, respiration 5. Saturation 98%. About 10 to 15 minutes after arriving to the ER, patient had cardiac arrest x 3, the first 1 lasted for 3 minutes, the second 1 6 minutes and the last one 7 minutes. Patient has been intubated since then. Patient currently on propofol 40 mcg/kg/min. Also on vancomycin. Patient's blood test on arrival WBC 31.6, hemoglobin 11, with elevated MCV 100.9, platelets 61. INR 1.8, D-dimer 9.08. pCO2 was 40 with pH 7.39 on the ABG. Sodium 135 potassium 6.0, BUN 31 creatinine 7.48. Hepatic panel normal, troponin 0.072. Subsequently his liver enzymes have gone up and natriuretic pro BNP is 96,600. Repeat potassium was 6.9, and the blood was not hemolyzed. Lactate 10.6. Troponin 1.030. CT head revealed no acute process. Abnormal left globe. I personally reviewed CT head agree with the findings. Chest x-ray showed ET tube 6.1 cm above the seth. NG tube within the stomach. Marked cardiomegaly. Acute cardiopulmonary disease involving the right lung. CTA of the chest showed no evidence of pulmonary embolism. Small bibasilar infiltrates and effusion. Marked cardiomegaly. Review of Systems Other review of system as per report from patient's . ROS unobtainable: due to mental status Past Medical History Past Medical History: Coronary Artery Disease (CAD), Heart Failure, Eye Disorder, GERD/Reflux, Hyperlipidemia, Hypertension, Myocardial Infarction ([place]), Renal Disease, Respiratory Disorder Additional Past Medical History / Comment(s): Pt recently admitted to [facility] on 05/09/20 with acute on chronic CHF/amyloidosis with generalized anasarca/acute on chronic kidney injury/acute anemia/advanced CAD/valvular disease/severe pulmonary htn/abnormal liver test/hyperlipidemia. Other hx: IDDM type II, pt states informed he had kidney disease in Feb, 2020 then ESRD diagnosed 05/09/20 with hemodialysis M/W/F,neuropathy bilateral feet, L foot ulcer with debridements, L eye blindness d/t diabetic retinopathy, ischemic cardiomyopathy, anasarca/lower leg edema. Last Myocardial Infarction Date:: 03/30/2018 History of Any Multi-Drug Resistant Organisms: None Reported Past Surgical History: Heart Catheterization With Stent Additional Past Surgical History / Comment(s): 05/17/20 R subclavian hemodialysis catheter, debridements L foot wound, R eye surgery-pt believes to remove cataract, SEAN fistula Additional Past Anesthesia/Blood Transfusion Reaction / Comment(s): During 3rd debridement L foot ulcer Date of Last Stent Placement:: 03/31/2018 Past Psychological History: No Psychological Hx Reported Smoking Status: Never smoker Past Alcohol Use History: None Reported Past Drug Use History: None Reported - Past Family History Mother Family Medical History: Diabetes Mellitus, Hyperlipidemia, Hypertension Father Family Medical History: Diabetes Mellitus, Hypertension Medications and Allergies Home Medications Medication Instructions Recorded Confirmed Type Nitroglycerin Sl Tabs [Nitrostat] 0.4 mg SL Q5M PRN 05/09/20 08/28/24 History NIFEdipine XL [Procardia XL] 90 mg PO DAILY 03/08/24 08/28/24 History Sacubitril/Valsartan [Entresto 24 1 tab PO BID 06/16/24 08/28/24 History mg-26 mg Tablet] hydrALAZINE HCL [Apresoline] 50 mg PO TID-W/MEALS 06/16/24 08/28/24 History Aspirin 81 mg PO DAILY #30 tab 06/17/24 08/28/24 Rx Pantoprazole Sodium [Protonix] 20 mg PO DAILY 08/28/24 08/28/24 History carvediloL [Coreg] 25 mg PO BID 08/28/24 08/28/24 History cloNIDine 0.3 MG/24HR PATCH 1 patch TRANSDERM SA 08/28/24 08/28/24 History [Catapres-TTS] Allergies Allergy/AdvReac Type Severity Reaction Status Date / Time nickel Allergy Rash/Hives Verified 06/16/24 08:15 Physical Examination - Vital Signs Vital Signs: Vital Signs Temp Pulse Pulse Resp BP BP Pulse Ox 08/30/24 18:00 66 202 H 125/75 100 08/30/24 17:52 97 F L 65 20 154/69 08/30/24 17:00 64 20 123/72 100 08/30/24 16:00 97.9 F 64 20 133/75 100 08/30/24 15:24 08/30/24 15:00 64 20 116/69 100 08/30/24 14:00 65 20 126/72 100 08/30/24 13:00 67 20 135/76 100 08/30/24 12:00 97.0 F L 66 20 121/69 100 08/30/24 11:08 08/30/24 11:00 65 20 126/73 100 08/30/24 10:00 66 20 115/70 100 08/30/24 09:00 65 20 124/69 100 08/30/24 08:00 97.6 F 64 20 128/72 100 08/30/24 07:57 08/30/24 07:00 67 20 127/75 100 08/30/24 06:00 66 20 126/73 100 08/30/24 05:33 08/30/24 05:00 66 20 119/70 100 08/30/24 04:00 67 20 114/68 100 08/30/24 03:00 69 20 112/66 100 08/30/24 02:00 99.0 F 73 21 116/68 100 08/30/24 01:00 75 22 118/68 100 08/30/24 00:42 08/30/24 00:00 100.4 F H 76 22 113/66 100 08/29/24 23:00 75 21 125/72 100 08/29/24 22:00 76 21 117/68 100 08/29/24 21:00 75 20 109/67 100 08/29/24 20:29 08/29/24 20:00 99.9 F H 77 20 108/64 100 08/29/24 19:00 76 20 115/70 100 FiO2 08/30/24 18:00 08/30/24 17:52 08/30/24 17:00 08/30/24 16:00 40 08/30/24 15:24 40 08/30/24 15:00 08/30/24 14:00 08/30/24 13:00 08/30/24 12:00 40 08/30/24 11:08 40 08/30/24 11:00 08/30/24 10:00 08/30/24 09:00 08/30/24 08:00 40 08/30/24 07:57 40 08/30/24 07:00 08/30/24 06:00 08/30/24 05:33 40 08/30/24 05:00 08/30/24 04:00 40 08/30/24 03:00 08/30/24 02:00 08/30/24 01:00 08/30/24 00:42 40 08/30/24 00:00 40 08/29/24 23:00 08/29/24 22:00 08/29/24 21:00 08/29/24 20:29 40 08/29/24 20:00 40 08/29/24 19:00 Intake and Output 08/30/24 08/30/24 08/30/24 06:59 14:59 22:59 Intake Total 209 280.035 641.958 Output Total 7 0 2500 Balance 202 280.035 -1858.042 Intake: IV 99 31 Piperacillin-Tazobactam 3 75 25 .375 gm In Sodium Chloride 0.9% 100 ml @ 25 mls/hr IVPB Q8H KATHERINE Rx#: [id number] Pressure Bag 24 6 Intake, IV Titration 109.035 141.958 Amount Piperacillin-Tazobactam 3 100 .375 gm In Sodium Chloride 0.9% 100 ml @ 25 mls/hr IVPB Q12H KATHERINE Rx# :[id number] propofoL 1,000 mg In 109.035 41.958 Empty Bag 1 bag @ 10 MCG/ KG/MIN 3.402 mls/hr IV . Q24H KATHERINE Rx#:[id number] Tube Feeding 80 50 0 Hemodialysis 500 Other 30 90 Output: Urine 7 0 0 Hemodialysis 1500 Hemodialysis Net Amount 1000 Other: Voiding Method Indwelling Catheter Indwelling Catheter Indwelling Catheter # Bowel Movements 1 1 Weight 79.8 kg ABP, PAP, CO, CI - Last 8 Hours Arterial Blood Pressure 152/66 Arterial Blood Pressure 139/64 Arterial Blood Pressure 142/65 Arterial Blood Pressure 124/62 Arterial Blood Pressure 149/69 Arterial Blood Pressure 145/66 Arterial Blood Pressure 131/63 Arterial Blood Pressure 155/71 Patient is a middle aged Afro[place]er male, who is intubated, sedated with propofol 40 mcg/kg/min. Patient has not been responding to vocal commands earlier, but when I called his name, patient did open his right eye twice slightly and then closed it. He did slightly squeeze my hands it appears. However it was not consistent. No obvious seizure-like activity noted. On cranial nerve examination, patient's right pupil is round, and not clearly reacting. The left cornea is cloudy with no vision. Oculocephalics are absent. Corneals absent. Patient does have a gag and cough reflex. Other cranial nerves cannot be assessed. On muscle strength testing, patient slightly squeeze the hands very minimally about 1+ bilaterally, but only once or twice and then stop doing it, uncertain if reflexive. Deep tendon reflexes diminished and plantars are flat. Sensory to touch cannot be assessed. Cerebellar function cannot be assessed. Tone and bulk of muscles normal. Gait deferred.. On general examination, there is no carotid bruit or murmur, S1-S2 audible. Chest is clear on consultation. Abdomen is soft nontender. No organomegaly, bowel sounds present. Mild peripheral edema. Results - Laboratory Findings CBC and BMP: 08/30/24 05:00 08/30/24 05:00 Abnormal Lab Findings: Abnormal Labs 08/28/24 08/28/24 08/28/24 10:14 10:14 10:14 WBC 31.6 H RBC 3.51 L Hgb 11.0 L Hct 35.4 L MCV 100.9 H RDW 18.3 H Plt Count 61 L Neutrophils # Neutrophils # (Manual) 27.40 H Lymphocytes # Monocytes # (Manual) 1.58 H Metamyelocytes # (Man) 0.95 H Myelocytes # (Manual) 0.63 H PT 18.5 H INR 1.8 H APTT 35.7 H D-Dimer 9.08 H ABG pH ABG pO2 ABG HCO3 ABG Total CO2 ABG O2 Saturation Hemoglobin Sodium 135 L Potassium 6.0 H Chloride Carbon Dioxide 20 L BUN 31 H Creatinine 7.48 H* Glucose 101 H POC Glucose (mg/dL) Plasma Lactic Acid Robb Calcium 8.2 L Total Bilirubin AST ALT Troponin I Total Protein Albumin Procalcitonin Hep Bs Antibody 08/28/24 08/28/24 08/28/24 10:14 10:14 11:18 WBC RBC Hgb Hct MCV RDW Plt Count Neutrophils # Neutrophils # (Manual) Lymphocytes # Monocytes # (Manual) Metamyelocytes # (Man) Myelocytes # (Manual) PT INR APTT D-Dimer ABG pH ABG pO2 >420 H ABG HCO3 ABG Total CO2 25 H ABG O2 Saturation 100.0 H Hemoglobin 9.6 L Sodium Potassium Chloride Carbon Dioxide BUN Creatinine Glucose POC Glucose (mg/dL) Plasma Lactic Acid Robb Calcium Total Bilirubin AST ALT Troponin I 0.072 H* Total Protein Albumin Procalcitonin Hep Bs Antibody A 08/28/24 08/28/24 08/28/24 13:00 14:20 14:22 WBC RBC Hgb Hct MCV RDW Plt Count Neutrophils # Neutrophils # (Manual) Lymphocytes # Monocytes # (Manual) Metamyelocytes # (Man) Myelocytes # (Manual) PT INR APTT D-Dimer ABG pH ABG pO2 ABG HCO3 ABG Total CO2 ABG O2 Saturation Hemoglobin Sodium Potassium Chloride Carbon Dioxide BUN Creatinine Glucose POC Glucose (mg/dL) 45 L* 143 H Plasma Lactic Acid Robb 8.0 H* Calcium Total Bilirubin AST ALT Troponin I Total Protein Albumin Procalcitonin Hep Bs Antibody 08/28/24 08/28/24 08/28/24 15:59 15:59 16:53 WBC RBC Hgb Hct MCV RDW Plt Count Neutrophils # Neutrophils # (Manual) Lymphocytes # Monocytes # (Manual) Metamyelocytes # (Man) Myelocytes # (Manual) PT INR APTT D-Dimer ABG pH 7.34 L ABG pO2 226 H ABG HCO3 19 L ABG Total CO2 ABG O2 Saturation 99.8 H Hemoglobin 11.3 L Sodium Potassium 6.9 H* Chloride Carbon Dioxide BUN Creatinine Glucose POC Glucose (mg/dL) Plasma Lactic Acid Robb 10.6 H* Calcium Total Bilirubin AST ALT Troponin I Total Protein Albumin Procalcitonin Hep Bs Antibody 08/28/24 08/28/24 08/28/24 19:04 22:41 22:41 WBC 31.5 H RBC 3.77 L Hgb 11.9 L Hct 37.6 L MCV RDW 18.4 H Plt Count 54 L Neutrophils # 29.0 H Neutrophils # (Manual) Lymphocytes # Monocytes # (Manual) Metamyelocytes # (Man) Myelocytes # (Manual) PT INR APTT D-Dimer ABG pH ABG pO2 ABG HCO3 ABG Total CO2 ABG O2 Saturation Hemoglobin Sodium 135 L Potassium Chloride Carbon Dioxide BUN 23 H Creatinine 4.46 H Glucose 72 L POC Glucose (mg/dL) Plasma Lactic Acid Robb 5.1 H* Calcium 7.9 L Total Bilirubin 1.5 H AST 376 H ALT 179 H Troponin I Total Protein Albumin 3.4 L Procalcitonin Hep Bs Antibody 08/28/24 08/29/24 08/29/24 22:41 04:30 04:30 WBC 30.1 H RBC 3.49 L Hgb 11.0 L Hct 34.4 L MCV RDW 18.2 H Plt Count 66 L Neutrophils # 28.0 H Neutrophils # (Manual) Lymphocytes # Monocytes # (Manual) Metamyelocytes # (Man) Myelocytes # (Manual) PT INR APTT D-Dimer ABG pH ABG pO2 ABG HCO3 ABG Total CO2 ABG O2 Saturation Hemoglobin Sodium Potassium Chloride 114 H Carbon Dioxide 19 L BUN 22 H Creatinine 3.57 H Glucose 67 L POC Glucose (mg/dL) Plasma Lactic Acid Robb 2.6 H* Calcium 5.4 L* Total Bilirubin AST 218 H ALT 140 H Troponin I Total Protein 4.4 L Albumin 2.0 L Procalcitonin Hep Bs Antibody 08/29/24 08/29/24 08/29/24 04:30 06:10 08:26 WBC RBC Hgb Hct MCV RDW Plt Count Neutrophils # Neutrophils # (Manual) Lymphocytes # Monocytes # (Manual) Metamyelocytes # (Man) Myelocytes # (Manual) PT INR APTT D-Dimer ABG pH ABG pO2 147 H ABG HCO3 31 H ABG Total CO2 32 H ABG O2 Saturation 99.4 H Hemoglobin 10.5 L Sodium Potassium Chloride Carbon Dioxide BUN Creatinine Glucose POC Glucose (mg/dL) Plasma Lactic Acid Robb Calcium Total Bilirubin AST ALT Troponin I 1.030 H* Total Protein Albumin Procalcitonin >100.00 H Hep Bs Antibody 08/29/24 08/29/24 08/30/24 18:15 21:32 05:00 WBC RBC Hgb Hct MCV RDW Plt Count Neutrophils # Neutrophils # (Manual) Lymphocytes # Monocytes # (Manual) Metamyelocytes # (Man) Myelocytes # (Manual) PT INR APTT D-Dimer ABG pH ABG pO2 ABG HCO3 ABG Total CO2 ABG O2 Saturation Hemoglobin Sodium 136 L Potassium Chloride Carbon Dioxide BUN 54 H Creatinine 7.23 H* Glucose 107 H POC Glucose (mg/dL) Plasma Lactic Acid Robb Calcium 7.7 L Total Bilirubin 1.5 H AST 140 H ALT 197 H Troponin I 0.643 H* 0.661 H* Total Protein 5.9 L Albumin 2.8 L Procalcitonin Hep Bs Antibody 08/30/24 08/30/24 05:00 05:36 WBC 23.8 H RBC 3.12 L Hgb 9.7 L Hct 30.6 L MCV RDW 18.5 H Plt Count 75 L Neutrophils # 22.0 H Neutrophils # (Manual) Lymphocytes # 0.7 L Monocytes # (Manual) Metamyelocytes # (Man) Myelocytes # (Manual) PT INR APTT D-Dimer ABG pH ABG pO2 188 H ABG HCO3 30 H ABG Total CO2 31 H ABG O2 Saturation 99.7 H Hemoglobin 9.8 L Sodium Potassium Chloride Carbon Dioxide BUN Creatinine Glucose POC Glucose (mg/dL) Plasma Lactic Acid Robb Calcium Total Bilirubin AST ALT Troponin I Total Protein Albumin Procalcitonin Hep Bs Antibody Assessment and Plan Assessment: * Acute PEA cardiopulmonary arrest x 3. Total downtime 16 minutes (3 minutes, 6 minutes and 7 minutes.) * Encephalopathy, likely combination of metabolic encephalopathy with perhaps some superimposed hypoxic/anoxic encephalopathy. * Acute hypoxic respiratory failure, secondary to above. * Hyperkalemia * Fever, leukocytosis, rule out sepsis. * Lactic acidosis, likely due to above * Acute hypotension postcardiac arrest. * Chronic anemia * Thrombocytopenia * End-stage renal disease on hemodialysis. * Diabetes * Hypertension * Coronary artery disease, history of ischemic cardiomyopathy * CHF * Diabetic peripheral neuropathy * Dyslipidemia * Blindness left eye Plan: * Patient showed some meaningful response, with slightly opening his right eye briefly to calling his name loudly. He did it twice. We will continue to monitor clinically. * Patient currently on propofol 40 mcg/kg/min. Suggest decreasing sedation to assess his mental status. * EEG in the morning rule out epileptiform activity, evaluate for the severity of encephalopathy * Patient currently on Zosyn and vancomycin. * If mentation does not improve, will consider repeating CT head in the morning. * Discussed with nursing staff in detail. * Treatment of other medical conditions as per IM and other specialties on board. * Neurology will follow. Thank you for the consult.
--- NOTE | 2024-08-30 20:09 | US ---
EXAMINATION TYPE: US abdomen limited DATE OF EXAM: 08/30/2024 COMPARISON: NONE CLINICAL INDICATION: Male, 44 years old with history of Fever elevated liver enzymes; ICU patient on vent. Patient on dialysis. TECHNIQUE: Grayscale and color Doppler imaging of the right upper quadrant was performed. FINDINGS: EXAM MEASUREMENTS: Liver Length: 23.2 cm Gallbladder Wall: 0.3 cm CBD: 0.5 cm Right Kidney: 10.5 x 4.3 x 4.8 cm [employer] NOTES:Exam done portable in ICU, patient on vent Pancreas: Visualized portions appear slightly echogenic. The pancreatic duct is seen and measures 2m m. Liver: Hepatomegaly Gallbladder: wnl Evidence for sonographic Cisneros's sign: no CBD: wnl Right Kidney: There is a 1.4 x 0.9 x 1.5cm anechoic area seen within the superior pole of the kidney . This too small to classify as simple. Monitoring is recommended There is a small amount of ascites seen. There is also fluid seen within the pleural cavity. IMPRESSION: 1. Hepatomegaly with mild fatty infiltration. 2. Small amount of free fluid within the abdomen. Small pleural effusion is present. There are 3. Sup erior pole right renal cyst. Monitoring recommended. [facility], , 08/30/2024 8:07 PM
[2024-08-31 00:03] LABS: Glucose,Whole Blood 81 mg/dL (70-110)
[2024-08-31 00:03] LABS: Glucose,Whole Blood 69 mg/dL (70-110)
[2024-08-31] MEDS: MORPHINE SULFATE 2 MG/ML SYRINGE IVP PRN (00:54)
[2024-08-31] MEDS: hydrALAZINE HCL 50 MG TAB PO STA (00:56)
[2024-08-31 05:00] LABS: Glucose,Whole Blood 78 mg/dL (70-110)
[2024-08-31 05:18] LABS: Anisocytosis Slight; HCT 30.9 % (39.0-53.0); HGB 9.9 gm/dL (13.0-17.5); MCH 31.2 pg (25.0-35.0); MCHC 32.1 g/dL (31.0-37.0); MCV 97.1 fL (80.0-100.0); Macrocytosis Slight; Mean Platelet Volume 12.7; RBC 3.19 m/uL (4.30-5.90); RDW 18.5 % (11.5-15.5); WBC 20.1 k/uL (3.8-10.6)
[2024-08-31 05:20] LABS: Platelet Count 75 k/uL (150-450)
[2024-08-31 05:25] LABS: African American GFR (CKD) 14 (>60 ml/min/1.73 sqM); Anion Gap 7 mmol/L; Blood Urea Nitrogen 46 mg/dL (9-20); Calcium 7.9 mg/dL (8.4-10.2); Carbon Dioxide 28 mmol/L (22-30); Chloride 100 mmol/L (98-107); Glucose 82 mg/dL (74-99); Non-African American GFR(CKD) 12 (>60 ml/min/1.73 sqM); Potassium 3.7 mmol/L (3.5-5.1); Sodium 135 mmol/L (137-145)
[2024-08-31 05:40] LABS: ABG Base Excess 5.6 mmol/L; ABG HCO3 30 mmol/L (21-25); ABG Oxygen Saturation 99.7 % (94-97); ABG PCO2 42 mmHg (35-45); ABG PH 7.47 (7.35-7.45); ABG PO2 181 mmHg (83-108); ABG TCO2 31 mmol/L (19-24)
[2024-08-31 06:00] LABS: Target Cells Present
[2024-08-31] MEDS: POTASSIUM BICARBONATE/CIT AC 20 MEQ TABLET.EFF PO ONE (06:34)
--- NOTE | 2024-08-31 07:00 | XR ---
EXAMINATION TYPE: XR chest 1V portable DATE OF EXAM: 08/31/2024 5:16 AM COMPARISON: One day prior. CLINICAL INDICATION: Male, 44 years old with history of Tube placement; [facility] TECHNIQUE: XR chest 1V portable Frontal view of the chest. FINDINGS: Lungs/Pleura: There is no evidence of pleural effusion, focal consolidation, or pneumothorax. Pulmonary vascularity: Unremarkable. Heart/mediastinum: Cardiomediastinal silhouette is enlarged. Musculoskeletal: No acute osseous pathology. Other findings: None Lines/Tubes: Endotracheal tube with distal tip 6.6 cm above the seth. Nasogastric tube with side-port projecting over the distal esophagus. IMPRESSION: Recommendations are the same as one day prior. Endotracheal tube in high position and advancement of 3 cm recommended for proper placement. Nasogastric tube in the esophagus and advancement of 12 cm recommended for optimal placement. Cardiomegaly. Scattered interstitial prominence. Correlate with serum BNP. [facility], , 08/31/2024 6:58 AM
--- NOTE | 2024-08-31 08:06 | P.PN ---
Subjective Progress Note Date: 08/31/24 PROGRESS NOTE The patient is a 44-year-old male with end-stage renal disease, history of hypertension who presented to the emergency room with change in mental status, in the emergency room he went apneic had a cardiac arrest with PEA rhythm. He underwent CPR on 3 occasions. He is intubated at this time, sedated, in sinus mechanism, on no vasopressors. He underwent dialysis yesterday. His potassium was elevated on presentation. He has a history of diabetes and hypertension. An echocardiogram in February showed an ejection fraction of 45 to 50% with moderate severe pulmonary hypertension and moderate tricuspid regurgitation. He has been followed by Dr. Martines on a regular basis. Apparently he did not have any missing dialysis sessions. Since admission he had no further cardiac arrest. He has no evidence of ventricular tachycardia or atrial fibrillation. Hemodynamically he has been stable. He is scheduled to undergo dialysis again today. August 31: The patient remains intubated, he is awake, alert, following command. His blood pressure is elevated. He has no arrhythmia. He has been given hydralazine for control of his blood pressure. There is no evidence of ventricular tachyar rhythmia. He underwent dialysis yesterday. Echocardiogram showed an ejection fraction of 35 to 40%, he had moderate pulmonary hypertension Medications: Catapres patch 0.1 mg, hydralazine 50 mg 3 times daily, carvedilol 3.125 mg twice a day, aspirin PHYSICAL EXAMINATION: Blood pressure 156/70 heart rate 60, intubated but following commands LUNGS: Clear to auscultation HEART: Regular rate and rhythm, S1, S2. No S3. Systolic ejection murmur ABDOMEN: Soft, nontender, no organomegaly EXTREMETIES: No edema LAB: WBC 20.1, hemoglobin 9.9, BUN 46, creatinine 5.49. Potassium 3.7. IMPRESSION: 1. Respiratory failure with change in mental status, resolved, improving. He remains intubated but appears to be stable 2. Hypertension 3. End-stage renal disease on hemodialysis 4. History of cardiomyopathy 5. Troponin elevation probably related to the renal failure and type II event PLAN: 1. Reinitiate Entresto 2. Follow blood pressure 3. Hopefully wean and extubate today 4. Depending on his progress further recommendations will be made Objective - Vital Signs Vital signs: Vital Signs Temp 98.6 F 08/31/24 04:00 Pulse 68 08/31/24 07:00 Resp 20 08/31/24 07:00 BP 129/70 08/31/24 07:00 Pulse Ox 100 08/31/24 07:00 FiO2 40 08/31/24 07:53 Intake & Output 08/30/24 08/31/24 08/31/24 18:59 06:59 18:59 Intake Total 921.993 371.746 10 Output Total 2500 0 0 Balance -1578.007 371.746 10 Weight 78 kg Intake: IV 31 100 Piperacillin-Tazobactam 3 25 100 .375 gm In Sodium Chloride 0.9% 100 ml @ 25 mls/hr IVPB Q8H KATHERINE Rx#: [id number] Pressure Bag 6 Intake, IV Titration 250.993 161.746 Amount Piperacillin-Tazobactam 3 100 .375 gm In Sodium Chloride 0.9% 100 ml @ 25 mls/hr IVPB Q12H KATHERINE Rx# :[id number] propofoL 1,000 mg In 150.993 161.746 Empty Bag 1 bag @ 10 MCG/ KG/MIN 3.402 mls/hr IV . Q24H KATHERINE Rx#:[id number] Tube Feeding 50 110 10 Hemodialysis 500 Other 90 Output: Urine 0 0 0 Hemodialysis 1500 Hemodialysis Net Amount 1000 Other: Voiding Method Indwelling Catheter Indwelling Catheter # Bowel Movements 1 ABP, PAP, CO, CI - Last Documented Arterial Blood Pressure 156/70 - Labs CBC & Chem 7: 08/31/24 04:00 08/31/24 04:00 Labs: Abnormal Lab Results - Last 24 Hours (Table) 08/30/24 08/31/24 08/31/24 Range/Units 23:58 04:00 04:00 WBC 20.1 H (3.8-10.6) k/uL RBC 3.19 L (4.30-5.90) m/uL Hgb 9.9 L (13.0-17.5) gm/dL Hct 30.9 L (39.0-53.0) % RDW 18.5 H (11.5-15.5) % Plt Count 75 L (150-450) k/uL ABG pH (7.35-7.45) ABG pO2 (83-108) mmHg ABG HCO3 (21-25) mmol/L ABG Total CO2 (19-24) mmol/L ABG O2 Saturation (94-97) % Hemoglobin (13.0-17.5) gm/dL Sodium 135 L (137-145) mmol/L BUN 46 H (9-20) mg/dL Creatinine 5.49 H (0.66-1.25) mg/dL POC Glucose (mg/dL) 69 L (70-110) mg/dL Calcium 7.9 L (8.4-10.2) mg/dL 08/31/24 Range/Units 05:36 WBC (3.8-10.6) k/uL RBC (4.30-5.90) m/uL Hgb (13.0-17.5) gm/dL Hct (39.0-53.0) % RDW (11.5-15.5) % Plt Count (150-450) k/uL ABG pH 7.47 H (7.35-7.45) ABG pO2 181 H (83-108) mmHg ABG HCO3 30 H (21-25) mmol/L ABG Total CO2 31 H (19-24) mmol/L ABG O2 Saturation 99.7 H (94-97) % Hemoglobin 10.0 L (13.0-17.5) gm/dL Sodium (137-145) mmol/L BUN (9-20) mg/dL Creatinine (0.66-1.25) mg/dL POC Glucose (mg/dL) (70-110) mg/dL Calcium (8.4-10.2) mg/dL Microbiology - Last 24 Hours (Table) 08/28/24 13:03 Blood Culture - Preliminary Blood 08/28/24 11:42 Gram Stain - Final Sputum Sputum Culture - Final
[2024-08-31] MEDS: hydrALAZINE HCL 50 MG TAB PO SCH (09:02)
[2024-08-31] MEDS: SACUBITRIL/VALSARTAN 24 MG-26 MG TABLET PO SCH (09:02)
[2024-08-31] MEDS: carvediloL 3.125 MG TAB PO ONE (11:13)
--- NOTE | 2024-08-31 11:17 | P.PN ---
Subjective patient is seen for follow-up for end-stage renal disease. status post hemodialysis yesterday. Patient was extubated this morning. Blood pressure is on the higher side. Objective - Vital Signs Vital signs: Vital Signs Temp 99.0 F 08/31/24 08:00 Pulse 75 08/31/24 11:00 Resp 21 08/31/24 11:00 BP 152/79 08/31/24 11:00 Pulse Ox 100 08/31/24 11:00 FiO2 40 08/31/24 09:52 Intake & Output 08/30/24 08/31/24 08/31/24 18:59 06:59 18:59 Intake Total 921.993 371.746 104.927 Output Total 2500 0 0 Balance -1578.007 371.746 104.927 Weight 78 kg Intake: IV 31 100 Piperacillin-Tazobactam 3 25 100 .375 gm In Sodium Chloride 0.9% 100 ml @ 25 mls/hr IVPB Q8H KATH[facility]INE Rx#: [id number] Pressure Bag 6 Intake, IV Titration 250.993 161.746 34.927 Amount Piperacillin-Tazobactam 3 100 .375 gm In Sodium Chloride 0.9% 100 ml @ 25 mls/hr IVPB Q12H KATH[facility]INE Rx# :[id number] propofoL 1,000 mg In 150.993 161.746 34.927 Empty Bag 1 bag @ 10 MCG/ KG/MIN 3.402 mls/hr IV . Q24H KATHERINE Rx#:[id number] Tube Feeding 50 110 30 Hemodialysis 500 Other 90 40 Output: Urine 0 0 0 Hemodialysis 1500 Hemodialysis Net Amount 1000 Other: Voiding Method Indwelling Catheter Indwelling Catheter Indwelling Catheter # Bowel Movements 1 ABP, PAP, CO, CI - Last Documented Arterial Blood Pressure 190/76 - Exam patient is awake and alert oriented 3. Examination of the heart S1 and S2 Examination lungs bilateral breath sounds are heard Abdomen is soft nontender Examination of lower extremity shows no significant edema - Labs CBC & Chem 7: 08/31/24 04:00 08/31/24 04:00 Labs: Abnormal Lab Results - Last 24 Hours (Table) 08/30/24 08/31/24 08/31/24 Range/Units 23:58 04:00 04:00 WBC 20.1 H (3.8-10.6) k/uL RBC 3.19 L (4.30-5.90) m/uL Hgb 9.9 L (13.0-17.5) gm/dL Hct 30.9 L (39.0-53.0) % RDW 18.5 H (11.5-15.5) % Plt Count 75 L (150-450) k/uL ABG pH (7.35-7.45) ABG pO2 (83-108) mmHg ABG HCO3 (21-25) mmol/L ABG Total CO2 (19-24) mmol/L ABG O2 Saturation (94-97) % Hemoglobin (13.0-17.5) gm/dL Sodium 135 L (137-145) mmol/L BUN 46 H (9-20) mg/dL Creatinine 5.49 H (0.66-1.25) mg/dL POC Glucose (mg/dL) 69 L (70-110) mg/dL Calcium 7.9 L (8.4-10.2) mg/dL 08/31/24 Range/Units 05:36 WBC (3.8-10.6) k/uL RBC (4.30-5.90) m/uL Hgb (13.0-17.5) gm/dL Hct (39.0-53.0) % RDW (11.5-15.5) % Plt Count (150-450) k/uL ABG pH 7.47 H (7.35-7.45) ABG pO2 181 H (83-108) mmHg ABG HCO3 30 H (21-25) mmol/L ABG Total CO2 31 H (19-24) mmol/L ABG O2 Saturation 99.7 H (94-97) % Hemoglobin 10.0 L (13.0-17.5) gm/dL Sodium (137-145) mmol/L BUN (9-20) mg/dL Creatinine (0.66-1.25) mg/dL POC Glucose (mg/dL) (70-110) mg/dL Calcium (8.4-10.2) mg/dL Microbiology - Last 24 Hours (Table) 08/28/24 13:03 Blood Culture - Preliminary Blood 08/28/24 11:42 Gram Stain - Final Sputum Sputum Culture - Final Assessment and Plan Assessment: 1. End-stage renal disease maintained on hemodialysis on Friday schedule. 2. Status post cardiac arrest x 3 August 28, 2024. No PE noted on CTA. 3. Hyperkalemia secondary to chronic kidney disease, post CPR improved postdialysis. 4. Hypocalcemia secondary to chronic kidney disease. status post replacement 5. Hypertension with chronic kidney disease. 6. Chronic systolic CHF ejection fraction of 45 to 50% with moderate tricuspid regurgitation. 7. Chronic kidney disease mineral bone disease. 8. Leukocytosis. Questionable infectious versus reactive. On antibiotics. Plan: continue hemodialysis on Friday schedule Increase Coreg if blood pressure remains elevated.
--- NOTE | 2024-08-31 12:03 | P.PN ---
Subjective Progress Note Date: 08/31/24 Principal diagnosis: Cardiac arrest/PEA x 3 This is a 44-year-old male patient with incisional disease on hemodialysis. The patient came in to the emergency department this morning with altered mentation. Upon arrival, the patient went apneic and he went into a pulseless PEA rhythm. As such, he was started on resuscitation based on the ACLS protocol and the patient was given CPR and he was intubated. Noted he underwent a 2 additional episodes of cardiac arrest. Noted initial code was 42 minutes, subsequent codes for for 6 minutes and 7 minutes. During the second code, he received a total of 2 doses of epinephrine and a third code he was given 3 doses of epinephrine. He was also given calcium gluconate and bicarb. At the time of my arrival, there was return of spontaneous circulation and the patient was already on pressors and he was on norepinephrine running at 0.06 mcg/kg/min and he had received a total of 2 L of IV fluid bolus. He was in the mechanical ventilator assist- control mode with rate of 20, tidal volume of 350, FiO2 of 100% with a PEEP of 5. He is post intubation chest x-ray was reviewed and it showed cardiomegaly and volume overload. ET tube was adjusted. NG tube was in place. There was marked cardiomegaly. Subsequently, the patient was given a CT angiogram of the chest that showed no evidence of any pulmonary embolism. There was some small bibasilar infiltrates/effusions and marked cardiomegaly. CAT scan of the brain was also done that showed no acute intracranial bleed and the patient had scarring of his vitreous in his left globe. EKG was consistent with normal sinus rhythm. No ST segment elevations or depressions. The patient's white cell count was at 31.6. Hemoglobin was 11 and a platelet count was 61. INR was at 1.8 and a D-dimer was 9.0 with a PTT of 35. Postintubation blood gas showed a pH of 7.39 with a pCO2 of 48 pO2 of more than 420. BUN was 31 with a creatinine of 7.4 and a sodium level was at 135 and a potassium level was 6 with a chloride of 98 and a bicarb level of 20. Initial lactic acid level was at 8.0. proBNP level was more than 100,000 and the troponin was at 0.07. LFTs were essentially within normal limits. The patient was also started on low-dose propofol running at 10 mcg/kg/min. No additional information is available. According to the , the patient was confused yesterday after dialysis. No significant ultrafiltration was done. No reported fever. No falls. No head trauma. He has a functional AV fistula in the right upper extremity. The patient was in the hospital back in May 2024 and at that time, he was treated for shortness of breath and nausea and he continues to undergo hemodialysis with good results Comorbidities include end-stage renal disease on hemodialysis, diabetes mellitus type 2, diabetic neuropathy, coronary artery disease with prior PCI, ischemic cardiomyopathy with ejection fraction of 45 to 50% and the echocardiogram that was done on 03/08/2024 showed an EF of around 45 to 50% with global hypokinesis and severe thickness of the LV wall with small pericardial effusion.. She also has anemia of chronic disease and hyperlipidemia. On 08/29/2024, the patient is being seen for a follow-up. The patient is postcardiac arrest and the patient is currently in the intensive care and intubated on the mechanical ventilator. Noted his potassium level was also elevated and the patient was dialyzed yesterday. On today's evaluation, the patient is on propofol for sedation. Calm and comfortable. Synchronous with mechanical ventilator with a rate of 20, tidal volume of 350, FiO2 40% with a PEEP of 5. Blood gas showed a pH of 7.45 with a pCO2 of 47 and pO2 of 147. The patient was taken off norepinephrine at around midnight. He is also off vasopressin. IV fluids are currently at KVO. No urine output. Lactic acid level is dropped down to 1.3. Hemodialysis was done yesterday with a total of 1 L of ultrafiltration. Meanwhile, his white cell count remains elevated at 30 and the patient remains on a combination of Zosyn and vancomycin pending further cultures. BUN is 22 with a creatinine of 3.57. Potassium levels is down to 3.5. Bicarb is at 19. Sodium is at 138. The hemoglobin is stable at 11. Chest x-ray findings from today are essentially stable without any significant abnormalities. ET tube needs to be pushed in by around 2 cm. There is improved aeration in the right lung base along with ongoing cardiomegaly. No seizure activity. Patient was seen today on 08/30/2024, patient remains in the ICU, intubated and mechanically ventilated, he is on assist-control rate of 20 tidal volume 350 FiO2 40% and PEEP of 5 ABG showed a pO2 of 188 pCO2 45 pH of 7.43, patient is on propofol at 30 mcg/kg/min, patient is receiving hemodialysis during my evaluation. Patient is not requiring any pressors at this point, he is tolerating hemodialysis quite well. Looking back at the history of this patient, apparently he coded x 3. Mentation is still poor, the patient may have sustained anoxic brain injury however I plan to assess neurologically after being off sedation/propofol for a few hours. Not quite ready for any weaning trials at this point yet. Chest x-ray showed no evidence of pneumonia, no evidence of pulmonary edema, however his endotracheal tube seems to be sitting high, it will be advanced as [id number] considering the tube is only size 6, I will change the tube today.Patient continues to have leukocytosis with WBC of 23.8 hemoglobin is 9.7, electrolytes are normal BUN is 54 creatinine 7.23 procalcitonin level on admission is over 100. Patient remains empirically on Zosyn as per infectious disease on the case. Vancomycin has been discontinued. Evaluated today on 08/31/2024, remains in the ICU, intubated and mechanically ventilated. Patient is on assist-control rate of 20 tidal volume 350 FiO2 40% and PEEP of 5 ABG showed a pO2 of 181 pCO2 42 pH of 7.47. Remains on propofol at 40 mcg/kg/min remains on Nepro at 10 mL/h/enteral feeding, patient is arousable today, follows simple instructions even on propofol. WBC count is 20.1 hemoglobin is 9.9 basic metabolic profile is normal BUN is 46 creatinine 5.49 chest x-ray showed scattered interstitial prominence possible some component of pulmonary edema. Blood cultures and sputum cultures have been noted to be negative patient was seen by cardiology and he was placed back on Entresto for his cardiomyopathy and LV dysfunction Objective - Vital Signs Vital signs: Vital Signs Temp 99.0 F 08/31/24 08:00 Pulse 75 08/31/24 11:00 Resp 21 08/31/24 11:00 BP 152/79 08/31/24 11:00 Pulse Ox 100 08/31/24 11:00 FiO2 40 08/31/24 09:52 Intake & Output 08/30/24 08/31/24 08/31/24 18:59 06:59 18:59 Intake Total 921.993 371.746 104.927 Output Total 2500 0 0 Balance -1578.007 371.746 104.927 Weight 78 kg Intake: IV 31 100 Piperacillin-Tazobactam 3 25 100 .375 gm In Sodium Chloride 0.9% 100 ml @ 25 mls/hr IVPB Q8H [facility] Rx#: [id number] Pressure Bag 6 Intake, IV Titration 250.993 161.746 34.927 Amount Piperacillin-Tazobactam 3 100 .375 gm In Sodium Chloride 0.9% 100 ml @ 25 mls/hr IVPB Q12H [facility] Rx# :[id number] propofoL 1,000 mg In 150.993 161.746 34.927 Empty Bag 1 bag @ 10 MCG/ KG/MIN 3.402 mls/hr IV . Q24H KATH[facility]INE Rx#:[id number] Tube Feeding 50 110 30 Hemodialysis 500 Other 90 40 Output: Urine 0 0 0 Hemodialysis 1500 Hemodialysis Net Amount 1000 Other: Voiding Method Indwelling Catheter Indwelling Catheter Indwelling Catheter # Bowel Movements 1 ABP, PAP, CO, CI - Last Documented Arterial Blood Pressure 190/76 - Exam General: Revealed 44-year-old -[place] Citizen male intubated mechanically ventilated. Arousable, follows simple instructions Head: Atraumatic, normocephalic Neck supple no neck masses no JVD no stridor Lungs diminished breath sound bilaterally no crackles rhonchi or wheezes Cardiac distant S1-S2, no S3 gallop, no murmur. Abdominal exam: Soft nontender no megaly no rebound no guarding Extremities: No clubbing edema or cyanosis Skin: No rashes Neurologic: Arousable while on propofol, follows simple instructions Psychiatric: Seems to have relatively normal mental status flat affect is noted - - Labs CBC & Chem 7: 08/31/24 04:00 08/31/24 04:00 Labs: Abnormal Lab Results - Last 24 Hours (Table) 08/30/24 08/31/24 08/31/24 Range/Units 23:58 04:00 04:00 WBC 20.1 H (3.8-10.6) k/uL RBC 3.19 L (4.30-5.90) m/uL Hgb 9.9 L (13.0-17.5) gm/dL Hct 30.9 L (39.0-53.0) % RDW 18.5 H (11.5-15.5) % Plt Count 75 L (150-450) k/uL ABG pH (7.35-7.45) ABG pO2 (83-108) mmHg ABG HCO3 (21-25) mmol/L ABG Total CO2 (19-24) mmol/L ABG O2 Saturation (94-97) % Hemoglobin (13.0-17.5) gm/dL Sodium 135 L (137-145) mmol/L BUN 46 H (9-20) mg/dL Creatinine 5.49 H (0.66-1.25) mg/dL POC Glucose (mg/dL) 69 L (70-110) mg/dL Calcium 7.9 L (8.4-10.2) mg/dL 08/31/24 Range/Units 05:36 WBC (3.8-10.6) k/uL RBC (4.30-5.90) m/uL Hgb (13.0-17.5) gm/dL Hct (39.0-53.0) % RDW (11.5-15.5) % Plt Count (150-450) k/uL ABG pH 7.47 H (7.35-7.45) ABG pO2 181 H (83-108) mmHg ABG HCO3 30 H (21-25) mmol/L ABG Total CO2 31 H (19-24) mmol/L ABG O2 Saturation 99.7 H (94-97) % Hemoglobin 10.0 L (13.0-17.5) gm/dL Sodium (137-145) mmol/L BUN (9-20) mg/dL Creatinine (0.66-1.25) mg/dL POC Glucose (mg/dL) (70-110) mg/dL Calcium (8.4-10.2) mg/dL Microbiology - Last 24 Hours (Table) 08/28/24 13:03 Blood Culture - Preliminary Blood 08/28/24 11:42 Gram Stain - Final Sputum Sputum Culture - Final Assessment and Plan Assessment: Impression Acute cardiopulmonary arrest and the patient had PEA cardiac arrest x 3 Possible anoxic brain injury Acute hypoxic respiratory failure, secondary to above Hyperkalemia with a potassium level of 6.8, improved post hemodialysis potassium level is normalized Acute hypotension, postcardiac arrest. Required pressors, could be cardiogenic or hypovolemic in nature, or could be related to both Acute leukocytosis, rule out reactive, rule out sepsis/infection Acute leukocytosis postcardiac arrest, currently on Zosyn procalcitonin level extremely elevated End stage renal disease maintained on MWF hemodialysis schedule undergoing hemodialysis today. Benign essential hypertension Underlying coronary artery disease and previous PCI History of ischemic cardiomyopathy and LV dysfunction with ejection fraction of 45 to 50% History of chronic diastolic congestive heart failure Type 2 diabetes Chronic anemia GERD without esophagitis History of diabetic peripheral neuropathy Dyslipidemia Recommendation: Continue ventilatory support, however the patient will be given a weaning trial today and if tolerated may proceed to extubation. Continue hemodynamic monitoring and address accordingly Continue hemodialysis Continue nutritional support Continue antibiotics Continue hemodialysis as felt necessary by nephrology on the case Continue GI and DVT prophylaxis patient is on subcu heparin Continue to monitor electrolytes and sugar and address accordingly Pressure support and CPAP trial will be given Patient is critically ill Critical care time is over 30 minutes Time with Patient: Greater than 30
[2024-08-31] MEDS: carvediloL 6.25 MG TAB PO ONE (12:32)
[2024-08-31 12:37] LABS: Glucose,Whole Blood 71 mg/dL (70-110)
--- NOTE | 2024-08-31 12:48 | P.PN ---
Subjective Progress Note Date: 08/31/24 Principal diagnosis: Reason for follow-up is sepsis/pneumonia Patient is a 44-year-old -[place] male with a past medical history significant for hypertension hyperlipidemia [place] coronary artery disease end-stage renal disease on hemodialysis through the right upper extremity AV fistula patient has been brought into the hospital for evaluation of mental status changes did have episode of vomiting at home on arrival to the ER the patient stopped breathing and did have a cardiopulmonary resuscitation was intubated. On today's evaluation that is 08/31/2024,the patient remains to be afebrile, patient has been extubated and is breathing comfortably on 5 L nasal cannula o xygen no chest pain occasional cough no nausea vomiting abdominal pain or diarrhea. Patient white count is down to 20.1, creatinine is 5.49 ultrasound of the abdomen did not show any abnormality to the gallbladder mild hepatomegaly chest x-ray culture has been pending so far Objective - Vital Signs Vital signs: Vital Signs Temp 99.0 F 08/31/24 08:00 Pulse 75 08/31/24 11:00 Resp 21 08/31/24 11:00 BP 152/79 08/31/24 11:00 Pulse Ox 100 08/31/24 11:00 FiO2 40 08/31/24 09:52 Intake & Output 08/30/24 08/31/24 08/31/24 18:59 06:59 18:59 Intake Total 921.993 371.746 104.927 Output Total 2500 0 0 Balance -1578.007 371.746 104.927 Weight 78 kg Intake: IV 31 100 Piperacillin-Tazobactam 3 25 100 .375 gm In Sodium Chloride 0.9% 100 ml @ 25 mls/hr IVPB Q8H [facility]INE Rx#: [id number] Pressure Bag 6 Intake, IV Titration 250.993 161.746 34.927 Amount Piperacillin-Tazobactam 3 100 .375 gm In Sodium Chloride 0.9% 100 ml @ 25 mls/hr IVPB Q12H [facility]INE Rx# :[id number] propofoL 1,000 mg In 150.993 161.746 34.927 Empty Bag 1 bag @ 10 MCG/ KG/MIN 3.402 mls/hr IV . Q24H [facility] Rx#:[id number] Tube Feeding 50 110 30 Hemodialysis 500 Other 90 40 Output: Urine 0 0 0 Hemodialysis 1500 Hemodialysis Net Amount 1000 Other: Voiding Method Indwelling Catheter Indwelling Catheter Indwelling Catheter # Bowel Movements 1 ABP, PAP, CO, CI - Last Documented Arterial Blood Pressure 190/76 - Exam GENERAL DESCRIPTION: Middle-age male intubated on the vent RESPIRATORY SYSTEM: Unlabored breathing , decreased breath sounds at bases HEART: S1 S2 regular rate and rhythm , ABDOMEN: Soft , no tenderness EXTREMITIES: No edema feet - Labs CBC & Chem 7: 08/31/24 04:00 08/31/24 04:00 Labs: Abnormal Lab Results - Last 24 Hours (Table) 08/30/24 08/31/24 08/31/24 Range/Units 23:58 04:00 04:00 WBC 20.1 H (3.8-10.6) k/uL RBC 3.19 L (4.30-5.90) m/uL Hgb 9.9 L (13.0-17.5) gm/dL Hct 30.9 L (39.0-53.0) % RDW 18.5 H (11.5-15.5) % Plt Count 75 L (150-450) k/uL ABG pH (7.35-7.45) ABG pO2 (83-108) mmHg ABG HCO3 (21-25) mmol/L ABG Total CO2 (19-24) mmol/L ABG O2 Saturation (94-97) % Hemoglobin (13.0-17.5) gm/dL Sodium 135 L (137-145) mmol/L BUN 46 H (9-20) mg/dL Creatinine 5.49 H (0.66-1.25) mg/dL POC Glucose (mg/dL) 69 L (70-110) mg/dL Calcium 7.9 L (8.4-10.2) mg/dL 08/31/24 Range/Units 05:36 WBC (3.8-10.6) k/uL RBC (4.30-5.90) m/uL Hgb (13.0-17.5) gm/dL Hct (39.0-53.0) % RDW (11.5-15.5) % Plt Count (150-450) k/uL ABG pH 7.47 H (7.35-7.45) ABG pO2 181 H (83-108) mmHg ABG HCO3 30 H (21-25) mmol/L ABG Total CO2 31 H (19-24) mmol/L ABG O2 Saturation 99.7 H (94-97) % Hemoglobin 10.0 L (13.0-17.5) gm/dL Sodium (137-145) mmol/L BUN (9-20) mg/dL Creatinine (0.66-1.25) mg/dL POC Glucose (mg/dL) (70-110) mg/dL Calcium (8.4-10.2) mg/dL Microbiology - Last 24 Hours (Table) 08/28/24 13:03 Blood Culture - Preliminary Blood 08/28/24 11:42 Gram Stain - Final Sputum Sputum Culture - Final Assessment and Plan (1) Pneumonia Current Visit: Yes Status: Acute Code(s): J18.9 - PNEUMONIA, UNSPECIFIED ORGANISM SNOMED Code(s): 561952949 (2) Sepsis Current Visit: Yes Status: Acute Code(s): A41.9 - SEPSIS, UNSPECIFIED ORGANISM SNOMED Code(s): 65464450 Plan: 1patient presenting to the hospital with decreased level of responsiveness subsequently the patient did have a cardiac arrest requiring resuscitation did have significant elevated white count hypotension elevated lactic acid meeting currently for SIRS/sepsis with concern for possible aspiration pneumonitis to be the likely etiology 2-patient did have procalcitonin more than 100 sputum culture have been negative and resistant pathogen and blood culture currently pending 3patient did have ultrasound of the liver gallbladder area no abnormality of the gallbladder mild hepatomegaly 4white count is slowly trending down continue with the Zosyn Dictation was produced using [employer] dictation software. please excuse any grammatical, word or spelling errors. Time with Patient: Less than 30
--- NOTE | 2024-08-31 14:50 | P.PN ---
Subjective Progress Note Date: 08/31/24 Interval History: patient is a 44-year-old gentleman past medical history significant for end- stage renal disease on dialysis who presented to the ER for altered mental status. History was limited as patient was altered. According to patient was acting confused yesterday after dialysis. There was no complaint of fever or chills. Later in the night noticed the patient was having difficulty in breathing. This morning patient was found to be very confused so was brought to the ER. By the time patient came to the ER patient stopped breathing with loss of pulse,, CPR was initiated, ROSC was achieved but pulse was again lost with further 2 rounds of CPR, patient received epi, sodium bicarb and in the process. Patient was intubated in the process. Initial lab work done in the ER showed WBC 31.6, hemoglobin 11, platelet count 61, D-dimer 9.08, sodium 135, potassium 5, BUN 31, creatinine 7.48, calcium 8.2 troponin 0.072 EKG done in the ER showed heart rate of66 , no ST segment elevation or depression seen, no T-wave inversions seen. Chest x-ray done in the ER showed marked cardiomegaly, acute cardiopulmonary disease involving the right lung CT head done showed no acute intracranial process CTA chest done showed no evidence of pulmonary embolism, small bibasilar infiltrates and effusions seen Patient admitted to internal medicine service in ICU 08/29. Patient seen and examined. Blood work done showed WBC 30.1, hemoglobin 11, platelet count 66, sodium 130, potassium 3.5, BUN 22, creatinine 3.57, calcium 5.4 AST 218, ALT 140 patient is currently off all the pressors. Patient sedation was weaned off and patient was opening his eyes and trying to get up. 08/30/2024 Patient remains in the ICU, intubated and on mechanical ventilation, ICU following, remains on propofol, was receiving hemodialysis today during evaluation. Not on vasopressors. Concern for anoxic brain injury, neurology evaluation after sedation break. Chest x-ray negative for acute process. Labs showed WBCs 23.8, hemoglobin 9.7, BUN 54, creatinine 7.23. Procalcitonin on admission was over 100. Patient on Zosyn per infectious disease, vancomycin has been discontinued. ICU, nephrology, infectious disease and cardiology following. They recommended ultrasound liver and gallbladder. Cardiology recommended to resume beta-jamarcus and clonidine to prevent blood pressure rebound. 08/31/2024 Patient was extubated this morning, alert and oriented x 3. at bedside. Blood pressure on the higher side. Chest x-ray showed some component of pulmonary edema. Blood culture and sputum culture remain negative. Cardiology started Entresto. Ultrasound liver showed hepatomegaly with mild fatty infiltration, small amount of free fluid within the abdomen, small pleural effusion, right renal cyst. Echocardiogram showed moderate pulmonary hypertension, moderately dilated RV, no pericardial effusion. Assessment and plan: Septic shock--unknown source Cardiac arrest with pulseless electrical activity Acute metabolic encephalopathy Acute hypoxemic respiratory failure requiring mechanical ventilation Hyponatremia Hyperkalemia Acute transaminitis Thrombocytopenia End-stage renal disease on dialysis Lactic acidosis Hypertension Coronary artery disease with prior PCI. Ischemic cardiomyopathy EF 45-50% Chronic diastolic heart failure Diabetes mellitus type 2 Anemia of chronic disease Gastroesophageal reflux disease Diabetic peripheral neuropathy Dyslipidemia Plan: Continue telemetry monitoring Continue vent management--- extubated 08/31/2024 Aggressive bronchopulmonary hygiene Monitor troponins. Was on tube feeding, start p.o. intake. ICU following Nephrology following ID consultedcontinandrew Gilmore, ADDIS vancomycin, ultrasound of the gallbladder. Consulted cardiology following -consulted cardiology---aspirin, Coreg, clonidine, hydralazine, Entresto. -- Echocardiogram--moderate pulmonary hypertension, moderately dilated RV-, no pericardial effusion. --ultrasound liver and gallbladder---hepatomegaly with mild fatty infiltration, small amount of free fluid within the abdomen, small pleural effusion, right renal cyst. -- Neurology consult for evaluation of anoxic brain injury--ordered EEG. DVT prophylaxis: Subtenons heparin Monitor vital signs and labs Labs and medication were reviewed. Continue same treatment. Further recommendations as per clinical course of the patient PHYSICAL EXAMINATION: GENERAL: The patient is A&O x3, NAD HEENT: EOMI, Sclerae anicteric, Moist Mucous membranes Neck: Supple, Non tender, No JVD PULMONARY: Equal breath souds B/L, No wheezing, No crackles. CARDIOVASCULAR: S1, S2 present. No murmurs, rubs, or gallops. ABDOMEN: Soft, nontender, nondistended, normoactive bowel sounds. No guarding or rebound tenderness. MUSCULOSKELETAL: No edema, No cyanosis. No clubbing. Normal ROM. Intact peripheral pulses. NEUROLOGICAL: CN 2-12 grossly intact. No FND Skin: No Rash REVIEW OF SYSTEMS: CONSTITUTIONAL: No fever or chills. Complains of fatigue. CARDIOVASCULAR: No chest pain, palpitations or syncope. PULMONARY: No shortness of breath, no cough, sore throat. GASTROINTESTINAL: No nausea, vomiting, diarrhea, abdominal pain. : No Dysuria, urgency, frequency. Extremities: No edema. NEUROLOGICAL: No headaches, no weakness, or numbness Dictation was produced using [employer] dictation software. please excuse any grammatical, word or spelling errors. Objective - Vital Signs Vital signs: Vital Signs Temp 99.1 F 08/31/24 12:00 Pulse 78 08/31/24 14:00 Resp 16 08/31/24 14:00 BP 165/85 08/31/24 14:00 Pulse Ox 100 08/31/24 14:00 FiO2 40 08/31/24 09:52 Intake & Output 08/30/24 08/31/24 08/31/24 18:59 06:59 18:59 Intake Total 921.993 371.746 104.927 Output Total 2500 0 0 Balance -1578.007 371.746 104.927 Weight 78 kg Intake: IV 31 100 Piperacillin-Tazobactam 3 25 100 .375 gm In Sodium Chloride 0.9% 100 ml @ 25 mls/hr IVPB Q8H KATHERINE Rx#: [id number] Pressure Bag 6 Intake, IV Titration 250.993 161.746 34.927 Amount Piperacillin-Tazobactam 3 100 .375 gm In Sodium Chloride 0.9% 100 ml @ 25 mls/hr IVPB Q12H KATHERINE Rx# :[id number] propofoL 1,000 mg In 150.993 161.746 34.927 Empty Bag 1 bag @ 10 MCG/ KG/MIN 3.402 mls/hr IV . Q24H KATHERINE Rx#:[id number] Tube Feeding 50 110 30 Hemodialysis 500 Other 90 40 Output: Urine 0 0 0 Hemodialysis 1500 Hemodialysis Net Amount 1000 Other: Voiding Method Indwelling Catheter Indwelling Catheter Indwelling Catheter # Bowel Movements 1 1 ABP, PAP, CO, CI - Last Documented Arterial Blood Pressure 182/73 - Labs CBC & Chem 7: 08/31/24 04:00 08/31/24 04:00 Labs: Abnormal Lab Results - Last 24 Hours (Table) 08/30/24 08/31/24 08/31/24 Range/Units 23:58 04:00 04:00 WBC 20.1 H (3.8-10.6) k/uL RBC 3.19 L (4.30-5.90) m/uL Hgb 9.9 L (13.0-17.5) gm/dL Hct 30.9 L (39.0-53.0) % RDW 18.5 H (11.5-15.5) % Plt Count 75 L (150-450) k/uL ABG pH (7.35-7.45) ABG pO2 (83-108) mmHg ABG HCO3 (21-25) mmol/L ABG Total CO2 (19-24) mmol/L ABG O2 Saturation (94-97) % Hemoglobin (13.0-17.5) gm/dL Sodium 135 L (137-145) mmol/L BUN 46 H (9-20) mg/dL Creatinine 5.49 H (0.66-1.25) mg/dL POC Glucose (mg/dL) 69 L (70-110) mg/dL Calcium 7.9 L (8.4-10.2) mg/dL 08/31/24 Range/Units 05:36 WBC (3.8-10.6) k/uL RBC (4.30-5.90) m/uL Hgb (13.0-17.5) gm/dL Hct (39.0-53.0) % RDW (11.5-15.5) % Plt Count (150-450) k/uL ABG pH 7.47 H (7.35-7.45) ABG pO2 181 H (83-108) mmHg ABG HCO3 30 H (21-25) mmol/L ABG Total CO2 31 H (19-24) mmol/L ABG O2 Saturation 99.7 H (94-97) % Hemoglobin 10.0 L (13.0-17.5) gm/dL Sodium (137-145) mmol/L BUN (9-20) mg/dL Creatinine (0.66-1.25) mg/dL POC Glucose (mg/dL) (70-110) mg/dL Calcium (8.4-10.2) mg/dL Microbiology - Last 24 Hours (Table) 08/28/24 13:03 Blood Culture - Preliminary Blood
[2024-08-31] MEDS: hydrALAZINE HCL 25 MG TAB PO SCH (15:20)
[2024-08-31 17:00] LABS: Glucose,Whole Blood 72 mg/dL (70-110)
[2024-08-31] MEDS ORDERED: carvediloL 6.25 MG TAB PO SCH (17:30)
[2024-08-31] MEDS ORDERED: ZINC OXIDE PASTE (Z-GUARD) 1 APPLIC TOPICAL PRN (17:43)
[2024-08-31] MEDS: carvediloL 12.5 MG TAB PO SCH (20:34)
[2024-08-31 20:44] LABS: Glucose,Whole Blood 111 mg/dL (70-110)
--- NOTE | 2024-09-01 01:11 | EEG ---
DATE OF SERVICE: 08/31/2024 ELECTROENCEPHALOGRAM REPORT PREAMBLE: This is a 44-year-old male with cardiac arrest. The patient has history of ESRD on hemodialysis. EEG FINDINGS: This is a 21-channel digital EEG recorded with video component, utilizing 10/20 international system with referential and bipolar montages. The background consists of predominantly moderate amplitude 2-3 hertz generalized delta slowing, intermixed with some relatively preserved, well-formed posterior dominant 8 hertz alpha activity seen in bihemispheric region. Background does not seem to be reactive to eye opening or closing. Photic driving response was not seen. Different stages of sleep were not seen. No focal or generalized epileptiform activity was seen. IMPRESSION: This is an abnormal EEG due to background slowing of moderate degree. This is suggestive of generalized cerebral dysfunction as can be seen with toxic metabolic encephalopathy, or related to diffuse structural brain abnormality. Clinical correlation is recommended. No epileptiform activity was seen. There were intermittent periods of relatively normal appearing background activity seen, which may suggest better prognosis. Followup EEG recommended, if clinically indicated. MMSALLY / CHELON: [id number] / [facility]OSPITALGail
[2024-09-01 06:19] LABS: Glucose,Whole Blood 106 mg/dL (70-110)
[2024-09-01 06:32] LABS: Anisocytosis Slight; Basophils % (A) 0 %; Eosinophils # (A) 0.2 k/uL (0-0.7); Eosinophils % (A) 1 %; HCT 30.2 % (39.0-53.0); HGB 9.7 gm/dL (13.0-17.5); Hypochromasia Slight; Lymphocytes # (A) 1.2 k/uL (1.0-4.8); Lymphocytes % (A) 10 %; MCH 31.5 pg (25.0-35.0); MCHC 32.1 g/dL (31.0-37.0); Macrocytosis Slight; Mean Platelet Volume 12.1; Monocytes # (A) 0.8 k/uL (0-1.0); Monocytes % (A) 8 %; Neutrophils # (A) 8.6 k/uL (1.3-7.7); Neutrophils % (A) 78 %; RBC 3.08 m/uL (4.30-5.90)
[2024-09-01 06:34] LABS: Platelet Count 73 k/uL (150-450)
[2024-09-01 06:39] LABS: African American GFR (CKD) 9 (>60 ml/min/1.73 sqM); Anion Gap 8 mmol/L; Blood Urea Nitrogen 62 mg/dL (9-20); Calcium 8.2 mg/dL (8.4-10.2); Carbon Dioxide 27 mmol/L (22-30); Chloride 102 mmol/L (98-107); Glucose 110 mg/dL (74-99); Non-African American GFR(CKD) 8 (>60 ml/min/1.73 sqM); Potassium 3.9 mmol/L (3.5-5.1); Sodium 137 mmol/L (137-145)
--- NOTE | 2024-09-01 07:38 | P.PN ---
Subjective Progress Note Date: 09/01/24 PROGRESS NOTE The patient is a 44-year-old male with end-stage renal disease, history of hypertension who presented to the emergency room with change in mental status, in the emergency room he went apneic had a cardiac arrest with PEA rhythm. He underwent CPR on 3 occasions. He is intubated at this time, sedated, in sinus mechanism, on no vasopressors. He underwent dialysis yesterday. His potassium was elevated on presentation. He has a history of diabetes and hypertension. An echocardiogram in February showed an ejection fraction of 45 to 50% with moderate severe pulmonary hypertension and moderate tricuspid regurgitation. He has been followed by Dr. Martines on a regular basis. Apparently he did not have any missing dialysis sessions. Since admission he had no further cardiac arrest. He has no evidence of ventricular tachycardia or atrial fibrillation. Hemodynamically he has been stable. He is scheduled to undergo dialysis again today. August 31: The patient remains intubated, he is awake, alert, following command. His blood pressure is elevated. He has no arrhythmia. He has been given hydralazine for control of his blood pressure. There is no evidence of ventricular tachyar rhythmia. He underwent dialysis yesterday. Echocardiogram showed an ejection fraction of 35 to 40%, he had moderate pulmonary hypertension September 01: The patient is extubated, alert and oriented. In sinus mechanism. Hemodynamically stable, his blood pressure is under better control. He denies any chest discomfort, dizziness or palpitations. He denies any nausea. He was up yesterday. He has no evidence of malignant arrhythmia. Medications: Catapres patch 0.1 mg, hydralazine 75 mg 3 times daily, carvedilol 12.5 mg twice a day, aspirin, Entresto 2426 twice a day PHYSICAL EXAMINATION: Blood pressure 128/70 heart rate 70, LUNGS: Clear to auscultation HEART: Regular rate and rhythm, S1, S2. No S3. Systolic ejection murmur ABDOMEN: Soft, nontender, no organomegaly EXTREMETIES: No edema LAB: WBC 11.1, hemoglobin 9.7, BUN 62, creatinine 7.43. Potassium 3.9 IMPRESSION: 1. Respiratory failure with change in mental status, resolved., Extubated 2. Hypertension, under better control 3. End-stage renal disease on hemodialysis 4. History of cardiomyopathy 5. Troponin elevation probably related to the renal failure and type II event PLAN: 1. Increase Coreg 2. Follow blood pressure 3. Probable dialysis today 4. Increase physical activity 5. Depending on his progress further recommendations will be made Objective - Vital Signs Vital signs: Vital Signs Temp 98.0 F 09/01/24 04:00 Pulse 74 09/01/24 06:00 Resp 12 09/01/24 06:00 BP 128/70 09/01/24 06:00 Pulse Ox 100 09/01/24 06:00 FiO2 40 08/31/24 09:52 Intake & Output 08/31/24 09/01/24 09/01/24 18:59 06:59 18:59 Intake Total 544.927 200 Output Total 0 10 Balance 544.927 190 Weight 80 kg Intake: Intake, IV Titration 134.927 Amount Piperacillin-Tazobactam 3 100 .375 gm In Sodium Chloride 0.9% 100 ml @ 25 mls/hr IVPB Q12H [facility]ERINE Rx# :[id number] propofoL 1,000 mg In 34.927 Empty Bag 1 bag @ 10 MCG/ KG/MIN 3.402 mls/hr IV . Q24H KATHERINE Rx#:[id number] Oral 340 200 Tube Feeding 30 Other 40 Output: Urine 0 10 Other: Voiding Method Indwelling Catheter Indwelling Catheter # Bowel Movements 1 2 ABP, PAP, CO, CI - Last Documented Arterial Blood Pressure 155/64 - Labs CBC & Chem 7: 09/01/24 06:22 09/01/24 06:22 Labs: Abnormal Lab Results - Last 24 Hours (Table) 08/31/24 09/01/24 09/01/24 Range/Units 20:42 06:22 06:22 WBC 11.0 H (3.8-10.6) k/uL RBC 3.08 L (4.30-5.90) m/uL Hgb 9.7 L (13.0-17.5) gm/dL Hct 30.2 L (39.0-53.0) % RDW 18.0 H (11.5-15.5) % Plt Count 73 L (150-450) k/uL Neutrophils # 8.6 H (1.3-7.7) k/uL BUN 62 H (9-20) mg/dL Creatinine 7.43 H* (0.66-1.25) mg/dL Glucose 110 H (74-99) mg/dL POC Glucose (mg/dL) 111 H (70-110) mg/dL Calcium 8.2 L (8.4-10.2) mg/dL Microbiology - Last 24 Hours (Table) 08/28/24 13:03 Blood Culture - Preliminary Blood
--- NOTE | 2024-09-01 10:44 | P.PN ---
Subjective Progress Note Date: 08/31/24 Patient was seen for a follow-up. Patient's was present by the bedside. Patient was extubated today at 8 10:30 AM. He just feels tired, is frustrated, but is conversational. Patient offers no complaints. He is laying comfortably in the bed. Quite alert and awake. Objective - Vital Signs Vital signs: Vital Signs Temp 99.1 F 08/31/24 12:00 Pulse 78 08/31/24 14:00 Resp 16 08/31/24 14:00 BP 165/85 08/31/24 14:00 Pulse Ox 100 08/31/24 14:00 FiO2 40 08/31/24 09:52 Intake & Output 08/30/24 08/31/24 08/31/24 18:59 06:59 18:59 Intake Total 921.993 371.746 104.927 Output Total 2500 0 0 Balance -1578.007 371.746 104.927 Weight 78 kg Intake: IV 31 100 Piperacillin-Tazobactam 3 25 100 .375 gm In Sodium Chloride 0.9% 100 ml @ 25 mls/hr IVPB Q8H KATHERINE Rx#: [id number] Pressure Bag 6 Intake, IV Titration 250.993 161.746 34.927 Amount Piperacillin-Tazobactam 3 100 .375 gm In Sodium Chloride 0.9% 100 ml @ 25 mls/hr IVPB Q12H KATHERINE Rx# :[id number] propofoL 1,000 mg In 150.993 161.746 34.927 Empty Bag 1 bag @ 10 MCG/ KG/MIN 3.402 mls/hr IV . Q24H KATHERINE Rx#:[id number] Tube Feeding 50 110 30 Hemodialysis 500 Other 90 40 Output: Urine 0 0 0 Hemodialysis 1500 Hemodialysis Net Amount 1000 Other: Voiding Method Indwelling Catheter Indwelling Catheter Indwelling Catheter # Bowel Movements 1 1 ABP, PAP, CO, CI - Last Documented Arterial Blood Pressure 182/73 - Exam Patient is alert and awake, appears slightly slow mentation. But otherwise is much improved. Speech and language functions are normal. Patient knows it is August 2024 and that he is in [facility] in [place]. Knows name of the current president. Speech and language functions are normal. His visual pozo are full with the right eye. Patient has blindness left eye. Face is symmetric and tongue protrudes to midline. No evidence of tongue bite jh. On muscle status and there is no pronator drift and the strength is normal in arms and legs distally and proximally except left hip flexion which is about 5-. Sensory to touch is equal with no neglect. No ataxia for [id number] testing. - Labs CBC & Chem 7: 09/01/24 06:22 09/01/24 06:22 Labs: Abnormal Lab Results - Last 24 Hours (Table) 08/30/24 08/31/24 08/31/24 Range/Units 23:58 04:00 04:00 WBC 20.1 H (3.8-10.6) k/uL RBC 3.19 L (4.30-5.90) m/uL Hgb 9.9 L (13.0-17.5) gm/dL Hct 30.9 L (39.0-53.0) % RDW 18.5 H (11.5-15.5) % Plt Count 75 L (150-450) k/uL ABG pH (7.35-7.45) ABG pO2 (83-108) mmHg ABG HCO3 (21-25) mmol/L ABG Total CO2 (19-24) mmol/L ABG O2 Saturation (94-97) % Hemoglobin (13.0-17.5) gm/dL Sodium 135 L (137-145) mmol/L BUN 46 H (9-20) mg/dL Creatinine 5.49 H (0.66-1.25) mg/dL POC Glucose (mg/dL) 69 L (70-110) mg/dL Calcium 7.9 L (8.4-10.2) mg/dL 08/31/24 Range/Units 05:36 WBC (3.8-10.6) k/uL RBC (4.30-5.90) m/uL Hgb (13.0-17.5) gm/dL Hct (39.0-53.0) % RDW (11.5-15.5) % Plt Count (150-450) k/uL ABG pH 7.47 H (7.35-7.45) ABG pO2 181 H (83-108) mmHg ABG HCO3 30 H (21-25) mmol/L ABG Total CO2 31 H (19-24) mmol/L ABG O2 Saturation 99.7 H (94-97) % Hemoglobin 10.0 L (13.0-17.5) gm/dL Sodium (137-145) mmol/L BUN (9-20) mg/dL Creatinine (0.66-1.25) mg/dL POC Glucose (mg/dL) (70-110) mg/dL Calcium (8.4-10.2) mg/dL Microbiology - Last 24 Hours (Table) 08/28/24 13:03 Blood Culture - Preliminary Blood Assessment and Plan Assessment: * Acute PEA cardiopulmonary arrest x 3. Total downtime 16 minutes (3 minutes, 6 minutes and 7 minutes.) * Patient is extubated, mentation almost back to normal. * Encephalopathy, likely combination of metabolic/hypoxic encephalopathy, remarkably improved. * Acute hypoxic respiratory failure, status post extubation 08/31/2024 * Hyperkalemia * Fever, leukocytosis, rule out sepsis. * Lactic acidosis, likely due to above * Acute hypotension postcardiac arrest, improved. * Chronic anemia * Thrombocytopenia * End-stage renal disease on hemodialysis. * Diabetes * Hypertension * Coronary artery disease, history of ischemic cardiomyopathy * CHF * Diabetic peripheral neuropathy * Dyslipidemia * Blindness left eye Plan: * Patient is extubated, mentation appears to be normal. Following all directions. Strength appears fairly normal. Patient is doing remarkably well. * EEG was abnormal due to background slowing suggestive of moderate encephalopathy. There were periods of relatively normal appearing background activity, which may suggest better prognosis. No epileptiform activity was seen. * No indication for antiepileptic medication * Patient currently on Zosyn. * Cardiology also following. * Discussed with nursing staff and patient's in detail. * Treatment of other medical conditions as per IM and other specialties on board.
[2024-09-01 11:31] LABS: Glucose,Whole Blood 99 mg/dL (70-110)
[2024-09-01] MEDS ORDERED: LOPERAMIDE 2 MG CAP PO PRN (11:55)
[2024-09-01] MEDS ORDERED: hydrALAZINE HCL 20 MG/ML 1 ML VIAL IVP PRN (11:55)
--- NOTE | 2024-09-01 12:12 | P.PN ---
Subjective patient is seen for follow-up for end-stage renal disease. seen on hemodialysis today. Patient is awake and comfortable. No significant complaints. Objective - Vital Signs Vital signs: Vital Signs Temp 98.1 F 09/01/24 08:00 Pulse 71 09/01/24 11:00 Resp 18 09/01/24 11:00 BP 161/81 09/01/24 11:00 Pulse Ox 100 09/01/24 11:00 FiO2 40 08/31/24 09:52 Intake & Output 08/31/24 09/01/24 09/01/24 18:59 06:59 18:59 Intake Total 544.927 200 60 Output Total 0 10 0 Balance 544.927 190 60 Weight 80 kg Intake: IV 60 0.9 at KVO 60 Intake, IV Titration 134.927 Amount Piperacillin-Tazobactam 3 100 .375 gm In Sodium Chloride 0.9% 100 ml @ 25 mls/hr IVPB Q12H KATHERINE Rx# :[id number] propofoL 1,000 mg In 34.927 Empty Bag 1 bag @ 10 MCG/ KG/MIN 3.402 mls/hr IV . Q24H KATHERINE Rx#:[id number] Oral 340 200 Tube Feeding 30 Other 40 Output: Urine 0 10 0 Other: Voiding Method Indwelling Catheter Indwelling Catheter # Bowel Movements 1 2 ABP, PAP, CO, CI - Last Documented Arterial Blood Pressure 190/75 - Exam patient is awake and alert oriented 3. Examination of the heart S1 and S2 Examination lungs bilateral breath sounds are heard Abdomen is soft nontender Examination of lower extremity shows no significant edema Left heel is wrapped - Labs CBC & Chem 7: 09/01/24 06:22 09/01/24 06:22 Labs: Abnormal Lab Results - Last 24 Hours (Table) 08/31/24 09/01/24 09/01/24 Range/Units 20:42 06:22 06:22 WBC 11.0 H (3.8-10.6) k/uL RBC 3.08 L (4.30-5.90) m/uL Hgb 9.7 L (13.0-17.5) gm/dL Hct 30.2 L (39.0-53.0) % RDW 18.0 H (11.5-15.5) % Plt Count 73 L (150-450) k/uL Neutrophils # 8.6 H (1.3-7.7) k/uL BUN 62 H (9-20) mg/dL Creatinine 7.43 H* (0.66-1.25) mg/dL Glucose 110 H (74-99) mg/dL POC Glucose (mg/dL) 111 H (70-110) mg/dL Calcium 8.2 L (8.4-10.2) mg/dL Microbiology - Last 24 Hours (Table) 08/28/24 13:03 Blood Culture - Preliminary Blood Assessment and Plan Assessment: 1. End-stage renal disease maintained on hemodialysis on Friday riday schedule. 2. Status post cardiac arrest x 3 August 28, 2024. No PE noted on CTA. 3. Hyperkalemia secondary to chronic kidney disease, post CPR improved postdialysis. 4. Hypocalcemia secondary to chronic kidney disease. status post replacement 5. Hypertension with chronic kidney disease. 6. Chronic systolic CHF ejection fraction of 45 to 50% with moderate tricuspid regurgitation. 7. Chronic kidney disease mineral bone disease. 8. Leukocytosis. Questionable infectious versus reactive. On antibiotics and improved Plan: continue hemodialysis on Friday schedule
--- NOTE | 2024-09-01 12:37 | P.PN ---
Subjective Progress Note Date: 09/01/24 Principal diagnosis: Cardiac arrest/PEA x 3 This is a 44-year-old male patient with incisional disease on hemodialysis. The patient came in to the emergency department this morning with altered mentation. Upon arrival, the patient went apneic and he went into a pulseless PEA rhythm. As such, he was started on resuscitation based on the ACLS protocol and the patient was given CPR and he was intubated. Noted he underwent a 2 additional episodes of cardiac arrest. Noted initial code was 42 minutes, subsequent codes for for 6 minutes and 7 minutes. During the second code, he received a total of 2 doses of epinephrine and a third code he was given 3 doses of epinephrine. He was also given calcium gluconate and bicarb. At the time of my arrival, there was return of spontaneous circulation and the patient was already on pressors and he was on norepinephrine running at 0.06 mcg/kg/min and he had received a total of 2 L of IV fluid bolus. He was in the mechanical ventilator assist- control mode with rate of 20, tidal volume of 350, FiO2 of 100% with a PEEP of 5. He is post intubation chest x-ray was reviewed and it showed cardiomegaly and volume overload. ET tube was adjusted. NG tube was in place. There was marked cardiomegaly. Subsequently, the patient was given a CT angiogram of the chest that showed no evidence of any pulmonary embolism. There was some small bibasilar infiltrates/effusions and marked cardiomegaly. CAT scan of the brain was also done that showed no acute intracranial bleed and the patient had scarring of his vitreous in his left globe. EKG was consistent with normal sinus rhythm. No ST segment elevations or depressions. The patient's white cell count was at 31.6. Hemoglobin was 11 and a platelet count was 61. INR was at 1.8 and a D-dimer was 9.0 with a PTT of 35. Postintubation blood gas showed a pH of 7.39 with a pCO2 of 48 pO2 of more than 420. BUN was 31 with a creatinine of 7.4 and a sodium level was at 135 and a potassium level was 6 with a chloride of 98 and a bicarb level of 20. Initial lactic acid level was at 8.0. proBNP level was more than 100,000 and the troponin was at 0.07. LFTs were essentially within normal limits. The patient was also started on low-dose propofol running at 10 mcg/kg/min. No additional information is available. According to the , the patient was confused yesterday after dialysis. No significant ultrafiltration was done. No reported fever. No falls. No head trauma. He has a functional AV fistula in the right upper extremity. The patient was in the hospital back in May 2024 and at that time, he was treated for shortness of breath and nausea and he continues to undergo hemodialysis with good results Comorbidities include end-stage renal disease on hemodialysis, diabetes mellitus type 2, diabetic neuropathy, coronary artery disease with prior PCI, ischemic cardiomyopathy with ejection fraction of 45 to 50% and the echocardiogram that was done on 03/08/2024 showed an EF of around 45 to 50% with global hypokinesis and severe thickness of the LV wall with small pericardial effusion.. She also has anemia of chronic disease and hyperlipidemia. On 08/29/2024, the patient is being seen for a follow-up. The patient is postcardiac arrest and the patient is currently in the intensive care and intubated on the mechanical ventilator. Noted his potassium level was also elevated and the patient was dialyzed yesterday. On today's evaluation, the patient is on propofol for sedation. Calm and comfortable. Synchronous with mechanical ventilator with a rate of 20, tidal volume of 350, FiO2 40% with a PEEP of 5. Blood gas showed a pH of 7.45 with a pCO2 of 47 and pO2 of 147. The patient was taken off norepinephrine at around midnight. He is also off vasopressin. IV fluids are currently at KVO. No urine output. Lactic acid level is dropped down to 1.3. Hemodialysis was done yesterday with a total of 1 L of ultrafiltration. Meanwhile, his white cell count remains elevated at 30 and the patient remains on a combination of Zosyn and vancomycin pending further cultures. BUN is 22 with a creatinine of 3.57. Potassium levels is down to 3.5. Bicarb is at 19. Sodium is at 138. The hemoglobin is stable at 11. Chest x-ray findings from today are essentially stable without any significant abnormalities. ET tube needs to be pushed in by around 2 cm. There is improved aeration in the right lung base along with ongoing cardiomegaly. No seizure activity. Patient was seen today on 08/30/2024, patient remains in the ICU, intubated and mechanically ventilated, he is on assist-control rate of 20 tidal volume 350 FiO2 40% and PEEP of 5 ABG showed a pO2 of 188 pCO2 45 pH of 7.43, patient is on propofol at 30 mcg/kg/min, patient is receiving hemodialysis during my evaluation. Patient is not requiring any pressors at this point, he is tolerating hemodialysis quite well. Looking back at the history of this patient, apparently he coded x 3. Mentation is still poor, the patient may have sustained anoxic brain injury however I plan to assess neurologically after being off sedation/propofol for a few hours. Not quite ready for any weaning trials at this point yet. Chest x-ray showed no evidence of pneumonia, no evidence of pulmonary edema, however his endotracheal tube seems to be sitting high, it will be advanced as [id number] considering the tube is only size 6, I will change the tube today.Patient continues to have leukocytosis with WBC of 23.8 hemoglobin is 9.7, electrolytes are normal BUN is 54 creatinine 7.23 procalcitonin level on admission is over 100. Patient remains empirically on Zosyn as per infectious disease on the case. Vancomycin has been discontinued. Evaluated today on 08/31/2024, remains in the ICU, intubated and mechanically ventilated. Patient is on assist-control rate of 20 tidal volume 350 FiO2 40% and PEEP of 5 ABG showed a pO2 of 181 pCO2 42 pH of 7.47. Remains on propofol at 40 mcg/kg/min remains on Nepro at 10 mL/h/enteral feeding, patient is arousable today, follows simple instructions even on propofol. WBC count is 20.1 hemoglobin is 9.9 basic metabolic profile is normal BUN is 46 creatinine 5.49 chest x-ray showed scattered interstitial prominence possible some component of pulmonary edema. Blood cultures and sputum cultures have been noted to be negative patient was seen by cardiology and he was placed back on Entresto for his cardiomyopathy and LV dysfunction Patient evaluated today on 09/01/2024, remains in the ICU, undergoing hemodialysis today. Patient is doing relatively well, not in any distress is actually on room air, no major cardiac issues overnight. Patient is hemodynamically stable, echocardiogram showed evidence of LV dysfunction with ejection fraction of 35% he was also noted to have moderate pulmonary hypertension. Patient tolerated the extubation well, and does not seem to be in any distress today. He is in sinus rhythm, hemodynamically stable. Patient was seen by cardiology, and his Coreg dose was increased. WBC count is 11 hemoglobin is 9.7 electrolytes are normal BUN is 62 creatinine 7.43 Objective - Vital Signs Vital signs: Vital Signs Temp 98.1 F 09/01/24 08:00 Pulse 71 09/01/24 11:00 Resp 18 09/01/24 11:00 BP 161/81 09/01/24 11:00 Pulse Ox 100 09/01/24 11:00 FiO2 40 08/31/24 09:52 Intake & Output 08/31/24 09/01/24 09/01/24 18:59 06:59 18:59 Intake Total 544.927 200 60 Output Total 0 10 0 Balance 544.927 190 60 Weight 80 kg Intake: IV 60 0.9 at KVO 60 Intake, IV Titration 134.927 Amount Piperacillin-Tazobactam 3 100 .375 gm In Sodium Chloride 0.9% 100 ml @ 25 mls/hr IVPB Q12H [facility]INE Rx# :[id number] propofoL 1,000 mg In 34.927 Empty Bag 1 bag @ 10 MCG/ KG/MIN 3.402 mls/hr IV . Q24H KATHERINE Rx#:[id number] Oral 340 200 Tube Feeding 30 Other 40 Output: Urine 0 10 0 Other: Voiding Method Indwelling Catheter Indwelling Catheter # Bowel Movements 1 2 ABP, PAP, CO, CI - Last Documented Arterial Blood Pressure 190/75 - Exam General: Revealed 44-year-old -[place] male on room air, not in any distress fully awake Head: Atraumatic, normocephalic Neck supple no neck masses no JVD no stridor Lungs diminished breath sound bilaterally no crackles rhonchi or wheezes Cardiac distant S1-S2, no S3 gallop, no murmur. Abdominal exam: Soft nontender no megaly no rebound no guarding Extremities: No clubbing edema or cyanosis Skin: No rashes Neurologic: Awake, alert oriented x 3 no gross focal deficit Psychiatric: Normal mood, affect and normal mental status examination - Labs CBC & Chem 7: 09/01/24 06:22 09/01/24 06:22 Labs: Abnormal Lab Results - Last 24 Hours (Table) 08/31/24 09/01/24 09/01/24 Range/Units 20:42 06:22 06:22 WBC 11.0 H (3.8-10.6) k/uL RBC 3.08 L (4.30-5.90) m/uL Hgb 9.7 L (13.0-17.5) gm/dL Hct 30.2 L (39.0-53.0) % RDW 18.0 H (11.5-15.5) % Plt Count 73 L (150-450) k/uL Neutrophils # 8.6 H (1.3-7.7) k/uL BUN 62 H (9-20) mg/dL Creatinine 7.43 H* (0.66-1.25) mg/dL Glucose 110 H (74-99) mg/dL POC Glucose (mg/dL) 111 H (70-110) mg/dL Calcium 8.2 L (8.4-10.2) mg/dL Microbiology - Last 24 Hours (Table) 08/28/24 13:03 Blood Culture - Preliminary Blood Assessment and Plan Assessment: Impression Acute cardiopulmonary arrest and the patient had PEA cardiac arrest x 3 Possible anoxic brain injury Acute hypoxic respiratory failure, secondary to above Hyperkalemia with a potassium level of 6.8, improved post hemodialysis potassium level is normalized Acute hypotension, postcardiac arrest. Required pressors, could be cardiogenic or hypovolemic in nature, or could be related to both Acute leukocytosis, rule out reactive, rule out sepsis/infection Acute leukocytosis postcardiac arrest, currently on Zosyn procalcitonin level extremely elevated End stage renal disease maintained on MWF hemodialysis schedule undergoing hemodialysis today. Benign essential hypertension Underlying coronary artery disease and previous PCI History of ischemic cardiomyopathy and LV dysfunction with ejection fraction of 45 to 50% History of chronic diastolic congestive heart failure Type 2 diabetes Chronic anemia GERD without esophagitis History of diabetic peripheral neuropathy Dyslipidemia Recommendation: Transfer patient to a monitored bed on 3 S. today. Incentive spirometry Continue hemodialysis Continue nutritional support Continue antibiotics/Zosyn Continue hemodialysis as felt necessary by nephrology on the case Continue GI and DVT prophylaxis patient is on subcu heparin Will continue to follow Time with Patient: Less than 30
[2024-09-01] MEDS: CHOLESTYRAMINE (WITH SUGAR) 4 GM PACKET PO SCH (12:40)
--- NOTE | 2024-09-01 14:15 | P.PN ---
Subjective Progress Note Date: 09/01/24 Interval History: patient is a 44-year-old gentleman past medical history significant for end- stage renal disease on dialysis who presented to the ER for altered mental status. History was limited as patient was altered. According to patient was acting confused yesterday after dialysis. There was no complaint of fever or chills. Later in the night noticed the patient was having difficulty in breathing. This morning patient was found to be very confused so was brought to the ER. By the time patient came to the ER patient stopped breathing with loss of pulse,, CPR was initiated, ROSC was achieved but pulse was again lost with further 2 rounds of CPR, patient received epi, sodium bicarb and in the process. Patient was intubated in the process. Initial lab work done in the ER showed WBC 31.6, hemoglobin 11, platelet count 61, D-dimer 9.08, sodium 135, potassium 5, BUN 31, creatinine 7.48, calcium 8.2 troponin 0.072 EKG done in the ER showed heart rate of66 , no ST segment elevation or depression seen, no T-wave inversions seen. Chest x-ray done in the ER showed marked cardiomegaly, acute cardiopulmonary disease involving the right lung CT head done showed no acute intracranial process CTA chest done showed no evidence of pulmonary embolism, small bibasilar infiltrates and effusions seen Patient admitted to internal medicine service in ICU 08/29. Patient seen and examined. Blood work done showed WBC 30.1, hemoglobin 11, platelet count 66, sodium 130, potassium 3.5, BUN 22, creatinine 3.57, calcium 5.4 AST 218, ALT 140 patient is currently off all the pressors. Patient sedation was weaned off and patient was opening his eyes and trying to get up. 08/30/2024 Patient remains in the ICU, intubated and on mechanical ventilation, ICU following, remains on propofol, was receiving hemodialysis today during evaluation. Not on vasopressors. Concern for anoxic brain injury, neurology evaluation after sedation break. Chest x-ray negative for acute process. Labs showed WBCs 23.8, hemoglobin 9.7, BUN 54, creatinine 7.23. Procalcitonin on admission was over 100. Patient on Zosyn per infectious disease, vancomycin has been discontinued. ICU, nephrology, infectious disease and cardiology following. They recommended ultrasound liver and gallbladder. Cardiology recommended to resume beta-jamarcus and clonidine to prevent blood pressure rebound. 08/31/2024 Patient was extubated this morning, alert and oriented x 3. at bedside. Blood pressure on the higher side. Chest x-ray showed some component of pulmonary edema. Blood culture and sputum culture remain negative. Cardiology started Entresto. Ultrasound liver showed hepatomegaly with mild fatty infiltration, small amount of free fluid within the abdomen, small pleural effusion, right renal cyst. Echocardiogram showed moderate pulmonary hypertension, moderately dilated RV, no pericardial effusion. 09/01/2024 Patient was seen and examined today. Patient feeling better today. Alert kamron ented x 3. On room air. Undergoing hemodialysis. Blood pressure elevated. Echocardiogram showed EF 35%, moderate pulmonary hypertension. WBCs 11.0, hemoglobin 9.7, platelets 73. Creatinine 7.43, potassium 3.9. BUN 62. Nephrology ICU and cardiology following. Cardiology increased Coreg dose due to elevated blood pressure. Planes of loose stool likely secondary to antibiotics. On Zosyn per infectious disease. Assessment and plan: Septic shock--unknown source Cardiac arrest with pulseless electrical activity Acute metabolic encephalopathy Acute hypoxemic respiratory failure requiring mechanical ventilation Hyponatremia Hyperkalemia Acute transaminitis Thrombocytopenia End-stage renal disease on dialysis Lactic acidosis Hypertension Coronary artery disease with prior PCI. Ischemic cardiomyopathy EF 45-50% Chronic systolic heart failure Diabetes mellitus type 2 Anemia of chronic disease Gastroesophageal reflux disease Diabetic peripheral neuropathy Dyslipidemia Plan: Continue telemetry monitoring Continue vent management--- extubated 08/31/2024 Aggressive bronchopulmonary hygiene Monitor troponins. Was on tube feeding, start p.o. intake. ICU following Nephrology following ID consultedbren Gilmore [place] vancomycin, ultrasound of the gallbladder. Consulted cardiology following -consulted cardiology---aspirin, Coreg, clonidine, hydralazine, Entresto. -- Echocardiogram--EF 35 to 40%. Moderate pulmonary hypertension, moderately dilated RV-, no pericardial effusion. --ultrasound liver and gallbladder---hepatomegaly with mild fatty infiltration, small amount of free fluid within the abdomen, small pleural effusion, right renal cyst. -- Neurology consult for evaluation of anoxic brain injury--ordered EEG. Epileptiform activity, changes suggestive of toxic metabolic encephalopathy. DVT prophylaxis: Subtenons heparin Monitor vital signs and labs Labs and medication were reviewed. Continue same treatment. Further recommendations as per clinical course of the patient PHYSICAL EXAMINATION: GENERAL: The patient is A&O x3, NAD HEENT: EOMI, Sclerae anicteric, Moist Mucous membranes Neck: Supple, Non tender, No JVD PULMONARY: Equal breath souds B/L, No wheezing, No crackles. CARDIOVASCULAR: S1, S2 present. No murmurs, rubs, or gallops. ABDOMEN: Soft, nontender, nondistended, normoactive bowel sounds. No guarding or rebound tenderness. MUSCULOSKELETAL: No edema, No cyanosis. No clubbing. Normal ROM. Intact peripheral pulses. NEUROLOGICAL: CN 2-12 grossly intact. No FND Skin: No Rash REVIEW OF SYSTEMS: CONSTITUTIONAL: No fever or chills. Complains of fatigue. CARDIOVASCULAR: No chest pain, palpitations or syncope. PULMONARY: No shortness of breath, no cough, sore throat. GASTROINTESTINAL: No nausea, vomiting, diarrhea, abdominal pain. : No Dysuria, urgency, frequency. Extremities: No edema. NEUROLOGICAL: No headaches, no weakness, or numbness Dictation was produced using [employer] dictation software. please excuse any grammatical, word or spelling errors. Objective - Vital Signs Vital signs: Vital Signs Temp 97.5 F L 09/01/24 12:00 Pulse 74 09/01/24 12:00 Resp 14 09/01/24 12:00 BP 171/86 09/01/24 12:00 Pulse Ox 100 09/01/24 12:00 FiO2 40 08/31/24 09:52 Intake & Output 08/31/24 09/01/24 09/01/24 18:59 06:59 18:59 Intake Total 544.927 200 60 Output Total 0 10 0 Balance 544.927 190 60 Weight 80 kg Intake: IV 60 0.9 at KVO 60 Intake, IV Titration 134.927 Amount Piperacillin-Tazobactam 3 100 .375 gm In Sodium Chloride 0.9% 100 ml @ 25 mls/hr IVPB Q12H [facility] Rx# :[id number] propofoL 1,000 mg In 34.927 Empty Bag 1 bag @ 10 MCG/ KG/MIN 3.402 mls/hr IV . Q24H [facility]INE Rx#:[id number] Oral 340 200 Tube Feeding 30 Other 40 Output: Urine 0 10 0 Other: Voiding Method Indwelling Catheter Indwelling Catheter # Bowel Movements 1 2 ABP, PAP, CO, CI - Last Documented Arterial Blood Pressure 207/80 - Labs CBC & Chem 7: 09/01/24 06:22 09/01/24 06:22 Labs: Abnormal Lab Results - Last 24 Hours (Table) 08/31/24 09/01/24 09/01/24 Range/Units 20:42 06:22 06:22 WBC 11.0 H (3.8-10.6) k/uL RBC 3.08 L (4.30-5.90) m/uL Hgb 9.7 L (13.0-17.5) gm/dL Hct 30.2 L (39.0-53.0) % RDW 18.0 H (11.5-15.5) % Plt Count 73 L (150-450) k/uL Neutrophils # 8.6 H (1.3-7.7) k/uL BUN 62 H (9-20) mg/dL Creatinine 7.43 H* (0.66-1.25) mg/dL Glucose 110 H (74-99) mg/dL POC Glucose (mg/dL) 111 H (70-110) mg/dL Calcium 8.2 L (8.4-10.2) mg/dL Microbiology - Last 24 Hours (Table) 08/28/24 13:03 Blood Culture - Preliminary Blood
[2024-09-01 16:26] LABS: Glucose,Whole Blood 135 mg/dL (70-110)
[2024-09-01] MEDS: carvediloL 12.5 MG TAB PO SCH (17:29)
[2024-09-01 20:05] LABS: Glucose,Whole Blood 148 mg/dL (70-110)
[2024-09-01] MEDS: ACETAMINOPHEN TAB 325 MG TAB PO STA (21:12)
[2024-09-02 06:11] LABS: Glucose,Whole Blood 160 mg/dL (70-110)
[2024-09-02 08:37] VITALS: BP 168/86; PULSE 71; RESP 16; TEMP 98.6
[2024-09-02 08:41] LABS: African American GFR (CKD) 12 (>60 ml/min/1.73 sqM); Anion Gap 19 mmol/L; Blood Urea Nitrogen 49 mg/dL (9-20); Calcium 9.1 mg/dL (8.4-10.2); Carbon Dioxide 22 mmol/L (22-30); Chloride 105 mmol/L (98-107); Glucose 169 mg/dL (74-99); Non-African American GFR(CKD) 10 (>60 ml/min/1.73 sqM); Sodium 146 mmol/L (137-145)
[2024-09-02 08:43] LABS: Potassium 5.3 mmol/L (3.5-5.1)
[2024-09-02 09:59] LABS: Anisocytosis Slight; Basophils % (A) 0 %; Eosinophils # (A) 0.1 k/uL (0-0.7); Eosinophils % (A) 3 %; HGB 10.9 gm/dL (13.0-17.5); Hypochromasia Slight; Lymphocytes % (A) 18 %; MCH 31.2 pg (25.0-35.0); MCHC 31.9 g/dL (31.0-37.0); MCV 97.7 fL (80.0-100.0); Macrocytosis Slight; Mean Platelet Volume 12.9; Monocytes # (A) 0.6 k/uL (0-1.0); Monocytes % (A) 11 %; Neutrophils # (A) 3.5 k/uL (1.3-7.7); Neutrophils % (A) 64 %; Platelet Count 105 k/uL (150-450); RBC 3.48 m/uL (4.30-5.90); RDW 18.1 % (11.5-15.5); WBC 5.4 k/uL (3.8-10.6)
--- NOTE | 2024-09-02 10:07 | P.PN ---
Subjective Progress Note Date: 09/01/24 Patient was seen for a follow-up. Patient appears even more alert and awake, comfortable. Physical therapy and Occupational Therapy has seen the patient, and apparently patient walked, was very oriented. He did well. He walked by himself. Patient is back to baseline. Patient's has mentioned that patient has history of hemodialysis for last 4 years. He has diabetes, hypertension and CAD. Denies any tobacco alcohol use or any drug use. Objective - Vital Signs Vital signs: Vital Signs Temp 97.5 F L 09/01/24 12:00 Pulse 77 09/01/24 14:00 Resp 19 09/01/24 14:00 BP 164/80 09/01/24 14:00 Pulse Ox 99 09/01/24 13:00 FiO2 40 08/31/24 09:52 Intake & Output 08/31/24 09/01/24 09/01/24 18:59 06:59 18:59 Intake Total 544.927 200 60 Output Total 0 10 0 Balance 544.927 190 60 Weight 80 kg Intake: IV 60 0.9 at KVO 60 Intake, IV Titration 134.927 Amount Piperacillin-Tazobactam 3 100 .375 gm In Sodium Chloride 0.9% 100 ml @ 25 mls/hr IVPB Q12H [facility] Rx# :[id number] propofoL 1,000 mg In 34.927 Empty Bag 1 bag @ 10 MCG/ KG/MIN 3.402 mls/hr IV . Q24H [facility]INE Rx#:[id number] Oral 340 200 Tube Feeding 30 Other 40 Output: Urine 0 10 0 Other: Voiding Method Indwelling Catheter Indwelling Catheter # Bowel Movements 1 2 ABP, PAP, CO, CI - Last Documented Arterial Blood Pressure 170/62 - Exam Patient is alert and awake, normal mentation. Speech and language functions are normal. Patient knows it is August 2024 and that he is in [facility] in [place]. Knows name of the current president. Speech and language functions are normal. His visual pozo are full with the right eye. Patient has blindness left eye. Face is symmetric and tongue protrudes to midline. No evidence of tongue bite jh. On muscle status and there is no pronator drift and the strength is normal in arms and legs distally and proximally except left hip flexion which is about 5-. Sensory to touch is equal with no neglect. No ataxia for [id number] testing. Patient walked with the therapist and was stable. - Labs CBC & Chem 7: 09/02/24 08:54 09/02/24 08:09 Labs: Abnormal Lab Results - Last 24 Hours (Table) 08/31/24 09/01/24 09/01/24 Range/Units 20:42 06:22 06:22 WBC 11.0 H (3.8-10.6) k/uL RBC 3.08 L (4.30-5.90) m/uL Hgb 9.7 L (13.0-17.5) gm/dL Hct 30.2 L (39.0-53.0) % RDW 18.0 H (11.5-15.5) % Plt Count 73 L (150-450) k/uL Neutrophils # 8.6 H (1.3-7.7) k/uL BUN 62 H (9-20) mg/dL Creatinine 7.43 H* (0.66-1.25) mg/dL Glucose 110 H (74-99) mg/dL POC Glucose (mg/dL) 111 H (70-110) mg/dL Calcium 8.2 L (8.4-10.2) mg/dL Microbiology - Last 24 Hours (Table) 08/28/24 13:03 Blood Culture - Preliminary Blood Assessment and Plan Assessment: * Status post PEA cardiopulmonary arrest x 3. Total downtime 16 minutes (3 minutes, 6 minutes and 7 minutes.). Patient has recovered very well, fully oriented, examination nonfocal. * Patient is extubated, mentation back to normal. * Metabolic encephalopathy, resolved * Acute hypoxic respiratory failure, status post extubation 08/31/2024 * Hyperkalemia * Fever, leukocytosis, rule out sepsis. * Lactic acidosis, likely due to above * Acute hypotension postcardiac arrest, improved. * Chronic anemia * Thrombocytopenia * End-stage renal disease on hemodialysis. * Diabetes * Hypertension * Coronary artery disease, history of ischemic cardiomyopathy * CHF * Diabetic peripheral neuropathy * Dyslipidemia * Blindness left eye Plan: * Patient is extubated, mentation appears to be normal. Following all directions. Strength appears fairly normal. Patient is doing remarkably well. * EEG was abnormal due to background slowing suggestive of moderate encephalopathy. There were periods of relatively normal appearing background activity, which may suggest better prognosis. No epileptiform activity was seen. * No indication for antiepileptic medication * Patient currently on Zosyn. * Cardiology also following. * Discussed with nursing staff and patient's in detail. * Treatment of other medical conditions as per IM and other specialties on board. * Neurologically clear.
[2024-09-02 11:30] VITALS: BMI 23.9
[2024-09-02 11:38] LABS: Glucose,Whole Blood 206 mg/dL (70-110)
--- NOTE | 2024-09-02 12:05 | P.PN ---
Subjective patient is seen for follow-up for end-stage renal disease. no significant complaints. Tolerated hemodialysis well yesterday. Objective - Vital Signs Vital signs: Vital Signs Temp 98.6 F 09/02/24 08:00 Pulse 71 09/02/24 08:00 Resp 16 09/02/24 08:00 BP 168/86 09/02/24 08:00 Pulse Ox 100 09/02/24 11:07 FiO2 40 08/31/24 09:52 Intake & Output 09/01/24 09/02/24 09/02/24 18:59 06:59 18:59 Intake Total 560 0 Output Total 5500 0 Balance -4940 0 0 Weight 80 kg Intake: IV 60 0.9 at KVO 60 Oral 0 Hemodialysis 500 Output: Urine 0 0 Hemodialysis 3000 Hemodialysis Net Amount 2500 Other: # Voids 1 # Bowel Movements 1 ABP, PAP, CO, CI - Last Documented Arterial Blood Pressure 183/69 - Exam patient is awake and alert oriented 3. Examination of the heart S1 and S2 Examination lungs bilateral breath sounds are heard Abdomen is soft nontender Examination of lower extremity shows no significant edema Left heel is wrapped - Labs CBC & Chem 7: 09/02/24 08:54 09/02/24 08:09 Labs: Abnormal Lab Results - Last 24 Hours (Table) 09/01/24 09/01/24 09/02/24 Range/Units 16:23 20:03 06:09 RBC (4.30-5.90) m/uL Hgb (13.0-17.5) gm/dL Hct (39.0-53.0) % RDW (11.5-15.5) % Plt Count (150-450) k/uL Sodium (137-145) mmol/L Potassium (3.5-5.1) mmol/L BUN (9-20) mg/dL Creatinine (0.66-1.25) mg/dL Glucose (74-99) mg/dL POC Glucose (mg/dL) 135 H 148 H 160 H (70-110) mg/dL 09/02/24 09/02/24 09/02/24 Range/Units 08:09 08:54 11:36 RBC 3.48 L (4.30-5.90) m/uL Hgb 10.9 L (13.0-17.5) gm/dL Hct 34.0 L (39.0-53.0) % RDW 18.1 H (11.5-15.5) % Plt Count 105 L (150-450) k/uL Sodium 146 H (137-145) mmol/L Potassium 5.3 H (3.5-5.1) mmol/L BUN 49 H (9-20) mg/dL Creatinine 6.17 H (0.66-1.25) mg/dL Glucose 169 H (74-99) mg/dL POC Glucose (mg/dL) 206 H (70-110) mg/dL Assessment and Plan Assessment: 1. End-stage renal disease maintained on hemodialysis on Friday schedule. 2. Status post cardiac arrest x 3 August 28, 2024. No PE noted on CTA. 3. Hyperkalemia secondary to chronic kidney disease, post CPR improved postdialysis. 4. Hypocalcemia secondary to chronic kidney disease. status post replacement 5. Hypertension with chronic kidney disease. 6. Chronic systolic CHF ejection fraction of 45 to 50% with moderate tricuspid regurgitation. 7. Chronic kidney disease mineral bone disease. 8. Leukocytosis. Questionable infectious versus reactive. On antibiotics and improved Plan: continue hemodialysis on Friday schedule8. Okay for discharge from nephrology standpoint.
--- NOTE | 2024-09-02 12:35 | P.PN ---
Subjective HISTORY OF PRESENT ILLNESS: The patient is a 44-year-old male with end-stage renal disease, history of hypertension who presented to the emergency room with change in mental status, in the emergency room he went apneic had a cardiac arrest with PEA rhythm. He underwent CPR on 3 occasions. He is intubated at this time, sedated, in sinus mechanism, on no vasopressors. He underwent dialysis yesterday. His potassium was elevated on presentation. He has a history of diabetes and hypertension. An echocardiogram in February showed an ejection fraction of 45 to 50% with moderate severe pulmonary hypertension and moderate tricuspid regurgitation. He has been followed by Dr. Martines on a regular basis. Apparently he did not have any missing dialysis sessions. Since admission he had no further cardiac arrest. He has no evidence of ventricular tachycardia or atrial fibrillation. Hemodynamically he has been stable. He is scheduled to undergo dialysis again today. August 31: The patient remains intubated, he is awake, alert, following command. His blood pressure is elevated. He has no arrhythmia. He has been given hydralazine for control of his blood pressure. There is no evidence of ventricular tachyarrhythmia. He underwent dialysis yesterday. Echocardiogram showed an ejection fraction of 35 to 40%, he had moderate pulmonary hypertension September 01: The patient is extubated, alert and oriented. In sinus mechanism. Hem odynamically stable, his blood pressure is under better control. He denies any chest discomfort, dizziness or palpitations. He denies any nausea. He was up yesterday. He has no evidence of malignant arrhythmia. 09/02/2024 Patient examined this morning the bedside. Patient currently denies chest pain or pressure. Patient denies shortness of breath. Blood pressures are slightly elevated with a systolic between [id number]. Patient states he will have hemodialysis performed tomorrow. PHYSICAL EXAM: VITAL SIGNS: Reviewed. GENERAL: Well-developed in no acute distress. NECK: Supple. No JVD or thyromegaly LUNGS: Respirations even and unlabored. Lungs essentially clear to auscultation bilaterally. HEART: Regular rate and rhythm. S1 and S2 heard. EXTREMITIES: Normal range of motion. No clubbing or cyanosis. Peripheral pulses intact. No lower extremity edema ASSESSMENT: 1. Respiratory failure with change in mental status, resolved., Extubated 2. Hypertension, under better control 3. End-stage renal disease on hemodialysis 4. History of cardiomyopathy 5. Troponin elevation probably related to the renal failure and type II event PLAN: Continue current cardiac medications Increase hydralazine to 100 mg 3 times a day Continue to monitor blood pressure Further recommendations pending patient course Nurse practitioner note has been reviewed by physician. Signing provider agrees with the documented findings, assessment, and plan of care documented by D[employer] OPERATOR HELPER as a scribe. Objective - Vital Signs Vital signs: Vital Signs Temp 98.6 F 09/02/24 08:00 Pulse 71 09/02/24 08:00 Resp 16 09/02/24 08:00 BP 168/86 09/02/24 08:00 Pulse Ox 100 09/02/24 11:07 FiO2 40 08/31/24 09:52 Intake & Output 09/01/24 09/02/24 09/02/24 18:59 06:59 18:59 Intake Total 560 0 Output Total 5500 0 Balance -4940 0 0 Weight 80 kg Intake: IV 60 0.9 at KVO 60 Oral 0 Hemodialysis 500 Output: Urine 0 0 Hemodialysis 3000 Hemodialysis Net Amount 2500 Other: # Voids 1 # Bowel Movements 1 ABP, PAP, CO, CI - Last Documented Arterial Blood Pressure 183/69 - Labs CBC & Chem 7: 09/02/24 08:54 09/02/24 08:09 Labs: Abnormal Lab Results - Last 24 Hours (Table) 09/01/24 09/01/24 09/02/24 Range/Units 16:23 20:03 06:09 RBC (4.30-5.90) m/uL Hgb (13.0-17.5) gm/dL Hct (39.0-53.0) % RDW (11.5-15.5) % Plt Count (150-450) k/uL Sodium (137-145) mmol/L Potassium (3.5-5.1) mmol/L BUN (9-20) mg/dL Creatinine (0.66-1.25) mg/dL Glucose (74-99) mg/dL POC Glucose (mg/dL) 135 H 148 H 160 H (70-110) mg/dL 09/02/24 09/02/24 09/02/24 Range/Units 08:09 08:54 11:36 RBC 3.48 L (4.30-5.90) m/uL Hgb 10.9 L (13.0-17.5) gm/dL Hct 34.0 L (39.0-53.0) % RDW 18.1 H (11.5-15.5) % Plt Count 105 L (150-450) k/uL Sodium 146 H (137-145) mmol/L Potassium 5.3 H (3.5-5.1) mmol/L BUN 49 H (9-20) mg/dL Creatinine 6.17 H (0.66-1.25) mg/dL Glucose 169 H (74-99) mg/dL POC Glucose (mg/dL) 206 H (70-110) mg/dL
--- NOTE | 2024-09-02 13:49 | P.PN ---
Subjective Progress Note Date: 09/02/24 Principal diagnosis: Cardiac arrest/PEA x 3 This is a 44-year-old male patient with incisional disease on hemodialysis. The patient came in to the emergency department this morning with altered mentation. Upon arrival, the patient went apneic and he went into a pulseless PEA rhythm. As such, he was started on resuscitation based on the ACLS protocol and the patient was given CPR and he was intubated. Noted he underwent a 2 additional episodes of cardiac arrest. Noted initial code was 42 minutes, subsequent codes for for 6 minutes and 7 minutes. During the second code, he received a total of 2 doses of epinephrine and a third code he was given 3 doses of epinephrine. He was also given calcium gluconate and bicarb. At the time of my arrival, there was return of spontaneous circulation and the patient was already on pressors and he was on norepinephrine running at 0.06 mcg/kg/min and he had received a total of 2 L of IV fluid bolus. He was in the mechanical ventilator assist- control mode with rate of 20, tidal volume of 350, FiO2 of 100% with a PEEP of 5. He is post intubation chest x-ray was reviewed and it showed cardiomegaly and volume overload. ET tube was adjusted. NG tube was in place. There was marked cardiomegaly. Subsequently, the patient was given a CT angiogram of the chest that showed no evidence of any pulmonary embolism. There was some small bibasilar infiltrates/effusions and marked cardiomegaly. CAT scan of the brain was also done that showed no acute intracranial bleed and the patient had scarring of his vitreous in his left globe. EKG was consistent with normal sinus rhythm. No ST segment elevations or depressions. The patient's white cell count was at 31.6. Hemoglobin was 11 and a platelet count was 61. INR was at 1.8 and a D-dimer was 9.0 with a PTT of 35. Postintubation blood gas showed a pH of 7.39 with a pCO2 of 48 pO2 of more than 420. BUN was 31 with a creatinine of 7.4 and a sodium level was at 135 and a potassium level was 6 with a chloride of 98 and a bicarb level of 20. Initial lactic acid level was at 8.0. proBNP level was more than 100,000 and the troponin was at 0.07. LFTs were essentially within normal limits. The patient was also started on low-dose propofol running at 10 mcg/kg/min. No additional information is available. According to the , the patient was confused yesterday after dialysis. No significant ultrafiltration was done. No reported fever. No falls. No head trauma. He has a functional AV fistula in the right upper extremity. The patient was in the hospital back in May 2024 and at that time, he was treated for shortness of breath and nausea and he continues to undergo hemodialysis with good results Comorbidities include end-stage renal disease on hemodialysis, diabetes mellitus type 2, diabetic neuropathy, coronary artery disease with prior PCI, ischemic cardiomyopathy with ejection fraction of 45 to 50% and the echocardiogram that was done on 03/08/2024 showed an EF of around 45 to 50% with global hypokinesis and severe thickness of the LV wall with small pericardial effusion.. She also has anemia of chronic disease and hyperlipidemia. On 08/29/2024, the patient is being seen for a follow-up. The patient is postcardiac arrest and the patient is currently in the intensive care and intubated on the mechanical ventilator. Noted his potassium level was also elevated and the patient was dialyzed yesterday. On today's evaluation, the patient is on propofol for sedation. Calm and comfortable. Synchronous with mechanical ventilator with a rate of 20, tidal volume of 350, FiO2 40% with a PEEP of 5. Blood gas showed a pH of 7.45 with a pCO2 of 47 and pO2 of 147. The patient was taken off norepinephrine at around midnight. He is also off vasopressin. IV fluids are currently at KVO. No urine output. Lactic acid level is dropped down to 1.3. Hemodialysis was done yesterday with a total of 1 L of ultrafiltration. Meanwhile, his white cell count remains elevated at 30 and the patient remains on a combination of Zosyn and vancomycin pending further cultures. BUN is 22 with a creatinine of 3.57. Potassium levels is down to 3.5. Bicarb is at 19. Sodium is at 138. The hemoglobin is stable at 11. Chest x-ray findings from today are essentially stable without any significant abnormalities. ET tube needs to be pushed in by around 2 cm. There is improved aeration in the right lung base along with ongoing cardiomegaly. No seizure activity. Patient was seen today on 08/30/2024, patient remains in the ICU, intubated and mechanically ventilated, he is on assist-control rate of 20 tidal volume 350 FiO2 40% and PEEP of 5 ABG showed a pO2 of 188 pCO2 45 pH of 7.43, patient is on propofol at 30 mcg/kg/min, patient is receiving hemodialysis during my evaluation. Patient is not requiring any pressors at this point, he is tolerating hemodialysis quite well. Looking back at the history of this patient, apparently he coded x 3. Mentation is still poor, the patient may have sustained anoxic brain injury however I plan to assess neurologically after being off sedation/propofol for a few hours. Not quite ready for any weaning trials at this point yet. Chest x-ray showed no evidence of pneumonia, no evidence of pulmonary edema, however his endotracheal tube seems to be sitting high, it will be advanced as [id number] considering the tube is only size 6, I will change the tube today.Patient continues to have leukocytosis with WBC of 23.8 hemoglobin is 9.7, electrolytes are normal BUN is 54 creatinine 7.23 procalcitonin level on admission is over 100. Patient remains empirically on Zosyn as per infectious disease on the case. Vancomycin has been discontinued. Evaluated today on 08/31/2024, remains in the ICU, intubated and mechanically ventilated. Patient is on assist-control rate of 20 tidal volume 350 FiO2 40% and PEEP of 5 ABG showed a pO2 of 181 pCO2 42 pH of 7.47. Remains on propofol at 40 mcg/kg/min remains on Nepro at 10 mL/h/enteral feeding, patient is arousable today, follows simple instructions even on propofol. WBC count is 20.1 hemoglobin is 9.9 basic metabolic profile is normal BUN is 46 creatinine 5.49 chest x-ray showed scattered interstitial prominence possible some component of pulmonary edema. Blood cultures and sputum cultures have been noted to be negative patient was seen by cardiology and he was placed back on Entresto for his cardiomyopathy and LV dysfunction Patient evaluated today on 09/01/2024, remains in the ICU, undergoing hemodialysis today. Patient is doing relatively well, not in any distress is actually on room air, no major cardiac issues overnight. Patient is hemodynamically stable, echocardiogram showed evidence of LV dysfunction with ejection fraction of 35% he was also noted to have moderate pulmonary hypertension. Patient tolerated the extubation well, and does not seem to be in any distress today. He is in sinus rhythm, hemodynamically stable. Patient was seen by cardiology, and his Coreg dose was increased. WBC count is 11 hemoglobin is 9.7 electrolytes are normal BUN is 62 creatinine 7.43 Patient was evaluated today on 09/02/2024, patient is now out of the ICU, he is on the regular medical floor, being followed by many consultants including nephrology and cardiac patient is on room air, does not seem to be in any distress, asymptomatic, patient is in sinus rhythm, hemodynamically stable, and looking back at his echocardiogram showed EF of 35 to 40%. There was evidence of moderate pulmonary hypertension on his previous echocardiogram. Cardiology saw patient today, increase his hydralazine to 100 mg 3 times daily, no immediate plans for any further cardiac evaluation as per the note from the cardiologistWBC count is 5.4 hemoglobin 10.9 electrolytes are normal BUN is 49 creatinine 6.17 Objective - Vital Signs Vital signs: Vital Signs Temp 98.6 F 09/02/24 08:00 Pulse 71 09/02/24 08:00 Resp 16 09/02/24 08:00 BP 168/86 09/02/24 08:00 Pulse Ox 100 09/02/24 11:07 FiO2 40 08/31/24 09:52 Intake & Output 09/01/24 09/02/24 09/02/24 18:59 06:59 18:59 Intake Total 560 0 Output Total 5500 0 Balance -4940 0 0 Weight 80 kg Intake: IV 60 0.9 at KVO 60 Oral 0 Hemodialysis 500 Output: Urine 0 0 Hemodialysis 3000 Hemodialysis Net Amount 2500 Other: # Voids 1 # Bowel Movements 1 ABP, PAP, CO, CI - Last Documented Arterial Blood Pressure 183/69 - Exam General: Revealed 44-year-old -Swiss male on room air, asymptomatic Head: Atraumatic, normocephalic Neck supple no neck masses no JVD no stridor Lungs diminished breath sound bilaterally no crackles rhonchi or wheezes Cardiac distant S1-S2, no S3 gallop, no murmur. Abdominal exam: Soft nontender no megaly no rebound no guarding Extremities: No clubbing edema or cyanosis Skin: No rashes Neurologic: Awake, alert oriented x 3 no gross focal deficit Psychiatric: Normal mood, affect and normal mental status examination - Labs CBC & Chem 7: 09/02/24 08:54 09/02/24 08:09 Labs: Abnormal Lab Results - Last 24 Hours (Table) 09/01/24 09/01/24 09/02/24 Range/Units 16:23 20:03 06:09 RBC (4.30-5.90) m/uL Hgb (13.0-17.5) gm/dL Hct (39.0-53.0) % RDW (11.5-15.5) % Plt Count (150-450) k/uL Sodium (137-145) mmol/L Potassium (3.5-5.1) mmol/L BUN (9-20) mg/dL Creatinine (0.66-1.25) mg/dL Glucose (74-99) mg/dL POC Glucose (mg/dL) 135 H 148 H 160 H (70-110) mg/dL 09/02/24 09/02/24 09/02/24 Range/Units 08:09 08:54 11:36 RBC 3.48 L (4.30-5.90) m/uL Hgb 10.9 L (13.0-17.5) gm/dL Hct 34.0 L (39.0-53.0) % RDW 18.1 H (11.5-15.5) % Plt Count 105 L (150-450) k/uL Sodium 146 H (137-145) mmol/L Potassium 5.3 H (3.5-5.1) mmol/L BUN 49 H (9-20) mg/dL Creatinine 6.17 H (0.66-1.25) mg/dL Glucose 169 H (74-99) mg/dL POC Glucose (mg/dL) 206 H (70-110) mg/dL Assessment and Plan Assessment: Impression Acute cardiopulmonary arrest and the patient had PEA cardiac arrest x 3 Possible anoxic brain injury Acute hypoxic respiratory failure, secondary to above Hyperkalemia with a potassium level of 6.8, improved post hemodialysis potassium level is normalized Acute hypotension, postcardiac arrest. Required pressors, could be cardiogenic or hypovolemic in nature, or could be related to both Acute leukocytosis, rule out reactive, rule out sepsis/infection Acute leukocytosis postcardiac arrest, currently on Zosyn procalcitonin level extremely elevated End stage renal disease maintained on MWF hemodialysis schedule undergoing hemodialysis today. Benign essential hypertension Underlying coronary artery disease and previous PCI History of ischemic cardiomyopathy and LV dysfunction with ejection fraction of 45 to 50% History of chronic diastolic congestive heart failure Type 2 diabetes Chronic anemia GERD without esophagitis History of diabetic peripheral neuropathy Dyslipidemia Recommendation: Continue on monitored bed Continue incentive spirometry Continue hemodialysis Advance diet as tolerated Continue hemodialysis as felt necessary by nephrology on the case Continue GI and DVT prophylaxis patient is on subcu heparin Will continue to follow Time with Patient: Less than 30
--- NOTE | 2024-09-02 14:09 | P.PN ---
Subjective Progress Note Date: 09/01/24 Principal diagnosis: Reason for follow-up is sepsis/pneumonia Patient is a 44-year-old -[place] male with a past medical history significant for hypertension hyperlipidemia [place] coronary artery disease end-stage renal disease on hemodialysis through the right upper extremity AV fistula patient has been brought into the hospital for evaluation of mental status changes did have episode of vomiting at home on arrival to the ER the patient stopped breathing and did have a cardiopulmonary resuscitation was intubated. On today's evaluation that is 09/01/2024, the patient continues to be afebrile, the patient is on room air and breathing comfortably, the Pt denies having any chest pain or significant cough, the patient denies having any abdominal pain no vomiting or any diarrhea. Mention feeling better Patient white count is down to 11,000 creatinine 7.43 Objective - Vital Signs Vital signs: Vital Signs Temp 98.1 F 09/01/24 08:00 Pulse 68 09/01/24 10:00 Resp 19 09/01/24 10:00 BP 142/74 09/01/24 10:00 Pulse Ox 99 09/01/24 10:00 FiO2 40 08/31/24 09:52 Intake & Output 08/31/24 09/01/24 09/01/24 18:59 06:59 18:59 Intake Total 544.927 200 60 Output Total 0 10 0 Balance 544.927 190 60 Weight 80 kg Intake: IV 60 0.9 at KVO 60 Intake, IV Titration 134.927 Amount Piperacillin-Tazobactam 3 100 .375 gm In Sodium Chloride 0.9% 100 ml @ 25 mls/hr IVPB Q12H KATHERINE Rx# :[id number] propofoL 1,000 mg In 34.927 Empty Bag 1 bag @ 10 MCG/ KG/MIN 3.402 mls/hr IV . Q24H KATHERINE Rx#:[id number] Oral 340 200 Tube Feeding 30 Other 40 Output: Urine 0 10 0 Other: Voiding Method Indwelling Catheter Indwelling Catheter # Bowel Movements 1 2 ABP, PAP, CO, CI - Last Documented Arterial Blood Pressure 194/76 - Exam GENERAL DESCRIPTION: Middle-age male lying in bed in no distress RESPIRATORY SYSTEM: Unlabored breathing , decreased breath sounds at bases HEART: S1 S2 regular rate and rhythm , ABDOMEN: Soft , no tenderness EXTREMITIES: No edema feet - Labs CBC & Chem 7: 09/02/24 08:54 09/02/24 08:09 Labs: Abnormal Lab Results - Last 24 Hours (Table) 08/31/24 09/01/24 09/01/24 Range/Units 20:42 06:22 06:22 WBC 11.0 H (3.8-10.6) k/uL RBC 3.08 L (4.30-5.90) m/uL Hgb 9.7 L (13.0-17.5) gm/dL Hct 30.2 L (39.0-53.0) % RDW 18.0 H (11.5-15.5) % Plt Count 73 L (150-450) k/uL Neutrophils # 8.6 H (1.3-7.7) k/uL BUN 62 H (9-20) mg/dL Creatinine 7.43 H* (0.66-1.25) mg/dL Glucose 110 H (74-99) mg/dL POC Glucose (mg/dL) 111 H (70-110) mg/dL Calcium 8.2 L (8.4-10.2) mg/dL Microbiology - Last 24 Hours (Table) 08/28/24 13:03 Blood Culture - Preliminary Blood Assessment and Plan (1) Pneumonia Status: Acute Code(s): J18.9 - PNEUMONIA, UNSPECIFIED ORGANISM SNOMED Code(s): 615476435 (2) Sepsis Status: Acute Code(s): A41.9 - SEPSIS, UNSPECIFIED ORGANISM SNOMED Code(s): 83447089 Plan: 1patient presenting to the hospital with decreased level of responsiveness subsequently the patient did have a cardiac arrest requiring resuscitation did have significant elevated white count hypotension elevated lactic acid meeting currently for SIRS/sepsis with concern for possible aspiration pneumonitis to be the likely etiology 2-patient did have procalcitonin more than 100 sputum culture have been negative and resistant pathogen and blood culture currently pending 3patient did have ultrasound of the liver gallbladder area no abnormality of the gallbladder mild hepatomegaly 4patient with likely component of aspiration pneumonia white count is trending down culture been negative he is on Zosyn will transition to oral antibiotics on discharge Dictation was produced using [employer] +ation software. please excuse any grammatical, word or spelling errors. Time with Patient: Less than 30
--- NOTE | 2024-09-02 14:09 | P.PN ---
Subjective Progress Note Date: 09/02/24 Principal diagnosis: Reason for follow-up is sepsis/pneumonia Patient is a 44-year-old -[place] male with a past medical history significant for hypertension hyperlipidemia MN coronary artery disease end-stage renal disease on hemodialysis through the right upper extremity AV fistula patient has been brought into the hospital for evaluation of mental status changes did have episode of vomiting at home on arrival to the ER the patient stopped breathing and did have a cardiopulmonary resuscitation was intubated. On today's evaluation that is 09/02/2024, Patient is afebrile patient is currently on room air and denies having any shortness of breath, the patient denies any chest pain or cough, the patient denies any nausea vomiting did not have any abdominal pain and no diarrhea. Patient white count normalized to 5.4 creatinine 6.17 blood and sputum culture have been negative Objective - Vital Signs Vital signs: Vital Signs Temp 98.6 F 09/02/24 08:00 Pulse 71 09/02/24 08:00 Resp 16 09/02/24 08:00 BP 168/86 09/02/24 08:00 Pulse Ox 100 09/02/24 11:07 FiO2 40 08/31/24 09:52 Intake & Output 09/01/24 09/02/24 09/02/24 18:59 06:59 18:59 Intake Total 560 0 Output Total 5500 0 Balance -4940 0 0 Weight 80 kg Intake: IV 60 0.9 at KVO 60 Oral 0 Hemodialysis 500 Output: Urine 0 0 Hemodialysis 3000 Hemodialysis Net Amount 2500 Other: # Voids 1 # Bowel Movements 1 ABP, PAP, CO, CI - Last Documented Arterial Blood Pressure 183/69 - Exam GENERAL DESCRIPTION: Middle-age male lying in bed in no distress RESPIRATORY SYSTEM: Unlabored breathing , decreased breath sounds at bases HEART: S1 S2 regular rate and rhythm , ABDOMEN: Soft , no tenderness EXTREMITIES: No edema feet - Labs CBC & Chem 7: 09/02/24 08:54 09/02/24 08:09 Labs: Abnormal Lab Results - Last 24 Hours (Table) 09/01/24 09/01/24 09/02/24 Range/Units 16:23 20:03 06:09 RBC (4.30-5.90) m/uL Hgb (13.0-17.5) gm/dL Hct (39.0-53.0) % RDW (11.5-15.5) % Plt Count (150-450) k/uL Sodium (137-145) mmol/L Potassium (3.5-5.1) mmol/L BUN (9-20) mg/dL Creatinine (0.66-1.25) mg/dL Glucose (74-99) mg/dL POC Glucose (mg/dL) 135 H 148 H 160 H (70-110) mg/dL 09/02/24 09/02/24 09/02/24 Range/Units 08:09 08:54 11:36 RBC 3.48 L (4.30-5.90) m/uL Hgb 10.9 L (13.0-17.5) gm/dL Hct 34.0 L (39.0-53.0) % RDW 18.1 H (11.5-15.5) % Plt Count 105 L (150-450) k/uL Sodium 146 H (137-145) mmol/L Potassium 5.3 H (3.5-5.1) mmol/L BUN 49 H (9-20) mg/dL Creatinine 6.17 H (0.66-1.25) mg/dL Glucose 169 H (74-99) mg/dL POC Glucose (mg/dL) 206 H (70-110) mg/dL Assessment and Plan (1) Pneumonia Status: Acute Code(s): J18.9 - PNEUMONIA, UNSPECIFIED ORGANISM SNOMED Code(s): 946289457 (2) Sepsis Status: Acute Code(s): A41.9 - SEPSIS, UNSPECIFIED ORGANISM SNOMED Code(s): 44258382 Plan: 1patient presenting to the hospital with decreased level of responsiveness subsequently the patient did have a cardiac arrest requiring resuscitation did have significant elevated white count hypotension elevated lactic acid meeting currently for SIRS/sepsis with concern for possible aspiration pneumonitis to be the likely etiology 2-patient did have procalcitonin more than 100 sputum culture have been negative and resistant pathogen and blood culture currently pending 3patient did have ultrasound of the liver gallbladder area no abnormality of the gallbladder mild hepatomegaly 4patient has shown overall clinical improvement patient white count is n ormalized blood and sputum culture have been negative for any resistant pathogen we will consider a week of oral Augmentin on discharge discussed with the admitting team working on discharge Dictation was produced using [employer] software. please excuse any grammatical, word or spelling errors. Time with Patient: Less than 30
--- NOTE | 2024-09-02 14:41 | P.DS ---
Providers Date of admission: 08/28/24 13:18 Expected date of discharge: 09/02/24 Attending physician: Ki Christianson MD Consults: 08/28/24 12:58 Consult Physician Routine Consulting Provider: Rigo Guillen Consult Reason/Comments: sepsis Do you want consulting provider notified?: Yes 08/28/24 12:59 Consult Physician Routine Consulting Provider: Jonn Marcum Consult Reason/Comments: dialysis Do you want consulting provider notified?: Yes 08/28/24 13:18 Consult Physician Stat Consulting Provider: Lauren Garcia Consult Reason/Comments: Critical care management Do you want consulting provider notified?: Yes 08/29/24 08:54 Consult Physician Routine Consulting Provider: Jonathan Ledezma Consult Reason/Comments: Elevated troponin, cardiac arrest Do you want consulting provider notified?: Yes 08/30/24 09:59 Consult Physician Routine Consulting Provider: Du Hopson Consult Reason/Comments: Anoxic brain injury Do you want consulting provider notified?: Yes Primary care physician: [facility] Course: Discharge diagnoses; Septic shock--unknown source Cardiac arrest with pulseless electrical activity Acute metabolic encephalopathy Acute hypoxemic respiratory failure requiring mechanical ventilation Hyponatremia Hyperkalemia Acute transaminitis Thrombocytopenia End-stage renal disease on dialysis Lactic acidosis Hypertension Coronary artery disease with prior PCI. Ischemic cardiomyopathy EF 45-50% Chronic systolic heart failure Diabetes mellitus type 2 Anemia of chronic disease Gastroesophageal reflux disease Diabetic peripheral neuropathy Dyslipidemia Hospital course; patient is a 44-year-old gentleman past medical history significant for end- stage renal disease on dialysis who presented to the ER for altered mental status. History was limited as patient was altered. According to patient was acting confused yesterday after dialysis. There was no complaint of fever or chills. Later in the night noticed the patient was having difficulty in breathing. This morning patient was found to be very confused so was brought to the ER. By the time patient came to the ER patient stopped breathing with loss of pulse,, CPR was initiated, ROSC was achieved but pulse was again lost with further 2 rounds of CPR, patient received epi, sodium bicarb and in the process. Patient was intubated in the process. Initial lab work done in the ER showed WBC 31.6, hemoglobin 11, platelet count 61, D-dimer 9.08, sodium 135, potassium 5, BUN 31, creatinine 7.48, calcium 8.2 troponin 0.072 EKG done in the ER showed heart rate of66 , no ST segment elevation or depression seen, no T-wave inversions seen. Chest x-ray done in the ER showed marked cardiomegaly, acute cardiopulmonary disease involving the right lung CT head done showed no acute intracranial process CTA chest done showed no evidence of pulmonary embolism, small bibasilar infiltrates and effusions seen Patient admitted to internal medicine service in ICU 08/29. Patient seen and examined. Blood work done showed WBC 30.1, hemoglobin 11, platelet count 66, sodium 130, potassium 3.5, BUN 22, creatinine 3.57, calcium 5.4 AST 218, ALT 140 patient is currently off all the pressors. Patient sedation was weaned off and patient was opening his eyes and trying to get up. 08/30/2024 Patient remains in the ICU, intubated and on mechanical ventilation, ICU following, remains on propofol, was receiving hemodialysis today during evaluation. Not on vasopressors. Concern for anoxic brain injury, neurology evaluation after sedation break. Chest x-ray negative for acute process. Labs showed WBCs 23.8, hemoglobin 9.7, BUN 54, creatinine 7.23. Procalcitonin on admission was over 100. Patient on Zosyn per infectious disease, vancomycin has been discontinued. ICU, nephrology, infectious disease and cardiology following. They recommended ultrasound liver and gallbladder. Cardiology recommended to resume beta-jamarcus and clonidine to prevent blood pressure rebound. 08/31/2024 Patient was extubated this morning, alert and oriented x 3. at bedside. Blood pressure on the higher side. Chest x-ray showed some component of pulmonary edema. Blood culture and sputum culture remain negative. Cardiology started Entresto. Ultrasound liver showed hepatomegaly with mild fatty infiltration, small amount of free fluid within the abdomen, small pleural effusion, right renal cyst. Echocardiogram showed moderate pulmonary hypertension, moderately dilated RV, no pericardial effusion. 09/01/2024 Patient was seen and examined today. Patient feeling better today. Alert oriented x 3. On room air. Undergoing hemodialysis. Blood pressure elevated. Echocardiogram showed EF 35%, moderate pulmonary hypertension. WBCs 11.0, hemoglobin 9.7, platelets 73. Creatinine 7.43, potassium 3.9. BUN 62. Nephrology ICU and cardiology following. Cardiology increased Coreg dose due to elevated blood pressure. Planes of loose stool likely secondary to antibiotics. On Zosyn per infectious disease. 09/02. Patient seen and examined. Currently doing much better. Cardiology adjusted patient blood pressure medications. ID recommended discharging patient Augmentin for 5 days PHYSICAL EXAMINATION: GENERAL: The patient is alert and oriented x3, not in any acute distress. Well developed, well nourished. HEENT: Pupils are round and equally reacting to light. EOMI. No scleral icterus. No conjunctival pallor. Normocephalic, atraumatic. No pharyngeal erythema. No thyromegaly. CARDIOVASCULAR: S1 and S2 present. No murmurs, rubs, or gallops. PULMONARY: Chest is clear to auscultation, no wheezing or crackles. ABDOMEN: Soft, nontender, nondistended, normoactive bowel sounds. No palpable organomegaly. MUSCULOSKELETAL: No joint swelling or deformity. EXTREMITIES: No cyanosis, clubbing, or pedal edema. NEUROLOGICAL: Gross neurological examination did not reveal any focal deficits. SKIN: No rashes. Dictation was produced using [employer] dictation software. please excuse any grammatical, word or spelling errors. Patient Condition at Discharge: Fair Plan - Discharge Summary Discharge Rx Participant: Yes New Discharge Prescriptions: New hydrALAZINE HCL [Apresoline] 100 mg PO TID 30 Days #90 tab Amoxic-Pot Clav 500-125 mg [Augmentin 500-125 mg] 1 tab PO Q12HR 5 Days #10 tab Cholestyramine (with Sugar) [Questran Packet] 4 gm PO TID BETWEEN MEALS 7 Days #21 packet Continue cloNIDine 0.3 MG/24HR PATCH [Catapres-TTS] 1 patch TRANSDERM SA Pantoprazole Sodium [Protonix] 20 mg PO DAILY carvediloL [Coreg] 25 mg PO BID Discontinued hydrALAZINE HCL [Apresoline] 50 mg PO TID-W/MEALS No Action Nitroglycerin Sl Tabs [Nitrostat] 0.4 mg SL Q5M PRN PRN Reason: Chest Pain NIFEdipine XL [Procardia XL] 90 mg PO DAILY Sacubitril/Valsartan [Entresto 24 mg-26 mg Tablet] 1 tab PO BID Aspirin 81 mg PO DAILY #30 tab Discharge Medication List Nitroglycerin Sl Tabs [Nitrostat] 0.4 mg SL Q5M PRN 05/09/20 [History] NIFEdipine XL [Procardia XL] 90 mg PO DAILY 03/08/24 [History] Sacubitril/Valsartan [Entresto 24 mg-26 mg Tablet] 1 tab PO BID 06/16/24 [History] Aspirin 81 mg PO DAILY #30 tab 06/17/24 [Rx] Pantoprazole Sodium [Protonix] 20 mg PO DAILY 08/28/24 [History] carvediloL [Coreg] 25 mg PO BID 08/28/24 [History] cloNIDine 0.3 MG/24HR PATCH [Catapres-TTS] 1 patch TRANSDERM SA 08/28/24 [History] Amoxic-Pot Clav 500-125 mg [Augmentin 500-125 mg] 1 tab PO Q12HR 5 Days #10 tab 09/02/24 [Rx] Cholestyramine (with Sugar) [Questran Packet] 4 gm PO TID BETWEEN MEALS 7 Days #21 packet 09/02/24 [Rx] hydrALAZINE HCL [Apresoline] 100 mg PO TID 30 Days #90 tab 09/02/24 [Rx] Follow up Appointment(s)/Referral(s): Jj Galindo MD [Primary Care Provider] - 1-2 days Jonathan Ledezma MD [STAFF PHYSICIAN] - 1 Week
[2024-09-02] MEDS ORDERED: hydrALAZINE HCL 50 MG TAB PO SCH (16:00)
--- NOTE | 2024-09-06 18:23 | CDI ---
Documentation Clarification Form Date: 09/06/2024 05:59:38 PM From: Lydia Fuller Phone: Admit Date: 08/28/2024 01:18:00 PM Patient Name: Reggie Aceves Visit Number: [id number] Discharge Date: 09/02/2024 01:18:00 PM ATTENTION: The Clinical Documentation Specialists (CDI) and [facility] Coding Staff appreciate your assistance in clarifying documentation. Please respond to the clarification below the line at the bottom and electronically sign. The CDI & [facility] Coding staff will review the response and follow-up if needed. Please note: Queries are made part of the Legal Health Record. If you have any questions, please contact the author of this message via ITS. Doctor/Provider: Brianne Rodriguez Your patient has the documented diagnosis: Chronic diastolic heart failure per Consult 08/28, Progress Notes 08/29- 09/02 ChronicsystolicCHF ejection fraction of 45 to 50% Consult Note 08/29, Progress Note 08/30-09/02, DC Summary Additional information regarding the type of CHF is requested. History/Risk Factors: 44yo M, Septic shock, PEA, hypoxic/met enceph, AHRF, hyponatremia, hyperkalemia, transaminitis, thrombocytopenia, ESRD, DMII w ESRD & peripheral neuropathy, lactic acidosis, HTN, CAD, ICM, CHF, anemia, GERD, HLD Clinical Indicators: VS/Pulse OX: 08/28 56 intubated in ER 09/01 100 (post extubation) BNP: [id number] Echo Results: DilatedLV withimpairedLV systolic function and EF between 35 to 40%. LV hypertrophywas seen. Mild to moderateMR. ModeratePHTN. ModeratelydilatedRV. Nopericardial effusion Chest x ray: There is markedcardiomegaly. There isnopleural effusionorpneumothorax. Treatment: Continue current cardiac Rx. Increase hydralazine to 100 mg 3 times a day. Continue to monitor bloodpressure In your professional opinion, can you please clarify the type of CHF if known? [ ] Chronic Systolic Heart Failure (reduced EF) [ ] Chronic Diastolic Heart Failure (preserved EF) [ xx ] Chronic Systolic & Diastolic Heart Failure [ ] Other, please specify [ ] Unable to determine (Template Last Revised: November 2020) MTDD
--- NOTE | 2024-09-06 18:33 | CDI ---
Documentation Clarification Form Date: 09/06/2024 06:24:41 PM From: Lydia Fuller Phone: Admit Date: 08/28/2024 01:18:00 PM Patient Name: Reggie Aceves Visit Number: [id number] Discharge Date: 09/02/2024 01:18:00 PM ATTENTION: The Clinical Documentation Specialists (CDI) and [facility] Coding Staff appreciate your assistance in clarifying documentation. Please respond to the clarification below the line at the bottom and electronically sign. The CDI & [facility] Coding staff will review the response and follow-up if needed. Please note: Queries are made part of the Legal Health Record. If you have any questions, please contact the author of this message via ITS. Doctor/Provider: Ki Christianson Your patient has an abnormal lab value: blood glucose 45-206. Please clarify if there is an additional diagnosis and/or clinical significance related to this value. History/Risk Factors: 44yo M, Septic shock, PEA, hypoxic/met enceph, AHRF, hyponatremia, hyperkalemia, transaminitis, thrombocytopenia, ESRD, DMII w ESRD & peripheral neuropathy, lactic acidosis, HTN, CAD, ICM, CHF, anemia, GERD, HLD Clinical indicators: POCGlucose: 08/28 45-143 08/29 67-72 08/30 107 08/31 69 09/01 110-111 09/02 135-206 Treatment: Insulin sliding scale coverage Is there an additional diagnosis and/or clinical significance related to the above lab result/information? [ ] [CDS to put additional lab result/information diagnosis here] [ ] [CDS to put additional lab result/information diagnosis here] [ x ] No additional diagnosis/Not clinically significant [ ] Other, please specify [ ] Unable to determine (Template Last Revised: November 2020) MTDD
--- NOTE | 2024-09-07 10:19 | CDI ---
Documentation Clarification Form Date: 09/07/2024 10:11:25 AM From: Lydia Fuller Phone: Admit Date: 08/28/2024 01:18:00 PM Patient Name: Reggie Aceves Visit Number: [id number] Discharge Date: 09/02/2024 01:18:00 PM ATTENTION: The Clinical Documentation Specialists (CDI) and [facility] Coding Staff appreciate your assistance in clarifying documentation. Please respond to the clarification below the line at the bottom and electronically sign. The CDI & [facility] Coding staff will review the response and follow-up if needed. Please note: Queries are made part of the Legal Health Record. If you have any questions, please contact the author of this message via ITS. Doctor/Provider: Ki Christianson Your patient has anabnormallab value: blood glucose 45-206. Please clarify if there is an additional diagnosis and/or clinical significance related to this value. History/Risk Factors: 44yo M,Septic shock,PEA,hypoxic/met enceph,AHRF, lactic acidosis,HTN,CAD, ICM,CHF,anemia,GERD,HLD, hyponatremia,hyperkalemia,transaminitis,thrombocytopenia,ESRD,DMIIwESRD peripheral neuropathy, Clinical indicators: POCGlucose: 08/28 45-143 08/29 67-72 08/30 107 08/31 69 09/01 110- 111 09/02 135-206 Treatment: Short acting insulin sliding scale coverage Is/Are there an additional diagnosis(es) and/or clinical significance related to the above results? [ x ] Type 2 diabetes mellitus withhyperglycemia [ ] Type 2 diabetes mellitus withhypoglycemia [ ] No additional diagnosis/Not clinically significant [ ] Other, please specify [ ] Unable to determine (Template LastRevised: November 2020) MTDD
== END 2024-09-02 13:18 | disposition home or self-care (01) | DRG 871 ==
LOC: EC 09:23 → 2SICU 13:18 → 3SCARD 09-01 18:02
PROVIDERS: ADMIT Internal Medicine; ATTEND Internal Medicine
PROC: 3E033XZ Introduction of Vasopressor into Peripheral Vein, Percutaneous Approach (ICD-10-PCS; 2024-08-28)
PROC: 06HY33Z Insertion of Infusion Device into Lower Vein, Percutaneous Approach (ICD-10-PCS; 2024-08-28)
PROC: 3E033XZ Introduction of Vasopressor into Peripheral Vein, Percutaneous Approach (ICD-10-PCS; 2024-08-28)
PROC: 04HY32Z Insertion of Monitoring Device into Lower Artery, Percutaneous Approach (ICD-10-PCS; 2024-08-29)
PROC: 4A133B1 Monitoring of Arterial Pressure, Peripheral, Percutaneous Approach (ICD-10-PCS; 2024-08-29)
PROC: 4A133J1 Monitoring of Arterial Pulse, Peripheral, Percutaneous Approach (ICD-10-PCS; 2024-08-29)
PROC: 5A1D70Z Performance of Urinary Filtration, Intermittent, Less than 6 Hours Per Day (ICD-10-PCS; 2024-08-29)
PROC: 3E0G76Z Introduction of Nutritional Substance into Upper GI, Via Natural or Artificial Opening (ICD-10-PCS; 2024-08-29)
PROC: 5A12012 Performance of Cardiac Output, Single, Manual (ICD-10-PCS; principal; 2024-08-31)
PROC: 0BH18EZ Insertion of Endotracheal Airway into Trachea, Via Natural or Artificial Opening Endoscopic (ICD-10-PCS; 2024-08-31)
PROC: 5A1945Z Respiratory Ventilation, 24-96 Consecutive Hours (ICD-10-PCS; 2024-08-31)
DX: A41.9 Sepsis, unspecified organism (principal); G93.41 Metabolic encephalopathy; R65.21 Severe sepsis with septic shock; J96.01 Acute respiratory failure with hypoxia; I46.9 Cardiac arrest, cause unspecified; N18.6 End stage renal disease; J18.9 Pneumonia, unspecified organism; G93.1 Anoxic brain damage, not elsewhere classified; I13.2 Hypertensive heart and chronic kidney disease with heart failure and with stage 5 chronic kidney disease, or end stage renal disease; E87.1 Hypo-osmolality and hyponatremia; I31.39 Other pericardial effusion (noninflammatory); E87.20 Acidosis, unspecified; I50.42 Chronic combined systolic (congestive) and diastolic (congestive) heart failure; I27.20 Pulmonary hypertension, unspecified; D69.6 Thrombocytopenia, unspecified; Z99.2 Dependence on renal dialysis; E11.65 Type 2 diabetes mellitus with hyperglycemia; E11.319 Type 2 diabetes mellitus with unspecified diabetic retinopathy without macular edema; E11.42 Type 2 diabetes mellitus with diabetic polyneuropathy; E11.22 Type 2 diabetes mellitus with diabetic chronic kidney disease; E87.5 Hyperkalemia; E83.51 Hypocalcemia; R16.0 Hepatomegaly, not elsewhere classified; D63.1 Anemia in chronic kidney disease; I25.5 Ischemic cardiomyopathy; I07.1 Rheumatic tricuspid insufficiency; K76.0 Fatty (change of) liver, not elsewhere classified; I25.10 Atherosclerotic heart disease of native coronary artery without angina pectoris; E78.5 Hyperlipidemia, unspecified; H54.62 Unqualified visual loss, left eye, normal vision right eye; K21.9 Gastro-esophageal reflux disease without esophagitis; M89.8X9 Other specified disorders of bone, unspecified site; N28.1 Cyst of kidney, acquired; H17.89 Other corneal scars and opacities; Z79.82 Long term (current) use of aspirin; Z79.899 Other long term (current) drug therapy; I25.2 Old myocardial infarction; Z95.5 Presence of coronary angioplasty implant and graft
CPT/HCPCS: 36415; 36600; 51702; 70450; 71045; 71275; 76705; 80048; 80053; 80202; 82805; 83605; 83735; 83880; 84132; 84145; 84484; 85025; 85379; 85610; 85730; 86706; 87040; 87070; 87205; 87324; 87340; 90935; 92950; 93005; 93306; 94002; 94003; 94760; 95819; 96374; 96375; 99291

== ENCOUNTER 2024-09-19 20:26 | Observation (INO) | payer MEDICARE ==
--- NOTE | 2024-09-19 20:59 | ED ---
Chest Pain HPI - General Chief Complaint: Chest Pain Stated Complaint: nausea Time Seen by Provider: 09/19/24 20:57 Source: patient, RN notes reviewed, old records reviewed Mode of arrival: ambulatory Limitations: no limitations - History of Present Illness Initial Comments: This is a 44-year-old male to the ER for evaluation patient presents today for evaluation of chest pain. Patient is dialysis patient has dialysis tomorrow. Patient has increasing weakness increasing shortness of breath decreased appetite nausea vomiting has not been feeling well for a few days. Complex recent medical history including recent cardiac arrest MD Complaint: chest pain -: hour(s) Pain Location: substernal, left chest Pain Radiation: LUE Severity: severe Severity scale (1-10): 10 Quality: tightness Consistency: constant Improves With: nothing Worsens With: nothing Context: recent illness Anginal Symptoms: nausea, vomiting, dyspnea, sense of impending doom Other Symptoms: palpitations Treatments Prior to Arrival: none - Related Data Home Medications Medication Instructions Recorded Confirmed Nitroglycerin Sl Tabs [Nitrostat] 0.4 mg SL Q5M PRN 05/09/20 09/20/24 Sacubitril/Valsartan [Entresto 24 1 tab PO BID 06/16/24 09/20/24 mg-26 mg Tablet] Pantoprazole Sodium [Protonix] 20 mg PO DAILY 08/28/24 09/20/24 carvediloL [Coreg] 25 mg PO BID 08/28/24 09/20/24 cloNIDine 0.3 MG/24HR PATCH 1 patch TRANSDERM REDD 08/28/24 09/20/24 [Catapres-TTS] Previous Rx's Medication Instructions Recorded Aspirin 81 mg PO DAILY #30 tab 06/17/24 Cholestyramine (with Sugar) 4 gm PO TID BETWEEN MEALS 7 Days 09/02/24 [Questran Packet] #21 packet hydrALAZINE HCL [Apresoline] 100 mg PO TID 30 Days #90 tab 09/02/24 NIFEdipine XL [Procardia XL] 30 mg PO DAILY #30 tab 09/21/24 NIFEdipine XL [Procardia XL] 90 mg PO HS #30 tab 09/21/24 Allergies Allergy/AdvReac Type Severity Reaction Status Date / Time nickel Allergy Rash/Hives Verified 09/20/24 07:06 Review of Systems ROS Statement: Those systems with pertinent positive or pertinent negative responses have been documented in the HPI. ROS Other: All systems not noted in ROS Statement are negative. EKG Findings - EKG Comments: EKG Findings:: EKG is sinus 88 GA 175 QRS 116 QTc 435 - EKG Results: EKG: interpreted by TAL Past Medical History Past Medical History: Coronary Artery Disease (CAD), Heart Failure, Eye Disorder, GERD/Reflux, Hyperlipidemia, Hypertension, Myocardial Infarction ([place]), Renal Disease, Respiratory Disorder Additional Past Medical History / Comment(s): Pt recently admitted to [facility] on 05/09/20 with acute on chronic CHF/amyloidosis with generalized anasarca/acute on chronic kidney injury/acute anemia/advanced CAD/valvular disease/severe pulmonary htn/abnormal liver test/hyperlipidemia. Other hx: IDDM type II, pt states informed he had kidney disease in Feb, 2020 then ESRD diagnosed 05/09/20 with hemodialysis M/W/F,neuropathy bilateral feet, L foot ulcer with debridements, L eye blindness d/t diabetic retinopathy, ischemic cardiomyopathy, anasarca/lower leg edema. Last Myocardial Infarction Date:: 03/30/2018 History of Any Multi-Drug Resistant Organisms: None Reported Past Surgical History: Heart Catheterization With Stent Additional Past Surgical History / Comment(s): 05/17/20 R subclavian hemodialysis catheter, debridements L foot wound, R eye surgery-pt believes to remove cataract, SEAN fistula Additional Past Anesthesia/Blood Transfusion Reaction / Comment(s): During 3rd debridement L foot ulcer Date of Last Stent Placement:: 03/31/2018 Past Psychological History: No Psychological Hx Reported Smoking Status: Never smoker Past Alcohol Use History: None Reported Past Drug Use History: None Reported - Past Family History Mother Family Medical History: Diabetes Mellitus, Hyperlipidemia, Hypertension Father Family Medical History: Diabetes Mellitus, Hypertension General Exam Limitations: no limitations General appearance: alert, in no apparent distress Head exam: Present: atraumatic, normocephalic, normal inspection Eye exam: Present: normal appearance, PERRL, EOMI. Absent: scleral icterus, conjunctival injection, periorbital swelling ENT exam: Present: normal exam, mucous membranes moist Neck exam: Present: normal inspection. Absent: tenderness, meningismus, lymphadenopathy Respiratory exam: Present: normal lung sounds bilaterally. Absent: respiratory distress, wheezes, rales, rhonchi, stridor Cardiovascular Exam: Present: regular rate, normal rhythm, normal heart sounds. Absent: systolic murmur, diastolic murmur, rubs, gallop, clicks GI/Abdominal exam: Present: soft, normal bowel sounds. Absent: distended, tenderness, guarding, rebound, rigid Extremities exam: Present: normal inspection, full ROM, normal capillary refill. Absent: tenderness, pedal edema, joint swelling, calf tenderness Back exam: Present: normal inspection Neurological exam: Present: alert, oriented X3, CN II-XII intact Psychiatric exam: Present: normal affect, normal mood Skin exam: Present: warm, dry, intact, normal color. Absent: rash Course Vital Signs 09/19/24 09/19/24 09/19/24 20:42 21:46 23:02 Temperature 97.7 F Pulse Rate 89 85 82 Pulse Rate [ Armor Senior Sergeant ] Respiratory 18 18 18 Rate Blood Pressure 218/97 209/108 205/110 Blood Pressure [Left Arm] O2 Sat by Pulse 100 99 100 Oximetry 09/19/24 09/20/24 09/20/24 23:50 00:00 01:00 Temperature Pulse Rate 81 80 82 Pulse Rate [ Armor Senior Sergeant ] Respiratory 20 18 20 Rate Blood Pressure 221/117 210/109 172/107 Blood Pressure [Left Arm] O2 Sat by Pulse 99 99 98 Oximetry 09/20/24 09/20/24 09/20/24 02:08 03:04 04:38 Temperature Pulse Rate 81 78 77 Pulse Rate [ Armor Senior Sergeant ] Respiratory 19 16 22 Rate Blood Pressure 165/94 168/91 157/87 Blood Pressure [Left Arm] O2 Sat by Pulse 97 96 98 Oximetry 09/20/24 09/20/24 09/20/24 06:07 06:55 07:06 Temperature Pulse Rate 75 76 76 Pulse Rate [ Armor Senior Sergeant ] Respiratory 18 16 16 Rate Blood Pressure 175/101 145/84 162/94 Blood Pressure [Left Arm] O2 Sat by Pulse 98 98 Oximetry 09/20/24 09/20/24 09/20/24 07:47 08:38 09:21 Temperature Pulse Rate 75 73 73 Pulse Rate [ Armor Senior Sergeant ] Respiratory 16 16 16 Rate Blood Pressure 182/99 179/98 196/109 Blood Pressure [Left Arm] O2 Sat by Pulse 99 99 99 Oximetry 09/20/24 09/20/24 09/20/24 10:08 11:18 16:03 Temperature 98.5 F Pulse Rate 74 72 Pulse Rate [ 81 Armor Senior Sergeant ] Respiratory 14 16 18 Rate Blood Pressure 180/103 201/115 Blood Pressure 210/113 [Left Arm] O2 Sat by Pulse 98 98 Oximetry 09/20/24 09/20/24 09/20/24 16:23 16:31 17:29 Temperature Pulse Rate 81 81 Pulse Rate [ Armor Senior Sergeant ] Respiratory 18 16 16 Rate Blood Pressure 205/109 205/009 Blood Pressure 221/107 [Left Arm] O2 Sat by Pulse 100 98 98 Oximetry - Reevaluation(s) Reevaluation #1: 09/19/24 23:14 Medical records reviewed Reevaluation #2: 09/19/24 23:15 Patient symptoms unchanged Reevaluation #3: 09/19/24 23:15 Patient informed of results questions answered Reevaluation #4: Was pt. sent in by a medical professional or institution (, PA, ALTERNATIVE ENERGY TECHNICIAN, urgent care, hospital, or halfway...) When possible be specific @ -no Did you speak to anyone other than the patient for history (EMS, parent, family, police, friend...)? What history was obtained from this source @ -no Did you review nursing and triage notes (agree or disagree)? Why? @ -agree Are old charts reviewed (outside hosp., previous admission, EMS record, old EKG, old radiological studies, urgent care reports/EKG's, halfway records)? Report findings @ -yes Differential Diagnosis (chest pain, altered mental status, abdominal pain women, abdominal pain men, vaginal bleeding, weakness, fever, dyspnea, syncope, headache, dizziness, GI bleed, back pain, seizure, CVA, palpatations, mental health, musculoskeletal)? @ -prior EKG interpreted by me (3pts min.). @ -yes X-rays interpreted by me (1pt min.). @ -yes negative for acute disease CT interpreted by me (1pt min.). @ -no U/S interpreted by me (1pt. min.). @ -no What testing was considered but not performed or refused? (CT, X-rays, U/S, labs)? Why? @ -none What meds were considered but not given or refused? Why? @ -none Did you discuss the management of the patient with other professionals (professionals i.e. , PA, ALTERNATIVE ENERGY TECHNICIAN, lab, RT, psych nurse, social media content specialist, content engineer, teacher, security flex utility officer, case supervisor)? Give summary @ -no Was smoking cessation discussed for >3mins.? @ -no Was critical care preformed (if so, how long)? @ -yes31 Were there social determinants of health that impacted care today? How? (Homelessness, low income, unemployed, alcoholism, drug addiction, transportation, low edu. Level, literacy, decrease access to med. care, [place] [facility], rehab)? @ -none Was there de-escalation of care discussed even if they declined (Discuss DNR or withdrawal of care, Hospice)? DNR status @ -no What co-morbidities impacted this encounter? (DM, HTN, Smoking, COPD, CAD, Cancer, CVA, ARF, Chemo, Hep., AIDS, mental health diagnosis, sleep apnea, morbid obesity)? @ -none Was patient admitted / discharged? Hospital course, mention meds given and route, prescriptions, significant lab abnormalities, going to OR and other pertinent info. @ - 44 male with recent complex medical history including cardiac arrest coming in for chest pain on dialysis with dialysis scheduled for the morning. Patient will admit for heart failure chest pain chest pain observation Admitted Undiagnosed new problem with uncertain prognosis? @ -no Drug Therapy requiring intensive monitoring for toxicity (Heparin, Nitro, Insulin, Cardizem)? @ -no Were any procedures done? @ -no Diagnosis/symptom? @ -Chest pain Acute, or Chronic, or Acute on Chronic? @ -Acute Uncomplicated (without systemic symptoms) or Complicated (systemic symptoms)? @ -Complicated Side effects of treatment? @ -no Exacerbation, Progression, or Severe Exacerbation? @ -exacerbation Poses a threat to life or bodily function? How? (Chest pain, [place], [place], pneumonia, PE, COPD, DKA, ARF, appy, cholecystitis, CVA, Diverticulitis, Homicidal, Suicidal, threat to staff... and all critical care pts) @ -yes significant chest pain and heart history Reevaluation #5: 09/19/24 23:15 Differential Chest Pain: Stable Angina, Unstable Angina, STEMI, NSTEMI Aortic Dissection, Pneumothorax, Musculoskeletal, Esophageal Spasm GERD, Cholecystitis, Pancreatitis, Zoster, this is not meant to be an all-inclusive list. - Consultations Consultation #1: Spoke with [facility] who agrees to admit this patient Chest Pain MDM - MDM 44 male with recent complex medical history including cardiac arrest coming in for chest pain on dialysis with dialysis scheduled for the morning. Patient will admit for heart failure chest pain chest pain observation Critical Care Time Critical Care Time: Yes Total Critical Care Time: 31 Disposition Clinical Impression: Unstable angina pectoris, Acute non-ST elevation myocardial infarction (NSTEMI), CHF (congestive heart failure), Chest pain, Vomiting, Chronic renal failure, Hypertension Disposition: ADMITTED IP TO THIS HOSP Condition: Stable Is patient prescribed a controlled substance at d/c from ED?: No Time of Disposition: 23:00
[2024-09-19] MEDS: SODIUM CHLORIDE 0.9% 1,000 ML IV STA (21:42)
--- NOTE | 2024-09-19 21:45 | XR ---
EXAMINATION TYPE: XR chest 2V DATE OF EXAM: 09/19/2024 9:40 PM COMPARISON: Previous chest radiograph 08/31/2024. CLINICAL INDICATION: Male, 44 years old with history of Chest Pain; [facility] TECHNIQUE: XR chest 2V Frontal and lateral views of the chest. FINDINGS: Cardiomegaly and pulmonary vascular congestive changes bilaterally. No sizable pleural effusion. No pneumothorax. No acute osseous adenopathy. Surgical clips overlying the right axilla. IMPRESSION: Cardiomegaly and pulmonary vascular congestive changes. [facility], , 09/19/2024 9:42 PM
[2024-09-19] MEDS: MORPHINE SULFATE 4 MG/ML SYRINGE IVP STA (21:47)
[2024-09-19 21:48] LABS: Anisocytosis Slight; Basophils % (A) 0 %; Eosinophils % (A) 0 %; HCT 34.2 % (39.0-53.0); HGB 10.9 gm/dL (13.0-17.5); Hypochromasia Slight; Lymphocytes # (A) 0.6 k/uL (1.0-4.8); Lymphocytes % (A) 8 %; MCH 31.5 pg (25.0-35.0); MCHC 31.9 g/dL (31.0-37.0); MCV 98.7 fL (80.0-100.0); Macrocytosis Slight; Mean Platelet Volume 9.2; Monocytes # (A) 0.4 k/uL (0-1.0); Monocytes % (A) 6 %; Neutrophils # (A) 6.4 k/uL (1.3-7.7); Neutrophils % (A) 84 %; RBC 3.46 m/uL (4.30-5.90); RDW 18.3 % (11.5-15.5); WBC 7.6 k/uL (3.8-10.6)
[2024-09-19] MEDS: MAG HYDROX/AL HYDROX/SIMETH 30 ML, HYOSCYAMINE ELIXIR 10 ML PO STA (21:48)
[2024-09-19] MEDS: ONDANSETRON 4 MG/2 ML VIAL IVP STA (21:49)
[2024-09-19] MEDS: PANTOPRAZOLE 40 MG/10 ML VIAL IVP STA (21:50)
[2024-09-19 21:59] LABS: INR 1.2 (<1.2); Partial Thromboplastin Time 27.3 sec (22.0-30.0); Prothrombin Time 12.9 sec (10.0-12.5)
[2024-09-19 22:04] LABS: ALT 20 U/L (4-49); AST 27 U/L (17-59); African American GFR (CKD) 7 (>60 ml/min/1.73 sqM); Albumin 4.5 g/dL (3.5-5.0); Alkaline Phosphatase 143 U/L (38-126); Anion Gap 16 mmol/L; Blood Urea Nitrogen 45 mg/dL (9-20); Calcium 9.7 mg/dL (8.4-10.2); Carbon Dioxide 21 mmol/L (22-30); Chloride 103 mmol/L (98-107); Glucose 131 mg/dL (74-99); Lipase 66 U/L (23-300); Magnesium 2.3 mg/dL (1.6-2.3); Non-African American GFR(CKD) 6 (>60 ml/min/1.73 sqM); Potassium 5.5 mmol/L (3.5-5.1); Sodium 140 mmol/L (137-145); Total Bilirubin 1.3 mg/dL (0.2-1.3); Total Protein 8.6 g/dL (6.3-8.2)
[2024-09-19 22:06] LABS: Platelet Count 171 k/uL (150-450)
[2024-09-19 22:32] LABS: NT-Pro-B-Type Natriuretic Pept 152000 pg/mL
[2024-09-19] MEDS: cloNIDine 0.3 MG/24HR PATCH TRANSDERM STA (23:42)
[2024-09-19] MEDS: NITROGLYCERIN OINT 1 INCH/GM PACKET TOPICAL SCH (23:48)
[2024-09-20] MEDS: SODIUM CHLORIDE 0.9% 1,000 ML IV SCH (01:34)
[2024-09-20] MEDS: LABETALOL 5 MG/ML VIAL MDV IVP STA (01:39)
[2024-09-20] MEDS: ASPIRIN 325 MG TAB PO STA (01:42)
[2024-09-20] MEDS: hydrALAZINE HCL 20 MG/ML 1 ML VIAL IVP STA (02:43)
[2024-09-20] MEDS: HYDROcodone/APAP 5-325MG 1 EACH TAB PO STA (04:10)
[2024-09-20] MEDS: SACUBITRIL/VALSARTAN 24 MG-26 MG TABLET PO SCH (04:20)
[2024-09-20] MEDS: carvediloL 12.5 MG TAB PO SCH (04:20)
[2024-09-20] MEDS: ONDANSETRON 4 MG/2 ML VIAL IVP PRN (07:50)
[2024-09-20] MEDS: PANTOPRAZOLE 40 MG TABLET PO SCH (08:12)
[2024-09-20] MEDS ORDERED: SACUBITRIL/VALSARTAN 24 MG-26 MG TABLET PO SCH (09:00)
[2024-09-20] MEDS ORDERED: ASPIRIN 325 MG TAB PO SCH (09:00)
[2024-09-20] MEDS: ASPIRIN 81 MG PO SCH (09:22)
[2024-09-20] MEDS: hydrALAZINE HCL 50 MG TAB PO SCH (09:22)
--- NOTE | 2024-09-20 10:44 | P.NPCON ---
History of Present Illness - Reason for Consult end stage renal disease - History of Present Illness Reason for consultation: End-stage renal disease History of present illness: Patient is a 44-year-old male seen in renal consultation for end-stage renal disease. Patient was seen and examined in the emergency room. He is maintained on hemodialysis on Friday schedule. Patient came to the hospital due to nausea and vomiting which began yesterday morning. Patient states the symptoms were persistent and he also developed chest pain for which he came to the hospital. He denies radiation of pain to arm or jaw. He denies shortness of breath. He denies missing any dialysis sessions. No fever or chills. Blood pressures have been high. Home medications have been resumed. Patient was recently admitted with a cardiac arrest. He is currently on Entresto and has been seen by cardiology. Patient has longstanding history of diabetes. Also has history of coronary disease with cardiac stents. Patient says chest pain is mostly resolved now. Vital signs are stable. General: No acute distress. HEENT: Head exam is unremarkable. LUNGS: No audible rhonchi or wheezes. HEART: Rate and Rhythm are regular. ABDOMEN: Nontender. EXTREMITITES: No edema. Past Medical History Past Medical History: Coronary Artery Disease (CAD), Heart Failure, Eye Disorder, GERD/Reflux, Hyperlipidemia, Hypertension, Myocardial Infarction ([place]), Renal Disease, Respiratory Disorder Additional Past Medical History / Comment(s): Pt recently admitted to [facility] on 05/09/20 with acute on chronic CHF/amyloidosis with generalized anasarca/acute on chronic kidney injury/acute anemia/advanced CAD/valvular disease/severe pulmonary htn/abnormal liver test/hyperlipidemia. Other hx: IDDM type II, pt states informed he had kidney disease in Feb, 2020 then ESRD diagnosed 05/09/20 with hemodialysis M/W/F,neuropathy bilateral feet, L foot ulcer with debridements, L eye blindness d/t diabetic retinopathy, ischemic cardiomyopathy, anasarca/lower leg edema. Last Myocardial Infarction Date:: 03/30/2018 History of Any Multi-Drug Resistant Organisms: None Reported Past Surgical History: Heart Catheterization With Stent Additional Past Surgical History / Comment(s): 05/17/20 R subclavian hemodialysis catheter, debridements L foot wound, R eye surgery-pt believes to remove cataract, SEAN fistula Additional Past Anesthesia/Blood Transfusion Reaction / Comment(s): During 3rd debridement L foot ulcer Date of Last Stent Placement:: 03/31/2018 Past Psychological History: No Psychological Hx Reported Smoking Status: Never smoker Past Alcohol Use History: None Reported Past Drug Use History: None Reported - Past Family History Mother Family Medical History: Diabetes Mellitus, Hyperlipidemia, Hypertension Father Family Medical History: Diabetes Mellitus, Hypertension Medications and Allergies Home Medications Medication Instructions Recorded Confirmed Type Nitroglycerin Sl Tabs [Nitrostat] 0.4 mg SL Q5M PRN 05/09/20 09/20/24 History Sacubitril/Valsartan [Entresto 24 1 tab PO BID 06/16/24 09/20/24 History mg-26 mg Tablet] Aspirin 81 mg PO DAILY #30 tab 06/17/24 09/20/24 Rx Pantoprazole Sodium [Protonix] 20 mg PO DAILY 08/28/24 09/20/24 History carvediloL [Coreg] 25 mg PO BID 08/28/24 09/20/24 History cloNIDine 0.3 MG/24HR PATCH 1 patch TRANSDERM REDD 08/28/24 09/20/24 History [Catapres-TTS] Cholestyramine (with Sugar) 4 gm PO TID BETWEEN MEALS 7 Days 09/02/24 09/20/24 Rx [Questran Packet] #21 packet hydrALAZINE HCL [Apresoline] 100 mg PO TID 30 Days #90 tab 09/02/24 09/20/24 Rx Allergies Allergy/AdvReac Type Severity Reaction Status Date / Time nickel Allergy Rash/Hives Verified 09/20/24 07:06 Physical Exam Vitals: Vital Signs Temp Pulse Resp BP Pulse Ox 09/20/24 10:08 74 14 180/103 98 09/20/24 09:21 73 16 196/109 99 09/20/24 08:38 73 16 179/98 99 09/20/24 07:47 75 16 182/99 99 09/20/24 07:06 76 16 162/94 09/20/24 06:55 76 16 145/84 98 09/20/24 06:07 75 18 175/101 98 09/20/24 04:38 77 22 157/87 98 09/20/24 03:04 78 16 168/91 96 09/20/24 02:08 81 19 165/94 97 09/20/24 01:00 82 20 172/107 98 09/20/24 00:00 80 18 210/109 99 09/19/24 23:50 81 20 221/117 99 09/19/24 23:02 82 18 205/110 100 09/19/24 21:46 85 18 209/108 99 09/19/24 20:42 97.7 F 89 18 218/97 100 Intake and Output 09/19/24 09/20/24 09/20/24 22:59 06:59 14:59 Other: Weight 79.379 kg Results - Lab Results Most recent lab results Calcium 9.7 mg/dL (8.4-10.2) 09/19/24 21:29 Magnesium 2.3 mg/dL (1.6-2.3) 09/19/24 21:29 09/19/24 21:29 09/19/24 21:29 Assessment and Plan Plan: Assessment: 1. End-stage renal disease maintained on hemodialysis on Friday schedule. 2. Nausea and vomiting. Possibly due to underlying gastroparesis. Seen by cardiology. 3. Hypertension with chronic kidney disease. Exacerbated by vomiting. 4. Hyperkalemia secondary to chronic kidney disease and Entresto. 5. Recent cardiac arrest. 6. Diabetes mellitus. Plan: Hemodialysis today. Check phosphorus level. Home antihypertensives resumed. Thank you for the consultation. I will continue to follow the patient with you during his hospital stay.
--- NOTE | 2024-09-20 12:18 | P.CRDCN ---
History of Present Illness Consult date: 09/20/24 Consult reason: chest pain History of present illness: This is a 44-year-old male patient of Dr. Martines with past medical history of end-stage renal disease, hypertension, recently hospitalized for hypertensive crisis and was hospitalized 1 month ago and had apneic and cardiac arrest while in the emergency center with PEA rhythm. He underwent CPR on 3 occasions and was intubated. He did not require vasopressors. Patient presents now to the hospital due to nausea and vomiting. He is normally on dialysis Friday. He has had increasing weakness and shortness of breath with decreased appetite along with nausea and vomiting. He denies having any chest pain at this time. He presented with blood pressure of 209/108. Currently, blood pressure is 180/104, heart rate 75, pulse ox 98% on room air. During patient's last office visit with Dr. Martines, Dr. Martines had spoken with his [place] [facility] physician, Dr. Mohr and wanted patient to be scheduled for angiogram soon. Discussed with with the patient that this would not be done during this hospitalization and nausea and vomiting need to be resolved. This would be worked up as an outpatient with Dr. Martines making arrangements. -EKG: Sinus rhythm -Chest x-ray: Cardiomegaly, pulmonary vascular congestion -Laboratory studies: WBC 7.6, hemoglobin 10.9. BUN 45 creatinine 9.8, sodium 140, potassium 5.5. Troponin 0.0530.069 and 0.1. Acetone negative. proBNP 152,000. -Home cardiac medications: Aspirin 81 mg daily, Coreg 25 mg twice daily, clon idine 0.3 mg/h patch on Sundays, hydralazine 100 mg 3 times daily, Entresto 24- 26 mg twice daily. -Echocardiogram performed 08/30/2024 reveals dilated LV with impaired LV systolic function, EF 35 to 40%, left ventricular hypertrophy. Mild to moderate mitral regurgitation, moderate pulmonary hypertension, moderately dilated RV, no pericardial effusion. -Lexiscan Cardiolite stress test performed in the office in 08/10/2020 revealed negative Lexiscan stress test. Abnormal study with fixed defect in the inferior basal segment suggestive of possible previous SD though soft tissue attenuation cannot be excluded. EF about 40%, no reversible ischemia. Review Of Systems: At the time of my exam: CONSTITUTIONAL: Denies fever or chills. HEENT: Denies blurred vision, vision changes, or eye pain. Denies hemoptysis CARDIOVASCULAR: Denies chest pain. Denies orthopnea. Denies PND. Denies palpitations RESPIRATORY: Denies shortness of breath. GASTROINTESTINAL: Denies abdominal pain. Reports nausea or vomiting. HEMATOLOGIC: Denies bleeding disorders. GENITOURINARY: Denies any blood in urine. SKIN: Denies puritis. Denies rash. Physical examination: Gen: This is a 44-year-old black male currently retching. VS: reviewed HEENT: Head is atraumatic, normocephalic. Pupils equal, round. Sclerae is anicteric. NECK: Supple. No JVD. LUNGS: Clear to auscultation. No wheezes or rhonchi. No intercostal retractions. HEART: Regular rate and rhythm. No murmur. ABDOMEN: Soft No tenderness. EXTREMITIES: No pedal edema. No calf tenderness. NEUROLOGICAL: Patient is awake, alert and oriented x3. Assessment: Elevated troponin secondary to chronic kidney disease Hypertensive emergency End-stage renal disease on hemodialysis Friday History of cardiac arrest on previous hospitalization Dilated cardiomyopathy with EF of 45% Chronic systolic heart failure Plan: Resume patient's home cardiac medications No need to repeat echocardiogram as this was done on 08/30 Further recommendations to follow based upon clinical course Thank you kindly for this consultation. Nurse practitioner note has been reviewed, I agree with documented findings and plan of care. Patient was seen and examined. Past Medical History Past Medical History: Coronary Artery Disease (CAD), Heart Failure, Eye Disorder, GERD/Reflux, Hyperlipidemia, Hypertension, Myocardial Infarction (SD), Renal Disease, Respiratory Disorder Additional Past Medical History / Comment(s): Pt recently admitted to [facility] on 05/09/20 with acute on chronic CHF/amyloidosis with generalized anasarca/acute on chronic kidney injury/acute anemia/advanced CAD/valvular disease/severe pulmonary htn/abnormal liver test/hyperlipidemia. Other hx: IDDM type II, pt states informed he had kidney disease in Feb, 2020 then ESRD diagnosed 05/09/20 with hemodialysis M/W/F,neuropathy bilateral feet, L foot ulcer with debridements, L eye blindness d/t diabetic retinopathy, ischemic cardiomyopathy, anasarca/lower leg edema. Last Myocardial Infarction Date:: 03/30/2018 History of Any Multi-Drug Resistant Organisms: None Reported Past Surgical History: Heart Catheterization With Stent Additional Past Surgical History / Comment(s): 05/17/20 R subclavian hemodialysis catheter, debridements L foot wound, R eye surgery-pt believes to remove cataract, SEAN fistula Additional Past Anesthesia/Blood Transfusion Reaction / Comment(s): During 3rd debridement L foot ulcer Date of Last Stent Placement:: 03/31/2018 Past Psychological History: No Psychological Hx Reported Smoking Status: Never smoker Past Alcohol Use History: None Reported Past Drug Use History: None Reported - Past Family History Mother Family Medical History: Diabetes Mellitus, Hyperlipidemia, Hypertension Father Family Medical History: Diabetes Mellitus, Hypertension Medications and Allergies Home Medications Medication Instructions Recorded Confirmed Type Nitroglycerin Sl Tabs [Nitrostat] 0.4 mg SL Q5M PRN 05/09/20 09/20/24 History Sacubitril/Valsartan [Entresto 24 1 tab PO BID 06/16/24 09/20/24 History mg-26 mg Tablet] Aspirin 81 mg PO DAILY #30 tab 06/17/24 09/20/24 Rx Pantoprazole Sodium [Protonix] 20 mg PO DAILY 08/28/24 09/20/24 History carvediloL [Coreg] 25 mg PO BID 08/28/24 09/20/24 History cloNIDine 0.3 MG/24HR PATCH 1 patch TRANSDERM REDD 08/28/24 09/20/24 History [Catapres-TTS] Cholestyramine (with Sugar) 4 gm PO TID BETWEEN MEALS 7 Days 09/02/24 09/20/24 Rx [Questran Packet] #21 packet hydrALAZINE HCL [Apresoline] 100 mg PO TID 30 Days #90 tab 09/02/24 09/20/24 Rx Allergies Allergy/AdvReac Type Severity Reaction Status Date / Time nickel Allergy Rash/Hives Verified 09/20/24 07:06 Physical Exam Vitals: Vital Signs Temp Pulse Resp BP Pulse Ox 09/20/24 07:06 76 16 162/94 09/20/24 06:55 76 16 145/84 98 09/20/24 06:07 75 18 175/101 98 09/20/24 04:38 77 22 157/87 98 09/20/24 03:04 78 16 168/91 96 12/02/24 02:08 81 19 165/94 97 09/20/24 01:00 82 20 172/107 98 09/20/24 00:00 80 18 210/109 99 09/19/24 23:50 81 20 221/117 99 09/19/24 23:02 82 18 205/110 100 09/19/24 21:46 85 18 209/108 99 09/19/24 20:42 97.7 F 89 18 218/97 100 Intake and Output 09/19/24 09/20/24 09/20/24 22:59 06:59 14:59 Other: Weight 79.379 kg Results 09/19/24 21:29 09/19/24 21:29 Cardiac Enzymes 09/19/24 09/19/24 09/20/24 Range/Units 21:29 21:29 00:35 AST 27 (17-59) U/L Troponin I 0.053 H* 0.069 H* (0.000-0.034) ng/mL 09/20/24 Range/Units 04:41 AST (17-59) U/L Troponin I 0.100 H* (0.000-0.034) ng/mL Coagulation 09/19/24 Range/Units 21:29 PT 12.9 H (10.0-12.5) sec APTT 27.3 (22.0-30.0) sec CBC 09/19/24 Range/Units 21:29 WBC 7.6 (3.8-10.6) k/uL RBC 3.46 L (4.30-5.90) m/uL Hgb 10.9 L (13.0-17.5) gm/dL Hct 34.2 L (39.0-53.0) % Plt Count 171 D (150-450) k/uL Comprehensive Metabolic Panel 09/19/24 Range/Units 21:29 Sodium 140 (137-145) mmol/L Potassium 5.5 H (3.5-5.1) mmol/L Chloride 103 (98-107) mmol/L Carbon Dioxide 21 L (22-30) mmol/L BUN 45 H (9-20) mg/dL Creatinine 9.30 H* (0.66-1.25) mg/dL Glucose 131 H (74-99) mg/dL Calcium 9.7 (8.4-10.2) mg/dL AST 27 (17-59) U/L ALT 20 (4-49) U/L Alkaline Phosphatase 143 H (38-126) U/L Total Protein 8.6 H (6.3-8.2) g/dL Albumin 4.5 (3.5-5.0) g/dL Current Medications Generic Name Dose Route Start Last Admin Trade Name Freq PRN Reason Stop Dose Admin Acetaminophen 650 mg 09/20/24 04:06 Acetaminophen Tab 325 Mg Tab PO Q6HR PRN Fever and/ or Pain Aspirin 81 mg 09/20/24 09:00 Aspirin 81 Mg PO DAILY [facility] Carvedilol 25 mg 09/20/24 02:58 09/20/24 04:20 Carvedilol 12.5 Mg Tab PO Not Given BID-W/MEALS [facility] Hydralazine HCl 10 mg 09/19/24 23:02 Hydralazine Hcl 20 Mg/Ml 1 Ml Vial IVP Q4HR PRN Blood Pressure - High Hydralazine HCl 100 mg 09/20/24 09:00 Hydralazine Hcl 50 Mg Tab PO TID KATHERINE Nitroglycerin 1 inch 09/20/24 00:00 09/20/24 05:25 Nitroglycerin Oint 1 Inch/Gm Packet TOPICAL 09/21/24 00:00 1 inch Q6HR KATHERINE Administration Ondansetron HCl 4 mg 09/20/24 04:07 Ondansetron 4 Mg/2 Ml Vial IVP Q6HR PRN Nausea And Vomiting Pantoprazole Sodium 40 mg 09/20/24 07:30 Pantoprazole 40 Mg Tablet PO AC-FISHKFST [facility] Sacubitril/Valsartan 1 each 09/20/24 02:58 09/20/24 04:20 Sacubitril/Valsartan 24 Mg-26 Mg Tablet PO Not Given BID [facility] Intake and Output 09/19/24 09/20/24 09/20/24 22:59 06:59 14:59 Other: Weight 79.379 kg 09/19/24 21:29 09/19/24 21:29
--- NOTE | 2024-09-20 12:52 | P.HPIM ---
History of Present Illness 44-year-old male came in with complaints of nausea vomiting followed by epigastric and precordial chest pain patient believes it is heartburn and acid reflux which usually resolves in this time he did not because of which patient came to the hospital patient blood pressure is significantly higher with systolics going about 200 patient's troponin is slightly elevated although patient has chronic kidney disease. Patient had any fever chills patient chest pain is nonradiating associate with spicy food no associated diaphoresis shor tness of breath. Patient is end-stage renal disease with serum potassium of 5.5 he is undergoing hemodialysis today chest x-ray showing cardiomegaly and pulmonary vascular congestion patient is not urinating at this time patient is also on Entresto, beta-jamarcus there is Coreg 25 twice a day hydralazine 50 3 times daily which was increased to 100 3 times daily by cardiology. Patient has known congestive heart failure with EF of around 40% appears to be nonischemic cardiomyopathy. Patient is mild heart failure exacerbation at this time REVIEW OF SYSTEMS: All other systems are negative except those mentioned in the HPI PHYSICAL EXAMINATION: GENERAL: The patient is alert and oriented x3, not in any acute distress. Well developed, well nourished. HEENT: Pupils are round and equally reacting to light. EOMI. No scleral icterus. No conjunctival pallor. Normocephalic, atraumatic. No pharyngeal erythema. No thyromegaly. CARDIOVASCULAR: S1 and S2 present. No murmurs, rubs, or gallops. PULMONARY: Chest is clear to auscultation, no wheezing or crackles. ABDOMEN: Soft, nontender, nondistended, normoactive bowel sounds. No palpable organomegaly. MUSCULOSKELETAL: No joint swelling or deformity. EXTREMITIES: No cyanosis, clubbing, or pedal edema. NEUROLOGICAL: Gross neurological examination did not reveal any focal deficits. SKIN: No rashes. Assessment and plan -Chest pain appears to be mostly gastroesophageal reflux disease than cardiac chest pain patient Protonix will be changed to 40 IV twice a day. Cardiology evaluated the patient as well troponin elevation secondary to chronic kidney disease -Troponin elevation secondary to chronic kidney disease. -Hyperkalemia secondary to chronic kidney disease end-stage renal disease and Entresto patient is undergoing hemodialysis -Congestive heart failure chronic systolic function EF of around 40% dilated cardiomyopathy: Patient is undergoing hemodialysis with removal of 2 L may require hemodialysis tomorrow again although patient is clinically not short of breath -End-stage renal disease hemodialysis dependent -Recent history of cardiac arrest -Hypertensive urgency: Patient will be resumed on home medications hydralazine dose was increased will monitor her overnight -Hyperlipidemia -Gastroesophageal reflux disease DVT prophylaxis: Subcutaneous heparin Past Medical History Past Medical History: Coronary Artery Disease (CAD), Heart Failure, Eye Disorder, GERD/Reflux, Hyperlipidemia, Hypertension, Myocardial Infarction ([place]), Renal Disease, Respiratory Disorder Additional Past Medical History / Comment(s): Pt recently admitted to [facility] on 05/09/20 with acute on chronic CHF/amyloidosis with generalized anasarca/acute on chronic kidney injury/acute anemia/advanced CAD/valvular disease/severe pulmonary htn/abnormal liver test/hyperlipidemia. Other hx: IDDM type II, pt states informed he had kidney disease in Feb, 2020 then ESRD diagnosed 05/09/20 with hemodialysis M/W/F,neuropathy bilateral feet, L foot ulcer with debridem ents, L eye blindness d/t diabetic retinopathy, ischemic cardiomyopathy, anasarca/lower leg edema. Last Myocardial Infarction Date:: 03/30/2018 History of Any Multi-Drug Resistant Organisms: None Reported Past Surgical History: Heart Catheterization With Stent Additional Past Surgical History / Comment(s): 05/17/20 R subclavian hemodialysis catheter, debridements L foot wound, R eye surgery-pt believes to remove cataract, SEAN fistula Additional Past Anesthesia/Blood Transfusion Reaction / Comment(s): During 3rd debridement L foot ulcer Date of Last Stent Placement:: 03/31/2018 Past Psychological History: No Psychological Hx Reported Smoking Status: Never smoker Past Alcohol Use History: None Reported Past Drug Use History: None Reported - Past Family History Mother Family Medical History: Diabetes Mellitus, Hyperlipidemia, Hypertension Father Family Medical History: Diabetes Mellitus, Hypertension Medications and Allergies Home Medications Medication Instructions Recorded Confirmed Type Nitroglycerin Sl Tabs [Nitrostat] 0.4 mg SL Q5M PRN 05/09/20 09/20/24 History Sacubitril/Valsartan [Entresto 24 1 tab PO BID 06/16/24 09/20/24 History mg-26 mg Tablet] Aspirin 81 mg PO DAILY #30 tab 06/17/24 09/20/24 Rx Pantoprazole Sodium [Protonix] 20 mg PO DAILY 08/28/24 09/20/24 History carvediloL [Coreg] 25 mg PO BID 08/28/24 09/20/24 History cloNIDine 0.3 MG/24HR PATCH 1 patch TRANSDERM REDD 08/28/24 09/20/24 History [Catapres-TTS] Cholestyramine (with Sugar) 4 gm PO TID BETWEEN MEALS 7 Days 09/02/24 09/20/24 Rx [Questran Packet] #21 packet hydrALAZINE HCL [Apresoline] 100 mg PO TID 30 Days #90 tab 09/02/24 09/20/24 Rx Allergies Allergy/AdvReac Type Severity Reaction Status Date / Time nickel Allergy Rash/Hives Verified 09/20/24 07:06 Physical Exam Vitals: Vital Signs Temp Pulse Resp BP Pulse Ox 09/20/24 11:18 72 16 201/115 98 09/20/24 10:08 74 14 180/103 98 09/20/24 09:21 73 16 196/109 99 09/20/24 08:38 73 16 179/98 99 09/20/24 07:47 75 16 182/99 99 09/20/24 07:06 76 16 162/94 09/20/24 06:55 76 16 145/84 98 09/20/24 06:07 75 18 175/101 98 09/20/24 04:38 77 22 157/87 98 09/20/24 03:04 78 16 168/91 96 09/20/24 02:08 81 19 165/94 97 09/20/24 01:00 82 20 172/107 98 09/20/24 00:00 80 18 210/109 99 09/19/24 23:50 81 20 221/117 99 09/19/24 23:02 82 18 205/110 100 09/19/24 21:46 85 18 209/108 99 09/19/24 20:42 97.7 F 89 18 218/97 100 Intake and Output 09/19/24 09/20/24 09/20/24 22:59 06:59 14:59 Other: Weight 79.379 kg Results CBC & Chem 7: 09/19/24 21:29 09/19/24 21:29 Labs: Abnormal Lab Results - Last 24 Hours (Table) 09/19/24 09/19/24 09/19/24 Range/Units 21:29 21:29 21:29 RBC 3.46 L (4.30-5.90) m/uL Hgb 10.9 L (13.0-17.5) gm/dL Hct 34.2 L (39.0-53.0) % RDW 18.3 H (11.5-15.5) % Lymphocytes # 0.6 L (1.0-4.8) k/uL PT 12.9 H (10.0-12.5) sec INR 1.2 H (<1.2) Potassium 5.5 H (3.5-5.1) mmol/L Carbon Dioxide 21 L (22-30) mmol/L BUN 45 H (9-20) mg/dL Creatinine 9.30 H* (0.66-1.25) mg/dL Glucose 131 H (74-99) mg/dL Alkaline Phosphatase 143 H (38-126) U/L Troponin I (0.000-0.034) ng/mL Total Protein 8.6 H (6.3-8.2) g/dL 09/19/24 09/20/24 09/20/24 Range/Units 21:29 00:35 04:41 RBC (4.30-5.90) m/uL Hgb (13.0-17.5) gm/dL Hct (39.0-53.0) % RDW (11.5-15.5) % Lymphocytes # (1.0-4.8) k/uL PT (10.0-12.5) sec INR (<1.2) Potassium (3.5-5.1) mmol/L Carbon Dioxide (22-30) mmol/L BUN (9-20) mg/dL Creatinine (0.66-1.25) mg/dL Glucose (74-99) mg/dL Alkaline Phosphatase (38-126) U/L Troponin I 0.053 H* 0.069 H* 0.100 H* (0.000-0.034) ng/mL Total Protein (6.3-8.2) g/dL
[2024-09-20 13:35] VITALS: BMI 23.7
[2024-09-20] MEDS: CHOLESTYRAMINE (WITH SUGAR) 4 GM PACKET PO SCH (16:30)
[2024-09-20] MEDS: HEPARIN SODIUM,PORCINE 5,000 UNIT/ML 1 ML VIAL SQ SCH (16:35)
[2024-09-20 17:04] LABS: Hepatitis B Surface Antigen Nonreactive (Nonreactive)
[2024-09-20 17:23] LABS: Glucose,Whole Blood 105 mg/dL (70-110)
[2024-09-20] MEDS: ACETAMINOPHEN TAB 325 MG TAB PO PRN (17:43)
[2024-09-20] MEDS: hydrALAZINE HCL 20 MG/ML 1 ML VIAL IVP PRN (17:43)
[2024-09-20 20:04] VITALS: RESP 16
[2024-09-20 20:24] LABS: Glucose,Whole Blood 129 mg/dL (70-110)
[2024-09-20] MEDS: PANTOPRAZOLE 40 MG/10 ML VIAL IVP SCH (21:08)
[2024-09-20] MEDS ORDERED: bisacodyL 10 MG SUPP RECTAL PRN (22:49)
[2024-09-20] MEDS: SENNOSIDES-DOCUSATE SODIUM 1 EACH TAB PO PRN (23:05)
[2024-09-21] MEDS: hydrALAZINE HCL 20 MG/ML 1 ML VIAL IVP STA (02:25)
[2024-09-21 04:58] VITALS: TEMP 98.3
[2024-09-21 06:12] LABS: Glucose,Whole Blood 116 mg/dL (70-110)
[2024-09-21 07:39] LABS: African American GFR (CKD) 10 (>60 ml/min/1.73 sqM); Anion Gap 10 mmol/L; Blood Urea Nitrogen 39 mg/dL (9-20); Carbon Dioxide 27 mmol/L (22-30); Chloride 97 mmol/L (98-107); Glucose 110 mg/dL (74-99); Non-African American GFR(CKD) 9 (>60 ml/min/1.73 sqM); Phosphorus 4.6 mg/dL (2.5-4.5); Potassium 4.8 mmol/L (3.5-5.1); Sodium 134 mmol/L (137-145)
[2024-09-21] MEDS ORDERED: NON FORMULARY DRUG (Pantoprazole Sodium [Protonix] 20 MG Tablet) PO SCH (09:00)
[2024-09-21 09:16] VITALS: PULSE 66
[2024-09-21] MEDS: NIFEdipine XL 30 MG TAB.ER.24 PO SCH (09:16)
--- NOTE | 2024-09-21 10:12 | P.PN ---
Subjective Patient is seen in follow-up for end-stage renal disease. He is maintained on hemodialysis on Friday schedule. Underwent hemodialysis yesterday with 3 L ultrafiltration. No vomiting or diarrhea. Denies chest pain or shortness of breath. No active complaints. Wants to go home. Vital signs - blood pressure high. General: No acute distress. HEENT: Head exam is unremarkable. Cut the LUNGS: No audible rhonchi or wheezes. HEART: Rate and Rhythm are regular. ABDOMEN: Nontender. EXTREMITITES: No edema. Objective - Vital Signs Vital signs: Vital Signs Temp 98.3 F 09/21/24 04:00 Pulse 66 09/21/24 09:15 Resp 16 09/21/24 09:15 BP 218/104 09/21/24 09:15 Pulse Ox 100 09/21/24 09:15 FiO2 Intake & Output 09/20/24 09/21/24 09/21/24 18:59 06:59 18:59 Intake Total 400 20 10 Output Total 5600 Balance -5200 20 10 Weight 79.379 kg 76.5 kg Intake: IV 20 10 Invasive Line 1 20 10 Hemodialysis 400 Output: Hemodialysis 3000 Hemodialysis Net Amount 2600 Other: Voiding Method Toilet Toilet Urinal Urinal # Voids 1 # Bowel Movements 0 - Labs CBC & Chem 7: 09/19/24 21:29 09/21/24 06:16 Labs: Abnormal Lab Results - Last 24 Hours (Table) 09/20/24 09/20/24 09/21/24 Range/Units 04:41 20:22 06:10 Sodium (137-145) mmol/L Chloride (98-107) mmol/L BUN (9-20) mg/dL Creatinine (0.66-1.25) mg/dL Glucose (74-99) mg/dL POC Glucose (mg/dL) 129 H 116 H (70-110) mg/dL Phosphorus (2.5-4.5) mg/dL Hep Bs Antibody A (Negative) 09/21/24 Range/Units 06:16 Sodium 134 L (137-145) mmol/L Chloride 97 L (98-107) mmol/L BUN 39 H (9-20) mg/dL Creatinine 7.06 H* (0.66-1.25) mg/dL Glucose 110 H (74-99) mg/dL POC Glucose (mg/dL) (70-110) mg/dL Phosphorus 4.6 H (2.5-4.5) mg/dL Hep Bs Antibody (Negative) Assessment and Plan Plan: Assessment: 1. End-stage renal disease maintained on hemodialysis on Friday schedule. 2. Nausea and vomiting. Possibly due to underlying gastroparesis. Seen by cardiology. 3. Hypertension with chronic kidney disease. Exacerbated by vomiting. 4. Hyperkalemia secondary to chronic kidney disease and Entresto. Improved postdialysis. 5. Recent cardiac arrest. 6. Diabetes mellitus. 7. Chronic kidney disease mineral bone disease. Phosphorus level 4.6 dated September 21, 2024. Plan: Hemodialysis tomorrow. Resume home dose nifedipine. Morning dose to be given now. Maintain as needed hydralazine.
[2024-09-21 10:29] VITALS: BP 217/102
--- NOTE | 2024-09-21 10:32 | P.PN ---
Subjective Progress Note Date: 09/21/24 Consult reason: chest pain History of present illness: This is a 44-year-old male patient of Dr. Martines with past medical history of end-stage renal disease, hypertension, recently hospitalized for hypertensive crisis and was hospitalized 1 month ago and had apneic and cardiac arrest while in the emergency center with PEA rhythm. He underwent CPR on 3 occasions and was intubated. He did not require vasopressors. Patient presents now to the hospital due to nausea and vomiting. He is normally on dialysis Friday. He has had increasing weakness and shortness of breath with decreased appetite along with nausea and vomiting. He denies having any chest pain at this time. He presented with blood pressure of 209/108. Currently, blood pressure is 180/104, heart rate 75, pulse ox 98% on room air. During patient's last office visit with Dr. Martines, Dr. Martines had spoken with his [place] transplant [facility] physician, Dr. Mohr and wanted patient to be scheduled for angiogram soon. Discussed with with the patient that this would not be done during this hospitalization and nausea and vomiting need to be resolved. This would be worked up as an outpatient with Dr. Martines making arrangements. -EKG: Sinus rhythm -Chest x-ray: Cardiomegaly, pulmonary vascular congestion -Laboratory studies: WBC 7.6, hemoglobin 10.9. BUN 45 creatinine 9.8, sodium 140, potassium 5.5. Troponin 0.0530.069 and 0.1. Acetone negative. proBNP 152,000. -Home cardiac medications: Aspirin 81 mg daily, Coreg 25 mg twice daily, clonidine 0.3 mg/h patch on Sundays, hydralazine 100 mg 3 times daily, Entresto 24-26 mg twice daily. -Echocardiogram performed 08/30/2024 reveals dilated LV with impaired LV systolic function, EF 35 to 40%, left ventricular hypertrophy. Mild to moderate mitral regurgitation, moderate pulmonary hypertension, moderately dilated RV, no pericardial effusion. -Lexiscan Cardiolite stress test performed in the office in 08/10/2020 revealed negative Lexiscan stress test. Abnormal study with fixed defect in the inferior basal segment suggestive of possible previous NC though soft tissue attenuation cannot be excluded. EF about 40%, no reversible ischemia. 08/22/2024 Patient seen and examined. He is now on the cardiac stepdown unit. He denies having any chest pain. Also nausea and vomiting are improved. Patient has been seen by nephrology and underwent hemodialysis yesterday and scheduled for next hemodialysis tomorrow. Nephrology has resumed nifedipine this morning. Blood pressure 217/102, heart rate in the 60s, pulse ox 100% on room air. Repeat blood work reveals sodium 134, potassium 4.8, creatinine 7.06. Physical examination: Gen: This is a 44-year-old black male currently retching. VS: reviewed HEENT: Head is atraumatic, normocephalic. Pupils equal, round. Sclerae is anicteric. NECK: Supple. No JVD. LUNGS: Clear to auscultation. No wheezes or rhonchi. No intercostal retractions. HEART: Regular rate and rhythm. No murmur. ABDOMEN: Soft No tenderness. EXTREMITIES: No pedal edema. No calf tenderness. NEUROLOGICAL: Patient is awake, alert and oriented x3. Assessment: Elevated troponin secondary to chronic kidney disease Hypertensive emergency End-stage renal disease on hemodialysis Friday History of cardiac arrest on previous hospitalization Dilated cardiomyopathy with EF of 45% Chronic systolic heart failure Plan: Continue patient's home cardiac medications No need to repeat echocardiogram as this was done on 08/30 No further cardiac workup at this time. Patient is cleared for discharge and may follow-up with Dr. Martines in 1 week. Cardiology will sign off this case and follow on an as-needed basis. Please reconsult for any new concerns. Nurse practitioner note has been reviewed, I agree with documented findings and plan of care. Patient was seen and examined. Objective - Vital Signs Vital signs: Vital Signs Temp 98.3 F 09/21/24 04:00 Pulse 68 09/21/24 04:00 Resp 16 09/21/24 04:00 BP 202/93 09/21/24 04:00 Pulse Ox 98 09/21/24 04:00 FiO2 Intake & Output 09/20/24 09/21/24 09/21/24 18:59 06:59 18:59 Intake Total 400 20 Output Total 5600 Balance -5200 20 Weight 79.379 kg 76.5 kg Intake: IV 20 Invasive Line 1 20 Hemodialysis 400 Output: Hemodialysis 3000 Hemodialysis Net Amount 2600 Other: Voiding Method Toilet Urinal # Voids 1 # Bowel Movements 0 - Labs CBC & Chem 7: 09/19/24 21:29 09/21/24 06:16 Labs: Abnormal Lab Results - Last 24 Hours (Table) 09/20/24 09/20/24 09/21/24 Range/Units 04:41 20:22 06:10 POC Glucose (mg/dL) 129 H 116 H (70-110) mg/dL Hep Bs Antibody A (Negative)
[2024-09-21 11:48] LABS: Glucose,Whole Blood 153 mg/dL (70-110)
[2024-09-21] MEDS ORDERED: NIFEdipine XL 90 MG TAB.ER.24 PO SCH (21:00)
--- NOTE | 2024-09-23 12:00 | P.DS ---
Providers Date of admission: 09/19/24 22:13 Attending physician: Sudhir King Consults: 09/19/24 22:48 Consult Physician Routine Consulting Provider: Brianne Rodriguez Consult Reason/Comments: cp Do you want consulting provider notified?: Yes Consult Physician Routine Consulting Provider: Jonn Marcum Consult Reason/Comments: ckd Do you want consulting provider notified?: Yes Primary care physician: [facility] Course: Final Diagnosis -Chest pain appears to be mostly gastroesophageal reflux disease than cardiac chest pain patient Protonix will be changed to 40 IV twice a day. Cardiology evaluated the patient as well troponin elevation secondary to chronic kidney disease -Troponin elevation secondary to chronic kidney disease. -Hyperkalemia secondary to chronic kidney disease end-stage renal disease and Entresto patient is undergoing hemodialysis -Congestive heart failure chronic systolic function EF of around 40% dilated cardiomyopathy: Patient is undergoing hemodialysis with removal of 2 L may require hemodialysis tomorrow again although patient is clinically not short of breath -End-stage renal disease hemodialysis dependent -Recent history of cardiac arrest -Hypertensive urgency: Patient will be resumed on home medications hydralazine dose was increased will monitor her overnight -Hyperlipidemia -Gastroesophageal reflux disease Discharge Disposition Patient is stable for discharge home. Patient has been cleared by cardiology and nephrology consultations. Continue usual hemodialysis scheduled Friday. Hospital Course 44-year-old male came in with complaints of nausea vomiting followed by epigastric and precordial chest pain patient believes it is heartburn and acid reflux which usually resolves in this time he did not because of which patient came to the hospital patient blood pressure is significantly higher with systolics going about 200 patient's troponin is slightly elevated although patient has chronic kidney disease. Patient had any fever chills patient chest pain is nonradiating associate with spicy food no associated diaphoresis shortness of breath. Patient is end-stage renal disease with serum potassium of 5.5 he is undergoing hemodialysis today chest x-ray showing cardiomegaly and pulmonary vascular congestion patient is not urinating at this time patient is also on Entresto, beta-jamarcus there is Coreg 25 twice a day hydralazine 50 3 times daily which was increased to 100 3 times daily by cardiology. Patient has known congestive heart failure with EF of around 40% appears to be nonischemic cardiomyopathy. Patient is mild heart failure exacerbation at this time. He was admitted with cardiology and nephrology consultation. Patient received hemodialysis. Nifedipine was increased. Systolic still remains elevated. Cardiology and nephrology have cleared for discharge. Please see medication reconciliation for a list of current medications. Thank you for allowing us to participate in the care of this patient. The impression and plan of care has been dictated by Taty Boswell, Nurse Practitioner as directed. Dr. Myah MD I have performed a history and physical examination and medical decision making of this patient, discussed the same with the dictator, and agree with the dictators assessment and plan as written, documented as a scribe. Based on total visit time, I have performed more than 50% of this visit. Patient Condition at Discharge: Stable Plan - Discharge Summary New Discharge Prescriptions: New NIFEdipine XL [Procardia XL] 30 mg PO DAILY #30 tab NIFEdipine XL [Procardia XL] 90 mg PO HS #30 tab Continue Nitroglycerin Sl Tabs [Nitrostat] 0.4 mg SL Q5M PRN PRN Reason: Chest Pain cloNIDine 0.3 MG/24HR PATCH [Catapres-TTS] 1 patch TRANSDERM REDD Pantoprazole Sodium [Protonix] 20 mg PO DAILY carvediloL [Coreg] 25 mg PO BID hydrALAZINE HCL [Apresoline] 100 mg PO TID 30 Days #90 tab Cholestyramine (with Sugar) [Questran Packet] 4 gm PO TID BETWEEN MEALS 7 Days #21 packet Sacubitril/Valsartan [Entresto 24 mg-26 mg Tablet] 1 tab PO BID Aspirin 81 mg PO DAILY #30 tab Discharge Medication List Nitroglycerin Sl Tabs [Nitrostat] 0.4 mg SL Q5M PRN 05/09/20 [History] Sacubitril/Valsartan [Entresto 24 mg-26 mg Tablet] 1 tab PO BID 06/16/24 [History] Aspirin 81 mg PO DAILY #30 tab 06/17/24 [Rx] Pantoprazole Sodium [Protonix] 20 mg PO DAILY 08/28/24 [History] carvediloL [Coreg] 25 mg PO BID 08/28/24 [History] cloNIDine 0.3 MG/24HR PATCH [Catapres-TTS] 1 patch TRANSDERM REDD 08/28/24 [History] Cholestyramine (with Sugar) [Questran Packet] 4 gm PO TID BETWEEN MEALS 7 Days #21 packet 09/02/24 [Rx] hydrALAZINE HCL [Apresoline] 100 mg PO TID 30 Days #90 tab 09/02/24 [Rx] NIFEdipine XL [Procardia XL] 30 mg PO DAILY #30 tab 09/21/24 [Rx] NIFEdipine XL [Procardia XL] 90 mg PO HS #30 tab 09/21/24 [Rx] Follow up Appointment(s)/Referral(s): Jj Galindo MD [Primary Care Provider] - 1-2 days (Please call to schedule follow up appoitment) Jonn Marcum DO [STAFF PHYSICIAN] - 1 Week (Please call to schedule follow up appoitment) Patient Instructions/Handouts: Heart Failure (ER) Activity/Diet/Wound Care/Special Instructions: Continue your same hemodialysis session MWF Discharge Disposition: HOME SELF-CARE
== END 2024-09-21 12:54 | disposition home or self-care (01) ==
LOC: EC 20:26 → INTOOBSV 22:13 → 3SCARD 22:13
PROVIDERS: ADMIT Hospitalist; ATTEND Hospitalist
DX: R07.9 Chest pain, unspecified (principal); R11.2 Nausea with vomiting, unspecified; K21.9 Gastro-esophageal reflux disease without esophagitis; I16.0 Hypertensive urgency; E11.22 Type 2 diabetes mellitus with diabetic chronic kidney disease; I13.2 Hypertensive heart and chronic kidney disease with heart failure and with stage 5 chronic kidney disease, or end stage renal disease; N18.6 End stage renal disease; E87.5 Hyperkalemia; R79.89 Other specified abnormal findings of blood chemistry; E78.5 Hyperlipidemia, unspecified; E11.319 Type 2 diabetes mellitus with unspecified diabetic retinopathy without macular edema; I25.10 Atherosclerotic heart disease of native coronary artery without angina pectoris; I25.2 Old myocardial infarction; I25.5 Ischemic cardiomyopathy; I27.20 Pulmonary hypertension, unspecified; I34.0 Nonrheumatic mitral (valve) insufficiency; I42.0 Dilated cardiomyopathy; I50.22 Chronic systolic (congestive) heart failure; M89.8X9 Other specified disorders of bone, unspecified site; Z79.82 Long term (current) use of aspirin; Z79.899 Other long term (current) drug therapy; Z86.74 Personal history of sudden cardiac arrest; Z95.5 Presence of coronary angioplasty implant and graft; Z99.2 Dependence on renal dialysis
CPT/HCPCS: 96376 ×4; 96372 ×3; 96361; 96374; 96375 ×2; 99291; 36415; 93005; 83880; 80053; 80048; 82009; 83690; 83735; 84100; 84484 ×2; 85025; 85610; 85730; 86706; 87340; 71046; G0378 ×3; J2270; J0360 ×2; J1644 ×2; J2405 ×2; J1920; J2470 ×3; 90935

== ENCOUNTER 2024-10-08 05:16 | Observation (INO) | payer MEDICARE ==
--- NOTE | 2024-10-08 05:41 | ED ---
General Adult HPI - General Source: patient Mode of arrival: ambulatory Limitations: no limitations <CisseMer P - Last Filed: 10/08/24 05:41> - General Source: patient, family, RN notes reviewed, old records reviewed Mode of arrival: ambulatory Limitations: no limitations <Charlotte Ortiz - Last Filed: 10/08/24 09:27> - General Chief complaint: Chest Pain Stated complaint: Chest Pain Time Seen by Provider: 10/08/24 05:40 - History of Present Illness Initial comments: 44-year-old male presented to the ER for evaluation of chest discomfort. Patient has a past medical history of heart failure, coronary artery disease, renal disease, myocardial infarction and cardiac arrest on 08-28-2024. Patient attends dialysis Friday his last treatment was Friday. He states last night he noticed his blood pressure was elevated and took medications as prescribed. He states he woke up this morning he was having a sharp stabbing right centralized chest discomfort. No radiation. He reported shortness of breath during that time. No dizziness, lightheadedness, nausea or vomiting. Patient follow-up with Dr. Ledezma and Dr. Martines for cardiology. Patient denies any fevers, cough, congestion, abdominal pain, constipation/diarrhea. (Charlotte Ortiz) - Related Data Home Medications Medication Instructions Recorded Confirmed Nitroglycerin Sl Tabs [Nitrostat] 0.4 mg SL Q5M PRN 05/09/20 09/20/24 Sacubitril/Valsartan [Entresto 24 1 tab PO BID 06/16/24 09/20/24 mg-26 mg Tablet] Pantoprazole Sodium [Protonix] 20 mg PO DAILY 08/28/24 09/20/24 carvediloL [Coreg] 25 mg PO BID 08/28/24 09/20/24 cloNIDine 0.3 MG/24HR PATCH 1 patch TRANSDERM REDD 08/28/24 09/20/24 [Catapres-TTS] Previous Rx's Medication Instructions Recorded Aspirin 81 mg PO DAILY #30 tab 06/17/24 Cholestyramine (with Sugar) 4 gm PO TID BETWEEN MEALS 7 Days 09/02/24 [Questran Packet] #21 packet hydrALAZINE HCL [Apresoline] 100 mg PO TID 30 Days #90 tab 09/02/24 NIFEdipine XL [Procardia XL] 30 mg PO DAILY #30 tab 09/21/24 NIFEdipine XL [Procardia XL] 90 mg PO HS #30 tab 09/21/24 Allergies Allergy/AdvReac Type Severity Reaction Status Date / Time nickel Allergy Rash/Hives Verified 10/08/24 05:21 Review of Systems ROS Other: All systems not noted in ROS Statement are negative. <Mer Cisse - Last Filed: 10/08/24 05:41> ROS Other: All systems not noted in ROS Statement are negative. <Charlotte Ortiz - Last Filed: 10/08/24 09:27> ROS Statement: Those systems with pertinent positive or pertinent negative responses have been documented in the HPI. Past Medical History Past Medical History: Coronary Artery Disease (CAD), Heart Failure, Eye Disorder, GERD/Reflux, Hyperlipidemia, Hypertension, Myocardial Infarction (SD), Renal Disease, Respiratory Disorder Additional Past Medical History / Comment(s): Pt recently admitted to [facility] on 05/09/20 with acute on chronic CHF/amyloidosis with generalized anasarca/acute on chronic kidney injury/acute anemia/advanced CAD/valvular disease/severe pulmonary htn/abnormal liver test/hyperlipidemia. Other hx: IDDM type II, pt states informed he had kidney disease in Feb, 2020 then ESRD diagnosed 05/09/20 with hemodialysis M/W/F,neuropathy bilateral feet, L foot ulcer with debridements, L eye blindness d/t diabetic retinopathy, ischemic cardiomyopathy, anasarca/lower leg edema. Last Myocardial Infarction Date:: 03/30/2018 History of Any Multi-Drug Resistant Organisms: None Reported Past Surgical History: Heart Catheterization With Stent Additional Past Surgical History / Comment(s): 05/17/20 R subclavian hemodialysis catheter, debridements L foot wound, R eye surgery-pt believes to remove cataract, SEAN fistula Additional Past Anesthesia/Blood Transfusion Reaction / Comment(s): During 3rd debridement L foot ulcer Date of Last Stent Placement:: 03/31/2018 Past Psychological History: No Psychological Hx Reported Smoking Status: Never smoker Past Alcohol Use History: None Reported Past Drug Use History: None Reported - Past Family History Mother Family Medical History: Diabetes Mellitus, Hyperlipidemia, Hypertension Father Family Medical History: Diabetes Mellitus, Hypertension <Mer Cisse - Last Filed: 10/08/24 05:41> General Exam Limitations: no limitations <Mer Cisse P - Last Filed: 10/08/24 05:41> Limitations: no limitations General appearance: alert, in no apparent distress Respiratory exam: Present: normal lung sounds bilaterally. Absent: respiratory distress, wheezes, rales, rhonchi, stridor Cardiovascular Exam: Present: regular rate, normal rhythm, normal heart sounds. Absent: systolic murmur, diastolic murmur, rubs, gallop, clicks Extremities exam: Present: pedal edema (1+ bilaterally) Neurological exam: Present: alert, oriented X3, CN II-XII intact Skin exam: Present: warm, dry, intact, normal color. Absent: rash <Charlotte Ortiz - Last Filed: 10/08/24 09:27> Course <Charlotte Ortiz - Last Filed: 10/08/24 09:27> Vital Signs 10/08/24 10/08/24 05:18 09:11 Temperature 97.6 F Pulse Rate 69 65 Respiratory 18 18 Rate Blood Pressure 121/57 111/58 O2 Sat by Pulse 100 100 Oximetry - Reevaluation(s) Reevaluation #1: 10/08/24 08:[address] Miller, [facility], for admission. 10/08/24 09:[address] Marcum for dialysis (Charlotte Ortiz) EKG Findings - EKG Comments: EKG Findings:: EKG taken at 5: 29 showing a sinus rhythm. No acute ST segment or T wave abnormalities. Ventricular rate 67, NC interval 200, QRS ration 99, QT/QTc 434/450 <Chralotte Ortiz - Last Filed: 10/08/24 09:27> Medical Decision Making - Lab Data Result diagrams: 10/08/24 06:15 10/08/24 06:15 - Radiology Data Radiology results: report reviewed, image reviewed <Charlotte Ortiz - Last Filed: 10/08/24 09:27> - Medical Decision Making Was pt. sent in by a medical professional or institution (, PA, WOOD SCALER, urgent care, hospital, or [facility]...) When possible be specific @ -No Did you speak to anyone other than the patient for history (EMS, parent, family, police, friend...)? What history was obtained from this source @ -No Did you review nursing and triage notes (agree or disagree)? Why? @ -I reviewed and agree with nursing and triage notes Were old charts reviewed (outside hosp., previous admission, EMS record, old EKG, old radiological studies, urgent care reports/EKG's, [facility] records)? Report findings @ -Yes, I reviewed ER visit and admission from 08-28-2024 patient seen here for AMS. Patient had cardiac arrest and was admitted to the ICU. Differential Diagnosis (chest pain, altered mental status, abdominal pain women, abdominal pain men, vaginal bleeding, weakness, fever, dyspnea, syncope, headache, dizziness, GI bleed, back pain, seizure, CVA, palpatations, mental health, musculoskeletal)? @ -Differential Chest Pain:Stable Angina, Unstable Angina, STEMI, NSTEMI Aortic Dissection, Pneumothorax, Musculoskeletal, Esophageal Spasm GERD, Cholecystitis, Pancreatitis, Zoster, this is not meant to be an all-inclusive list. EKG interpreted by me (3pts min.). @ -As above X-rays interpreted by me (1pt min.). @ -CXR interpreted me negative for acute cardiopulmonary process. CT interpreted by me (1pt min.). @ -None done U/S interpreted by me (1pt. min.). @ -None done What testing was considered but not performed or refused? (CT, X-rays, U/S, labs)? Why? @ -None What meds were considered but not given or refused? Why? @ -None Did you discuss the management of the patient with other professionals (professionals i.e. , PA, WOOD SCALER, lab, RT, psych nurse, social media strategist, design specialist, teacher, tax compliance officer, case management coordinator)? Give summary @ -Yes, case discussed with Dr. Miller, [facility], for admission. I also discussed this case with Dr. Marcum for dialysis Was smoking cessation discussed for >3mins.? @ -No Was critical care preformed (if so, how long)? @ -No Were there social determinants of health that impacted care today? How? (Homelessness, low income, unemployed, alcoholism, drug addiction, transportation, low edu. Level, literacy, decrease access to med. care, longterm, rehab)? @ -No Was there de-escalation of care discussed even if they declined (Discuss DNR or withdrawal of care, Hospice)? DNR status @ -No What co-morbidities impacted this encounter? (DM, HTN, Smoking, COPD, CAD, Cancer, CVA, ARF, Chemo, Hep., AIDS, mental health diagnosis, sleep apnea, morbid obesity)? @ -End-stage renal disease on dialysis, heart failure, coronary artery disease, hypertension, hyperlipidemia, history of myocardial infarction, history of cardiac arrest (08/28/24) Was patient admitted / discharged? Hospital course, mention meds given and route, prescriptions, significant lab abnormalities, going to OR and other pertinent info. @ -Admitted. 44-year-old male with a significant past medical history presenting to the ER for evaluation of chest discomfort. Upon evaluation, patient resting comfortably in exam room no signs of acute distress. Vitals stable. Laboratory studies showing end-stage renal disease with a creatinine of 9.11 with a GFR of 6. Potassium 3.8. This appears to be around patient's baseline. Patient is due for dialysis today. Troponin 0.045 which is decreased from 09-20-2023 at 0.100. BNP 101,000 (09/20/24 [id number]). EKG showing a normal sinus rhythm no acute ST segment elevations. CXR negative. Given patient's extensive medical history admission was considered and discussed with [facility], Dr. Miller, for further evaluation of chest discomfort. Nephrology on consult for dialysis. Troponin may be due to chronic kidney disease, these will be trending. Patient agreeable for admission. Case discussed with ED attending Dr. Galan. Undiagnosed new problem with uncertain prognosis? @ -No Drug Therapy requiring intensive monitoring for toxicity (Heparin, Nitro, Insulin, Cardizem)? @ -No Were any procedures done? @ -No Diagnosis/symptom? @ -Chest pain/end-stage renal disease Acute, or Chronic, or Acute on Chronic? @ -Acute Uncomplicated (without systemic symptoms) or Complicated (systemic symptoms)? @ -Complicated Side effects of treatment? @ -No Exacerbation, Progression, or Severe Exacerbation? @ -No Poses a threat to life or bodily function? How? (Chest pain, USA, SD, pneumonia, PE, COPD, DKA, ARF, appy, cholecystitis, CVA, Diverticulitis, Homicidal, Suicidal, threat to staff... and all critical care pts) @ - Yes, chest pain can lead to ACS and lethal cardiac arrhythmia (Charlotte Ortiz) - Lab Data Lab Results 10/08/24 10/08/24 10/08/24 Range/Units 06:15 06:15 06:15 WBC 4.7 (3.8-10.6) k/uL RBC 3.19 L (4.30-5.90) m/uL Hgb 10.1 L (13.0-17.5) gm/dL Hct 31.6 L (39.0-53.0) % MCV 99.3 (80.0-100.0) fL MCH 31.8 (25.0-35.0) pg MCHC 32.0 (31.0-37.0) g/dL RDW 17.3 H (11.5-15.5) % Plt Count 124 L (150-450) k/uL MPV 11.0 Neutrophils % 68 % Lymphocytes % 17 % Monocytes % 10 % Eosinophils % 2 % Basophils % 1 % Neutrophils # 3.1 (1.3-7.7) k/uL Lymphocytes # 0.8 L (1.0-4.8) k/uL Monocytes # 0.5 (0-1.0) k/uL Eosinophils # 0.1 (0-0.7) k/uL Basophils # 0.0 (0-0.2) k/uL Hypochromasia Slight Anisocytosis Slight Macrocytosis Slight PT 12.7 H (10.0-12.5) sec INR 1.2 H (<1.2) APTT 30.3 H (22.0-30.0) sec Sodium 135 L (137-145) mmol/L Potassium 3.8 (3.5-5.1) mmol/L Chloride 100 (98-107) mmol/L Carbon Dioxide 28 (22-30) mmol/L Anion Gap 7 mmol/L BUN 36 H (9-20) mg/dL Creatinine 9.11 H* (0.66-1.25) mg/dL Est GFR (CKD-EPI)AfAm 7 (>60 ml/min/1.73 sqM) Est GFR (CKD-EPI)NonAf 6 (>60 ml/min/1.73 sqM) Glucose 135 H (74-99) mg/dL Calcium 9.4 (8.4-10.2) mg/dL Magnesium 2.2 (1.6-2.3) mg/dL Total Bilirubin 0.7 (0.2-1.3) mg/dL AST 14 L (17-59) U/L ALT 10 (4-49) U/L Alkaline Phosphatase 105 (38-126) U/L Troponin I (0.000-0.034) ng/mL NT-Pro-B Natriuret Pep [id number] pg/mL Total Protein 7.1 (6.3-8.2) g/dL Albumin 3.8 (3.5-5.0) g/dL 10/08/24 Range/Units 06:15 WBC (3.8-10.6) k/uL RBC (4.30-5.90) m/uL Hgb (13.0-17.5) gm/dL Hct (39.0-53.0) % MCV (80.0-100.0) fL MCH (25.0-35.0) pg MCHC (31.0-37.0) g/dL RDW (11.5-15.5) % Plt Count (150-450) k/uL MPV Neutrophils % % Lymphocytes % % Monocytes % % Eosinophils % % Basophils % % Neutrophils # (1.3-7.7) k/uL Lymphocytes # (1.0-4.8) k/uL Monocytes # (0-1.0) k/uL Eosinophils # (0-0.7) k/uL Basophils # (0-0.2) k/uL Hypochromasia Anisocytosis Macrocytosis PT (10.0-12.5) sec INR (<1.2) APTT (22.0-30.0) sec Sodium (137-145) mmol/L Potassium (3.5-5.1) mmol/L Chloride (98-107) mmol/L Carbon Dioxide (22-30) mmol/L Anion Gap mmol/L BUN (9-20) mg/dL Creatinine (0.66-1.25) mg/dL Est GFR (CKD-EPI)AfAm (>60 ml/min/1.73 sqM) Est GFR (CKD-EPI)NonAf (>60 ml/min/1.73 sqM) Glucose (74-99) mg/dL Calcium (8.4-10.2) mg/dL Magnesium (1.6-2.3) mg/dL Total Bilirubin (0.2-1.3) mg/dL AST (17-59) U/L ALT (4-49) U/L Alkaline Phosphatase (38-126) U/L Troponin I 0.045 H* (0.000-0.034) ng/mL NT-Pro-B Natriuret Pep pg/mL Total Protein (6.3-8.2) g/dL Albumin (3.5-5.0) g/dL Disposition <Mer Cisse - Last Filed: 10/08/24 05:41> Time of Disposition: 08:57 <Charlotte Ortiz - Last Filed: 10/08/24 09:27> Clinical Impression: Chest pain, ESRD (end stage renal disease) Disposition: ADMITTED IP TO THIS HOSP Condition: Stable Referrals: Jj Galindo MD [Primary Care Provider] - 1-2 days
[2024-10-08 06:48] LABS: ALT 10 U/L (4-49); AST 14 U/L (17-59); African American GFR (CKD) 7 (>60 ml/min/1.73 sqM); Albumin 3.8 g/dL (3.5-5.0); Alkaline Phosphatase 105 U/L (38-126); Anion Gap 7 mmol/L; Blood Urea Nitrogen 36 mg/dL (9-20); Calcium 9.4 mg/dL (8.4-10.2); Carbon Dioxide 28 mmol/L (22-30); Chloride 100 mmol/L (98-107); Glucose 135 mg/dL (74-99); Magnesium 2.2 mg/dL (1.6-2.3); Non-African American GFR(CKD) 6 (>60 ml/min/1.73 sqM); Potassium 3.8 mmol/L (3.5-5.1); Sodium 135 mmol/L (137-145); Total Bilirubin 0.7 mg/dL (0.2-1.3); Total Protein 7.1 g/dL (6.3-8.2)
[2024-10-08 06:51] LABS: Anisocytosis Slight; Basophils % (A) 1 %; Eosinophils # (A) 0.1 k/uL (0-0.7); Eosinophils % (A) 2 %; HCT 31.6 % (39.0-53.0); HGB 10.1 gm/dL (13.0-17.5); Hypochromasia Slight; Lymphocytes # (A) 0.8 k/uL (1.0-4.8); Lymphocytes % (A) 17 %; MCH 31.8 pg (25.0-35.0); MCV 99.3 fL (80.0-100.0); Macrocytosis Slight; Monocytes # (A) 0.5 k/uL (0-1.0); Monocytes % (A) 10 %; Neutrophils # (A) 3.1 k/uL (1.3-7.7); Neutrophils % (A) 68 %; Platelet Count 124 k/uL (150-450); RBC 3.19 m/uL (4.30-5.90); RDW 17.3 % (11.5-15.5); WBC 4.7 k/uL (3.8-10.6)
[2024-10-08 06:57] LABS: INR 1.2 (<1.2); Partial Thromboplastin Time 30.3 sec (22.0-30.0); Prothrombin Time 12.7 sec (10.0-12.5)
[2024-10-08 07:30] LABS: NT-Pro-B-Type Natriuretic Pept 101000 pg/mL
--- NOTE | 2024-10-08 08:16 | XR ---
EXAMINATION TYPE: XR chest 2V DATE OF EXAM: 10/08/2024 6:49 AM COMPARISON: 09/19/2024 CLINICAL INDICATION: Male, 44 years old with history of Chest Pain, TECHNIQUE: Frontal and lateral views of the chest are obtained. FINDINGS: There is no focal air space opacity, pleural effusion, or pneumothorax seen. The cardiac silhouette size is within normal limits. The osseous structures are intact. IMPRESSION: No acute cardiopulmonary process. [facility], , 10/08/2024 8:13 AM
[2024-10-08] MEDS ORDERED: MORPHINE SULFATE 4 MG/ML SYRINGE IV PRN (08:36)
[2024-10-08] MEDS ORDERED: NALOXONE 0.4 MG/ML 1 ML VIAL IV PRN (08:36)
[2024-10-08] MEDS ORDERED: ONDANSETRON 4 MG/2 ML VIAL IVP PRN (08:36)
[2024-10-08] MEDS: NITROGLYCERIN OINT 1 INCH/GM PACKET TOPICAL STA (09:10)
[2024-10-08] MEDS: PANTOPRAZOLE 40 MG TABLET PO SCH (11:27)
[2024-10-08] MEDS: ASPIRIN 81 MG PO SCH (11:28)
--- NOTE | 2024-10-08 12:02 | P.NPCON ---
History of Present Illness - Reason for Consult end stage renal disease - History of Present Illness Reason for consultation: End-stage renal disease History of present illness: Patient is a 44-year-old male seen in renal consultation for end-stage renal disease. Patient is maintained on hemodialysis on Friday schedule. Patient was seen and examined in emergency room. Patient came to the hospital due to chest pain and shortness of breath this morning. Patient states last night his blood pressure was elevated and they took all his meds and went to sleep. This morning he felt short of breath and also had chest pressure and came to the hospital. Patient states his blood pressure was controlled. He feels well currently. He is due for dialysis today. Chest x-ray shows no acute process. Patient does have longstanding history of diabetes. Also has history of coronary disease with stents placed in 2018. He makes little urine. No vomiting or diarrhea. Vital signs are stable. General: No acute distress. HEENT: Head exam is unremarkable. LUNGS: No audible rhonchi or wheezes. HEART: Rate and Rhythm are regular. ABDOMEN: Nontender. EXTREMITITES: No edema. Past Medical History Past Medical History: Coronary Artery Disease (CAD), Heart Failure, Eye Disorder, GERD/Reflux, Hyperlipidemia, Hypertension, Myocardial Infarction (IA), Renal Disease, Respiratory Disorder Additional Past Medical History / Comment(s): Pt recently admitted to [facility] on 05/09/20 with acute on chronic CHF/amyloidosis with generalized anasarca/acute on chronic kidney injury/acute anemia/advanced CAD/valvular disease/severe pulmona ry htn/abnormal liver test/hyperlipidemia. Other hx: IDDM type II, pt states informed he had kidney disease in Feb, 2020 then ESRD diagnosed 05/09/20 with hemodialysis M/W/F,neuropathy bilateral feet, L foot ulcer with debridements, L eye blindness d/t diabetic retinopathy, ischemic cardiomyopathy, anasarca/lower leg edema. Last Myocardial Infarction Date:: 03/30/2018 History of Any Multi-Drug Resistant Organisms: None Reported Past Surgical History: Heart Catheterization With Stent Additional Past Surgical History / Comment(s): 05/17/20 R subclavian hemodialysis catheter, debridements L foot wound, R eye surgery-pt believes to remove cataract, SEAN fistula Additional Past Anesthesia/Blood Transfusion Reaction / Comment(s): During 3rd debridement L foot ulcer Date of Last Stent Placement:: 03/31/2018 Past Psychological History: No Psychological Hx Reported Smoking Status: Never smoker Past Alcohol Use History: None Reported Past Drug Use History: None Reported - Past Family History Mother Family Medical History: Diabetes Mellitus, Hyperlipidemia, Hypertension Father Family Medical History: Diabetes Mellitus, Hypertension Medications and Allergies Home Medications Medication Instructions Recorded Confirmed Type Nitroglycerin Sl Tabs [Nitrostat] 0.4 mg SL Q5M PRN 05/09/20 09/20/24 History Sacubitril/Valsartan [Entresto 24 1 tab PO BID 06/16/24 09/20/24 History mg-26 mg Tablet] Aspirin 81 mg PO DAILY #30 tab 06/17/24 09/20/24 Rx Pantoprazole Sodium [Protonix] 20 mg PO DAILY 08/28/24 09/20/24 History carvediloL [Coreg] 25 mg PO BID 08/28/24 09/20/24 History cloNIDine 0.3 MG/24HR PATCH 1 patch TRANSDERM REDD 08/28/24 09/20/24 History [Catapres-TTS] Cholestyramine (with Sugar) 4 gm PO TID BETWEEN MEALS 7 Days 09/02/24 09/20/24 Rx [Questran Packet] #21 packet hydrALAZINE HCL [Apresoline] 100 mg PO TID 30 Days #90 tab 09/02/24 09/20/24 Rx NIFEdipine XL [Procardia XL] 30 mg PO DAILY #30 tab 09/21/24 Rx NIFEdipine XL [Procardia XL] 90 mg PO HS #30 tab 09/21/24 Rx Allergies Allergy/AdvReac Type Severity Reaction Status Date / Time nickel Allergy Rash/Hives Verified 10/08/24 05:21 Physical Exam Vitals: Vital Signs Temp Pulse Resp BP Pulse Ox 10/08/24 09:11 65 18 111/58 100 10/08/24 05:18 97.6 F 69 18 121/57 100 Intake and Output 10/07/24 10/08/24 10/08/24 22:59 06:59 14:59 Other: Weight 79.379 kg Results - Lab Results Most recent lab results Calcium 9.4 mg/dL (8.4-10.2) 10/08/24 06:15 Magnesium 2.2 mg/dL (1.6-2.3) 10/08/24 06:15 10/08/24 06:15 10/08/24 06:15 Assessment and Plan Plan: Assessment: 1. End-stage renal disease maintained on hemodialysis on Friday ay schedule. 2. Chest pain with history of coronary artery disease. 3. Diabetes mellitus. 4. Hypertension with chronic kidney disease. Controlled. 5. Anemia of chronic kidney disease. Plan: Hemodialysis today. Check iron studies. Await cardiology recommendations. Thank you for the consultation. I will continue to follow the patient with you during his hospital stay.
[2024-10-08 13:29] LABS: Glucose,Whole Blood 118 mg/dL (70-110)
[2024-10-08] MEDS: CHOLESTYRAMINE (WITH SUGAR) 4 GM PACKET PO SCH (14:51)
[2024-10-08 16:34] LABS: % Iron Saturation 20.31 (15.00-50.00)
[2024-10-08] MEDS: MIDODRINE 5 MG TAB PO PRN (17:30)
[2024-10-08] MEDS: HEPARIN SODIUM,PORCINE 5,000 UNIT/ML 1 ML VIAL SQ SCH (17:31)
--- NOTE | 2024-10-08 22:44 | P.HPIM ---
History of Present Illness H&P Date: 10/08/24 Chief Complaint: Chest pain Patient is a 44-year-old male with a known history of ESRD on hemodialysis right upper extremity AV graft, ,chronic CHF with ejection fraction 40%, cardiomyopathy, amyloidosis with generalized anasarca, severe pulmonary hypertension, hypertension, hyperlipidemia presents to ER with complaints of chest discomfort when he wake up this morning. Patient states that his blood pressure was elevated last night.. Patient states that his pain is mainly epigastric and upper abdomen. Sharp and stabbing type. Denied any radiation of the pain. Associate with nausea. No episodes of vomiting. Mild shortness of breath along with pain. Denied any di zziness or lightheadedness.. No cough or sputum production. No fever no chills. Denied any leg swelling. Currently chest pain resolved. Patient was recently admitted to the hospital and was discharged on 09/21/2024. Patient undergoes hemodialysis Friday and Friday. Chest x-ray showed no acute cardiopulmonary process. EKG showed sinus rhythm with heart rate 67. No ST-T wave abnormality. Laboratory data showed WBC 4.7 hemoglobin 10.1 and platelets 124 Sodium 135 potassium 3.8 chloride 100 bicarbonate 28 BUN 36 and creatinine 9.11 and blood sugar 135 and magnesium 2.2 troponin 0.045, 0.036 and proBNP 10,000. Albumin 3.8. Patient was admitted to hospital in August 2024 for a month due to hypertensive crisis and had episode of apneic and cardiac arrest while in the ER with PEA. Underwent CPR and was intubated.. Review of Systems Constitutional: Patient denies any fever or chills . No generalized weakness or weight loss. Abdomen: Patient denied nausea vomiting and diarrhea and abdominal pain. Cardiovascular: Patient denies any chest pain or short of breath no palpitations. Respiratory: patient denied any cough or sputum production. No shortness of breath Neurologic: Patient denied any numbness or tingling. no headache. Musculoskeletal: Patient denies any complaints of joint swelling or deformity. Skin: Negative Psychiatric: Negative Endocrine: No heat or cold intolerance. No recent weight gain. Genitourinary: No dysuria or hematuria. All other 14 point ROS negative except the above Past Medical History Past Medical History: Coronary Artery Disease (CAD), Heart Failure, Eye Disorder, GERD/Reflux, Hyperlipidemia, Hypertension, Myocardial Infarction ([place]), Renal Disease, Respiratory Disorder Additional Past Medical History / Comment(s): Pt recently admitted to [facility] on 05/09/20 with acute on chronic CHF/amyloidosis with generalized anasarca/acute on chronic kidney injury/acute anemia/advanced CAD/valvular disease/severe pulmonary htn/abnormal liver test/hyperlipidemia. Other hx: IDDM type II, pt states informed he had kidney disease in Feb, 2020 then ESRD diagnosed 05/09/20 with hemodialysis M/W/F,neuropathy bilateral feet, L foot ulcer with debrideme nts, L eye blindness d/t diabetic retinopathy, ischemic cardiomyopathy, anasarca/lower leg edema. Last Myocardial Infarction Date:: 03/30/2018 History of Any Multi-Drug Resistant Organisms: None Reported Past Surgical History: Heart Catheterization With Stent Additional Past Surgical History / Comment(s): 05/17/20 R subclavian hemodialysis catheter, debridements L foot wound, R eye surgery-pt believes to remove cataract, SEAN fistula Additional Past Anesthesia/Blood Transfusion Reaction / Comment(s): During 3rd debridement L foot ulcer Date of Last Stent Placement:: 03/31/2018 Past Psychological History: No Psychological Hx Reported Smoking Status: Never smoker Past Alcohol Use History: None Reported Past Drug Use History: None Reported - Past Family History Mother Family Medical History: Diabetes Mellitus, Hyperlipidemia, Hypertension Father Family Medical History: Diabetes Mellitus, Hypertension Medications and Allergies Home Medications Medication Instructions Recorded Confirmed Type Nitroglycerin Sl Tabs [Nitrostat] 0.4 mg SL Q5M PRN 05/09/20 10/08/24 History Sacubitril/Valsartan [Entresto 24 1 tab PO BID 06/16/24 10/08/24 History mg-26 mg Tablet] Aspirin 81 mg PO DAILY #30 tab 06/17/24 10/08/24 Rx Pantoprazole Sodium [Protonix] 20 mg PO DAILY 08/28/24 10/08/24 History carvediloL [Coreg] 50 mg PO BID-W/MEALS 08/28/24 10/08/24 History cloNIDine 0.3 MG/24HR PATCH 1 patch TRANSDERM REDD 08/28/24 10/08/24 History [Catapres-TTS] Cholestyramine (with Sugar) 4 gm PO TID BETWEEN MEALS 7 Days 09/02/24 10/08/24 Rx [Questran Packet] #21 packet NIFEdipine XL [Procardia XL] 30 mg PO DAILY #30 tab 09/21/24 10/08/24 Rx NIFEdipine XL [Procardia XL] 90 mg PO HS #30 tab 09/21/24 10/08/24 Rx hydrALAZINE HCL [Apresoline] 100 mg PO TID-W/MEALS 10/08/24 10/08/24 History Allergies Allergy/AdvReac Type Severity Reaction Status Date / Time nickel Allergy Rash/Hives Verified 10/08/24 05:21 Physical Exam Vitals: Vital Signs Temp Pulse Resp BP Pulse Ox 10/08/24 09:11 65 18 111/58 100 10/08/24 05:18 97.6 F 69 18 121/57 100 Intake and Output 10/07/24 10/08/24 10/08/24 22:59 06:59 14:59 Other: Weight 79.379 kg PHYSICAL EXAMINATION: Patient is lying in the bed comfortably, no acute distress, awake alert and oriented.. HEENT: Normocephalic. Neck is supple. Pupils reactive. Nostrils clear. Oral cavity is moist. Neck reveals no JVD, carotid bruits, or thyromegaly. CHEST EXAMINATION: Trachea is central. Symmetrical expansion. Lung pozo clear to auscultation and percussion. CARDIAC: Normal S1, S2 with no gallops. No murmurs ABDOMEN: Soft. Bowel sounds normal. No organomegaly. No abdominal bruits. Extremities: reveal no edema. No clubbing or cyanosis Neurologically awake, alert, oriented x3 with well-coordinated movements. No focal deficits noted Skin: No rash or skin lesions. Psychiatric: Coperative. Nonsuicidal Musculoskeletal: No joint swelling or deformity. Normal range of motion. Results CBC & Chem 7: 10/08/24 06:15 10/08/24 06:15 Labs: Abnormal Lab Results - Last 24 Hours (Table) 10/08/24 10/08/24 10/08/24 Range/Units 06:15 06:15 06:15 RBC 3.19 L (4.30-5.90) m/uL Hgb 10.1 L (13.0-17.5) gm/dL Hct 31.6 L (39.0-53.0) % RDW 17.3 H (11.5-15.5) % Plt Count 124 L (150-450) k/uL Lymphocytes # 0.8 L (1.0-4.8) k/uL PT 12.7 H (10.0-12.5) sec INR 1.2 H (<1.2) APTT 30.3 H (22.0-30.0) sec Sodium 135 L (137-145) mmol/L BUN 36 H (9-20) mg/dL Creatinine 9.11 H* (0.66-1.25) mg/dL Glucose 135 H (74-99) mg/dL AST 14 L (17-59) U/L Troponin I (0.000-0.034) ng/mL 10/08/24 Range/Units 06:15 RBC (4.30-5.90) m/uL Hgb (13.0-17.5) gm/dL Hct (39.0-53.0) % RDW (11.5-15.5) % Plt Count (150-450) k/uL Lymphocytes # (1.0-4.8) k/uL PT (10.0-12.5) sec INR (<1.2) APTT (22.0-30.0) sec Sodium (137-145) mmol/L BUN (9-20) mg/dL Creatinine (0.66-1.25) mg/dL Glucose (74-99) mg/dL AST (17-59) U/L Troponin I 0.045 H* (0.000-0.034) ng/mL Thrombosis Risk Factor Assmnt - DVT/VTE Prophylaxis DVT/VTE Prophylaxis: Pharmacologic Prophylaxis ordered Assessment and Plan Assessment: Atypical chest pain mainly in the epigastric region Evaded troponin likely due to CKD Recent admission in August 2024 with cardiac arrest/PEA requiring CPR and i ntubation. Dilated cardiomyopathy ejection fraction 45% Coronary artery disease history of stent placement Chronic CHF with reduced ejection fraction Hypertension ESRD on hemodialysis Friday and Friday right upper extremity AV. Amyloidosis Left eye blindness due to diabetic nephropathy Moderate pulmonary hypertension Diabetes type 2 DVT prophylaxis heparin subcu and GI prophylaxis PPI Plan: Patient will be continued on telemonitoring. Serial EKG and troponin x 3. Continue with PPI. Patient was started back on aspirin, Coreg and Entresto as blood pressure. As tolerated tolerated. Cardiology and nephrology was consulted for evaluation. Continue to follow closely. Prognosis is guarded. Time with Patient: Greater than 30
[2024-10-08 23:21] VITALS: RESP 16
[2024-10-09 06:23] LABS: Glucose,Whole Blood 117 mg/dL (70-110)
[2024-10-09] MEDS: carvediloL 3.125 MG TAB PO SCH (06:42)
[2024-10-09] MEDS: SACUBITRIL/VALSARTAN 24 MG-26 MG TABLET PO SCH (08:27)
[2024-10-09 08:38] LABS: Anisocytosis Slight; Basophils % (A) 1 %; Eosinophils # (A) 0.1 k/uL (0-0.7); Eosinophils % (A) 2 %; HCT 32.2 % (39.0-53.0); HGB 10.2 gm/dL (13.0-17.5); Hypochromasia Slight; Lymphocytes # (A) 0.8 k/uL (1.0-4.8); Lymphocytes % (A) 17 %; MCH 31.8 pg (25.0-35.0); MCHC 31.7 g/dL (31.0-37.0); MCV 100.3 fL (80.0-100.0); Macrocytosis Slight; Mean Platelet Volume 10.8; Monocytes # (A) 0.4 k/uL (0-1.0); Monocytes % (A) 8 %; Neutrophils # (A) 3.4 k/uL (1.3-7.7); Neutrophils % (A) 71 %; Platelet Count 119 k/uL (150-450); RBC 3.21 m/uL (4.30-5.90); RDW 17.3 % (11.5-15.5); WBC 4.8 k/uL (3.8-10.6)
[2024-10-09 08:45] LABS: African American GFR (CKD) 12 (>60 ml/min/1.73 sqM); Anion Gap 6 mmol/L; Blood Urea Nitrogen 23 mg/dL (9-20); Calcium 8.6 mg/dL (8.4-10.2); Carbon Dioxide 31 mmol/L (22-30); Chloride 96 mmol/L (98-107); Glucose 144 mg/dL (74-99); Non-African American GFR(CKD) 10 (>60 ml/min/1.73 sqM); Potassium 3.9 mmol/L (3.5-5.1); Sodium 133 mmol/L (137-145)
--- NOTE | 2024-10-09 09:48 | P.PN ---
Subjective Patient is seen in follow-up for end-stage renal disease. He is maintained on hemodialysis on Friday schedule. No problems with dialysis yesterday. No chest pain or shortness of breath. Hemodynamically stable. Vital signs are stable. General: No acute distress. HEENT: Head exam is unremarkable. LUNGS: No audible rhonchi or wheezes. HEART: Rate and Rhythm are regular. ABDOMEN: Nontender. EXTREMITITES: No edema. Objective - Vital Signs Vital signs: Vital Signs Temp 98.4 F 10/09/24 08:00 Pulse 71 10/09/24 08:00 Resp 16 10/09/24 08:00 BP 150/72 10/09/24 08:00 Pulse Ox 97 10/09/24 08:00 FiO2 Intake & Output 10/08/24 10/09/24 10/09/24 18:59 06:59 18:59 Intake Total 500 Output Total 500 Balance 0 Weight 79.379 kg 77.3 kg Intake: Hemodialysis 500 Output: Hemodialysis 500 Hemodialysis Net Amount 0 Other: Voiding Method Toilet # Voids 0 0 - Labs CBC & Chem 7: 10/09/24 08:15 10/09/24 08:15 Labs: Abnormal Lab Results - Last 24 Hours (Table) 10/08/24 10/08/24 10/08/24 Range/Units 06:15 10:29 13:28 RBC (4.30-5.90) m/uL Hgb (13.0-17.5) gm/dL Hct (39.0-53.0) % MCV (80.0-100.0) fL RDW (11.5-15.5) % Plt Count (150-450) k/uL Lymphocytes # (1.0-4.8) k/uL Sodium (137-145) mmol/L Chloride (98-107) mmol/L Carbon Dioxide (22-30) mmol/L BUN (9-20) mg/dL Creatinine (0.66-1.25) mg/dL Glucose (74-99) mg/dL POC Glucose (mg/dL) 118 H (70-110) mg/dL Iron 39 L (65-175) UG/DL TIBC 192 L (228-460) UG/DL Transferrin 137.0 L (204.0-354.0) mg/dL Ferritin 1034.0 H (22.0-322.0) ng/mL Troponin I 0.036 H* (0.000-0.034) ng/mL 10/09/24 10/09/24 10/09/24 Range/Units 06:20 08:15 08:15 RBC 3.21 L (4.30-5.90) m/uL Hgb 10.2 L (13.0-17.5) gm/dL Hct 32.2 L (39.0-53.0) % MCV 100.3 H (80.0-100.0) fL RDW 17.3 H (11.5-15.5) % Plt Count 119 L (150-450) k/uL Lymphocytes # 0.8 L (1.0-4.8) k/uL Sodium 133 L (137-145) mmol/L Chloride 96 L (98-107) mmol/L Carbon Dioxide 31 H (22-30) mmol/L BUN 23 H (9-20) mg/dL Creatinine 6.08 H (0.66-1.25) mg/dL Glucose 144 H (74-99) mg/dL POC Glucose (mg/dL) 117 H (70-110) mg/dL Iron (65-175) UG/DL TIBC (228-460) UG/DL Transferrin (204.0-354.0) mg/dL Ferritin (22.0-322.0) ng/mL Troponin I (0.000-0.034) ng/mL Assessment and Plan Plan: Assessment: 1. End-stage renal disease maintained on hemodialysis on Friday schedule. 2. Chest pain with history of coronary artery disease. 3. Diabetes mellitus. 4. Hypertension with chronic kidney disease. Stable. 5. Anemia of chronic kidney disease. Iron deficiency noted. Plan: Hemodialysis Friday. IV iron x 1 dose today.
[2024-10-09] MEDS: SODIUM FERRIC GLUCONAT-SUCROSE 125 MG in SODIUM CHLORIDE 0.9% 100 ML IVPB ONE (11:07)
[2024-10-09 11:27] LABS: Glucose,Whole Blood 181 mg/dL (70-110)
[2024-10-09] MEDS ORDERED: amLODIPine 5 MG TAB PO SCH (13:00)
--- NOTE | 2024-10-09 13:08 | P.CRDCN ---
History of Present Illness Consult date: 10/09/24 History of present illness: HISTORY OF PRESENTING ILLNESS 44-year-old -[place] male who is known to Dr. Martines. He has past medical history of ESRD and has been on hemodialysis dependent since 2019. He also has dilated cardiomyopathy EF of 40%, amyloidosis, moderate to severe pulmonary hypertension, poorly controlled blood pressure. 2 weeks ago he was in the hospital because of concerns of nausea and vomiting after hemodialysis. Yesterday presented to the hospital because he was having substernal chest heaviness sensation. The symptoms resolved after he got him his hemodialysis yesterday evening. EKG shows sinus rhythm, heart rate 67 bpm, no significant ST-T wave changes that are concerning for ischemia, mild LVH REVIEW OF SYSTEMS 14 point review of system is negative except what is mentioned above in HPI. PHYSICAL EXAMINATION Vital signs reviewed. Head: Normocephalic. Eyes: Sclerae nonicteric. Neck: Brisk carotid upstroke, no jugular venous distention. Lungs: Mild crackles audible Heart: Regular rate and rhythm, S1-S2, mild systolic murmur Abdomen: Soft nontender, positive bowel sounds. Extremities: 1+ in bilateral lower extremity edema, intact distal pulses. Right upper extremity AV fistula, normal bruit, Neuro: Alert, oritented, no focal deficits. Detailed neuro exam was not performed. ASSESSMENT Substernal chest pressure Elevated troponin with a downtrending pattern consistent with poor renal clearance Elevated cardiomyopathy EF of 40% Amyloidosis Moderate to severe pulmonary hypertension ESRD on hemodialysis Type 2 diabetes Essential hypertension PLAN I feel this chest pain could be related to his elevated blood pressure. I would recommend him to maintain a close monitoring of his blood pressure at home. Maintain a blood pressure log and show to the cardiology office or nephrology office Will add Lipitor 40 mg daily, Imdur 30 mg daily. At home he is on a weeklong clonidine patch, hydralazine, Procardia XL, Entresto, Coreg. I will continue this medication without any changes. At this time he is symptom-free and is very eager to go home. He is scheduled for an outpatient cardiac catheterization in early part of April. Follow-up with cardiology office on outpatient basis. Patient is cleared from cardiac standpoint. Detail instructions given. Romaine Cole MD, FACC, RPVI Thank you for allowing [facility] to participate in this patient's care. Feel free to reach out in case of any followup questions. Past Medical History Past Medical History: Coronary Artery Disease (CAD), Heart Failure, Eye Disorder, GERD/Reflux, Hyperlipidemia, Hypertension, Myocardial Infarction ([place]), Renal Disease, Respiratory Disorder Additional Past Medical History / Comment(s): Pt recently admitted to [facility] on 05/09/20 with acute on chronic CHF/amyloidosis with generalized anasarca/acute on chronic kidney injury/acute anemia/advanced CAD/valvular disease/severe pulmonary htn/abnormal liver test/hyperlipidemia. Other hx: IDDM type II, pt states informed he had kidney disease in Feb, 2020 then ESRD diagnosed 05/09/20 w ith hemodialysis M/W/F,neuropathy bilateral feet, L foot ulcer with debridements, L eye blindness d/t diabetic retinopathy, ischemic cardiomyopathy, anasarca/lower leg edema. Last Myocardial Infarction Date:: 03/30/2018 History of Any Multi-Drug Resistant Organisms: None Reported Past Surgical History: Heart Catheterization With Stent Additional Past Surgical History / Comment(s): 05/17/20 R subclavian hemodialysis catheter, debridements L foot wound, R eye surgery-pt believes to remove cataract, SEAN fistula Past Anesthesia/Blood Transfusion Reactions: No Reported Reaction Additional Past Anesthesia/Blood Transfusion Reaction / Comment(s): During 3rd debridement L foot ulcer Date of Last Stent Placement:: 03/31/2018 Past Psychological History: No Psychological Hx Reported Smoking Status: Never smoker Past Alcohol Use History: None Reported Past Drug Use History: None Reported - Past Family History Mother Family Medical History: Diabetes Mellitus, Hyperlipidemia, Hypertension Father Family Medical History: Diabetes Mellitus, Hypertension Medications and Allergies Home Medications Medication Instructions Recorded Confirmed Type Nitroglycerin Sl Tabs [Nitrostat] 0.4 mg SL Q5M PRN 05/09/20 10/08/24 History Sacubitril/Valsartan [Entresto 24 1 tab PO BID 06/16/24 10/08/24 History mg-26 mg Tablet] Aspirin 81 mg PO DAILY #30 tab 06/17/24 10/08/24 Rx Pantoprazole Sodium [Protonix] 20 mg PO DAILY 08/28/24 10/08/24 History carvediloL [Coreg] 50 mg PO BID-W/MEALS 08/28/24 10/08/24 History cloNIDine 0.3 MG/24HR PATCH 1 patch TRANSDERM REDD 08/28/24 10/08/24 History [Catapres-TTS] Cholestyramine (with Sugar) 4 gm PO TID BETWEEN MEALS 7 Days 09/02/24 10/08/24 Rx [Questran Packet] #21 packet NIFEdipine XL [Procardia XL] 30 mg PO DAILY #30 tab 09/21/24 10/08/24 Rx NIFEdipine XL [Procardia XL] 90 mg PO HS #30 tab 09/21/24 10/08/24 Rx hydrALAZINE HCL [Apresoline] 100 mg PO TID-W/MEALS 10/08/24 10/08/24 History Allergies Allergy/AdvReac Type Severity Reaction Status Date / Time nickel Allergy Rash/Hives Verified 10/08/24 05:21 Physical Exam Vitals: Vital Signs Temp Pulse Pulse Resp BP BP Pulse Ox 10/09/24 11:46 98.4 F 70 16 162/69 97 10/09/24 08:00 98.4 F 71 16 150/72 97 10/09/24 04:00 98.4 F 67 16 121/59 100 10/09/24 01:12 69 16 10/08/24 23:19 97.7 F 69 16 121/59 100 10/08/24 20:24 98.6 F 64 18 109/53 10/08/24 20:15 64 18 126/66 96 10/08/24 19:00 61 20 121/67 99 10/08/24 18:30 61 20 113/64 10/08/24 18:00 59 L 18 103/59 10/08/24 17:30 59 L 18 90/60 10/08/24 17:00 58 L 18 96/52 10/08/24 16:45 56 L 85/50 10/08/24 13:41 98.1 F 64 18 105/68 98 Intake and Output 10/08/24 10/09/24 10/09/24 22:59 06:59 14:59 Intake Total 500 Output Total 500 0 Balance 0 0 Intake: Hemodialysis 500 Output: Gastric Drainage 0 Urine 0 Stool 0 Urine/Stool Mix 0 Emesis 0 Oral Regurgitation 0 Hemodialysis 500 Hemodialysis Net Amount 0 Other 0 Other: Voiding Method Toilet Toilet # Voids 0 0 # Bowel Movements 0 Weight 77.3 kg Results 10/09/24 08:15 12/21/24 08:15 Cardiac Enzymes 10/09/24 Range/Units 08:15 Troponin I 0.024 (0.000-0.034) ng/mL CBC 10/09/24 Range/Units 08:15 WBC 4.8 (3.8-10.6) k/uL RBC 3.21 L (4.30-5.90) m/uL Hgb 10.2 L (13.0-17.5) gm/dL Hct 32.2 L (39.0-53.0) % Plt Count 119 L (150-450) k/uL Comprehensive Metabolic Panel 10/09/24 Range/Units 08:15 Sodium 133 L (137-145) mmol/L Potassium 3.9 (3.5-5.1) mmol/L Chloride 96 L (98-107) mmol/L Carbon Dioxide 31 H (22-30) mmol/L BUN 23 H (9-20) mg/dL Creatinine 6.08 H (0.66-1.25) mg/dL Glucose 144 H (74-99) mg/dL Calcium 8.6 (8.4-10.2) mg/dL Current Medications Generic Name Dose Route Start Last Admin Trade Name Freq PRN Reason Stop Dose Admin Aspirin 81 mg 10/08/24 10:45 10/09/24 08:27 Aspirin 81 Mg PO 81 mg DAILY KATHERINE Administration Atorvastatin Calcium 40 mg 10/09/24 21:00 Atorvastatin 40 Mg Tab PO HS KATHERINE Carvedilol 50 mg 10/09/24 17:30 Carvedilol 3.125 Mg Tab PO BID-W/MEALS [facility] Cholestyramine Resin 4 gm 10/08/24 15:00 10/09/24 08:27 Cholestyramine (With Sugar) 4 Gm Packet PO 4 gm TID BETWEEN MEALS KATHERINE Administration Heparin Sodium (Porcine) 5,000 unit 10/08/24 16:00 10/09/24 08:27 Heparin Sodium,Porcine 5,000 Unit/Ml 1 Ml Vial SQ 5,000 unit Q8HR KATHERINE Administration Hydralazine HCl 100 mg 10/09/24 13:15 Hydralazine Hcl 50 Mg Tab PO TID-W/MEALS [facility] Isosorbide Mononitrate 30 mg 10/09/24 13:15 Isosorbide Mononitrate Er 30 Mg Tab.Er.24h PO DAILY [facility] Midodrine 10 mg 10/08/24 16:58 10/08/24 17:30 Midodrine 5 Mg Tab PO 10 mg AC-TID PRN Administration systolic BP<90 Morphine Sulfate 4 mg 10/08/24 08:36 Morphine Sulfate 4 Mg/Ml Syringe IV Q4HR PRN Severe Pain (Scale 7 to 10) Naloxone HCl 0.2 mg 10/08/24 08:36 Naloxone 0.4 Mg/Ml 1 Ml Vial IV Q2M PRN Opioid Reversal Nifedipine 30 mg 10/09/24 13:15 Nifedipine Xl 30 Mg Tab.Er.24 PO DAILY [facility] Nifedipine 90 mg 10/09/24 21:00 Nifedipine Xl 90 Mg Tab.Er.24 PO HS [facility] Ondansetron HCl 4 mg 10/08/24 08:36 Ondansetron 4 Mg/2 Ml Vial IVP Q8HR PRN Nausea And Vomiting Pantoprazole Sodium 40 mg 10/08/24 10:45 10/09/24 06:42 Pantoprazole 40 Mg Tablet PO 40 mg [id number] KATHERINE Administration Sacubitril/Valsartan 1 each 10/09/24 09:00 10/09/24 08:27 Sacubitril/Valsartan 24 Mg-26 Mg Tablet PO 1 each BID KATHERINE Administration Intake and Output 10/08/24 10/09/24 10/09/24 22:59 06:59 14:59 Intake Total 500 Output Total 500 0 Balance 0 0 Intake: Hemodialysis 500 Output: Gastric Drainage 0 Urine 0 Stool 0 Urine/Stool Mix 0 Emesis 0 Oral Regurgitation 0 Hemodialysis 500 Hemodialysis Net Amount 0 Other 0 Other: Voiding Method Toilet Toilet # Voids 0 0 # Bowel Movements 0 Weight 77.3 kg 10/09/24 08:15 10/09/24 08:15
[2024-10-09] MEDS: ISOSORBIDE MONONITRATE ER 30 MG TAB.ER.24H PO SCH (13:12)
[2024-10-09] MEDS: hydrALAZINE HCL 50 MG TAB PO SCH (13:12)
[2024-10-09] MEDS: NIFEdipine XL 30 MG TAB.ER.24 PO SCH (13:12)
[2024-10-09 15:44] VITALS: BP 169/86; PULSE 73; TEMP 98.1
[2024-10-09] MEDS ORDERED: carvediloL 3.125 MG TAB PO SCH ×2 (17:30)
[2024-10-09] MEDS ORDERED: carvediloL 12.5 MG TAB PO SCH ×2 (17:30→21:00)
[2024-10-09] MEDS ORDERED: NIFEdipine XL 90 MG TAB.ER.24 PO SCH (21:00)
[2024-10-09] MEDS ORDERED: ATORVASTATIN 40 MG TAB PO SCH (21:00)
== END 2024-10-09 17:57 | disposition home or self-care (01) ==
LOC: EC 05:16 → 3SCARD 09:30
PROVIDERS: ADMIT Internal Medicine; ATTEND Internal Medicine
DX: R07.89 Other chest pain (principal); I50.22 Chronic systolic (congestive) heart failure; I42.0 Dilated cardiomyopathy; I27.20 Pulmonary hypertension, unspecified; I13.2 Hypertensive heart and chronic kidney disease with heart failure and with stage 5 chronic kidney disease, or end stage renal disease; E11.22 Type 2 diabetes mellitus with diabetic chronic kidney disease; E11.39 Type 2 diabetes mellitus with other diabetic ophthalmic complication; E11.40 Type 2 diabetes mellitus with diabetic neuropathy, unspecified; N18.6 End stage renal disease; E85.9 Amyloidosis, unspecified; D63.1 Anemia in chronic kidney disease; E61.1 Iron deficiency; E78.5 Hyperlipidemia, unspecified; I25.10 Atherosclerotic heart disease of native coronary artery without angina pectoris; I25.2 Old myocardial infarction; H54.62 Unqualified visual loss, left eye, normal vision right eye; L23.0 Allergic contact dermatitis due to metals; R11.0 Nausea; Z99.2 Dependence on renal dialysis; Z79.4 Long term (current) use of insulin; Z79.82 Long term (current) use of aspirin; Z79.899 Other long term (current) drug therapy; Z86.74 Personal history of sudden cardiac arrest; Z95.5 Presence of coronary angioplasty implant and graft; Z82.49 Family history of ischemic heart disease and other diseases of the circulatory system; Z83.3 Family history of diabetes mellitus
CPT/HCPCS: 96365; 96372 ×3; 99285; 36415; 93005; 83880; 80053; 80048; 82728; 83540; 83550; 83735; 84484 ×2; 85025 ×2; 85610; 85730; 71046; G0378 ×2; J1644 ×2; J2916; 90935

== ENCOUNTER 2024-10-21 08:37 | Emergency (ER) | payer MEDICARE ==
--- NOTE | 2024-10-21 10:09 | ED ---
General Adult HPI - General Chief complaint: Nausea/Vomiting/Diarrhea Stated complaint: Flu symptoms Time Seen by Provider: 10/21/24 09:38 Source: patient, RN notes reviewed Mode of arrival: ambulatory Limitations: no limitations - History of Present Illness Initial comments: This is a 44-year-old male with a history of diabetes on insulin, coronary artery disease, hypertension, chronic kidney disease on hemodialysis Friday//Friday presenting to the emergency department from dialysis for complaint of flulike symptoms. Patient states that over the past few days he has been experiencing bodyaches, nausea, vomiting, cough and rhinorrhea. Ad ditionally, states that he has been experiencing intermittent chills with no reported fevers. He denies emesis, urinary or bowel habit changes, shortness of breath or difficulty breathing. States that he has been experiencing mild chest pain that is associated with coughing. - Related Data Home Medications Medication Instructions Recorded Confirmed Nitroglycerin Sl Tabs [Nitrostat] 0.4 mg SL Q5M PRN 05/09/20 10/08/24 Sacubitril/Valsartan [Entresto 24 1 tab PO BID 06/16/24 10/08/24 mg-26 mg Tablet] carvediloL [Coreg] 50 mg PO BID-W/MEALS 08/28/24 10/08/24 cloNIDine 0.3 MG/24HR PATCH 1 patch TRANSDERM REDD 08/28/24 10/08/24 [Catapres-TTS] hydrALAZINE HCL [Apresoline] 100 mg PO TID-W/MEALS 10/08/24 10/08/24 Previous Rx's Medication Instructions Recorded Aspirin 81 mg PO DAILY #30 tab 06/17/24 Cholestyramine (with Sugar) 4 gm PO TID BETWEEN MEALS 7 Days 09/02/24 [Questran Packet] #21 packet NIFEdipine XL [Procardia XL] 30 mg PO DAILY #30 tab 09/21/24 NIFEdipine XL [Procardia XL] 90 mg PO HS #30 tab 09/21/24 Atorvastatin [Lipitor] 40 mg PO HS #30 tab 10/09/24 Isosorbide Mononitrate ER [Imdur] 30 mg PO DAILY #30 tab 10/09/24 Pantoprazole [Protonix] 40 mg PO AC-BRKFST #30 tab 12/21/24 Allergies Allergy/AdvReac Type Severity Reaction Status Date / Time nickel Allergy Rash/Hives Verified 10/21/24 09:02 Review of Systems ROS Statement: Those systems with pertinent positive or pertinent negative responses have been documented in the HPI. ROS Other: All systems not noted in ROS Statement are negative. Past Medical History Past Medical History: Coronary Artery Disease (CAD), Heart Failure, Eye Disorder, GERD/Reflux, Hyperlipidemia, Hypertension, Myocardial Infarction ([place]), Renal Disease, Respiratory Disorder Additional Past Medical History / Comment(s): Pt recently admitted to [facility] on 05/09/20 with acute on chronic CHF/amyloidosis with generalized anasarca/acute on chronic kidney injury/acute anemia/advanced CAD/valvular disease/severe pulmonary htn/abnormal liver test/hyperlipidemia. Other hx: IDDM type II, pt states informed he had kidney disease in Feb, 2020 then ESRD diagnosed 05/09/20 with hemodialysis M/W/F,neuropathy bilateral feet, L foot ulcer with debridements, L eye blindness d/t diabetic retinopathy, ischemic cardiomyopathy, anasarca/lower leg edema. Last Myocardial Infarction Date:: 03/30/2018 History of Any Multi-Drug Resistant Organisms: None Reported Past Surgical History: Heart Catheterization With Stent Additional Past Surgical History / Comment(s): 05/17/20 R subclavian hemodialysis catheter, debridements L foot wound, R eye surgery-pt believes to remove cataract, SEAN fistula Past Anesthesia/Blood Transfusion Reactions: No Reported Reaction Additional Past Anesthesia/Blood Transfusion Reaction / Comment(s): During 3rd debridement L foot ulcer Date of Last Stent Placement:: 03/31/2018 Past Psychological History: No Psychological Hx Reported Smoking Status: Never smoker Past Alcohol Use History: None Reported Past Drug Use History: None Reported - Past Family History Mother Family Medical History: Diabetes Mellitus, Hyperlipidemia, Hypertension Father Family Medical History: Diabetes Mellitus, Hypertension General Exam Limitations: no limitations Eye exam: Present: normal appearance, PERRL, EOMI. Absent: scleral icterus, co njunctival injection, periorbital swelling Neck exam: Present: normal inspection. Absent: tenderness, meningismus, lymphadenopathy Respiratory exam: Present: normal lung sounds bilaterally. Absent: respiratory distress, wheezes, rales, rhonchi, stridor Cardiovascular Exam: Present: regular rate, normal rhythm, normal heart sounds. Absent: systolic murmur, diastolic murmur, rubs, gallop, clicks GI/Abdominal exam: Present: soft, normal bowel sounds. Absent: distended, tenderness, guarding, rebound, rigid Extremities exam: Present: normal inspection, full ROM, normal capillary refill. Absent: tenderness, pedal edema, joint swelling, calf tenderness Back exam: Present: normal inspection Skin exam: Present: warm, dry, intact, normal color. Absent: rash Course Vital Signs 10/21/24 10/21/24 10/21/24 09:00 10:47 11:46 Temperature 99.1 F 101.4 F H 100.9 F H Pulse Rate 72 75 76 Respiratory 18 20 18 Rate Blood Pressure 116/67 O2 Sat by Pulse 98 96 92 L Oximetry Medical Decision Making - Medical Decision Making Was pt. sent in by a medical professional or institution (, PA, [employer], urgent c are, hospital, or [place] health care facility...) When possible be specific @ -No Did you speak to anyone other than the patient for history (EMS, parent, family, police, friend...)? What history was obtained from this source @ -No Did you review nursing and triage notes (agree or disagree)? Why? @ -I reviewed and agree with nursing and triage notes Were old charts reviewed (outside hosp., previous admission, EMS record, old EKG, old radiological studies, urgent care reports/EKG's, [place] health care facility records)? Report findings @ -No old charts were reviewed Differential Diagnosis (chest pain, altered mental status, abdominal pain women, abdominal pain men, vaginal bleeding, weakness, fever, dyspnea, syncope, h eadache, dizziness, GI bleed, back pain, seizure, CVA, palpatations, mental health, musculoskeletal)? @ -COVID 19, RSV, influenza, pneumonia, acute bronchitis, URI, this list is not all inclusive EKG interpreted by me (3pts min.). @ -Completed at 1054 sinus rhythm with a ventricular to 74, MI interval 170, QRS 101, QTc 398. X-rays interpreted by me (1pt min.). @ -Chest x-ray remarkable for a moderate left wrist cardiac silhouette with mild pulmonary vascular congestion. CT interpreted by me (1pt min.). @ -None done U/S interpreted by me (1pt. min.). @ -None done What testing was considered but not performed or refused? (CT, X-rays, U/S, labs)? Why? @ -None What meds were considered but not given or refused? Why? @ -None Did you discuss the management of the patient with other professionals (professionals i.e. , PA, [employer], lab, RT, psych nurse, social media strategist, prototype engineer manager, teacher, intelligence support officer, nurse case management)? Give summary @ -No Was smoking cessation discussed for >3mins.? @ -No Was critical care preformed (if so, how long)? @ -No Were there social determinants of health that impacted care today? How? (Homelessness, low income, unemployed, alcoholism, drug addiction, transportation, low edu. Level, literacy, decrease access to med. care, alf, rehab)? @ -No Was there de-escalation of care discussed even if they declined (Discuss DNR or withdrawal of care, Hospice)? DNR status @ -No What co-morbidities impacted this encounter? (DM, HTN, Smoking, COPD, CAD, Ca ncer, CVA, ARF, Chemo, Hep., AIDS, mental health diagnosis, sleep apnea, morbid obesity)? @ -None Was patient admitted / discharged? Hospital course, mention meds given and route, prescriptions, significant lab abnormalities, going to OR and other pertinent info. @ -Discharge. 44-year-old male presenting with URI symptoms. On arrival to emergency department patient noted to be febrile with a temperature of 101.4. Patient is provided with dose of Tylenol. Labs remarkable for leukocytosis 16.7, anemia that appears chronic with a hemoglobin 9.4, hematocrit 29.2. Patient's creatinine is elevated 10.68 which is chronic for the patient secondary to end-stage renal disease. Patient is tested positive for RSV. Chest x-ray mild pulmonary vascular congestion. Patient's temperature is desponded well to Tylenol. Recommend continue supportive treatment at home. Patient states that he has a appointment for dialysis tomorrow. Recommend patient has follow-up with primary care provider in the next week for further evaluation. All questions have been answered at bedside and strict return parameters have discussed with the patient he is verbalized understanding. Case discussed with Dr. Galan Undiagnosed new problem with uncertain prognosis? @ -No Drug Therapy requiring intensive monitoring for toxicity (Heparin, Nitro, Insulin, Cardizem)? @ -No Were any procedures done? @ -No Diagnosis/symptom? @ -RSV Acute, or Chronic, or Acute on Chronic? @ -Acute Uncomplicated (without systemic symptoms) or Complicated (systemic symptoms)? @ -Uncomplicated Side effects of treatment? @ -No Exacerbation, Progression, or Severe Exacerbation? @ -No Poses a threat to life or bodily function? How? (Chest pain, [place], [place], pneumonia, PE, COPD, DKA, ARF, appy, cholecystitis, CVA, Diverticulitis, Homicidal, Suicidal, threat to staff... and all critical care pts) @ -No - Lab Data Result diagrams: 10/21/24 10:54 10/21/24 10:54 Lab Results 10/21/24 10/21/24 10/21/24 Range/Units 09:49 10:54 10:54 WBC 16.7 H (3.8-10.6) k/uL RBC 3.04 L (4.30-5.90) m/uL Hgb 9.4 L (13.0-17.5) gm/dL Hct 29.2 L (39.0-53.0) % MCV 96.3 (80.0-100.0) fL MCH 31.0 (25.0-35.0) pg MCHC 32.2 (31.0-37.0) g/dL RDW 17.1 H (11.5-15.5) % Plt Count 91 L (150-450) k/uL MPV 10.2 Neutrophils % 91 % Lymphocytes % 4 % Monocytes % 5 % Eosinophils % 0 % Basophils % 0 % Neutrophils # 15.1 H (1.3-7.7) k/uL Lymphocytes # 0.6 L (1.0-4.8) k/uL Monocytes # 0.7 (0-1.0) k/uL Eosinophils # 0.0 (0-0.7) k/uL Basophils # 0.0 (0-0.2) k/uL Manual Slide Review Performed Hypochromasia Slight Anisocytosis Slight Target Cells Present Sodium 136 L (137-145) mmol/L Potassium 5.1 (3.5-5.1) mmol/L Chloride 99 (98-107) mmol/L Carbon Dioxide 19 L (22-30) mmol/L Anion Gap 18 mmol/L BUN 51 H (9-20) mg/dL Creatinine 10.68 H* (0.66-1.25) mg/dL Est GFR (CKD-EPI)AfAm 6 (>60 ml/min/1.73 sqM) Est GFR (CKD-EPI)NonAf 5 (>60 ml/min/1.73 sqM) Glucose 167 H (74-99) mg/dL Calcium 9.2 (8.4-10.2) mg/dL Phosphorus 4.1 (2.5-4.5) mg/dL Magnesium 2.0 (1.6-2.3) mg/dL Total Bilirubin 1.1 (0.2-1.3) mg/dL AST 20 (17-59) U/L ALT 13 (4-49) U/L Alkaline Phosphatase 95 (38-126) U/L Total Protein 6.9 (6.3-8.2) g/dL Albumin 3.8 (3.5-5.0) g/dL Lipase 32 (23-300) U/L Influenza Type A (PCR) Not Detected (Not Detectd) Influenza Type B (PCR) Not Detected (Not Detectd) RSV (PCR) Detected A (Not Detectd) SARS-CoV-2 (PCR) Not Detected (Not Detectd) Disposition Clinical Impression: RSV (respiratory syncytial virus infection) Disposition: HOME SELF-CARE Condition: Stable Instructions (If sedation given, give patient instructions): Respiratory Syncytial Virus (ED) Additional Instructions: Please return to the Emergency Department if symptoms worsen or any other concerns. Is patient prescribed a controlled substance at d/c from ED?: No Referrals: Jj Galindo MD [Primary Care Provider] - 1-2 days Time of Disposition: 12:37
--- NOTE | 2024-10-21 10:48 | XR ---
EXAMINATION TYPE: XR chest 2V DATE OF EXAM: 10/21/2024 10:39 AM COMPARISON: 10/08/2024 CLINICAL INDICATION: Male, 44 years old with history of cough, fever, congestion, , TECHNIQUE: AP and lateral views FINDINGS: Cardiac/pericardiac silhouette moderately enlarged. Mild perihilar densities. No dayday consolidation or pleural effusion. IMPRESSION: Moderate enlargement of the cardiac/pericardiac silhouette and possible mild pulmonary vascular conge stion. [facility], , 10/21/2024 10:45 AM
[2024-10-21 11:07] LABS: Anisocytosis Slight; Basophils % (A) 0 %; Eosinophils % (A) 0 %; HCT 29.2 % (39.0-53.0); HGB 9.4 gm/dL (13.0-17.5); Hypochromasia Slight; Lymphocytes # (A) 0.6 k/uL (1.0-4.8); Lymphocytes % (A) 4 %; MCHC 32.2 g/dL (31.0-37.0); MCV 96.3 fL (80.0-100.0); Mean Platelet Volume 10.2; Monocytes # (A) 0.7 k/uL (0-1.0); Monocytes % (A) 5 %; Neutrophils # (A) 15.1 k/uL (1.3-7.7); Neutrophils % (A) 91 %; RBC 3.04 m/uL (4.30-5.90); RDW 17.1 % (11.5-15.5); WBC 16.7 k/uL (3.8-10.6)
[2024-10-21] MEDS: ACETAMINOPHEN TAB 500 MG TAB PO STA (11:07)
[2024-10-21 11:29] LABS: ALT 13 U/L (4-49); AST 20 U/L (17-59); African American GFR (CKD) 6 (>60 ml/min/1.73 sqM); Albumin 3.8 g/dL (3.5-5.0); Alkaline Phosphatase 95 U/L (38-126); Anion Gap 18 mmol/L; Blood Urea Nitrogen 51 mg/dL (9-20); Calcium 9.2 mg/dL (8.4-10.2); Carbon Dioxide 19 mmol/L (22-30); Chloride 99 mmol/L (98-107); Glucose 167 mg/dL (74-99); Lipase 32 U/L (23-300); Non-African American GFR(CKD) 5 (>60 ml/min/1.73 sqM); Phosphorus 4.1 mg/dL (2.5-4.5); Potassium 5.1 mmol/L (3.5-5.1); Sodium 136 mmol/L (137-145); Total Bilirubin 1.1 mg/dL (0.2-1.3); Total Protein 6.9 g/dL (6.3-8.2)
[2024-10-21 11:46] VITALS: RESP 18
[2024-10-21 12:41] LABS: Platelet Count 91 k/uL (150-450)
[2024-10-21 12:42] LABS: Target Cells Present
[2024-10-21 15:12] VITALS: BP 103/57; PULSE 67; TEMP 99.9
== END 2024-10-21 15:11 | disposition home or self-care (01) ==
LOC: EC 08:37
DX: B97.4 Respiratory syncytial virus as the cause of diseases classified elsewhere (principal); Z88.8 Allergy status to other drugs, medicaments and biological substances
CPT/HCPCS: 36415; 71046; 80053; 83690; 83735; 84100; 85025; 87636; 93005; 99284

== ENCOUNTER 2024-12-16 09:07 | Inpatient (IN) | payer MEDICARE ==
[2024-12-16 09:26] LABS: Glucose,Whole Blood 161 mg/dL (70-110)
--- NOTE | 2024-12-16 09:47 | XR ---
EXAMINATION TYPE: XR chest 2V DATE OF EXAM: 12/16/2024 9:37 AM COMPARISON: Chest x-ray November 18, 2024. CLINICAL INDICATION: Male, 44 years old with history of altered mental status, weakness. TECHNIQUE: Frontal and lateral views of the chest are obtained. FINDINGS: Stable large bore right internal jugular catheter. Persistent cardiomegaly with moderate b ilateral central opacities or edema.. The osseous structures are intact. Surgical clips in the righ t axilla are redemonstrated. IMPRESSION: Findings are consistent with CHF exacerbation/fluid overload state. Correlate clinically. [facility], , 12/16/2024 9:45 AM
--- NOTE | 2024-12-16 09:54 | CT ---
EXAMINATION TYPE: CT brain wo con DATE OF EXAM: 12/16/2024 COMPARISON: CT brain October 24, 2024 HISTORY: AMS, Confusion CT DLP: 1095.9 mGycm. Automated Exposure Control for Dose Reduction was Utilized. TECHNIQUE: CT scan of the head is performed without contrast. FINDINGS: There is no acute intracranial hemorrhage, mass effect, or midline shift identified. The ventricles and sulci are within normal limits in size. Focal area of low attenuation right frontal p eriventricular white matter axial image 28 is redemonstrated. Left lobe deformity with hyperdensity i s redemonstrated. Paranasal sinuses remain clear. IMPRESSION: No acute intracranial hemorrhage or midline shift is seen. Stable mild nonspecific white matter changes. Nonemergent MRI may be performed to better evaluate and characterize. [facility], , 12/16/2024 9:51 AM
[2024-12-16 10:19] LABS: Anisocytosis Slight; Basophils % (A) 0 %; Eosinophils # (A) 0.1 k/uL (0-0.7); Eosinophils % (A) 1 %; HCT 30.2 % (39.0-53.0); Hypochromasia Moderate; Lymphocytes # (A) 0.8 k/uL (1.0-4.8); Lymphocytes % (A) 12 %; MCH 29.7 pg (25.0-35.0); MCHC 29.8 g/dL (31.0-37.0); MCV 99.7 fL (80.0-100.0); Macrocytosis Slight; Mean Platelet Volume 10.3; Monocytes # (A) 0.3 k/uL (0-1.0); Monocytes % (A) 5 %; Neutrophils # (A) 5.4 k/uL (1.3-7.7); Neutrophils % (A) 81 %; RBC 3.03 m/uL (4.30-5.90); RDW 16.1 % (11.5-15.5); WBC 6.6 k/uL (3.8-10.6)
[2024-12-16 10:26] LABS: INR 1.2 (<1.2); Partial Thromboplastin Time 30.1 sec (22.0-30.0); Prothrombin Time 13.2 sec (10.0-12.5)
[2024-12-16 10:27] LABS: ALT 38 U/L (4-49); Acetaminophen <10.0 ug/mL; African American GFR (CKD) 14 (>60 ml/min/1.73 sqM); Albumin 3.8 g/dL (3.5-5.0); Alcohol <10 mg/dL; Anion Gap 12 mmol/L; Blood Urea Nitrogen 33 mg/dL (9-20); Calcium 9.5 mg/dL (8.4-10.2); Carbon Dioxide 27 mmol/L (22-30); Chloride 96 mmol/L (98-107); Glucose 158 mg/dL (74-99); Non-African American GFR(CKD) 12 (>60 ml/min/1.73 sqM); Platelet Count 149 k/uL (150-450); Salicylate <1.0 mg/dL; Sodium 135 mmol/L (137-145); Total Protein 8.3 g/dL (6.3-8.2)
[2024-12-16 10:31] LABS: AST 57 U/L (17-59)
[2024-12-16 10:32] LABS: Alkaline Phosphatase 286 U/L (38-126); Magnesium 2.1 mg/dL (1.6-2.3)
--- NOTE | 2024-12-16 11:26 | ED ---
General Adult HPI - General Chief complaint: Neuro Symptoms/Deficit Stated complaint: confusion Time Seen by Provider: 12/16/24 09:10 Source: EMS Mode of arrival: EMS Limitations: altered mental status - History of Present Illness Initial comments: 44-year-old male with past medical history of end-stage renal disease on hemodialysis Friday, Friday, Friday, htn who presents to the emergency department with altered mental status. is at bedside and provides a history. States that the patient went to dialysis yesterday and got home. Since 11 AM yesterday the patient has been confused. States the patient is typically ANO x 3 however at this point the patient does not know the day of the week and he did not know his 's name. He did admit that he took one of his mother's [place]'s and muscle relaxers "on accident". states that he did not take his own home medications last night due to his confusion. Blood pressure was running high this morning. She called EMS. No report of any fevers. Patient did have cardiac arrest last month and was hospitalized for greater than a month. He was supposed to follow-up today with his vascular team to assess his right upper extremity as it still has lan in it. Patient is receiving his dialysis through his right chest wall catheter. also reports that he is still receiving antibiotics for pneumonia with sepsis. No falls. No other alleviating, precipitating or modifying factors - Related Data Home Medications Medication Instructions Recorded Confirmed Nitroglycerin Sl Tabs [Nitrostat] 0.4 mg SL Q5M PRN 05/09/20 12/16/24 carvediloL [Coreg] 50 mg PO BID-W/MEALS 08/28/24 12/16/24 cloNIDine 0.3 MG/24HR PATCH 1 patch TRANSDERM WEEKLY 08/28/24 12/16/24 [Catapres-TTS] Cyclobenzaprine [Flexeril] 5 mg PO TID PRN 12/16/24 12/16/24 DAPTOmycin [Cubicin] 800 mg IVPB MOWEFR 12/16/24 12/17/24 Isosorbide Dinitrate [Isordil] 10 mg PO TID 12/16/24 12/16/24 Pantoprazole [Protonix] 40 mg PO DAILY PRN 12/16/24 12/16/24 Sennosides [Senokot] 8.6 mg PO BID PRN 12/16/24 12/16/24 hydrALAZINE HCL [Apresoline] 50 mg PO QID PRN 12/16/24 12/16/24 Methoxy Peg-Epoetin Beta [Mircera] 100 mcg IV Q14D 12/17/24 12/17/24 Previous Rx's Medication Instructions Recorded Aspirin 81 mg PO DAILY #30 tab 06/17/24 Calcium Carbonate [Tums] 1,000 mg PO Q4HR PRN tab 11/24/24 Mag Hydrox/Al Hydrox/Simeth 15 ml PO Q6HR PRN ml 11/24/24 [Maalox] Midodrine [ProAmatine] 5 mg PO DAILY PRN #30 tab 11/24/24 Torsemide [Demadex] 40 mg PO DAILY #30 tab 11/24/24 amLODIPine [Norvasc] 10 mg PO DAILY #30 tab 11/24/24 Allergies Allergy/AdvReac Type Severity Reaction Status Date / Time nickel Allergy Rash/Hives Verified 12/16/24 10:46 Review of Systems ROS Statement: Those systems with pertinent positive or pertinent negative responses have been documented in the HPI. ROS Other: All systems not noted in ROS Statement are negative. Past Medical History Past Medical History: Coronary Artery Disease (CAD), Heart Failure, Eye Disorder, GERD/Reflux, Hyperlipidemia, Hypertension, Myocardial Infarction (GA), Renal Disease, Respiratory Disorder Additional Past Medical History / Comment(s): chronic kidney injury/acute anemia/advanced CAD/valvular disease/severe pulmonary htn/abnormal liver test/hyperlipidemia. Other hx: IDDM type II, pt states informed he had kidney disease in Feb, 2020 then ESRD diagnosed 05/09/20 with hemodialysis M/W/F,neuropathy bilateral feet, L foot ulcer with debridements, L eye blindness d/t diabetic retinopathy, ischemic cardiomyopathy, anasarca/lower leg edema. Last Myocardial Infarction Date:: 03/30/2018 History of Any Multi-Drug Resistant Organisms: None Reported Date of last positivie culture/infection: 10/31/24 MDRO Source:: blood, sputum Past Surgical History: Heart Catheterization With Stent Additional Past Surgical History / Comment(s): 05/17/20 R subclavian hemodialysis catheter, debridements L foot wound, R eye surgery-pt believes to remove cataract, SEAN fistula Past Anesthesia/Blood Transfusion Reactions: No Reported Reaction Additional Past Anesthesia/Blood Transfusion Reaction / Comment(s): During 3rd debridement L foot ulcer Date of Last Stent Placement:: 03/31/2018 Past Psychological History: No Psychological Hx Reported Smoking Status: Never smoker Past Alcohol Use History: None Reported Past Drug Use History: None Reported - Past Family History Mother Family Medical History: Diabetes Mellitus, Hyperlipidemia, Hypertension Father Family Medical History: Diabetes Mellitus, Hypertension General Exam Limitations: altered mental status General appearance: in no apparent distress Head exam: Present: atraumatic, normocephalic, normal inspection Eye exam: Present: normal appearance, PERRL, EOMI. Absent: scleral icterus, conjunctival injection, periorbital swelling ENT exam: Present: normal exam, mucous membranes moist Neck exam: Present: normal inspection. Absent: tenderness, meningismus, lymphadenopathy Respiratory exam: Present: normal lung sounds bilaterally. Absent: respiratory distress, wheezes, rales, rhonchi, stridor Cardiovascular Exam: Present: regular rate, normal rhythm, normal heart sounds. Absent: systolic murmur, diastolic murmur, rubs, gallop, clicks GI/Abdominal exam: Present: soft, normal bowel sounds. Absent: distended, tenderness, guarding, rebound, rigid Extremities exam: Present: other (Hardy right bicep.) Neurological exam: Present: altered Psychiatric exam: Present: flat affect Course Vital Signs 12/16/24 12/16/24 12/16/24 09:09 10:37 11:07 Temperature 98.1 F Pulse Rate 81 80 80 Respiratory 20 18 18 Rate Blood Pressure 182/111 181/106 184/111 O2 Sat by Pulse 100 95 96 Oximetry 12/16/24 12/16/24 12/16/24 13:20 15:45 16:00 Temperature 98.3 F Pulse Rate 80 76 75 Respiratory 18 20 18 Rate Blood Pressure 189/114 160/101 160/101 O2 Sat by Pulse 100 100 98 Oximetry 12/16/24 16:54 Temperature 97.8 F Pulse Rate 76 Respiratory 18 Rate Blood Pressure 166/99 O2 Sat by Pulse 98 Oximetry Medical Decision Making - Medical Decision Making Was pt. sent in by a medical professional or institution (, PA, FOOD SAFETY SCIENTIST, urgent care, hospital, or [facility]...) When possible be specific @ -No Did you speak to anyone other than the patient for history (EMS, parent, family, police, friend...)? What history was obtained from this source @ -Spoke with for history Did you review nursing and triage notes (agree or disagree)? Why? @ -I reviewed and agree with nursing and triage notes Were old charts reviewed (outside hosp., previous admission, EMS record, old EKG, old radiological studies, urgent care reports/EKG's, [facility] records)? Report findings @ -No old charts were reviewed Differential Diagnosis (chest pain, altered mental status, abdominal pain women, abdominal pain men, vaginal bleeding, weakness, fever, dyspnea, syncope, headache, dizziness, GI bleed, back pain, seizure, CVA, palpatations, mental health, musculoskeletal)? @ -Differential Altered Mental Status: Hypoglycemia, DKA, hypercapnia, ETOH, overdose, CO poisoning, trauma, myxedema coma, HTN encephalopathy, infection, encephalitis, psychosis, intercranial hemorrhage, hepatic encephalopathy, meningitis, CVA, this is not meant to be an all-inclusive list EKG interpreted by me (3pts min.). @ -Yes and demonstrates sinus rhythm with a rate of 80. AK interval 186. QRS 99. QTc of 425. Inverted T wave ST depression 1 and aVL. As well as V5V6 X-rays interpreted by me (1pt min.). @ -Yes which demonstrates volume overload CT interpreted by me (1pt min.). @ -Yes which demonstrates no acute process U/S interpreted by me (1pt. min.). @ -None done What testing was considered but not performed or refused? (CT, X-rays, U/S, labs)? Why? @ -None What meds were considered but not given or refused? Why? @ -None Did you discuss the management of the patient with other professionals (professionals i.e. DrNicky, PA, FOOD SAFETY SCIENTIST, lab, RT, psych nurse, high school social studies tutor, third cook, teacher, supply officer, correctional case manager)? Give summary @ -Spoke with Dr. Montgomery for the admission Was smoking cessation discussed for >3mins.? @ -No Was critical care preformed (if so, how long)? @ -No Were there social determinants of health that impacted care today? How? (Homelessness, low income, unemployed, alcoholism, drug addiction, transportation, low edu. Level, literacy, decrease access to med. care, group home, rehab)? @ -No Was there de-escalation of care discussed even if they declined (Discuss DNR or withdrawal of care, Hospice)? DNR status @ -No What co-morbidities impacted this encounter? (DM, HTN, Smoking, COPD, CAD, Cancer, CVA, ARF, Chemo, Hep., AIDS, mental health diagnosis, sleep apnea, morbid obesity)? @ -End-stage renal disease on hemodialysis, history of previous cardiac arrest Was patient admitted / discharged? Hospital course, mention meds given and route, prescriptions, significant lab abnormalities, going to OR and other pertinent info. @ -Upon arrival patient seen and evaluated in trauma 3. Thorough history and physical exam was performed. Patient placed on continuous pulse ox and cardiac monitoring laboratory studies are conducted. Patient is confused to place and time. CT brain and chest x-ray are performed. Results are discussed with the . I recommended admission for further workup of patient's altered mental st atus. I spoke with Dr. Monet for the admission. I will place nephrology and vascular on consult. Undiagnosed new problem with uncertain prognosis? @ -No Drug Therapy requiring intensive monitoring for toxicity (Heparin, Nitro, Insulin, Cardizem)? @ -No Were any procedures done? @ -No Diagnosis/symptom? @ -Acute encephalopathy, pulmonary vascular congestion, end-stage renal disease on hemodialysis Acute, or Chronic, or Acute on Chronic? @ -Acute Uncomplicated (without systemic symptoms) or Complicated (systemic symptoms)? @ -Complicated Side effects of treatment? @ -No Exacerbation, Progression, or Severe Exacerbation? @ -No Poses a threat to life or bodily function? How? (Chest pain, [place], GA, pneumonia, PE, COPD, DKA, ARF, appy, cholecystitis, CVA, Diverticulitis, Homicidal, Suic idal, threat to staff... and all critical care pts) @ -Yes as patient is altered from his baseline - Lab Data Result diagrams: 12/19/24 07:11 12/19/24 07:11 Lab Results 12/16/24 12/16/24 12/16/24 Range/Units 09:25 10:12 10:12 WBC 6.6 (3.8-10.6) k/uL RBC 3.03 L (4.30-5.90) m/uL Hgb 9.0 L D (13.0-17.5) gm/dL Hct 30.2 L (39.0-53.0) % MCV 99.7 (80.0-100.0) fL MCH 29.7 (25.0-35.0) pg MCHC 29.8 L (31.0-37.0) g/dL RDW 16.1 H (11.5-15.5) % Plt Count 149 L D (150-450) k/uL MPV 10.3 Neutrophils % 81 % Lymphocytes % 12 % Monocytes % 5 % Eosinophils % 1 % Basophils % 0 % Neutrophils # 5.4 (1.3-7.7) k/uL Lymphocytes # 0.8 L (1.0-4.8) k/uL Monocytes # 0.3 (0-1.0) k/uL Eosinophils # 0.1 (0-0.7) k/uL Basophils # 0.0 (0-0.2) k/uL Hypochromasia Moderate Anisocytosis Slight Macrocytosis Slight PT 13.2 H (10.0-12.5) sec INR 1.2 H (<1.2) APTT 30.1 H (22.0-30.0) sec Sodium (137-145) mmol/L Potassium (3.5-5.1) mmol/L Chloride (98-107) mmol/L Carbon Dioxide (22-30) mmol/L Anion Gap mmol/L BUN (9-20) mg/dL Creatinine (0.66-1.25) mg/dL Est GFR (CKD-EPI)AfAm (>60 ml/min/1.73 sqM) Est GFR (CKD-EPI)NonAf (>60 ml/min/1.73 sqM) Glucose (74-99) mg/dL POC Glucose (mg/dL) 161 H (70-110) mg/dL POC Glu Roll Slicing Machine Tender ID [facility] Calcium (8.4-10.2) mg/dL Phosphorus (2.5-4.5) mg/dL Magnesium (1.6-2.3) mg/dL Total Bilirubin (0.2-1.3) mg/dL AST (17-59) U/L ALT (4-49) U/L Alkaline Phosphatase (38-126) U/L Ammonia (<30) umol/L Troponin I (0.000-0.034) ng/mL NT-Pro-B Natriuret Pep pg/mL Total Protein (6.3-8.2) g/dL Albumin (3.5-5.0) g/dL Salicylates mg/dL Acetaminophen ug/mL Serum Alcohol mg/dL 12/16/24 12/16/24 12/16/24 Range/Units 10:12 10:12 10:12 WBC (3.8-10.6) k/uL RBC (4.30-5.90) m/uL Hgb (13.0-17.5) gm/dL Hct (39.0-53.0) % MCV (80.0-100.0) fL MCH (25.0-35.0) pg MCHC (31.0-37.0) g/dL RDW (11.5-15.5) % Plt Count (150-450) k/uL MPV Neutrophils % % Lymphocytes % % Monocytes % % Eosinophils % % Basophils % % Neutrophils # (1.3-7.7) k/uL Lymphocytes # (1.0-4.8) k/uL Monocytes # (0-1.0) k/uL Eosinophils # (0-0.7) k/uL Basophils # (0-0.2) k/uL Hypochromasia Anisocytosis Macrocytosis PT (10.0-12.5) sec INR (<1.2) APTT (22.0-30.0) sec Sodium 135 L (137-145) mmol/L Potassium 5.0 (3.5-5.1) mmol/L Chloride 96 L (98-107) mmol/L Carbon Dioxide 27 (22-30) mmol/L Anion Gap 12 mmol/L BUN 33 H (9-20) mg/dL Creatinine 5.24 H (0.66-1.25) mg/dL Est GFR (CKD-EPI)AfAm 14 (>60 ml/min/1.73 sqM) Est GFR (CKD-EPI)NonAf 12 (>60 ml/min/1.73 sqM) Glucose 158 H (74-99) mg/dL POC Glucose (mg/dL) (70-110) mg/dL POC Glu Roll Slicing Machine Tender ID Calcium 9.5 (8.4-10.2) mg/dL Phosphorus 4.0 (2.5-4.5) mg/dL Magnesium 2.1 (1.6-2.3) mg/dL Total Bilirubin 1.0 (0.2-1.3) mg/dL AST 57 (17-59) U/L ALT 38 (4-49) U/L Alkaline Phosphatase 286 H (38-126) U/L Ammonia 10 (<30) umol/L Troponin I 0.053 H* (0.000-0.034) ng/mL NT-Pro-B Natriuret Pep pg/mL Total Protein 8.3 H (6.3-8.2) g/dL Albumin 3.8 (3.5-5.0) g/dL Salicylates <1.0 mg/dL Acetaminophen <10.0 ug/mL Serum Alcohol <10 mg/dL 12/16/24 Range/Units 11:10 WBC (3.8-10.6) k/uL RBC (4.30-5.90) m/uL Hgb (13.0-17.5) gm/dL Hct (39.0-53.0) % MCV (80.0-100.0) fL MCH (25.0-35.0) pg MCHC (31.0-37.0) g/dL RDW (11.5-15.5) % Plt Count (150-450) k/uL MPV Neutrophils % % Lymphocytes % % Monocytes % % Eosinophils % % Basophils % % Neutrophils # (1.3-7.7) k/uL Lymphocytes # (1.0-4.8) k/uL Monocytes # (0-1.0) k/uL Eosinophils # (0-0.7) k/uL Basophils # (0-0.2) k/uL Hypochromasia Anisocytosis Macrocytosis PT (10.0-12.5) sec INR (<1.2) APTT (22.0-30.0) sec Sodium (137-145) mmol/L Potassium (3.5-5.1) mmol/L Chloride (98-107) mmol/L Carbon Dioxide (22-30) mmol/L Anion Gap mmol/L BUN (9-20) mg/dL Creatinine (0.66-1.25) mg/dL Est GFR (CKD-EPI)AfAm (>60 ml/min/1.73 sqM) Est GFR (CKD-EPI)NonAf (>60 ml/min/1.73 sqM) Glucose (74-99) mg/dL POC Glucose (mg/dL) (70-110) mg/dL POC Glu Roll Slicing Machine Tender ID Calcium (8.4-10.2) mg/dL Phosphorus (2.5-4.5) mg/dL Magnesium (1.6-2.3) mg/dL Total Bilirubin (0.2-1.3) mg/dL AST (17-59) U/L ALT (4-49) U/L Alkaline Phosphatase (38-126) U/L Ammonia (<30) umol/L Troponin I (0.000-0.034) ng/mL NT-Pro-B Natriuret Pep [id number] pg/mL Total Protein (6.3-8.2) g/dL Albumin (3.5-5.0) g/dL Salicylates mg/dL Acetaminophen ug/mL Serum Alcohol mg/dL Disposition Clinical Impression: CHF (congestive heart failure), ESRD on hemodialysis, Acute encephalopathy Disposition: ADMITTED IP TO THIS [facility] Condition: Stable Is patient prescribed a controlled substance at d/c from ED?: No Time of Disposition: 11:26 Decision to Admit Reason: Admit from EC Decision Date: 12/16/24 Decision Time: 11:26
[2024-12-16] MEDS ORDERED: NALOXONE 0.4 MG/ML 1 ML VIAL IV PRN (11:31)
[2024-12-16] MEDS ORDERED: PANTOPRAZOLE 40 MG TABLET PO PRN (11:39)
[2024-12-16] MEDS ORDERED: SENNOSIDES 8.6 MG TAB PO PRN (11:39)
[2024-12-16 12:26] LABS: Allen Test Performed? Yes
[2024-12-16 13:02] LABS: ABG Base Excess 4.9 mmol/L; ABG HCO3 28 mmol/L (21-25); ABG Oxygen Saturation 93.8 % (94-97); ABG PCO2 35 mmHg (35-45); ABG PH 7.51 (7.35-7.45); ABG PO2 60 mmHg (83-108); ABG TCO2 29 mmol/L (19-24)
[2024-12-16] MEDS: carvediloL 12.5 MG TAB PO SCH (13:30)
[2024-12-16] MEDS: ASPIRIN 81 MG PO SCH (13:30)
[2024-12-16] MEDS: amLODIPine 10 MG TAB PO SCH (13:30)
[2024-12-16] MEDS: hydrALAZINE HCL 50 MG TAB PO PRN (13:31)
[2024-12-16] MEDS: CALCIUM CARBONATE 500 MG CHEWABLE PO PRN (13:31)
--- NOTE | 2024-12-16 15:31 | P.GSCN ---
History of Present Illness Consult date: 12/16/24 Reason for Consult: Right upper extremity lan post dialysis graft explantation Requesting physician: Alena Arcos History of present illness: 44-year-old male known to vascular surgical services who was admitted in October and discharged in early November for bacteremia. Has a history of end-stage renal disease on hemodialysis with a prior right upper extremity graft which was suspected to be infected and subsequently removed on 11/05/2024. He has a right IJ tunneled catheter in place. He gets dialysis Friday. Apparently he did get dialysis yesterday without any complications. He was b rought into the emergency department today with concerns for altered mental status changes. His had found him to be incoherent, lethargic and difficult to arouse. He came in for further evaluation. Vascular surgery was consulted because patient still has right upper extremity lan in place. Patient's is at the bedside and states that he was supposed to go to follow-up with his previous vascular surgeon today to have lan removed in for further evaluation for new graft. Patient denies any pain in the right upper extremity, incisions are well-approximated, there is no redness or drainage. There is no tenderness to palpation. Patient has not had any fevers or chills. No leukocytosis. Review of Systems A 14 point review systems was completed all pertinent positives and negatives as stated in the HPI. Past Medical History Past Medical History: Coronary Artery Disease (CAD), Heart Failure, Eye Disorde r, GERD/Reflux, Hyperlipidemia, Hypertension, Myocardial Infarction ([place]), Renal Disease, Respiratory Disorder Additional Past Medical History / Comment(s): chronic kidney injury/acute anemia/advanced CAD/valvular disease/severe pulmonary htn/abnormal liver test/hyperlipidemia. Other hx: IDDM type II, pt states informed he had kidney disease in Feb, 2020 then ESRD diagnosed 05/09/20 with hemodialysis M/W/F,neuropathy bilateral feet, L foot ulcer with debridements, L eye blindness d/t diabetic retinopathy, ischemic cardiomyopathy, anasarca/lower leg edema. Last Myocardial Infarction Date:: 03/30/2018 History of Any Multi-Drug Resistant Organisms: None Reported Year Discovered:: 10/31/24 MDRO Source:: blood, sputum Past Surgical History: Heart Catheterization With Stent Additional Past Surgical History / Comment(s): 05/17/20 R subclavian hemodialysis catheter, debridements L foot wound, R eye surgery-pt believes to remove cataract, SEAN fistula Past Anesthesia/Blood Transfusion Reactions: No Reported Reaction Additional Past Anesthesia/Blood Transfusion Reaction / Comm: During 3rd debridement L foot ulcer Date of Last Stent Placement:: 03/31/2018 Past Psychological History: No Psychological Hx Reported Smoking Status: Never smoker Past Alcohol Use History: None Reported Past Drug Use History: None Reported - Past Family History Mother Family Medical History: Diabetes Mellitus, Hyperlipidemia, Hypertension Father Family Medical History: Diabetes Mellitus, Hypertension Medications and Allergies Home Medications Medication Instructions Recorded Confirmed Type Nitroglycerin Sl Tabs [Nitrostat] 0.4 mg SL Q5M PRN 05/09/20 12/16/24 History Aspirin 81 mg PO DAILY #30 tab 06/17/24 12/16/24 Rx carvediloL [Coreg] 50 mg PO BID-W/MEALS 08/28/24 12/16/24 History cloNIDine 0.3 MG/24HR PATCH 1 patch TRANSDERM WEEKLY 08/28/24 12/16/24 History [Catapres-TTS] Calcium Carbonate [Tums] 1,000 mg PO Q4HR PRN tab 11/24/24 12/16/24 Rx Mag Hydrox/Al Hydrox/Simeth 15 ml PO Q6HR PRN ml 11/24/24 12/16/24 Rx [Maalox] Midodrine [ProAmatine] 5 mg PO DAILY PRN #30 tab 11/24/24 12/16/24 Rx Torsemide [Demadex] 40 mg PO DAILY #30 tab 11/24/24 12/16/24 Rx amLODIPine [Norvasc] 10 mg PO DAILY #30 tab 11/24/24 12/16/24 Rx Cyclobenzaprine [Flexeril] 5 mg PO TID PRN 12/16/24 12/16/24 History DAPTOmycin [Cubicin] 1 dose IVPB DIRECTED 12/16/24 12/16/24 History Darbepoetin Levy [Aranesp] 40 mcg SQ DIRECTED 12/16/24 12/16/24 History Isosorbide Dinitrate [Isordil] 10 mg PO TID 12/16/24 12/16/24 History Pantoprazole [Protonix] 40 mg PO DAILY PRN 12/16/24 12/16/24 History Sennosides [Senokot] 8.6 mg PO BID PRN 12/16/24 12/16/24 History hydrALAZINE HCL [Apresoline] 50 mg PO QID PRN 12/16/24 12/16/24 History Allergies Allergy/AdvReac Type Severity Reaction Status Date / Time nickel Allergy Rash/Hives Verified 12/16/24 10:46 Surgical - Exam Vital Signs Temp Pulse Resp BP Pulse Ox 98.1 F 81 20 182/111 100 12/16/24 09:09 12/16/24 09:09 12/16/24 09:09 12/16/24 09:09 12/16/24 09:09 General appearance: The patient is alert, answers questions mostly appropriate however has altered mental status. HET: Head is normocephalic and atraumatic. Neck: Supple. Chest: Right chest wall with right IJ tunneled catheter in place. No surrounding redness, tenderness or swelling. No drainage. Heart: Regular. Lungs: Equal expansion, normal respiratory effort. Abdomen: Soft, nondistended. Extremities: Normal skin color and turgor. Right upper extremity surgical incision well-approximated with lan without any redness, drainage, swelling or tenderness. Neurological: Patient appears drowsy, arousable and alert but altered. Results - Labs 12/16/24 10:12 12/16/24 10:12 Abnormal Lab Results - Last 24 Hours (Table) 12/16/24 12/16/24 12/16/24 Range/Units 09:25 10:12 10:12 RBC 3.03 L (4.30-5.90) m/uL Hgb 9.0 L D (13.0-17.5) gm/dL Hct 30.2 L (39.0-53.0) % MCHC 29.8 L (31.0-37.0) g/dL RDW 16.1 H (11.5-15.5) % Plt Count 149 L D (150-450) k/uL Lymphocytes # 0.8 L (1.0-4.8) k/uL PT 13.2 H (10.0-12.5) sec INR 1.2 H (<1.2) APTT 30.1 H (22.0-30.0) sec ABG pH (7.35-7.45) ABG pO2 (83-108) mmHg ABG HCO3 (21-25) mmol/L ABG Total CO2 (19-24) mmol/L ABG O2 Saturation (94-97) % Hemoglobin (13.0-17.5) gm/dL Sodium (137-145) mmol/L Chloride (98-107) mmol/L BUN (9-20) mg/dL Creatinine (0.66-1.25) mg/dL Glucose (74-99) mg/dL POC Glucose (mg/dL) 161 H (70-110) mg/dL Alkaline Phosphatase (38-126) U/L Troponin I (0.000-0.034) ng/mL Total Protein (6.3-8.2) g/dL 12/16/24 12/16/24 12/16/24 Range/Units 10:12 10:12 12:07 RBC (4.30-5.90) m/uL Hgb (13.0-17.5) gm/dL Hct (39.0-53.0) % MCHC (31.0-37.0) g/dL RDW (11.5-15.5) % Plt Count (150-450) k/uL Lymphocytes # (1.0-4.8) k/uL PT (10.0-12.5) sec INR (<1.2) APTT (22.0-30.0) sec ABG pH (7.35-7.45) ABG pO2 (83-108) mmHg ABG HCO3 (21-25) mmol/L ABG Total CO2 (19-24) mmol/L ABG O2 Saturation (94-97) % Hemoglobin (13.0-17.5) gm/dL Sodium 135 L (137-145) mmol/L Chloride 96 L (98-107) mmol/L BUN 33 H (9-20) mg/dL Creatinine 5.24 H (0.66-1.25) mg/dL Glucose 158 H (74-99) mg/dL POC Glucose (mg/dL) (70-110) mg/dL Alkaline Phosphatase 286 H (38-126) U/L Troponin I 0.053 H* 0.051 H* (0.000-0.034) ng/mL Total Protein 8.3 H (6.3-8.2) g/dL 12/16/24 Range/Units 12:20 RBC (4.30-5.90) m/uL Hgb (13.0-17.5) gm/dL Hct (39.0-53.0) % MCHC (31.0-37.0) g/dL RDW (11.5-15.5) % Plt Count (150-450) k/uL Lymphocytes # (1.0-4.8) k/uL PT (10.0-12.5) sec INR (<1.2) APTT (22.0-30.0) sec ABG pH 7.51 H (7.35-7.45) ABG pO2 60 L (83-108) mmHg ABG HCO3 28 H (21-25) mmol/L ABG Total CO2 29 H (19-24) mmol/L ABG O2 Saturation 93.8 L (94-97) % Hemoglobin 8.4 L (13.0-17.5) gm/dL Sodium (137-145) mmol/L Chloride (98-107) mmol/L BUN (9-20) mg/dL Creatinine (0.66-1.25) mg/dL Glucose (74-99) mg/dL POC Glucose (mg/dL) (70-110) mg/dL Alkaline Phosphatase (38-126) U/L Troponin I (0.000-0.034) ng/mL Total Protein (6.3-8.2) g/dL Diabetes panel 12/16/24 Range/Units 10:12 Sodium 135 L (137-145) mmol/L Potassium 5.0 (3.5-5.1) mmol/L Chloride 96 L (98-107) mmol/L Carbon Dioxide 27 (22-30) mmol/L BUN 33 H (9-20) mg/dL Creatinine 5.24 H (0.66-1.25) mg/dL Glucose 158 H (74-99) mg/dL Calcium 9.5 (8.4-10.2) mg/dL AST 57 (17-59) U/L ALT 38 (4-49) U/L Alkaline Phosphatase 286 H (38-126) U/L Total Protein 8.3 H (6.3-8.2) g/dL Albumin 3.8 (3.5-5.0) g/dL Calcium panel 12/16/24 Range/Units 10:12 Calcium 9.5 (8.4-10.2) mg/dL Phosphorus 4.0 (2.5-4.5) mg/dL Albumin 3.8 (3.5-5.0) g/dL Pituitary panel 12/16/24 Range/Units 10:12 Sodium 135 L (137-145) mmol/L Potassium 5.0 (3.5-5.1) mmol/L Chloride 96 L (98-107) mmol/L Carbon Dioxide 27 (22-30) mmol/L BUN 33 H (9-20) mg/dL Creatinine 5.24 H (0.66-1.25) mg/dL Glucose 158 H (74-99) mg/dL Calcium 9.5 (8.4-10.2) mg/dL Adrenal panel 12/16/24 Range/Units 10:12 Sodium 135 L (137-145) mmol/L Potassium 5.0 (3.5-5.1) mmol/L Chloride 96 L (98-107) mmol/L Carbon Dioxide 27 (22-30) mmol/L BUN 33 H (9-20) mg/dL Creatinine 5.24 H (0.66-1.25) mg/dL Glucose 158 H (74-99) mg/dL Calcium 9.5 (8.4-10.2) mg/dL Total Bilirubin 1.0 (0.2-1.3) mg/dL AST 57 (17-59) U/L ALT 38 (4-49) U/L Alkaline Phosphatase 286 H (38-126) U/L Total Protein 8.3 H (6.3-8.2) g/dL Albumin 3.8 (3.5-5.0) g/dL Assessment and Plan Assessment: 1. History of right upper extremity infected dialysis graft status post surgical explantation 2. End-stage renal disease on hemodialysis per tunneled catheter 3. Altered mental status changes Plan: Will reevaluate patient tomorrow. Surgical incision is clean dry and intact with lan, no signs of infection. Will plan for staple removal tomorrow. Rest of medical management per primary medical team. Thank you for this consultation. The impression and plan of care has been dictated as directed. Dr.Cuello Goldberg performed a history and examination of this patient, discussed the same with the dictator. I agree with the dictator's note ,documented as a scribe. Any additional findings or plans will be noted.
[2024-12-16] MEDS: TORSEMIDE 20 MG TAB PO SCH (15:51)
[2024-12-16] MEDS: ISOSORBIDE DINITRATE 10 MG TAB PO SCH (16:10)
[2024-12-16 16:56] LABS: Glucose,Whole Blood 109 mg/dL (70-110)
[2024-12-16] MEDS ORDERED: DEXTROSE 50% SYRINGE 50 ML IVP PRN ×2 (18:49)
[2024-12-16 20:12] LABS: Glucose,Whole Blood 147 mg/dL (70-110)
[2024-12-16] MEDS: INSULIN LISPRO (HumaLOG) 100 UNIT/ML 10 mL VL SQ SCH (20:46)
--- NOTE | 2024-12-16 21:37 | P.HPIM ---
History of Present Illness This is a pleasant 44 years old -[place] male with past medical history of end-stage renal disease on hemodialysis. Presents because of altered mental status. Patient Poor historian and most of the information were obtained from the which is at bedside. Patient looks weak and lethargic. He knows it is 2024 but slow to respond could not tell where he is at and the name of the president. He went for hemodialysis at 6 PM however he was so weak and sleepy and hence was for him to wake him up between 4 and 10 PM after she came from work. Found to have also more weak and more lethargic and kind of loopy and floaty therefore stand up or walk he cannot. Because of this she decided to bring him to the hospital Patient denies any specific GI symptoms. He is not making urine No chest pain no dyspnea. No headache dizziness weakness or numbness. Is getting hemodialysis 4 times a week Also the was suspicion he took extra medication from his [id number] medication including Robaxin and [place]. He follow-up with vascular surgery and infectious disease for his right upper extremity wound. He is getting antibiotics with hemodialysis. He is not on oxygen at home. On admission his hypertensive with a blood pressure 184/111. He is afebrile. Labs including CBC, BMP and LFT were unremarkable except for mild anemia at 9 although his baseline is 6-7. Platelet count slightly low at 149 and creatinine 5.2. Troponin is elevated with a flat affect at 0.05 at 0.059. proBNP significantly elevated [id number] CT of the brain is negative for acute process. Chest x-ray showing acute pulmonary congestion suspicious for CHF. pH is elevated at 7.54 CO2 is normal at 35 increased pO2 at 60. Salicylate less than 1 acetaminophen less than 10 and alcohol less than 10 EKG showing sinus rhythm with no ST depression and T wave inversion and lead I, V5 to V6 and aVL Review of Systems Review of systems CONSTITUTIONAL: No fever, no malaise, no fatigue. HEENT: No recent visual problems or hearing problems. Denied any sore throat. CARDIOVASCULAR: No orthopnea, PND, no palpitations, no syncope. PULMONARY: No shortness of breath, no cough, no hemoptysis. GASTROINTESTINAL: No diarrhea, no nausea, no vomiting, no abdominal pain. Normoactive bowel sounds. NEUROLOGICAL: No headaches, no weakness, no numbness. HEMATOLOGICAL: Denies any bleeding or petechiae. GENITOURINARY: Denies any burning micturition, frequency, or urgency. MUSCULOSKELETAL/RHEUMATOLOGICAL: Denies any joint pain, swelling, or any muscle pain. ENDOCRINE: Denies any polyuria or polydipsia. Past Medical History Past Medical History: Coronary Artery Disease (CAD), Heart Failure, Eye Disorder, GERD/Reflux, Hyperlipidemia, Hypertension, Myocardial Infarction ([place]), Renal Disease, Respiratory Disorder Additional Past Medical History / Comment(s): chronic kidney injury/acute anemia/advanced CAD/valvular disease/severe pulmonary htn/abnormal liver marisa t/hyperlipidemia. Other hx: IDDM type II, pt states informed he had kidney disease in Feb, 2020 then ESRD diagnosed 05/09/20 with hemodialysis M/W/F,neuropathy bilateral feet, L foot ulcer with debridements, L eye blindness d/t diabetic retinopathy, ischemic cardiomyopathy, anasarca/lower leg edema. Patient admitted Oct 21 2024 with RSV and Bacteremia(MRSA in blood). Developed right arm Hematoma above his fistula and went into Cardiac Arrest when they gave him anesthesia to drain Hematoma-Oct. Fistula has since been removed Nov 05, 2024. Last Myocardial Infarction Date:: 03/30/2018 History of Any Multi-Drug Resistant Organisms: None Reported Date of last positivie culture/infection: 10/31/24 MDRO Source:: blood, sputum Past Surgical History: Heart Catheterization With Stent Additional Past Surgical History / Comment(s): 05/17/20 R subclavian hemodialysis catheter, debridements L foot wound, R eye surgery-pt believes to remove cataract, SEAN fistula-removal of fistula. . ISIDORO on November 04, 2024. Right subclavian Catheter Oct 23, 2024 Past Anesthesia/Blood Transfusion Reactions: No Reported Reaction Additional Past Anesthesia/Blood Transfusion Reaction / Comment(s): During 3rd debridement L foot ulcer Date of Last Stent Placement:: 03/31/2018 Past Psychological History: No Psychological Hx Reported Additional Psychological History / Comment(s): Pt recently moved up from [place] to live with his mother. He is applying for disability and having difficulty with the forms. Pt's car recently has broken down and has not been able to get it fixed, missed dialysis d/t ride problem and unable to get to [place] for dialysis. Mother states pt can use bus to get to local appts. Smoking Status: Never smoker Past Alcohol Use History: None Reported Past Drug Use History: None Reported - Past Family History Mother Family Medical History: Diabetes Mellitus, Hyperlipidemia, Hypertension Father Family Medical History: Diabetes Mellitus, Hypertension Medications and Allergies Home Medications Medication Instructions Recorded Confirmed Type RX: Nitroglycerin Sl Tabs 0.4 mg SL Q5M PRN 05/09/20 12/16/24 History [Nitrostat] RX: Aspirin 81 mg PO DAILY #30 tab 06/17/24 12/16/24 Rx RX: carvediloL [Coreg] 50 mg PO BID-W/MEALS 08/28/24 12/16/24 History RX: cloNIDine 0.3 MG/24HR PATCH 1 patch TRANSDERM WEEKLY 08/28/24 12/16/24 History [Catapres-TTS] RX: Calcium Carbonate [Tums] 1,000 mg PO Q4HR PRN tab 11/24/24 12/16/24 Rx RX: Mag Hydrox/Al Hydrox/Simeth 15 ml PO Q6HR PRN ml 11/24/24 12/16/24 Rx [Maalox] RX: Midodrine [ProAmatine] 5 mg PO DAILY PRN #30 tab 11/24/24 12/16/24 Rx RX: Torsemide [Demadex] 40 mg PO DAILY #30 tab 11/24/24 12/16/24 Rx RX: amLODIPine [Norvasc] 10 mg PO DAILY #30 tab 11/24/24 12/16/24 Rx Cyclobenzaprine [Flexeril] 5 mg PO TID PRN 12/16/24 12/16/24 History Isosorbide Dinitrate [Isordil] 10 mg PO TID 12/16/24 12/16/24 History RX: DAPTOmycin [Cubicin] 1 dose IVPB DIRECTED 12/16/24 12/16/24 History RX: Darbepoetin Levy [Aranesp] 40 mcg SQ DIRECTED 12/16/24 12/16/24 History RX: Pantoprazole [Protonix] 40 mg PO DAILY PRN 12/16/24 12/16/24 History RX: Sennosides [Senokot] 8.6 mg PO BID PRN 12/16/24 12/16/24 History hydrALAZINE HCL [Apresoline] 50 mg PO QID PRN 12/16/24 12/16/24 History Allergies Allergy/AdvReac Type Severity Reaction Status Date / Time nickel Allergy Rash/Hives Verified 12/16/24 10:46 Physical Exam Vitals: Vital Signs Temp Pulse Pulse Resp BP BP Pulse Ox 12/16/24 19:35 98.3 F 78 20 139/72 97 12/16/24 17:45 100 12/16/24 17:33 97.8 F 76 19 168/97 100 12/16/24 17:13 74 18 159/10 98 12/16/24 16:54 97.8 F 76 18 166/99 98 12/16/24 16:00 75 18 160/101 98 12/16/24 15:45 76 20 160/101 100 12/16/24 13:20 98.3 F 80 18 189/114 100 12/16/24 11:07 80 18 184/111 96 12/16/24 10:37 80 18 181/106 95 12/16/24 09:09 98.1 F 81 20 182/111 100 Intake and Output 12/16/24 12/16/24 12/16/24 06:59 14:59 22:59 Other: Weight 81.647 kg 82.5 kg -GENERAL: The patient is alert and oriented x1-2 partially, slow to respond but he is appropriate and follow commands, not in any acute distress. Well developed, well nourished. HEENT: Pupils are round and equally reacting to light. EOMI. No scleral icterus. No conjunctival pallor. Normocephalic, atraumatic. No pharyngeal erythema. No thyromegaly. CARDIOVASCULAR: S1 and S2 present. No murmurs, rubs, or gallops. -PULMONARY: Chest is clear to auscultation, no wheezing , no crackles. Right upper chest in tunnel permacath ABDOMEN: Soft, nontender, nondistended, normoactive bowel sounds. No palpable organomegaly. MUSCULOSKELETAL: No joint swelling or deformity. -EXTREMITIES: No cyanosis, clubbing, or pedal edema. Right upper extremity surgical wound with lan in place, wound is closed with no signs of infection or cellulitis NEUROLOGICAL: Gross neurological examination did not reveal any focal deficits. SKIN: No rashes. no petechiae. Results CBC & Chem 7: 12/16/24 10:12 12/16/24 10:12 Labs: Abnormal Lab Results - Last 24 Hours (Table) 12/16/24 12/16/24 12/16/24 Range/Units 09:25 10:12 10:12 RBC 3.03 L (4.30-5.90) m/uL Hgb 9.0 L D (13.0-17.5) gm/dL Hct 30.2 L (39.0-53.0) % MCHC 29.8 L (31.0-37.0) g/dL RDW 16.1 H (11.5-15.5) % Plt Count 149 L D (150-450) k/uL Lymphocytes # 0.8 L (1.0-4.8) k/uL PT 13.2 H (10.0-12.5) sec INR 1.2 H (<1.2) APTT 30.1 H (22.0-30.0) sec ABG pH (7.35-7.45) ABG pO2 (83-108) mmHg ABG HCO3 (21-25) mmol/L ABG Total CO2 (19-24) mmol/L ABG O2 Saturation (94-97) % Hemoglobin (13.0-17.5) gm/dL Sodium (137-145) mmol/L Chloride (98-107) mmol/L BUN (9-20) mg/dL Creatinine (0.66-1.25) mg/dL Glucose (74-99) mg/dL POC Glucose (mg/dL) 161 H (70-110) mg/dL Alkaline Phosphatase (38-126) U/L Troponin I (0.000-0.034) ng/mL Total Protein (6.3-8.2) g/dL 12/16/24 12/16/24 12/16/24 Range/Units 10:12 10:12 12:07 RBC (4.30-5.90) m/uL Hgb (13.0-17.5) gm/dL Hct (39.0-53.0) % MCHC (31.0-37.0) g/dL RDW (11.5-15.5) % Plt Count (150-450) k/uL Lymphocytes # (1.0-4.8) k/uL PT (10.0-12.5) sec INR (<1.2) APTT (22.0-30.0) sec ABG pH (7.35-7.45) ABG pO2 (83-108) mmHg ABG HCO3 (21-25) mmol/L ABG Total CO2 (19-24) mmol/L ABG O2 Saturation (94-97) % Hemoglobin (13.0-17.5) gm/dL Sodium 135 L (137-145) mmol/L Chloride 96 L (98-107) mmol/L BUN 33 H (9-20) mg/dL Creatinine 5.24 H (0.66-1.25) mg/dL Glucose 158 H (74-99) mg/dL POC Glucose (mg/dL) (70-110) mg/dL Alkaline Phosphatase 286 H (38-126) U/L Troponin I 0.053 H* 0.051 H* (0.000-0.034) ng/mL Total Protein 8.3 H (6.3-8.2) g/dL 12/16/24 12/16/24 12/16/24 Range/Units 12:20 15:47 20:11 RBC (4.30-5.90) m/uL Hgb (13.0-17.5) gm/dL Hct (39.0-53.0) % MCHC (31.0-37.0) g/dL RDW (11.5-15.5) % Plt Count (150-450) k/uL Lymphocytes # (1.0-4.8) k/uL PT (10.0-12.5) sec INR (<1.2) APTT (22.0-30.0) sec ABG pH 7.51 H (7.35-7.45) ABG pO2 60 L (83-108) mmHg ABG HCO3 28 H (21-25) mmol/L ABG Total CO2 29 H (19-24) mmol/L ABG O2 Saturation 93.8 L (94-97) % Hemoglobin 8.4 L (13.0-17.5) gm/dL Sodium (137-145) mmol/L Chloride (98-107) mmol/L BUN (9-20) mg/dL Creatinine (0.66-1.25) mg/dL Glucose (74-99) mg/dL POC Glucose (mg/dL) 147 H (70-110) mg/dL Alkaline Phosphatase (38-126) U/L Troponin I 0.059 H* (0.000-0.034) ng/mL Total Protein (6.3-8.2) g/dL Assessment and Plan Assessment: Altered mental status, looks mild and improving however patient not back to baseline could be toxic metabolic encephalopathy Acute hypoxic respiratory failure Acute diastolic CHF End-stage renal disease on hemodialysis History of cardiac arrest x 2 Recent surgical resection of his infected right upper extremity graft with surgical wound looks closed and healthy. And also is healing. Hypertension, uncontrolled on admission Chronic anemia. Plan: Continue with neurocheck. Continue with hemodialysis per manager private Infectious disease team and vascular surgery team were consulted Continue with antihypertensive medication. Cardiac team consult as patient has history of cardiac arrest labs and medication were reviewed.. Continue same treatment. Continue with symptomatic treatment. Resume home medication. Monitor labs and vitals. DVT and GI proph ylaxis. Further recommendations as per clinical course of the patient DVT prophylaxis: Subcutaneous heparin GI Prophylaxis: Ppi Prognosis is guarded
[2024-12-17 07:02] LABS: Glucose,Whole Blood 117 mg/dL (70-110)
[2024-12-17 08:44] LABS: BUN/Creat Ratio 5.63 Ratio (12.00-20.00); Blood Urea Nitrogen 37.7 mg/dL (9.0-27.0); Calcium 9.3 mg/dL (8.7-10.3); Carbon Dioxide 25.4 mmol/L (21.6-31.8); Chloride 99 mmol/L (96-109); Glucose 128 mg/dL (70-110); Potassium 5.3 mmol/L (3.5-5.5); Sodium 137 mmol/L (135-145)
[2024-12-17 08:48] LABS: Basophils # (A) 0.03 X 10*3/uL (0.00-0.10); Basophils % (A) 0.5 %; Eosinophils # (A) 0.01 X 10*3/uL (0.04-0.35); Eosinophils % (A) 0.2 %; HCT 24.8 % (39.6-50.0); HGB 8.1 g/dL (13.0-17.0); Lymphocytes # (A) 0.71 X 10*3/uL (0.90-5.00); Lymphocytes % (A) 11.4 %; MCH 30.8 pg (27.0-32.0); MCHC 32.7 g/dL (32.0-37.0); MCV 94.3 FL (80.0-97.0); Monocytes # (A) 0.56 X 10*3/uL (0.20-1.00); NRBC Per 100 WBC 0 X 10*3/uL (0.00-0.01); Neutrophils # (A) 4.91 X 10*3/uL (1.80-7.70); Neutrophils % (A) 78.4 %; Platelet Count 136 X 10*3/uL (140-440); RBC 2.63 X 10*6/uL (4.40-5.60); RDW 15.9 % (11.5-14.5); WBC 6.25 X 10*3/uL (4.50-10.00)
--- NOTE | 2024-12-17 11:00 | P.PN ---
Subjective Progress Note Date: 12/17/24 Principal diagnosis: Previous graft removal Patient is seen and examined today as a follow-up. He remains with altered mental status changes. Patient is moaning in bed and tossing and turning. He is really not engaging in any Meaningful conversation not really following direc tions. Apparently patient has some discomfort of his left fourth toe which is missing a toenail. Patient has been afebrile, he had a slight fever through the night at 99.7. No leukocytosis. Objective - Vital Signs Vital signs: Vital Signs Temp 99.7 F H 12/17/24 01:35 Pulse 79 12/17/24 07:01 Resp 20 12/17/24 07:01 BP 156/91 12/17/24 07:01 Pulse Ox 100 12/17/24 07:01 FiO2 Intake & Output 12/16/24 12/17/24 12/17/24 18:59 06:59 18:59 Intake Total 120 Balance 120 Weight 81.647 kg 82.5 kg Intake: Oral 120 - Exam General appearance: The patient mental status altered, appears in no acute distress. HET: Head is normocephalic and atraumatic. Neck: Supple. Chest: Right chest tunneled catheter in place clean dry and intact. No surround ing erythema or drainage. Extremities: Normal skin color and turgor. Right upper extremity surgical site with lan well-approximated without any surrounding erythema, swelling, tenderness or drainage. Lan removed. Palpable radial pulse. Left foot for toe missing toenail without any signs of infection. Palpable DP pulse. Neurological: Altered mental status changes, patient not engaging, moaning and rolling in bed. - Labs CBC & Chem 7: 12/17/24 04:26 12/17/24 04:26 Labs: Abnormal Lab Results - Last 24 Hours (Table) 12/16/24 12/16/24 12/16/24 Range/Units 12:07 12:20 15:47 RBC (4.40-5.60) X 10*6/uL Hgb (13.0-17.0) g/dL Hct (39.6-50.0) % RDW (11.5-14.5) % Plt Count (140-440) X 10*3/uL MPV (9.5-12.2) FL Lymphocytes # (0.90-5.00) X 10*3/uL Eosinophils # (0.04-0.35) X 10*3/uL ABG pH 7.51 H (7.35-7.45) ABG pO2 60 L (83-108) mmHg ABG HCO3 28 H (21-25) mmol/L ABG Total CO2 29 H (19-24) mmol/L ABG O2 Saturation 93.8 L (94-97) % Hemoglobin 8.4 L (13.0-17.5) gm/dL Anion Gap (4.00-12.00) mmol/L BUN (9.0-27.0) mg/dL Creatinine (0.6-1.5) mg/dL Est GFR (CKD-EPI) (>=60) BUN/Creatinine Ratio (12.00-20.00) Ratio Glucose (70-110) mg/dL POC Glucose (mg/dL) (70-110) mg/dL Troponin I 0.051 H* 0.059 H* (0.000-0.034) ng/mL 12/16/24 12/17/24 12/17/24 Range/Units 20:11 04:26 04:26 RBC 2.63 L (4.40-5.60) X 10*6/uL Hgb 8.1 L (13.0-17.0) g/dL Hct 24.8 L (39.6-50.0) % RDW 15.9 H (11.5-14.5) % Plt Count 136 L (140-440) X 10*3/uL MPV 13.0 H (9.5-12.2) FL Lymphocytes # 0.71 L (0.90-5.00) X 10*3/uL Eosinophils # 0.01 L (0.04-0.35) X 10*3/uL ABG pH (7.35-7.45) ABG pO2 (83-108) mmHg ABG HCO3 (21-25) mmol/L ABG Total CO2 (19-24) mmol/L ABG O2 Saturation (94-97) % Hemoglobin (13.0-17.5) gm/dL Anion Gap 12.60 H (4.00-12.00) mmol/L BUN 37.7 H (9.0-27.0) mg/dL Creatinine 6.7 H (0.6-1.5) mg/dL Est GFR (CKD-EPI) 10 L (>=60) BUN/Creatinine Ratio 5.63 L (12.00-20.00) Ratio Glucose 128 H (70-110) mg/dL POC Glucose (mg/dL) 147 H (70-110) mg/dL Troponin I (0.000-0.034) ng/mL 12/17/24 Range/Units 07:01 RBC (4.40-5.60) X 10*6/uL Hgb (13.0-17.0) g/dL Hct (39.6-50.0) % RDW (11.5-14.5) % Plt Count (140-440) X 10*3/uL MPV (9.5-12.2) FL Lymphocytes # (0.90-5.00) X 10*3/uL Eosinophils # (0.04-0.35) X 10*3/uL ABG pH (7.35-7.45) ABG pO2 (83-108) mmHg ABG HCO3 (21-25) mmol/L ABG Total CO2 (19-24) mmol/L ABG O2 Saturation (94-97) % Hemoglobin (13.0-17.5) gm/dL Anion Gap (4.00-12.00) mmol/L BUN (9.0-27.0) mg/dL Creatinine (0.6-1.5) mg/dL Est GFR (CKD-EPI) (>=60) BUN/Creatinine Ratio (12.00-20.00) Ratio Glucose (70-110) mg/dL POC Glucose (mg/dL) 117 H (70-110) mg/dL Troponin I (0.000-0.034) ng/mL Assessment and Plan Assessment: 1. History of right upper extremity infected dialysis graft status post surgical explantation 2. End-stage renal disease on hemodialysis per tunneled catheter 3. Altered mental status changes Plan: [place] removed from right upper extremity without complication. No signs of infection left toe. Palpable DP pulses. Patient can follow with his vascular surgeon outpatient. Thank you for this consultation, we will sign off at this time. The impression and plan of care has been dictated as directed. Dr.Cuello Goldberg performed a history and examination of this patient, discussed the same with the dictator. I agree with the dictator's note ,documented as a scribe. Any additional findings or plans will be noted.
--- NOTE | 2024-12-17 11:04 | P.NPCON ---
History of Present Illness - Reason for Consult end stage renal disease - History of Present Illness Reason for consultation: End-stage renal disease History of present illness: Patient is a 44-year-old male seen in new consultation for end-stage renal disease. He is maintained on hemodialysis on Friday schedule. Did not miss any outpatient hemodialysis treatments. Patient came to the hospital due to altered mental status. According to the family member, yesterday morning when patient woke up he was confused. He was not alert and oriented. She is subsequently brought into the hospital. Per family member, there is concern that patient took his mother's medications by accident including hydrocodone. Patient does have history of recent MRSA bacteremia and had his AV graft removed. He has been receiving daptomycin outpatient with dialysis. Currently using permacath for dialysis. Patient is currently resting in bed. Still somewhat confused. Patient has longstanding history of diabetes. Also has history of coronary disease with cardiac stents. Vital signs are stable. General: Resting in bed. HEENT: Head exam is unremarkable. LUNGS: No audible rhonchi or wheezes. HEART: Rate and Rhythm are regular. ABDOMEN: Nontender. EXTREMITITES: No edema. Past Medical History Past Medical History: Coronary Artery Disease (CAD), Heart Failure, Eye Disorder, GERD/Reflux, Hyperlipidemia, Hypertension, Myocardial Infarction ([place]), Renal Disease, Respiratory Disorder Additional Past Medical History / Comment(s): chronic kidney injury/acute anemia/advanced CAD/valvular disease/severe pulmonary htn/abnormal liver test/hyperlipidemia. Other hx: IDDM type II, pt states informed he had kidney disease in Feb, 2020 then ESRD diagnosed 05/09/20 with hemodialysis M/W/F,neuropathy bilateral feet, L foot ulcer with debridements, L eye blindness d/t diabetic retinopathy, ischemic cardiomyopathy, anasarca/lower leg edema. Patient admitted Oct 21 2024 with RSV and Bacteremia(MRSA in blood). Developed right arm Hematoma above his fistula and went into Cardiac Arrest when they gave him anesthesia to drain Hematoma-Oct. Fistula has since been removed Nov 05, 2024. Last Myocardial Infarction Date:: 03/30/2018 History of Any Multi-Drug Resistant Organisms: None Reported Date of last positivie culture/infection: 10/31/24 MDRO Source:: blood, sputum Past Surgical History: Heart Catheterization With Stent Additional Past Surgical History / Comment(s): 05/17/20 R subclavian hemodialysis catheter, debridements L foot wound, R eye surgery-pt believes to remove cataract, SEAN fistula-removal of fistula. . ISIDORO on November 04, 2024. Right subclavian Catheter Oct 23, 2024 Past Anesthesia/Blood Transfusion Reactions: No Reported Reaction Additional Past Anesthesia/Blood Transfusion Reaction / Comment(s): During 3rd debridement L foot ulcer Date of Last Stent Placement:: 03/31/2018 Past Psychological History: No Psychological Hx Reported Additional Psychological History / Comment(s): Pt recently moved up from [place] to live with his mother. He is applying for disability and having difficulty with the forms. Pt's car recently has broken down and has not been able to get it fixed, missed dialysis d/t ride problem and unable to get to [facility] for dialysis. Mother states pt can use bus to get to local appts. Smoking Status: Never smoker Past Alcohol Use History: None Reported Past Drug Use History: None Reported - Past Family History Mother Family Medical History: Diabetes Mellitus, Hyperlipidemia, Hypertension Father Family Medical History: Diabetes Mellitus, Hypertension Medications and Allergies Home Medications Medication Instructions Recorded Confirmed Type Nitroglycerin Sl Tabs [Nitrostat] 0.4 mg SL Q5M PRN 05/09/20 12/16/24 History Aspirin 81 mg PO DAILY #30 tab 06/17/24 12/16/24 Rx carvediloL [Coreg] 50 mg PO BID-W/MEALS 08/28/24 12/16/24 History cloNIDine 0.3 MG/24HR PATCH 1 patch TRANSDERM WEEKLY 08/28/24 12/16/24 History [Catapres-TTS] Calcium Carbonate [Tums] 1,000 mg PO Q4HR PRN tab 11/24/24 12/16/24 Rx Mag Hydrox/Al Hydrox/Simeth 15 ml PO Q6HR PRN ml 11/24/24 12/16/24 Rx [Maalox] Midodrine [ProAmatine] 5 mg PO DAILY PRN #30 tab 11/24/24 12/16/24 Rx Torsemide [Demadex] 40 mg PO DAILY #30 tab 11/24/24 12/16/24 Rx amLODIPine [Norvasc] 10 mg PO DAILY #30 tab 11/24/24 12/16/24 Rx Cyclobenzaprine [Flexeril] 5 mg PO TID PRN 12/16/24 12/16/24 History DAPTOmycin [Cubicin] 800 mg IVPB MOWEFR 12/16/24 12/17/24 History Isosorbide Dinitrate [Isordil] 10 mg PO TID 12/16/24 12/16/24 History Pantoprazole [Protonix] 40 mg PO DAILY PRN 12/16/24 12/16/24 History Sennosides [Senokot] 8.6 mg PO BID PRN 12/16/24 12/16/24 History hydrALAZINE HCL [Apresoline] 50 mg PO QID PRN 12/16/24 12/16/24 History Methoxy Peg-Epoetin Beta [Mircera] 100 mcg IV Q14D 12/17/24 12/17/24 History Allergies Allergy/AdvReac Type Severity Reaction Status Date / Time nickel Allergy Rash/Hives Verified 12/16/24 10:46 Physical Exam Vitals: Vital Signs Temp Pulse Pulse Resp BP BP Pulse Ox 12/17/24 07:01 79 20 156/91 100 12/17/24 01:35 99.7 F H 85 18 158/88 91 L 12/16/24 19:35 98.3 F 78 20 139/72 97 12/16/24 17:45 100 12/16/24 17:33 97.8 F 76 19 168/97 100 12/16/24 17:13 74 18 159/10 98 12/16/24 16:54 97.8 F 76 18 166/99 98 12/16/24 16:00 75 18 160/101 98 12/16/24 15:45 76 20 160/101 100 12/16/24 13:20 98.3 F 80 18 189/114 100 12/16/24 11:07 80 18 184/111 96 Intake and Output 12/16/24 12/17/24 12/17/24 22:59 06:59 14:59 Intake Total 120 Balance 120 Intake: Oral 120 Other: Weight 82.5 kg 82.5 kg Results - Lab Results Most recent lab results ABG pH 7.51 (7.35-7.45) H 12/16/24 12:20 ABG pCO2 35 mmHg (35-45) 12/16/24 12:20 ABG pO2 60 mmHg (83-108) L 12/16/24 12:20 ABG HCO3 28 mmol/L (21-25) H 12/16/24 12:20 ABG O2 Saturation 93.8 % (94-97) L 12/16/24 12:20 Calcium 9.3 mg/dL (8.7-10.3) 12/17/24 04:26 Phosphorus 4.0 mg/dL (2.5-4.5) 12/16/24 10:12 Magnesium 2.1 mg/dL (1.6-2.3) 12/16/24 10:12 12/17/24 04:26 12/17/24 04:26 Assessment and Plan Plan: Assessment: 1. End-stage renal disease maintained on hemodialysis on Friday schedule. 2. Recent MRSA bacteremia status post removal of AV graft. Maintained on daptomycin. 3. Metabolic encephalopathy possibly from overdose of opioids. 4. Anemia of chronic kidney disease. 5. Diabetes mellitus. 6. Coronary artery disease with cardiac stents. 7. Hypertension with chronic kidney disease. Plan: Hemodialysis today. Check phosphorus level. Add Aranesp. ID consulted for antibiotics management. Follow-up cultures. Thank you for the consultation. I will continue to follow the patient with you during his hospital stay.
--- NOTE | 2024-12-17 11:11 | P.PN ---
Subjective History of Present Illness This is a pleasant 44 years old -Thai male with past medical history of end-stage renal disease on hemodialysis. Presents because of altered mental status. Patient Poor historian and most of the information were obtained from the which is at bedside. Patient looks weak and lethargic. He knows it is 2024 but slow to respond could not tell where he is at and the name of the president. He went for hemodialysis at 6 PM however he was so weak and sleepy and hence was for him to wake him up between 4 and 10 PM after she came from work. Found to have also more weak and more lethargic and kind of loopy and floaty therefore stand up or walk he cannot. Because of this she decided to bring him to the [facility] Patient denies any specific GI symptoms. He is not making urine No chest pain no dyspnea. No headache dizziness weakness or numbness. Is getting hemodialysis 4 times a week Also the was suspicion he took extra medication from his [id number] medication including Robaxin and [place]. He follow-up with vascular surgery and infectious disease for his right upper extremity wound. He is getting antibiotics with hemodialysis. He is not on oxygen at home. On admission his hypertensive with a blood pressure 184/111. He is afebrile. Labs including CBC, BMP and LFT were unremarkable except for mild anemia at 9 although his baseline is 6-7. Platelet count slightly low at 149 and creatinine 5.2. Troponin is elevated with a flat affect at 0.05 at 0.059. proBNP significantly elevated [id number] CT of the brain is negative for acute process. Chest x-ray showing acute pulmonary congestion suspicious for CHF. pH is elevated at 7.54 CO2 is normal at 35 increased pO2 at 60. 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 Echocardiogram from 08/2024 ejection fraction 35 to 40% with left ventricular hypertrophy and mild to moderate mitral regurgitation and moderate pulmonary hypertension and moderately dilated right ventricle 12/17 Patient today is more confused compared to yesterday. This was confirmed with the at bedside. Last night he ate dinner well and he was similar to the orning However today he barely respond or answer questions. He is not even following command. Although he is awake and calm. Patient has low-grade temperature of 99.7. Blood pressure stable. CBC stable, hemoglobin 8.1 which is at baseline. Patient evaluated by vascular surgery and staple removed from his right upper extremity wound. There was suspicion of infection in the left fourth toe others missing toenail. No other obvious source of infection. Patient was placed on IV daptomycin for now. Patient is going for hemodialysis today Neuro service was consulted for worsening altered mental status today. Repeat CT of the brain is requested Review of system: N/AA Active Medications Generic Name Dose Route Start Last Admin Trade Name Freq PRN Reason Stop Dose Admin Amlodipine Besylate 10 mg 12/16/24 11:45 12/17/24 09:34 Amlodipine 10 Mg Tab PO 10 mg DAILY KATHERINE Administration Aspirin 81 mg 12/16/24 11:45 12/17/24 09:34 Aspirin 81 Mg PO 81 mg DAILY KATHERINE Administration Calcium Carbonate/Glycine 1,000 mg 12/16/24 11:39 12/16/24 13:31 Calcium Carbonate 500 Mg Chewable PO 1,000 mg Q4HR PRN Administration Dyspepsia Carvedilol 50 mg 12/16/24 11:45 12/17/24 09:34 Carvedilol 12.5 Mg Tab PO 50 mg BID-W/MEALS KATHERINE Administration Clonidine HCl 1 patch 12/23/24 09:00 Clonidine 0.3 Mg/24hr Patch TRANSDERM WEEKLY KATHERINE Darbepoetin Levy 40 mcg 12/17/24 11:15 Darbepoetin Levy 40 Mcg/0.4 Ml Syringe SQ Q7D KATHERINE Dextrose/Water 25 ml 12/16/24 18:49 Dextrose 50% Syringe 50 Ml IVP PER PROTOCOL PRN Hypoglycemia Protocol Dextrose/Water 50 ml 12/16/24 18:49 Dextrose 50% Syringe 50 Ml IVP PER PROTOCOL PRN Hypoglycemia Protocol Hydralazine HCl 50 mg 12/16/24 11:39 12/16/24 13:31 Hydralazine Hcl 50 Mg Tab PO 50 mg QID PRN Administration SBP over 150 Daptomycin 500 mg/ Sodium 50 mls @ 100 mls/hr 12/17/24 12:00 Chloride IVPB Q48H KATHERINE Protocol Insulin Human Lispro 0 unit 12/16/24 21:00 12/17/24 07:11 Insulin Lispro (Humalog) 100 Unit/Ml 10 Ml Vl SQ Not Given ACHS KATHERINE Protocol Isosorbide Dinitrate 10 mg 12/16/24 11:45 12/17/24 09:34 Isosorbide Dinitrate 10 Mg Tab PO 10 mg TID KATHERINE Administration Naloxone HCl 0.2 mg 12/16/24 11:31 Naloxone 0.4 Mg/Ml 1 Ml Vial IV Q2M PRN Opioid Reversal Pantoprazole Sodium 40 mg 12/16/24 11:39 Pantoprazole 40 Mg Tablet PO DAILY PRN Heartburn Senna 8.6 mg 12/16/24 11:39 Sennosides 8.6 Mg Tab PO BID PRN Constipation Torsemide 40 mg 12/16/24 11:45 12/17/24 09:34 Torsemide 20 Mg Tab PO 40 mg DAILY KATHERINE Administration Objective - Vital Signs Vital signs: Vital Signs Temp 99.7 F H 12/17/24 01:35 Pulse 79 12/17/24 07:01 Resp 20 12/17/24 07:01 BP 156/91 12/17/24 07:01 Pulse Ox 100 12/17/24 07:01 FiO2 Intake & Output 12/16/24 12/17/24 12/17/24 18:59 06:59 18:59 Intake Total 120 Balance 120 Weight 81.647 kg 82.5 kg Intake: Oral 120 - Exam GENERAL: The patient is more confused and not answering questions, not in any acute distress. Well developed, well nourished. HEENT: Pupils are round and equally reacting to light. EOMI. No scleral icterus. No conjunctival pallor. Normocephalic, atraumatic. No pharyngeal erythema. No thyromegaly. CARDIOVASCULAR: S1 and S2 present. No murmurs, rubs, or gallops. -PULMONARY: Chest is clear to auscultation, no wheezing , no crackles. Right upper chest permacath ABDOMEN: Soft, nontender, nondistended, normoactive bowel sounds. No palpable organomegaly. MUSCULOSKELETAL: No joint swelling or deformity. -EXTREMITIES: No cyanosis, clubbing, or pedal edema. Right upper extremity wound closed, lan removed NEUROLOGICAL: Gross neurological examination did not reveal any focal deficits. SKIN: No rashes. no petechiae. - Labs CBC & Chem 7: 12/17/24 04:26 12/17/24 04:26 Labs: Abnormal Lab Results - Last 24 Hours (Table) 12/16/24 12/16/24 12/16/24 Range/Units 12:07 12:20 15:47 RBC (4.40-5.60) X 10*6/uL Hgb (13.0-17.0) g/dL Hct (39.6-50.0) % RDW (11.5-14.5) % Plt Count (140-440) X 10*3/uL MPV (9.5-12.2) FL Lymphocytes # (0.90-5.00) X 10*3/uL Eosinophils # (0.04-0.35) X 10*3/uL ABG pH 7.51 H (7.35-7.45) ABG pO2 60 L (83-108) mmHg ABG HCO3 28 H (21-25) mmol/L ABG Total CO2 29 H (19-24) mmol/L ABG O2 Saturation 93.8 L (94-97) % Hemoglobin 8.4 L (13.0-17.5) gm/dL Anion Gap (4.00-12.00) mmol/L BUN (9.0-27.0) mg/dL Creatinine (0.6-1.5) mg/dL Est GFR (CKD-EPI) (>=60) BUN/Creatinine Ratio (12.00-20.00) Ratio Glucose (70-110) mg/dL POC Glucose (mg/dL) (70-110) mg/dL Troponin I 0.051 H* 0.059 H* (0.000-0.034) ng/mL 12/16/24 12/17/24 12/17/24 Range/Units 20:11 04:26 04:26 RBC 2.63 L (4.40-5.60) X 10*6/uL Hgb 8.1 L (13.0-17.0) g/dL Hct 24.8 L (39.6-50.0) % RDW 15.9 H (11.5-14.5) % Plt Count 136 L (140-440) X 10*3/uL MPV 13.0 H (9.5-12.2) FL Lymphocytes # 0.71 L (0.90-5.00) X 10*3/uL Eosinophils # 0.01 L (0.04-0.35) X 10*3/uL ABG pH (7.35-7.45) ABG pO2 (83-108) mmHg ABG HCO3 (21-25) mmol/L ABG Total CO2 (19-24) mmol/L ABG O2 Saturation (94-97) % Hemoglobin (13.0-17.5) gm/dL Anion Gap 12.60 H (4.00-12.00) mmol/L BUN 37.7 H (9.0-27.0) mg/dL Creatinine 6.7 H (0.6-1.5) mg/dL Est GFR (CKD-EPI) 10 L (>=60) BUN/Creatinine Ratio 5.63 L (12.00-20.00) Ratio Glucose 128 H (70-110) mg/dL POC Glucose (mg/dL) 147 H (70-110) mg/dL Troponin I (0.000-0.034) ng/mL 12/17/24 Range/Units 07:01 RBC (4.40-5.60) X 10*6/uL Hgb (13.0-17.0) g/dL Hct (39.6-50.0) % RDW (11.5-14.5) % Plt Count (140-440) X 10*3/uL MPV (9.5-12.2) FL Lymphocytes # (0.90-5.00) X 10*3/uL Eosinophils # (0.04-0.35) X 10*3/uL ABG pH (7.35-7.45) ABG pO2 (83-108) mmHg ABG HCO3 (21-25) mmol/L ABG Total CO2 (19-24) mmol/L ABG O2 Saturation (94-97) % Hemoglobin (13.0-17.5) gm/dL Anion Gap (4.00-12.00) mmol/L BUN (9.0-27.0) mg/dL Creatinine (0.6-1.5) mg/dL Est GFR (CKD-EPI) (>=60) BUN/Creatinine Ratio (12.00-20.00) Ratio Glucose (70-110) mg/dL POC Glucose (mg/dL) 117 H (70-110) mg/dL Troponin I (0.000-0.034) ng/mL Assessment and Plan Assessment: Altered mental status, waxing and waning and improving however patient not back to baseline could be toxic metabolic encephalopathy Acute hypoxic respiratory failure, improved Acute diastolic CHF, improved with dialysis End-stage renal disease on hemodialysis recent history of MRSA bacteremia History of cardiac arrest x 2 Recent surgical resection of his infected right upper extremity graft with surgical wound looks closed and healthy. And also is healing. Hypertension, uncontrolled on admission Chronic anemia. Plan: Patient started on daptomycin with blood cultures pending Repeat CAT scan of the brain with neurology consult Continue with neurocheck. Continue with hemodialysis per cured meats supervisor Infectious disease team and vascular surgery team were consulted Continue with antihypertensive medication. Cardiac team consult as patient has history of cardiac arrest labs and medication were reviewed.. Continue same treatment. Continue with symptomatic treatment. Resume home medication. Monitor labs and vitals. DVT and GI prophylaxis. Further recommendations as per clinical course of the patient DVT prophylaxis: Subcutaneous heparin GI Prophylaxis: Ppi Prognosis is guarded
--- NOTE | 2024-12-17 12:02 | CT ---
EXAMINATION TYPE: CT brain wo con DATE OF EXAM: 12/17/2024 11:11 AM COMPARISON: 12/16/2024 CLINICAL INDICATION: Male, 44 years old with history of Altered mental status, AMS TECHNIQUE: CT of the brain is performed utilizing 3 mm thick sections through the posterior fossa and 3 mm thick sections through the remaining calvarium. Study is performed within 24 hours of arrival to the hospital. Contrast used: mL of , (none if empty) CT DLP: 2011.6 mGycm, Automated exposure control for dose reduction was used. FINDINGS: No abnormal hyperdensity is present to suggest an acute intracranial hemorrhage. No mass lesion is evident. No acute infarcts are evident. Ventricles and sulci are appropriate for the patient age. Paranasal sinuses and mastoid air cells within the [id number] are clear. Mild right mastoiditis present. IMPRESSION: 1. No acute intracranial process. Follow up MRI can be performed as clinically indicated. 2. Clinical correlation for right mastoiditis. [facility], , 12/17/2024 12:00 PM
[2024-12-17 12:10] LABS: Glucose,Whole Blood 110 mg/dL (70-110)
--- NOTE | 2024-12-17 15:11 | P.CONS ---
History of Present Illness - Reason for Consult Consult date: 12/16/24 Recent pneumonia with sepsis Requesting physician: Alena Arcos - Chief Complaint Confusion x 1 day - History of Present Illness Patient is a 44-year-old -[place] male with multiple comorbidities including end-stage renal disease on dialysis with recent admission to the hospital prolonged stay he did have MRSA bacteremia related to the right upper extremity infected graft status post surgical removal patient did clear his bacteremia with a negative blood culture on 11/13/2024 at the patient has been getting daptomycin through the dialysis. Patient has been brought to the hospital concerning for mental status changes that apparently started since around 11 AM the day of presentation the hospital patient on presentation to the hospital was afebrile and no fever have been called subsequently patient is awake and oriented he is in the hospital with nonspecific denies having any headache no chest pain shortness of breath or cough no abdominal pain and no diarrhea has been reported on presentation to the hospital patient did have a white count of 6.6 creatinine is 5.24 liver isms are normal serum alcohol level is less than 10 Tylenol level is less than 10 patient did have a chest x-ray finding consistent with a CHF exacerbation CT of the brain no acute intracranial hemorrhage or midline shift seen ID was consulted for management with antibiotic therapy Review of Systems Positive points has been mentioned in HPI complete review could not be obtained because of his underlying mental status Past Medical History Past Medical History: Coronary Artery Disease (CAD), Heart Failure, Eye Disorder, GERD/Reflux, Hyperlipidemia, Hypertension, Myocardial Infarction ([place]), Renal Disease, Respiratory Disorder Additional Past Medical History / Comment(s): chronic kidney injury/acute anemia/advanced CAD/valvular disease/severe pulmonary htn/abnormal liver test/h yperlipidemia. Other hx: IDDM type II, pt states informed he had kidney disease in Feb, 2020 then ESRD diagnosed 05/09/20 with hemodialysis M/W/F,neuropathy bilateral feet, L foot ulcer with debridements, L eye blindness d/t diabetic retinopathy, ischemic cardiomyopathy, anasarca/lower leg edema. Last Myocardial Infarction Date:: 03/30/2018 History of Any Multi-Drug Resistant Organisms: None Reported Year Discovered:: 10/31/24 MDRO Source:: blood, sputum Past Surgical History: Heart Catheterization With Stent Additional Past Surgical History / Comment(s): 05/17/20 R subclavian hemodialysis catheter, debridements L foot wound, R eye surgery-pt believes to remove cataract, SEAN fistula Past Anesthesia/Blood Transfusion Reactions: No Reported Reaction Additional Past Anesthesia/Blood Transfusion Reaction / Comm: During 3rd debridement L foot ulcer Date of Last Stent Placement:: 03/31/2018 Past Psychological History: No Psychological Hx Reported Smoking Status: Never smoker Past Alcohol Use History: None Reported Past Drug Use History: None Reported - Past Family History Mother Family Medical History: Diabetes Mellitus, Hyperlipidemia, Hypertension Father Family Medical History: Diabetes Mellitus, Hypertension Medications and Allergies Home Medications Medication Instructions Recorded Confirmed Type Nitroglycerin Sl Tabs [Nitrostat] 0.4 mg SL Q5M PRN 05/09/20 12/16/24 History Aspirin 81 mg PO DAILY #30 tab 06/17/24 12/16/24 Rx carvediloL [Coreg] 50 mg PO BID-W/MEALS 08/28/24 12/16/24 History cloNIDine 0.3 MG/24HR PATCH 1 patch TRANSDERM WEEKLY 08/28/24 12/16/24 History [Catapres-TTS] Calcium Carbonate [Tums] 1,000 mg PO Q4HR PRN tab 11/24/24 12/16/24 Rx Mag Hydrox/Al Hydrox/Simeth 15 ml PO Q6HR PRN ml 11/24/24 12/16/24 Rx [Maalox] Midodrine [ProAmatine] 5 mg PO DAILY PRN #30 tab 11/24/24 12/16/24 Rx Torsemide [Demadex] 40 mg PO DAILY #30 tab 11/24/24 12/16/24 Rx amLODIPine [Norvasc] 10 mg PO DAILY #30 tab 11/24/24 12/16/24 Rx Cyclobenzaprine [Flexeril] 5 mg PO TID PRN 12/16/24 12/16/24 History DAPTOmycin [Cubicin] 800 mg IVPB MOWEFR 12/16/24 12/17/24 History Isosorbide Dinitrate [Isordil] 10 mg PO TID 12/16/24 12/16/24 History Pantoprazole [Protonix] 40 mg PO DAILY PRN 12/16/24 12/16/24 History Sennosides [Senokot] 8.6 mg PO BID PRN 12/16/24 12/16/24 History hydrALAZINE HCL [Apresoline] 50 mg PO QID PRN 12/16/24 12/16/24 History Methoxy Peg-Epoetin Beta [Mircera] 100 mcg IV Q14D 12/17/24 12/17/24 History Allergies Allergy/AdvReac Type Severity Reaction Status Date / Time nickel Allergy Rash/Hives Verified 12/16/24 10:46 Physical Exam Vitals: Vital Signs Temp Pulse Resp BP Pulse Ox 12/16/24 11:07 80 18 184/111 96 12/16/24 10:37 80 18 181/106 95 12/16/24 09:09 98.1 F 81 20 182/111 100 Intake and Output 12/15/24 12/16/24 12/16/24 22:59 06:59 14:59 Other: Weight 81.647 kg GENERAL DESCRIPTION: Middle-age lying in bed, no distress. No tachypnea or accessory muscle of respiration use. HEENT: Shows Pallor , no scleral icterus. Oral mucous membrane is dry. NECK: Trachea central, no thyromegaly. LUNGS: Unlabored breathing. Clear to auscultation anteriorly. No wheeze or crackle. HEART: S1, S2, regular rate and rhythm. No loud murmur ABDOMEN: Soft, no tenderness , guarding or rigidity, no organomegaly EXTREMITIES: Right upper extremity incision is intact lan are still there SKIN: No rash, no masses palpable. NEUROLOGICAL: The patient is sleepy but arousable no neck rigidity, mood and affect normal. Results CBC & Chem 7: 12/17/24 04:26 12/17/24 04:26 Labs: Abnormal Lab Results - Last 24 Hours (Table) 12/16/24 12/16/24 12/16/24 Range/Units 09:25 10:12 10:12 RBC 3.03 L (4.30-5.90) m/uL Hgb 9.0 L D (13.0-17.5) gm/dL Hct 30.2 L (39.0-53.0) % MCHC 29.8 L (31.0-37.0) g/dL RDW 16.1 H (11.5-15.5) % Plt Count 149 L D (150-450) k/uL Lymphocytes # 0.8 L (1.0-4.8) k/uL PT 13.2 H (10.0-12.5) sec INR 1.2 H (<1.2) APTT 30.1 H (22.0-30.0) sec Sodium (137-145) mmol/L Chloride (98-107) mmol/L BUN (9-20) mg/dL Creatinine (0.66-1.25) mg/dL Glucose (74-99) mg/dL POC Glucose (mg/dL) 161 H (70-110) mg/dL Alkaline Phosphatase (38-126) U/L Troponin I (0.000-0.034) ng/mL Total Protein (6.3-8.2) g/dL 12/16/24 12/16/24 Range/Units 10:12 10:12 RBC (4.30-5.90) m/uL Hgb (13.0-17.5) gm/dL Hct (39.0-53.0) % MCHC (31.0-37.0) g/dL RDW (11.5-15.5) % Plt Count (150-450) k/uL Lymphocytes # (1.0-4.8) k/uL PT (10.0-12.5) sec INR (<1.2) APTT (22.0-30.0) sec Sodium 135 L (137-145) mmol/L Chloride 96 L (98-107) mmol/L BUN 33 H (9-20) mg/dL Creatinine 5.24 H (0.66-1.25) mg/dL Glucose 158 H (74-99) mg/dL POC Glucose (mg/dL) (70-110) mg/dL Alkaline Phosphatase 286 H (38-126) U/L Troponin I 0.053 H* (0.000-0.034) ng/mL Total Protein 8.3 H (6.3-8.2) g/dL Assessment and Plan (1) Mental status alteration Current Visit: Yes Status: Acute Code(s): R41.82 - ALTERED MENTAL STATUS, UNSPECIFIED SNOMED Code(s): 878216930 (2) Bacteremia due to methicillin resistant Staphylococcus aureus Current Visit: No Status: Acute Code(s): R78.81 - BACTEREMIA; B95.62 - METHICILLIN RESIS STAPH INFCT CAUSING DISEASES [facility] SNOMED Code(s): 61528364945494041 Plan: 1patient with a recent history of MRSA infection secondary to right upper extremity infected graft which has been removed and the patient did clear his bacteremia as of 11/13/2024 and he was supposed to be at least on a 4-week course of IV daptomycin with the patient seem to have almost completed now presenting to the hospital with confusion mental status changes did not have any fever or any elevated white count with initial workup has been negative so far 2we will repeat blood cultures to make sure no evidence of recurrence of his bacteremia 3for now continue with the daptomycin while waiting for the workup to be completed We will follow on clinical condition and cultures to further adjust medication if needed Thank you for this consultation we will follow the patient along with you Dictation was produced using [employer] dictation software. please excuse any grammatical, word or spelling errors.
--- NOTE | 2024-12-17 15:13 | P.PN ---
Subjective Progress Note Date: 12/17/24 Principal diagnosis: Reason for follow-up is a recent MRSA bacteremia Patient is a 44-year-old -Citizen Of [place] male with multiple comorbidities including end-stage renal disease on dialysis with recent admission to the hospital for MRSA bacteremia second right upper extremity infected, which has been removed now presented to the hospital with confusion mental status changes. On today's evaluation that is 12/17/2024, the patient did have a low-grade fever of 99.7 F at 1:35 PM the patient has been afebrile since then he is breathing comfortably on room air Sleepy but arousable denies any chest pain shortness of breath or cough no abdominal pain no diarrhea. Patient did have white count of 6.25 creatinine 6.7 blood culture obtained so far negative Objective - Vital Signs Vital signs: Vital Signs Temp 98.5 F 12/17/24 12:10 Pulse 81 12/17/24 12:10 Resp 18 12/17/24 12:10 BP 166/94 12/17/24 12:10 Pulse Ox 100 12/17/24 12:10 FiO2 Intake & Output 12/16/24 12/17/24 12/17/24 18:59 06:59 18:59 Intake Total 120 480 Balance 120 480 Weight 81.647 kg 82.5 kg Intake: Oral 120 480 - Exam GENERAL DESCRIPTION: Middle-age male lying in bed in no distress RESPIRATORY SYSTEM: Unlabored breathing , decreased breath sounds at bases HEART: S1 S2 regular rate and rhythm , ABDOMEN: Soft , no tenderness EXTREMITIES: Left fourth toe nail is missing but no significant swelling redness or drainage was noticed - Labs CBC & Chem 7: 12/17/24 04:26 12/17/24 04:26 Labs: Abnormal Lab Results - Last 24 Hours (Table) 12/16/24 12/16/24 12/17/24 Range/Units 15:47 20:11 04:26 RBC 2.63 L (4.40-5.60) X 10*6/uL Hgb 8.1 L (13.0-17.0) g/dL Hct 24.8 L (39.6-50.0) % RDW 15.9 H (11.5-14.5) % Plt Count 136 L (140-440) X 10*3/uL MPV 13.0 H (9.5-12.2) FL Lymphocytes # 0.71 L (0.90-5.00) X 10*3/uL Eosinophils # 0.01 L (0.04-0.35) X 10*3/uL Anion Gap (4.00-12.00) mmol/L BUN (9.0-27.0) mg/dL Creatinine (0.6-1.5) mg/dL Est GFR (CKD-EPI) (>=60) BUN/Creatinine Ratio (12.00-20.00) Ratio Glucose (70-110) mg/dL POC Glucose (mg/dL) 147 H (70-110) mg/dL Troponin I 0.059 H* (0.000-0.034) ng/mL 12/17/24 12/17/24 Range/Units 04:26 07:01 RBC (4.40-5.60) X 10*6/uL Hgb (13.0-17.0) g/dL Hct (39.6-50.0) % RDW (11.5-14.5) % Plt Count (140-440) X 10*3/uL MPV (9.5-12.2) FL Lymphocytes # (0.90-5.00) X 10*3/uL Eosinophils # (0.04-0.35) X 10*3/uL Anion Gap 12.60 H (4.00-12.00) mmol/L BUN 37.7 H (9.0-27.0) mg/dL Creatinine 6.7 H (0.6-1.5) mg/dL Est GFR (CKD-EPI) 10 L (>=60) BUN/Creatinine Ratio 5.63 L (12.00-20.00) Ratio Glucose 128 H (70-110) mg/dL POC Glucose (mg/dL) 117 H (70-110) mg/dL Troponin I (0.000-0.034) ng/mL Assessment and Plan (1) Mental status alteration Current Visit: Yes Status: Acute Code(s): R41.82 - ALTERED MENTAL STATUS, UNSPECIFIED SNOMED Code(s): 387324792 (2) Bacteremia due to methicillin resistant Staphylococcus aureus Current Visit: No Status: Acute Code(s): R78.81 - BACTEREMIA; B95.62 - METHICILLIN RESIS STAPH INFCT CAUSING DISEASES [facility] SNOMED Code(s): 22373377035160237 Plan: 1patient with a recent history of MRSA infection secondary to right upper extremity infected graft which has been removed and the patient did clear his bacteremia as of 11/13/2024 and he was supposed to be at least on a 4-week course of IV daptomycin with the patient seem to have almost completed now presenting to the hospital with confusion mental status changes did not have any fever or any elevated white count with initial workup has been negative so far 2we will repeat blood cultures to make sure no evidence of recurrence of his bacteremia 3patient did have a low-grade fever early this morning subsequently resolved cultures are currently pending we will continue with the daptomycin and monitor clinical course closely Dictation was produced using [employer] dictation software. please excuse any grammatical, word or spelling errors. Time with Patient: Less than 30
--- NOTE | 2024-12-17 16:08 | P.CNNES ---
History of Present Illness Consult date: 12/17/24 Requesting physician: Mer Tony Reason for Consult: ams History of Present Illness: This is a 44-year-old gentleman who presented emergency department because of altered mental status. Patient's is at bedside who provides the history. According to the patient had dialysis on Friday in the morning and was doing well then by later afternoon nighttime patient was confused had a funny last and just did not seem well. The next day he also continues to be confused. Patient does not have any history of stroke. According to the last month he had a prolonged hospital visit for at least 33 days in which the patient had RSV as well as MRSA and was found to have abscess in the right upper extremity and had to be placed on antibiotic. It seems that yesterday when he was in the hospital he was responding appropriately to the primary attending according to the patient's . Has underlying history of diabetes as well as diabetic retinopathy of the left eye. Some of the work-up during this hospital visit consisted of: The patient had low-grade fever of 99.7 Fahrenheit. Otherwise no other fevers during this hospital visit White blood cell is within normal range Hemoglobin was 9.0 and today is 8.1 Creatinine is 5.24 Serum glucose is 158 AST and ALT is within normal limits Sodium is 135 Ammonia is [address] of the head is reported as no acute intracranial hemorrhage or midline shift is seen. Stable mild nonspecific white matter changes. I personally reviewed the image of the CT and patient has an old lacunar over the right basal ganglia Review of Systems Limited but as per HPI. Past Medical History Past Medical History: Coronary Artery Disease (CAD), Heart Failure, Eye Disorder, GERD/Reflux, Hyperlipidemia, Hypertension, Myocardial Infarction ([place]), Renal Disease, Respiratory Disorder Additional Past Medical History / Comment(s): chronic kidney injury/acute anemia/advanced CAD/valvular disease/severe pulmonary htn/abnormal liver test/hyperlipidemia. Other hx: IDDM type II, pt states informed he had kidney disease in Feb, 2020 then ESRD diagnosed 05/09/20 with hemodialysis M/W/F,neuropathy bilateral feet, L foot ulcer with debridements, L eye blindness d/t diabetic retinopathy, ischemic cardiomyopathy, anasarca/lower leg edema. Last Myocardial Infarction Date:: 03/30/2018 History of Any Multi-Drug Resistant Organisms: None Reported Date of last positivie culture/infection: 10/31/24 MDRO Source:: blood, sputum Past Surgical History: Heart Catheterization With Stent Additional Past Surgical History / Comment(s): 05/17/20 R subclavian hemodialysis catheter, debridements L foot wound, R eye surgery-pt believes to remove cataract, SEAN fistula Past Anesthesia/Blood Transfusion Reactions: No Reported Reaction Additional Past Anesthesia/Blood Transfusion Reaction / Comment(s): During 3rd debridement L foot ulcer Date of Last Stent Placement:: 03/31/2018 Past Psychological History: No Psychological Hx Reported Smoking Status: Never smoker Past Alcohol Use History: None Reported Past Drug Use History: None Reported - Past Family History Mother Family Medical History: Diabetes Mellitus, Hyperlipidemia, Hypertension Father Family Medical History: Diabetes Mellitus, Hypertension Medications and Allergies Home Medications Medication Instructions Recorded Confirmed Type Nitroglycerin Sl Tabs [Nitrostat] 0.4 mg SL Q5M PRN 05/09/20 12/16/24 History Aspirin 81 mg PO DAILY #30 tab 06/17/24 12/16/24 Rx carvediloL [Coreg] 50 mg PO BID-W/MEALS 08/28/24 12/16/24 History cloNIDine 0.3 MG/24HR PATCH 1 patch TRANSDERM WEEKLY 08/28/24 12/16/24 History [Catapres-TTS] Calcium Carbonate [Tums] 1,000 mg PO Q4HR PRN tab 11/24/24 12/16/24 Rx Mag Hydrox/Al Hydrox/Simeth 15 ml PO Q6HR PRN ml 11/24/24 12/16/24 Rx [Maalox] Midodrine [ProAmatine] 5 mg PO DAILY PRN #30 tab 11/24/24 12/16/24 Rx Torsemide [Demadex] 40 mg PO DAILY #30 tab 11/24/24 12/16/24 Rx amLODIPine [Norvasc] 10 mg PO DAILY #30 tab 11/24/24 12/16/24 Rx Cyclobenzaprine [Flexeril] 5 mg PO TID PRN 12/16/24 12/16/24 History DAPTOmycin [Cubicin] 800 mg IVPB MOWEFR 12/16/24 12/17/24 History Isosorbide Dinitrate [Isordil] 10 mg PO TID 12/16/24 12/16/24 History Pantoprazole [Protonix] 40 mg PO DAILY PRN 12/16/24 12/16/24 History Sennosides [Senokot] 8.6 mg PO BID PRN 12/16/24 12/16/24 History hydrALAZINE HCL [Apresoline] 50 mg PO QID PRN 12/16/24 12/16/24 History Methoxy Peg-Epoetin Beta [Mircera] 100 mcg IV Q14D 12/17/24 12/17/24 History Allergies Allergy/AdvReac Type Severity Reaction Status Date / Time nickel Allergy Rash/Hives Verified 12/16/24 10:46 Physical Examination - Vital Signs Vital Signs: Vital Signs Temp Pulse Pulse Resp BP BP Pulse Ox 12/17/24 12:10 98.5 F 81 18 166/94 100 12/17/24 07:01 79 20 156/91 100 12/17/24 01:35 99.7 F H 85 18 158/88 91 L 12/16/24 19:35 98.3 F 78 20 139/72 97 12/16/24 17:45 100 12/16/24 17:33 97.8 F 76 19 168/97 100 12/16/24 17:13 74 18 159/10 98 12/16/24 16:54 97.8 F 76 18 166/99 98 12/16/24 16:00 75 18 160/101 98 Intake and Output 12/17/24 12/17/24 12/17/24 06:59 14:59 22:59 Intake Total 120 480 Balance 120 480 Intake: Oral 120 480 Other: Weight 82.5 kg General: Lying in bed and does not appear in acute distress. HENT: Hard to assess but after multiple tries neck is supple. Neuro: Very limited. Patient is severely drowsy but is awake able to voice very briefly. He is o riented to self. Then he just moans. He does not follow commands for the most part. The pupil the right 1 is round about 3 mm reactive to light. The left is opaque and he has diabetic retinopathy that is old. No facial weakness. Motor strength is hard to assess but he is moving all extremities above gravity spontaneously. Otherwise examination is limited I had a hard time performing the reflexes since he is not cooperative. Results - Laboratory Findings CBC and BMP: 12/17/24 04:26 12/17/24 04:26 Abnormal Lab Findings: Abnormal Labs 12/16/24 12/16/24 12/16/24 09:25 10:12 10:12 RBC 3.03 L Hgb 9.0 L D Hct 30.2 L MCHC 29.8 L RDW 16.1 H Plt Count 149 L D MPV Lymphocytes # 0.8 L Eosinophils # PT 13.2 H INR 1.2 H APTT 30.1 H ABG pH ABG pO2 ABG HCO3 ABG Total CO2 ABG O2 Saturation Hemoglobin Sodium Chloride Anion Gap BUN Creatinine Est GFR (CKD-EPI) BUN/Creatinine Ratio Glucose POC Glucose (mg/dL) 161 H Alkaline Phosphatase Troponin I Total Protein 12/16/24 12/16/24 12/16/24 10:12 10:12 12:07 RBC Hgb Hct MCHC RDW Plt Count MPV Lymphocytes # Eosinophils # PT INR APTT ABG pH ABG pO2 ABG HCO3 ABG Total CO2 ABG O2 Saturation Hemoglobin Sodium 135 L Chloride 96 L Anion Gap BUN 33 H Creatinine 5.24 H Est GFR (CKD-EPI) BUN/Creatinine Ratio Glucose 158 H POC Glucose (mg/dL) Alkaline Phosphatase 286 H Troponin I 0.053 H* 0.051 H* Total Protein 8.3 H 12/16/24 12/16/24 12/16/24 12:20 15:47 20:11 RBC Hgb Hct MCHC RDW Plt Count MPV Lymphocytes # Eosinophils # PT INR APTT ABG pH 7.51 H ABG pO2 60 L ABG HCO3 28 H ABG Total CO2 29 H ABG O2 Saturation 93.8 L Hemoglobin 8.4 L Sodium Chloride Anion Gap BUN Creatinine Est GFR (CKD-EPI) BUN/Creatinine Ratio Glucose POC Glucose (mg/dL) 147 H Alkaline Phosphatase Troponin I 0.059 H* Total Protein 12/17/24 12/17/24 12/17/24 04:26 04:26 07:01 RBC 2.63 L Hgb 8.1 L Hct 24.8 L MCHC RDW 15.9 H Plt Count 136 L MPV 13.0 H Lymphocytes # 0.71 L Eosinophils # 0.01 L PT INR APTT ABG pH ABG pO2 ABG HCO3 ABG Total CO2 ABG O2 Saturation Hemoglobin Sodium Chloride Anion Gap 12.60 H BUN 37.7 H Creatinine 6.7 H Est GFR (CKD-EPI) 10 L BUN/Creatinine Ratio 5.63 L Glucose 128 H POC Glucose (mg/dL) 117 H Alkaline Phosphatase Troponin I Total Protein Assessment and Plan Assessment: This is a 44-year-old gentleman who presents emergency department because of altered mental status. According to the after dialysis this once daily in the late afternoon he was confused not acting himself. Seems last month he had extensive prolonged hospital stay and he had abscess in the right upper extremity MRSA as well as had RSV and was hospitalized for 33 days according to the . Today he has low-grade fever but no leukocytosis. Altered mental status: I am concerned about septic encephalopathy. Unsure if patient has further abscess around surgical site for the dialysis. CT head is negative for acute process. History of diabetes mellitus History of diabetic retinopathy over the left eye History of end-stage renal disease on dialysis History of coronary artery disease History of myocardial infarction Hyperlipidemia History of ischemic cardiomyopathy Plan: I ordered a repeat CT of the head. If negative consider MRI Brain. I ordered routine EEG Ordered TSH, vitamin B12 and folate level Is on aspirin 81 mg. If Unknown source of infection consider lumbar puncture. ID is on board Defer the rest of the medical management to primary other specialist. The plan is discussed with patient's who is at bedside and his nurse. Thank you for the consultation. Dr. Read will resume neurology service tomorrow A.M. Time with Patient: Greater than 30
[2024-12-17 16:27] LABS: Glucose,Whole Blood 108 mg/dL (70-110)
[2024-12-17] MEDS: DAPTOmycin 500 MG in SODIUM CHLORIDE 0.9% 50 ML IVPB SCH (16:34)
[2024-12-17] MEDS: DARBEPOETIN ALFA 40 MCG/0.4 ML SYRINGE SQ SCH (16:34)
[2024-12-17] MEDS: MORPHINE SULFATE 2 MG/ML SYRINGE IVP PRN (16:58)
[2024-12-17] MEDS: ONDANSETRON 4 MG/2 ML VIAL IVP PRN (16:59)
[2024-12-17] MEDS ORDERED: LIDOCAINE 2% INJ 20 MG/ML (20 ML MDV) SQ ONE ×2 (17:00→17:05)
[2024-12-17] MEDS: LIDOCAINE 2% (PF) 20 MG/ML 5 ML VIAL SQ ONE ×2 (17:10→17:19)
[2024-12-17] MEDS: LORazepam 2 MG/ML INJ IV PRN (17:16)
--- NOTE | 2024-12-17 17:34 | P.PCN ---
Description of Procedure: Preprocedure diagnosis. Mental status change. Postprocedure diagnosis. As above. Procedure done. Lumbar puncture and collection of cerebrospinal fluid. Anesthesia. Local infiltration with anesthetics. Continuous pulse ox, EKG, blood pressure and verbal communication was maintained with the patient. Blood loss. None. Indication. Discussed the procedure, alternatives, complications which may include infection, nerve damage, paralysis, aggravation of the symptoms especially bleeding in the spine and posterior dural puncture headache with the patient and POA. They understand and questions were answered. Procedure note. After getting concentration in the procedure room in sitting position. Back prepped with chlorhexidine and draped in sterile fashion. After injecting 3 mL of 1% lidocaine subcutaneously, a 22-gauge spinal needle was introduced at L45 interspace. Positive CSF, negative blood, negative paresth esia. CSF color was clear. CSF pressure was not measured. CSF was collected in 4 supplied sterol containers in sequence. Spinal needle was taken out and bandage was applied. Disposition. Patient tolerated the procedure well. No complication. Advised patient to lay flat one-hour postprocedure. The rest of the day today try to lay flat as much as possible. Next 3 days drink lots of fluid especially caffeinated beverages, and avoid constipation cough and doing strenuous physical work. Discharged home in stable condition.
[2024-12-17 18:59] LABS: Glucose,CSF 61 mg/dL (40-70); Total Protein,CSF 40 mg/dL (12-60)
[2024-12-17 19:11] LABS: Influenza A Not Detected (Not Detectd); Influenza B Not Detected (Not Detectd); RSV Not Detected (Not Detectd)
[2024-12-17] MEDS ORDERED: hydrALAZINE HCL 20 MG/ML 1 ML VIAL IVP PRN (20:20)
[2024-12-17 20:23] LABS: Glucose,Whole Blood 107 mg/dL (70-110)
[2024-12-17 20:42] LABS: Appearance,CSF Clear; CSF Tube Number 4; Nucleated Cells, CSF 0 u/L (0-5); Red Blood Cell, CSF Crenated 2 %; Red Blood Cell, CSF Fresh 98 %; Red Blood Cell,CSF 41 u/L (0-10)
[2024-12-18 01:51] LABS: Glucose,Whole Blood 109 mg/dL (70-110)
[2024-12-18 07:17] LABS: Glucose,Whole Blood 101 mg/dL (70-110)
--- NOTE | 2024-12-18 10:46 | P.PN ---
Subjective Patient is seen in follow-up for end-stage renal disease. No problems with dialysis yesterday. Tolerated nearly 3 L ultrafiltration. Mentation better today. present at bedside. Vital signs are stable. General: No acute distress. HEENT: Head exam is unremarkable. LUNGS: No audible rhonchi or wheezes. HEART: Rate and Rhythm are regular. ABDOMEN: Nontender. EXTREMITITES: No edema. Objective - Vital Signs Vital signs: Vital Signs Temp 98.2 F 12/18/24 07:15 Pulse 75 12/18/24 07:15 Resp 16 12/18/24 07:15 BP 158/88 12/18/24 07:15 Pulse Ox 95 12/18/24 07:15 FiO2 Intake & Output 12/17/24 12/18/24 12/18/24 18:59 06:59 18:59 Intake Total 3830 240 Output Total 3550 0 Balance 280 0 240 Weight 78.5 kg 78.5 kg Intake: Oral 480 240 Hemodialysis 3350 Output: Urine 200 0 Hemodialysis 400 Hemodialysis Net Amount 2950 - Labs CBC & Chem 7: 12/17/24 04:26 12/17/24 04:26 Labs: Abnormal Lab Results - Last 24 Hours (Table) 12/17/24 Range/Units 17:07 CSF RBC 41 H (0-10) u/L Microbiology - Last 24 Hours (Table) 12/17/24 17:07 CSF Gram Stain - Preliminary Cerebral Spinal Fluid 12/16/24 12:07 Blood Culture - Preliminary Blood Assessment and Plan Plan: Assessment: 1. End-stage renal disease maintained on hemodialysis on Friday schedule. 2. Recent MRSA bacteremia status post removal of AV graft. Maintained on daptomycin. ID following. 3. Metabolic encephalopathy possibly from overdose of opioids. Status post lumbar puncture. Neurology and infectious disease following. 4. Anemia of chronic kidney disease. On [place]. 5. Diabetes mellitus. 6. Coronary artery disease with cardiac stents. 7. Hypertension with chronic kidney disease. Plan: Hemodialysis Friday. Phosphorus level 3.4 dated December 17, 2024. Follow-up cultures.
[2024-12-18 12:09] LABS: Glucose,Whole Blood 123 mg/dL (70-110)
--- NOTE | 2024-12-18 15:23 | P.PN ---
Subjective Progress Note Date: 12/18/24 Principal diagnosis: Reason for follow-up is a recent MRSA bacteremia Patient is a 44-year-old -Turkish male with multiple comorbidities including end-stage renal disease on dialysis with recent admission to the hospital for MRSA bacteremia second right upper extremity infected, which has been removed now presented to the hospital with confusion mental status changes. On today's evaluation that is 12/18/2024, patient did not have any fever and denies any chills, the patient is more awake and alert today patient is breathing comfortably on room air, patient with no chest pain or cough patient did not have any abdominal pain nausea vomiting or any loose stools. No new lab has been obtained today did have elevated CRP and procalcitonin LP was completed and negative Objective - Vital Signs Vital signs: Vital Signs Temp 99.2 F 12/18/24 11:33 Pulse 72 12/18/24 11:33 Resp 16 12/18/24 11:33 BP 162/93 12/18/24 11:33 Pulse Ox 94 L 12/18/24 11:33 FiO2 Intake & Output 12/17/24 12/18/24 12/18/24 18:59 06:59 18:59 Intake Total 3830 2508 Output Total 3550 0 Balance 280 0 2508 Weight 78.5 kg 78.5 kg Intake: Oral 480 2508 Hemodialysis 3350 Output: Urine 200 0 Hemodialysis 400 Hemodialysis Net Amount 2950 Other: # Voids 5 - Exam GENERAL DESCRIPTION: Middle-age male lying in bed in no distress RESPIRATORY SYSTEM: Unlabored breathing , decreased breath sounds at bases HEART: S1 S2 regular rate and rhythm , ABDOMEN: Soft , no tenderness EXTREMITIES: Left fourth toe nail is missing but no significant swelling redness or drainage was noticed - Labs CBC & Chem 7: 12/17/24 04:26 12/17/24 04:26 Labs: Abnormal Lab Results - Last 24 Hours (Table) 12/17/24 12/17/24 12/17/24 Range/Units 04:26 04:26 17:07 POC Glucose (mg/dL) (70-110) mg/dL C-Reactive Protein 7.10 H (0.00-0.80) mg/dL Procalcitonin 0.93 H (0.02-0.50) ng/mL CSF RBC 41 H (0-10) u/L 12/18/24 Range/Units 12:08 POC Glucose (mg/dL) 123 H (70-110) mg/dL C-Reactive Protein (0.00-0.80) mg/dL Procalcitonin (0.02-0.50) ng/mL CSF RBC (0-10) u/L Microbiology - Last 24 Hours (Table) 12/17/24 17:07 CSF Gram Stain - Preliminary Cerebral Spinal Fluid 12/16/24 12:07 Blood Culture - Preliminary Blood Assessment and Plan (1) Mental status alteration Current Visit: Yes Status: Acute Code(s): R41.82 - ALTERED MENTAL STATUS, UN SPECIFIED SNOMED Code(s): 322043249 (2) Bacteremia due to methicillin resistant Staphylococcus aureus Current Visit: No Status: Acute Code(s): R78.81 - BACTEREMIA; B95.62 - MET HICILLIN RESIS STAPH INFCT CAUSING DISEASES CLASSD ELSR SNOMED Code(s): 66220590423671131 Plan: 1patient with a recent history of MRSA infection secondary to right upper extremity infected graft which has been removed and the patient did clear his bacteremia as of 11/13/2024 and he was supposed to be at least on a 4-week course of IV daptomycin with the patient seem to have almost completed now presenting to the hospital with confusion mental status changes did not have any fever or any elevated white count with initial workup has been negative so far 2blood cultures are currently pending patient also have a LP CSF findings are normal 3patient seem to be back to his baseline we will continue with the daptomycin and monitor clinical course closely Dictation was produced using [employer] dictation software. please excuse any grammatical, word or spelling errors. Time with Patient: Less than 30
--- NOTE | 2024-12-18 15:56 | P.PN ---
Progress Note - Text Interval History: History of Present Illness This is a pleasant 44 years old -[place] male with past medical history of end-stage renal disease on hemodialysis. Presents because of altered mental status. Patient Poor historian and most of the information were obtained from the which is at bedside. Patient looks weak and lethargic. He knows it is 2024 but slow to respond could not tell where he is at and the name of the president. He went for hemodialysis at 6 PM however he was so weak and sleepy and hence was for him to wake him up between 4 and 10 PM after she came from work. Found to have also more weak and more lethargic and kind of loopy and floaty therefore stand up or walk he cannot. Because of this she decided to bring him to the hospital Patient denies any specific GI symptoms. He is not making urine No chest pain no dyspnea. No headache dizziness weakness or numbness. Is getting hemodialysis 4 times a week Also the was suspicion he took extra medication from his [id number] medication including Robaxin and [place]. He follow-up with vascular surgery and infectious disease for his right upper extremity wound. He is getting antibiotics with hemodialysis. He is not on oxygen at home. On admission his hypertensive with a blood pressure 184/111. He is afebrile. Labs including CBC, BMP and LFT were unremarkable except for mild anemia at 9 although his baseline is 6-7. Platelet count slightly low at 149 and creatinine 5.2. Troponin is elevated with a flat affect at 0.05 at 0.059. proBNP significantly elevated [id number] CT of the brain is negative for acute process. Chest x-ray showing acute pulmonary congestion suspicious for CHF. pH is elevated at 7.54 CO2 is normal at 35 increased pO2 at 60. 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 Echocardiogram from 08/2024 ejection fraction 35 to 40% with left ventricular hypertrophy and mild to moderate mitral regurgitation and moderate pulmonary hypertension and moderately dilated right ventricle 12/17 Patient today is more confused compared to yesterday. This was confirmed with the at bedside. Last night he ate dinner well and he was similar to the morning However today he barely respond or answer questions. He is not even following command. Although he is awake and calm. Patient has low-grade temperature of 99.7. Blood pressure stable. CBC stable, hemoglobin 8.1 which is at baseline. Patient evaluated by vascular surgery and staple removed from his right upper extremity wound. There was suspicion of infection in the left fourth toe others missing toenail. No other obvious source of infection. Patient was placed on IV daptomycin for now. Patient is going for hemodialysis today Neuro service was consulted for worsening altered mental status today. Repeat CT of the brain is requested 12/18--patient was seen and examined today. A&O x 3, patient reported that he presented because he accidentally took more baclofen tablets. Lumbar puncture was done yesterday, no infection Blood cultures negative so far. Infectious disease following, on daptomycin. Neurology recommended repeat CT head which was negative for acute process yesterday, neurology recommended MRI brain and EEG. Assessment and plan: Acute encephalopathy: Suspect toxic, patient reported overdosing on baclofen accidentally Recent history of MRSA infection, secondary to right upper extremity infected graft Fevers: Acute hypoxic respiratory failure: Resolved Acute on chronic diastolic CHF: ESRD on hemodialysis Hyperkalemia: Elevated troponin: Demand ischemia History of cardiac arrest X2 Diabetes mellitus: Coronary artery disease: Plan: History of recent MRSA bacteremia, finished antibiotics, had right upper extremity graft resection Currently on daptomycin, infectious disease consulted CT head negative for acute process Neurology consulted Status post lumbar punctureno infection MRI brain and EEG on Friday. Nephrology consulted for maintenance hemodialysis Epogen Aspirin, Coreg, Norvasc, Imdur, torsemide. DVT prophylaxis: SCD Monitor vital signs and labs Labs and medication were reviewed. Continue same treatment. Further recommendations as per clinical course of the patient PHYSICAL EXAMINATION: GENERAL: The patient is A&O x3, NAD HEENT: EOMI, Sclerae anicteric, Moist Mucous membranes Neck: Supple, Non tender, No JVD PULMONARY: Equal breath souds B/L, No wheezing, No crackles. CARDIOVASCULAR: S1, S2 present. No murmurs, rubs, or gallops. ABDOMEN: Soft, nontender, nondistended, normoactive bowel sounds. No guarding or rebound tenderness. MUSCULOSKELETAL: No edema, No cyanosis. No clubbing. Normal ROM. Intact peripheral pulses. NEUROLOGICAL: CN 2-12 grossly intact. No FND Skin: No Rash REVIEW OF SYSTEMS: CONSTITUTIONAL: No fever or chills. CARDIOVASCULAR: No chest pain, palpitations or syncope. PULMONARY: No shortness of breath, no cough, sore throat. GASTROINTESTINAL: No nausea, vomiting, diarrhea, abdominal pain. : No Dysuria, urgency, frequency. Extremities: No edema. NEUROLOGICAL: No headaches, no weakness, or numbness Dictation was produced using [employer] software. please excuse any grammatical, word or spelling errors.
[2024-12-18 17:11] LABS: Glucose,Whole Blood 147 mg/dL (70-110)
[2024-12-18 20:00] LABS: Glucose,Whole Blood 231 mg/dL (70-110)
[2024-12-19 07:20] LABS: Glucose,Whole Blood 125 mg/dL (70-110)
[2024-12-19 07:36] LABS: African American GFR (CKD) 10 (>60 ml/min/1.73 sqM); Anion Gap 9 mmol/L; Blood Urea Nitrogen 61 mg/dL (9-20); Calcium 8.3 mg/dL (8.4-10.2); Carbon Dioxide 30 mmol/L (22-30); Chloride 96 mmol/L (98-107); Glucose 120 mg/dL (74-99); Non-African American GFR(CKD) 8 (>60 ml/min/1.73 sqM); Potassium 4.8 mmol/L (3.5-5.1); Sodium 135 mmol/L (137-145)
[2024-12-19 07:38] LABS: Basophils % (A) 0 %; Eosinophils # (A) 0.1 k/uL (0-0.7); Eosinophils % (A) 2 %; HCT 26.2 % (39.0-53.0); HGB 8.2 gm/dL (13.0-17.5); Hypochromasia Moderate; Lymphocytes # (A) 1.1 k/uL (1.0-4.8); Lymphocytes % (A) 19 %; MCH 30.8 pg (25.0-35.0); MCHC 31.2 g/dL (31.0-37.0); MCV 98.8 fL (80.0-100.0); Macrocytosis Slight; Mean Platelet Volume 9.9; Monocytes # (A) 0.5 k/uL (0-1.0); Monocytes % (A) 8 %; Neutrophils # (A) 3.9 k/uL (1.3-7.7); Neutrophils % (A) 69 %; Platelet Count 143 k/uL (150-450); RBC 2.65 m/uL (4.30-5.90); RDW 15.8 % (11.5-15.5); WBC 5.6 k/uL (3.8-10.6)
--- NOTE | 2024-12-19 10:43 | P.PN ---
Subjective Progress Note Date: 12/18/24 Patient was seen for a follow-up. Patient's was also present by the bedside. Patient denies any headache, no dizziness. Patient's mentioned that for last 3 days he was not answering any questions, but today he is much better. Today is the first day that he knows name of his , having conversation, speaking in complete sentences, remembered the application processor by his name. The last few days he was just grunting or moaning. Objective - Vital Signs Vital signs: Vital Signs Temp 99.2 F 12/18/24 11:33 Pulse 72 12/18/24 11:33 Resp 16 12/18/24 11:33 BP 162/93 12/18/24 11:33 Pulse Ox 94 L 12/18/24 11:33 FiO2 Intake & Output 12/17/24 12/18/24 12/18/24 18:59 06:59 18:59 Intake Total 3830 2508 Output Total 3550 0 Balance 280 0 2508 Weight 78.5 kg 78.5 kg Intake: Oral 480 2508 Hemodialysis 3350 Output: Urine 200 0 Hemodialysis 400 Hemodialysis Net Amount 2950 Other: # Voids 5 - Exam Patient knows his name, and name of his Layla. He knows his date of 1980, but could not tell the current month or the year or the city or state he lives in. He has a very slow mentation. He is blind in the left eye. Patient is moving all 4 extremities equally. - Labs CBC & Chem 7: 12/19/24 07:11 12/19/24 07:11 Labs: Abnormal Lab Results - Last 24 Hours (Table) 12/17/24 12/17/24 12/17/24 Range/Units 04:26 04:26 17:07 POC Glucose (mg/dL) (70-110) mg/dL C-Reactive Protein 7.10 H (0.00-0.80) mg/dL Procalcitonin 0.93 H (0.02-0.50) ng/mL CSF RBC 41 H (0-10) u/L 12/18/24 Range/Units 12:08 POC Glucose (mg/dL) 123 H (70-110) mg/dL C-Reactive Protein (0.00-0.80) mg/dL Procalcitonin (0.02-0.50) ng/mL CSF RBC (0-10) u/L Microbiology - Last 24 Hours (Table) 12/17/24 17:07 CSF Gram Stain - Preliminary Cerebral Spinal Fluid 12/16/24 12:07 Blood Culture - Preliminary Blood Assessment and Plan Assessment: This is a 44-year-old gentleman who presents emergency department because of altered mental status. According to the after dialysis this once daily in the late afternoon he was confused not acting himself. Seems last month he had extensive prolonged hospital stay and he had abscess in the right upper extremity MRSA as well as had RSV and was hospitalized for 33 days according to the . Altered mental status: Probable due to septic/metabolic encephalopathy. CT head is negative for acute process. Meningitis/encephalitis ruled out. History of diabetes mellitus History of diabetic retinopathy over the left eye History of end-stage renal disease on dialysis History of coronary artery disease History of myocardial infarction Hyperlipidemia History of ischemic cardiomyopathy Borderline B12/folate. Plan: Patient's mentation has much improved. He has started speaking in sentences, which he was not doing in the last few days. We will continue to follow clinically. Repeat CT of the head 12/17/2024 showed no acute intracranial process. I personally reviewed CT head, agree with the findings. Clinical correlation for right mastoiditis. Await routine EEG TSH 0.965, B12 398, folate 5.0. We will start B12 and folate replacement, because of borderline levels. Is on aspirin 81 mg. Lumbar puncture was performed yesterday, which revealed WBC 0, RBC 41, glucose 61, protein 40, all normal. Comprehensive viral panel pending. Meningitis/encephalitis ruled out. ID is on board. Patient currently on daptomycin Defer the rest of the medical management to primary other specialist.
--- NOTE | 2024-12-19 10:47 | P.PN ---
Subjective Patient is seen in follow-up for end-stage renal disease. Mentation better today. Awake and alert. No active complaints. Vital signs are stable. General: No acute distress. HEENT: Head exam is unremarkable. LUNGS: No audible rhonchi or wheezes. HEART: Rate and Rhythm are regular. ABDOMEN: Nontender. EXTREMITITES: No edema. Objective - Vital Signs Vital signs: Vital Signs Temp 98.3 F 12/19/24 07:34 Pulse 69 12/19/24 07:34 Resp 16 12/19/24 07:34 BP 142/73 12/19/24 07:34 Pulse Ox 100 12/19/24 07:34 FiO2 Intake & Output 12/18/24 12/19/24 12/19/24 18:59 06:59 18:59 Intake Total 2508 540 Balance 2508 540 Weight 78.5 kg 80.5 kg Intake: Oral 2508 540 Other: # Voids 5 1 # Bowel Movements 1 - Labs CBC & Chem 7: 12/19/24 07:11 12/19/24 07:11 Labs: Abnormal Lab Results - Last 24 Hours (Table) 12/18/24 12/18/24 12/18/24 Range/Units 12:08 17:10 19:59 RBC (4.30-5.90) m/uL Hgb (13.0-17.5) gm/dL Hct (39.0-53.0) % RDW (11.5-15.5) % Plt Count (150-450) k/uL Sodium (137-145) mmol/L Chloride (98-107) mmol/L BUN (9-20) mg/dL Creatinine (0.66-1.25) mg/dL Glucose (74-99) mg/dL POC Glucose (mg/dL) 123 H 147 H 231 H (70-110) mg/dL Calcium (8.4-10.2) mg/dL 12/19/24 12/19/24 12/19/24 Range/Units 06:49 07:11 07:11 RBC 2.65 L (4.30-5.90) m/uL Hgb 8.2 L (13.0-17.5) gm/dL Hct 26.2 L (39.0-53.0) % RDW 15.8 H (11.5-15.5) % Plt Count 143 L (150-450) k/uL Sodium 135 L (137-145) mmol/L Chloride 96 L (98-107) mmol/L BUN 61 H (9-20) mg/dL Creatinine 7.22 H* (0.66-1.25) mg/dL Glucose 120 H (74-99) mg/dL POC Glucose (mg/dL) 125 H (70-110) mg/dL Calcium 8.3 L (8.4-10.2) mg/dL Microbiology - Last 24 Hours (Table) 12/17/24 17:07 CSF Gram Stain - Preliminary Cerebral Spinal Fluid CSF Culture - Preliminary 12/16/24 12:07 Blood Culture - Preliminary Blood Assessment and Plan Plan: Assessment: 1. End-stage renal disease maintained on hemodialysis on Friday schedule. 2. Recent MRSA bacteremia status post removal of AV graft. Maintained on daptomycin. ID following. 3. Metabolic encephalopathy possibly from overdose of opioids. Status post lumbar puncture. Neurology and infectious disease following. 4. Anemia of chronic kidney disease. On [place]. 5. Diabetes mellitus. 6. Coronary artery disease with cardiac stents. 7. Hypertension with chronic kidney disease. Stable. Plan: Hemodialysis Friday. Phosphorus level 3.4 dated December 17, 2024. Follow-up cultures.
[2024-12-19 12:07] LABS: Glucose,Whole Blood 175 mg/dL (70-110)
[2024-12-19] MEDS: CYANOCOBALAMIN 500 MCG TAB PO SCH (12:38)
[2024-12-19] MEDS: FOLIC ACID 1 MG TAB PO SCH (12:38)
--- NOTE | 2024-12-19 13:19 | P.PN ---
Subjective Progress Note Date: 12/19/24 History of Present Illness This is a pleasant 44 years old -[place] male with past medical history of end-stage renal disease on hemodialysis. Presents because of altered mental status. Patient Poor historian and most of the information were obtained from the which is at bedside. Patient looks weak and lethargic. He knows it is 2024 but slow to respond could not tell where he is at and the name of the president. He went for hemodialysis at 6 PM however he was so weak and sleepy and hence was for him to wake him up between 4 and 10 PM after she came from work. Found to have also more weak and more lethargic and kind of loopy and floaty therefore stand up or walk he cannot. Because of this she decided to bring him to the hospital Patient denies any specific GI symptoms. He is not making urine No chest pain no dyspnea. No headache dizziness weakness or numbness. Is getting hemodialysis 4 times a week Also the was suspicion he took extra medication from his [id number] med ication including Robaxin and [place]. He follow-up with vascular surgery and infectious disease for his right upper extremity wound. He is getting antibiotics with hemodialysis. He is not on oxygen at home. On admission his hypertensive with a blood pressure 184/111. He is afebrile. Labs including CBC, BMP and LFT were unremarkable except for mild anemia at 9 although his baseline is 6-7. Platelet count slightly low at 149 and creatinine 5.2. Troponin is elevated with a flat affect at 0.05 at 0.059. proBNP significantly elevated [id number] CT of the brain is negative for acute process. Chest x-ray showing acute pulmonary congestion suspicious for CHF. pH is elevated at 7.54 CO2 is normal at 35 increased pO2 at 60. 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 Echocardiogram from 08/2024 ejection fraction 35 to 40% with left ventricular hypertrophy and mild to moderate mitral regurgitation and moderate pulmonary hypertension and moderately dilated right ventricle 12/17 Patient today is more confused compared to yesterday. This was confirmed with the at bedside. Last night he ate dinner well and he was similar to the morning However today he barely respond or answer questions. He is not even following command. Although he is awake and calm. Patient has low-grade temperature of 99.7. Blood pressure stable. CBC stable, hemoglobin 8.1 which is at baseline. Patient evaluated by vascular surgery and staple removed from his right upper extremity wound. There was suspicion of infection in the left fourth toe others missing toenail. No other obvious source of infection. Patient was placed on IV daptomycin for now. Patient is going for hemodialysis today Neuro service was consulted for worsening altered mental status today. Repeat CT of the brain is requested 12/18--patient was seen and examined today. A&O x 3, patient reported that he presented because he accidentally took more baclofen tablets. Lumbar puncture was done yesterday, no infection Blood cultures negative so far. Infectious disease following, on daptomycin. Neurology recommended repeat CT head which was negative for acute process yesterday, neurology recommended MRI brain and EEG. 12/19--- patient was seen and examined today. Patient more awake and alert today. Afebrile, heart rate 69, respiratory 16, blood pressure 142/73, saturating 100% on room air. WBC 5.6, hemoglobin 8.2, platelet 143. Sodium 135 potassium 4.8 chloride 96 CO2 30 BUN 61 creatinine 7.22 calcium 8.3. Blood culture remain negative so far. Currently on daptomycin, awaiting EEG and MRI. Infectious disease neurology and nephrology on board. Assessment and plan: Acute encephalopathy: Suspect toxic, patient reported overdosing on baclofen accidentally Recent history of MRSA infection, secondary to right upper extremity infected graft Fevers: Acute hypoxic respiratory failure: Resolved Acute on chronic diastolic CHF: ESRD on hemodialysis Hyperkalemia: Elevated troponin: Demand ischemia History of cardiac arrest X2 Diabetes mellitus: Coronary artery disease: Stents Plan: History of recent MRSA bacteremia, finished antibiotics, had right upper extremity graft resection Currently on daptomycin, infectious disease consulted CT head negative for acute process Neurology consulted Status post lumbar punctureno infection MRI brain and EEG on Friday. Nephrology consulted for maintenance hemodialysis Epogen Aspirin, Coreg, Norvasc, Imdur, torsemide. DVT prophylaxis: Subcutaneous heparin Monitor vital signs and labs Labs and medication were reviewed. Continue same treatment. Further recommendations as per clinical course of the patient PHYSICAL EXAMINATION: GENERAL: The patient is A&O x3, NAD HEENT: EOMI, Sclerae anicteric, Moist Mucous membranes Neck: Supple, Non tender, No JVD PULMONARY: Equal breath souds B/L, No wheezing, No crackles. CARDIOVASCULAR: S1, S2 present. No murmurs, rubs, or gallops. ABDOMEN: Soft, nontender, nondistended, normoactive bowel sounds. No guarding or rebound tenderness. MUSCULOSKELETAL: No edema, No cyanosis. No clubbing. Normal ROM. Intact peripheral pulses. NEUROLOGICAL: CN 2-12 grossly intact. No FND Skin: No Rash REVIEW OF SYSTEMS: CONSTITUTIONAL: No fever or chills. CARDIOVASCULAR: No chest pain, palpitations or syncope. PULMONARY: No shortness of breath, no cough, sore throat. GASTROINTESTINAL: No nausea, vomiting, diarrhea, abdominal pain. : No Dysuria, urgency, frequency. Extremities: No edema. NEUROLOGICAL: No headaches, no weakness, or numbness Dictation was produced using [employer] dictation software. please excuse any grammatical, word or spelling errors. Objective - Vital Signs Vital signs: Vital Signs Temp 98.3 F 12/19/24 07:34 Pulse 69 12/19/24 07:34 Resp 16 12/19/24 07:34 BP 142/73 12/19/24 07:34 Pulse Ox 100 12/19/24 07:34 FiO2 Intake & Output 12/18/24 12/19/24 12/19/24 18:59 06:59 18:59 Intake Total 2508 540 Balance 2508 540 Weight 78.5 kg 80.5 kg Intake: Oral 2508 540 Other: # Voids 5 1 # Bowel Movements 1 - Labs CBC & Chem 7: 12/19/24 07:11 12/19/24 07:11 Labs: Abnormal Lab Results - Last 24 Hours (Table) 12/18/24 12/18/24 12/19/24 Range/Units 17:10 19:59 06:49 RBC (4.30-5.90) m/uL Hgb (13.0-17.5) gm/dL Hct (39.0-53.0) % RDW (11.5-15.5) % Plt Count (150-450) k/uL Sodium (137-145) mmol/L Chloride (98-107) mmol/L BUN (9-20) mg/dL Creatinine (0.66-1.25) mg/dL Glucose (74-99) mg/dL POC Glucose (mg/dL) 147 H 231 H 125 H (70-110) mg/dL Calcium (8.4-10.2) mg/dL 12/19/24 12/19/24 12/19/24 Range/Units 07:11 07:11 12:02 RBC 2.65 L (4.30-5.90) m/uL Hgb 8.2 L (13.0-17.5) gm/dL Hct 26.2 L (39.0-53.0) % RDW 15.8 H (11.5-15.5) % Plt Count 143 L (150-450) k/uL Sodium 135 L (137-145) mmol/L Chloride 96 L (98-107) mmol/L BUN 61 H (9-20) mg/dL Creatinine 7.22 H* (0.66-1.25) mg/dL Glucose 120 H (74-99) mg/dL POC Glucose (mg/dL) 175 H (70-110) mg/dL Calcium 8.3 L (8.4-10.2) mg/dL Microbiology - Last 24 Hours (Table) 12/17/24 17:07 CSF Gram Stain - Preliminary Cerebral Spinal Fluid CSF Culture - Preliminary 12/16/24 12:07 Blood Culture - Preliminary Blood
[2024-12-19 17:25] LABS: Glucose,Whole Blood 170 mg/dL (70-110)
[2024-12-19 20:10] LABS: Glucose,Whole Blood 163 mg/dL (70-110)
[2024-12-19] MEDS: HEPARIN SODIUM,PORCINE 5,000 UNIT/ML 1 ML VIAL SQ SCH (20:15)
--- NOTE | 2024-12-19 21:43 | P.PN ---
Subjective Progress Note Date: 12/19/24 Principal diagnosis: Reason for follow-up is a recent MRSA bacteremia Patient is a 44-year-old -[place] male with multiple comorbidities including end-stage renal disease on dialysis with recent admission to the hospital for MRSA bacteremia second right upper extremity infected, which has been removed now presented to the hospital with confusion mental status changes. On today's evaluation that is 12/19/2024, Patient is afebrile patient is currently on room air and denies having any shortness of breath, the patient denies any chest pain or cough, the patient denies any nausea vomiting did not have any abdominal pain and no diarrhea. Patient today white count 5.6, creatinine 7.22 culture repeat has been negative Objective - Vital Signs Vital signs: Vital Signs Temp 98.3 F 12/19/24 07:34 Pulse 69 12/19/24 07:34 Resp 16 12/19/24 07:34 BP 142/73 12/19/24 07:34 Pulse Ox 100 12/19/24 07:34 FiO2 Intake & Output 12/18/24 12/19/24 12/19/24 18:59 06:59 18:59 Intake Total 2508 540 Balance 2508 540 Weight 78.5 kg 80.5 kg Intake: Oral 2508 540 Other: # Voids 5 1 # Bowel Movements 1 - Exam GENERAL DESCRIPTION: Middle-age male lying in bed in no distress RESPIRATORY SYSTEM: Unlabored breathing , decreased breath sounds at bases HEART: S1 S2 regular rate and rhythm , ABDOMEN: Soft , no tenderness EXTREMITIES: Left fourth toe nail is missing but no significant swelling redness or drainage was noticed - Labs CBC & Chem 7: 12/19/24 07:11 12/19/24 07:11 Labs: Abnormal Lab Results - Last 24 Hours (Table) 12/18/24 12/18/24 12/19/24 Range/Units 17:10 19:59 06:49 RBC (4.30-5.90) m/uL Hgb (13.0-17.5) gm/dL Hct (39.0-53.0) % RDW (11.5-15.5) % Plt Count (150-450) k/uL Sodium (137-145) mmol/L Chloride (98-107) mmol/L BUN (9-20) mg/dL Creatinine (0.66-1.25) mg/dL Glucose (74-99) mg/dL POC Glucose (mg/dL) 147 H 231 H 125 H (70-110) mg/dL Calcium (8.4-10.2) mg/dL 12/19/24 12/19/24 12/19/24 Range/Units 07:11 07:11 12:02 RBC 2.65 L (4.30-5.90) m/uL Hgb 8.2 L (13.0-17.5) gm/dL Hct 26.2 L (39.0-53.0) % RDW 15.8 H (11.5-15.5) % Plt Count 143 L (150-450) k/uL Sodium 135 L (137-145) mmol/L Chloride 96 L (98-107) mmol/L BUN 61 H (9-20) mg/dL Creatinine 7.22 H* (0.66-1.25) mg/dL Glucose 120 H (74-99) mg/dL POC Glucose (mg/dL) 175 H (70-110) mg/dL Calcium 8.3 L (8.4-10.2) mg/dL Microbiology - Last 24 Hours (Table) 12/17/24 17:07 CSF Gram Stain - Preliminary Cerebral Spinal Fluid CSF Culture - Preliminary 12/16/24 12:07 Blood Culture - Preliminary Blood Assessment and Plan (1) Mental status alteration Current Visit: Yes Status: Acute Code(s): R41.82 - ALTERED MENTAL STATUS, UNSPECIFIED SNOMED Code(s): 156793689 (2) Bacteremia due to methicillin resistant Staphylococcus aureus Current Visit: No Status: Acute Code(s): R78.81 - BACTEREMIA; B95.62 - METHICILLIN RESIS STAPH INFCT CAUSING DISEASES CL[facility]SD [facility] SNOMED Code(s): 95248334934377911 Plan: 1patient with a recent history of MRSA infection secondary to right upper extremity infected graft which has been removed and the patient did clear his bacteremia as of 11/13/2024 and he was supposed to be at least on a 4-week course of IV daptomycin with the patient seem to have almost completed now presenting to the hospital with confusion mental status changes did not have any fever or any elevated white count with initial workup has been negative so far 2blood cultures are so far negative patient also have a LP CSF findings are normal 3patient is back to his baseline as far as mentation neurology is following the patient continue with the daptomycin and monitor clinical course closely Dictation was produced using [employer] dictation software. please excuse any grammatical, word or spelling errors. Time with Patient: Less than 30
[2024-12-20 07:16] LABS: Glucose,Whole Blood 217 mg/dL (70-110)
[2024-12-20 08:22] LABS: Basophils # (A) 0.01 X 10*3/uL (0.00-0.10); Basophils % (A) 0.2 %; Eosinophils % (A) 1.6 %; HCT 24.4 % (39.6-50.0); HGB 7.7 g/dL (13.0-17.0); Lymphocytes # (A) 0.67 X 10*3/uL (0.90-5.00); Lymphocytes % (A) 10.5 %; MCH 29.8 pg (27.0-32.0); MCHC 31.6 g/dL (32.0-37.0); MCV 94.6 FL (80.0-97.0); Monocytes # (A) 0.54 X 10*3/uL (0.20-1.00); Monocytes % (A) 8.5 %; NRBC Per 100 WBC 0 X 10*3/uL (0.00-0.01); Neutrophils # (A) 5.02 X 10*3/uL (1.80-7.70); Neutrophils % (A) 78.6 %; Platelet Count 133 X 10*3/uL (140-440); RBC 2.58 X 10*6/uL (4.40-5.60); RDW 15.8 % (11.5-14.5); WBC 6.38 X 10*3/uL (4.50-10.00)
[2024-12-20 08:32] LABS: BUN/Creat Ratio 6.98 Ratio (12.00-20.00); Blood Urea Nitrogen 60.7 mg/dL (9.0-27.0); Calcium 8.7 mg/dL (8.7-10.3); Carbon Dioxide 27.1 mmol/L (21.6-31.8); Chloride 96 mmol/L (96-109); Glucose 191 mg/dL (70-110); Potassium 5.2 mmol/L (3.5-5.5); Sodium 137 mmol/L (135-145)
--- NOTE | 2024-12-20 10:45 | MR ---
EXAMINATION TYPE: MR brain wo con DATE OF EXAM: 12/20/2024 10:17 AM COMPARISON: None. CLINICAL INDICATION: Male, 44 years old with history of altered mental status unknown source, TECHNIQUE: Multi planar multi sequence imaging of the brain. FINDINGS: The ventricles, basal cisterns and sulci overlying the cerebral convexities are mildly enlarged. There is evidence of mild periventricular white matter ischemic demyelination. Remote deep white matter insults are also noted. No acute edema is seen on diffusion weighted imaging. There is no evidence for midline shift or mass effect. Acute intracranial hemorrhage or extra-axial collection is not evident. The paranasal sinuses are well-aerated. Changes of chronic right-sided mastoiditis. Left-sided mastoi d air cells are unremarkable. Probable left globe prosthesis. Correlate clinically. IMPRESSION: Age-related atrophic and chronic small vessel ischemic change. No acute intracranial process at this time. [facility], , 12/20/2024 10:43 AM
[2024-12-20 12:29] LABS: Glucose,Whole Blood 128 mg/dL (70-110)
--- NOTE | 2024-12-20 13:38 | P.PN ---
Subjective History of Present Illness This is a pleasant 44 years old -[place] male with past medical history of end-stage renal disease on hemodialysis. Presents because of altered mental status. Patient Poor historian and most of the information were obtained from the which is at bedside. Patient looks weak and lethargic. He knows it is 2024 but slow to respond could not tell where he is at and the name of the president. He went for hemodialysis at 6 PM however he was so weak and sleepy and hence was for him to wake him up between 4 and 10 PM after she came from work. Found to have also more weak and more lethargic and kind of loopy and floaty therefore stand up or walk he cannot. Because of this she decided to bring him to the [facility] Patient denies any specific GI symptoms. He is not making urine No chest pain no dyspnea. No headache dizziness weakness or numbness. Is getting hemodialysis 4 times a week Also the was suspicion he took extra medication from his [id number] medication including Robaxin and [place]. He follow-up with vascular surgery and infectious disease for his right upper extremity wound. He is getting antibiotics with hemodialysis. He is not on oxygen at home. On admission his hypertensive with a blood pressure 184/111. He is afebrile. Labs including CBC, BMP and LFT were unremarkable except for mild anemia at 9 although his baseline is 6-7. Platelet count slightly low at 149 and creatinine 5.2. Troponin is elevated with a flat affect at 0.05 at 0.059. proBNP significantly elevated [id number] CT of the brain is negative for acute process. Chest x-ray showing acute pulmonary congestion suspicious for CHF. pH is elevated at 7.54 CO2 is normal at 35 increased pO2 at 60. 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 Echocardiogram from 08/2024 ejection fraction 35 to 40% with left ventricular hypertrophy and mild to moderate mitral regurgitation and moderate pulmonary hypertension and moderately dilated right ventricle 12/17 Patient today is more confused compared to yesterday. This was confirmed with the at bedside. Last night he ate dinner well and he was similar to the mo rning However today he barely respond or answer questions. He is not even following command. Although he is awake and calm. Patient has low-grade temperature of 99.7. Blood pressure stable. CBC stable, hemoglobin 8.1 which is at baseline. Patient evaluated by vascular surgery and staple removed from his right upper extremity wound. There was suspicion of infection in the left fourth toe others missing toenail. No other obvious source of infection. Patient was placed on IV daptomycin for now. Patient is going for hemodialysis today Neuro service was consulted for worsening altered mental status today. Repeat CT of the brain is requested 12/18--patient was seen and examined today. A&O x 3, patient reported that he presented because he accidentally took more baclofen tablets. Lumbar puncture was done yesterday, no infection Blood cultures negative so far. Infectious disease following, on daptomycin. Neurology recommended repeat CT head which was negative for acute process yester day, neurology recommended MRI brain and EEG. 12/19--- patient was seen and examined today. Patient more awake and alert today. Afebrile, heart rate 69, respiratory 16, blood pressure 142/73, satura ting 100% on room air. WBC 5.6, hemoglobin 8.2, platelet 143. Sodium 135 potassium 4.8 chloride 96 CO2 30 BUN 61 creatinine 7.22 calcium 8.3. Blood culture remain negative so far. Currently on daptomycin, awaiting EEG and MRI. Infectious disease neurology and nephrology on board. 12/20--patient was seen and examined today. No issues overnight, remained afebrile, more awake and alert. WBC 6.3, hemoglobin 7.7, platelet 133. BUN 60, creatinine 8.7. Potassium 5.2. MRI brain done negative for acute process. EEG results pending. Currently on daptomycin. Infectious disease and neurology following. Assessment and plan: Acute encephalopathy: Suspect toxic, patient reported overdosing on baclofen accidentally Recent history of MRSA infection, secondary to right upper extremity infected graft Fevers: Acute hypoxic respiratory failure: Resolved Acute on chronic diastolic CHF: ESRD on hemodialysis Hyperkalemia: Elevated troponin: Demand ischemia History of cardiac arrest X2 Diabetes mellitus: Coronary artery disease: Stents Plan: History of recent MRSA bacteremia, finished antibiotics, had right upper extremity graft resection Currently on daptomycin, infectious disease consulted CT head negative for acute process Neurology consulted Status post lumbar punctureno infection MRI brain negative for acute process EEG doneresults pending Nephrology consulted for maintenance hemodialysis Epogen Aspirin, Coreg, Norvasc, Imdur, torsemide. DVT prophylaxis: Subcutaneous heparin Monitor vital signs and labs Labs and medication were reviewed. Continue same treatment. Further recommendations as per clinical course of the patient PHYSICAL EXAMINATION: GENERAL: The patient is A&O x3, NAD HEENT: EOMI, Sclerae anicteric, Moist Mucous membranes Neck: Supple, Non tender, No JVD PULMONARY: Equal breath souds B/L, No wheezing, No crackles. CARDIOVASCULAR: S1, S2 present. No murmurs, rubs, or gallops. ABDOMEN: Soft, nontender, nondistended, normoactive bowel sounds. No guarding or rebound tenderness. MUSCULOSKELETAL: No edema, No cyanosis. No clubbing. Normal ROM. Intact peripheral pulses. NEUROLOGICAL: CN 2-12 grossly intact. No FND Skin: No Rash REVIEW OF SYSTEMS: CONSTITUTIONAL: No fever or chills. CARDIOVASCULAR: No chest pain, palpitations or syncope. PULMONARY: No shortness of breath, no cough, sore throat. GASTROINTESTINAL: No nausea, vomiting, diarrhea, abdominal pain. : No Dysuria, urgency, frequency. Extremities: No edema. NEUROLOGICAL: No headaches, no weakness, or numbness Dictation was produced using [employer] dictation software. please excuse any grammatical, word or spelling errors. Objective - Vital Signs Vital signs: Vital Signs Temp 97.8 F 12/20/24 12:13 Pulse 68 12/20/24 12:13 Resp 16 12/20/24 12:13 BP 143/81 12/20/24 12:13 Pulse Ox 98 12/20/24 12:13 FiO2 Intake & Output 12/19/24 12/20/24 12/20/24 18:59 06:59 18:59 Intake Total 1198 Balance 1198 Weight 84 kg Intake: Oral 1198 Other: Voiding Method Toilet Toilet # Voids 3 - Labs CBC & Chem 7: 12/20/24 05:39 12/20/24 05:39 Labs: Abnormal Lab Results - Last 24 Hours (Table) 12/19/24 12/19/24 12/20/24 Range/Units 17:13 20:08 05:39 RBC 2.58 L (4.40-5.60) X 10*6/uL Hgb 7.7 L (13.0-17.0) g/dL Hct 24.4 L (39.6-50.0) % MCHC 31.6 L (32.0-37.0) g/dL RDW 15.8 H (11.5-14.5) % Plt Count 133 L (140-440) X 10*3/uL MPV 13.0 H (9.5-12.2) FL Lymphocytes # 0.67 L (0.90-5.00) X 10*3/uL Anion Gap (4.00-12.00) mmol/L BUN (9.0-27.0) mg/dL Creatinine (0.6-1.5) mg/dL Est GFR (CKD-EPI) (>=60) BUN/Creatinine Ratio (12.00-20.00) Ratio Glucose (70-110) mg/dL POC Glucose (mg/dL) 170 H 163 H (70-110) mg/dL 12/20/24 12/20/24 12/20/24 Range/Units 05:39 07:15 12:28 RBC (4.40-5.60) X 10*6/uL Hgb (13.0-17.0) g/dL Hct (39.6-50.0) % MCHC (32.0-37.0) g/dL RDW (11.5-14.5) % Plt Count (140-440) X 10*3/uL MPV (9.5-12.2) FL Lymphocytes # (0.90-5.00) X 10*3/uL Anion Gap 13.90 H (4.00-12.00) mmol/L BUN 60.7 H (9.0-27.0) mg/dL Creatinine 8.7 H (0.6-1.5) mg/dL Est GFR (CKD-EPI) 7 L (>=60) BUN/Creatinine Ratio 6.98 L (12.00-20.00) Ratio Glucose 191 H (70-110) mg/dL POC Glucose (mg/dL) 217 H 128 H (70-110) mg/dL Microbiology - Last 24 Hours (Table) 12/17/24 17:07 CSF Gram Stain - Preliminary Cerebral Spinal Fluid CSF Culture - Preliminary 12/16/24 12:07 Blood Culture - Preliminary Blood
--- NOTE | 2024-12-20 16:01 | P.PN ---
Subjective Progress Note Date: 12/20/24 Principal diagnosis: Reason for follow-up is a recent MRSA bacteremia Patient is a 44-year-old -[place] male with multiple comorbidities including end-stage renal disease on dialysis with recent admission to the hospital for MRSA bacteremia second right upper extremity infected, which has been removed now presented to the hospital with confusion mental status changes. On today's evaluation that is 12/20/2024, patient has been afebrile, patient is breathing comfortably and is currently on room air, patient denies having any significant cough no chest pain, patient denies nausea vomiting or diarrhea and no abdominal pain patient white count 6.38, creatinine is 8.7 blood culture has been negative CSF culture negative Objective - Vital Signs Vital signs: Vital Signs Temp 97.8 F 12/20/24 12:13 Pulse 68 12/20/24 12:13 Resp 16 12/20/24 12:13 BP 143/81 12/20/24 12:13 Pulse Ox 98 12/20/24 12:13 FiO2 Intake & Output 12/19/24 12/20/24 12/20/24 18:59 06:59 18:59 Intake Total 1198 Balance 1198 Weight 84 kg Intake: Oral 1198 Other: Voiding Method Toilet Toilet # Voids 3 - Exam GENERAL DESCRIPTION: Middle-age male lying in bed in no distress RESPIRATORY SYSTEM: Unlabored breathing , decreased breath sounds at bases HEART: S1 S2 regular rate and rhythm , ABDOMEN: Soft , no tenderness EXTREMITIES: Left fourth toe nail is missing but no significant swelling redness or drainage was noticed - Labs CBC & Chem 7: 12/20/24 05:39 12/20/24 05:39 Labs: Abnormal Lab Results - Last 24 Hours (Table) 12/19/24 12/19/24 12/20/24 Range/Units 17:13 20:08 05:39 RBC 2.58 L (4.40-5.60) X 10*6/uL Hgb 7.7 L (13.0-17.0) g/dL Hct 24.4 L (39.6-50.0) % MCHC 31.6 L (32.0-37.0) g/dL RDW 15.8 H (11.5-14.5) % Plt Count 133 L (140-440) X 10*3/uL MPV 13.0 H (9.5-12.2) FL Lymphocytes # 0.67 L (0.90-5.00) X 10*3/uL Anion Gap (4.00-12.00) mmol/L BUN (9.0-27.0) mg/dL Creatinine (0.6-1.5) mg/dL Est GFR (CKD-EPI) (>=60) BUN/Creatinine Ratio (12.00-20.00) Ratio Glucose (70-110) mg/dL POC Glucose (mg/dL) 170 H 163 H (70-110) mg/dL 12/20/24 12/20/24 12/20/24 Range/Units 05:39 07:15 12:28 RBC (4.40-5.60) X 10*6/uL Hgb (13.0-17.0) g/dL Hct (39.6-50.0) % MCHC (32.0-37.0) g/dL RDW (11.5-14.5) % Plt Count (140-440) X 10*3/uL MPV (9.5-12.2) FL Lymphocytes # (0.90-5.00) X 10*3/uL Anion Gap 13.90 H (4.00-12.00) mmol/L BUN 60.7 H (9.0-27.0) mg/dL Creatinine 8.7 H (0.6-1.5) mg/dL Est GFR (CKD-EPI) 7 L (>=60) BUN/Creatinine Ratio 6.98 L (12.00-20.00) Ratio Glucose 191 H (70-110) mg/dL POC Glucose (mg/dL) 217 H 128 H (70-110) mg/dL Microbiology - Last 24 Hours (Table) 12/17/24 17:07 CSF Gram Stain - Preliminary Cerebral Spinal Fluid CSF Culture - Preliminary 12/16/24 12:07 Blood Culture - Preliminary Blood Assessment and Plan (1) Mental status alteration Current Visit: Yes Status: Acute Code(s): R41.82 - ALTERED MENTAL STATUS, UNSPECIFIED SNOMED Code(s): 174179114 (2) Bacteremia due to methicillin resistant Staphylococcus aureus Current Visit: No Status: Acute Code(s): R78.81 - BACTEREMIA; B95.62 - METHICILLIN RESIS STAPH INFCT CAUSING DISEASES CLASSD [facility] SNOMED Code(s): 97691477467914964 Plan: 1patient with a recent history of MRSA infection secondary to right upper extremity infected graft which has been removed and the patient did clear his bacteremia as of 11/13/2024 and he was supposed to be at least on a 4-week course of IV daptomycin with the patient seem to have almost completed now presenting to the hospital with confusion mental status changes did not have any fever or any elevated white count with initial workup has been negative so far 2blood cultures are so far negative patient also have a LP CSF findings are normal 3patient is back to his baseline as far as mentation currently on daptomycin however the patient has received adequate antibiotic for underlying infection and can be safely discontinued on discharge Dictation was produced using [employer] dictation software. please excuse any grammatical, word or spelling errors. Time with Patient: Less than 30
[2024-12-20 17:15] LABS: Glucose,Whole Blood 147 mg/dL (70-110)
[2024-12-20 20:05] LABS: Glucose,Whole Blood 137 mg/dL (70-110)
[2024-12-20 20:40] VITALS: RESP 16
--- NOTE | 2024-12-21 00:21 | EEG ---
ELECTROENCEPHALOGRAM REPORT PREAMBLE: This is a 44-year-old male with altered mental status, rule out seizure. EEG FINDINGS: This is a 21-channel digital EEG recorded with video component, utilizing 10/20 international system with referential and bipolar montage. Background consists of well- developed, moderately well-regulated, mixed frequencies of 8 hertz of posterior dominant alpha, intermixed with some mixed theta and some delta slowing in bihemispheric region. Background does not seemed to be clearly reactive to eye opening or closing. Photic driving response was not seen. Different stages of sleep were not seen. No focal or generalized epileptiform activity was seen. IMPRESSION: This is an abnormal EEG due to intermittent background slowing, suggestive of mild-to- moderate encephalopathy. No focal, lateralized, or epileptiform activity was seen. MMODL / IJN: [id number] /
[2024-12-21 07:06] LABS: Glucose,Whole Blood 106 mg/dL (70-110)
--- NOTE | 2024-12-21 10:58 | P.PN ---
Subjective Patient is seen for follow-up for end-stage renal disease. No significant complaints today. Scheduled for hemodialysis in a.m. Objective - Vital Signs Vital signs: Vital Signs Temp 98.2 F 12/21/24 07:50 Pulse 70 12/21/24 07:50 Resp 16 12/21/24 07:50 BP 159/87 12/21/24 07:50 Pulse Ox 100 12/21/24 07:50 FiO2 Intake & Output 12/20/24 12/21/24 12/21/24 18:59 06:59 18:59 Intake Total 1960 590 237 Output Total 8000 25 Balance -6040 565 237 Weight 82 kg Intake: Oral 1560 590 237 Hemodialysis 400 Output: Urine 25 Hemodialysis 2900 Hemodialysis Net Amount 2500 Other 2600 Other: Voiding Method Toilet Toilet # Voids 4 # Bowel Movements 1 - Exam Patient is awake, comfortable, no acute distress Examination of the heart S1 and S2 Examination of the lungs bilateral breath sounds are heard Abdomen is soft nontender No edema noted in the lower extremities - Labs CBC & Chem 7: 12/20/24 05:39 12/20/24 05:39 Labs: Abnormal Lab Results - Last 24 Hours (Table) 12/20/24 12/20/24 12/20/24 Range/Units 12:28 17:14 20:03 POC Glucose (mg/dL) 128 H 147 H 137 H (70-110) mg/dL Microbiology - Last 24 Hours (Table) 12/17/24 17:07 CSF Gram Stain - Preliminary Cerebral Spinal Fluid CSF Culture - Preliminary Assessment and Plan Assessment: 1. End-stage renal disease maintained on hemodialysis on Friday schedule. 2. Recent MRSA bacteremia status post removal of AV graft. Maintained on daptomycin. ID following. 3. Metabolic encephalopathy possibly from overdose of opioids. Status post lumbar puncture. Neurology and infectious disease following. 4. Anemia of chronic kidney disease. On Aranesp. 5. Diabetes mellitus. 6. Coronary artery disease with cardiac stents. 7. Hypertension with chronic kidney disease. Stable. Plan: Hemodialysis in a.m.
[2024-12-21 12:01] VITALS: BP 102/70; PULSE 85; TEMP 98.1
[2024-12-21 12:13] LABS: Glucose,Whole Blood 133 mg/dL (70-110)
--- NOTE | 2024-12-21 12:17 | P.PN ---
Subjective Progress Note Date: 12/20/24 12/20/2024: Patient was seen for follow-up. Patient is getting hemodialysis. Offers no complaints. 12/18/2024: Patient was initially seen by Dr. Du Hopson. Please refer to his note for details. Patient was seen for a follow-up. Patient's was also present by the bedside. Patient denies any headache, no dizziness. Patient's mentioned that for last 3 days he was not answering any questions, but today he is much better. 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 The last few days he was just grunting or moaning. Objective - Vital Signs Vital signs: Vital Signs Temp 97.8 F 12/20/24 12:13 Pulse 68 12/20/24 12:13 Resp 16 12/20/24 12:13 BP 143/81 12/20/24 12:13 Pulse Ox 98 12/20/24 12:13 FiO2 Intake & Output 12/19/24 12/20/24 12/20/24 18:59 06:59 18:59 Intake Total 1198 1560 Balance 1198 1560 Weight 84 kg Intake: Oral 1198 1560 Other: Voiding Method Toilet Toilet # Voids 3 4 # Bowel Movements 1 - Exam Patient knows his name, and name of his Layla. He is fully oriented today. He knows it is December 2024 and that he is in [facility] in [place]. His mentation has further improved. He knows his date of 1980. He has latency time to answer questions has much improved. He is blind in the left eye. Patient is moving all 4 extremities equally. - Labs CBC & Chem 7: 12/20/24 05:39 12/20/24 05:39 Labs: Abnormal Lab Results - Last 24 Hours (Table) 12/19/24 12/19/24 12/20/24 Range/Units 17:13 20:08 05:39 RBC 2.58 L (4.40-5.60) X 10*6/uL Hgb 7.7 L (13.0-17.0) g/dL Hct 24.4 L (39.6-50.0) % MCHC 31.6 L (32.0-37.0) g/dL RDW 15.8 H (11.5-14.5) % Plt Count 133 L (140-440) X 10*3/uL MPV 13.0 H (9.5-12.2) FL Lymphocytes # 0.67 L (0.90-5.00) X 10*3/uL Anion Gap (4.00-12.00) mmol/L BUN (9.0-27.0) mg/dL Creatinine (0.6-1.5) mg/dL Est GFR (CKD-EPI) (>=60) BUN/Creatinine Ratio (12.00-20.00) Ratio Glucose (70-110) mg/dL POC Glucose (mg/dL) 170 H 163 H (70-110) mg/dL 12/20/24 12/20/24 12/20/24 Range/Units 05:39 07:15 12:28 RBC (4.40-5.60) X 10*6/uL Hgb (13.0-17.0) g/dL Hct (39.6-50.0) % MCHC (32.0-37.0) g/dL RDW (11.5-14.5) % Plt Count (140-440) X 10*3/uL MPV (9.5-12.2) FL Lymphocytes # (0.90-5.00) X 10*3/uL Anion Gap 13.90 H (4.00-12.00) mmol/L BUN 60.7 H (9.0-27.0) mg/dL Creatinine 8.7 H (0.6-1.5) mg/dL Est GFR (CKD-EPI) 7 L (>=60) BUN/Creatinine Ratio 6.98 L (12.00-20.00) Ratio Glucose 191 H (70-110) mg/dL POC Glucose (mg/dL) 217 H 128 H (70-110) mg/dL Microbiology - Last 24 Hours (Table) 12/17/24 17:07 CSF Gram Stain - Preliminary Cerebral Spinal Fluid CSF Culture - Preliminary 12/16/24 12:07 Blood Culture - Preliminary Blood Assessment and Plan Assessment: This is a 44-year-old gentleman who presents emergency department because of altered mental status, likely due to metabolic encephalopathy. Seems last m onth he had extensive prolonged hospital stay and he had abscess in the right upper extremity MRSA as well as had RSV and was hospitalized for 33 days according to the . Altered mental status: Probable due to septic/metabolic encephalopathy. CT head is negative for acute process. Meningitis/encephalitis ruled out. History of diabetes mellitus History of diabetic retinopathy over the left eye History of end-stage renal disease on dialysis History of coronary artery disease History of myocardial infarction Hyperlipidemia History of ischemic cardiomyopathy Borderline B12/folate. Plan: Patient's mentation has much improved. He has started speaking in sentences, which he was not doing in the last few days. We will continue to follow clinically. Repeat CT of the head 12/17/2024 showed no acute intracranial process. I personally reviewed CT head, agree with the findings. Clinical correlation for right mastoiditis. EEG was abnormal due to intermittent background slowing, suggestive of mild to moderate encephalopathy. No focal, lateralized or epileptiform activity was seen. TSH 0.965, B12 398, folate 5.0. Patient started on B12 and folate replacement, because of borderline levels. Is on aspirin 81 mg. Lumbar puncture was performed yesterday, which revealed WBC 0, RBC 41, glucose 61, protein 40, all normal. Comprehensive viral panel negative. Meningitis/encephalitis ruled out. ID is on board. Patient currently on daptomycin Defer the rest of the medical management to primary other specialist. Neurologically clear for discharge. May need PT OT.
--- NOTE | 2024-12-21 15:08 | P.PN ---
Subjective Progress Note Date: 12/21/24 Principal diagnosis: Reason for follow-up is a recent MRSA bacteremia Patient is a 44-year-old -[place] male with multiple comorbidities including end-stage renal disease on dialysis with recent admission to the hospital for MRSA bacteremia second right upper extremity infected, which has been removed now presented to the hospital with confusion mental status changes. On today's evaluation that is 12/21/2024, Patient is afebrile this morning patient denies having any chest pain shortness of breath or cough, the patient is currently on room air, patient denies any abdominal pain no diarrhea no nausea no vomiting. No new lab has been obtained today blood culture has been negative Objective - Vital Signs Vital signs: Vital Signs Temp 98.2 F 12/21/24 07:50 Pulse 70 12/21/24 07:50 Resp 16 12/21/24 07:50 BP 159/87 12/21/24 07:50 Pulse Ox 100 12/21/24 07:50 FiO2 Intake & Output 12/20/24 12/21/24 12/21/24 18:59 06:59 18:59 Intake Total 1960 590 237 Output Total 8000 25 Balance -6040 565 237 Weight 82 kg Intake: Oral 1560 590 237 Hemodialysis 400 Output: Urine 25 Hemodialysis 2900 Hemodialysis Net Amount 2500 Other 2600 Other: Voiding Method Toilet Toilet Toilet # Voids 4 # Bowel Movements 1 - Exam GENERAL DESCRIPTION: Middle-age male lying in bed in no distress RESPIRATORY SYSTEM: Unlabored breathing , decreased breath sounds at bases HEART: S1 S2 regular rate and rhythm , ABDOMEN: Soft , no tenderness EXTREMITIES: Left fourth toe nail is missing but no significant swelling redness or drainage was noticed - Labs CBC & Chem 7: 12/20/24 05:39 12/20/24 05:39 Labs: Abnormal Lab Results - Last 24 Hours (Table) 12/20/24 12/20/24 12/20/24 Range/Units 12:28 17:14 20:03 POC Glucose (mg/dL) 128 H 147 H 137 H (70-110) mg/dL Microbiology - Last 24 Hours (Table) 12/17/24 17:07 CSF Gram Stain - Preliminary Cerebral Spinal Fluid CSF Culture - Preliminary Assessment and Plan (1) Mental status alteration Current Visit: Yes Status: Acute Code(s): R41.82 - ALTERED MENTAL STATUS, UNSPECIFIED SNOMED Code(s): 680785162 (2) Bacteremia due to methicillin resistant Staphylococcus aureus Current Visit: No Status: Acute Code(s): R78.81 - BACTEREMIA; B95.62 - METHICILLIN RESIS STAPH INFCT CAUSING DISEASES CLASSD ELSWHR SNOMED Code(s): 49756898493084908 Plan: 1patient with a recent history of MRSA infection secondary to right upper extremity infected graft which has been removed and the patient did clear his bacteremia as of 11/13/2024 and he was supposed to be at least on a 4-week course of IV daptomycin with the patient seem to have almost completed now presenting to the hospital with confusion mental status changes did not have any fever or any elevated white count with initial workup has been negative so far 2blood cultures are so far negative patient also have a LP CSF findings are normal 3patient is back to his baseline as far as mentation patient has received adequate daptomycin for his previous episode of right upper arm graft infection with a culture negative he will not need any antibiotic on discharge this were discussed with the admitting physician Dictation was produced using [employer] dictation software. please excuse any grammatical, word or spelling errors.
[2024-12-21 17:04] VITALS: BMI 24.5
[2024-12-23] MEDS ORDERED: cloNIDine 0.3 MG/24HR PATCH TRANSDERM SCH (09:00)
== END 2024-12-21 17:23 | disposition home health service (06) | DRG 291 ==
LOC: EC 09:07 → 5NMEDONC 11:31 → OBSVTOIN 11:31 → 5NMEDONC 16:54
PROVIDERS: ADMIT Hospitalist; ATTEND Hospitalist
PROC: 009U3ZX Drainage of Spinal Canal, Percutaneous Approach, Diagnostic (ICD-10-PCS; 2024-12-17)
PROC: 5A1D70Z Performance of Urinary Filtration, Intermittent, Less than 6 Hours Per Day (ICD-10-PCS; 2024-12-17)
PROC: 4A10X4Z Monitoring of Central Nervous Electrical Activity, External Approach (ICD-10-PCS; principal; 2024-12-20)
DX: I13.2 Hypertensive heart and chronic kidney disease with heart failure and with stage 5 chronic kidney disease, or end stage renal disease (principal); G93.41 Metabolic encephalopathy; I50.43 Acute on chronic combined systolic (congestive) and diastolic (congestive) heart failure; J96.01 Acute respiratory failure with hypoxia; N18.6 End stage renal disease; R78.81 Bacteremia; I24.89 Other forms of acute ischemic heart disease; D63.1 Anemia in chronic kidney disease; Z99.2 Dependence on renal dialysis; E11.22 Type 2 diabetes mellitus with diabetic chronic kidney disease; I27.20 Pulmonary hypertension, unspecified; I34.0 Nonrheumatic mitral (valve) insufficiency; L02.413 Cutaneous abscess of right upper limb; E11.319 Type 2 diabetes mellitus with unspecified diabetic retinopathy without macular edema; E11.649 Type 2 diabetes mellitus with hypoglycemia without coma; Z79.4 Long term (current) use of insulin; Z11.52 Encounter for screening for COVID-19; E78.5 Hyperlipidemia, unspecified; E87.5 Hyperkalemia; H54.62 Unqualified visual loss, left eye, normal vision right eye; I25.10 Atherosclerotic heart disease of native coronary artery without angina pectoris; I25.2 Old myocardial infarction; I25.5 Ischemic cardiomyopathy; K59.00 Constipation, unspecified; T42.8X1A Poisoning by antiparkinsonism drugs and other central muscle-tone depressants, accidental (unintentional), initial encounter; Z79.82 Long term (current) use of aspirin; Z79.899 Other long term (current) drug therapy; Z82.49 Family history of ischemic heart disease and other diseases of the circulatory system; Z86.14 Personal history of Methicillin resistant Staphylococcus aureus infection; Z86.74 Personal history of sudden cardiac arrest; Z87.01 Personal history of pneumonia (recurrent); Z95.5 Presence of coronary angioplasty implant and graft; Z91.048 Other nonmedicinal substance allergy status; B95.62 Methicillin resistant Staphylococcus aureus infection as the cause of diseases classified elsewhere
CPT/HCPCS: 36415; 36600; 62270; 70450; 70551; 71046; 80048; 80053; 80143; 80179; 80320; 82140; 82607; 82746; 82805; 82945; 83036; 83735; 83880; 84100; 84145; 84157; 84443; 84484; 85025; 85610; 85730; 86140; 87040; 87070; 87205; 87496; 87498; 87529; 87636; 87798; 89050; 90935; 93005; 95816; 96361; 96374; 96375; 99285

== ENCOUNTER 2024-12-28 10:30 | Day surgery (SDC) | payer MEDICARE ==
[~2024-12-28 10:30] MED LIST: ALPRAZolam 0.25 MG TAB PO PRN; ALPRAZolam 0.5 MG TAB PO PRN; HEPARIN SODIUM,PORCINE (1 ML) 2,500 UNIT in SODIUM CHLORIDE 0.9% 250 ML IRRIGATION PRN; HEPARIN SODIUM,PORCINE 10,000 UNIT in SODIUM CHLORIDE 0.9% 1,000 ML IRRIGATION PRN; NITROGLYCERIN SL TABS 0.4 MG TAB SUBLINGUAL PRN
[2024-12-28 11:29] VITALS: RESP 16; TEMP 97.8
[2024-12-28] MEDS: IV FLUID CONTINUATION 1,000 ML IV ONE (11:31)
[2024-12-28] MEDS: ASPIRIN 325 MG TAB PO STA (11:32)
[2024-12-28] MEDS: SODIUM CHLORIDE 0.9% 1,000 ML in EMPTY BAG 1 BAG IV SCH (11:33)
[2024-12-28 11:35] LABS: Glucose,Whole Blood 118 mg/dL (70-110)
[2024-12-28] MEDS: LIDOCAINE 1% INJ 10MG/ML (20 ML MDV) SQ ONE (12:29)
[2024-12-28] MEDS: fentaNYL (PF) 50 MCG/1 ML VIAL IVP ONE (12:30)
[2024-12-28] MEDS: MIDAZOLAM 2 MG/2 ML VIAL IVP ONE (12:30)
[2024-12-28] MEDS: VERAPAMIL SYRINGE (5 MG/10 ML) INTRAARTER ONE (12:31)
[2024-12-28] MEDS: HEPARIN SODIUM 1,000 UN/ML (10ML VL) IV ONE (12:50)
[2024-12-28] MEDS: IOPAMIDOL-370 200ML BTL INJ ONE (13:03)
[2024-12-28 13:04] LABS: O2 Sat Blood Gas 47.8 %
[2024-12-28 13:06] LABS: O2 Sat Blood Gas 49.6 %
[2024-12-28 13:07] LABS: O2 Sat Blood Gas 49.1 %
[2024-12-28 13:08] LABS: O2 Sat Blood Gas 90.7 %
--- NOTE | 2024-12-28 13:29 | P.CARDCATH ---
Date of Procedure: 12/28/24 Description of Procedure: DIAGNOSTIC CORONARY ANGIOGRAPHY and LEFT HEART CATH REPORT and right heart catheterization PROCEDURES PERFORMED: Left heart catheterization Right heart catheterization Selective coronary angiography Moderate conscious sedation 32 mins Right radial access INDICATION: Cardiomyopathy, congestive heart failure NYHA class III-IV, severe pulmonary hypertension with dilated RV CONSENT: I have explained the procedural steps of above-mentioned procedures in layman's terms to the patient. I discussed the risks (including but not limited to stroke, emergent vascular or cardiac surgery or ), benefits and alternative therapies for the above-mentioned procedure. I discussed the risks of sedation/analgesia and blood product administration (if indicated). The patient has indicated understanding and acceptance of these risks. Conscious Sedation: Patient's ECG, heart rate, blood pressure, pulse oximetry were monitored throughout the duration of procedure under my direct supervision. 1 mg Versed and 50 mcg Fentanyl were used for induction of moderate conscious sedation. Total duration of moderate concious sedation 32 minutes. PROCEDURAL DETAILS: Patient was prepped and draped in sterile fashion. 1% lidocaine was infiltrated over the right radial artery. Right radial access was obtained via modified seldinger technique. Medications: 5mg of verapamil was administed in the radial sheet. 5000 Units of Heparin was administed once the catheter reached the aortic root Wires and Catheter used: J wire was advanced under fluroscopy to get to aortic root. 5 bangladeshi JR 4 diagnostic catheter was utilized obtain left ventricular pressure and pressure gradint across aortic valve. 5 bangladeshi JR 5 diagnostic catheter was used to selectively engage the right coronary ostium. 5 bangladeshi JL 3.5 diagnostic catheter was utilized to selectively engage the left coronary ostium. Angiographic images were reviewed in detail. Catheter and wire were removed. Radial sheet was flushed. The right radial sheath was removed and a TR band was placed. Patent hemostasis was achieved. The patient tolerated the procedure well. Patient was transported back to the post catheterization holding area in stable condition. TECHNICAL DETAILS Total radiation: 316 mGy Total fluro time: 3.6 minutes Total contrast used: Isovue 50 mL Complications: [none] Estimated Blood loss: less than 15 ml HEMODYNAMICS: Aortic Pressure: 150/90 mmHg. LV pressure: 150/10 mmHg. LVEDP 25 mmHg. There was no significant gradient across the aortic valve. Right heart catheterization Pulmonary capillary wedge: A-wave 20 manage, V wave 30 mmHg, mean 25 mmHg. Peak V wave suggest moderate mitral to severe regurgitation PA pressure 58 over 20 mmHg, mean 32 mmHg RV pressure 58 over 0 mmHg, RVEDP 15 mmHg RA pressure 15 mmHg Heart rate 64, BSA 2.02 m, hemoglobin 7.6 Arterial sat 91% Pulmonary artery sat 48% Right ventricular side 50% Right atrial side 50% Adamaris cardiac output 6.2 L/min. Adamaris cardiac index 3.06 L/min/m Stroke-volume 96.9 mL Thermodilution was not performed because of moderate to severe TR DIAGNOSTIC CORONARY ANGIOGRAPHY and LEFT HEART CATH REPORT and right heart catheterization PROCEDURES PERFORMED: Left heart catheterization Right heart catheterization Selective coronary angiography Moderate conscious sedation 32 mins Right radial access INDICATION: Cardiomyopathy, congestive heart failure NYHA class III-IV, severe pulmonary hypertension with dilated RV Patient is end-stage renal disease on hemodialysis. He is anemic. I have explained the high risk nature of this cardiac cath procedure including risk of further kidney injury and risk of major bleeding in setting of anemia. Patient is agreeable to proceed. CONSENT: I have explained the procedural steps of above-mentioned procedures in layman's terms to the patient. I discussed the risks (including but not limited to stroke, emergent vascular or cardiac surgery or ), benefits and alternative therapies for the above-mentioned procedure. I discussed the risks of sedation/analgesia and blood product administration (if indicated). The patient has indicated understanding and acceptance of these risks. Conscious Sedation: Patient's ECG, heart rate, blood pressure, pulse oximetry were monitored throughout the duration of procedure under my direct supervision. 1 mg Versed and 50 mcg Fentanyl were used for induction of moderate conscious sedation. Total duration of moderate concious sedation 32 minutes. PROCEDURAL DETAILS: Patient was prepped and draped in sterile fashion. 1% lidocaine was infiltrated over the right radial artery. 1% lidocaine was infiltrated in the right antecubital fossa. The the basilar vein IV cannula was exchanged for a 6 [place] slender glide sheath. Through the slender glide sheath the Bedford-Arely catheter was advanced to the wedge position under fluoroscopy guidance. Sequential pressures and blood samples were collected from pulmonary wedge position, pulmonary artery, RV and RA. The Bedford-Arely catheter was removed and the sheath was flushed. Right radial access was obtained via modified seldinger technique. Medications: 5mg of verapamil was administed in the radial sheet. 5000 Units of Heparin was administed once the catheter reached the aortic root Wires and Catheter used: J wire was advanced under fluroscopy to get to aortic root. 5 bangladeshi JR 4 diagnostic catheter was utilized obtain left ventricular pressure and pressure gradint across aortic valve. 5 bangladeshi JR 5 diagnostic catheter was used to selectively engage the right coronary ostium. 5 bangladeshi JL 3.5 diagnostic catheter was utilized to selectively engage the left coronary ostium. Angiographic images were reviewed in detail. Catheter and wire were removed. Radial sheet was flushed. The right radial sheath was removed and a TR band was placed. Patent hemostasis was achieved. The patient tolerated the procedure well. Patient was transported back to the post catheterization holding area in stable condition. TECHNICAL DETAILS Total radiation: 316 mGy Total fluro time: 3.6 minutes Total contrast used: Isovue 50 mL Complications: [none] Estimated Blood loss: less than 15 ml HEMODYNAMICS: Aortic Pressure: 150/90 mmHg. LV pressure: 150/10 mmHg. LVEDP 25 mmHg. There was no significant gradient across the aortic valve. Right heart catheterization Pulmonary capillary wedge: A-wave 20 manage, V wave 30 mmHg, mean 25 mmHg. Peak V wave suggest moderate mitral to severe regurgitation PA pressure 58 over 20 mmHg, mean 32 mmHg RV pressure 58 over 0 mmHg, RVEDP 15 mmHg RA pressure 15 mmHg Heart rate 64, BSA 2.02 m, hemoglobin 7.6 Arterial sat 91% Pulmonary artery sat 48% Right ventricular side 50% Right atrial side 50% Adamaris cardiac output 6.2 L/min. Adamaris cardiac index 3.06 L/min/m Stroke-volume 96.9 mL Thermodilution was not performed because of moderate to severe TR SELECTIVE CORONARY ARTERIOGRAPHY: LEFT MAIN: Left main is very short and bifurcates into LAD and LCx. LEFT ANTERIOR DESCENDING CORONARY ARTERY: Proximal LAD has 10% disease. Mid LAD has a prior long stented segment. Proximal part of the stent has 40% in-stent disease. Mid part of the stent just after giving diagonal branch is 100% occluded. The diagonal arteries moderate caliber. Mid part of diagonal artery has diffuse 60 to 70% disease. LEFT CIRCUMFLEX CORONARY ARTERY: LCx is nondominant. Proximal LCx 20% disease, mid LCx has 30% disease. Proximal LCx gives rise to a small OM branch branch. It is diffusely diseased with 70% stenosis. Mid LCx bifurcates into a small OM 2 and a medium size OM 3 branch. OM 2 has 50 to 60% diffuse disease. OM 3 has 60 to 70% diffuse disease. RIGHT CORONARY ARTERY: Dominant vessel. Proximal RCA has 20% diffuse disease. Mid RCA has 40% diffuse disease. Distal RCA has 40 to 50% diffuse disease. RCA gives rise to small RV marginal branch which is diffusely diseased. Distal RCA gives rise to PDA and PL branch. Both PDA and PL branches has 70 to 80% diffuse disease. IMPRESSION: 1. 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 Moderate to severe diffuse disease in diagonal 1, OM1, OM 2 and OM 3, PDA and PL branches 3. Moderate diffuse nonobstructive disease in RCA. 4. Normal Cardiac index 5. Elevated LVEDP 6. Peak V wave suggestive of moderate to severe mitral regurgitation 7. Mild pulmonary hypertension, likely group 2 8. Elevated RA filling pressures PLAN: Recommend viability testing before performing in-stent TECHNICAL FELLOW of LAD Moderate to severe diffuse disease in branch vessel does not seem amenable for intervention. Further optimization of heart failure medications. Recommend adding Entresto, and uptitrating beta-jamarcus if tolerated. Performing Physician Romaine Cole MD, FACC, RPVI
--- NOTE | 2024-12-28 13:29 | P.CARDCATH ---
Date of Procedure: 12/28/24 Description of Procedure: DIAGNOSTIC CORONARY ANGIOGRAPHY and LEFT HEART CATH REPORT and right heart catheterization PROCEDURES PERFORMED: Left heart catheterization Right heart catheterization Selective coronary angiography Moderate conscious sedation 32 mins Right radial access INDICATION: Cardiomyopathy, congestive heart failure NYHA class III-IV, severe pulmonary hypertension with dilated RV Patient is end-stage renal disease on hemodialysis. He is anemic. I have explained the high risk nature of this cardiac cath procedure including risk of further kidney injury and risk of major bleeding in setting of anemia. Patient is agreeable to proceed. CONSENT: I have explained the procedural steps of above-mentioned procedures in layman's terms to the patient. I discussed the risks (including but not limited to stroke, emergent vascular or cardiac surgery or ), benefits and alternative therapies for the above-mentioned procedure. I discussed the risks of sedation/analgesia and blood product administration (if indicated). The patient has indicated understanding and acceptance of these risks. Conscious Sedation: Patient's ECG, heart rate, blood pressure, pulse oximetry were monitored throughout the duration of procedure under my direct supervision. 1 mg Versed and 50 mcg Fentanyl were used for induction of moderate conscious sedation. Total duration of moderate concious sedation 32 minutes. PROCEDURAL DETAILS: Patient was prepped and draped in sterile fashion. 1% lidocaine was infiltrated over the right radial artery. 1% lidocaine was infiltrated in the right antecubital fossa. The the basilar vein IV cannula was exchanged for a 6 [place] slender glide sheath. Through the slender glide sheath the [place]-Arely catheter was advanced to the wedge position under fluoroscopy guidance. Sequential pressures and blood samples were collected from pulmonary wedge position, pulmonary artery, RV and RA. The Len[place]-Arely catheter was removed and the sheath was flushed. Right radial access was obtained via modified seldinger technique. Medications: 5mg of verapamil was administed in the radial sheet. 5000 Units of Heparin was administed once the catheter reached the aortic root Wires and Catheter used: J wire was advanced under fluroscopy to get to aortic root. 5 barbadian JR 4 diagnostic catheter was utilized obtain left ventricular pressure and pressure gradint across aortic valve. 5 barbadian JR 5 diagnostic catheter was used to selectively engage the right coronary ostium. 5 barbadian JL 3.5 diagnostic catheter was utilized to selectively engage the left coronary ostium. Angiographic images were reviewed in detail. Catheter and wire were removed. Radial sheet was flushed. The right radial sheath was removed and a TR band was placed. Patent hemostasis was achieved. The patient tolerated the procedure well. Patient was transported back to the post catheterization holding area in stable condition. TECHNICAL DETAILS Total radiation: 316 mGy Total fluro time: 3.6 minutes Total contrast used: Isovue 50 mL Complications: [none] Estimated Blood loss: less than 15 ml HEMODYNAMICS: Aortic Pressure: 150/90 mmHg. LV pressure: 150/10 mmHg. LVEDP 25 mmHg. There was no significant gradient across the aortic valve. Right heart catheterization Pulmonary capillary wedge: A-wave 20 manage, V wave 30 mmHg, mean 25 mmHg. Peak V wave suggest moderate mitral to severe regurgitation PA pressure 58 over 20 mmHg, mean 32 mmHg RV pressure 58 over 0 mmHg, RVEDP 15 mmHg RA pressure 15 mmHg Heart rate 64, BSA 2.02 m, hemoglobin 7.6 Arterial sat 91% Pulmonary artery sat 48% Right ventricular side 50% Right atrial side 50% Adamaris cardiac output 6.2 L/min. Adamaris cardiac index 3.06 L/min/m Stroke-volume 96.9 mL Thermodilution was not performed because of moderate to severe TR SELECTIVE CORONARY ARTERIOGRAPHY: LEFT MAIN: Left main is very short and bifurcates into LAD and LCx. LEFT ANTERIOR DESCENDING CORONARY ARTERY: Proximal LAD has 10% disease. Mid LAD has a prior long stented segment. Proximal part of the stent has 40% in-stent disease. Mid part of the stent just after giving diagonal branch is 100% occluded. The diagonal arteries moderate caliber. Mid part of diagonal artery has diffuse 60 to 70% disease. LEFT CIRCUMFLEX CORONARY ARTERY: LCx is nondominant. Proximal LCx 20% disease, mid LCx has 30% disease. Proximal LCx gives rise to a small OM branch branch. It is diffusely diseased with 70% stenosis. Mid LCx bifurcates into a small OM 2 and a medium size OM 3 branch. OM 2 has 50 to 60% diffuse disease. OM 3 has 60 to 70% diffuse disease. RIGHT CORONARY ARTERY: Dominant vessel. Proximal RCA has 20% diffuse disease. Mid RCA has 40% diffuse disease. Distal RCA has 40 to 50% diffuse disease. RCA gives rise to small RV marginal branch which is diffusely diseased. Distal RCA gives rise to PDA and PL branch. Both PDA and PL branches has 70 to 80% diffuse disease. IMPRESSION: 1. 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 Moderate to severe diffuse disease in diagonal 1, OM1, OM 2 and OM 3, PDA and PL branches 3. Moderate diffuse nonobstructive disease in RCA. 4. Normal Cardiac index 5. Elevated LVEDP 6. Peak V wave suggestive of moderate to severe mitral regurgitation 7. Mild pulmonary hypertension, likely group 2 8. Elevated RA filling pressures PLAN: Recommend viability testing before performing in-stent METAL ENGINEERING PROCESS WORKER of LAD Moderate to severe diffuse disease in branch vessel does not seem amenable for intervention. Further optimization of heart failure medications. Recommend adding Entresto, and uptitrating beta-jamarcus if tolerated. Performing Physician Romaine Cole MD, FACC, RPVI
[2024-12-28] MEDS: hydrALAZINE HCL 50 MG TAB PO STA (13:48)
[2024-12-28] MEDS: CHOLESTYRAMINE (WITH SUGAR) 4 GM PACKET PO ONE (13:48)
[2024-12-28 16:21] VITALS: BP 150/92; PULSE 62
== END 2024-12-28 17:00 | disposition home or self-care (01) ==
LOC: CATHCVL 10:30
PROVIDERS: ATTEND Student in an Organized Health Care Education/Training Program
DX: I42.8 Other cardiomyopathies (principal); I13.2 Hypertensive heart and chronic kidney disease with heart failure and with stage 5 chronic kidney disease, or end stage renal disease; I50.22 Chronic systolic (congestive) heart failure; E11.22 Type 2 diabetes mellitus with diabetic chronic kidney disease; N18.6 End stage renal disease; D64.9 Anemia, unspecified; I25.10 Atherosclerotic heart disease of native coronary artery without angina pectoris; I07.1 Rheumatic tricuspid insufficiency; I27.20 Pulmonary hypertension, unspecified; Z99.2 Dependence on renal dialysis; Z79.899 Other long term (current) drug therapy
CPT/HCPCS: 99152; 99153; 93460; 85018; 82810; J2250; J2003; J1644; J3010; Q9967

== ENCOUNTER 2024-12-29 11:13 | Inpatient (IN) | payer MEDICARE ==
[2024-12-29] MEDS ORDERED: VANCOMYCIN IV PER PHARMACY 1 EACH MISC MISCELLANE PRN (11:38)
--- NOTE | 2024-12-29 11:44 | ED ---
General Adult HPI - General Chief complaint: Recheck/Abnormal Lab/Rx Stated complaint: Abn labs Time Seen by Provider: 12/29/24 11:15 Source: patient, RN notes reviewed, old records reviewed Mode of arrival: ambulatory Limitations: no limitations - History of Present Illness Initial comments: This a 44-year-old male who was at dialysis today and his blood culture came back for MRSA so patient was told to come to the emergency department to be admitted with ID consult. Patient has no symptoms today whatsoever. Patient did get dialyzed today. Patient denies any fever chills patient denies any pain. - Related Data Home Medications Medication Instructions Recorded Confirmed Nitroglycerin Sl Tabs [Nitrostat] 0.4 mg SL Q5M PRN 05/09/20 12/29/24 carvediloL [Coreg] 50 mg PO BID-W/MEALS 08/28/24 12/29/24 cloNIDine 0.3 MG/24HR PATCH 1 patch TRANSDERM REDD 08/28/24 12/29/24 [Catapres-TTS] Cyclobenzaprine [Flexeril] 5 mg PO TID PRN 12/16/24 12/29/24 Isosorbide Dinitrate [Isordil] 10 mg PO TID 12/16/24 12/29/24 Pantoprazole [Protonix] 40 mg PO DAILY PRN 12/16/24 12/29/24 Sennosides [Senokot] 8.6 mg PO BID PRN 12/16/24 12/29/24 hydrALAZINE HCL [Apresoline] 50 mg PO TID 12/16/24 12/29/24 Methoxy Peg-Epoetin Beta [Mircera] 100 mcg IV Q14D 12/17/24 12/29/24 amLODIPine [Norvasc] 10 mg PO HS 12/28/24 12/29/24 Previous Rx's Medication Instructions Recorded Aspirin 81 mg PO DAILY #30 tab 06/17/24 Calcium Carbonate [Tums] 1,000 mg PO Q4HR PRN tab 11/24/24 Mag Hydrox/Al Hydrox/Simeth 15 ml PO Q6HR PRN ml 11/24/24 [Maalox] Midodrine [ProAmatine] 5 mg PO DAILY PRN #30 tab 11/24/24 Torsemide [Demadex] 40 mg PO DAILY #30 tab 11/24/24 Cyanocobalamin [Vitamin B-12] 1,000 mcg PO DAILY #5 tab 12/21/24 Folic Acid 1 mg PO DAILY #30 tab 12/21/24 Allergies Allergy/AdvReac Type Severity Reaction Status Date / Time nickel Allergy Rash/Hives Verified 12/29/24 12:15 Review of Systems ROS Statement: Those systems with pertinent positive or pertinent negative responses have been documented in the HPI. ROS Other: All systems not noted in ROS Statement are negative. Past Medical History Past Medical History: Coronary Artery Disease (CAD), Heart Failure, Eye Disorder, GERD/Reflux, Hyperlipidemia, Hypertension, Myocardial Infarction ([place]), Renal Disease, Respiratory Disorder Additional Past Medical History / Comment(s): chronic kidney injury/acute anemia/advanced CAD/valvular disease/severe pulmonary htn/abnormal liver test/hyperlipidemia. Other hx: IDDM type II, pt states informed he had kidney disease in Feb, 2020 then ESRD diagnosed 05/09/20 with hemodialysis M/W/F,neuropathy bilateral feet, L foot ulcer with debridements, L eye blindness d/t diabetic retinopathy, ischemic cardiomyopathy, anasarca/lower leg edema. Last Myocardial Infarction Date:: 03/30/2018 History of Any Multi-Drug Resistant Organisms: None Reported Date of last positivie culture/infection: 10/31/24 MDRO Source:: blood, sputum Past Surgical History: Heart Catheterization With Stent Additional Past Surgical History / Comment(s): 05/17/20 R subclavian hemodialysis catheter, debridements L foot wound, R eye surgery-pt believes to remove catar act, SEAN fistula Past Anesthesia/Blood Transfusion Reactions: No Reported Reaction Additional Past Anesthesia/Blood Transfusion Reaction / Comment(s): During 3rd debridement L foot ulcer Date of Last Stent Placement:: 03/31/2018 Past Psychological History: No Psychological Hx Reported Smoking Status: Never smoker Past Alcohol Use History: None Reported Past Drug Use History: None Reported - Past Family History Mother Family Medical History: Diabetes Mellitus, Hyperlipidemia, Hypertension Father Family Medical History: Diabetes Mellitus, Hypertension General Exam - General Exam Comments Initial Comments: GENERAL: Patient is well-developed and well-nourished. Patient is nontoxic and well- hydrated and is in no acute distress. ENT: Neck is soft and supple. No significant lymphadenopathy is noted. Oropharynx is clear. Moist mucous membranes. Neck has full range of motion without eliciting any pain. EYES: The sclera were anicteric and conjunctiva were pink and moist. Extraocular movements were intact and pupils were equal round and reactive to light. Eyelids were unremarkable. PULMONARY: Unlabored respirations. Good breath sounds bilaterally. No audible rales rhonchi or wheezing was noted. CARDIOVASCULAR: There is a regular rate and rhythm without any murmurs gallops or rubs. ABDOMEN: Soft and nontender with normal bowel sounds. SKIN: Skin is clear with no lesions or rashes and otherwise unremarkable. NEUROLOGIC: Patient is alert and oriented x3. Cranial nerves II through XII are grossly intact. Motor and sensory are also intact. Normal speech, volume and content. Symmetrical smile. MUSCULOSKELETAL: Normal extremities with adequate strength and full range of motion. LYMPHATICS: No significant lymphadenopathy is noted PSYCHIATRIC: Normal psychiatric evaluation. Limitations: no limitations Course Vital Signs 12/29/24 12/29/24 11:15 12:42 Temperature 98.3 F 98.2 F Pulse Rate 72 71 Respiratory 18 18 Rate Blood Pressure 168/84 156/90 O2 Sat by Pulse 100 98 Oximetry Medical Decision Making - Medical Decision Making EKG is interpreted by myself but EKG shows sinus rhythm at 71 bpm NM interval 178 QRS is 105 QT interval is 440 QTc is 462. Patient's EKG shows no ST segment elevation or depression. Was pt. sent in by a medical professional or institution ([facility] Metz, [facility], urgent care, hospital, or snf...) When possible be specific @ -No Did you speak to anyone other than the patient for history (EMS, parent, family, police, friend...)? What history was obtained from this source @ -No Did you review nursing and triage notes (agree or disagree)? Why? @ -I reviewed and agree with nursing and triage notes Were old charts reviewed (outside hosp., previous admission, EMS record, old EKG, old radiological studies, urgent care reports/EKG's, snf records)? Report findings @ -No old charts were reviewed Differential Diagnosis? @ -Positive blood culture, sepsis, infected catheter, this is not an all- inclusive list EKG interpreted by me (3pts min.). @ -As above X-rays interpreted by me (1pt min.). @ -None done CT interpreted by me (1pt min.). @ -None done U/S interpreted by me (1pt. min.). @ -None done What testing was considered but not performed or refused? (CT, X-rays, U/S, labs)? Why? @ -None What meds were considered but not given or refused? Why? @ -None Did you discuss the management of the patient with other professionals (willie pacheco i.e. , PA, [employer], lab, RT, psych nurse, social service assistant, information assurance manager, teacher, plain clothes police officer, outpatient case manager)? Give summary @ -I spoke with Dr. Juarez he agreed the patient need to be admitted and he told me that the patient had a positive blood culture for MRSA. I spoke with [facility] hospitalist they agreed admit the patient admit the patient wrote admitting orders Was smoking cessation discussed for >3mins.? @ -No Was critical care preformed (if so, how long)? @ -No Were there social determinants of health that impacted care today? How? (Homelessness, low income, unemployed, alcoholism, drug addiction, transportation, low edu. Level, literacy, decrease access to med. care, snf, rehab)? @ -No Was there de-escalation of care discussed even if they declined (Discuss DNR or withdrawal of care, Hospice)? DNR status @ -No What co-morbidities impacted this encounter? (DM, HTN, Smoking, COPD, CAD, Cancer, CVA, ARF, Chemo, Hep., AIDS, mental health diagnosis, sleep apnea, morbid obesity)? @ -None Was patient admitted / discharged? Hospital course, mention meds given and route, prescriptions, significant lab abnormalities, going to OR and other pertinent info. @ -Patient had a positive culture at the dialysis center so I started the patient on Vanco I consulted Dr. Larios nephrology infectious disease and cardiology Undiagnosed new problem with uncertain prognosis? @ -No Drug Therapy requiring intensive monitoring for toxicity (Heparin, Nitro, Insulin, Cardizem)? @ -No Were any procedures done? @ -No Diagnosis/symptom? @ -Bacteremia MRSA Acute, or Chronic, or Acute on Chronic? @ -Acute Uncomplicated (without systemic symptoms) or Complicated (systemic symptoms)? @ -Complicated Side effects of treatment? @ -No Exacerbation, Progression, or Severe Exacerbation? @ -No Poses a threat to life or bodily function? How? (Chest pain, [place], [place], pneumonia, PE, COPD, DKA, ARF, appy, cholecystitis, CVA, Diverticulitis, Homicidal, Suicidal, threat to staff... and all critical care pts) @ -Yes this can lead to sepsis and endorgan dysfunction - Lab Data Result diagrams: 12/29/24 11:56 12/29/24 11:56 Lab Results 12/29/24 12/29/24 12/29/24 Range/Units 11:56 11:56 11:56 WBC 6.6 (3.8-10.6) k/uL RBC 2.75 L (4.30-5.90) m/uL Hgb 8.4 L (13.0-17.5) gm/dL Hct 27.2 L (39.0-53.0) % MCV 98.9 (80.0-100.0) fL MCH 30.6 (25.0-35.0) pg MCHC 31.0 (31.0-37.0) g/dL RDW 18.4 H (11.5-15.5) % Plt Count 165 (150-450) k/uL MPV 11.6 Neutrophils % 76 % Lymphocytes % 15 % Monocytes % 6 % Eosinophils % 2 % Basophils % 0 % Neutrophils # 5.1 (1.3-7.7) k/uL Lymphocytes # 1.0 (1.0-4.8) k/uL Monocytes # 0.4 (0-1.0) k/uL Eosinophils # 0.2 (0-0.7) k/uL Basophils # 0.0 (0-0.2) k/uL Hypochromasia Slight Anisocytosis Slight Macrocytosis Slight Sodium 133 L (137-145) mmol/L Potassium 3.4 L (3.5-5.1) mmol/L Chloride 93 L (98-107) mmol/L Carbon Dioxide 33 H (22-30) mmol/L Anion Gap 7 mmol/L BUN 18 (9-20) mg/dL Creatinine 3.79 H (0.66-1.25) mg/dL Est GFR (CKD-EPI)AfAm 21 (>60 ml/min/1.73 sqM) Est GFR (CKD-EPI)NonAf 18 (>60 ml/min/1.73 sqM) Glucose 83 (74-99) mg/dL Plasma Lactic Acid Robb 0.9 (0.7-2.0) mmol/L Calcium 8.6 (8.4-10.2) mg/dL Total Bilirubin 0.9 (0.2-1.3) mg/dL AST 18 (17-59) U/L ALT 15 (4-49) U/L Alkaline Phosphatase 198 H (38-126) U/L Total Protein 7.4 (6.3-8.2) g/dL Albumin 3.4 L (3.5-5.0) g/dL Disposition Clinical Impression: Bacteremia due to methicillin resistant Staphylococcus aureus Disposition: ADMITTED IP TO THIS HOSP Referrals: Jj Galindo MD [Primary Care Provider] - 1-2 days Time of Disposition: 13:17
--- NOTE | 2024-12-29 12:00 | P.NPCON ---
History of Present Illness - Reason for Consult end stage renal disease - History of Present Illness Reason for consultation: End-stage renal disease History of present illness: Patient is a 45-year-old male seen in renal consultation for end-stage renal disease. Patient was seen and examined in the emergency room. He is maintained on hemodialysis on Friday schedule. He completed hemodialysis this morning. Patient had blood cultures done last week and they were finalized today showing MRSA in 2 out of 2 bottles. Patient recently completed course of daptomycin also received a dose of vancomycin on December 27, 2024 with dialysis. Once the cultures were called he was advised to come to the hospital. He denies any fever or chills. No vomiting or diarrhea. No chest pain or shortness of breath. Patient does have longstanding history of diabetes. Also has history of coronary artery disease with a stent placed in the past. Patient states he had a cardiac cath done yesterday which showed 100% mid LAD in-stent stenosis. He currently has a permacath for his dialysis access. Patient's AV graft was removed due to persistent bacteremia earlier this year. Vital signs are stable. General: No acute distress. HEENT: Head exam is unremarkable. LUNGS: No audible rhonchi or wheezes. HEART: Rate and Rhythm are regular. ABDOMEN: Nontender. EXTREMITITES: No edema. Past Medical History Past Medical History: Coronary Artery Disease (CAD), Heart Failure, Eye Disorder, GERD/Reflux, Hyperlipidemia, Hypertension, Myocardial Infarction ([place]), Renal Disease, Respiratory Disorder Additional Past Medical History / Comment(s): chronic kidney injury/acute anemia/advanced CAD/valvular disease/severe pulmonary htn/abnormal liver test/hyperlipidemia. Other hx: IDDM type II, pt states informed he had kidney disease in Feb, 2020 then ESRD diagnosed 05/09/20 with hemodialysis M/W/F,neuropathy bilateral feet, L foot ulcer with debridements, L eye blindness d/t diabetic retinopathy, ischemic cardiomyopathy, anasarca/lower leg edema. Last Myocardial Infarction Date:: 03/30/2018 History of Any Multi-Drug Resistant Organisms: None Reported Date of last positivie culture/infection: 10/31/24 MDRO Source:: blood, sputum Past Surgical History: Heart Catheterization With Stent Additional Past Surgical History / Comment(s): 05/17/20 R subclavian hemodialysis catheter, debridements L foot wound, R eye surgery-pt believes to remove cataract, SEAN fistula Past Anesthesia/Blood Transfusion Reactions: No Reported Reaction Additional Past Anesthesia/Blood Transfusion Reaction / Comment(s): During 3rd debridement L foot ulcer Date of Last Stent Placement:: 03/31/2018 Past Psychological History: No Psychological Hx Reported Smoking Status: Never smoker Past Alcohol Use History: None Reported Past Drug Use History: None Reported - Past Family History Mother Family Medical History: Diabetes Mellitus, Hyperlipidemia, Hypertension Father Family Medical History: Diabetes Mellitus, Hypertension Medications and Allergies Home Medications Medication Instructions Recorded Confirmed Type Nitroglycerin Sl Tabs [Nitrostat] 0.4 mg SL Q5M PRN 05/09/20 12/28/24 History Aspirin 81 mg PO DAILY #30 tab 06/17/24 12/28/24 Rx carvediloL [Coreg] 50 mg PO BID-W/MEALS 08/28/24 12/28/24 History cloNIDine 0.3 MG/24HR PATCH 1 patch TRANSDERM WEEKLY 08/28/24 12/28/24 History [Catapres-TTS] Calcium Carbonate [Tums] 1,000 mg PO Q4HR PRN tab 11/24/24 12/28/24 Rx Mag Hydrox/Al Hydrox/Simeth 15 ml PO Q6HR PRN ml 11/24/24 12/28/24 Rx [Maalox] Midodrine [ProAmatine] 5 mg PO DAILY PRN #30 tab 11/24/24 12/28/24 Rx Torsemide [Demadex] 40 mg PO DAILY #30 tab 11/24/24 12/28/24 Rx Cyclobenzaprine [Flexeril] 5 mg PO TID PRN 12/16/24 12/28/24 History Isosorbide Dinitrate [Isordil] 10 mg PO TID 12/16/24 12/28/24 History Pantoprazole [Protonix] 40 mg PO DAILY PRN 12/16/24 12/28/24 History Sennosides [Senokot] 8.6 mg PO BID PRN 12/16/24 12/28/24 History hydrALAZINE HCL [Apresoline] 50 mg PO TID 12/16/24 12/28/24 History Methoxy Peg-Epoetin Beta [Mircera] 100 mcg IV Q14D 12/17/24 12/28/24 History Cyanocobalamin [Vitamin B-12] 1,000 mcg PO DAILY #5 tab 12/21/24 12/28/24 Rx Folic Acid 1 mg PO DAILY #30 tab 12/21/24 12/28/24 Rx amLODIPine [Norvasc] 10 mg PO HS 12/28/24 12/28/24 History Allergies Allergy/AdvReac Type Severity Reaction Status Date / Time nickel Allergy Rash/Hives Verified 12/29/24 11:18 Physical Exam Vitals: Vital Signs Temp Pulse Resp BP Pulse Ox 12/29/24 11:15 98.3 F 72 18 168/84 100 Intake and Output 12/28/24 12/29/24 12/29/24 22:59 06:59 14:59 Other: Weight 77.111 kg Assessment and Plan Plan: Assessment: 1. End-stage renal disease maintained on hemodialysis on Friday schedule via permacath. 2. MRSA bacteremia. AV graft excised earlier this year due to bacteremia. Now concerning that permacath may be the source for infection. 3. Anemia of chronic kidney disease. 4. Hypertension with chronic kidney disease. Plan: Patient completed hemodialysis this morning. Consult vascular surgery to remove permacath and send the tip for culture. Infectious disease consulted to manage antibiotics. Continue to assess daily for need for dialysis. Thank you for the consultation. I will continue to follow the patient with you during his hospital stay.
[2024-12-29 12:06] LABS: Anisocytosis Slight; Basophils % (A) 0 %; Eosinophils # (A) 0.2 k/uL (0-0.7); Eosinophils % (A) 2 %; HCT 27.2 % (39.0-53.0); HGB 8.4 gm/dL (13.0-17.5); Hypochromasia Slight; Lymphocytes % (A) 15 %; MCH 30.6 pg (25.0-35.0); MCV 98.9 fL (80.0-100.0); Macrocytosis Slight; Mean Platelet Volume 11.6; Monocytes # (A) 0.4 k/uL (0-1.0); Monocytes % (A) 6 %; Neutrophils # (A) 5.1 k/uL (1.3-7.7); Neutrophils % (A) 76 %; Platelet Count 165 k/uL (150-450); RBC 2.75 m/uL (4.30-5.90); RDW 18.4 % (11.5-15.5); WBC 6.6 k/uL (3.8-10.6)
[2024-12-29 12:22] LABS: ALT 15 U/L (4-49); AST 18 U/L (17-59); African American GFR (CKD) 21 (>60 ml/min/1.73 sqM); Albumin 3.4 g/dL (3.5-5.0); Alkaline Phosphatase 198 U/L (38-126); Anion Gap 7 mmol/L; Blood Urea Nitrogen 18 mg/dL (9-20); Calcium 8.6 mg/dL (8.4-10.2); Carbon Dioxide 33 mmol/L (22-30); Chloride 93 mmol/L (98-107); Glucose 83 mg/dL (74-99); Non-African American GFR(CKD) 18 (>60 ml/min/1.73 sqM); Potassium 3.4 mmol/L (3.5-5.1); Sodium 133 mmol/L (137-145); Total Bilirubin 0.9 mg/dL (0.2-1.3); Total Protein 7.4 g/dL (6.3-8.2)
[2024-12-29] MEDS: VANCOMYCIN 1,250 MG in SODIUM CHLORIDE 0.9% 250 ML IVPB ONE (12:37)
[2024-12-29] MEDS: LIDOCAINE 1% INJ 10MG/ML (20 ML MDV) SQ ONE (14:59)
--- NOTE | 2024-12-29 15:18 | P.GSCN ---
History of Present Illness Consult date: 12/29/24 Reason for Consult: Bacteremia, HD catheter removal Requesting physician: Filipe Galan History of present illness: This a pleasant 44-year-old male with multiple comorbidities including coronary artery disease, diabetes mellitus, end-stage renal disease on hemodialysis history of MRSA bacteremia with removal of right upper extremity dialysis graft who presented to the emergency department directed by his physician for positive blood cultures for MRSA. Patient currently has a right IJ tunnel catheter in place. States has been functioning fine. He has not noticed any redness, swelling or drainage. He denies any fevers, chills or bodyaches. Yesterday he underwent an outpatient cardiac catheterization with findings of 100% mid LAD in-stent stenosis, moderate to severe diffuse disease in diagonal 1, OM1, OM 2 and OM 3, PDA and PL branches, moderate diffuse nonobstructive disease in RCA, elevated LVEDP, and moderate to severe mitral regurgitation, mild pulmonary hypertension likely group 2 and elevated RA filling pressures. Patient without any leukocytosis, he is afebrile. He is on a Friday schedule for dialysis and completed his dialysis this morning. Vascular surgery was consulted to remove tunneled catheter for suspected source of bacteremia. Review of Systems A 14 point review systems was completed all pertinent positives and negatives as stated in the HPI. Past Medical History Past Medical History: Coronary Artery Disease (CAD), Heart Failure, Eye Disorder, GERD/Reflux, Hyperlipidemia, Hypertension, Myocardial Infarction ([place]), Renal Disease, Respiratory Disorder Additional Past Medical History / Comment(s): chronic kidney injury/acute anemia/advanced CAD/valvular disease/severe pulmonary htn/abnormal liver test/hyperlipidemia. Other hx: IDDM type II, pt states informed he had kidney disease in Feb, 2020 then ESRD diagnosed 05/09/20 with hemodialysis M/W/F,neuropathy bilateral feet, L foot ulcer with debridements, L eye blindness d/t diabetic retinopathy, ischemic cardiomyopathy, anasarca/lower leg edema. Last Myocardial Infarction Date:: 03/30/2018 History of Any Multi-Drug Resistant Organisms: None Reported Year Discovered:: 10/31/24 MDRO Source:: blood, sputum Past Surgical History: Heart Catheterization With Stent Additional Past Surgical History / Comment(s): 05/17/20 R subclavian hemodialysis catheter, debridements L foot wound, R eye surgery-pt believes to remove cataract, SEAN fistula Past Anesthesia/Blood Transfusion Reactions: No Reported Reaction Additional Past Anesthesia/Blood Transfusion Reaction / Comm: During 3rd debridement L foot ulcer Date of Last Stent Placement:: 03/31/2018 Past Psychological History: No Psychological Hx Reported Smoking Status: Never smoker Past Alcohol Use History: None Reported Past Drug Use History: None Reported - Past Family History Mother Family Medical History: Diabetes Mellitus, Hyperlipidemia, Hypertension Father Family Medical History: Diabetes Mellitus, Hypertension Medications and Allergies Home Medications Medication Instructions Recorded Confirmed Type Nitroglycerin Sl Tabs [Nitrostat] 0.4 mg SL Q5M PRN 05/09/20 12/29/24 History Aspirin 81 mg PO DAILY #30 tab 06/17/24 12/29/24 Rx carvediloL [Coreg] 50 mg PO BID-W/MEALS 08/28/24 12/29/24 History cloNIDine 0.3 MG/24HR PATCH 1 patch TRANSDERM REDD 08/28/24 12/29/24 History [Catapres-TTS] Calcium Carbonate [Tums] 1,000 mg PO Q4HR PRN tab 11/24/24 12/29/24 Rx Mag Hydrox/Al Hydrox/Simeth 15 ml PO Q6HR PRN ml 11/24/24 12/29/24 Rx [Maalox] Midodrine [ProAmatine] 5 mg PO DAILY PRN #30 tab 11/24/24 12/29/24 Rx Torsemide [Demadex] 40 mg PO DAILY #30 tab 11/24/24 12/29/24 Rx Cyclobenzaprine [Flexeril] 5 mg PO TID PRN 12/16/24 12/29/24 History Isosorbide Dinitrate [Isordil] 10 mg PO TID 12/16/24 12/29/24 History Pantoprazole [Protonix] 40 mg PO DAILY PRN 12/16/24 12/29/24 History Sennosides [Senokot] 8.6 mg PO BID PRN 12/16/24 12/29/24 History hydrALAZINE HCL [Apresoline] 50 mg PO TID 12/16/24 12/29/24 History Methoxy Peg-Epoetin Beta [Mircera] 100 mcg IV Q14D 12/17/24 12/29/24 History Cyanocobalamin [Vitamin B-12] 1,000 mcg PO DAILY #5 tab 12/21/24 12/29/24 Rx Folic Acid 1 mg PO DAILY #30 tab 12/21/24 12/29/24 Rx amLODIPine [Norvasc] 10 mg PO HS 12/28/24 12/29/24 History Allergies Allergy/AdvReac Type Severity Reaction Status Date / Time nickel Allergy Rash/Hives Verified 12/29/24 12:15 Surgical - Exam Vital Signs Temp Pulse Resp BP Pulse Ox 98.3 F 72 18 168/84 100 12/29/24 11:15 12/29/24 11:15 12/29/24 11:15 12/29/24 11:15 12/29/24 11:15 General appearance: The patient is alert, oriented, appears in no acute distres s. HET: Head is normocephalic and atraumatic. Neck: Supple. Chest: Right IJ tunnel catheter in place and chest with sutures intact, no surrounding erythema, drainage or swelling. Heart: Regular. Lungs: Equal expansion, normal respiratory effort. Abdomen: Soft, nontender, nondistended. Extremities: Normal skin color and turgor. Right upper extremity incision well- healed, no tenderness, redness or drainage. Callus on plantar aspect of right foot, without any redness, drainage. Charcot appearing feet Neurological: Alert and oriented x 3. Results - Labs 12/29/24 11:56 12/29/24 11:56 Abnormal Lab Results - Last 24 Hours (Table) 12/29/24 12/29/24 Range/Units 11:56 11:56 RBC 2.75 L (4.30-5.90) m/uL Hgb 8.4 L (13.0-17.5) gm/dL Hct 27.2 L (39.0-53.0) % RDW 18.4 H (11.5-15.5) % Sodium 133 L (137-145) mmol/L Potassium 3.4 L (3.5-5.1) mmol/L Chloride 93 L (98-107) mmol/L Carbon Dioxide 33 H (22-30) mmol/L Creatinine 3.79 H (0.66-1.25) mg/dL Alkaline Phosphatase 198 H (38-126) U/L Albumin 3.4 L (3.5-5.0) g/dL Diabetes panel 12/29/24 Range/Units 11:56 Sodium 133 L (137-145) mmol/L Potassium 3.4 L (3.5-5.1) mmol/L Chloride 93 L (98-107) mmol/L Carbon Dioxide 33 H (22-30) mmol/L BUN 18 (9-20) mg/dL Creatinine 3.79 H (0.66-1.25) mg/dL Glucose 83 (74-99) mg/dL Calcium 8.6 (8.4-10.2) mg/dL AST 18 (17-59) U/L ALT 15 (4-49) U/L Alkaline Phosphatase 198 H (38-126) U/L Total Protein 7.4 (6.3-8.2) g/dL Albumin 3.4 L (3.5-5.0) g/dL Calcium panel 12/29/24 Range/Units 11:56 Calcium 8.6 (8.4-10.2) mg/dL Albumin 3.4 L (3.5-5.0) g/dL Pituitary panel 12/29/24 Range/Units 11:56 Sodium 133 L (137-145) mmol/L Potassium 3.4 L (3.5-5.1) mmol/L Chloride 93 L (98-107) mmol/L Carbon Dioxide 33 H (22-30) mmol/L BUN 18 (9-20) mg/dL Creatinine 3.79 H (0.66-1.25) mg/dL Glucose 83 (74-99) mg/dL Calcium 8.6 (8.4-10.2) mg/dL Adrenal panel 12/29/24 Range/Units 11:56 Sodium 133 L (137-145) mmol/L Potassium 3.4 L (3.5-5.1) mmol/L Chloride 93 L (98-107) mmol/L Carbon Dioxide 33 H (22-30) mmol/L BUN 18 (9-20) mg/dL Creatinine 3.79 H (0.66-1.25) mg/dL Glucose 83 (74-99) mg/dL Calcium 8.6 (8.4-10.2) mg/dL Total Bilirubin 0.9 (0.2-1.3) mg/dL AST 18 (17-59) U/L ALT 15 (4-49) U/L Alkaline Phosphatase 198 H (38-126) U/L Total Protein 7.4 (6.3-8.2) g/dL Albumin 3.4 L (3.5-5.0) g/dL Assessment and Plan Assessment: 1. MRSA bacteremia 2. Right IJ tunnel catheter 3. End-stage renal disease on hemodialysis 4. Recent persistent MRSA bacteremia status post right upper extremity HD graft explantation and antibiotics 5. Coronary artery disease 6. Heart failure Plan: 1. Plan for removal of tunneled catheter today at bedside 2. Continue with recommendations from infectious disease 3. Continue with recommendations from nephrology 4. Rest of medical management per primary medical team 5. Timing for dialysis access to be determined based on clearance of bacteremia Thank you for this consultation, we will follow along. The impression and plan of care has been dictated as directed. Dr. Jaimee Goldberg performed a history and examination of this patient, discussed the same with the dictator. I agree with the dictator's note ,documented as a scribe. Any additional findings or plans will be noted. Patient was seen and examined at the bedside. The tunneled catheter was removed. The area was prepped and draped in usual sterile fashion, preprocedural timeout performed, verbal consent was obtained. Using 1% lidocai ne plain, the area was infiltrated with anesthetic. The cuff was then dissected free of blunt and sharp dissection. The catheter was removed and manual pressure was held at the insertion site for 10 minutes. Hemostasis appeared adequate. A dressing was placed the patient tolerated the procedure well.
--- NOTE | 2024-12-29 23:08 | P.CONS ---
History of Present Illness - Reason for Consult Consult date: 12/29/24 Bacteremia Requesting physician: Filipe Galan - Chief Complaint Positive blood culture x 1 day - History of Present Illness Patient is a 44-year-old -[place] male with a past medical history significant for end-stage renal disease on dialysis he recently did have a prolonged hospital stay with MRSA bacteremia related to the right upper extremity infected graft which was subsequently discontinued patient did have extensive workup including ISIDORO that was negative also have a WBC CT scan that was negative in the left upper extremity CTA did not mention any abscess patient has completed his 6 weeks of antibiotic from his negative blood culture on 11/13/2024 and also have blood culture on 12/16/2024 that was negative patient apparently did have a cellulitis blood culture done after completion of antibiotic therapy which came back positive 2 out of 2 with MRSA for the patient has been admitted to the hospital patient currently denies having any fever or any chills he is breathing comfortably on room air denies any chest pain shortness of breath or cough no nausea no vomiting no abdominal pain no diarrhea patient did have a white count of 6.6 creatinine is 3.79 liver enzymes are normal patient did have blood cultures obtained which are currently pending started on vancomycin infectious disease was consulted for further management of antibiotic therapy Review of Systems Positive point and negatives has been mentioned in the HPI, complete review of systems was performed and all other systems are negative Past Medical History Past Medical History: Coronary Artery Disease (CAD), Heart Failure, Eye Disorder, GERD/Reflux, Hyperlipidemia, Hypertension, Myocardial Infarction ([place]), Renal Disease, Respiratory Disorder Additional Past Medical History / Comment(s): chronic kidney injury/acute anemia/advanced CAD/valvular disease/severe pulmonary htn/abnormal liver test/hyperlipidemia. Other hx: IDDM type II, pt states informed he had kidney disease in Feb, 2020 then ESRD diagnosed 05/09/20 with hemodialysis M/W/F,neuropathy bilateral feet, L foot ulcer with debridements, L eye blindness d/t diabetic retinopathy, ischemic cardiomyopathy, anasarca/lower leg edema. Last Myocardial Infarction Date:: 03/30/2018 History of Any Multi-Drug Resistant Organisms: None Reported Year Discovered:: 10/31/24 MDRO Source:: blood, sputum Past Surgical History: Heart Catheterization With Stent Additional Past Surgical History / Comment(s): 05/17/20 R subclavian hemodialysis catheter, debridements L foot wound, R eye surgery-pt believes to remove cataract, SEAN fistula Past Anesthesia/Blood Transfusion Reactions: No Reported Reaction Additional Past Anesthesia/Blood Transfusion Reaction / Comm: During 3rd debridement L foot ulcer Date of Last Stent Placement:: 03/31/2018 Past Psychological History: No Psychological Hx Reported Smoking Status: Never smoker Past Alcohol Use History: None Reported Past Drug Use History: None Reported - Past Family History Mother Family Medical History: Diabetes Mellitus, Hyperlipidemia, Hypertension Father Family Medical History: Diabetes Mellitus, Hypertension Medications and Allergies Home Medications Medication Instructions Recorded Confirmed Type Nitroglycerin Sl Tabs [Nitrostat] 0.4 mg SL Q5M PRN 05/09/20 12/29/24 History Aspirin 81 mg PO DAILY #30 tab 06/17/24 12/29/24 Rx carvediloL [Coreg] 50 mg PO BID-W/MEALS 08/28/24 12/29/24 History cloNIDine 0.3 MG/24HR PATCH 1 patch TRANSDERM REDD 08/28/24 12/29/24 History [Catapres-TTS] Calcium Carbonate [Tums] 1,000 mg PO Q4HR PRN tab 11/24/24 12/29/24 Rx Mag Hydrox/Al Hydrox/Simeth 15 ml PO Q6HR PRN ml 11/24/24 12/29/24 Rx [Maalox] Midodrine [ProAmatine] 5 mg PO DAILY PRN #30 tab 11/24/24 12/29/24 Rx Torsemide [Demadex] 40 mg PO DAILY #30 tab 11/24/24 12/29/24 Rx Cyclobenzaprine [Flexeril] 5 mg PO TID PRN 12/16/24 12/29/24 History Isosorbide Dinitrate [Isordil] 10 mg PO TID 12/16/24 12/29/24 History Pantoprazole [Protonix] 40 mg PO DAILY PRN 12/16/24 12/29/24 History Sennosides [Senokot] 8.6 mg PO BID PRN 12/16/24 12/29/24 History hydrALAZINE HCL [Apresoline] 50 mg PO TID 12/16/24 12/29/24 History Methoxy Peg-Epoetin Beta [Mircera] 100 mcg IV Q14D 12/17/24 12/29/24 History Cyanocobalamin [Vitamin B-12] 1,000 mcg PO DAILY #5 tab 12/21/24 12/29/24 Rx Folic Acid 1 mg PO DAILY #30 tab 12/21/24 12/29/24 Rx amLODIPine [Norvasc] 10 mg PO HS 12/28/24 12/29/24 History Allergies Allergy/AdvReac Type Severity Reaction Status Date / Time nickel Allergy Rash/Hives Verified 12/29/24 12:15 Physical Exam Vitals: Vital Signs Temp Pulse Resp BP Pulse Ox 12/29/24 18:55 98.2 F 74 18 143/83 97 12/29/24 17:00 75 17 142/88 98 12/29/24 16:00 98.0 F 76 20 138/88 98 12/29/24 12:42 98.2 F 71 18 156/90 98 12/29/24 11:15 98.3 F 72 18 168/84 100 Intake and Output 12/29/24 12/29/24 12/30/24 14:59 22:59 06:59 Other: Weight 77.111 kg GENERAL DESCRIPTION: Middle-age male lying in bed, no distress. No tachypnea or accessory muscle of respiration use. HEENT: Shows Pallor , no scleral icterus. Oral mucous membrane is dry. NECK: Trachea central, no thyromegaly. LUNGS: Unlabored breathing. Clear to auscultation anteriorly. No wheeze or crackle. HEART: S1, S2, regular rate and rhythm. ABDOMEN: Soft, no tenderness , EXTREMITIES: No edema of feet. SKIN: No rash, no masses palpable. NEUROLOGICAL: The patient is awake, alert, mood and affect normal. Results CBC & Chem 7: 12/29/24 11:56 12/29/24 11:56 Labs: Abnormal Lab Results - Last 24 Hours (Table) 12/29/24 12/29/24 Range/Units 11:56 11:56 RBC 2.75 L (4.30-5.90) m/uL Hgb 8.4 L (13.0-17.5) gm/dL Hct 27.2 L (39.0-53.0) % RDW 18.4 H (11.5-15.5) % Sodium 133 L (137-145) mmol/L Potassium 3.4 L (3.5-5.1) mmol/L Chloride 93 L (98-107) mmol/L Carbon Dioxide 33 H (22-30) mmol/L Creatinine 3.79 H (0.66-1.25) mg/dL Alkaline Phosphatase 198 H (38-126) U/L Albumin 3.4 L (3.5-5.0) g/dL Assessment and Plan (1) Bacteremia due to methicillin resistant Staphylococcus aureus Current Visit: Yes Status: Acute Code(s): R78.81 - BACTEREMIA; B95.62 - METHICILLIN RESIS STAPH INFCT [facility] Code(s): [id number] Plan: 1patient being admitted to the hospital after he was noted to have a positive blood culture in outpatient setting 2021 positive for MRSA as per discussion with nephrology in this patient who did have a complicated course with infected right upper extremity graft which was subsequently discontinued and the patient received almost 6 weeks of IV daptomycin from the negative blood culture and also have extensive workup on his last admission including a ISIDORO that was negative for any vegetation and WBC scan was negative, no possible source for bacteremia could be related to the tunneled dialysis catheter has no other obvious focus of infection 2-vascular surgery has been consulted for removal of the dialysis catheter and sending the tip for the culture 3-we will also check a CT of the right upper extremity with contrast to make sure no evidence of any retained hardware on abscess that may be responsible for recurrence of this bacteremia 4-blood culture has been repeated to document clearance of bacteremia 5-patient be treated with vancomycin pharmacy to dose target trough 15 We will follow on clinical condition and cultures to further adjust medication if needed Thank you for this consultation we will follow the patient along with you Dictation was produced using [employer] dictation software. please excuse any grammatical, word or spelling errors. Time with Patient: Greater than 30
[2024-12-30 08:15] LABS: African American GFR (CKD) 14 (>60 ml/min/1.73 sqM); Anion Gap 5 mmol/L; Blood Urea Nitrogen 26 mg/dL (9-20); Calcium 8.8 mg/dL (8.4-10.2); Carbon Dioxide 33 mmol/L (22-30); Chloride 93 mmol/L (98-107); Glucose 123 mg/dL (74-99); Non-African American GFR(CKD) 12 (>60 ml/min/1.73 sqM); Potassium 4.1 mmol/L (3.5-5.1); Sodium 131 mmol/L (137-145)
[2024-12-30 08:20] LABS: Vancomycin,Random 19.2 ug/mL
--- NOTE | 2024-12-30 09:20 | P.PN ---
Subjective Progress Note Date: 12/30/24 Principal diagnosis: Bacteremia Patient is seen and examined today as a follow-up. Yesterday his right IJ tunnel catheter was removed at the bedside. He remains afebrile. Denies any pain at the site, no bleeding, redness or drainage. Denies any shortness of breath or chest pain. Continues on IV antibiotics per infectious disease. Objective - Vital Signs Vital signs: Vital Signs Temp 98.2 F 12/29/24 18:55 Pulse 72 12/30/24 04:00 Resp 18 12/30/24 04:00 BP 159/101 12/30/24 04:00 Pulse Ox 99 12/30/24 04:00 FiO2 Intake & Output 12/29/24 12/30/24 12/30/24 18:59 06:59 18:59 Weight 77.111 kg 77.111 kg - Exam General appearance: The patient is alert, oriented, appears in no acute distress. HET: Head is normocephalic and atraumatic. Neck: Supple. Chest: Right upper chest wall previous tunnel catheter site without any bleedin g, drainage or redness. No swelling. Heart: Regular. Lungs: Equal expansion, normal respiratory effort. Abdomen: Soft, nondistended. Extremities: Normal skin color and turgor. Neurological: Alert and oriented. - Labs CBC & Chem 7: 12/29/24 11:56 12/30/24 07:33 Labs: Abnormal Lab Results - Last 24 Hours (Table) 12/29/24 12/29/24 12/30/24 Range/Units 11:56 11:56 07:33 RBC 2.75 L (4.30-5.90) m/uL Hgb 8.4 L (13.0-17.5) gm/dL Hct 27.2 L (39.0-53.0) % RDW 18.4 H (11.5-15.5) % Sodium 133 L 131 L (137-145) mmol/L Potassium 3.4 L (3.5-5.1) mmol/L Chloride 93 L 93 L (98-107) mmol/L Carbon Dioxide 33 H 33 H (22-30) mmol/L BUN 26 H (9-20) mg/dL Creatinine 3.79 H 5.40 H (0.66-1.25) mg/dL Glucose 123 H (74-99) mg/dL Alkaline Phosphatase 198 H (38-126) U/L Albumin 3.4 L (3.5-5.0) g/dL Assessment and Plan Assessment: 1. MRSA bacteremia 2. Right IJ tunnel catheter status post removal 3. End-stage renal disease on hemodialysis 4. Recent persistent MRSA bacteremia status post right upper extremity HD graft explantation and antibiotics 5. Coronary artery disease 6. Heart failure Plan: 1. Patient is post tunnel catheter removal 2. Continue with recommendations from infectious disease 3. Continue with recommendations from nephrology 4. Rest of medical management per primary medical team 5. Timing for dialysis access to be determined based on clearance of bacteremia Thank you for this consultation, we will follow along. The impression and plan of care has been dictated as directed. Dr. Larios I performed a history and examination of this patient, discussed the same with the dictator. I agree with the dictator's note ,documented as a scribe. Any additional findings or plans will be noted.
[2024-12-30] MEDS ORDERED: SENNOSIDES 8.6 MG TAB PO PRN (09:47)
[2024-12-30] MEDS ORDERED: MAG HYDROX/AL HYDROX/SIMETH 30 ML CUP PO PRN (09:47)
[2024-12-30] MEDS ORDERED: NITROGLYCERIN SL TABS 0.4 MG TAB SUBLINGUAL PRN (09:47)
[2024-12-30] MEDS ORDERED: CALCIUM CARBONATE 500 MG CHEWABLE PO PRN (09:47)
--- NOTE | 2024-12-30 10:16 | P.PN ---
Subjective Patient is seen in follow-up for end-stage renal disease. Dialysis catheter removed yesterday. Last dialysis was December 29, 2024. No active complaints. Vital signs are stable. General: No acute distress. HEENT: Head exam is unremarkable. LUNGS: No audible rhonchi or wheezes. HEART: Rate and Rhythm are regular. ABDOMEN: A nontender. EXTREMITITES: No edema. Objective - Vital Signs Vital signs: Vital Signs Temp 98 F 12/30/24 09:15 Pulse 71 12/30/24 09:15 Resp 20 12/30/24 09:15 BP 147/91 12/30/24 09:15 Pulse Ox 97 12/30/24 09:15 FiO2 Intake & Output 12/29/24 12/30/24 12/30/24 18:59 06:59 18:59 Weight 77.111 kg 77.111 kg - Labs CBC & Chem 7: 12/29/24 11:56 12/30/24 07:33 Labs: Abnormal Lab Results - Last 24 Hours (Table) 12/29/24 12/29/24 12/30/24 Range/Units 11:56 11:56 07:33 RBC 2.75 L (4.30-5.90) m/uL Hgb 8.4 L (13.0-17.5) gm/dL Hct 27.2 L (39.0-53.0) % RDW 18.4 H (11.5-15.5) % Sodium 133 L 131 L (137-145) mmol/L Potassium 3.4 L (3.5-5.1) mmol/L Chloride 93 L 93 L (98-107) mmol/L Carbon Dioxide 33 H 33 H (22-30) mmol/L BUN 26 H (9-20) mg/dL Creatinine 3.79 H 5.40 H (0.66-1.25) mg/dL Glucose 123 H (74-99) mg/dL Alkaline Phosphatase 198 H (38-126) U/L Albumin 3.4 L (3.5-5.0) g/dL Assessment and Plan Plan: Assessment: 1. End-stage renal disease maintained on hemodialysis on Friday schedule via permacath. 2. MRSA bacteremia. AV graft excised earlier this year due to bacteremia. Now concerning that permacath may be the source for infection. 3. Anemia of chronic kidney disease. 4. Hypertension with chronic kidney disease. Plan: Last dialysis December 29, 2024. Check labs daily. Continue to assess need for dialysis on daily basis. Follow-up cultures. Add Aradaviep. Okay to proceed with CT scan with IV contrast.
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
[2024-12-30] MEDS: VANCOMYCIN 1,250 MG in SODIUM CHLORIDE 0.9% 250 ML IVPB ONE (11:02)
[2024-12-30] MEDS: [UNRECOGNIZED DRUG - OTHER] IV SCH (11:07)
[2024-12-30] MEDS: CYANOCOBALAMIN 500 MCG TAB PO SCH (11:15)
[2024-12-30] MEDS: PANTOPRAZOLE 40 MG TABLET PO SCH (11:15)
[2024-12-30] MEDS: carvediloL 12.5 MG TAB PO SCH (11:15)
[2024-12-30] MEDS: ISOSORBIDE DINITRATE 10 MG TAB PO SCH (11:16)
[2024-12-30] MEDS: FOLIC ACID 1 MG TAB PO SCH (11:16)
[2024-12-30] MEDS: hydrALAZINE HCL 50 MG TAB PO SCH (11:16)
[2024-12-30] MEDS: TORSEMIDE 20 MG TAB PO SCH (11:16)
--- NOTE | 2024-12-30 11:37 | P.CRDCN ---
History of Present Illness Consult date: 12/30/24 Reason for Consult (text): CAD History of present illness: This is a 44-year-old male patient of Dr. Martines with past medical history of end-stage renal disease on hemodialysis, hypertension, history of cardiac arrest secondary to hypoxic event and also cardiac arrest on induction of anesthesia, recent treatment for bacteremia, dilated cardiomyopathy with EF 40%, chronic systolic heart failure, tricuspid regurgitation, diabetes reversed with diet. We have been asked to evaluate patient for CAD. Patient has history of bacteremia with previous workup including ISIDORO that was negative for vegetation. Patient has been on IV antibiotics and managed by Dr. Guillen. He apparently completed a 6-week course of IV antibiotics but patient states that the dialysis center has been checking blood cultures which are now positive with MRSA and th us he was admitted to the hospital and started on vancomycin. Patient states that his right IJ tunnel catheter was removed and on Friday he is expected to have access replaced. Vascular surgery is following for this. Patient currently denies any chest pain, no shortness of breath, no lightheadedness or dizziness. Blood pressure 147/91, heart rate in the 70s, pulse ox 97% on room air. Patient is seen today in the emergency center waiting for a bed on the cardiac stepdown unit. -EKG: Sinus rhythm with nonspecific ST-T wave changes. -Chest x-ray: -Laboratory studies: WBC 6.6, hemoglobin 8.4, sodium 131, potassium 4.1, BUN 26 and creatinine 5.4. -Home cardiac medications: Amlodipine 10 mg at bedtime, aspirin 81 mg daily, Coreg 50 mg twice daily, clonidine patch every Friday 0.3 mg, hydralazine 50 mg 3 times daily, Isordil 10 mg 3 times daily, midodrine as needed, Nitrostat as needed, Demadex 40 mg daily. -Cardiac catheterization performed on 12/28/[address] Cole: 100% mid LAD in-patrizia nt stenosis appears to be DIRECTOR GENERAL, moderate to severe disease in diagonal 1, OM1, OM 2, OM 3, PDA and PL branches, moderate diffuse nonobstructive disease in the RCA. Moderate to severe mitral regurgitation. Mild pulmonary hypertension. Recommendations for viability testing before performing in-stent DIRECTOR GENERAL of LAD. Moderate to severe to diffuse disease and branch vessel does not seem amenable to intervention. Optimize heart failure medications and recommend Entresto and uptitrating beta-jamarcus if tolerated. -Echocardiogram performed 10/26/2024 reveals EF of 30 to 35%, moderate concentric LVH, atypical septal motion, anterior septal wall hypokinesia, RVSP 65, severe TR, moderate pulmonary regurgitation, mild mitral regurgitation. -ISIDORO performed 10/28/2024 revealed no evidence of infective endocarditis. EF 40 to 45%, mild concentric LVH. Moderate pulmonary hypertension with RVSP 50 mmHg. Severe RA dilatation and mild LA dilatation. Review Of Systems: At the time of my exam: CONSTITUTIONAL: Denies fever or chills. HEENT: Denies blurred vision, vision changes, or eye pain. Denies hemoptysis CARDIOVASCULAR: Denies chest pain. Denies orthopnea. Denies PND. Denies palpitations RESPIRATORY: Denies shortness of breath. GASTROINTESTINAL: Denies abdominal pain. Denies nausea or vomiting. HEMATOLOGIC: Denies bleeding disorders. GENITOURINARY: Denies any blood in urine. SKIN: Denies puritis. Denies rash. Physical examination: Gen: This is a 44-year-old black male in no acute distress VS: reviewed HEENT: Head is atraumatic, normocephalic. Pupils equal, round. Sclerae is anicteric. NECK: Supple. No JVD. LUNGS: Clear to auscultation. No wheezes or rhonchi. No intercostal retractio ns. HEART: Regular rate and rhythm. Systolic murmur. ABDOMEN: Soft No tenderness. EXTREMITIES: No pedal edema. No calf tenderness. NEUROLOGICAL: Patient is awake, alert and oriented x3. Assessment: Coronary artery disease with cardiac catheterization performed 12/28 and plan for viability testing before performing in-stent DIRECTOR GENERAL of the LAD Ischemic versus dilated cardiomyopathy with EF of 40% Chronic systolic heart failure MRSA bacteremia status post removal of right IJ tunnel catheter as possible source End-stage renal disease on hemodialysis Hypertension History of previous cardiac arrest secondary to hypoxia and second episode in the setting of anesthesia induction Plan: Resume patient's home cardiac medications Further recommendations to follow based upon clinical course Thank you kindly for this consultation. Nurse practitioner note has been reviewed, I agree with documented findings and plan of care. Patient was seen and examined. Past Medical History Past Medical History: Coronary Artery Disease (CAD), Heart Failure, Eye Disorder, GERD/Reflux, Hyperlipidemia, Hypertension, Myocardial Infarction ([place]), Renal Disease, Respiratory Disorder Additional Past Medical History / Comment(s): chronic kidney injury/acute anemia/advanced CAD/valvular disease/severe pulmonary htn/abnormal liver test/hyperlipidemia. Other hx: IDDM type II, pt states informed he had kidney disease in Feb, 2020 then ESRD diagnosed 05/09/20 with hemodialysis M/W/F,neuropathy bilateral feet, L foot ulcer with debridements, L eye blindness d/t diabetic retinopathy, ischemic cardiomyopathy, anasarca/lower leg edema. Last Myocardial Infarction Date:: 03/30/2018 History of Any Multi-Drug Resistant Organisms: None Reported Date of last positivie culture/infection: 10/31/24 MDRO Source:: blood, sputum Past Surgical History: Heart Catheterization With Stent Additional Past Surgical History / Comment(s): 05/17/20 R subclavian hemodialysis catheter, debridements L foot wound, R eye surgery-pt believes to remove cataract, SEAN fistula Past Anesthesia/Blood Transfusion Reactions: No Reported Reaction Additional Past Anesthesia/Blood Transfusion Reaction / Comment(s): During 3rd debridement L foot ulcer Date of Last Stent Placement:: 03/31/2018 Past Psychological History: No Psychological Hx Reported Additional Psychological History / Comment(s): Pt recently moved up from [place] to live with his mother. He is applying for disability and having difficulty with the forms. Pt's car recently has broken down and has not been able to get it fixed, missed dialysis d/t ride problem and unable to get to [facility] for dialysis. Mother states pt can use bus to get to local appts. Smoking Status: Never smoker Past Alcohol Use History: None Reported Past Drug Use History: None Reported - Past Family History Mother Family Medical History: Diabetes Mellitus, Hyperlipidemia, Hypertension Father Family Medical History: Diabetes Mellitus, Hypertension Medications and Allergies Home Medications Medication Instructions Recorded Confirmed Type Nitroglycerin Sl Tabs [Nitrostat] 0.4 mg SL Q5M PRN 05/09/20 12/29/24 History Aspirin 81 mg PO DAILY #30 tab 06/17/24 12/29/24 Rx carvediloL [Coreg] 50 mg PO BID-W/MEALS 08/28/24 12/29/24 History cloNIDine 0.3 MG/24HR PATCH 1 patch TRANSDERM REDD 08/28/24 12/29/24 History [Catapres-TTS] Calcium Carbonate [Tums] 1,000 mg PO Q4HR PRN tab 11/24/24 12/29/24 Rx Mag Hydrox/Al Hydrox/Simeth 15 ml PO Q6HR PRN ml 11/24/24 12/29/24 Rx [Maalox] Midodrine [ProAmatine] 5 mg PO DAILY PRN #30 tab 11/24/24 12/29/24 Rx Torsemide [Demadex] 40 mg PO DAILY #30 tab 11/24/24 12/29/24 Rx Cyclobenzaprine [Flexeril] 5 mg PO TID PRN 12/16/24 12/29/24 History Isosorbide Dinitrate [Isordil] 10 mg PO TID 12/16/24 12/29/24 History Pantoprazole [Protonix] 40 mg PO DAILY PRN 12/16/24 12/29/24 History Sennosides [Senokot] 8.6 mg PO BID PRN 12/16/24 12/29/24 History hydrALAZINE HCL [Apresoline] 50 mg PO TID 12/16/24 12/29/24 History Methoxy Peg-Epoetin Beta [Mircera] 100 mcg IV Q14D 12/17/24 12/29/24 History Cyanocobalamin [Vitamin B-12] 1,000 mcg PO DAILY #5 tab 12/21/24 12/29/24 Rx Folic Acid 1 mg PO DAILY #30 tab 12/21/24 12/29/24 Rx amLODIPine [Norvasc] 10 mg PO HS 12/28/24 12/29/24 History Allergies Allergy/AdvReac Type Severity Reaction Status Date / Time nickel Allergy Rash/Hives Verified 12/29/24 12:15 Physical Exam Vitals: Vital Signs Temp Pulse Resp BP Pulse Ox 12/30/24 04:00 72 18 159/101 99 12/30/24 01:00 73 17 160/102 98 12/29/24 18:55 98.2 F 74 18 143/83 97 12/29/24 17:00 75 17 142/88 98 12/29/24 16:00 98.0 F 76 20 138/88 98 12/29/24 12:42 98.2 F 71 18 156/90 98 12/29/24 11:15 98.3 F 72 18 168/84 100 Intake and Output 12/29/24 12/30/24 12/30/24 22:59 06:59 14:59 Other: Weight 77.111 kg Results 12/29/24 11:56 12/30/24 07:33 Cardiac Enzymes 12/29/24 Range/Units 11:56 AST 18 (17-59) U/L CBC 12/29/24 Range/Units 11:56 WBC 6.6 (3.8-10.6) k/uL RBC 2.75 L (4.30-5.90) m/uL Hgb 8.4 L (13.0-17.5) gm/dL Hct 27.2 L (39.0-53.0) % Plt Count 165 (150-450) k/uL Comprehensive Metabolic Panel 12/29/24 12/30/24 Range/Units 11:56 07:33 Sodium 133 L 131 L (137-145) mmol/L Potassium 3.4 L 4.1 (3.5-5.1) mmol/L Chloride 93 L 93 L (98-107) mmol/L Carbon Dioxide 33 H 33 H (22-30) mmol/L BUN 18 26 H (9-20) mg/dL Creatinine 3.79 H 5.40 H (0.66-1.25) mg/dL Glucose 83 123 H (74-99) mg/dL Calcium 8.6 8.8 (8.4-10.2) mg/dL AST 18 (17-59) U/L ALT 15 (4-49) U/L Alkaline Phosphatase 198 H (38-126) U/L Total Protein 7.4 (6.3-8.2) g/dL Albumin 3.4 L (3.5-5.0) g/dL Current Medications Generic Name Dose Route Start Last Admin Trade Name Freq PRN Reason Stop Dose Admin Miscellaneous Information 1 each 12/29/24 11:38 Vancomycin Iv Per Pharmacy 1 Each Misc MISCELLANE DIRECTED PRN Per Protocol Intake and Output 12/29/24 12/30/24 12/30/24 22:59 06:59 14:59 Other: Weight 77.111 kg Patient Weight 12/31/24 06:59 Weight 77.111 kg 12/29/24 11:56 12/30/24 07:33
[2024-12-30] MEDS: DARBEPOETIN ALFA 40 MCG/0.4 ML SYRINGE SQ SCH (11:46)
[2024-12-30] MEDS: CYCLOBENZAPRINE 5 MG TAB PO PRN (12:32)
--- NOTE | 2024-12-30 15:15 | P.PN ---
Subjective Progress Note Date: 12/30/24 Principal diagnosis: Reason for follow-up is MRSA bacteremia Patient is a 44-year-old -[place] male with a past medical history significant for end-stage renal disease on dialysis he recently did have a prolonged hospital stay with MRSA bacteremia related to the right upper extremity infected graft which was subsequently discontinued and complete 6-week course of IV antibiotics presented back to the hospital with bacteremia concern for possible catheter related which has been discontinued. On today's evaluation that is 12/30/2024,the patient remains to be afebrile, patient is on room air not requiring supplemental oxygen and denies any shortness of breath no chest pain or cough.Patient denies having any nausea or vomiting, no abdominal pain and no diarrhea has been reported patient did have a creatinine of 5.40 Vanco x 19.2 cultures currently pending Objective - Vital Signs Vital signs: Vital Signs Temp 98 F 12/30/24 09:15 Pulse 71 12/30/24 09:15 Resp 20 12/30/24 09:15 BP 147/91 12/30/24 09:15 Pulse Ox 97 12/30/24 09:15 FiO2 Intake & Output 12/29/24 12/30/24 12/30/24 18:59 06:59 18:59 Weight 77.111 kg 77.111 kg - Exam GENERAL DESCRIPTION: Middle-age male lying in bed in no distress RESPIRATORY SYSTEM: Unlabored breathing , decreased breath sounds at bases HEART: S1 S2 regular rate and rhythm , ABDOMEN: Soft , no tenderness EXTREMITIES: No edema feet - Labs CBC & Chem 7: 12/29/24 11:56 12/30/24 07:33 Labs: Abnormal Lab Results - Last 24 Hours (Table) 12/29/24 12/29/24 12/30/24 Range/Units 11:56 11:56 07:33 RBC 2.75 L (4.30-5.90) m/uL Hgb 8.4 L (13.0-17.5) gm/dL Hct 27.2 L (39.0-53.0) % RDW 18.4 H (11.5-15.5) % Sodium 133 L 131 L (137-145) mmol/L Potassium 3.4 L (3.5-5.1) mmol/L Chloride 93 L 93 L (98-107) mmol/L Carbon Dioxide 33 H 33 H (22-30) mmol/L BUN 26 H (9-20) mg/dL Creatinine 3.79 H 5.40 H (0.66-1.25) mg/dL Glucose 123 H (74-99) mg/dL Alkaline Phosphatase 198 H (38-126) U/L Albumin 3.4 L (3.5-5.0) g/dL Assessment and Plan (1) Bacteremia due to methicillin resistant Staphylococcus aureus Current Visit: Yes Status: Acute Code(s): R78.81 - BACTEREMIA; B95.62 - METHICILLIN RESIS STAPH INFCT CAUSING DISEASES [facility] SNOMED Code(s): 69704729536408707 Plan: 1patient being admitted to the hospital after he was noted to have a positive blood culture in outpatient setting 2021 positive for MRSA as per discussion with nephrology in this patient who did have a complicated course with infected right upper extremity graft which was subsequently discontinued and the patient received almost 6 weeks of IV daptomycin from the negative blood culture and also have extensive workup on his last admission including a ISIDORO that was negative for any vegetation and WBC scan was negative, no possible source for bacteremia could be related to the tunneled dialysis catheter has no other obvious focus of infection 2-vascular surgery seen the patient catheter has been discontinued 3-still waiting for CT of the right upper extremity with contrast to make sure no evidence of any retained hardware on abscess that may be responsible for recurrence of this bacteremia, nephrology cleared the patient for IV contrast for CT 4-patient will be treated with vancomycin pharmacy to dose target trough 15 while waiting for the workup to be completed Multiple question concern answered in layman term Dictation was produced using [employer] dictation software. please excuse any grammatical, word or spelling errors. Time with Patient: Greater than 30
[2024-12-30] MEDS: HEPARIN SODIUM,PORCINE 5,000 UNIT/ML 1 ML VIAL SQ SCH (16:21)
[2024-12-30] MEDS: MIDODRINE 5 MG TAB PO PRN (16:21)
--- NOTE | 2024-12-30 20:20 | CT ---
EXAMINATION TYPE: CT upper extremity RT w con DATE OF EXAM: 12/30/2024 COMPARISON: Prior CT right upper extremity November 09, 2024. HISTORY: MRSA bacteremia, history of infected graft. CT DLP: 583.2 mGycm Automated exposure control for dose reduction was used. CONTRAST: Performed with IV Contrast, patient injected with 80 ml mL of Isovue 300. FINDINGS: Severe diffuse subcutaneous edema remains present. Entire elbow is not included making evaluation sli ghtly suboptimal. There is metallic density at distal humeral level likely at the distal graft anasto mosis with streak artifact on axial image 178. Similar findings seen near the shoulder anteriorly axi al image 244 likely a proximal anastomosis. Patency of graft is present. No well-formed thick walled fluid collection or abscess is seen. No suspicious bony destruction is seen. There are at least small right greater than left bilateral pleural effusions partially imaged. IMPRESSION: PERSISTENT MODERATE TO SEVERE DIFFUSE SUBCUTANEOUS EDEMA FROM THE SHOULDER TO ROUGHLY THE ELBOW LEVEL . NO FOCAL THICK WALLED ABSCESS IDENTIFIED. [facility], , 12/30/2024 8:17 PM
[2024-12-30] MEDS: amLODIPine 10 MG TAB PO SCH (20:34)
[2024-12-31 05:57] LABS: Glucose,Whole Blood 154 mg/dL (70-110)
[2024-12-31 07:42] LABS: African American GFR (CKD) 10 (>60 ml/min/1.73 sqM); Anion Gap 8 mmol/L; Blood Urea Nitrogen 33 mg/dL (9-20); Carbon Dioxide 31 mmol/L (22-30); Chloride 94 mmol/L (98-107); Glucose 133 mg/dL (74-99); Non-African American GFR(CKD) 9 (>60 ml/min/1.73 sqM); Potassium 4.5 mmol/L (3.5-5.1); Sodium 133 mmol/L (137-145)
[2024-12-31 07:47] LABS: Vancomycin,Random 28.7 ug/mL
[2024-12-31] MEDS: hydrALAZINE HCL 50 MG TAB PO SCH (09:37)
[2024-12-31] MEDS: ASPIRIN 81 MG PO SCH (09:37)
--- NOTE | 2024-12-31 10:01 | P.PN ---
Subjective Patient is seen in follow-up for end-stage renal disease. Dialysis catheter removed December 29, 2024. Last dialysis was December 29, 2024. No active c omplaints. Vital signs are stable. General: No acute distress. HEENT: Head exam is unremarkable. LUNGS: No audible rhonchi or wheezes. HEART: Rate and Rhythm are regular. ABDOMEN: A nontender. EXTREMITITES: No edema. Objective - Vital Signs Vital signs: Vital Signs Temp 97.5 F L 12/31/24 09:32 Pulse 68 12/31/24 09:32 Resp 15 12/31/24 09:32 BP 175/96 12/31/24 09:32 Pulse Ox 94 L 12/31/24 09:32 FiO2 Intake & Output 12/30/24 12/31/24 12/31/24 18:59 06:59 18:59 Intake Total 540 240 Balance 540 240 Weight 77.111 kg Intake: Oral 540 240 Other: Voiding Method Toilet Urinal - Labs CBC & Chem 7: 12/29/24 11:56 12/31/24 07:14 Labs: Abnormal Lab Results - Last 24 Hours (Table) 12/31/24 12/31/24 Range/Units 05:56 07:14 Sodium 133 L (137-145) mmol/L Chloride 94 L (98-107) mmol/L Carbon Dioxide 31 H (22-30) mmol/L BUN 33 H (9-20) mg/dL Creatinine 6.87 H (0.66-1.25) mg/dL Glucose 133 H (74-99) mg/dL POC Glucose (mg/dL) 154 H (70-110) mg/dL Microbiology - Last 24 Hours (Table) 12/29/24 12:00 Blood Culture Gram Stain - Preliminary Blood Blood Culture - Preliminary 12/29/24 11:56 Blood Culture Gram Stain - Preliminary Blood Blood Culture - Preliminary Molecular ID Assessment and Plan Plan: Assessment: 1. End-stage renal disease maintained on hemodialysis on Friday schedule via permacath. 2. MRSA bacteremia. AV graft excised earlier this year due to bacteremia. Now concerning that permacath may be the source for infection. Blood cultures positive this admission as well. No abscess noted on CT of the upper extremity. 3. Anemia of chronic kidney disease. On Ara. 4. Hypertension with chronic kidney disease. Plan: Last dialysis December 29, 2024. Check labs daily. Continue to assess need for dialysis on daily basis. Follow-up cultures. Add as needed hydralazine.
--- NOTE | 2024-12-31 10:26 | P.PN ---
Subjective Progress Note Date: 12/31/24 Principal diagnosis: Bacteremia Patient seen and examined today as a follow-up. He is up in the bedside chair sitting up. He states he is feeling well. No fevers chills or bodyaches. He has been afebrile. Continues with IV antibiotics. Preliminary blood cultures are positive. He denies any shortness of breath, chest pain, abdominal pain, nausea or vomiting. Sodium 133 potassium 4.5 BUN 33 creatinine 6.8. Right upper extremity CAT scan shows no abscess or fluid collection. Objective - Vital Signs Vital signs: Vital Signs Temp 97.9 F 12/30/24 22:30 Pulse 73 12/31/24 05:45 Resp 16 12/31/24 05:45 BP 186/107 12/31/24 05:45 Pulse Ox 94 L 12/31/24 05:45 FiO2 Intake & Output 12/30/24 12/31/24 12/31/24 18:59 06:59 18:59 Intake Total 540 240 Balance 540 240 Weight 77.111 kg Intake: Oral 540 240 Other: Voiding Method Toilet Urinal - Exam General appearance: The patient is alert, oriented, appears in no acute distress. HET: Head is normocephalic and atraumatic. Neck: Supple. Chest: Right upper chest wall previous tunnel catheter site without any bleeding, drainage or redness. No swelling. Heart: Regular. Lungs: Equal expansion, normal respiratory effort. Abdomen: Soft, nondistended. Extremities: Normal skin color and turgor. Right upper extremity surgical incision healed. No swelling, erythema, tenderness or drainage. Palpable radial pulse. Neurological: Alert and oriented. - Labs CBC & Chem 7: 12/29/24 11:56 12/31/24 07:14 Labs: Abnormal Lab Results - Last 24 Hours (Table) 12/31/24 12/31/24 Range/Units 05:56 07:14 Sodium 133 L (137-145) mmol/L Chloride 94 L (98-107) mmol/L Carbon Dioxide 31 H (22-30) mmol/L BUN 33 H (9-20) mg/dL Creatinine 6.87 H (0.66-1.25) mg/dL Glucose 133 H (74-99) mg/dL POC Glucose (mg/dL) 154 H (70-110) mg/dL Microbiology - Last 24 Hours (Table) 12/29/24 12:00 Blood Culture Gram Stain - Preliminary Blood Blood Culture - Preliminary 12/29/24 11:56 Blood Culture Gram Stain - Preliminary Blood Blood Culture - Preliminary Molecular ID Assessment and Plan Assessment: 1. MRSA bacteremia 2. Right IJ tunnel catheter status post removal 3. End-stage renal disease on hemodialysis 4. Recent persistent MRSA bacteremia status post right upper extremity HD graft explantation and antibiotics 5. Coronary artery disease 6. Heart failure Plan: 1. Patient is post tunnel catheter removal 2. Continue with recommendations from infectious disease 3. Continue with recommendations from nephrology 4. Rest of medical management per primary medical team 5. Timing for dialysis access to be determined based on clearance of bacteremia Thank you for this consultation, we will follow along. The impression and plan of care has been dictated as directed. Dr. Moore I performed a history and examination of this patient, discussed the same with the dictator. I agree with the dictator's note ,documented as a scribe. Any additional findings or plans will be noted.
[2024-12-31 11:21] LABS: Glucose,Whole Blood 179 mg/dL (70-110)
--- NOTE | 2024-12-31 12:25 | P.PN ---
Subjective Progress Note Date: 12/31/24 Reason for Consult (text): CAD History of present illness: This is a 44-year-old male patient of Dr. Martines with past medical history of end-stage renal disease on hemodialysis, hypertension, history of cardiac arrest secondary to hypoxic event and also cardiac arrest on induction of anesthesia, recent treatment for bacteremia, dilated cardiomyopathy with EF 40%, chronic systolic heart failure, tricuspid regurgitation, diabetes reversed with diet. We have been asked to evaluate patient for CAD. Patient has history of bacteremia with previous workup including ISIDORO that was negative for vegetation. Patient has been on IV antibiotics and managed by Dr. Guillen. He apparently completed a 6-week course of IV antibiotics but patient states that the dialysis center has been checking blood cultures which are now positive with MRSA and thus he was admitted to the hospital and started on vancomycin. Patient states that his right IJ tunnel catheter was removed and on Friday he is expected to have access replaced. Vascular surgery is following for this. Patient currently denies any chest pain, no shortness of breath, no lightheadedness or dizziness. Blood pressure 147/91, heart rate in the 70s, pulse ox 97% on room air. Patient is seen today in the emergency center waiting for a bed on the cardiac stepdown unit. -EKG: Sinus rhythm with nonspecific ST-T wave changes. -Chest x-ray: -Laboratory studies: WBC 6.6, hemoglobin 8.4, sodium 131, potassium 4.1, BUN 26 and creatinine 5.4. -Home cardiac medications: Amlodipine 10 mg at bedtime, aspirin 81 mg daily, Coreg 50 mg twice daily, clonidine patch every Friday 0.3 mg, hydralazine 50 mg 3 times daily, Isordil 10 mg 3 times daily, midodrine as needed, Nitrostat as needed, Demadex 40 mg daily. -Cardiac catheterization performed on 12/28/[address] Cole: 100% mid LAD in- stent stenosis appears to be CARCASS WASHER, moderate to severe disease in diagonal 1, OM1, OM 2, OM 3, PDA and PL branches, moderate diffuse nonobstructive disease in the RCA. Moderate to severe mitral regurgitation. Mild pulmonary hypertension. Recommendations for viability testing before performing in-stent CARCASS WASHER of LAD. Moderate to severe to diffuse disease and branch vessel does not seem amenable to intervention. Optimize heart failure medications and recommend Entresto and uptitrating beta-jamarcus if tolerated. -Echocardiogram performed 10/26/2024 reveals EF of 30 to 35%, moderate concentric LVH, atypical septal motion, anterior septal wall hypokinesia, RVSP 65, severe TR, moderate pulmonary regurgitation, mild mitral regurgitation. -ISIDORO performed 10/28/2024 revealed no evidence of infective endocarditis. EF 40 to 45%, mild concentric LVH. Moderate pulmonary hypertension with RVSP 50 mmHg. Severe RA dilatation and mild LA dilatation. 12/31 Patient seen and examined on the cardiac stepdown unit. Patient's blood pressure readings have been elevated. 175/96, heart rate 68, pulse ox 94% on room air. Repeat blood work reveals sodium 133, potassium 4.5, BUN 33 creatinine 6.87. Physical examination: Gen: This is a 44-year-old black male in no acute distress VS: reviewed HEENT: Head is atraumatic, normocephalic. Pupils equal, round. Sclerae is anicteric. NECK: Supple. No JVD. LUNGS: Clear to auscultation. No wheezes or rhonchi. No intercostal retractions. HEART: Regular rate and rhythm. Systolic murmur at the apex. ABDOMEN: Soft No tenderness. EXTREMITIES: No pedal edema. No calf tenderness. NEUROLOGICAL: Patient is awake, alert and oriented x3. Assessment: Coronary artery disease with cardiac catheterization performed 12/28 and plan for viability testing before performing in-stent CARCASS WASHER of the LAD Ischemic versus dilated cardiomyopathy with EF of 40% Chronic systolic heart failure MRSA bacteremia status post removal of right IJ tunnel catheter as possible source End-stage renal disease on hemodialysis Hypertension History of previous cardiac arrest secondary to hypoxia and second episode in the setting of anesthesia induction Plan: Resume patient's home cardiac medications Increase hydralazine to 100 mg 3 times daily Further recommendations to follow based upon clinical course Nurse practitioner note has been reviewed, I agree with documented findings and plan of care. Patient was seen and examined. Objective - Vital Signs Vital signs: Vital Signs Temp 97.9 F 12/30/24 22:30 Pulse 73 12/31/24 05:45 Resp 16 12/31/24 05:45 BP 186/107 12/31/24 05:45 Pulse Ox 94 L 12/31/24 05:45 FiO2 Intake & Output 12/30/24 12/31/24 12/31/24 18:59 06:59 18:59 Intake Total 540 240 Balance 540 240 Weight 77.111 kg Intake: Oral 540 240 Other: Voiding Method Toilet Urinal - Labs CBC & Chem 7: 12/29/24 11:56 12/31/24 07:14 Labs: Abnormal Lab Results - Last 24 Hours (Table) 12/31/24 12/31/24 Range/Units 05:56 07:14 Sodium 133 L (137-145) mmol/L Chloride 94 L (98-107) mmol/L Carbon Dioxide 31 H (22-30) mmol/L BUN 33 H (9-20) mg/dL Creatinine 6.87 H (0.66-1.25) mg/dL Glucose 133 H (74-99) mg/dL POC Glucose (mg/dL) 154 H (70-110) mg/dL Microbiology - Last 24 Hours (Table) 12/29/24 12:00 Blood Culture Gram Stain - Preliminary Blood Blood Culture - Preliminary 12/29/24 11:56 Blood Culture Gram Stain - Preliminary Blood Blood Culture - Preliminary Molecular ID
--- NOTE | 2024-12-31 15:38 | P.PN ---
Subjective Progress Note Date: 12/31/24 Principal diagnosis: Reason for follow-up is MRSA bacteremia Patient is a 44-year-old -[place] male with a past medical history significant for end-stage renal disease on dialysis he recently did have a prolonged hospital stay with MRSA bacteremia related to the right upper extremity infected graft which was subsequently discontinued and complete 6-week course of IV antibiotics presented back to the hospital with bacteremia concern for possible catheter related which has been discontinued. On today's evaluation that is 12/31/2024, the patient continues to be afebrile, the patient is on room air and breathing comfortably, the Pt denies having any chest pain or cough, the patient denies having any abdominal pain no vomiting or any diarrhea, no new symptoms. Patient did have a creatinine of 6.87 blood culture on 312 positive for MRSA blood culture from this morning currently pending Objective - Vital Signs Vital signs: Vital Signs Temp 97.7 F 12/31/24 13:28 Pulse 67 12/31/24 13:28 Resp 18 12/31/24 14:00 BP 146/77 12/31/24 13:28 Pulse Ox 94 L 12/31/24 09:32 FiO2 Intake & Output 12/30/24 12/31/24 12/31/24 18:59 06:59 18:59 Intake Total 540 480 Balance 540 480 Weight 77.111 kg Intake: Oral 540 480 Other: Voiding Method Toilet Toilet Urinal Urinal - Exam GENERAL DESCRIPTION: Middle-age male lying in bed in no distress RESPIRATORY SYSTEM: Unlabored breathing , decreased breath sounds at bases HEART: S1 S2 regular rate and rhythm , ABDOMEN: Soft , no tenderness EXTREMITIES: No edema feet - Labs CBC & Chem 7: 12/29/24 11:56 12/31/24 07:14 Labs: Abnormal Lab Results - Last 24 Hours (Table) 12/31/24 12/31/24 12/31/24 Range/Units 05:56 07:14 11:18 Sodium 133 L (137-145) mmol/L Chloride 94 L (98-107) mmol/L Carbon Dioxide 31 H (22-30) mmol/L BUN 33 H (9-20) mg/dL Creatinine 6.87 H (0.66-1.25) mg/dL Glucose 133 H (74-99) mg/dL POC Glucose (mg/dL) 154 H 179 H (70-110) mg/dL Microbiology - Last 24 Hours (Table) 12/29/24 12:00 Blood Culture Gram Stain - Preliminary Blood Blood Culture - Preliminary Presumptive MRSA 12/29/24 11:56 Blood Culture Gram Stain - Preliminary Blood Blood Culture - Preliminary Presumptive MRSA Molecular ID Assessment and Plan (1) Bacteremia due to methicillin resistant Staphylococcus aureus Current Visit: Yes Status: Acute Code(s): R78.81 - BACTEREMIA; B95.62 - METHICILLIN RESIS STAPH INFCT CAUSING DISEASES CLASSD ELSR SNOMED Code(s): 26678670083983794 Plan: 1patient being admitted to the hospital after he was noted to have a positive blood culture in outpatient setting 2021 positive for MRSA as per discussion with nephrology in this patient who did have a complicated course with infected right upper extremity graft which was subsequently discontinued and the patient received almost 6 weeks of IV daptomycin from the negative blood culture and also have extensive workup on his last admission including a ISIDORO that was negative for any vegetation and WBC scan was negative, no possible source for bacteremia could be related to the tunneled dialysis catheter has no other obvious focus of infection 2-vascular surgery seen the patient catheter has been discontinued 3-s patient did have r CT of the right upper extremity with contrast which was reviewed with radiologist there is a clip at the right upper end question of any focus of infection 4-patient culture has been repeated document clearance will also obtain an WBC scan continue with the vancomycin have multiple question concern answered Dictation was produced using [employer] dictation software. please excuse any grammatical, word or spelling errors. Time with Patient: Less than 30
--- NOTE | 2024-12-31 16:24 | P.PN ---
Subjective Progress Note Date: 12/31/24 44-year-old -[place] male came in because of MRSA bacteremia. Patient had a right upper extremity infected graft which was subsequently discontinued during his previous hospitalization because of persistent MRSA bacteremia. Patient had a ISIDORO at that time and other extensive workup including CT angio all of which are negative for endocarditis and lung abscess. Patient completed 6 weeks of antibiotic therapy after his first negative culture that was on 11/13/2024. Patient was admitted for cellulitis at the time cultures were obtained and they came back positive for MRSA patient denies any fever chills does not have any elevated white count. Patient is admitted for possible bacteremia with MRSA and concern for dialysis catheter infection which was subsequently removed yesterday. Repeat cultures are still pending and patient is presently on IV vancomycin. Patient denied any symptoms at this time Objective - Vital Signs Vital signs: Vital Signs Temp 97.5 F L 12/31/24 09:32 Pulse 68 12/31/24 09:32 Resp 15 12/31/24 09:32 BP 175/96 12/31/24 09:32 Pulse Ox 94 L 12/31/24 09:32 FiO2 Intake & Output 12/30/24 12/31/24 12/31/24 18:59 06:59 18:59 Intake Total 540 240 Balance 540 240 Weight 77.111 kg Intake: Oral 540 240 Other: Voiding Method Toilet Toilet Urinal Urinal - Exam GENERAL: The patient is alert and oriented x3, not in any acute distress. Well developed, well nourished. HEENT: Pupils are round and equally reacting to light. EOMI. No scleral icterus. No conjunctival pallor. Normocephalic, atraumatic. No pharyngeal erythema. No thyromegaly. CARDIOVASCULAR: S1 and S2 present. No murmurs, rubs, or gallops. PULMONARY: Chest is clear to auscultation, no wheezing or crackles. ABDOMEN: Soft, nontender, nondistended, normoactive bowel sounds. No palpable organomegaly. MUSCULOSKELETAL: No joint swelling or deformity. EXTREMITIES: No cyanosis, clubbing, or pedal edema. NEUROLOGICAL: Gross neurological examination did not reveal any focal deficits. SKIN: No rashes. - Labs CBC & Chem 7: 12/29/24 11:56 12/31/24 07:14 Labs: Abnormal Lab Results - Last 24 Hours (Table) 12/31/24 12/31/24 12/31/24 Range/Units 05:56 07:14 11:18 Sodium 133 L (137-145) mmol/L Chloride 94 L (98-107) mmol/L Carbon Dioxide 31 H (22-30) mmol/L BUN 33 H (9-20) mg/dL Creatinine 6.87 H (0.66-1.25) mg/dL Glucose 133 H (74-99) mg/dL POC Glucose (mg/dL) 154 H 179 H (70-110) mg/dL Microbiology - Last 24 Hours (Table) 12/29/24 12:00 Blood Culture Gram Stain - Preliminary Blood Blood Culture - Preliminary 12/29/24 11:56 Blood Culture Gram Stain - Preliminary Blood Blood Culture - Preliminary Molecular ID Assessment and Plan Assessment: MRSA bacteremia concern for infected dialysis catheter which was removed and patient is on vancomycin which will be continued -End-stage renal disease patient received hemodialysis yesterday patient cannot get any dialysis catheter clearance of bacteremia as of now patient does not have any emergent dialysis need although patient is on vancomycin which we will continue -Hypertension -Anemia of chronic kidney disease -Hyperlipidemia -Coronary artery disease -Gastroesophageal reflux disease DVT prophylaxis: Subcutaneous heparin
[2024-12-31 16:26] LABS: Glucose,Whole Blood 206 mg/dL (70-110)
--- NOTE | 2025-01-01 09:39 | P.PN ---
Subjective HISTORY OF PRESENT ILLNESS: This is a 44-year-old male patient of Dr. Martines with past medical history of end-stage renal disease on hemodialysis, hypertension, history of cardiac arrest secondary to hypoxic event and also cardiac arrest on induction of anesthesia, recent treatment for bacteremia, dilated cardiomyopathy with EF 40%, chronic sy stolic heart failure, tricuspid regurgitation, diabetes reversed with diet. We have been asked to evaluate patient for CAD. Patient has history of bacteremia with previous workup including ISIDORO that was negative for vegetation. Patient has been on IV antibiotics and managed by Dr. Guillen. He apparently completed a 6-week course of IV antibiotics but patient states that the dialysis center has been checking blood cultures which are now positive with MRSA and thus he was admitted to the hospital and started on vancomycin. Patient states that his right IJ tunnel catheter was removed and on Friday he is expected to have access replaced. Vascular surgery is following for this. Patient currently denies any chest pain, no shortness of breath, no lightheadedness or dizziness. Blood pressure 147/91, heart rate in the 70s, pulse ox 97% on room air. Patient is seen today in the emergency center waiting for a bed on the cardiac stepdown unit. -EKG: Sinus rhythm with nonspecific ST-T wave changes. -Chest x-ray: -Laboratory studies: WBC 6.6, hemoglobin 8.4, sodium 131, potassium 4.1, BUN 26 and creatinine 5.4. -Home cardiac medications: Amlodipine 10 mg at bedtime, aspirin 81 mg daily, C oreg 50 mg twice daily, clonidine patch every Friday 0.3 mg, hydralazine 50 mg 3 times daily, Isordil 10 mg 3 times daily, midodrine as needed, Nitrostat as needed, Demadex 40 mg daily. -Cardiac catheterization performed on 12/28/[address] Cole: 100% mid LAD in- stent stenosis appears to be SITE PROJECT MANAGER, moderate to severe disease in diagonal 1, OM1, OM 2, OM 3, PDA and PL branches, moderate diffuse nonobstructive disease in the RCA. Moderate to severe mitral regurgitation. Mild pulmonary hypertension. Recommendations for viability testing before performing in-stent SITE PROJECT MANAGER of LAD. Moderate to severe to diffuse disease and branch vessel does not seem amenable to intervention. Optimize heart failure medications and recommend Entresto and uptitrating beta-jamarcus if tolerated. -Echocardiogram performed 10/26/2024 reveals EF of 30 to 35%, moderate concentric LVH, atypical septal motion, anterior septal wall hypokinesia, RVSP 65, severe TR, moderate pulmonary regurgitation, mild mitral regurgitation. -ISIDORO performed 10/28/2024 revealed no evidence of infective endocarditis. EF 40 to 45%, mild concentric LVH. Moderate pulmonary hypertension with RVSP 50 mmHg. Severe RA dilatation and mild LA dilatation. 12/31 Patient seen and examined on the cardiac stepdown unit. Patient's blood pressure readings have been elevated. 175/96, heart rate 68, pulse ox 94% on room air. Repeat blood work reveals sodium 133, potassium 4.5, BUN 33 creatinine 6.87. 01/01/2025 Patient examined this morning at the bedside. Patient currently denies chest pain or pressure. He denies shortness of breath. Blood pressure has improved today with a systolic in the 140s. Blood cultures from 12/29/2024 revealed pres umptive MRSA. Infectious diseases following. PHYSICAL EXAM: VITAL SIGNS: Reviewed. GENERAL: Well-developed in no acute distress. NECK: Supple. No JVD or thyromegaly LUNGS: Respirations even and unlabored. Lungs essentially clear to auscultation bilaterally. HEART: Regular rate and rhythm. S1 and S2 heard.Systolic murmur at the apex. EXTREMITIES: Normal range of motion. No clubbing or cyanosis. Peripheral pulses intact. No lower extremity edema ASSESSMENT: Coronary artery disease with cardiac catheterization performed 12/28 and plan for viability testing before performing in-stent SITE PROJECT MANAGER of the LAD Ischemic versus dilated cardiomyopathy with EF of 40% Chronic systolic heart failure MRSA bacteremia status post removal of right IJ tunnel catheter as possible source End-stage renal disease on hemodialysis Hypertension History of previous cardiac arrest secondary to hypoxia and second episode in the setting of anesthesia induction PLAN: Continue current cardiac medications including amlodipine, aspirin, carvedilol, hydralazine, Isordil, and Demadex Continue to monitor blood pressure Repeat blood cultures today Further recommendations pending patient course Nurse practitioner note has been reviewed by physician. Signing provider agrees with the documented findings, assessment, and plan of care documented by MYCOLOGIST as a scribe. Objective - Vital Signs Vital signs: Vital Signs Temp 98.8 F 01/01/25 08:00 Pulse 69 01/01/25 08:00 Resp 17 01/01/25 08:00 BP 128/75 01/01/25 08:00 Pulse Ox 98 01/01/25 08:00 FiO2 Intake & Output 12/31/24 01/01/25 01/01/25 18:59 06:59 18:59 Intake Total 480 Balance 480 Weight 51.5 kg Intake: Oral 480 Other: Voiding Method Toilet Toilet Toilet Urinal Urinal Urinal # Voids 1 - Labs CBC & Chem 7: 12/29/24 11:56 12/31/24 07:14 Labs: Abnormal Lab Results - Last 24 Hours (Table) 12/31/24 12/31/24 Range/Units 11:18 16:21 POC Glucose (mg/dL) 179 H 206 H (70-110) mg/dL Microbiology - Last 24 Hours (Table) 12/29/24 12:00 Blood Culture Gram Stain - Preliminary Blood Blood Culture - Preliminary Presumptive MRSA 12/29/24 11:56 Blood Culture Gram Stain - Preliminary Blood Blood Culture - Preliminary Presumptive MRSA Molecular ID
--- NOTE | 2025-01-01 10:48 | P.PN ---
Subjective Patient is seen in follow-up for end-stage renal disease. Dialysis catheter removed December 29, 2024. Last dialysis was December 29, 2024. No active c omplaints. Vital signs are stable. General: No acute distress. HEENT: Head exam is unremarkable. LUNGS: No audible rhonchi or wheezes. HEART: Rate and Rhythm are regular. ABDOMEN: A nontender. EXTREMITITES: No edema. Objective - Vital Signs Vital signs: Vital Signs Temp 98.8 F 01/01/25 08:00 Pulse 69 01/01/25 08:00 Resp 17 01/01/25 08:00 BP 128/75 01/01/25 08:00 Pulse Ox 98 01/01/25 08:00 FiO2 Intake & Output 12/31/24 01/01/25 01/01/25 18:59 06:59 18:59 Intake Total 480 Balance 480 Weight 51.5 kg Intake: Oral 480 Other: Voiding Method Toilet Toilet Toilet Urinal Urinal Urinal # Voids 1 - Labs CBC & Chem 7: 12/29/24 11:56 12/31/24 07:14 Labs: Abnormal Lab Results - Last 24 Hours (Table) 12/31/24 12/31/24 Range/Units 11:18 16:21 POC Glucose (mg/dL) 179 H 206 H (70-110) mg/dL Microbiology - Last 24 Hours (Table) 12/29/24 12:00 Blood Culture Gram Stain - Preliminary Blood Blood Culture - Preliminary Presumptive MRSA 12/29/24 11:56 Blood Culture Gram Stain - Preliminary Blood Blood Culture - Preliminary Presumptive MRSA Molecular ID Assessment and Plan Plan: Assessment: 1. End-stage renal disease maintained on hemodialysis on Friday Fr schedule via permacath. 2. MRSA bacteremia. AV graft excised earlier this year due to bacteremia. Now concerning that permacath may be the source for infection. Blood cultures positive this admission as well. No abscess noted on CT of the upper extremity. 3. Anemia of chronic kidney disease. On . 4. Hypertension with chronic kidney disease. Plan: Last dialysis December 29, 2024. Check labs daily. Continue to assess need for dialysis on daily basis. Follow-up cultures. Await infectious disease clearance for permacath placement.
[2025-01-01 12:48] LABS: Basophils # (A) 0.05 X 10*3/uL (0.00-0.10); Basophils % (A) 0.8 %; Eosinophils # (A) 0.15 X 10*3/uL (0.04-0.35); Eosinophils % (A) 2.5 %; HGB 7.7 g/dL (13.0-17.0); Lymphocytes # (A) 0.87 X 10*3/uL (0.90-5.00); Lymphocytes % (A) 14.5 %; MCHC 32.1 g/dL (32.0-37.0); MCV 96.8 FL (80.0-97.0); Mean Platelet Volume 13.4 FL (9.5-12.2); Monocytes # (A) 0.51 X 10*3/uL (0.20-1.00); Monocytes % (A) 8.5 %; NRBC Per 100 WBC 0 X 10*3/uL (0.00-0.01); Neutrophils % (A) 73.2 %; Platelet Count 162 X 10*3/uL (140-440); RBC 2.48 X 10*6/uL (4.40-5.60); RDW 19.4 % (11.5-14.5); WBC 6.01 X 10*3/uL (4.50-10.00)
[2025-01-01 12:49] LABS: BUN/Creat Ratio 4.83 Ratio (12.00-20.00); Blood Urea Nitrogen 37.7 mg/dL (9.0-27.0); Calcium 8.7 mg/dL (8.7-10.3); Carbon Dioxide 27.1 mmol/L (21.6-31.8); Chloride 95 mmol/L (96-109); Glucose 126 mg/dL (70-110); Potassium 4.9 mmol/L (3.5-5.5); Sodium 135 mmol/L (135-145)
--- NOTE | 2025-01-01 13:11 | P.PN ---
Subjective Progress Note Date: 01/01/25 Principal diagnosis: bacteremia, ESRD patient without any new complaints. Objective - Vital Signs Vital signs: Vital Signs Temp 98.8 F 01/01/25 08:00 Pulse 69 01/01/25 08:00 Resp 17 01/01/25 08:00 BP 128/75 01/01/25 08:00 Pulse Ox 98 01/01/25 08:00 FiO2 Intake & Output 12/31/24 01/01/25 01/01/25 18:59 06:59 18:59 Intake Total 480 540 Balance 480 540 Weight 51.5 kg Intake: Oral 480 540 Other: Voiding Method Toilet Toilet Toilet Urinal Urinal Urinal # Voids 1 - Exam General appearance: The patient is alert, oriented, appears in no acute distress. HET: Head is normocephalic and atraumatic. Neck: Supple. Chest: Right upper chest wall previous tunnel catheter site without any bleeding, drainage or redness. No swelling. Heart: Regular. Lungs: Equal expansion, normal respiratory effort. Abdomen: Soft, nondistended. Extremities: Normal skin color and turgor. Right upper extremity surgical inc ision healed. No swelling, erythema, tenderness or drainage. Palpable radial pulse. Neurological: Alert and oriented. - Labs CBC & Chem 7: 01/01/25 06:35 01/01/25 06:30 Labs: Abnormal Lab Results - Last 24 Hours (Table) 12/31/24 01/01/25 01/01/25 Range/Units 16:21 06:30 06:35 RBC 2.48 L (4.40-5.60) X 10*6/uL Hgb 7.7 L (13.0-17.0) g/dL Hct 24.0 L (39.6-50.0) % RDW 19.4 H (11.5-14.5) % MPV 13.4 H (9.5-12.2) FL Lymphocytes # 0.87 L (0.90-5.00) X 10*3/uL Chloride 95 L (96-109) mmol/L Anion Gap 12.90 H (4.00-12.00) mmol/L BUN 37.7 H (9.0-27.0) mg/dL Creatinine 7.8 H (0.6-1.5) mg/dL Est GFR (CKD-EPI) 8 L (>=60) BUN/Creatinine Ratio 4.83 L (12.00-20.00) Ratio Glucose 126 H (70-110) mg/dL POC Glucose (mg/dL) 206 H (70-110) mg/dL Microbiology - Last 24 Hours (Table) 12/29/24 12:00 Blood Culture Gram Stain - Preliminary Blood Blood Culture - Preliminary Presumptive MRSA 12/29/24 11:56 Blood Culture Gram Stain - Preliminary Blood Blood Culture - Preliminary Presumptive MRSA Molecular ID Assessment and Plan Assessment: 1. MRSA bacteremia 2. Right IJ tunnel catheter status post removal 3. End-stage renal disease on hemodialysis 4. Recent persistent MRSA bacteremia status post right upper extremity HD graft explantation and antibiotics 5. Coronary artery disease 6. Heart failure Plan: 1. Patient is post tunnel catheter removal 2. Continue with recommendations from infectious disease 3. Continue with recommendations from nephrology 4. Rest of medical management per primary medical team 5. Timing for dialysis access to be determined based on clearance of bacteremia
--- NOTE | 2025-01-01 15:56 | P.PN ---
Subjective Progress Note Date: 01/01/25 Principal diagnosis: Reason for follow-up is MRSA bacteremia Patient is a 44-year-old -Vin[place] male with a past medical history significant for end-stage renal disease on dialysis he recently did have a prolonged hospital stay with MRSA bacteremia related to the right upper extremity infected graft which was subsequently discontinued and complete 6-week course of IV antibiotics presented back to the hospital with bacteremia concern for possible catheter related which has been discontinued. On today's evaluation that is 01/01/2025, patient did not have any fever and denies any chills, patient is breathing comfortably on room air, patient with no chest pain or cough patient did not have any abdominal pain nausea vomiting or any loose stools. Patient white count 6.01, creatinine is 7.8 potassium is 4.9 blood culture from 12/31/2024 so far pending Objective - Vital Signs Vital signs: Vital Signs Temp 98.8 F 01/01/25 08:00 Pulse 69 01/01/25 08:00 Resp 17 01/01/25 08:00 BP 128/75 01/01/25 08:00 Pulse Ox 98 01/01/25 08:00 FiO2 Intake & Output 12/31/24 01/01/25 01/01/25 18:59 06:59 18:59 Intake Total 480 540 Balance 480 540 Weight 51.5 kg Intake: Oral 480 540 Other: Voiding Method Toilet Toilet Toilet Urinal Urinal Urinal # Voids 1 - Labs CBC & Chem 7: 01/01/25 06:35 01/01/25 06:30 Labs: Abnormal Lab Results - Last 24 Hours (Table) 12/31/24 01/01/25 01/01/25 Range/Units 16:21 06:30 06:35 RBC 2.48 L (4.40-5.60) X 10*6/uL Hgb 7.7 L (13.0-17.0) g/dL Hct 24.0 L (39.6-50.0) % RDW 19.4 H (11.5-14.5) % MPV 13.4 H (9.5-12.2) FL Lymphocytes # 0.87 L (0.90-5.00) X 10*3/uL Chloride 95 L (96-109) mmol/L Anion Gap 12.90 H (4.00-12.00) mmol/L BUN 37.7 H (9.0-27.0) mg/dL Creatinine 7.8 H (0.6-1.5) mg/dL Est GFR (CKD-EPI) 8 L (>=60) BUN/Creatinine Ratio 4.83 L (12.00-20.00) Ratio Glucose 126 H (70-110) mg/dL POC Glucose (mg/dL) 206 H (70-110) mg/dL Microbiology - Last 24 Hours (Table) 12/29/24 12:00 Blood Culture Gram Stain - Preliminary Blood Blood Culture - Preliminary Presumptive MRSA 12/29/24 11:56 Blood Culture Gram Stain - Preliminary Blood Blood Culture - Preliminary Presumptive MRSA Molecular ID Assessment and Plan (1) Bacteremia due to methicillin resistant Staphylococcus aureus Current Visit: Yes Status: Acute Code(s): R78.81 - BACTEREMIA; B95.62 - MET HICILLIN RESIS STAPH INFCT CAUSING DISEASES [facility] SNOMED Code(s): 43941118501902991 Plan: 1patient being admitted to the hospital after he was noted to have a positive blood culture in outpatient setting 2021 positive for MRSA as per discussion with nephrology in this patient who did have a complicated course with infected right upper extremity graft which was subsequently discontinued and the patient received almost 6 weeks of IV daptomycin from the negative blood culture and also have extensive workup on his last admission including a ISIDORO that was negative for any vegetation and WBC scan was negative, no possible source for bacteremia could be related to the tunneled dialysis catheter has no other obvious focus of infection 2-vascular surgery seen the patient catheter has been discontinued 3-s patient did have CT of the right upper extremity with contrast which was reviewed with radiologist there is a clip at the right upper end question of any focus of infection 4-patient culture has been repeated 12/31/2024 and it does remain to be negative at 74 however he will be able to get a new permacatheter for dialysis also waiting for WBC scan Patient multiple question concern answered Dictation was produced using [employer] dictation software. please excuse any grammatical, word or spelling errors. Time with Patient: Less than 30
--- NOTE | 2025-01-01 15:56 | P.PN ---
Subjective Progress Note Date: 01/01/25 44-year-old -[place] male came in because of MRSA bacteremia. Patient had a right upper extremity infected graft which was subsequently discontinued during his previous hospitalization because of persistent MRSA bacteremia. Patient had a ISIDORO at that time and other extensive workup including CT angio all of which are negative for endocarditis and lung abscess. Patient completed 6 weeks of antibiotic therapy after his first negative culture that was on 11/13/2024. Patient was admitted for cellulitis at the time cultures were obtained and they came back positive for MRSA patient denies any fever chills does not have any elevated white count. Patient is admitted for possible bacteremia with MRSA and concern for dialysis catheter infection which was subsequently removed yesterday. Repeat cultures are still pending and patient is presently on IV vancomycin. Patient denied any symptoms at this time 01/01/2025 1patient being admitted to the hospital after he was noted to have a positive blood culture in outpatient setting 2021 positive for MRSA as per discussion with nephrology in this patient who did have a complicated course with infected right upper extremity graft which was subsequently discontinued and the patient received almost 6 weeks of IV daptomycin from the negative blood culture and also have extensive workup on his last admission including a ISIDORO that was negative for any vegetation and WBC scan was negative, no possible source for bacteremia could be related to the tunneled dialysis catheter has no other obvious focus of infection 2-vascular surgery seen the patient catheter has been discontinued 3-s patient did have r CT of the right upper extremity with contrast which was reviewed with radiologist there is a clip at the right upper end question of any focus of infection 4-patient culture has been repeated document clearance will also obtain an WBC scan continue with the vancomycin have multiple question concern answered 025 Objective - Vital Signs Vital signs: Vital Signs Temp 98.8 F 01/01/25 08:00 Pulse 69 01/01/25 08:00 Resp 17 01/01/25 08:00 BP 128/75 01/01/25 08:00 Pulse Ox 98 01/01/25 08:00 FiO2 Intake & Output 12/31/24 01/01/25 01/01/25 18:59 06:59 18:59 Intake Total 480 Balance 480 Weight 51.5 kg Intake: Oral 480 Other: Voiding Method Toilet Toilet Toilet Urinal Urinal Urinal # Voids 1 - Exam GENERAL: The patient is alert and oriented x3, not in any acute distress. Well developed, well nourished. HEENT: Pupils are round and equally reacting to light. EOMI. No scleral icterus. No conjunctival pallor. Normocephalic, atraumatic. No pharyngeal erythema. No thyromegaly. CARDIOVASCULAR: S1 and S2 present. No murmurs, rubs, or gallops. PULMONARY: Chest is clear to auscultation, no wheezing or crackles. ABDOMEN: Soft, nontender, nondistended, normoactive bowel sounds. No palpable organomegaly. MUSCULOSKELETAL: No joint swelling or deformity. EXTREMITIES: No cyanosis, clubbing, or pedal edema. NEUROLOGICAL: Gross neurological examination did not reveal any focal deficits. SKIN: No rashes. - Labs CBC & Chem 7: 01/01/25 06:35 01/01/25 06:30 Labs: Abnormal Lab Results - Last 24 Hours (Table) 12/31/24 12/31/24 Range/Units 11:18 16:21 POC Glucose (mg/dL) 179 H 206 H (70-110) mg/dL Microbiology - Last 24 Hours (Table) 12/29/24 12:00 Blood Culture Gram Stain - Preliminary Blood Blood Culture - Preliminary Presumptive MRSA 12/29/24 11:56 Blood Culture Gram Stain - Preliminary Blood Blood Culture - Preliminary Presumptive MRSA Molecular ID Assessment and Plan Assessment: MRSA bacteremia concern for infected dialysis catheter which was removed and patient is on vancomycin which will be continued -End-stage renal disease patient received hemodialysis yesterday patient cannot get any dialysis catheter clearance of bacteremia as of now patient does not have any emergent dialysis need although patient is on vancomycin which we will continue -Hypertension -Anemia of chronic kidney disease -Hyperlipidemia -Coronary artery disease -Gastroesophageal reflux disease DVT prophylaxis: Subcutaneous heparin
[2025-01-01 16:41] LABS: Glucose,Whole Blood 196 mg/dL (70-110)
[2025-01-01] MEDS ORDERED: DEXTROSE 50% SYRINGE 50 ML IVP PRN (17:41)
[2025-01-01 20:55] LABS: Glucose,Whole Blood 196 mg/dL (70-110)
[2025-01-01] MEDS: INSULIN LISPRO (HumaLOG) 100 UNIT/ML 10 mL VL SQ SCH (20:56)
[2025-01-02 06:19] LABS: Glucose,Whole Blood 177 mg/dL (70-110)
[2025-01-02] MEDS: INSULIN GLARGINE (LANTUS) 100 UNIT/ML SYR SQ SCH (06:34)
[2025-01-02] MEDS: cloNIDine 0.3 MG/24HR PATCH TRANSDERM SCH (09:36)
[2025-01-02 09:46] LABS: African American GFR (CKD) 7 (>60 ml/min/1.73 sqM); Anion Gap 11 mmol/L; Blood Urea Nitrogen 53 mg/dL (9-20); Calcium 9.2 mg/dL (8.4-10.2); Carbon Dioxide 27 mmol/L (22-30); Chloride 97 mmol/L (98-107); Glucose 77 mg/dL (74-99); Non-African American GFR(CKD) 6 (>60 ml/min/1.73 sqM); Potassium 4.7 mmol/L (3.5-5.1); Sodium 135 mmol/L (137-145)
--- NOTE | 2025-01-02 10:02 | P.PN ---
Subjective HISTORY OF PRESENT ILLNESS: This is a 44-year-old male patient of Dr. Martines with past medical history of end-stage renal disease on hemodialysis, hypertension, history of cardiac arrest secondary to hypoxic event and also cardiac arrest on induction of anesthesia, recent treatment for bacteremia, dilated cardiomyopathy with EF 40%, chronic sy stolic heart failure, tricuspid regurgitation, diabetes reversed with diet. We have been asked to evaluate patient for CAD. Patient has history of bacteremia with previous workup including ISIDORO that was negative for vegetation. Patient has been on IV antibiotics and managed by Dr. Guillen. He apparently completed a 6-week course of IV antibiotics but patient states that the dialysis center has been checking blood cultures which are now positive with MRSA and thus he was admitted to the hospital and started on vancomycin. Patient states that his right IJ tunnel catheter was removed and on Friday he is expected to have access replaced. Vascular surgery is following for this. Patient currently denies any chest pain, no shortness of breath, no lightheadedness or dizziness. Blood pressure 147/91, heart rate in the 70s, pulse ox 97% on room air. Patient is seen today in the emergency center waiting for a bed on the cardiac stepdown unit. -EKG: Sinus rhythm with nonspecific ST-T wave changes. -Chest x-ray: -Laboratory studies: WBC 6.6, hemoglobin 8.4, sodium 131, potassium 4.1, BUN 26 and creatinine 5.4. -Home cardiac medications: Amlodipine 10 mg at bedtime, aspirin 81 mg daily, C oreg 50 mg twice daily, clonidine patch every Friday 0.3 mg, hydralazine 50 mg 3 times daily, Isordil 10 mg 3 times daily, midodrine as needed, Nitrostat as needed, Demadex 40 mg daily. -Cardiac catheterization performed on 12/28/[address] Cole: 100% mid LAD in- stent stenosis appears to be REGULATORY AFFAIRS SPEC, moderate to severe disease in diagonal 1, OM1, OM 2, OM 3, PDA and PL branches, moderate diffuse nonobstructive disease in the RCA. Moderate to severe mitral regurgitation. Mild pulmonary hypertension. Recommendations for viability testing before performing in-stent REGULATORY AFFAIRS SPEC of LAD. Moderate to severe to diffuse disease and branch vessel does not seem amenable to intervention. Optimize heart failure medications and recommend Entresto and uptitrating beta-jamarcus if tolerated. -Echocardiogram performed 10/26/2024 reveals EF of 30 to 35%, moderate concentric LVH, atypical septal motion, anterior septal wall hypokinesia, RVSP 65, severe TR, moderate pulmonary regurgitation, mild mitral regurgitation. -ISIDORO performed 10/28/2024 revealed no evidence of infective endocarditis. EF 40 to 45%, mild concentric LVH. Moderate pulmonary hypertension with RVSP 50 mmHg. Severe RA dilatation and mild LA dilatation. 12/31 Patient seen and examined on the cardiac stepdown unit. Patient's blood pressure readings have been elevated. 175/96, heart rate 68, pulse ox 94% on room air. Repeat blood work reveals sodium 133, potassium 4.5, BUN 33 creatinine 6.87. 01/01/2025 Patient examined this morning at the bedside. Patient currently denies chest pain or pressure. He denies shortness of breath. Blood pressure has improved today with a systolic in the 140s. Blood cultures from 12/29/2024 revealed pres umptive MRSA. Infectious diseases following. 01/02/2025 Patient examined this morning at bedside. Patient currently denies chest pain or pressure. Patient denies shortness of breath. Blood cultures obtained are negative at the 24-hour jh. PHYSICAL EXAM: VITAL SIGNS: Reviewed. GENERAL: Well-developed in no acute distress. NECK: Supple. No JVD or thyromegaly LUNGS: Respirations even and unlabored. Lungs essentially clear to auscultation bilaterally. HEART: Regular rate and rhythm. S1 and S2 heard.Systolic murmur at the apex. EXTREMITIES: Normal range of motion. No clubbing or cyanosis. Peripheral pulses intact. No lower extremity edema ASSESSMENT: Coronary artery disease with cardiac catheterization performed 12/28 and plan for viability testing before performing in-stent REGULATORY AFFAIRS SPEC of the LAD Ischemic versus dilated cardiomyopathy with EF of 40% Chronic systolic heart failure MRSA bacteremia status post removal of right IJ tunnel catheter as possible source End-stage renal disease on hemodialysis Hypertension History of previous cardiac arrest secondary to hypoxia and second episode in the setting of anesthesia induction PLAN: Continue current cardiac medications including amlodipine, aspirin, carvedilol, hydralazine, Isordil, and Demadex Continue to monitor blood pressure [place] to monitor blood cultures. Infectious disease following. Patient to undergo WBC scan tomorrow. Further recommendations pending patient course Nurse practitioner note has been reviewed by physician. Signing provider agrees with the documented findings, assessment, and plan of care documented by [employer] as a scribe. Objective - Vital Signs Vital signs: Vital Signs Temp 98.4 F 01/02/25 07:00 Pulse 70 01/02/25 07:00 Resp 17 01/02/25 07:00 BP 163/86 01/02/25 07:00 Pulse Ox 98 01/02/25 07:00 FiO2 Intake & Output 01/01/25 01/02/25 01/02/25 18:59 06:59 18:59 Intake Total 980 Balance 980 Weight 43.5 kg Intake: Oral 980 Other: Voiding Method Toilet Toilet Urinal Urinal # Voids 1 1 - Labs CBC & Chem 7: 01/01/25 06:35 01/02/25 09:02 Labs: Abnormal Lab Results - Last 24 Hours (Table) 01/01/25 01/01/25 01/01/25 Range/Units 06:30 06:35 16:39 RBC 2.48 L (4.40-5.60) X 10*6/uL Hgb 7.7 L (13.0-17.0) g/dL Hct 24.0 L (39.6-50.0) % RDW 19.4 H (11.5-14.5) % MPV 13.4 H (9.5-12.2) FL Lymphocytes # 0.87 L (0.90-5.00) X 10*3/uL Sodium (137-145) mmol/L Chloride 95 L (96-109) mmol/L Anion Gap 12.90 H (4.00-12.00) mmol/L BUN 37.7 H (9.0-27.0) mg/dL Creatinine 7.8 H (0.6-1.5) mg/dL Est GFR (CKD-EPI) 8 L (>=60) BUN/Creatinine Ratio 4.83 L (12.00-20.00) Ratio Glucose 126 H (70-110) mg/dL POC Glucose (mg/dL) 196 H (70-110) mg/dL 01/01/25 01/02/25 01/02/25 Range/Units 20:53 06:18 09:02 RBC (4.40-5.60) X 10*6/uL Hgb (13.0-17.0) g/dL Hct (39.6-50.0) % RDW (11.5-14.5) % MPV (9.5-12.2) FL Lymphocytes # (0.90-5.00) X 10*3/uL Sodium 135 L (137-145) mmol/L Chloride 97 L (96-109) mmol/L Anion Gap (4.00-12.00) mmol/L BUN 53 H (9.0-27.0) mg/dL Creatinine 9.32 H* (0.6-1.5) mg/dL Est GFR (CKD-EPI) (>=60) BUN/Creatinine Ratio (12.00-20.00) Ratio Glucose (70-110) mg/dL POC Glucose (mg/dL) 196 H 177 H (70-110) mg/dL Microbiology - Last 24 Hours (Table) 12/29/24 12:00 Blood Culture Gram Stain - Preliminary Blood Blood Culture - Preliminary Presumptive MRSA 12/31/24 11:13 Blood Culture - Preliminary Blood
--- NOTE | 2025-01-02 10:32 | P.PN ---
Subjective Patient is seen in follow-up for end-stage renal disease. Dialysis catheter removed December 29, 2024. Last dialysis was December 29, 2024. No active c omplaints. Vital signs are stable. General: No acute distress. HEENT: Head exam is unremarkable. LUNGS: No audible rhonchi or wheezes. HEART: Rate and Rhythm are regular. ABDOMEN: A nontender. EXTREMITITES: No edema. Objective - Vital Signs Vital signs: Vital Signs Temp 98.4 F 01/02/25 07:00 Pulse 70 01/02/25 07:00 Resp 17 01/02/25 07:00 BP 163/86 01/02/25 07:00 Pulse Ox 98 01/02/25 07:00 FiO2 Intake & Output 01/01/25 01/02/25 01/02/25 18:59 06:59 18:59 Intake Total 980 Balance 980 Weight 43.5 kg Intake: Oral 980 Other: Voiding Method Toilet Toilet Urinal Urinal # Voids 1 1 - Labs CBC & Chem 7: 01/01/25 06:35 01/02/25 09:02 Labs: Abnormal Lab Results - Last 24 Hours (Table) 01/01/25 01/01/25 01/01/25 Range/Units 06:30 06:35 16:39 RBC 2.48 L (4.40-5.60) X 10*6/uL Hgb 7.7 L (13.0-17.0) g/dL Hct 24.0 L (39.6-50.0) % RDW 19.4 H (11.5-14.5) % MPV 13.4 H (9.5-12.2) FL Lymphocytes # 0.87 L (0.90-5.00) X 10*3/uL Sodium (137-145) mmol/L Chloride 95 L (96-109) mmol/L Anion Gap 12.90 H (4.00-12.00) mmol/L BUN 37.7 H (9.0-27.0) mg/dL Creatinine 7.8 H (0.6-1.5) mg/dL Est GFR (CKD-EPI) 8 L (>=60) BUN/Creatinine Ratio 4.83 L (12.00-20.00) Ratio Glucose 126 H (70-110) mg/dL POC Glucose (mg/dL) 196 H (70-110) mg/dL 01/01/25 01/02/25 01/02/25 Range/Units 20:53 06:18 09:02 RBC (4.40-5.60) X 10*6/uL Hgb (13.0-17.0) g/dL Hct (39.6-50.0) % RDW (11.5-14.5) % MPV (9.5-12.2) FL Lymphocytes # (0.90-5.00) X 10*3/uL Sodium 135 L (137-145) mmol/L Chloride 97 L (96-109) mmol/L Anion Gap (4.00-12.00) mmol/L BUN 53 H (9.0-27.0) mg/dL Creatinine 9.32 H* (0.6-1.5) mg/dL Est GFR (CKD-EPI) (>=60) BUN/Creatinine Ratio (12.00-20.00) Ratio Glucose (70-110) mg/dL POC Glucose (mg/dL) 196 H 177 H (70-110) mg/dL Microbiology - Last 24 Hours (Table) 12/29/24 12:00 Blood Culture Gram Stain - Preliminary Blood Blood Culture - Preliminary Presumptive MRSA 12/31/24 11:13 Blood Culture - Preliminary Blood Assessment and Plan Plan: Assessment: 1. End-stage renal disease maintained on hemodialysis on Friday schedule via permacath. 2. MRSA bacteremia. AV graft excised earlier this year due to bacteremia. Now concerning that permacath may be the source for infection. Blood cultures positive this admission as well. No abscess noted on CT of the upper extremity. 3. Anemia of chronic kidney disease. On Aranesp. 4. Hypertension with chronic kidney disease. Plan: Last dialysis December 29, 2024. Check labs daily. Continue to assess need for dialysis on daily basis. Follow-up cultures. Await infectious disease clearance for permacath placement. WBC scan scheduled for tomorrow. Maintain torsemide.
[2025-01-02 12:19] LABS: Glucose,Whole Blood 73 mg/dL (70-110)
--- NOTE | 2025-01-02 16:15 | P.PN ---
Subjective Progress Note Date: 01/02/25 Principal diagnosis: Reason for follow-up is MRSA bacteremia Patient is a 44-year-old -[place] male with a past medical history significant for end-stage renal disease on dialysis he recently did have a prolonged hospital stay with MRSA bacteremia related to the right upper extremity infected graft which was subsequently discontinued and complete 6-week course of IV antibiotics presented back to the hospital with bacteremia concern for possible catheter related which has been discontinued. On today's evaluation that is 01/02/2025, Patient is afebrile patient is cur rently on room air and denies having any shortness of breath, the patient denies any chest pain or cough, the patient denies any nausea vomiting did not have any abdominal pain and no diarrhea. Patient did have a creatinine 9.32 potassium is 4.7 blood culture from 12/31/2024 so far negative Objective - Vital Signs Vital signs: Vital Signs Temp 98.4 F 01/02/25 07:00 Pulse 70 01/02/25 07:00 Resp 17 01/02/25 07:00 BP 163/86 01/02/25 07:00 Pulse Ox 98 01/02/25 07:00 FiO2 Intake & Output 01/01/25 01/02/25 01/02/25 18:59 06:59 18:59 Intake Total 980 Balance 980 Weight 43.5 kg Intake: Oral 980 Other: Voiding Method Toilet Toilet Toilet Urinal Urinal Urinal # Voids 1 1 - Exam GENERAL DESCRIPTION: Middle-age male lying in bed in no distress RESPIRATORY SYSTEM: Unlabored breathing , decreased breath sounds at bases HEART: S1 S2 regular rate and rhythm , ABDOMEN: Soft , no tenderness EXTREMITIES: No edema feet - Labs CBC & Chem 7: 01/01/25 06:35 01/02/25 09:02 Labs: Abnormal Lab Results - Last 24 Hours (Table) 01/01/25 01/01/25 01/02/25 Range/Units 16:39 20:53 06:18 Sodium (137-145) mmol/L Chloride (98-107) mmol/L BUN (9-20) mg/dL Creatinine (0.66-1.25) mg/dL POC Glucose (mg/dL) 196 H 196 H 177 H (70-110) mg/dL 01/02/25 Range/Units 09:02 Sodium 135 L (137-145) mmol/L Chloride 97 L (98-107) mmol/L BUN 53 H (9-20) mg/dL Creatinine 9.32 H* (0.66-1.25) mg/dL POC Glucose (mg/dL) (70-110) mg/dL Microbiology - Last 24 Hours (Table) 12/29/24 12:00 Blood Culture Gram Stain - Preliminary Blood Blood Culture - Preliminary Presumptive MRSA 12/31/24 11:13 Blood Culture - Preliminary Blood Assessment and Plan (1) Bacteremia due to methicillin resistant Staphylococcus aureus Current Visit: Yes Status: Acute Code(s): R78.81 - BACTEREMIA; B95.62 - METHICILLIN RESIS STAPH INFCT CAUSING DISEASES [facility] SNOMED Code(s): 08207518759187150 Plan: 1patient being admitted to the hospital after he was noted to have a positive blood culture in outpatient setting 2021 positive for MRSA as per discussion with nephrology in this patient who did have a complicated course with infected right upper extremity graft which was subsequently discontinued and the patient received almost 6 weeks of IV daptomycin from the negative blood culture and also have extensive workup on his last admission including a ISIDORO that was negative for any vegetation and WBC scan was negative, no possible source for bacteremia could be related to the tunneled dialysis catheter has no other obvious focus of infection 2-vascular surgery seen the patient catheter has been discontinued 3-s patient did have CT of the right upper extremity with contrast which was reviewed with radiologist there is a clip at the right upper end question of any focus of infection 4-patient culture has been repeated 12/31/2024 and so far negative with the remains to be negative at 72-hour he is going to get a new permacatheter currently waiting for WBC scan continue with the vancomycin Dictation was produced using [employer] dictation software. please excuse any grammatical, word or spelling errors. Time with Patient: Less than 30
[2025-01-02 16:41] LABS: Glucose,Whole Blood 154 mg/dL (70-110)
--- NOTE | 2025-01-02 18:07 | P.PN ---
Subjective Progress Note Date: 01/02/25 44-year-old -[place] male came in because of MRSA bacteremia. Patient had a right upper extremity infected graft which was subsequently discontinued during his previous hospitalization because of persistent MRSA bacteremia. Patient had a ISIDORO at that time and other extensive workup including CT angio all of which are negative for endocarditis and lung abscess. Patient completed 6 weeks of antibiotic therapy after his first negative culture that was on 11/13/2024. Patient was admitted for cellulitis at the time cultures were obtained and they came back positive for MRSA patient denies any fever chills does not have any elevated white count. Patient is admitted for possible bacteremia with MRSA and concern for dialysis catheter infection which was subsequently removed yesterday. Repeat cultures are still pending and patient is presently on IV vancomycin. Patient denied any symptoms at this time 01/01/2025 1patient being admitted to the hospital after he was noted to have a positive blood culture in outpatient setting 2021 positive for MRSA as per discussion with nephrology in this patient who did have a complicated course with infected right upper extremity graft which was subsequently discontinued and the patient received almost 6 weeks of IV daptomycin from the negative blood culture and also have extensive workup on his last admission including a ISIDORO that was negative for any vegetation and WBC scan was negative, no possible source for bacteremia could be related to the tunneled dialysis catheter has no other obvious focus of infection 2-vascular surgery seen the patient catheter has been discontinued 3- patient did have r CT of the right upper extremity with contrast which was reviewed with radiologist there is a clip at the right upper end question of any focus of infection 4-patient culture has been repeated document clearance will also obtain an WBC scan continue with the vancomycin have multiple question concern answered01/02/2001/02/2025 Patient is seen and evaluated in room at bedside; discussed with nursing staff and no specific complaints reported Vital signs are stable temperature 98.4, pulse 70, respirations 17, blood pressure 163/86 Lab review shows WBC 6.0, hemoglobin 7.7 and platelet count of 162, sodium 135, potassium 4.7, BUN 53 with creatinine of 9.3 patient being admitted to the hospital after he was noted to have a positive blood culture in outpatient setting 2021 positive for MRSA as per discussion with nephrology in this patient who did have a complicated course with infected right upper extremity graft which was subsequently discontinued and the patient received almost 6 weeks of IV daptomycin from the negative blood culture and also have extensive workup on his last admission including a ISIDORO that was negative for any vegetation and WBC scan was negative, no possible source for bacteremia could be related to the tunneled dialysis catheter has no other obvious focus of infection -vascular surgery seen the patient catheter has been discontinued -patient did have CT of the right upper extremity with contrast which was reviewed with radiologist there is a clip at the right upper end question of any focus of infection -patient culture has been repeated 12/31/2024 and so far negative with the remains to be negative at 72-hour he is going to get a new permacatheter currently waiting for WBC scan continue with the vancomycin Objective - Vital Signs Vital signs: Vital Signs Temp 98.4 F 01/02/25 07:00 Pulse 70 01/02/25 07:00 Resp 17 01/02/25 07:00 BP 163/86 01/02/25 07:00 Pulse Ox 98 01/02/25 07:00 FiO2 Intake & Output 01/01/25 01/02/25 01/02/25 18:59 06:59 18:59 Intake Total 980 Balance 980 Weight 43.5 kg Intake: Oral 980 Other: Voiding Method Toilet Toilet Urinal Urinal # Voids 1 1 - Exam GENERAL: The patient is alert and oriented x3, not in any acute distress. Well developed, well nourished. HEENT: Pupils are round and equally reacting to light. EOMI. No scleral icterus. No conjunctival pallor. Normocephalic, atraumatic. No pharyngeal erythema. No thyromegaly. CARDIOVASCULAR: S1 and S2 present. No murmurs, rubs, or gallops. PULMONARY: Chest is clear to auscultation, no wheezing or crackles. ABDOMEN: Soft, nontender, nondistended, normoactive bowel sounds. No palpable organomegaly. MUSCULOSKELETAL: No joint swelling or deformity. EXTREMITIES: No cyanosis, clubbing, or pedal edema. NEUROLOGICAL: Gross neurological examination did not reveal any focal deficits. SKIN: No rashes. - Labs CBC & Chem 7: 01/01/25 06:35 01/02/25 09:02 Labs: Abnormal Lab Results - Last 24 Hours (Table) 01/01/25 01/01/25 01/01/25 Range/Units 06:30 06:35 16:39 RBC 2.48 L (4.40-5.60) X 10*6/uL Hgb 7.7 L (13.0-17.0) g/dL Hct 24.0 L (39.6-50.0) % RDW 19.4 H (11.5-14.5) % MPV 13.4 H (9.5-12.2) FL Lymphocytes # 0.87 L (0.90-5.00) X 10*3/uL Sodium (137-145) mmol/L Chloride 95 L (96-109) mmol/L Anion Gap 12.90 H (4.00-12.00) mmol/L BUN 37.7 H (9.0-27.0) mg/dL Creatinine 7.8 H (0.6-1.5) mg/dL Est GFR (CKD-EPI) 8 L (>=60) BUN/Creatinine Ratio 4.83 L (12.00-20.00) Ratio Glucose 126 H (70-110) mg/dL POC Glucose (mg/dL) 196 H (70-110) mg/dL 01/01/25 01/02/25 01/02/25 Range/Units 20:53 06:18 09:02 RBC (4.40-5.60) X 10*6/uL Hgb (13.0-17.0) g/dL Hct (39.6-50.0) % RDW (11.5-14.5) % MPV (9.5-12.2) FL Lymphocytes # (0.90-5.00) X 10*3/uL Sodium 135 L (137-145) mmol/L Chloride 97 L (96-109) mmol/L Anion Gap (4.00-12.00) mmol/L BUN 53 H (9.0-27.0) mg/dL Creatinine 9.32 H* (0.6-1.5) mg/dL Est GFR (CKD-EPI) (>=60) BUN/Creatinine Ratio (12.00-20.00) Ratio Glucose (70-110) mg/dL POC Glucose (mg/dL) 196 H 177 H (70-110) mg/dL Microbiology - Last 24 Hours (Table) 12/29/24 12:00 Blood Culture Gram Stain - Preliminary Blood Blood Culture - Preliminary Presumptive MRSA 12/31/24 11:13 Blood Culture - Preliminary Blood Assessment and Plan Assessment: MRSA bacteremia concern for infected dialysis catheter which was removed and patient is on vancomycin which will be continued -End-stage renal disease patient received hemodialysis yesterday patient cannot get any dialysis catheter clearance of bacteremia as of now patient does not have any emergent dialysis need although patient is on vancomycin which we will continue -Hypertension -Anemia of chronic kidney disease -Hyperlipidemia -Coronary artery disease -Gastroesophageal reflux disease DVT prophylaxis: Subcutaneous heparin
[2025-01-02 20:51] LABS: Glucose,Whole Blood 203 mg/dL (70-110)
[2025-01-03 06:13] LABS: Glucose,Whole Blood 175 mg/dL (70-110)
--- NOTE | 2025-01-03 08:48 | P.PN ---
Subjective Progress Note Date: 01/03/25 Principal diagnosis: Bacteremia Patient is seen and examined today as a follow-up. He is undergoing tagged WBC scan. Results not available at this time. Patient has been afebrile throughout the weekend. No acute changes. Repeat preliminary blood cultures are still positive. Today's labs are currently pending. Objective - Vital Signs Vital signs: Vital Signs Temp 98.5 F 01/03/25 01:18 Pulse 70 01/03/25 01:18 Resp 16 01/03/25 01:18 BP 147/77 01/03/25 01:18 Pulse Ox 99 01/03/25 01:18 FiO2 Intake & Output 01/02/25 01/03/25 01/03/25 18:59 06:59 18:59 Weight 42 kg Other: Voiding Method Toilet Toilet Urinal Urinal # Voids 3 - Exam General appearance: The patient is alert, oriented, appears in no acute distr ess. HET: Head is normocephalic and atraumatic. Neck: Supple. Chest: Right upper chest wall previous tunnel catheter site without any bleeding, drainage or redness. No swelling. Lungs: Equal expansion, normal respiratory effort. Abdomen: Soft, nondistended. Extremities: Normal skin color and turgor. Right upper extremity surgical incision healed. No swelling, erythema, tenderness or drainage. Palpable radial pulse. Neurological: Alert and oriented. - Labs CBC & Chem 7: 01/01/25 06:35 01/02/25 09:02 Labs: Abnormal Lab Results - Last 24 Hours (Table) 01/02/25 01/02/25 01/02/25 Range/Units 09:02 16:40 20:50 Sodium 135 L (137-145) mmol/L Chloride 97 L (98-107) mmol/L BUN 53 H (9-20) mg/dL Creatinine 9.32 H* (0.66-1.25) mg/dL POC Glucose (mg/dL) 154 H 203 H (70-110) mg/dL 01/03/25 Range/Units 06:11 Sodium (137-145) mmol/L Chloride (98-107) mmol/L BUN (9-20) mg/dL Creatinine (0.66-1.25) mg/dL POC Glucose (mg/dL) 175 H (70-110) mg/dL Microbiology - Last 24 Hours (Table) 01/01/25 10:02 Blood Culture Gram Stain - Preliminary Blood Blood Culture - Preliminary 12/31/24 11:13 Blood Culture - Preliminary Blood Assessment and Plan Assessment: 1. MRSA bacteremia 2. Right IJ tunnel catheter status post removal 3. End-stage renal disease on hemodialysis 4. Recent persistent MRSA bacteremia status post right upper extremity HD graft explantation and antibiotics 5. Coronary artery disease 6. Heart failure Plan: 1. Patient is post tunnel catheter removal 2. Continue with recommendations from infectious disease 3. Continue with recommendations from nephrology 4. Tagged WBC scan pending 5. Timing for dialysis access to be determined based on clearance of bacteremia 6. Rest of medical management per primary medical team Thank you for this consultation, we will follow along. The impression and plan of care has been dictated as directed. Dr. Moore I performed a history and examination of this patient, discussed the same with the dictator. I agree with the dictator's note ,documented as a scribe. Any a dditional findings or plans will be noted.
[2025-01-03 09:23] LABS: BUN/Creat Ratio 5.75 Ratio (12.00-20.00); Blood Urea Nitrogen 55.8 mg/dL (9.0-27.0); Calcium 8.7 mg/dL (8.7-10.3); Carbon Dioxide 26.7 mmol/L (21.6-31.8); Chloride 98 mmol/L (96-109); Glucose 127 mg/dL (70-110); Magnesium 2.2 mg/dL (1.5-2.4); Potassium 4.7 mmol/L (3.5-5.5); Sodium 137 mmol/L (135-145)
--- NOTE | 2025-01-03 10:19 | P.PN ---
Subjective 44-year-old -[place] male came in because of MRSA bacteremia. Patient had a right upper extremity infected graft which was subsequently discontinued during his previous hospitalization because of persistent MRSA bacteremia. Patient had a ISIDORO at that time and other extensive workup including CT angio all of which are negative for endocarditis and lung abscess. Patient completed 6 weeks of antibiotic therapy after his first negative culture that was on 11/13/2024. Patient was admitted for cellulitis at the time cultures were obtained and they came back positive for MRSA patient denies any fever chills does not have any elevated white count. Patient is admitted for possible bacteremia with MRSA and concern for dialysis catheter infection which was subsequently removed yesterday. Repeat cultures are still pending and patient is presently on IV vancomycin. Patient denied any symptoms at this time 01/01/2025 1patient being admitted to the hospital after he was noted to have a positive blood culture in outpatient setting 2021 positive for MRSA as per discussion with nephrology in this patient who did have a complicated course with infected right upper extremity graft which was subsequently discontinued and the patient received almost 6 weeks of IV daptomycin from the negative blood culture and also have extensive workup on his last admission including a ISIDORO that was negative for any vegetation and WBC scan was negative, no possible source for bacteremia could be related to the tunneled dialysis catheter has no other obvious focus of infection 2-vascular surgery seen the patient catheter has been discontinued 3- patient did have r CT of the right upper extremity with contrast which was r eviewed with radiologist there is a clip at the right upper end question of any focus of infection 4-patient culture has been repeated document clearance will also obtain an WBC scan continue with the vancomycin have multiple question concern answered01/01/2025 01/02/2025 Patient is seen and evaluated in room at bedside; discussed with nursing staff and no specific complaints reported Vital signs are stable temperature 98.4, pulse 70, respirations 17, blood pressure 163/86 Lab review shows WBC 6.0, hemoglobin 7.7 and platelet count of 162, sodium 135, potassium 4.7, BUN 53 with creatinine of 9.3 patient being admitted to the hospital after he was noted to have a positive blood culture in outpatient setting 2021 positive for MRSA as per discussion with nephrology in this patient who did have a complicated course with infected right upper extremity graft which was subsequently discontinued and the patient received almost 6 weeks of IV daptomycin from the negative blood culture and also have extensive workup on his last admission including a ISIDORO that was negative for any vegetation and WBC scan was negative, no possible source for bacteremia could be related to the tunneled dialysis catheter has no other obvious focus of infection -vascular surgery seen the patient catheter has been discontinued -patient did have CT of the right upper extremity with contrast which was reviewed with radiologist there is a clip at the right upper end question of any focus of infection -patient culture has been repeated 12/31/2024 and so far negative with the remains to be negative at 72-hour he is going to get a new permacatheter currently waiting for WBC scan continue with the vancomycin 01/03 This is a pleasant 44 years old -[place] male with a known case of hemodialysis and presents with bacteremia secondary to MRSA with history of ischemic cardiomyopathy. [facility] source is infected dialysis catheter which was removed Patient lying in bed states he feels better, however he is lethargic, slow to answer, does not look confused Denies any other specific complaints His right upper extremity is with minimal cellulitis, puncture wound from his right upper chest hemodialysis catheter which was removed. Looks okay with no surrounding cellulitis, no purulent discharge. Dressing is in place. Patient currently kept on IV vancomycin Objective - Vital Signs Vital signs: Vital Signs Temp 98.2 F 01/03/25 06:45 Pulse 67 01/03/25 06:45 Resp 16 01/03/25 06:45 BP 120/65 01/03/25 06:45 Pulse Ox 99 01/03/25 06:45 FiO2 Intake & Output 01/02/25 01/03/25 01/03/25 18:59 06:59 18:59 Weight 42 kg 83.6 kg Other: Voiding Method Toilet Toilet Urinal Urinal # Voids 3 - Exam -GENERAL: The patient is alert and oriented x3, not in any acute distress. Well developed, well nourished. Lethargic HEENT: Pupils are round and equally reacting to light. EOMI. No scleral icterus. No conjunctival pallor. Normocephalic, atraumatic. No pharyngeal erythema. No thyromegaly. CARDIOVASCULAR: S1 and S2 present. No murmurs, rubs, or gallops. -PULMONARY: Chest is clear to auscultation, no wheezing , no crackles. Right upper chest wall puncture wound with no surrounding cellulitis ABDOMEN: Soft, nontender, nondistended, normoactive bowel sounds. No palpable organomegaly. MUSCULOSKELETAL: No joint swelling or deformity. EXTREMITIES: No cyanosis, clubbing, or pedal edema. NEUROLOGICAL: Gross neurological examination did not reveal any focal deficits. SKIN: No rashes. no petechiae. - Labs CBC & Chem 7: 01/01/25 06:35 01/03/25 02:34 Labs: Abnormal Lab Results - Last 24 Hours (Table) 01/02/25 01/02/25 01/03/25 Range/Units 16:40 20:50 02:34 Anion Gap 12.30 H (4.00-12.00) mmol/L BUN 55.8 H (9.0-27.0) mg/dL Creatinine 9.7 H (0.6-1.5) mg/dL Est GFR (CKD-EPI) 6 L (>=60) BUN/Creatinine Ratio 5.75 L (12.00-20.00) Ratio Glucose 127 H (70-110) mg/dL POC Glucose (mg/dL) 154 H 203 H (70-110) mg/dL 01/03/25 Range/Units 06:11 Anion Gap (4.00-12.00) mmol/L BUN (9.0-27.0) mg/dL Creatinine (0.6-1.5) mg/dL Est GFR (CKD-EPI) (>=60) BUN/Creatinine Ratio (12.00-20.00) Ratio Glucose (70-110) mg/dL POC Glucose (mg/dL) 175 H (70-110) mg/dL Microbiology - Last 24 Hours (Table) 01/01/25 10:02 Blood Culture Gram Stain - Preliminary Blood Blood Culture - Preliminary Presumptive MRSA 12/31/24 11:13 Blood Culture - Preliminary Blood Assessment and Plan Assessment: MRSA bacteremia concern for infected dialysis catheter which was removed and patient is on vancomycin which will be continued -End-stage renal disease patient received hemodialysis yesterday patient cannot get any dialysis catheter clearance of bacteremia as of now patient does not have any emergent dialysis need although patient is on vancomycin which we will continue -Hypertension -Anemia of chronic kidney disease -Hyperlipidemia -Coronary artery disease -Gastroesophageal reflux disease Plan: Continue with IV vancomycin Follow-up blood culture Infectious disease consult in place, with plan to clear him to place another dialysis catheter once culture is finalized Nephrology team on the case Cardiology team consult Further recommendation based on the clinical course DVT prophylaxis: Protonix DVT prophylaxis: Subcutaneous heparin Prognosis is guarded
[2025-01-03 12:28] LABS: Glucose,Whole Blood 113 mg/dL (70-110)
[2025-01-03] MEDS: rifAMPin 300 MG CAP PO SCH (12:30)
--- NOTE | 2025-01-03 13:44 | P.PN ---
Subjective Progress Note Date: 01/03/25 HISTORY OF PRESENT ILLNESS: This is a 44-year-old male patient of Dr. Martines with past medical history of end-stage renal disease on hemodialysis, hypertension, history of cardiac arrest secondary to hypoxic event and also cardiac arrest on induction of anesthesia, recent treatment for bacteremia, dilated cardiomyopathy with EF 40%, chronic systolic heart failure, tricuspid regurgitation, diabetes reversed with diet. We have been asked to evaluate patient for CAD. Patient has history of bacteremia with previous workup including ISIDORO that was negative for vegetation. Patient has been on IV antibiotics and managed by Dr. Guillen. He apparently completed a 6-week course of IV antibiotics but patient states that the dialysis center has been checking blood cultures which are now positive with MRSA and thus he was admitted to the hospital and started on vancomycin. Patient states that his right IJ tunnel catheter was removed and on Friday he is expected to have access replaced. Vascular surgery is following for this. Patient currently denies any chest pain, no shortness of breath, no lightheadedness or dizziness. Blood pressure 147/91, heart rate in the 70s, pulse ox 97% on room air. Patient is seen today in the emergency center waiting for a bed on the cardiac stepdown unit. -EKG: Sinus rhythm with nonspecific ST-T wave changes. -Chest x-ray: -Laboratory studies: WBC 6.6, hemoglobin 8.4, sodium 131, potassium 4.1, BUN 26 and creatinine 5.4. -Home cardiac medications: Amlodipine 10 mg at bedtime, aspirin 81 mg daily, Coreg 50 mg twice daily, clonidine patch every Friday 0.3 mg, hydralazine 50 mg 3 times daily, Isordil 10 mg 3 times daily, midodrine as needed, Nitrostat as n eeded, Demadex 40 mg daily. -Cardiac catheterization performed on 12/28/[address] Cole: 100% mid LAD in- stent stenosis appears to be VIDEOGRAPHER, moderate to severe disease in diagonal 1, OM1, OM 2, OM 3, PDA and PL branches, moderate diffuse nonobstructive disease in the RCA. Moderate to severe mitral regurgitation. Mild pulmonary hypertension. Recommendations for viability testing before performing in-stent VIDEOGRAPHER of LAD. Moderate to severe to diffuse disease and branch vessel does not seem amenable to intervention. Optimize heart failure medications and recommend Entresto and uptitrating beta-jamarcus if tolerated. -Echocardiogram performed 10/26/2024 reveals EF of 30 to 35%, moderate concentric LVH, atypical septal motion, anterior septal wall hypokinesia, RVSP 65, severe TR, moderate pulmonary regurgitation, mild mitral regurgitation. -ISIDORO performed 10/28/2024 revealed no evidence of infective endocarditis. EF 40 to 45%, mild concentric LVH. Moderate pulmonary hypertension with RVSP 50 mmHg. Severe RA dilatation and mild LA dilatation. 12/31 Patient seen and examined on the cardiac stepdown unit. Patient's blood pressure readings have been elevated. 175/96, heart rate 68, pulse ox 94% on room air. Repeat blood work reveals sodium 133, potassium 4.5, BUN 33 creatinine 6.87. 01/01/2025 Patient examined this morning at the bedside. Patient currently denies chest pain or pressure. He denies shortness of breath. Blood pressure has improved today with a systolic in the 140s. Blood cultures from 12/29/2024 revealed presumptive MRSA. Infectious diseases following. 01/02/2025 Patient examined this morning at bedside. Patient currently denies chest pain or pressure. Patient denies shortness of breath. Blood cultures obtained are negative at the 24-hour jh. 01/03 Patient is followed closely by ID and continues to have bacteremia with positive blood cultures. No further cardiac workup is planned at this time. Blood pressure 120/65, heart rate 67, pulse ox 99% on room air. PHYSICAL EXAM: VITAL SIGNS: Reviewed. GENERAL: Well-developed in no acute distress. NECK: Supple. No JVD or thyromegaly LUNGS: Respirations even and unlabored. Lungs essentially clear to auscultation bilaterally. HEART: Regular rate and rhythm. S1 and S2 heard.Systolic murmur at the apex. EXTREMITIES: Normal range of motion. No clubbing or cyanosis. Peripheral pulses intact. No lower extremity edema ASSESSMENT: Coronary artery disease with cardiac catheterization performed 12/28 and plan for viability testing before performing in-stent VIDEOGRAPHER of the LAD Ischemic versus dilated cardiomyopathy with EF of 40% Chronic systolic heart failure MRSA bacteremia status post removal of right IJ tunnel catheter as possible source End-stage renal disease on hemodialysis Hypertension History of previous cardiac arrest secondary to hypoxia and second episode in the setting of anesthesia induction PLAN: Continue current cardiac medications including amlodipine, aspirin, carvedilol, hydralazine, Isordil, and Demadex Patient to follow-up in the office with Dr. Cole 2 to 3 weeks after discharge with plan for viability testing of the in-stent VIDEOGRAPHER of LAD. No further cardiac workup at this time Cardiology will sign off this case and follow on an as-needed basis. Please reconsult for any new concerns. Nurse practitioner note has been reviewed by physician. Signing provider agrees with the documented findings, assessment, and plan of care documented by FUEL OIL CLERK as a scribe. Objective - Vital Signs Vital signs: Vital Signs Temp 98.2 F 01/03/25 06:45 Pulse 67 01/03/25 06:45 Resp 16 01/03/25 06:45 BP 120/65 01/03/25 06:45 Pulse Ox 99 01/03/25 06:45 FiO2 Intake & Output 01/02/25 01/03/25 01/03/25 18:59 06:59 18:59 Weight 42 kg 83.6 kg Other: Voiding Method Toilet Toilet Urinal Urinal # Voids 3 - Labs CBC & Chem 7: 01/01/25 06:35 01/03/25 02:34 Labs: Abnormal Lab Results - Last 24 Hours (Table) 01/02/25 01/02/25 01/03/25 Range/Units 16:40 20:50 02:34 Anion Gap 12.30 H (4.00-12.00) mmol/L BUN 55.8 H (9.0-27.0) mg/dL Creatinine 9.7 H (0.6-1.5) mg/dL Est GFR (CKD-EPI) 6 L (>=60) BUN/Creatinine Ratio 5.75 L (12.00-20.00) Ratio Glucose 127 H (70-110) mg/dL POC Glucose (mg/dL) 154 H 203 H (70-110) mg/dL 01/03/25 01/03/25 Range/Units 06:11 12:26 Anion Gap (4.00-12.00) mmol/L BUN (9.0-27.0) mg/dL Creatinine (0.6-1.5) mg/dL Est GFR (CKD-EPI) (>=60) BUN/Creatinine Ratio (12.00-20.00) Ratio Glucose (70-110) mg/dL POC Glucose (mg/dL) 175 H 113 H (70-110) mg/dL Microbiology - Last 24 Hours (Table) 12/29/24 12:00 Blood Culture Gram Stain - Final Blood Blood Culture - Final Methicillin resist S. aureus Vanco Intermediate S. aureus 12/29/24 11:56 Blood Culture Gram Stain - Final Blood Blood Culture - Final Vanco Intermediate S. aureus Methicillin resist S. aureus Molecular ID 01/01/25 10:02 Blood Culture Gram Stain - Preliminary Blood Blood Culture - Preliminary Presumptive MRSA 12/31/24 11:13 Blood Culture - Preliminary Blood
--- NOTE | 2025-01-03 15:50 | P.PN ---
Subjective Patient is seen for follow-up for end-stage renal disease. Dialysis catheter was removed on 12/29/2024. Last dialysis was on 12/29/2024 Blood cultures from 01/01/2025 are still positive. No complaints of shortness of breath. Potassium is 4.7 today. Objective - Vital Signs Vital signs: Vital Signs Temp 98.2 F 01/03/25 06:45 Pulse 67 01/03/25 06:45 Resp 16 01/03/25 06:45 BP 120/65 01/03/25 06:45 Pulse Ox 99 01/03/25 06:45 FiO2 Intake & Output 01/02/25 01/03/25 01/03/25 18:59 06:59 18:59 Weight 42 kg 83.6 kg Other: Voiding Method Toilet Toilet Toilet Urinal Urinal Urinal # Voids 3 - Exam Patient is awake, comfortable, no acute distress. Examination of the heart S1 and S2 Examination of the lungs bilateral breath sounds are heard Abdomen is soft nontender Examination of lower extremities shows no evidence of edema. No erythema or tenderness noted in the right upper extremity. HEAD PORTER BAGGAGE exam grossly intact - Labs CBC & Chem 7: 01/01/25 06:35 01/03/25 02:34 Labs: Abnormal Lab Results - Last 24 Hours (Table) 01/02/25 01/02/25 01/03/25 Range/Units 16:40 20:50 02:34 Anion Gap 12.30 H (4.00-12.00) mmol/L BUN 55.8 H (9.0-27.0) mg/dL Creatinine 9.7 H (0.6-1.5) mg/dL Est GFR (CKD-EPI) 6 L (>=60) BUN/Creatinine Ratio 5.75 L (12.00-20.00) Ratio Glucose 127 H (70-110) mg/dL POC Glucose (mg/dL) 154 H 203 H (70-110) mg/dL 01/03/25 01/03/25 Range/Units 06:11 12:26 Anion Gap (4.00-12.00) mmol/L BUN (9.0-27.0) mg/dL Creatinine (0.6-1.5) mg/dL Est GFR (CKD-EPI) (>=60) BUN/Creatinine Ratio (12.00-20.00) Ratio Glucose (70-110) mg/dL POC Glucose (mg/dL) 175 H 113 H (70-110) mg/dL Microbiology - Last 24 Hours (Table) 12/29/24 12:00 Blood Culture Gram Stain - Final Blood Blood Culture - Final Methicillin resist S. aureus Vanco Intermediate S. aureus 12/29/24 11:56 Blood Culture Gram Stain - Final Blood Blood Culture - Final Vanco Intermediate S. aureus Methicillin resist S. aureus Molecular ID 01/01/25 10:02 Blood Culture Gram Stain - Preliminary Blood Blood Culture - Preliminary Presumptive MRSA 12/31/24 11:13 Blood Culture - Preliminary Blood Assessment and Plan Assessment: 1. End-stage renal disease maintained on hemodialysis on Friday schedule via permacath. 2. MRSA bacteremia. AV graft excised earlier this year due to bacteremia. Now concerning that permacath may be the source for infection. Blood cultures positive this admission as well. No abscess noted on CT of the upper extremity. 3. Anemia of chronic kidney disease. On Ara. 4. Hypertension with chronic kidney disease. Plan: No acute indication for dialysis today. Repeat labs in a.m. and follow-up on blood cultures. Follow-up on WBC scan from today. Patient may need temporary dialysis catheter if he continues to have positive blood cultures.
--- NOTE | 2025-01-03 16:39 | NM ---
EXAMINATION TYPE: NM WBC whole body DATE OF EXAM: 01/03/2025 COMPARISON: NONE CLINICAL INDICATION: Male, 44 years old with history of bacteremia , source; TECHNIQUE: Following administration of 12.69 mCi Tc99m Ceretec. Images obtained 3 hours post inject ion. FINDINGS: Normal physiological tracer activity is noted in the liver and spleen and in the bone marrow of the a xial and appendicular skeleton. IMPRESSION: Normal white blood cell scan. No evidence for abnormal tracer activity. [facility], , 01/03/2025 4:36 PM
[2025-01-03 17:05] LABS: Glucose,Whole Blood 188 mg/dL (70-110)
--- NOTE | 2025-01-03 17:35 | P.PN ---
Subjective Progress Note Date: 01/03/25 Principal diagnosis: Reason for follow-up is MRSA bacteremia Patient is a 44-year-old -[place] male with a past medical history significant for end-stage renal disease on dialysis he recently did have a prolonged hospital stay with MRSA bacteremia related to the right upper extremity infected graft which was subsequently discontinued and complete 6-week course of IV antibiotics presented back to the hospital with bacteremia concern for possible catheter related which has been discontinued. On today's evaluation that is 01/03/2025, patient has been afebrile, patient is breathing comfortably and is currently on room air, patient denies having any significant cough no chest pain, patient denies nausea vomiting or diarrhea and no abdominal pain. Patient did have a creatinine of 9.7, blood culture from 12/31/2024 negative by 01/01/2025 came back positive, WBC scan reported negative Objective - Vital Signs Vital signs: Vital Signs Temp 97.6 F 01/03/25 14:00 Pulse 63 01/03/25 14:00 Resp 17 01/03/25 14:00 BP 138/80 01/03/25 14:00 Pulse Ox 100 01/03/25 14:00 FiO2 Intake & Output 01/02/25 01/03/25 01/03/25 18:59 06:59 18:59 Weight 42 kg 83.6 kg Other: Voiding Method Toilet Toilet Toilet Urinal Urinal Urinal # Voids 3 1 - Exam GENERAL DESCRIPTION: Middle-age male lying in bed in no distress RESPIRATORY SYSTEM: Unlabored breathing , decreased breath sounds at bases HEART: S1 S2 regular rate and rhythm , ABDOMEN: Soft , no tenderness EXTREMITIES: No edema feet - Labs CBC & Chem 7: 01/01/25 06:35 01/03/25 02:34 Labs: Abnormal Lab Results - Last 24 Hours (Table) 01/02/25 01/03/25 01/03/25 Range/Units 20:50 02:34 06:11 Anion Gap 12.30 H (4.00-12.00) mmol/L BUN 55.8 H (9.0-27.0) mg/dL Creatinine 9.7 H (0.6-1.5) mg/dL Est GFR (CKD-EPI) 6 L (>=60) BUN/Creatinine Ratio 5.75 L (12.00-20.00) Ratio Glucose 127 H (70-110) mg/dL POC Glucose (mg/dL) 203 H 175 H (70-110) mg/dL 01/03/25 01/03/25 Range/Units 12:26 17:04 Anion Gap (4.00-12.00) mmol/L BUN (9.0-27.0) mg/dL Creatinine (0.6-1.5) mg/dL Est GFR (CKD-EPI) (>=60) BUN/Creatinine Ratio (12.00-20.00) Ratio Glucose (70-110) mg/dL POC Glucose (mg/dL) 113 H 188 H (70-110) mg/dL Microbiology - Last 24 Hours (Table) 12/31/24 11:13 Blood Culture - Preliminary Blood 12/29/24 12:00 Blood Culture Gram Stain - Final Blood Blood Culture - Final Methicillin resist S. aureus Vanco Intermediate S. aureus 12/29/24 11:56 Blood Culture Gram Stain - Final Blood Blood Culture - Final Vanco Intermediate S. aureus Methicillin resist S. aureus Molecular ID 01/01/25 10:02 Blood Culture Gram Stain - Preliminary Blood Blood Culture - Preliminary Presumptive MRSA Assessment and Plan (1) Bacteremia due to methicillin resistant Staphylococcus aureus Current Visit: Yes Status: Acute Code(s): R78.81 - BACTEREMIA; B95.62 - METHICILLIN RESIS STAPH INFCT [facility] Code[facility]s): 59966101857800916 Plan: 1patient being admitted to the hospital after he was noted to have a positive blood culture in outpatient setting 2021 positive for MRSA as per discussion with nephrology in this patient who did have a complicated course with infected right upper extremity graft which was subsequently discontinued and the patient received almost 6 weeks of IV daptomycin from the negative blood culture and also have extensive workup on his last admission including a ISIDORO that was negative for any vegetation and WBC scan was negative, no possible source for bacteremia could be related to the tunneled dialysis catheter has no other obvious focus of infection 2-vascular surgery seen the patient catheter has been discontinued 3-s patient did have CT of the right upper extremity with contrast which was reviewed with radiologist there is a clip at the right upper end question of any focus of infection 4-patient culture has been repeated 12/31/2024 and so far negative however the blood culture from 01/01/2025 came back positive blood culture repeat has been requested to document clearance of bacteremia WBC scan has been negative, the likely etiology for recurrence of this bacteremia could be the vascular CLIP placed at the time of removal of the graft in an infected environment and would likely need removal in order to completely cure of this infection this has been explained in detail to the patient will discussed with vascular surgery for now continue with the vancomycin Dictation was produced using [employer] dictation software. please excuse any grammatical, word or spelling errors. Time with Patient: Less than 30
[2025-01-03] MEDS: CHOLESTYRAMINE (WITH SUGAR) 4 GM PACKET PO ONE (19:53)
[2025-01-03 21:20] LABS: Glucose,Whole Blood 208 mg/dL (70-110)
[2025-01-04 06:31] LABS: Glucose,Whole Blood 144 mg/dL (70-110)
--- NOTE | 2025-01-04 11:20 | P.PN ---
Subjective Progress Note Date: 01/04/25 Principal diagnosis: Bacteremia Patient is seen and examined today as a follow-up. He is sitting up at the bedside having breakfast. He is without any complaints. He is afebrile, denies any fevers, chills or bodyaches. No shortness of breath or chest pain. No abdominal pain nausea or vomiting. Repeat preliminary blood cultures positive for MRSA. No current labs from today. Patient had WBC scan of entire body with reported normal white blood cell scan. No evidence for abnormal tracer activity. Objective - Vital Signs Vital signs: Vital Signs Temp 98.5 F 01/04/25 07:20 Pulse 78 01/04/25 07:20 Resp 18 01/04/25 07:20 BP 141/85 01/04/25 07:20 Pulse Ox 96 01/04/25 07:20 FiO2 Intake & Output 01/03/25 01/04/25 01/04/25 18:59 06:59 18:59 Weight 83.6 kg Other: Voiding Method Toilet Toilet Urinal Urinal # Voids 3 1 - Exam General appearance: The patient is alert, oriented, appears in no acute distress. HET: Head is normocephalic and atraumatic. Neck: Supple. Chest: Right upper chest wall previous tunnel catheter site without any bleeding, drainage or redness. No swelling. Lungs: Equal expansion, normal respiratory effort. Abdomen: Soft, nondistended. Extremities: Normal skin color and turgor. Right upper extremity surgical incision healed. No swelling, erythema, tenderness or drainage. Palpable radial pulse. Neurological: Alert and oriented. - Labs CBC & Chem 7: 01/01/25 06:35 01/03/25 02:34 Labs: Abnormal Lab Results - Last 24 Hours (Table) 01/03/25 01/03/25 01/03/25 Range/Units 12:26 17:04 21:13 POC Glucose (mg/dL) 113 H 188 H 208 H (70-110) mg/dL 01/04/25 Range/Units 06:29 POC Glucose (mg/dL) 144 H (70-110) mg/dL Microbiology - Last 24 Hours (Table) 12/31/24 11:13 Blood Culture - Preliminary Blood 12/29/24 12:00 Blood Culture Gram Stain - Final Blood Blood Culture - Final Methicillin resist S. aureus Vanco Intermediate S. aureus 12/29/24 11:56 Blood Culture Gram Stain - Final Blood Blood Culture - Final Vanco Intermediate S. aureus Methicillin resist S. aureus Molecular ID 01/01/25 10:02 Blood Culture Gram Stain - Preliminary Blood Blood Culture - Preliminary Presumptive MRSA Assessment and Plan Assessment: 1. Persistent MRSA bacteremia 2. Right IJ tunnel catheter status post removal 3. End-stage renal disease on hemodialysis 4. Recent persistent MRSA bacteremia status post right upper extremity HD graft explantation and antibiotics 5. Coronary artery disease 6. Heart failure Plan: 1. Patient is post tunnel catheter removal 2. Continue with recommendations from infectious disease 3. Continue with recommendations from nephrology 4. Tagged WBC scan normal 5. Timing for dialysis access to be determined based on clearance of bacteremia 6. Rest of medical management per primary medical team Thank you for this consultation, we will follow along. The impression and plan of care has been dictated as directed. Dr. Moore I performed a history and examination of this patient, discussed the same with the dictator. I agree with the dictator's note ,documented as a scribe. Any additional findings or plans will be noted.
[2025-01-04 12:07] LABS: Glucose,Whole Blood 145 mg/dL (70-110)
[2025-01-04 14:51] LABS: ALT 28 U/L (4-49); AST 27 U/L (17-59); African American GFR (CKD) 5 (>60 ml/min/1.73 sqM); Albumin 3.2 g/dL (3.5-5.0); Albumin/Globulin Ratio 0.8; Alkaline Phosphatase 305 U/L (38-126); Anion Gap 10 mmol/L; Blood Urea Nitrogen 73 mg/dL (9-20); Calcium 8.9 mg/dL (8.4-10.2); Carbon Dioxide 25 mmol/L (22-30); Chloride 99 mmol/L (98-107); Globulin 3.9 g/dL; Glucose 116 mg/dL (74-99); Non-African American GFR(CKD) 5 (>60 ml/min/1.73 sqM); Potassium 5.3 mmol/L (3.5-5.1); Sodium 134 mmol/L (137-145); Total Bilirubin 0.9 mg/dL (0.2-1.3); Total Protein 7.1 g/dL (6.3-8.2)
[2025-01-04 15:05] LABS: Anisocytosis Slight; Basophils % (A) 0 %; Eosinophils # (A) 0.1 k/uL (0-0.7); Eosinophils % (A) 2 %; HCT 26.4 % (39.0-53.0); HGB 7.9 gm/dL (13.0-17.5); Hypochromasia Moderate; Lymphocytes # (A) 0.7 k/uL (1.0-4.8); Lymphocytes % (A) 14 %; MCH 31.2 pg (25.0-35.0); MCHC 29.8 g/dL (31.0-37.0); Macrocytosis Marked; Mean Platelet Volume 11.3; Monocytes # (A) 0.4 k/uL (0-1.0); Monocytes % (A) 7 %; Neutrophils # (A) 4.1 k/uL (1.3-7.7); Neutrophils % (A) 76 %; Platelet Count 186 k/uL (150-450); RBC 2.52 m/uL (4.30-5.90); RDW 18.7 % (11.5-15.5); WBC 5.4 k/uL (3.8-10.6)
--- NOTE | 2025-01-04 15:08 | P.PN ---
Subjective Progress Note Date: 01/04/25 44-year-old -[place] male came in because of MRSA bacteremia. Patient had a right upper extremity infected graft which was subsequently discontinued during his previous hospitalization because of persistent MRSA bacteremia. Patient had a ISIDORO at that time and other extensive workup including CT angio all of which are negative for endocarditis and lung abscess. Patient completed 6 weeks of antibiotic therapy after his first negative culture that was on 11/13/2024. Patient was admitted for cellulitis at the time cultures were obtained and they came back positive for MRSA patient denies any fever chills does not have any elevated white count. Patient is admitted for possible bacteremia with MRSA and concern for dialysis catheter infection which was subsequently removed yesterday. Repeat cultures are still pending and patient is presently on IV vancomycin. Patient denied any symptoms at this time 01/01/2025 1patient being admitted to the hospital after he was noted to have a positive blood culture in outpatient setting 2021 positive for MRSA as per discussion with nephrology in this patient who did have a complicated course with infected right upper extremity graft which was subsequently discontinued and the patient received almost 6 weeks of IV daptomycin from the negative blood culture and also have extensive workup on his last admission including a ISIDORO that was negative for any vegetation and WBC scan was negative, no possible source for bacteremia could be related to the tunneled dialysis catheter has no other obvious focus of infection 2-vascular surgery seen the patient catheter has been discontinued 3- patient did have r CT of the right upper extremity with contrast which was reviewed with radiologist there is a clip at the right upper end question of any focus of infection 4-patient culture has been repeated document clearance will also obtain an WBC scan continue with the vancomycin have multiple question concern answered01/01/2025 01/02/2025 Patient is seen and evaluated in room at bedside; discussed with nursing staff and no specific complaints reported Vital signs are stable temperature 98.4, pulse 70, respirations 17, blood pressure 163/86 Lab review shows WBC 6.0, hemoglobin 7.7 and platelet count of 162, sodium 135, potassium 4.7, BUN 53 with creatinine of 9.3 patient being admitted to the hospital after he was noted to have a positive blood culture in outpatient setting 2021 positive for MRSA as per discussion with nephrology in this patient who did have a complicated course with infected right upper extremity graft which was subsequently discontinued and the patient received almost 6 weeks of IV daptomycin from the negative blood culture and also have extensive workup on his last admission including a ISIDORO that was negative for any vegetation and WBC scan was negative, no possible source for bacteremia could be related to the tunneled dialysis catheter has no other obvious focus of infection -vascular surgery seen the patient catheter has been discontinued -patient did have CT of the right upper extremity with contrast which was reviewed with radiologist there is a clip at the right upper end question of any focus of infection -patient culture has been repeated 12/31/2024 and so far negative with the remains to be negative at 72-hour he is going to get a new permacatheter currently waiting for WBC scan continue with the vancomycin 01/03 This is a pleasant 44 years old -[place] male with a known case of hemodialysis and presents with bacteremia secondary to MRSA with history of ischemic cardiomyopathy. [place] source is infected dialysis catheter which was re moved Patient lying in bed states he feels better, however he is lethargic, slow to answer, does not look confused Denies any other specific complaints His right upper extremity is with minimal cellulitis, puncture wound from his right upper chest hemodialysis catheter which was removed. Looks okay with no surrounding cellulitis, no purulent discharge. Dressing is in place. Patient currently kept on IV vancomycin 01/04. Patient seen and examined. WBC scan done was normal. Denies any shortne ss of breath. Denies any chest pain. Vital signs stable. REVIEW OF SYSTEMS: CONSTITUTIONAL: No fever, no malaise,. CARDIOVASCULAR: No chest pain, no palpitations, no syncope. PULMONARY: No shortness of breath, no cough, GASTROINTESTINAL: No diarrhea, no nausea, no vomiting, no abdominal pain. NEUROLOGICAL: No headaches, no weakness, PHYSICAL EXAMINATION: GENERAL: The patient is alert and oriented x3, ill looking HEENT: Pupils are round and equally reacting to light. EOMI. No scleral icterus. No conjunctival pallor. Normocephalic, atraumatic. No pharyngeal erythema. No thyromegaly. CARDIOVASCULAR: S1 and S2 present. No murmurs, rubs, or gallops. PULMONARY: Chest is clear to auscultation, no wheezing or crackles. ABDOMEN: Soft, nontender, nondistended, normoactive bowel sounds. No palpable organomegaly. MUSCULOSKELETAL: No joint swelling or deformity. EXTREMITIES: No cyanosis, clubbing, or pedal edema. NEUROLOGICAL: Gross neurological examination did not reveal any focal deficits. SKIN: No rashes. Assessment and plan MRSA bacteremia concern for infected dialysis catheter which was removed and patient is on vancomycin which will be continued -End-stage renal disease patient received hemodialysis yesterday patient cannot get any dialysis catheter clearance of bacteremia as of now patient does not have any emergent dialysis need although patient is on vancomycin which we will continue -Hypertension -Anemia of chronic kidney disease -Hyperlipidemia -Coronary artery disease -Gastroesophageal reflux disease Monitor vital signs Monitor CBC Monitor CMP Follow-up on blood cultures continue IV vancomycin pharmacy to dose Continue aspirin, Coreg, Norvasc Continue clonidine patch Continue hydralazine Monitor blood sugar levels, continue current insulin regimen Nephro following ID following Vascular surgery following Labs and medication were reviewed.. Continue same treatment. Continue with symptomatic treatment. Resume home medication. Monitor labs and vitals. DVT and GI prophylaxis. Further recommendations as per clinical course of the patient Dictation was produced using [employer] dictation software. please excuse any gramm atical, word or spelling errors. Objective - Vital Signs Vital signs: Vital Signs Temp 98.5 F 01/04/25 07:20 Pulse 78 01/04/25 07:20 Resp 18 01/04/25 07:20 BP 141/85 01/04/25 07:20 Pulse Ox 96 01/04/25 07:20 FiO2 Intake & Output 01/03/25 01/04/25 01/04/25 18:59 06:59 18:59 Weight 83.6 kg Other: Voiding Method Toilet Toilet Urinal Urinal # Voids 3 1 - Labs CBC & Chem 7: 01/01/25 06:35 01/04/25 14:02 Labs: Abnormal Lab Results - Last 24 Hours (Table) 01/03/25 01/03/25 01/03/25 Range/Units 12:26 17:04 21:13 POC Glucose (mg/dL) 113 H 188 H 208 H (70-110) mg/dL 01/04/25 Range/Units 06:29 POC Glucose (mg/dL) 144 H (70-110) mg/dL Microbiology - Last 24 Hours (Table) 12/31/24 11:13 Blood Culture - Preliminary Blood 12/29/24 12:00 Blood Culture Gram Stain - Final Blood Blood Culture - Final Methicillin resist S. aureus Vanco Intermediate S. aureus 12/29/24 11:56 Blood Culture Gram Stain - Final Blood Blood Culture - Final Vanco Intermediate S. aureus Methicillin resist S. aureus Molecular ID 01/01/25 10:02 Blood Culture Gram Stain - Preliminary Blood Blood Culture - Preliminary Presumptive MRSA
[2025-01-04 15:11] LABS: MCV 104.6 fL (80.0-100.0)
[2025-01-04 15:52] LABS: Large Platelets Present; Polychromasia Present
[2025-01-04 15:53] LABS: Target Cells Present
[2025-01-04 17:07] LABS: Glucose,Whole Blood 136 mg/dL (70-110)
--- NOTE | 2025-01-04 17:34 | P.PN ---
Subjective Patient is seen for follow-up for end-stage renal disease. Dialysis catheter was removed on 12/29/2024. Last dialysis was on 12/29/2024 Blood cultures from 01/01/2025 are still positive. No complaints of shortness of breath. Labs are pending from today Objective - Vital Signs Vital signs: Vital Signs Temp 98.0 F 01/04/25 14:00 Pulse 69 01/04/25 14:00 Resp 18 01/04/25 14:00 BP 136/73 01/04/25 14:00 Pulse Ox 100 01/04/25 14:00 FiO2 Intake & Output 01/03/25 01/04/25 01/04/25 18:59 06:59 18:59 Weight 83.6 kg Other: Voiding Method Toilet Toilet Urinal Urinal # Voids 3 1 2 - Exam Patient is awake, comfortable, no acute distress. Examination of the heart S1 and S2 Examination of the lungs bilateral breath sounds are heard Abdomen is soft nontender Examination of lower extremities shows no evidence of edema. No erythema or tenderness noted in the right upper extremity. OUTCOMES SPECIALIST exam grossly intact - Labs CBC & Chem 7: 01/04/25 14:02 01/04/25 14:02 Labs: Abnormal Lab Results - Last 24 Hours (Table) 01/03/25 01/04/25 01/04/25 Range/Units 21:13 06:29 12:05 RBC (4.30-5.90) m/uL Hgb (13.0-17.5) gm/dL Hct (39.0-53.0) % MCV (80.0-100.0) fL MCHC (31.0-37.0) g/dL RDW (11.5-15.5) % Lymphocytes # (1.0-4.8) k/uL Macrocytosis Sodium (137-145) mmol/L Potassium (3.5-5.1) mmol/L BUN (9-20) mg/dL Creatinine (0.66-1.25) mg/dL Glucose (74-99) mg/dL POC Glucose (mg/dL) 208 H 144 H 145 H (70-110) mg/dL Alkaline Phosphatase (38-126) U/L Albumin (3.5-5.0) g/dL 01/04/25 01/04/25 01/04/25 Range/Units 14:02 14:02 17:05 RBC 2.52 L (4.30-5.90) m/uL Hgb 7.9 L (13.0-17.5) gm/dL Hct 26.4 L (39.0-53.0) % MCV 104.6 H D (80.0-100.0) fL MCHC 29.8 L (31.0-37.0) g/dL RDW 18.7 H (11.5-15.5) % Lymphocytes # 0.7 L (1.0-4.8) k/uL Macrocytosis Marked A Sodium 134 L (137-145) mmol/L Potassium 5.3 H (3.5-5.1) mmol/L BUN 73 H (9-20) mg/dL Creatinine 11.67 H* (0.66-1.25) mg/dL Glucose 116 H (74-99) mg/dL POC Glucose (mg/dL) 136 H (70-110) mg/dL Alkaline Phosphatase 305 H (38-126) U/L Albumin 3.2 L (3.5-5.0) g/dL Microbiology - Last 24 Hours (Table) 01/03/25 12:15 Blood Culture - Preliminary Blood 01/01/25 10:02 Blood Culture Gram Stain - Final Blood Blood Culture - Final Vanco Intermediate S. aureus 12/31/24 11:13 Blood Culture - Preliminary Blood Assessment and Plan Assessment: 1. End-stage renal disease maintained on hemodialysis on Friday schedule via permacath. 2. MRSA bacteremia. AV graft excised earlier this year due to bacteremia. Now concerning that permacath may be the source for infection. Blood cultures positive this admission as well. No abscess noted on CT of the upper extremity. There is a clip that was noted on CT scan which may be the source of persistent bacteremia. 3. Anemia of chronic kidney disease. On Aranesp. 4. Hypertension with chronic kidney disease. Plan: Follow-up on labs from today Repeat labs in a.m. and follow-up on repeat blood cultures. Patient may need temporary dialysis catheter if he continues to have positive blood cultures.
[2025-01-04 20:28] LABS: Glucose,Whole Blood 88 mg/dL (70-110)
--- NOTE | 2025-01-04 23:02 | P.PN ---
Subjective Progress Note Date: 01/04/25 Principal diagnosis: Reason for follow-up is MRSA bacteremia Patient is a 44-year-old -[place] male with a past medical history significant for end-stage renal disease on dialysis he recently did have a prolonged hospital stay with MRSA bacteremia related to the right upper extremity infected graft which was subsequently discontinued and complete 6-week course of IV antibiotics presented back to the hospital with bacteremia concern for possible catheter related which has been discontinued. On today's evaluation that is 01/04/2025, Patient is afebrile this morning p atient denies having any chest pain shortness of breath or cough, the patient is currently on room air, patient denies any abdominal pain no diarrhea no nausea no vomiting. No new lab has been obtained today, blood culture from 01/03/2025 currently pending Objective - Vital Signs Vital signs: Vital Signs Temp 98.5 F 01/04/25 07:20 Pulse 78 01/04/25 07:20 Resp 18 01/04/25 07:20 BP 141/85 01/04/25 07:20 Pulse Ox 96 01/04/25 07:20 FiO2 Intake & Output 01/03/25 01/04/25 01/04/25 18:59 06:59 18:59 Weight 83.6 kg Other: Voiding Method Toilet Toilet Urinal Urinal # Voids 3 1 2 - Exam GENERAL DESCRIPTION: Middle-age male lying in bed in no distress RESPIRATORY SYSTEM: Unlabored breathing , decreased breath sounds at bases HEART: S1 S2 regular rate and rhythm , ABDOMEN: Soft , no tenderness EXTREMITIES: No edema feet - Labs CBC & Chem 7: 01/01/25 06:35 01/03/25 02:34 Labs: Abnormal Lab Results - Last 24 Hours (Table) 01/03/25 01/03/25 01/04/25 Range/Units 17:04 21:13 06:29 POC Glucose (mg/dL) 188 H 208 H 144 H (70-110) mg/dL 01/04/25 Range/Units 12:05 POC Glucose (mg/dL) 145 H (70-110) mg/dL Microbiology - Last 24 Hours (Table) 12/31/24 11:13 Blood Culture - Preliminary Blood 12/29/24 12:00 Blood Culture Gram Stain - Final Blood Blood Culture - Final Methicillin resist S. aureus Vanco Intermediate S. aureus 12/29/24 11:56 Blood Culture Gram Stain - Final Blood Blood Culture - Final Vanco Intermediate S. aureus Methicillin resist S. aureus Molecular ID Assessment and Plan (1) Bacteremia due to methicillin resistant Staphylococcus aureus Current Visit: Yes Status: Acute Code(s): R78.81 - BACTEREMIA; B95.62 - METHICILLIN RESIS STAPH INFCT CAUSING DISEASES CLASSD [id number] SNOMED Code(s): 51271162623019649 Plan: 1patient being admitted to the hospital after he was noted to have a positive blood culture in outpatient setting 2021 positive for MRSA as per discussion with nephrology in this patient who did have a complicated course with infected right upper extremity graft which was subsequently discontinued and the patient received almost 6 weeks of IV daptomycin from the negative blood culture and also have extensive workup on his last admission including a ISIDORO that was neg ative for any vegetation and WBC scan was negative, no possible source for bacteremia could be related to the tunneled dialysis catheter has no other obvious focus of infection 2-vascular surgery seen the patient catheter has been discontinued 3-s patient did have CT of the right upper extremity with contrast which was reviewed with radiologist there is a clip at the right upper end question of any focus of infection 4-patient culture has been repeated 12/31/2024 and so far negative however the blood culture from 01/01/2025 came back positive blood culture, blood culture has been repeated on 01/03/2025 so far pending WBC scan was negative high clinical suspicion for possible infected vascular clip in the right upper arm placed at the time of removal of the infected graft could be the source of this recurrent bacteremia and will benefit from removal of the same detail discussion with the patient and the at the bedside as well as with vascular surgery Dictation was produced using [employer]. dictation software. please excuse any grammatical, word or spelling errors.
[2025-01-05 06:21] LABS: Glucose,Whole Blood 108 mg/dL (70-110)
[2025-01-05 08:00] VITALS: BMI 25.0
[2025-01-05 08:50] LABS: ALT 25 U/L (4-49); AST 27 U/L (17-59); African American GFR (CKD) 5 (>60 ml/min/1.73 sqM); Albumin 3.2 g/dL (3.5-5.0); Albumin/Globulin Ratio 0.8; Alkaline Phosphatase 265 U/L (38-126); Anion Gap 14 mmol/L; Blood Urea Nitrogen 84 mg/dL (9-20); Calcium 9.3 mg/dL (8.4-10.2); Carbon Dioxide 21 mmol/L (22-30); Chloride 99 mmol/L (98-107); Globulin 3.8 g/dL; Glucose 76 mg/dL (74-99); Non-African American GFR(CKD) 5 (>60 ml/min/1.73 sqM); Potassium 5.8 mmol/L (3.5-5.1); Sodium 134 mmol/L (137-145); Total Bilirubin 1.1 mg/dL (0.2-1.3)
[2025-01-05 08:55] LABS: Vancomycin,Random 19.1 ug/mL
[2025-01-05 10:32] LABS: Basophils # (A) 0.05 X 10*3/uL (0.00-0.10); Eosinophils # (A) 0.08 X 10*3/uL (0.04-0.35); Eosinophils % (A) 1.6 %; HCT 22.8 % (39.6-50.0); HGB 7.4 g/dL (13.0-17.0); Lymphocytes # (A) 0.82 X 10*3/uL (0.90-5.00); MCH 31.9 pg (27.0-32.0); MCHC 32.5 g/dL (32.0-37.0); MCV 98.3 FL (80.0-97.0); Mean Platelet Volume 13.4 FL (9.5-12.2); Monocytes # (A) 0.55 X 10*3/uL (0.20-1.00); Monocytes % (A) 10.7 %; NRBC Per 100 WBC 0 X 10*3/uL (0.00-0.01); Neutrophils # (A) 3.62 X 10*3/uL (1.80-7.70); Neutrophils % (A) 70.5 %; Platelet Count 156 X 10*3/uL (140-440); RBC 2.32 X 10*6/uL (4.40-5.60); RDW 19.9 % (11.5-14.5); WBC 5.13 X 10*3/uL (4.50-10.00)
--- NOTE | 2025-01-05 11:05 | P.PN ---
Subjective Progress Note Date: 01/05/25 Principal diagnosis: Bacteremia Patient is seen and examined today as a follow-up. He states he is feeling well. No complaints fevers, chills, body aches. Denies any shortness of breath, chest pain, abdominal pain, nausea or vomiting. He remains afebrile. Blood cultures now coming back vancomycin intermediate staff aureus. Today's labs show sodium 134 potassium 5.8 BUN 84 and creatinine 11.8. Nephrology is requesting temporary HD catheter placement for hemodialysis today. Objective - Vital Signs Vital signs: Vital Signs Temp 97.6 F 01/05/25 07:17 Pulse 69 01/05/25 07:17 Resp 18 01/05/25 07:17 BP 156/84 01/05/25 07:17 Pulse Ox 98 01/05/25 07:17 FiO2 Intake & Output 01/04/25 01/05/25 01/05/25 18:59 06:59 18:59 Weight 83.6 kg Other: Voiding Method Toilet Urinal # Voids 2 2 - Exam General appearance: The patient is alert, oriented, appears in no acute distress. HET: Head is normocephalic and atraumatic. Neck: Supple. Chest: Right upper chest wall previous tunnel catheter site without any bleedi ng, drainage or redness. No swelling. Lungs: Equal expansion, normal respiratory effort. Abdomen: Soft, nondistended. Extremities: Normal skin color and turgor. Right upper extremity surgical incision healed. No swelling, erythema, tenderness or drainage. Palpable radial pulse. Neurological: Alert and oriented. - Labs CBC & Chem 7: 01/05/25 07:06 01/05/25 07:06 Labs: Abnormal Lab Results - Last 24 Hours (Table) 01/04/25 01/04/25 01/04/25 Range/Units 12:05 14:02 14:02 RBC 2.52 L (4.30-5.90) m/uL Hgb 7.9 L (13.0-17.5) gm/dL Hct 26.4 L (39.0-53.0) % MCV 104.6 H D (80.0-100.0) fL MCHC 29.8 L (31.0-37.0) g/dL RDW 18.7 H (11.5-15.5) % MPV (9.5-12.2) FL Lymphocytes # 0.7 L (1.0-4.8) k/uL Macrocytosis Marked A Sodium 134 L (137-145) mmol/L Potassium 5.3 H (3.5-5.1) mmol/L Carbon Dioxide (22-30) mmol/L BUN 73 H (9-20) mg/dL Creatinine 11.67 H* (0.66-1.25) mg/dL Glucose 116 H (74-99) mg/dL POC Glucose (mg/dL) 145 H (70-110) mg/dL Alkaline Phosphatase 305 H (38-126) U/L Albumin 3.2 L (3.5-5.0) g/dL 01/04/25 01/05/25 01/05/25 Range/Units 17:05 07:06 07:06 RBC 2.32 L (4.30-5.90) m/uL Hgb 7.4 L (13.0-17.5) gm/dL Hct 22.8 L (39.0-53.0) % MCV 98.3 H (80.0-100.0) fL MCHC (31.0-37.0) g/dL RDW 19.9 H (11.5-15.5) % MPV 13.4 H (9.5-12.2) FL Lymphocytes # 0.82 L (1.0-4.8) k/uL Macrocytosis Sodium 134 L (137-145) mmol/L Potassium 5.8 H (3.5-5.1) mmol/L Carbon Dioxide 21 L (22-30) mmol/L BUN 84 H (9-20) mg/dL Creatinine 11.80 H* (0.66-1.25) mg/dL Glucose (74-99) mg/dL POC Glucose (mg/dL) 136 H (70-110) mg/dL Alkaline Phosphatase 265 H (38-126) U/L Albumin 3.2 L (3.5-5.0) g/dL Microbiology - Last 24 Hours (Table) 01/03/25 12:15 Blood Culture - Preliminary Blood 01/01/25 10:02 Blood Culture Gram Stain - Final Blood Blood Culture - Final Vanco Intermediate S. aureus Assessment and Plan Assessment: 1. Persistent MRSA bacteremia 2. Right IJ tunnel catheter status post removal 3. End-stage renal disease on hemodialysis 4. Recent persistent MRSA bacteremia status post right upper extremity HD graft explantation and antibiotics 5. Coronary artery disease 6. Heart failure Plan: 1. Patient is post tunnel catheter removal 2. Continue with recommendations from infectious disease 3. Hemodialysis per recommendations from nephrology 4. Tagged WBC scan normal 5. Will plan for temporary HD catheter placement today Patient's case discussed between infectious disease, primary medical team, and vascular surgery. At this time vascular surgery room recommends consideration for transfer to tertiary center for second opinion and further evaluation into recurrent bacteremia. Not likely secondary to clips from removal of dialysis graft. This has also been discussed with the patient. Patient seems willing and acceptable to transfer to tertiary center. Thank you for this consultation, we will follow along. The impression and plan of care has been dictated as directed. Dr. Larios I performed a history and examination of this patient, discussed the same with the dictator. I agree with the dictator's note ,documented as a scribe. Any additional findings or plans will be noted.
[2025-01-05 11:06] LABS: Glucose,Whole Blood 145 mg/dL (70-110)
--- NOTE | 2025-01-05 11:18 | P.PN ---
Subjective Patient is seen for follow-up for end-stage renal disease. Dialysis catheter was removed on 12/29/2024. Last dialysis was on 12/29/2024 Blood cultures from 01/03/2025 are negative so far No complaints of shortness of breath. Potassium is elevated at 5.8 Objective - Vital Signs Vital signs: Vital Signs Temp 97.6 F 01/05/25 07:17 Pulse 69 01/05/25 07:17 Resp 18 01/05/25 07:17 BP 156/84 01/05/25 07:17 Pulse Ox 98 01/05/25 07:17 FiO2 Intake & Output 01/04/25 01/05/25 01/05/25 18:59 06:59 18:59 Weight 83.6 kg Other: Voiding Method Toilet Urinal # Voids 2 2 - Exam Patient is awake, comfortable, no acute distress. Examination of the heart S1 and S2 Examination of the lungs bilateral breath sounds are heard Abdomen is soft nontender Examination of lower extremities shows no evidence of edema. No erythema or tenderness noted in the right upper extremity. 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 - Labs CBC & Chem 7: 01/05/25 07:06 01/05/25 07:06 Labs: Abnormal Lab Results - Last 24 Hours (Table) 01/04/25 01/04/25 01/04/25 Range/Units 12:05 14:02 14:02 RBC 2.52 L (4.30-5.90) m/uL Hgb 7.9 L (13.0-17.5) gm/dL Hct 26.4 L (39.0-53.0) % MCV 104.6 H D (80.0-100.0) fL MCHC 29.8 L (31.0-37.0) g/dL RDW 18.7 H (11.5-15.5) % MPV (9.5-12.2) FL Lymphocytes # 0.7 L (1.0-4.8) k/uL Macrocytosis Marked A Sodium 134 L (137-145) mmol/L Potassium 5.3 H (3.5-5.1) mmol/L Carbon Dioxide (22-30) mmol/L BUN 73 H (9-20) mg/dL Creatinine 11.67 H* (0.66-1.25) mg/dL Glucose 116 H (74-99) mg/dL POC Glucose (mg/dL) 145 H (70-110) mg/dL Alkaline Phosphatase 305 H (38-126) U/L Albumin 3.2 L (3.5-5.0) g/dL 01/04/25 01/05/25 01/05/25 Range/Units 17:05 07:06 07:06 RBC 2.32 L (4.30-5.90) m/uL Hgb 7.4 L (13.0-17.5) gm/dL Hct 22.8 L (39.0-53.0) % MCV 98.3 H (80.0-100.0) fL MCHC (31.0-37.0) g/dL RDW 19.9 H (11.5-15.5) % MPV 13.4 H (9.5-12.2) FL Lymphocytes # 0.82 L (1.0-4.8) k/uL Macrocytosis Sodium 134 L (137-145) mmol/L Potassium 5.8 H (3.5-5.1) mmol/L Carbon Dioxide 21 L (22-30) mmol/L BUN 84 H (9-20) mg/dL Creatinine 11.80 H* (0.66-1.25) mg/dL Glucose (74-99) mg/dL POC Glucose (mg/dL) 136 H (70-110) mg/dL Alkaline Phosphatase 265 H (38-126) U/L Albumin 3.2 L (3.5-5.0) g/dL 01/05/25 Range/Units 11:04 RBC (4.30-5.90) m/uL Hgb (13.0-17.5) gm/dL Hct (39.0-53.0) % MCV (80.0-100.0) fL MCHC (31.0-37.0) g/dL RDW (11.5-15.5) % MPV (9.5-12.2) FL Lymphocytes # (1.0-4.8) k/uL Macrocytosis Sodium (137-145) mmol/L Potassium (3.5-5.1) mmol/L Carbon Dioxide (22-30) mmol/L BUN (9-20) mg/dL Creatinine (0.66-1.25) mg/dL Glucose (74-99) mg/dL POC Glucose (mg/dL) 145 H (70-110) mg/dL Alkaline Phosphatase (38-126) U/L Albumin (3.5-5.0) g/dL Microbiology - Last 24 Hours (Table) 01/03/25 12:15 Blood Culture - Preliminary Blood 01/01/25 10:02 Blood Culture Gram Stain - Final Blood Blood Culture - Final Vanco Intermediate S. aureus Assessment and Plan Assessment: 1. End-stage renal disease maintained on hemodialysis on Friday schedule via permacath. 2. MRSA bacteremia. AV graft excised earlier this year due to bacteremia. Now concerning that permacath may be the source for infection. Blood cultures positive this admission as well. No abscess noted on CT of the upper extremity. There is a clip that was noted on CT scan which may be the source of persistent bacteremia. 3. Anemia of chronic kidney disease. On Aranesp. 4. Hypertension with chronic kidney disease. Plan: Hemodialysis today with most likely temporary dialysis catheter. Discussed with vascular surgery. Vascular surgery does not feel that the clip is contributing to the bacteremia. Blood cultures from 01/03/2025 negative thus far
--- NOTE | 2025-01-05 13:03 | P.PN ---
Subjective Progress Note Date: 01/05/25 44-year-old -[place] male came in because of MRSA bacteremia. Patient had a right upper extremity infected graft which was subsequently discontinued during his previous hospitalization because of persistent MRSA bacteremia. Patient had a ISIDORO at that time and other extensive workup including CT angio all of which are negative for endocarditis and lung abscess. Patient completed 6 weeks of antibiotic therapy after his first negative culture that was on 11/13/2024. Patient was admitted for cellulitis at the time cultures were obtained and they came back positive for MRSA patient denies any fever chills does not have any elevated white count. Patient is admitted for possible bacteremia with MRSA and concern for dialysis catheter infection which was subsequently removed yesterday. Repeat cultures are still pending and patient is presently on IV vancomycin. Patient denied any symptoms at this time 01/01/2025 1patient being admitted to the hospital after he was noted to have a positive blood culture in outpatient setting 2021 positive for MRSA as per discussion with nephrology in this patient who did have a complicated course with infected right upper extremity graft which was subsequently discontinued and the patient received almost 6 weeks of IV daptomycin from the negative blood culture and also have extensive workup on his last admission including a ISIDORO that was negative for any vegetation and WBC scan was negative, no possible source for bacteremia could be related to the tunneled dialysis catheter has no other obvious focus of infection 2-vascular surgery seen the patient catheter has been discontinued 3- patient did have r CT of the right upper extremity with contrast which was reviewed with radiologist there is a clip at the right upper end question of any focus of infection 4-patient culture has been repeated document clearance will also obtain an WBC scan continue with the vancomycin have multiple question concern answered01/01/2025 01/02/2025 Patient is seen and evaluated in room at bedside; discussed with nursing staff and no specific complaints reported Vital signs are stable temperature 98.4, pulse 70, respirations 17, blood pressure 163/86 Lab review shows WBC 6.0, hemoglobin 7.7 and platelet count of 162, sodium 135, potassium 4.7, BUN 53 with creatinine of 9.3 patient being admitted to the hospital after he was noted to have a positive blood culture in outpatient setting 2021 positive for MRSA as per discussion with nephrology in this patient who did have a complicated course with infected right upper extremity graft which was subsequently discontinued and the patient received almost 6 weeks of IV daptomycin from the negative blood culture and also have extensive workup on his last admission including a ISIDORO that was negative for any vegetation and WBC scan was negative, no possible source for bacteremia could be related to the tunneled dialysis catheter has no other obvious focus of infection -vascular surgery seen the patient catheter has been discontinued -patient did have CT of the right upper extremity with contrast which was reviewed with radiologist there is a clip at the right upper end question of any focus of infection -patient culture has been repeated 12/31/2024 and so far negative with the remains to be negative at 72-hour he is going to get a new permacatheter currently waiting for WBC scan continue with the vancomycin 01/03 This is a pleasant 44 years old -[place] male with a known case of hemodialysis and presents with bacteremia secondary to MRSA with history of ischemic cardiomyopathy. [place] source is infected dialysis catheter which was re moved Patient lying in bed states he feels better, however he is lethargic, slow to answer, does not look confused Denies any other specific complaints His right upper extremity is with minimal cellulitis, puncture wound from his right upper chest hemodialysis catheter which was removed. Looks okay with no surrounding cellulitis, no purulent discharge. Dressing is in place. Patient currently kept on IV vancomycin 01/04. Patient seen and examined. WBC scan done was normal. Denies any shortne ss of breath. Denies any chest pain. Vital signs stable. 01/05. Patient seen and examined. Blood work done this morning showed sodium 134, potassium 5.8, chloride 99, carbon is a 21, BUN 84, creatinine 11.80. Discussed with vascular surgery and ID, both recommended this time patient needs to be transferred to a tertiary level center. [facility] contacted, they will review the case and let us know if they will accept REVIEW OF SYSTEMS: CONSTITUTIONAL: No fever, no malaise,. CARDIOVASCULAR: No chest pain, no palpitations, no syncope. PULMONARY: No shortness of breath, no cough, GASTROINTESTINAL: No diarrhea, no nausea, no vomiting, no abdominal pain. NEUROLOGICAL: No headaches, no weakness, PHYSICAL EXAMINATION: GENERAL: The patient is alert and oriented x3, ill looking HEENT: Pupils are round and equally reacting to light. EOMI. No scleral icterus. No conjunctival pallor. Normocephalic, atraumatic. No pharyngeal erythema. No thyromegaly. CARDIOVASCULAR: S1 and S2 present. No murmurs, rubs, or gallops. PULMONARY: Chest is clear to auscultation, no wheezing or crackles. ABDOMEN: Soft, nontender, nondistended, normoactive bowel sounds. No palpable organomegaly. MUSCULOSKELETAL: No joint swelling or deformity. EXTREMITIES: No cyanosis, clubbing, or pedal edema. NEUROLOGICAL: Gross neurological examination did not reveal any focal deficits. SKIN: No rashes. Assessment and plan MRSA bacteremia concern for infected dialysis catheter which was removed and patient is on vancomycin which will be continued -End-stage renal disease patient received hemodialysis yesterday patient cannot get any dialysis catheter clearance of bacteremia as of now patient does not have any emergent dialysis need although patient is on vancomycin which we will continue -Hypertension -Anemia of chronic kidney disease -Hyperlipidemia -Coronary artery disease -Gastroesophageal reflux disease Monitor vital signs Monitor CBC Monitor CMP Follow-up on blood cultures, blood cultures drawn on December 29, and have been positive. Repeat blood cultures on send continue IV vancomycin pharmacy to dose Continue aspirin, Coreg, Norvasc Continue clonidine patch Continue hydralazine Monitor blood sugar levels, continue current insulin regimen Nephro following ID following, WBC scan has been negative, thank there is suspicion for possible infected vascular clip in the right upper arm could be a source of infection Vascular surgery following, discussed with him regarding possible removal of infected vascular clip, think it is highly unlikely that is the cause of this persistent bacteremia. Labs and medication were reviewed.. Continue same treatment. Continue with symptomatic treatment. Resume home medication. Monitor labs and vitals. DVT and GI prophylaxis. Further recommendations as per clinical course of the patient Dictation was produced using [employer] dictation software. please excuse any grammatical, word or spelling errors. Objective - Vital Signs Vital signs: Vital Signs Temp 97.6 F 01/05/25 07:17 Pulse 69 01/05/25 07:17 Resp 18 01/05/25 07:17 BP 156/84 01/05/25 07:17 Pulse Ox 98 01/05/25 07:17 FiO2 Intake & Output 01/04/25 01/05/25 01/05/25 18:59 06:59 18:59 Weight 83.6 kg Other: Voiding Method Toilet Urinal # Voids 2 2 - Labs CBC & Chem 7: 01/05/25 07:06 01/05/25 07:06 Labs: Abnormal Lab Results - Last 24 Hours (Table) 01/04/25 01/04/25 01/04/25 Range/Units 12:05 14:02 14:02 RBC 2.52 L (4.30-5.90) m/uL Hgb 7.9 L (13.0-17.5) gm/dL Hct 26.4 L (39.0-53.0) % MCV 104.6 H D (80.0-100.0) fL MCHC 29.8 L (31.0-37.0) g/dL RDW 18.7 H (11.5-15.5) % Lymphocytes # 0.7 L (1.0-4.8) k/uL Macrocytosis Marked A Sodium 134 L (137-145) mmol/L Potassium 5.3 H (3.5-5.1) mmol/L Carbon Dioxide (22-30) mmol/L BUN 73 H (9-20) mg/dL Creatinine 11.67 H* (0.66-1.25) mg/dL Glucose 116 H (74-99) mg/dL POC Glucose (mg/dL) 145 H (70-110) mg/dL Alkaline Phosphatase 305 H (38-126) U/L Albumin 3.2 L (3.5-5.0) g/dL 01/04/25 01/05/25 Range/Units 17:05 07:06 RBC (4.30-5.90) m/uL Hgb (13.0-17.5) gm/dL Hct (39.0-53.0) % MCV (80.0-100.0) fL MCHC (31.0-37.0) g/dL RDW (11.5-15.5) % Lymphocytes # (1.0-4.8) k/uL Macrocytosis Sodium 134 L (137-145) mmol/L Potassium 5.8 H (3.5-5.1) mmol/L Carbon Dioxide 21 L (22-30) mmol/L BUN 84 H (9-20) mg/dL Creatinine 11.80 H* (0.66-1.25) mg/dL Glucose (74-99) mg/dL POC Glucose (mg/dL) 136 H (70-110) mg/dL Alkaline Phosphatase 265 H (38-126) U/L Albumin 3.2 L (3.5-5.0) g/dL Microbiology - Last 24 Hours (Table) 01/03/25 12:15 Blood Culture - Preliminary Blood 01/01/25 10:02 Blood Culture Gram Stain - Final Blood Blood Culture - Final Vanco Intermediate S. aureus
[2025-01-05 16:31] LABS: Glucose,Whole Blood 195 mg/dL (70-110)
[2025-01-05] MEDS: LIDOCAINE 1% INJ 10MG/ML (20 ML MDV) SQ ONE (16:42)
--- NOTE | 2025-01-05 17:32 | P.PN ---
Subjective Progress Note Date: 01/05/25 Principal diagnosis: Reason for follow-up is MRSA bacteremia Patient is a 44-year-old -Bhutanese male with a past medical history significant for end-stage renal disease on dialysis he recently did have a prolonged hospital stay with MRSA bacteremia related to the right upper extremity infected graft which was subsequently discontinued and complete 6-week course of IV antibiotics presented back to the hospital with bacteremia concern for possible catheter related which has been discontinued. On today's evaluation that is 01/05/2025,the patient denies any fever or any chills, patient is breathing comfortably on room air, the patient denies chest pain shortness of breath and no significant cough, patient denies abdominal pain, no nausea vomiting or diarrhea. White count is 5.13, creatinine 11.80 blood culture not finalized with vancomycin intermittently Staph aureus Objective - Vital Signs Vital signs: Vital Signs Temp 97.6 F 01/05/25 07:17 Pulse 69 01/05/25 07:17 Resp 18 01/05/25 07:17 BP 156/84 01/05/25 07:17 Pulse Ox 98 01/05/25 07:17 FiO2 Intake & Output 01/04/25 01/05/25 01/05/25 18:59 06:59 18:59 Weight 83.6 kg Other: Voiding Method Toilet Urinal # Voids 2 2 - Exam GENERAL DESCRIPTION: Middle-age male lying in bed in no distress RESPIRATORY SYSTEM: Unlabored breathing , decreased breath sounds at bases HEART: S1 S2 regular rate and rhythm , ABDOMEN: Soft , no tenderness EXTREMITIES: No edema feet - Labs CBC & Chem 7: 01/05/25 07:06 01/05/25 07:06 Labs: Abnormal Lab Results - Last 24 Hours (Table) 01/04/25 01/04/25 01/04/25 Range/Units 12:05 14:02 14:02 RBC 2.52 L (4.30-5.90) m/uL Hgb 7.9 L (13.0-17.5) gm/dL Hct 26.4 L (39.0-53.0) % MCV 104.6 H D (80.0-100.0) fL MCHC 29.8 L (31.0-37.0) g/dL RDW 18.7 H (11.5-15.5) % MPV (9.5-12.2) FL Lymphocytes # 0.7 L (1.0-4.8) k/uL Macrocytosis Marked A Sodium 134 L (137-145) mmol/L Potassium 5.3 H (3.5-5.1) mmol/L Carbon Dioxide (22-30) mmol/L BUN 73 H (9-20) mg/dL Creatinine 11.67 H* (0.66-1.25) mg/dL Glucose 116 H (74-99) mg/dL POC Glucose (mg/dL) 145 H (70-110) mg/dL Alkaline Phosphatase 305 H (38-126) U/L Albumin 3.2 L (3.5-5.0) g/dL 01/04/25 01/05/25 01/05/25 Range/Units 17:05 07:06 07:06 RBC 2.32 L (4.30-5.90) m/uL Hgb 7.4 L (13.0-17.5) gm/dL Hct 22.8 L (39.0-53.0) % MCV 98.3 H (80.0-100.0) fL MCHC (31.0-37.0) g/dL RDW 19.9 H (11.5-15.5) % MPV 13.4 H (9.5-12.2) FL Lymphocytes # 0.82 L (1.0-4.8) k/uL Macrocytosis Sodium 134 L (137-145) mmol/L Potassium 5.8 H (3.5-5.1) mmol/L Carbon Dioxide 21 L (22-30) mmol/L BUN 84 H (9-20) mg/dL Creatinine 11.80 H* (0.66-1.25) mg/dL Glucose (74-99) mg/dL POC Glucose (mg/dL) 136 H (70-110) mg/dL Alkaline Phosphatase 265 H (38-126) U/L Albumin 3.2 L (3.5-5.0) g/dL 01/05/25 Range/Units 11:04 RBC (4.30-5.90) m/uL Hgb (13.0-17.5) gm/dL Hct (39.0-53.0) % MCV (80.0-100.0) fL MCHC (31.0-37.0) g/dL RDW (11.5-15.5) % MPV (9.5-12.2) FL Lymphocytes # (1.0-4.8) k/uL Macrocytosis Sodium (137-145) mmol/L Potassium (3.5-5.1) mmol/L Carbon Dioxide (22-30) mmol/L BUN (9-20) mg/dL Creatinine (0.66-1.25) mg/dL Glucose (74-99) mg/dL POC Glucose (mg/dL) 145 H (70-110) mg/dL Alkaline Phosphatase (38-126) U/L Albumin (3.5-5.0) g/dL Microbiology - Last 24 Hours (Table) 01/03/25 12:15 Blood Culture - Preliminary Blood 01/01/25 10:02 Blood Culture Gram Stain - Final Blood Blood Culture - Final Vanco Intermediate S. aureus Assessment and Plan (1) Bacteremia due to methicillin resistant Staphylococcus aureus Current Visit: Yes Status: Acute Code(s): R78.81 - BACTEREMIA; B95.62 - METHICILLIN RESIS STAPH INFCT CAUSING DISEASES [facility] SNOMED Code(s): 40864450283461261 Plan: 1patient being admitted to the hospital after he was noted to have a positive blood culture in outpatient setting 2021 positive for MRSA as per discussion with nephrology in this patient who did have a complicated course with infected right upper extremity graft which was subsequently discontinued and the patient received almost 6 weeks of IV daptomycin from the negative blood culture and also have extensive workup on his last admission including a ISIDORO that was negative for any vegetation and WBC scan was negative, no possible source for bacteremia could be related to the tunneled dialysis catheter has no other obvious focus of infection 2-vascular surgery seen the patient catheter has been discontinued 3-s patient did have CT of the right upper extremity with contrast which was reviewed with radiologist there is a clip at the right upper end question of any focus of infection 4-patient blood culture have been finalized with vancomycin intermittently Staph aureus vancomycin has been discontinued patient started on daptomycin 10 mg/kg every 48 hour vascular surgery recommended patient be transferred tertiary care care was discussed with the patient as well as admitting physician Dictation was produced using [employer] software. please excuse any grammatical, word or spelling errors. Time with Patient: Less than 30
[2025-01-05 20:26] LABS: Glucose,Whole Blood 132 mg/dL (70-110)
[2025-01-05] MEDS: INSULIN GLARGINE (LANTUS) 100 UNIT/ML SYR SQ SCH (21:28)
[2025-01-06 04:58] LABS: Hepatitis B Surface Antigen Nonreactive (Nonreactive)
[2025-01-06 06:21] LABS: Glucose,Whole Blood 111 mg/dL (70-110)
--- NOTE | 2025-01-06 08:37 | P.OP ---
Date of Procedure: 01/05/25 Description of Procedure: SURGEON: Shelly Larios DO HEAT SET OPERATOR: None PREOPERATIVE DIAGNOSIS: Need for dialysis, previous bacteremia POSTOPERATIVE DIAGNOSIS: Same OPERATION: Ultrasound-guided right common femoral vein access, placement of temporary dialysis catheter DESCRIPTION OF PROCEDURE: The groin was prepped and draped in usual sterile fashion. A preprocedure timeout was performed, all parties were in agreement. An ultrasound was utilized and the right common femoral vein was identified. It was patent and compressible. The skin overlying the vein was anesthetized with 1% lidocaine plain. A multipurpose needle was utilized and the femoral vein was accessed under ultrasound guidance on first attempt with return of dark venous, nonpulsatile blood. The guidewire was passed easily. Serial dilation was performed of the subcutaneous tissues. The catheter was placed and secured with suture. It aspirated and flushed freely. A dressing was applied. The patient tolerated the procedure well.
--- NOTE | 2025-01-06 11:56 | P.PN ---
Subjective Progress Note Date: 01/06/25 Principal diagnosis: Bacteremia Patient is seen and examined today as a follow-up. Right femoral temporary HD catheter was placed yesterday. He is undergoing dialysis currently. Dialysis nurse states is running fine. He underwent dialysis yesterday evening without any complications as well. Spoke with Dr. Hebert from nephrology and plan is for another dialysis treatment tomorrow. Patient denies any fevers, chills, body aches, nausea or vomiting. So far patient has been denied transfer from 2 of the outside hospitals, awaiting [facility]'s response. Blood culture from 01/03/2025 is with no growth at 48 hours. Patient is afebrile. He was switched to daptomycin from vancomycin secondary to intermediate coverage. Objective - Vital Signs Vital signs: Vital Signs Temp 98.1 F 01/06/25 08:00 Pulse 73 01/06/25 08:00 Resp 16 01/06/25 08:00 BP 160/88 01/06/25 08:00 Pulse Ox 98 01/06/25 08:00 FiO2 Intake & Output 01/05/25 01/06/25 01/06/25 18:59 06:59 18:59 Intake Total 400 Output Total 5400 Balance -5000 Weight 83.6 kg 82.5 kg Intake: Hemodialysis 400 Output: Hemodialysis 2900 Hemodialysis Net Amount 2500 Other: Voiding Method Toilet Toilet Urinal Urinal # Voids 1 2 # Bowel Movements 1 - Labs CBC & Chem 7: 01/05/25 07:06 01/05/25 07:06 Labs: Abnormal Lab Results - Last 24 Hours (Table) 01/05/25 01/05/25 01/05/25 Range/Units 07:06 16:28 20:25 POC Glucose (mg/dL) 195 H 132 H (70-110) mg/dL Hep Bs Antibody A (Negative) 01/06/25 Range/Units 06:19 POC Glucose (mg/dL) 111 H (70-110) mg/dL Hep Bs Antibody (Negative) Microbiology - Last 24 Hours (Table) 01/03/25 12:15 Blood Culture - Preliminary Blood 12/31/24 11:13 Blood Culture - Final Blood Assessment and Plan Assessment: 1. Persistent MRSA bacteremia 2. Right IJ tunnel catheter status post removal 3. End-stage renal disease on hemodialysis 4. Recent persistent MRSA bacteremia status post right upper extremity HD graft explantation and antibiotics 5. Coronary artery disease 6. Heart failure Plan: 1. Patient is post tunnel catheter removal 2. Temporary hemodialysis catheter placed, will plan to remove tomorrow after dialysis 3. Hemodialysis per recommendations from nephrology 4. Tagged WBC scan normal 5. Continue with antibiotic recommendations from infectious disease Patient's case discussed between infectious disease, primary medical team, and vascular surgery. At this time vascular surgery room recommends consideration for transfer to tertiary center for second opinion and further evaluation into recurrent bacteremia. Not likely secondary to clips from removal of dialysis graft. This has also been discussed with the patient. Patient seems willing and acceptable to transfer to tertiary center. Thank you for this consultation, we will follow along. The impression and plan of care has been dictated as directed. Dr. Larios I performed a history and examination of this patient, discussed the same with the dictator. I agree with the dictator's note ,documented as a scribe. Any additional findings or plans will be noted.
[2025-01-06 11:57] LABS: Glucose,Whole Blood 106 mg/dL (70-110)
--- NOTE | 2025-01-06 13:43 | P.PN ---
Subjective Progress Note Date: 01/06/25 44-year-old -Turkmen male came in because of MRSA bacteremia. Patient had a right upper extremity infected graft which was subsequently discontinued during his previous hospitalization because of persistent MRSA bacteremia. Patient had a ISIDORO at that time and other extensive workup including CT angio all of which are negative for endocarditis and lung abscess. Patient completed 6 weeks of antibiotic therapy after his first negative culture that was on 11/13/2024. Patient was admitted for cellulitis at the time cultures were obtained and they came back positive for MRSA patient denies any fever chills does not have any elevated white count. Patient is admitted for possible bacteremia with MRSA and concern for dialysis catheter infection which was subsequently removed yesterday. Repeat cultures are still pending and patient is presently on IV vancomycin. Patient denied any symptoms at this time 01/01/2025 1patient being admitted to the hospital after he was noted to have a positive blood culture in outpatient setting 2021 positive for MRSA as per discussion with nephrology in this patient who did have a complicated course with infected right upper extremity graft which was subsequently discontinued and the patient received almost 6 weeks of IV daptomycin from the negative blood culture and also have extensive workup on his last admission including a ISIDORO that was negative for any vegetation and WBC scan was negative, no possible source for bacteremia could be related to the tunneled dialysis catheter has no other obvious focus of infection 2-vascular surgery seen the patient catheter has been discontinued 3- patient did have r CT of the right upper extremity with contrast which was reviewed with radiologist there is a clip at the right upper end question of any focus of infection 4-patient culture has been repeated document clearance will also obtain an WBC scan continue with the vancomycin have multiple question concern answered01/01/2025 01/02/2025 Patient is seen and evaluated in room at bedside; discussed with nursing staff and no specific complaints reported Vital signs are stable temperature 98.4, pulse 70, respirations 17, blood pressure 163/86 Lab review shows WBC 6.0, hemoglobin 7.7 and platelet count of 162, sodium 135, potassium 4.7, BUN 53 with creatinine of 9.3 patient being admitted to the hospital after he was noted to have a positive blood culture in outpatient setting 2021 positive for MRSA as per discussion with nephrology in this patient who did have a complicated course with infected right upper extremity graft which was subsequently discontinued and the patient received almost 6 weeks of IV daptomycin from the negative blood culture and also have extensive workup on his last admission including a ISIDORO that was negative for any vegetation and WBC scan was negative, no possible source for bacteremia could be related to the tunneled dialysis catheter has no other obvious focus of infection -vascular surgery seen the patient catheter has been discontinued -patient did have CT of the right upper extremity with contrast which was reviewed with radiologist there is a clip at the right upper end question of any focus of infection -patient culture has been repeated 12/31/2024 and so far negative with the remains to be negative at 72-hour he is going to get a new permacatheter currently waiting for WBC scan continue with the vancomycin 01/03 This is a pleasant 44 years old -Turkmen male with a known case of hemodialysis and presents with bacteremia secondary to MRSA with history of ischemic cardiomyopathy. [place] source is infected dialysis catheter which was re moved Patient lying in bed states he feels better, however he is lethargic, slow to answer, does not look confused Denies any other specific complaints His right upper extremity is with minimal cellulitis, puncture wound from his right upper chest hemodialysis catheter which was removed. Looks okay with no surrounding cellulitis, no purulent discharge. Dressing is in place. Patient currently kept on IV vancomycin 01/04. Patient seen and examined. WBC scan done was normal. Denies any shortne ss of breath. Denies any chest pain. Vital signs stable. 01/05. Patient seen and examined. Blood work done this morning showed sodium 134, potassium 5.8, chloride 99, carbon is a 21, BUN 84, creatinine 11.80. Discussed with vascular surgery and ID, both recommended this time patient needs to be transferred to a tertiary level center. [facility] contacted, they will review the case and let us know if they will accept 01/06. Patient seen examined. Patient had a temporary catheter placed yesterday, currently undergoing dialysis. Patient has been afebrile. Blood cultures on 01/03 is negative so far REVIEW OF SYSTEMS: CONSTITUTIONAL: No fever, no malaise,. CARDIOVASCULAR: No chest pain, no palpitations, no syncope. PULMONARY: No shortness of breath, no cough, GASTROINTESTINAL: No diarrhea, no nausea, no vomiting, no abdominal pain. NEUROLOGICAL: No headaches, no weakness, PHYSICAL EXAMINATION: GENERAL: The patient is alert and oriented x3, ill looking HEENT: Pupils are round and equally reacting to light. EOMI. No scleral icterus. No conjunctival pallor. Normocephalic, atraumatic. No pharyngeal erythema. No thyromegaly. CARDIOVASCULAR: S1 and S2 present. No murmurs, rubs, or gallops. PULMONARY: Chest is clear to auscultation, no wheezing or crackles. ABDOMEN: Soft, nontender, nondistended, normoactive bowel sounds. No palpable organomegaly. MUSCULOSKELETAL: No joint swelling or deformity. EXTREMITIES: No cyanosis, clubbing, or pedal edema. NEUROLOGICAL: Gross neurological examination did not reveal any focal deficits. SKIN: No rashes. Assessment and plan MRSA bacteremia concern for infected dialysis catheter which was removed and patient is on vancomycin which will be continued -End-stage renal disease patient received hemodialysis yesterday patient cannot get any dialysis catheter clearance of bacteremia as of now patient does not have any emergent dialysis need although patient is on vancomycin which we will continue -Hypertension -Anemia of chronic kidney disease -Hyperlipidemia -Coronary artery disease -Gastroesophageal reflux disease Monitor vital signs Monitor CBC Monitor CMP Follow-up on blood cultures, blood cultures drawn on December 29, and have been positive. Repeat blood cultures on 317 send Currently on daptomycin and rifampin Continue aspirin, Coreg, Norvasc Continue clonidine patch Continue hydralazine Monitor blood sugar levels, continue current insulin regimen Nephro following ID following, WBC scan has been negative, thank there is suspicion for possible infected vascular clip in the right upper arm could be a source of infection Vascular surgery following, discussed with him regarding possible removal of infected vascular clip, think it is highly unlikely that is the cause of this persistent bacteremia. Labs and medication were reviewed.. Continue same treatment. Continue with symptomatic treatment. Resume home medication. Monitor labs and vitals. DVT and GI prophylaxis. Further recommendations as per clinical course of the patient Dictation was produced using [email or web address] dictation software. please excuse any grammatical, word or spelling errors. Objective - Vital Signs Vital signs: Vital Signs Temp 98.3 F 01/06/25 12:53 Pulse 73 01/06/25 12:53 Resp 18 01/06/25 12:53 BP 165/96 01/06/25 12:53 Pulse Ox 98 01/06/25 08:00 FiO2 Intake & Output 01/05/25 01/06/25 01/06/25 18:59 06:59 18:59 Intake Total 400 400 Output Total 5400 4400 Balance -5000 -4000 Weight 83.6 kg 82.5 kg Intake: Hemodialysis 400 400 Output: Hemodialysis 2900 2400 Hemodialysis Net Amount 2500 2000 Other: Voiding Method Toilet Toilet Urinal Urinal # Voids 1 2 # Bowel Movements 1 - Labs CBC & Chem 7: 01/05/25 07:06 01/05/25 07:06 Labs: Abnormal Lab Results - Last 24 Hours (Table) 01/05/25 01/05/25 01/05/25 Range/Units 07:06 16:28 20:25 POC Glucose (mg/dL) 195 H 132 H (70-110) mg/dL Hep Bs Antibody A (Negative) 01/06/25 Range/Units 06:19 POC Glucose (mg/dL) 111 H (70-110) mg/dL Hep Bs Antibody (Negative) Microbiology - Last 24 Hours (Table) 01/03/25 12:15 Blood Culture - Preliminary Blood 12/31/24 11:13 Blood Culture - Final Blood
--- NOTE | 2025-01-06 15:47 | P.PN ---
Subjective Progress Note Date: 01/06/25 Principal diagnosis: Reason for follow-up is MRSA bacteremia Patient is a 44-year-old -Slovenian male with a past medical history significant for end-stage renal disease on dialysis he recently did have a prolonged hospital stay with MRSA bacteremia related to the right upper extremity infected graft which was subsequently discontinued and complete 6-week course of IV antibiotics presented back to the hospital with bacteremia concern for possible catheter related which has been discontinued. On today's evaluation that is 01/06/2025,the patient remains to be afebrile, patient is on room air not requiring supplemental oxygen and denies any shortness of breath no chest pain or cough.Patient denies having any nausea or vomiting, no abdominal pain and no diarrhea has been reported. No new lab has been repeated today blood culture from 01/03/2025 so far negative Objective - Vital Signs Vital signs: Vital Signs Temp 98.3 F 01/06/25 12:53 Pulse 73 01/06/25 12:53 Resp 18 01/06/25 12:53 BP 165/96 01/06/25 12:53 Pulse Ox 98 01/06/25 08:00 FiO2 Intake & Output 01/05/25 01/06/25 01/06/25 18:59 06:59 18:59 Intake Total 400 400 Output Total 5400 4400 Balance -5000 -4000 Weight 83.6 kg 82.5 kg Intake: Hemodialysis 400 400 Output: Hemodialysis 2900 2400 Hemodialysis Net Amount 2500 2000 Other: Voiding Method Toilet Toilet Urinal Urinal # Voids 1 2 # Bowel Movements 1 - Exam GENERAL DESCRIPTION: Middle-age male lying in bed in no distress RESPIRATORY SYSTEM: Unlabored breathing , decreased breath sounds at bases HEART: S1 S2 regular rate and rhythm , ABDOMEN: Soft , no tenderness EXTREMITIES: No edema feet - Labs CBC & Chem 7: 01/05/25 07:06 01/05/25 07:06 Labs: Abnormal Lab Results - Last 24 Hours (Table) 01/05/25 01/05/25 01/05/25 Range/Units 07:06 16:28 20:25 POC Glucose (mg/dL) 195 H 132 H (70-110) mg/dL Hep Bs Antibody A (Negative) 01/06/25 Range/Units 06:19 POC Glucose (mg/dL) 111 H (70-110) mg/dL Hep Bs Antibody (Negative) Microbiology - Last 24 Hours (Table) 01/03/25 12:15 Blood Culture - Preliminary Blood 12/31/24 11:13 Blood Culture - Final Blood Assessment and Plan (1) Bacteremia due to methicillin resistant Staphylococcus aureus Current Visit: Yes Status: Acute Code(s): R78.81 - BACTEREMIA; B95.62 - METHICILLIN RESIS STAPH INFCT CAUSING DISEASES [facility]SD [facility] SNOMED Code(s): 96144475801982981 Plan: 1patient being admitted to the hospital after he was noted to have a positive blood culture in outpatient setting 2021 positive for MRSA as per discussion with nephrology in this patient who did have a complicated course with infected right upper extremity graft which was subsequently discontinued and the patient received almost 6 weeks of IV daptomycin from the negative blood culture and also have extensive workup on his last admission including a ISIDORO that was negative for any vegetation and WBC scan was negative, no possible source for bacteremia could be related to the tunneled dialysis catheter has no other obvious focus of infection 2-vascular surgery seen the patient catheter has been discontinued 3-s patient did have CT of the right upper extremity with contrast which was reviewed with radiologist there is a clip at the right upper end question of any focus of infection 4-patient blood cultures from 01/03/2025 has been negative so far if there remains to be negative will be able to get a permacatheter for now continue with the daptomycin care discussed with the vascular surgeon Dictation was produced using [employer] software. please excuse any grammatical, word or spelling errors.
[2025-01-06 17:03] LABS: Glucose,Whole Blood 144 mg/dL (70-110)
--- NOTE | 2025-01-06 17:12 | P.PN ---
Subjective Patient is seen for follow-up for end-stage renal disease. Status post temporary dialysis catheter placement on 01/05/2025. Patient received dialysis yesterday and is seen on hemodialysis today. Blood cultures from 01/03/2025 are negative so far No complaints of shortness of breath. Objective - Vital Signs Vital signs: Vital Signs Temp 98.4 F 01/06/25 13:59 Pulse 70 01/06/25 13:59 Resp 18 01/06/25 13:59 BP 150/76 01/06/25 13:59 Pulse Ox 96 01/06/25 13:59 FiO2 Intake & Output 01/05/25 01/06/25 01/06/25 18:59 06:59 18:59 Intake Total 400 400 Output Total 5400 4400 Balance -5000 -4000 Weight 83.6 kg 82.5 kg Intake: Hemodialysis 400 400 Output: Hemodialysis 2900 2400 Hemodialysis Net Amount 2500 2000 Other: Voiding Method Toilet Toilet Urinal Urinal # Voids 1 2 # Bowel Movements 1 - Exam Patient is awake, comfortable, no acute distress. Alert oriented x 3 Examination of lower extremities shows trace edema. No erythema or tenderness noted in the right upper extremity. [employer] PRES[employer] exam grossly intact - Labs CBC & Chem 7: 01/05/25 07:06 01/05/25 07:06 Labs: Abnormal Lab Results - Last 24 Hours (Table) 01/05/25 01/05/25 01/06/25 Range/Units 07:06 20:25 06:19 POC Glucose (mg/dL) 132 H 111 H (70-110) mg/dL Hep Bs Antibody A (Negative) 01/06/25 Range/Units 17:02 POC Glucose (mg/dL) 144 H (70-110) mg/dL Hep Bs Antibody (Negative) Microbiology - Last 24 Hours (Table) 01/03/25 12:15 Blood Culture - Preliminary Blood 12/31/24 11:13 Blood Culture - Final Blood Assessment and Plan Assessment: 1. End-stage renal disease maintained on hemodialysis on Friday schedule via permacath. 2. MRSA bacteremia. AV graft excised earlier this year in November due to bacteremia. Status post removal of permacath. Blood cultures positive this admission as well. No abscess noted on CT of the upper extremity. There is a clip that was noted on CT scan which may be the source of persistent bacteremia as per ID. 3. Anemia of chronic kidney disease. On Aranesp. 4. Hypertension with chronic kidney disease. Plan: Hemodialysis today and repeat in a.m. Discontinue dialysis catheter tomorrow after hemodialysis. Blood cultures from 01/03/2025 negative thus far
[2025-01-06 21:12] LABS: Glucose,Whole Blood 300 mg/dL (70-110)
[2025-01-06 21:16] LABS: Glucose,Whole Blood 229 mg/dL (70-110)
[2025-01-07 05:15] LABS: Glucose,Whole Blood 52 mg/dL (70-110)
[2025-01-07] MEDS: DEXTROSE 50% SYRINGE 50 ML IVP PRN (05:38)
[2025-01-07 06:04] LABS: Glucose,Whole Blood 183 mg/dL (70-110)
[2025-01-07 06:04] LABS: Glucose,Whole Blood 46 mg/dL (70-110)
--- NOTE | 2025-01-07 08:55 | P.PN ---
Subjective Progress Note Date: 01/07/25 Principal diagnosis: Bacteremia Patient is seen and examined today as a follow-up. His is at the bedside. Patient was hypoglycemic earlier this morning since then he has been treated. Now having some diarrhea. He was also having some bleeding from his temporary cath site in the right groin. Dressing was changed. Still appears to have some oozing. He is scheduled to get dialysis again today with plan of pulling catheter after. Preliminary blood cultures at 72 hours are with no growth. He remains on IV antibiotics. Afebrile, no shortness of breath or chest pain. No fevers, chills or bodyaches. Patient was accepted by [facility] with a bed yesterday however he declined transfer despite the fact that vascular surgery and infectious disease still recommended transfer. Objective - Vital Signs Vital signs: Vital Signs Temp 98.9 F 01/07/25 08:00 Pulse 64 01/07/25 08:00 Resp 18 01/07/25 08:00 BP 150/85 01/07/25 08:00 Pulse Ox 100 01/07/25 08:00 FiO2 Intake & Output 01/06/25 01/07/25 01/07/25 18:59 06:59 18:59 Intake Total 400 Output Total 4400 Balance -4000 Weight 85 kg Intake: Hemodialysis 400 Output: Hemodialysis 2400 Hemodialysis Net Amount 2000 Other: Voiding Method Toilet Urinal # Voids 0 1 - Exam General appearance: The patient is alert, oriented, appears in no acute distress. HET: Head is normocephalic and atraumatic. Neck: Supple. Chest: Right upper chest wall previous tunnel catheter site without any bleeding, drainage or redness. No swelling. Lungs: Equal expansion, normal respiratory effort. Abdomen: Soft, nondistended. Extremities: Normal skin color and turgor. Right upper extremity surgical incision healed. No swelling, erythema, tenderness or drainage. Palpable radial pulse. Neurological: Alert and oriented. - Labs CBC & Chem 7: 01/05/25 07:06 01/05/25 07:06 Labs: Abnormal Lab Results - Last 24 Hours (Table) 01/06/25 01/06/25 01/06/25 Range/Units 17:02 21:09 21:15 POC Glucose (mg/dL) 144 H 300 H 229 H (70-110) mg/dL 01/07/25 01/07/2501/07/25 Range/Units 05:14 05:33 05:47 POC Glucose (mg/dL) 52 L 46 L* 183 H (70-110) mg/dL Microbiology - Last 24 Hours (Table) 01/03/25 12:15 Blood Culture - Preliminary Blood Assessment and Plan Assessment: 1. Persistent MRSA bacteremia 2. Right IJ tunnel catheter status post removal 3. End-stage renal disease on hemodialysis 4. Recent persistent MRSA bacteremia status post right upper extremity HD graft explantation and antibiotics 5. Coronary artery disease 6. Heart failure Plan: 1. Patient is post tunnel catheter removal 2. Temporary hemodialysis catheter placed, will plan to remove today after dialysis 3. Hemodialysis per recommendations from nephrology 4. Tagged WBC scan normal 5. Repeat blood cultures from 01/03/2025 with no growth at 72 hours 6. Continue with antibiotic recommendations from infectious disease 7. Tentative plan for possible hemodialysis catheter placement Friday or Friday if blood cultures remain with no growth Patient's case discussed between infectious disease, primary medical team, and vascular surgery. Recommendation for transfer to tertiary center for further evaluation/second opinion for persistent bacteremia. Patient was accepted at [facility] with a bed available however patient and declined transfer despite vascular surgery and infectious disease still recommending transfer. Thank you for this consultation, we will follow along. The impression and plan of care has been dictated as directed. Dr. Larios I performed a history and examination of this patient, discussed the same with the dictator. I agree with the dictator's note ,documented as a scribe. Any additional findings or plans will be noted.
[2025-01-07 11:17] LABS: Glucose,Whole Blood 57 mg/dL (70-110)
[2025-01-07 11:28] LABS: Glucose,Whole Blood 56 mg/dL (70-110)
[2025-01-07 12:02] LABS: Glucose,Whole Blood 116 mg/dL (70-110)
--- NOTE | 2025-01-07 13:09 | P.PN ---
Subjective Progress Note Date: 01/07/25 44-year-old -[place] male came in because of MRSA bacteremia. Patient had a right upper extremity infected graft which was subsequently discontinued during his previous hospitalization because of persistent MRSA bacteremia. Patient had a ISIDORO at that time and other extensive workup including CT angio all of which are negative for endocarditis and lung abscess. Patient completed 6 weeks of antibiotic therapy after his first negative culture that was on 11/13/2024. Patient was admitted for cellulitis at the time cultures were obtained and they came back positive for MRSA patient denies any fever chills does not have any elevated white count. Patient is admitted for possible bacteremia with MRSA and concern for dialysis catheter infection which was subsequently removed yesterday. Repeat cultures are still pending and patient is presently on IV vancomycin. Patient denied any symptoms at this time 01/01/2025 1patient being admitted to the hospital after he was noted to have a positive blood culture in outpatient setting 2021 positive for MRSA as per discussion with nephrology in this patient who did have a complicated course with infected right upper extremity graft which was subsequently discontinued and the patient received almost 6 weeks of IV daptomycin from the negative blood culture and also have extensive workup on his last admission including a ISIDORO that was negative for any vegetation and WBC scan was negative, no possible source for bacteremia could be related to the tunneled dialysis catheter has no other obvious focus of infection 2-vascular surgery seen the patient catheter has been discontinued 3- patient did have r CT of the right upper extremity with contrast which was reviewed with radiologist there is a clip at the right upper end question of any focus of infection 4-patient culture has been repeated document clearance will also obtain an WBC scan continue with the vancomycin have multiple question concern answered01/01/2025 01/02/2025 Patient is seen and evaluated in room at bedside; discussed with nursing staff and no specific complaints reported Vital signs are stable temperature 98.4, pulse 70, respirations 17, blood pressure 163/86 Lab review shows WBC 6.0, hemoglobin 7.7 and platelet count of 162, sodium 135, potassium 4.7, BUN 53 with creatinine of 9.3 patient being admitted to the hospital after he was noted to have a positive blood culture in outpatient setting 2021 positive for MRSA as per discussion with nephrology in this patient who did have a complicated course with infected right upper extremity graft which was subsequently discontinued and the patient received almost 6 weeks of IV daptomycin from the negative blood culture and also have extensive workup on his last admission including a ISIDORO that was negative for any vegetation and WBC scan was negative, no possible source for bacteremia could be related to the tunneled dialysis catheter has no other obvious focus of infection -vascular surgery seen the patient catheter has been discontinued -patient did have CT of the right upper extremity with contrast which was reviewed with radiologist there is a clip at the right upper end question of any focus of infection -patient culture has been repeated 12/31/2024 and so far negative with the remains to be negative at 72-hour he is going to get a new permacatheter currently waiting for WBC scan continue with the vancomycin 01/03 This is a pleasant 44 years old -[place] male with a known case of hemodialysis and presents with bacteremia secondary to MRSA with history of ischemic cardiomyopathy. [place] source is infected dialysis catheter which was re moved Patient lying in bed states he feels better, however he is lethargic, slow to answer, does not look confused Denies any other specific complaints His right upper extremity is with minimal cellulitis, puncture wound from his right upper chest hemodialysis catheter which was removed. Looks okay with no surrounding cellulitis, no purulent discharge. Dressing is in place. Patient currently kept on IV vancomycin 01/04. Patient seen and examined. WBC scan done was normal. Denies any shortne ss of breath. Denies any chest pain. Vital signs stable. 01/05. Patient seen and examined. Blood work done this morning showed sodium 134, potassium 5.8, chloride 99, carbon is a 21, BUN 84, creatinine 11.80. Discussed with vascular surgery and ID, both recommended this time patient needs to be transferred to a tertiary level center. [facility] contacted, they will review the case and let us know if they will accept 01/06. Patient seen examined. Patient had a temporary catheter placed yesterday, currently undergoing dialysis. Patient has been afebrile. Blood cultures on 01/03 is negative so . Patient seen and examined. Patient received bed offer from [facility] regarding transfer, more than 1 hour was spent in coordinating care for transfer to [facility] but patient and his at this time declined transfer, they are aware that both ID and vascular surgery at this time are recommending transfer REVIEW OF SYSTEMS: CONSTITUTIONAL: No fever, no malaise,. CARDIOVASCULAR: No chest pain, no palpitations, no syncope. PULMONARY: No shortness of breath, no cough, GASTROINTESTINAL: No diarrhea, no nausea, no vomiting, no abdominal pain. NEUROLOGICAL: No headaches, no weakness, PHYSICAL EXAMINATION: GENERAL: The patient is alert and oriented x3, ill looking HEENT: Pupils are round and equally reacting to light. EOMI. No scleral icterus. No conjunctival pallor. Normocephalic, atraumatic. No pharyngeal erythema. No thyromegaly. CARDIOVASCULAR: S1 and S2 present. No murmurs, rubs, or gallops. PULMONARY: Chest is clear to auscultation, no wheezing or crackles. ABDOMEN: Soft, nontender, nondistended, normoactive bowel sounds. No palpable o rganomegaly. MUSCULOSKELETAL: No joint swelling or deformity. EXTREMITIES: No cyanosis, clubbing, or pedal edema. NEUROLOGICAL: Gross neurological examination did not reveal any focal deficits. SKIN: No rashes. Assessment and plan MRSA bacteremia concern for infected dialysis catheter which was removed and patient is on vancomycin which will be continued -End-stage renal disease patient received hemodialysis yesterday patient cannot get any dialysis catheter clearance of bacteremia as of now patient does not have any emergent dialysis need although patient is on vancomycin which we will continue -Hypertension -Anemia of chronic kidney disease -Hyperlipidemia -Coronary artery disease -Gastroesophageal reflux disease Monitor vital signs Monitor CBC Monitor CMP Follow-up on blood cultures, blood cultures drawn on December 29, and have been positive. Repeat blood cultures on 317 send Currently on daptomycin and rifampin Continue aspirin, Coreg, Norvasc Continue clonidine patch Continue hydralazine Monitor blood sugar levels, continue current insulin regimen Nephro following ID following Vascular surgery following Patient received bed offer from [facility] regarding transfer, more than 1 hour was spent in coordinating care for transfer to [facility] but patient and his at this time declined transfer, they are aware that both ID and vascular surgery at this time are recommending transfer Labs and medication were reviewed.. Continue same treatment. Continue with symptomatic treatment. Resume home medication. Monitor labs and vitals. DVT and GI prophylaxis. Further recommendations as per clinical course of the patient Dictation was produced using [employer] dictation software. please excuse any grammatical, word or spelling errors. Objective - Vital Signs Vital signs: Vital Signs Temp 98.9 F 01/07/25 08:00 Pulse 64 01/07/25 08:00 Resp 18 01/07/25 08:00 BP 150/85 01/07/25 08:00 Pulse Ox 100 01/07/25 08:00 FiO2 Intake & Output 01/06/25 01/07/25 01/07/25 18:59 06:59 18:59 Intake Total 400 Output Total 4400 Balance -4000 Weight 85 kg Intake: Hemodialysis 400 Output: Hemodialysis 2400 Hemodialysis Net Amount 2000 Other: Voiding Method Toilet Urinal # Voids 0 1 - Labs CBC & Chem 7: 01/05/25 07:06 01/05/25 07:06 Labs: Abnormal Lab Results - Last 24 Hours (Table) 01/06/25 01/06/25 01/06/25 Range/Units 17:02 21:09 21:15 POC Glucose (mg/dL) 144 H 300 H 229 H (70-110) mg/dL 01/07/25 01/07/25 01/07/25 Range/Units 05:14 05:33 05:47 POC Glucose (mg/dL) 52 L 46 L* 183 H (70-110) mg/dL Microbiology - Last 24 Hours (Table) 01/03/25 12:15 Blood Culture - Preliminary Blood
--- NOTE | 2025-01-07 15:25 | P.PN ---
Subjective Progress Note Date: 01/07/25 Principal diagnosis: Reason for follow-up is MRSA bacteremia Patient is a 44-year-old -[place] male with a past medical history significant for end-stage renal disease on dialysis he recently did have a prolonged hospital stay with MRSA bacteremia related to the right upper extremity infected graft which was subsequently discontinued and complete 6-week course of IV antibiotics presented back to the hospital with bacteremia concern for possible catheter related which has been discontinued. On today's evaluation that is 01/07/2025, the patient continues to be afebrile, the patient is on room air and breathing comfortably, the Pt denies having any chest pain or cough, the patient denies having any abdominal pain no vomiting or any diarrhea. No new lab has been repeated today, blood culture from 01/03/2025 so far negative Objective - Vital Signs Vital signs: Vital Signs Temp 98.9 F 01/07/25 08:00 Pulse 65 01/07/25 12:24 Resp 16 01/07/25 12:24 BP 146/85 01/07/25 12:24 Pulse Ox 100 01/07/25 08:00 FiO2 Intake & Output 01/06/25 01/07/25 01/07/25 18:59 06:59 18:59 Intake Total 400 400 Output Total 4400 4400 Balance -4000 -4000 Weight 85 kg Intake: Hemodialysis 400 400 Output: Hemodialysis 2400 2400 Hemodialysis Net Amount 1999 1999 Other: Voiding Method Toilet Toilet Urinal Urinal # Voids 0 1 - Labs CBC & Chem 7: 01/05/25 07:06 01/05/25 07:06 Labs: Abnormal Lab Results - Last 24 Hours (Table) 01/06/25 01/06/25 01/06/25 Range/Units 17:02 21:09 21:15 POC Glucose (mg/dL) 144 H 300 H 229 H (70-110) mg/dL 01/07/25 01/07/25 01/07/25 Range/Units 05:14 05:33 05:47 POC Glucose (mg/dL) 52 L 46 L* 183 H (70-110) mg/dL 01/07/25 01/07/25 01/07/25 Range/Units 11:16 11:27 12:00 POC Glucose (mg/dL) 57 L 56 L 116 H (70-110) mg/dL Microbiology - Last 24 Hours (Table) 01/03/25 12:15 Blood Culture - Preliminary Blood Assessment and Plan (1) Bacteremia due to methicillin resistant Staphylococcus aureus Current Visit: Yes Status: Acute Code(s): R78.81 - BACTEREMIA; B95.62 - METHICILLIN RESIS STAPH INFCT [facility] Code(s): 68805119015708786 Plan: 1patient being admitted to the hospital after he was noted to have a positive blood culture in outpatient setting 2021 positive for MRSA as per discussion with nephrology in this patient who did have a complicated course with infected right upper extremity graft which was subsequently discontinued and the patient received almost 6 weeks of IV daptomycin from the negative blood culture and also have extensive workup on his last admission including a ISIDORO that was negative for any vegetation and WBC scan was negative, no possible source for bacteremia could be related to the tunneled dialysis catheter has no other obvious focus of infection 2-vascular surgery seen the patient catheter has been discontinued 3-s patient did have CT of the right upper extremity with contrast which was reviewed with radiologist there is a clip at the right upper end question of any focus of infection 4-patient blood cultures from 01/03/2025 has been negative so far if there remains to be negative will be able to get a permacatheter, the patient and the refused transfer to [facility] yesterday they are aware of the fact that if those vascular clips are infected he would not be able to completely eradicate his infection and will need to be on a lifelong suppressive antibiotic therapy both of them responded and yes meaning they understood the information provided to them Dictation was produced using [employer] dictation software. please excuse any grammatical, word or spelling errors. Time with Patient: Less than 30
[2025-01-07 16:08] LABS: Glucose,Whole Blood 166 mg/dL (70-110)
--- NOTE | 2025-01-07 19:29 | P.PN ---
Subjective Patient is seen for follow-up for end-stage renal disease. Status post temporary dialysis catheter placement on 01/05/2025. Patient received dialysis yesterday and is seen on hemodialysis today. Blood cultures from 01/03/2025 are negative so far No complaints of shortness of breath. Objective - Vital Signs Vital signs: Vital Signs Temp 97.8 F 01/07/25 14:56 Pulse 80 01/07/25 14:56 Resp 18 01/07/25 14:56 BP 169/90 01/07/25 14:56 Pulse Ox 100 01/07/25 14:56 FiO2 Intake & Output 01/07/25 01/07/25 01/08/25 06:59 18:59 06:59 Intake Total 400 Output Total 4400 Balance -4000 Weight 85 kg Intake: Hemodialysis 400 Output: Hemodialysis 2400 Hemodialysis Net Amount 2000 Other: Voiding Method Toilet Urinal # Voids 1 2 - Exam Patient is awake, comfortable, no acute distress. Alert oriented x 3 Examination of lower extremities shows trace edema. No erythema or tenderness noted in the right upper extremity. ENGINE MECHANIC exam grossly intact - Labs CBC & Chem 7: 01/05/25 07:06 01/05/25 07:06 Labs: Abnormal Lab Results - Last 24 Hours (Table) 01/06/25 01/06/25 01/07/25 Range/Units 21:09 21:15 05:14 POC Glucose (mg/dL) 300 H 229 H 52 L (70-110) mg/dL 01/07/25 01/07/25 01/07/25 Range/Units 05:33 05:47 11:16 POC Glucose (mg/dL) 46 L* 183 H 57 L (70-110) mg/dL 01/07/25 01/07/25 01/07/25 Range/Units 11:27 12:00 16:07 POC Glucose (mg/dL) 56 L 116 H 166 H (70-110) mg/dL Microbiology - Last 24 Hours (Table) 01/03/25 12:15 Blood Culture - Preliminary Blood Assessment and Plan Assessment: 1. End-stage renal disease maintained on hemodialysis on Friday schedule via permacath. 2. MRSA bacteremia. AV graft excised earlier this year in November due to bacteremia. Status post removal of permacath. Blood cultures positive this ad mission as well. No abscess noted on CT of the upper extremity. There is a clip that was noted on CT scan which may be the source of persistent bacteremia as per ID. 3. Anemia of chronic kidney disease. On Aranesp. 4. Hypertension with chronic kidney disease. Plan: Hemodialysis today and remove dialysis catheter after treatment today. Blood cultures from 01/03/2025 negative thus far
[2025-01-07 20:44] LABS: Glucose,Whole Blood 180 mg/dL (70-110)
[2025-01-08 06:28] LABS: Glucose,Whole Blood 145 mg/dL (70-110)
[2025-01-08 09:58] LABS: Basophils # (A) 0.03 X 10*3/uL (0.00-0.10); Basophils % (A) 0.6 %; Eosinophils % (A) 2.1 %; HGB 7.5 g/dL (13.0-17.0); Lymphocytes # (A) 0.93 X 10*3/uL (0.90-5.00); Lymphocytes % (A) 19.8 %; MCH 30.7 pg (27.0-32.0); MCHC 31.3 g/dL (32.0-37.0); MCV 98.4 FL (80.0-97.0); Mean Platelet Volume 12.9 FL (9.5-12.2); Monocytes # (A) 0.64 X 10*3/uL (0.20-1.00); Monocytes % (A) 13.6 %; NRBC Per 100 WBC 0 X 10*3/uL (0.00-0.01); Neutrophils # (A) 2.97 X 10*3/uL (1.80-7.70); Neutrophils % (A) 63.5 %; Platelet Count 146 X 10*3/uL (140-440); RBC 2.44 X 10*6/uL (4.40-5.60); RDW 19.4 % (11.5-14.5); WBC 4.69 X 10*3/uL (4.50-10.00)
[2025-01-08 10:18] LABS: BUN/Creat Ratio 5.02 Ratio (12.00-20.00); Blood Urea Nitrogen 25.1 mg/dL (9.0-27.0); Chloride 97 mmol/L (96-109); Glucose 137 mg/dL (70-110); Potassium 4.3 mmol/L (3.5-5.5); Sodium 135 mmol/L (135-145)
[2025-01-08 10:19] LABS: ALT 23 U/L (10-49); AST 29 U/L (14-35); Albumin 3.1 g/dL (3.8-4.9); Albumin/Globulin Ratio 0.82 Ratio (1.60-3.17); Alkaline Phosphatase 255 U/L (41-126); Calcium 8.8 mg/dL (8.7-10.3); Carbon Dioxide 26.2 mmol/L (21.6-31.8); Globulin 3.8 g/dL (1.6-3.3); Total Bilirubin 0.9 mg/dL (0.3-1.2); Total Protein 6.9 g/dL (6.2-8.2)
[2025-01-08 11:39] LABS: Glucose,Whole Blood 209 mg/dL (70-110)
--- NOTE | 2025-01-08 12:09 | P.PN ---
Subjective 44-year-old -[place] male came in because of MRSA bacteremia. Patient had a right upper extremity infected graft which was subsequently discontinued during his previous hospitalization because of persistent MRSA bacteremia. Patient had a ISIDORO at that time and other extensive workup including CT angio all of which are negative for endocarditis and lung abscess. Patient completed 6 weeks of antibiotic therapy after his first negative culture that was on 11/13/2024. Patient was admitted for cellulitis at the time cultures were obtained and they came back positive for MRSA patient denies any fever chills does not have any elevated white count. Patient is admitted for possible bacteremia with MRSA and concern for dialysis catheter infection which was subsequently removed yesterday. Repeat cultures are still pending and patient is presently on IV vancomycin. Patient denied any symptoms at this time 01/01/2025 1patient being admitted to the hospital after he was noted to have a positive blood culture in outpatient setting 2021 positive for MRSA as per discussion with nephrology in this patient who did have a complicated course with infected right upper extremity graft which was subsequently discontinued and the patient received almost 6 weeks of IV daptomycin from the negative blood culture and also have extensive workup on his last admission including a ISIDORO that was negative for any vegetation and WBC scan was negative, no possible source for bacteremia could be related to the tunneled dialysis catheter has no other obvious focus of infection 2-vascular surgery seen the patient catheter has been discontinued 3- patient did have r CT of the right upper extremity with contrast which was r eviewed with radiologist there is a clip at the right upper end question of any focus of infection 4-patient culture has been repeated document clearance will also obtain an WBC scan continue with the vancomycin have multiple question concern answered01/01/2025 01/02/2025 Patient is seen and evaluated in room at bedside; discussed with nursing staff and no specific complaints reported Vital signs are stable temperature 98.4, pulse 70, respirations 17, blood pressure 163/86 Lab review shows WBC 6.0, hemoglobin 7.7 and platelet count of 162, sodium 135, potassium 4.7, BUN 53 with creatinine of 9.3 patient being admitted to the hospital after he was noted to have a positive blood culture in outpatient setting 2021 positive for MRSA as per discussion with nephrology in this patient who did have a complicated course with infected right upper extremity graft which was subsequently discontinued and the patient received almost 6 weeks of IV daptomycin from the negative blood culture and also have extensive workup on his last admission including a ISIDORO that was negative for any vegetation and WBC scan was negative, no possible source for bacteremia could be related to the tunneled dialysis catheter has no other obvious focus of infection -vascular surgery seen the patient catheter has been discontinued -patient did have CT of the right upper extremity with contrast which was reviewed with radiologist there is a clip at the right upper end question of any focus of infection -patient culture has been repeated 12/31/2024 and so far negative with the remains to be negative at 72-hour he is going to get a new permacatheter currently waiting for WBC scan continue with the vancomycin 01/03 This is a pleasant 44 years old -[place] male with a known case of hemodialysis and presents with bacteremia secondary to MRSA with history of ischemic cardiomyopathy. [place] source is infected dialysis catheter which was removed Patient lying in bed states he feels better, however he is lethargic, slow to answer, does not look confused Denies any other specific complaints His right upper extremity is with minimal cellulitis, puncture wound from his right upper chest hemodialysis catheter which was removed. Looks okay with no surrounding cellulitis, no purulent discharge. Dressing is in place. Patient currently kept on IV vancomycin 01/04. Patient seen and examined. WBC scan done was normal. Denies any shortness of breath. Denies any chest pain. Vital signs stable. 01/05. Patient seen and examined. Blood work done this morning showed sodium 134, potassium 5.8, chloride 99, carbon is a 21, BUN 84, creatinine 11.80. Discussed with vascular surgery and ID, both recommended this time patient needs to be transferred to a tertiary level center. [facility] contacted, they will review the case and let us know if they will accept 01/06. Patient seen examined. Patient had a temporary catheter placed yesterday, currently undergoing dialysis. Patient has been afebrile. Blood cultures on 01/03 is negative so . Patient seen and examined. Patient received bed offer from [facility] regarding transfer, more than 1 hour was spent in coordinating care for transfer to [facility] but patient and his at this time declined transfer, they are aware that both ID and vascular surgery at this time are recommending transfer 01/08 Patient generally weak No new complaints He is sugars controlled His antibiotics were updated recently to oral rifampin and IV daptomycin pending the results of repeat blood culture from 01/03 Objective - Vital Signs Vital signs: Vital Signs Temp 98.2 F 01/08/25 07:10 Pulse 75 01/08/25 07:10 Resp 18 01/08/25 07:10 BP 154/90 01/08/25 07:10 Pulse Ox 97 01/08/25 07:10 FiO2 Intake & Output 01/07/25 01/08/25 01/08/25 18:59 06:59 18:59 Intake Total 400 550 Output Total 4400 Balance -4000 550 Intake: Oral 550 Hemodialysis 400 Output: Hemodialysis 2400 Hemodialysis Net Amount 2000 Other: Voiding Method Toilet Toilet Urinal Urinal # Voids 2 - Exam -GENERAL: The patient is alert and oriented x3, not in any acute distress. Well developed, well nourished. Lethargic HEENT: Pupils are round and equally reacting to light. EOMI. No scleral icterus. No conjunctival pallor. Normocephalic, atraumatic. No pharyngeal erythema. No thyromegaly. CARDIOVASCULAR: S1 and S2 present. No murmurs, rubs, or gallops. -PULMONARY: Chest is clear to auscultation, no wheezing , no crackles. Right upper chest wall puncture wound with no surrounding cellulitis ABDOMEN: Soft, nontender, nondistended, normoactive bowel sounds. No palpable organomegaly. MUSCULOSKELETAL: No joint swelling or deformity. EXTREMITIES: No cyanosis, clubbing, or pedal edema. NEUROLOGICAL: Gross neurological examination did not reveal any focal deficits. SKIN: No rashes. no petechiae. - Labs CBC & Chem 7: 01/08/25 05:13 01/08/25 05:13 Labs: Abnormal Lab Results - Last 24 Hours (Table) 01/07/25 01/07/25 01/08/25 Range/Units 16:07 20:42 05:13 RBC 2.44 L (4.40-5.60) X 10*6/uL Hgb 7.5 L (13.0-17.0) g/dL Hct 24.0 L (39.6-50.0) % MCV 98.4 H (80.0-97.0) FL MCHC 31.3 L (32.0-37.0) g/dL RDW 19.4 H (11.5-14.5) % MPV 12.9 H (9.5-12.2) FL Creatinine (0.6-1.5) mg/dL Est GFR (CKD-EPI) (>=60) BUN/Creatinine Ratio (12.00-20.00) Ratio Glucose (70-110) mg/dL POC Glucose (mg/dL) 166 H 180 H (70-110) mg/dL Alkaline Phosphatase (41-126) U/L Albumin (3.8-4.9) g/dL Globulin (1.6-3.3) g/dL Albumin/Globulin Ratio (1.60-3.17) Ratio 01/08/25 01/08/25 01/08/25 Range/Units 05:13 06:26 11:35 RBC (4.40-5.60) X 10*6/uL Hgb (13.0-17.0) g/dL Hct (39.6-50.0) % MCV (80.0-97.0) FL MCHC (32.0-37.0) g/dL RDW (11.5-14.5) % MPV (9.5-12.2) FL Creatinine 5.0 H (0.6-1.5) mg/dL Est GFR (CKD-EPI) 14 L (>=60) BUN/Creatinine Ratio 5.02 L (12.00-20.00) Ratio Glucose 137 H (70-110) mg/dL POC Glucose (mg/dL) 145 H 209 H (70-110) mg/dL Alkaline Phosphatase 255 H (41-126) U/L Albumin 3.1 L (3.8-4.9) g/dL Globulin 3.8 H (1.6-3.3) g/dL Albumin/Globulin Ratio 0.82 L (1.60-3.17) Ratio Assessment and Plan Assessment: MRSA bacteremia concern for infected dialysis catheter which was removed and patient is on vancomycin which will be continued -End-stage renal disease patient received hemodialysis yesterday patient cannot get any dialysis catheter clearance of bacteremia as of now patient does not have any emergent dialysis need although patient is on vancomycin which we will continue -Hypertension -Anemia of chronic kidney disease -Hyperlipidemia -Coronary artery disease -Gastroesophageal reflux disease Plan: Continue with IV daptomycin and oral rifampin Follow-up blood culture from 01/03 Infectious disease consult in place, with plan to clear him to place another dialysis catheter once culture is finalized Nephrology team on the case Cardiology team consult Further recommendation based on the clinical course DVT prophylaxis: Protonix DVT prophylaxis: Subcutaneous heparin Prognosis is guarded
--- NOTE | 2025-01-08 12:11 | P.PN ---
Subjective Patient is seen for follow-up for end-stage renal disease. Status post temporary dialysis catheter placement on 01/05/2025. Patient received dialysis for 3 days and dialysis catheter was discontinued yesterday. Blood cultures from 01/03/2025 are negative so far No complaints of shortness of breath. Objective - Vital Signs Vital signs: Vital Signs Temp 98.2 F 01/08/25 07:10 Pulse 75 01/08/25 07:10 Resp 18 01/08/25 07:10 BP 154/90 01/08/25 07:10 Pulse Ox 97 01/08/25 07:10 FiO2 Intake & Output 01/07/25 01/08/25 01/08/25 18:59 06:59 18:59 Intake Total 400 550 Output Total 4400 Balance -4000 550 Intake: Oral 550 Hemodialysis 400 Output: Hemodialysis 2400 Hemodialysis Net Amount 2000 Other: Voiding Method Toilet Toilet Urinal Urinal # Voids 2 - Exam Patient is awake, comfortable, no acute distress. Alert oriented x 3 Examination of the lungs bilateral breath sounds are heard Examination of lower extremities shows trace edema. No erythema or tenderness noted in the right upper extremity. 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 - Labs CBC & Chem 7: 01/08/25 05:13 01/08/25 05:13 Labs: Abnormal Lab Results - Last 24 Hours (Table) 01/07/25 01/07/25 01/08/25 Range/Units 16:07 20:42 05:13 RBC 2.44 L (4.40-5.60) X 10*6/uL Hgb 7.5 L (13.0-17.0) g/dL Hct 24.0 L (39.6-50.0) % MCV 98.4 H (80.0-97.0) FL MCHC 31.3 L (32.0-37.0) g/dL RDW 19.4 H (11.5-14.5) % MPV 12.9 H (9.5-12.2) FL Creatinine (0.6-1.5) mg/dL Est GFR (CKD-EPI) (>=60) BUN/Creatinine Ratio (12.00-20.00) Ratio Glucose (70-110) mg/dL POC Glucose (mg/dL) 166 H 180 H (70-110) mg/dL Alkaline Phosphatase (41-126) U/L Albumin (3.8-4.9) g/dL Globulin (1.6-3.3) g/dL Albumin/Globulin Ratio (1.60-3.17) Ratio 01/08/25 01/08/25 01/08/25 Range/Units 05:13 06:26 11:35 RBC (4.40-5.60) X 10*6/uL Hgb (13.0-17.0) g/dL Hct (39.6-50.0) % MCV (80.0-97.0) FL MCHC (32.0-37.0) g/dL RDW (11.5-14.5) % MPV (9.5-12.2) FL Creatinine 5.0 H (0.6-1.5) mg/dL Est GFR (CKD-EPI) 14 L (>=60) BUN/Creatinine Ratio 5.02 L (12.00-20.00) Ratio Glucose 137 H (70-110) mg/dL POC Glucose (mg/dL) 145 H 209 H (70-110) mg/dL Alkaline Phosphatase 255 H (41-126) U/L Albumin 3.1 L (3.8-4.9) g/dL Globulin 3.8 H (1.6-3.3) g/dL Albumin/Globulin Ratio 0.82 L (1.60-3.17) Ratio Assessment and Plan Assessment: 1. End-stage renal disease maintained on hemodialysis on Friday schedule via permacath. 2. MRSA bacteremia. AV graft excised earlier this year in November due to bacteremia. Status post removal of permacath. Blood cultures positive this admission as well. No abscess noted on CT of the upper extremity. There is a clip that was noted on CT scan which may be the source of persistent bacteremia as per ID but not come from by vascular. Repeat blood cultures are negative from 01/03/2025. Status postplacement of temporary dialysis catheter and subsequent removal on 01/07/2025 3. Anemia of chronic kidney disease. On . 4. Hypertension with chronic kidney disease. Plan: Possible permacath placement on Friday and hemodialysis on Friday. Blood cultures from 01/03/2025 negative thus far
--- NOTE | 2025-01-08 15:20 | P.PN ---
Subjective Progress Note Date: 01/08/25 Principal diagnosis: Reason for follow-up is MRSA bacteremia Patient is a 44-year-old -[place] male with a past medical history significant for end-stage renal disease on dialysis he recently did have a prolonged hospital stay with MRSA bacteremia related to the right upper extremity infected graft which was subsequently discontinued and complete 6-week course of IV antibiotics presented back to the hospital with bacteremia concern for possible catheter related which has been discontinued. On today's evaluation that is 01/08/2025, patient did not have any fever and denies any chills, patient is breathing comfortably on room air, patient with no chest pain or cough patient did not have any abdominal pain nausea vomiting or any loose stools. Patient white count is 4.69, creatinine is 5.02 blood culture from 01/03/2025 has been negative so far Objective - Vital Signs Vital signs: Vital Signs Temp 97.3 F L 01/08/25 13:44 Pulse 72 01/08/25 13:44 Resp 18 01/08/25 13:44 BP 147/91 01/08/25 13:44 Pulse Ox 100 01/08/25 13:44 FiO2 Intake & Output 01/07/25 01/08/25 01/08/25 18:59 06:59 18:59 Intake Total 400 550 Output Total 4400 Balance -4000 550 Intake: Oral 550 Hemodialysis 400 Output: Hemodialysis 2400 Hemodialysis Net Amount 2000 Other: Voiding Method Toilet Toilet Urinal Urinal # Voids 2 - Exam GENERAL DESCRIPTION: Middle-age male lying in bed in no distress RESPIRATORY SYSTEM: Unlabored breathing , decreased breath sounds at bases HEART: S1 S2 regular rate and rhythm , ABDOMEN: Soft , no tenderness EXTREMITIES: No edema feet - Labs CBC & Chem 7: 01/08/25 05:13 01/08/25 05:13 Labs: Abnormal Lab Results - Last 24 Hours (Table) 01/07/25 01/07/25 01/08/25 Range/Units 16:07 20:42 05:13 RBC 2.44 L (4.40-5.60) X 10*6/uL Hgb 7.5 L (13.0-17.0) g/dL Hct 24.0 L (39.6-50.0) % MCV 98.4 H (80.0-97.0) FL MCHC 31.3 L (32.0-37.0) g/dL RDW 19.4 H (11.5-14.5) % MPV 12.9 H (9.5-12.2) FL Creatinine (0.6-1.5) mg/dL Est GFR (CKD-EPI) (>=60) BUN/Creatinine Ratio (12.00-20.00) Ratio Glucose (70-110) mg/dL POC Glucose (mg/dL) 166 H 180 H (70-110) mg/dL Alkaline Phosphatase (41-126) U/L Albumin (3.8-4.9) g/dL Globulin (1.6-3.3) g/dL Albumin/Globulin Ratio (1.60-3.17) Ratio 01/08/25 01/08/25 01/08/25 Range/Units 05:13 06:26 11:35 RBC (4.40-5.60) X 10*6/uL Hgb (13.0-17.0) g/dL Hct (39.6-50.0) % MCV (80.0-97.0) FL MCHC (32.0-37.0) g/dL RDW (11.5-14.5) % MPV (9.5-12.2) FL Creatinine 5.0 H (0.6-1.5) mg/dL Est GFR (CKD-EPI) 14 L (>=60) BUN/Creatinine Ratio 5.02 L (12.00-20.00) Ratio Glucose 137 H (70-110) mg/dL POC Glucose (mg/dL) 145 H 209 H (70-110) mg/dL Alkaline Phosphatase 255 H (41-126) U/L Albumin 3.1 L (3.8-4.9) g/dL Globulin 3.8 H (1.6-3.3) g/dL Albumin/Globulin Ratio 0.82 L (1.60-3.17) Ratio Assessment and Plan (1) Bacteremia due to methicillin resistant Staphylococcus aureus Current Visit: Yes Status: Acute Code(s): R78.81 - BACTEREMIA; B95.62 - METHICILLIN RESIS STAPH INFCT CAUSING DISEASES [facility] SNOMED Code(s): 64344225701921235 Plan: 1patient with MRSA bacteremia source questionably permacatheter has been discontinued however the patient CT of the right upper extremity with contrast which was reviewed with radiologist there is a clip at the right upper end question of any focus of infection and this has been discussed with the vascular surgery and explained to the patient and the in layman term arrangements were made for the patient to be transferred to [facility] however both the patient and the refused that transfer 2-patient blood cultures from 01/03/2025 has been negative so far if there remains to be negative will be able to get a permacatheter on Friday we will also recommend repeating a ISIDORO before discharge to make sure no evidence of any endovascular source for this recurrent bacteremia 3-for now continue with the daptomycin Dictation was produced using [employer] dictation software. please excuse any grammatical, word or spelling errors. Time with Patient: Less than 30
[2025-01-08 17:11] LABS: Glucose,Whole Blood 102 mg/dL (70-110)
[2025-01-08 20:11] LABS: Glucose,Whole Blood 162 mg/dL (70-110)
[2025-01-09 06:08] LABS: Glucose,Whole Blood 130 mg/dL (70-110)
--- NOTE | 2025-01-09 11:36 | P.PN ---
Subjective 44-year-old -[place] male came in because of MRSA bacteremia. Patient had a right upper extremity infected graft which was subsequently discontinued during his previous hospitalization because of persistent MRSA bacteremia. Patient had a ISIDORO at that time and other extensive workup including CT angio all of which are negative for endocarditis and lung abscess. Patient completed 6 weeks of antibiotic therapy after his first negative culture that was on 11/13/2024. Patient was admitted for cellulitis at the time cultures were obtained and they came back positive for MRSA patient denies any fever chills does not have any elevated white count. Patient is admitted for possible bacteremia with MRSA and concern for dialysis catheter infection which was subsequently removed yesterday. Repeat cultures are still pending and patient is presently on IV vancomycin. Patient denied any symptoms at this time 01/01/2025 1patient being admitted to the hospital after he was noted to have a positive blood culture in outpatient setting 2021 positive for MRSA as per discussion with nephrology in this patient who did have a complicated course with infected right upper extremity graft which was subsequently discontinued and the patient received almost 6 weeks of IV daptomycin from the negative blood culture and also have extensive workup on his last admission including a ISIDORO that was negative for any vegetation and WBC scan was negative, no possible source for bacteremia could be related to the tunneled dialysis catheter has no other obvious focus of infection 2-vascular surgery seen the patient catheter has been discontinued 3- patient did have r CT of the right upper extremity with contrast which was r eviewed with radiologist there is a clip at the right upper end question of any focus of infection 4-patient culture has been repeated document clearance will also obtain an WBC scan continue with the vancomycin have multiple question concern answered01/01/2025 01/02/2025 Patient is seen and evaluated in room at bedside; discussed with nursing staff and no specific complaints reported Vital signs are stable temperature 98.4, pulse 70, respirations 17, blood pressure 163/86 Lab review shows WBC 6.0, hemoglobin 7.7 and platelet count of 162, sodium 135, potassium 4.7, BUN 53 with creatinine of 9.3 patient being admitted to the hospital after he was noted to have a positive blood culture in outpatient setting 2021 positive for MRSA as per discussion with nephrology in this patient who did have a complicated course with infected right upper extremity graft which was subsequently discontinued and the patient received almost 6 weeks of IV daptomycin from the negative blood culture and also have extensive workup on his last admission including a ISIDORO that was negative for any vegetation and WBC scan was negative, no possible source for bacteremia could be related to the tunneled dialysis catheter has no other obvious focus of infection -vascular surgery seen the patient catheter has been discontinued -patient did have CT of the right upper extremity with contrast which was reviewed with radiologist there is a clip at the right upper end question of any focus of infection -patient culture has been repeated 12/31/2024 and so far negative with the remains to be negative at 72-hour he is going to get a new permacatheter currently waiting for WBC scan continue with the vancomycin 01/03 This is a pleasant 44 years old -[place] male with a known case of hemodialysis and presents with bacteremia secondary to MRSA with history of ischemic cardiomyopathy. [place] source is infected dialysis catheter which was removed Patient lying in bed states he feels better, however he is lethargic, slow to answer, does not look confused Denies any other specific complaints His right upper extremity is with minimal cellulitis, puncture wound from his right upper chest hemodialysis catheter which was removed. Looks okay with no surrounding cellulitis, no purulent discharge. Dressing is in place. Patient currently kept on IV vancomycin 01/04. Patient seen and examined. WBC scan done was normal. Denies any shortness of breath. Denies any chest pain. Vital signs stable. 01/05. Patient seen and examined. Blood work done this morning showed sodium 134, potassium 5.8, chloride 99, carbon is a 21, BUN 84, creatinine 11.80. Discussed with vascular surgery and ID, both recommended this time patient needs to be transferred to a tertiary level center. [facility] contacted, they will review the case and let us know if they will accept 01/06. Patient seen examined. Patient had a temporary catheter placed yesterday, currently undergoing dialysis. Patient has been afebrile. Blood cultures on 01/03 is negative so . Patient seen and examined. Patient received bed offer from [facility] regarding transfer, more than 1 hour was spent in coordinating care for transfer to [facility] but patient and his at this time declined transfer, they are aware that both ID and vascular surgery at this time are recommending transfer 01/08 Patient generally weak No new complaints He is sugars controlled His antibiotics were updated recently to oral rifampin and IV daptomycin pending the results of repeat blood culture from 01/03 01/09 Patient with no new complaint Blood culture from 01/03 finalized today showing no growth in 5 days Patient pablo on IV daptomycin Infectious disease remains on the case for further recommendation We will continue monitoring Objective - Vital Signs Vital signs: Vital Signs Temp 97.7 F 01/09/25 06:45 Pulse 61 01/09/25 06:45 Resp 18 01/09/25 06:45 BP 149/90 01/09/25 06:45 Pulse Ox 100 01/09/25 06:45 FiO2 Intake & Output 01/08/25 01/09/25 01/09/25 18:59 06:59 18:59 Other: Voiding Method Toilet Toilet Urinal Urinal # Voids 3 2 # Bowel Movements 1 - Exam -GENERAL: The patient is alert and oriented x3, not in any acute distress. Well developed, well nourished. Lethargic HEENT: Pupils are round and equally reacting to light. EOMI. No scleral icterus. No conjunctival pallor. Normocephalic, atraumatic. No pharyngeal erythema. No thyromegaly. CARDIOVASCULAR: S1 and S2 present. No murmurs, rubs, or gallops. -PULMONARY: Chest is clear to auscultation, no wheezing , no crackles. Right upper chest wall puncture wound with no surrounding cellulitis ABDOMEN: Soft, nontender, nondistended, normoactive bowel sounds. No palpable organomegaly. MUSCULOSKELETAL: No joint swelling or deformity. EXTREMITIES: No cyanosis, clubbing, or pedal edema. NEUROLOGICAL: Gross neurological examination did not reveal any focal deficits. SKIN: No rashes. no petechiae. - Labs CBC & Chem 7: 01/08/25 05:13 01/08/25 05:13 Labs: Abnormal Lab Results - Last 24 Hours (Table) 01/08/25 01/08/25 01/09/25 Range/Units 11:35 20:10 06:07 POC Glucose (mg/dL) 209 H 162 H 130 H (70-110) mg/dL Microbiology - Last 24 Hours (Table) 01/03/25 12:15 Blood Culture - Final Blood Assessment and Plan Assessment: MRSA bacteremia concern for infected dialysis catheter which was removed and patient is on vancomycin which will be continued -End-stage renal disease patient received hemodialysis yesterday patient cannot get any dialysis catheter clearance of bacteremia as of now patient does not have any emergent dialysis need although patient is on vancomycin which we will continue -Hypertension -Anemia of chronic kidney disease -Hyperlipidemia -Coronary artery disease -Gastroesophageal reflux disease Plan: Continue with IV daptomycin and oral rifampin Follow-up blood culture from 01/03 Infectious disease consult in place, with plan to clear him to place another dialysis catheter once culture is finalized Nephrology team on the case Cardiology team consult Further recommendation based on the clinical course DVT prophylaxis: Protonix DVT prophylaxis: Subcutaneous heparin Prognosis is guarded
[2025-01-09 11:45] LABS: Glucose,Whole Blood 76 mg/dL (70-110)
--- NOTE | 2025-01-09 12:19 | P.PN ---
Subjective Patient is seen for follow-up for end-stage renal disease. Status post temporary dialysis catheter placement on 01/05/2025. Patient received dialysis for 3 consecutive consecutive days and dialysis catheter was discontinued on 01/07/2025 Blood cultures from 01/03/2025 are negative so far No complaints of shortness of breath. Objective - Vital Signs Vital signs: Vital Signs Temp 97.7 F 01/09/25 06:45 Pulse 61 01/09/25 06:45 Resp 18 01/09/25 06:45 BP 149/90 01/09/25 06:45 Pulse Ox 100 01/09/25 06:45 FiO2 Intake & Output 01/08/25 01/09/25 01/09/25 18:59 06:59 18:59 Other: Voiding Method Toilet Toilet Urinal Urinal # Voids 3 2 # Bowel Movements 1 - Exam Patient is awake, comfortable, no acute distress. Alert oriented x 3 Examination of lower extremities shows trace edema. No erythema or tenderness noted in the right upper extremity. [employer] INSPECTOR exam grossly intact - Labs CBC & Chem 7: 01/08/25 05:13 01/08/25 05:13 Labs: Abnormal Lab Results - Last 24 Hours (Table) 01/08/25 01/09/25 Range/Units 20:10 06:07 POC Glucose (mg/dL) 162 H 130 H (70-110) mg/dL Microbiology - Last 24 Hours (Table) 01/03/25 12:15 Blood Culture - Final Blood Assessment and Plan Assessment: 1. End-stage renal disease maintained on hemodialysis on Friday schedule via permacath. 2. MRSA bacteremia. AV graft excised earlier this year in November due to bacteremia. Status post removal of permacath. Blood cultures positive this admission as well. No abscess noted on CT of the upper extremity. There is a clip that was noted on CT scan which may be the source of persistent bacteremia as per ID but not come from by vascular. Repeat blood cultures are negative from 01/03/2025. Status postplacement of temporary dialysis catheter and subsequent removal on 01/07/2025 3. Anemia of chronic kidney disease. On . 4. Hypertension with chronic kidney disease. Plan: Possible permacath placement on Friday and hemodialysis on Friday. Blood cultures from 01/03/2025 negative thus far
--- NOTE | 2025-01-09 13:04 | P.PN ---
Subjective Progress Note Date: 01/09/25 Patient seen and examined. No complaints. No concerns. No fever or chills Objective - Vital Signs Vital signs: Vital Signs Temp 97.7 F 01/09/25 06:45 Pulse 61 01/09/25 06:45 Resp 18 01/09/25 06:45 BP 149/90 01/09/25 06:45 Pulse Ox 100 01/09/25 06:45 FiO2 Intake & Output 01/08/25 01/09/25 01/09/25 18:59 06:59 18:59 Other: Voiding Method Toilet Toilet Urinal Urinal # Voids 3 2 # Bowel Movements 1 - Exam No respiratory distress. No acute distress. Right chest wall previous catheter site clean and dry. Right upper extremity no erythema. No open wounds - Labs CBC & Chem 7: 01/08/25 05:13 01/08/25 05:13 Labs: Abnormal Lab Results - Last 24 Hours (Table) 01/08/25 01/09/25 Range/Units 20:10 06:07 POC Glucose (mg/dL) 162 H 130 H (70-110) mg/dL Microbiology - Last 24 Hours (Table) 01/03/25 12:15 Blood Culture - Final Blood Assessment and Plan Assessment: 1. MRSA bacteremia, improved, negative cultures since 01/03 without repeated culture 2. Right IJ tunnel catheter 3. End-stage renal disease on hemodialysis 4. Recent persistent MRSA bacteremia status post right upper extremity HD graft explantation and antibiotics 5. Coronary artery disease 6. Heart failure Plan: 1. Continue antibiotics as ordered. Plan for tunneled catheter tomorrow. N.p.o. after midnight
--- NOTE | 2025-01-09 16:11 | P.PN ---
Subjective Progress Note Date: 01/09/25 Principal diagnosis: Reason for follow-up is MRSA bacteremia Patient is a 44-year-old -Citizen Of [place] male with a past medical history significant for end-stage renal disease on dialysis he recently did have a prolonged hospital stay with MRSA bacteremia related to the right upper extremity infected graft which was subsequently discontinued and complete 6-week course of IV antibiotics presented back to the hospital with bacteremia concern for possible catheter related which has been discontinued. On today's evaluation that is 01/09/2025, Patient is afebrile patient is cur rently on room air and denies having any shortness of breath, the patient denies any chest pain or cough, the patient denies any nausea vomiting did not have any abdominal pain and no diarrhea. No new lab has been obtained today blood culture from 01/03/2025 negative so far Objective - Vital Signs Vital signs: Vital Signs Temp 97.7 F 01/09/25 06:45 Pulse 61 01/09/25 06:45 Resp 18 01/09/25 06:45 BP 149/90 01/09/25 06:45 Pulse Ox 100 01/09/25 06:45 FiO2 Intake & Output 01/08/25 01/09/25 01/09/25 18:59 06:59 18:59 Other: Voiding Method Toilet Toilet Urinal Urinal # Voids 3 2 # Bowel Movements 1 - Exam GENERAL DESCRIPTION: Middle-age male lying in bed in no distress RESPIRATORY SYSTEM: Unlabored breathing , decreased breath sounds at bases HEART: S1 S2 regular rate and rhythm , ABDOMEN: Soft , no tenderness EXTREMITIES: No edema feet - Labs CBC & Chem 7: 01/08/25 05:13 01/08/25 05:13 Labs: Abnormal Lab Results - Last 24 Hours (Table) 01/08/25 01/09/25 Range/Units 20:10 06:07 POC Glucose (mg/dL) 162 H 130 H (70-110) mg/dL Microbiology - Last 24 Hours (Table) 01/03/25 12:15 Blood Culture - Final Blood Assessment and Plan (1) Bacteremia due to methicillin resistant Staphylococcus aureus Current Visit: Yes Status: Acute Code(s): R78.81 - BACTEREMIA; B95.62 - METHICILLIN RESIS STAPH INFCT CAUSING DISEASES [facility] SNOMED Code(s): 89146839482834479 Plan: 1patient with MRSA bacteremia source questionably permacatheter has been discontinued however the patient CT of the right upper extremity with contrast which was reviewed with radiologist there is a clip at the right upper end question of any focus of infection and this has been discussed with the vascular surgery and explained to the patient and the in layman term arrangements were made for the patient to be transferred to [facility] however both the patient and the refused that transfer 2-patient blood cultures from 01/03/2025 has been negative so far if there remains to be negative by tomorrow, patient will be able to get a permacatheter on Friday 3we will also recommend repeating a ISIDORO before discharge to make sure no evidence of any endovascular source for this recurrent bacteremia 4-for now continue with the daptomycin, plan has been discussed in detail with the patient as well as at the bedside Dictation was produced using [employer] dictation software. please excuse any grammatical, word or spelling errors. Time with Patient: Less than 30
[2025-01-09 17:01] LABS: Glucose,Whole Blood 137 mg/dL (70-110)
[2025-01-09 20:16] LABS: Glucose,Whole Blood 177 mg/dL (70-110)
[2025-01-10 06:17] LABS: Glucose,Whole Blood 153 mg/dL (70-110)
[2025-01-10 11:08] LABS: Glucose,Whole Blood 121 mg/dL (70-110)
--- NOTE | 2025-01-10 11:43 | P.PN ---
Subjective Patient is seen in follow-up for end-stage renal disease. Scheduled to have permacath placed today. Will undergo dialysis after catheter placed. No active complaints. Vital signs are stable. General: No acute distress. HEENT: Head exam is unremarkable. LUNGS: No audible rhonchi or wheezes. HEART: Rate and Rhythm are regular. ABDOMEN: A nontender. EXTREMITITES: No edema. Objective - Vital Signs Vital signs: Vital Signs Temp 98.7 F 01/10/25 09:37 Pulse 71 01/10/25 09:37 Resp 16 01/10/25 09:37 BP 146/82 01/10/25 09:37 Pulse Ox 98 01/10/25 09:37 FiO2 Intake & Output 01/09/25 01/10/25 01/10/25 18:59 06:59 18:59 Other: Voiding Method Toilet Toilet Toilet Urinal Urinal Urinal # Voids 3 2 - Labs CBC & Chem 7: 01/08/25 05:13 01/08/25 05:13 Labs: Abnormal Lab Results - Last 24 Hours (Table) 01/09/25 01/09/25 01/10/25 Range/Units 16:58 20:15 06:16 POC Glucose (mg/dL) 137 H 177 H 153 H (70-110) mg/dL 01/10/25 Range/Units 11:06 POC Glucose (mg/dL) 121 H (70-110) mg/dL Assessment and Plan Plan: Assessment: 1. End-stage renal disease maintained on hemodialysis on Friday schedule via permacath. 2. MRSA bacteremia. AV graft excised earlier this year due to bacteremia. Now concerning that permacath may be the source for infection. Blood cultures positive this admission as well. No abscess noted on CT of the upper extremity. WBC scan negative. 3. Anemia of chronic kidney disease. On Aranesp. 4. Hypertension with chronic kidney disease. Stable. Plan: Hemodialysis today. Potential discharge after dialysis today. Antibiotics per ID to be continued outpatient.
[2025-01-10] MEDS: MIDAZOLAM 2 MG/2 ML VIAL IVP ONE (14:07)
[2025-01-10] MEDS: fentaNYL (PF) 50 MCG/1 ML VIAL IVP ONE (14:07)
[2025-01-10] MEDS: LIDOCAINE 1% INJ 10MG/ML (20 ML MDV) SQ ONE (14:07)
[2025-01-10] MEDS: SODIUM CHLORIDE 0.9% 500 ML 500 ML IV ONE (14:16)
--- NOTE | 2025-01-10 14:45 | P.OP ---
Date of Procedure: 01/10/25 Preoperative Diagnosis: End-stage renal disease on hemodialysis History of infected access Postoperative Diagnosis: Same Procedure(s) Performed: Left tunneled hemodialysis catheter via left internal jugular vein under ultrasound and fluoroscopic guidance Conscious sedation x 35 minutes Anesthesia: local Surgeon: Maninder Moore Estimated Blood Loss (ml): 5 Pathology: none sent Condition: stable Disposition: floor Indications for Procedure: 44-year-old gentleman with history of end-stage renal disease on hemodialysis who previously had an infected right upper extremity arteriovenous graft which was explanted as well as multiple catheters in the right chest that have been in fected presents to the Sw[facility] for placement of another tunneled hemodialysis catheter after his blood cultures have been negative. Description of Procedure: After written and informed consent was obtained for the patient and all risk, benefits and complications were described the patient was brought to the Sw[facility] and laid in the supine position. The area of the neck and chest were prepped and draped in usual sterile fashion. Antibiotics were administered prior to incision timeout was performed in normal fashion. Utilizing ultrasound the left internal jugular vein was located and shown to be patent without any thrombus and compressible. Under ultrasound guidance the area overlying the vein was infused with local anesthetic. It was then accessed with a mult ipurpose needle and guidewire was placed and directed into the inferior vena cava. Attention was then placed to the chest wall and local anesthetic was infused overlying approximately 2 cm distal to the angle of the clavicle. Small incision was then created and a 23 cm palindrome tunneled catheter was tunneled from the chest incision to the neck incision after local anesthetic was infused along the tract. Serial dilation was then performed under direct visualization of fluoroscopy and the breakaway sheath was placed. The catheter was then guided through the breakaway sheath and the sheath was removed. The catheter was then assessed for patency and leyla and flushed easily and was hep-locked. The neck incision was then closed with a 4-0 Vicryl suture in interrupted fashion. The catheter was secured in place with nylon suture x 2 the area was then cleansed and due to his history of bleeding in the past we placed a Akbar dressing to help with hemostasis. Tegaderm dressings were also placed in normal fashion. The patient tolerated procedure well and was sent back to his room for recovery.
[2025-01-10 16:25] LABS: Glucose,Whole Blood 103 mg/dL (70-110)
--- NOTE | 2025-01-10 16:25 | P.PN ---
Subjective Progress Note Date: 01/10/25 Principal diagnosis: Reason for follow-up is MRSA bacteremia Patient is a 44-year-old -[place] male with a past medical history significant for end-stage renal disease on dialysis he recently did have a prolonged hospital stay with MRSA bacteremia related to the right upper extremity infected graft which was subsequently discontinued and complete 6-week course of IV antibiotics presented back to the hospital with bacteremia concern for possible catheter related which has been discontinued. On today's evaluation that is 01/10/2025, patient has been afebrile, patient is breathing comfortably and is currently on room air, patient denies having any significant cough no chest pain, patient denies nausea vomiting or diarrhea and no abdominal pain. No new lab has been repeated today blood culture from 01/03/2025 has been negative Objective - Vital Signs Vital signs: Vital Signs Temp 98.7 F 01/10/25 09:37 Pulse 71 01/10/25 09:37 Resp 16 01/10/25 09:37 BP 146/82 01/10/25 09:37 Pulse Ox 98 01/10/25 09:37 FiO2 Intake & Output 01/09/25 01/10/25 01/10/25 18:59 06:59 18:59 Other: Voiding Method Toilet Toilet Toilet Urinal Urinal Urinal # Voids 3 2 - Exam GENERAL DESCRIPTION: Middle-age male lying in bed in no distress RESPIRATORY SYSTEM: Unlabored breathing , decreased breath sounds at bases HEART: S1 S2 regular rate and rhythm , ABDOMEN: Soft , no tenderness EXTREMITIES: No edema feet - Labs CBC & Chem 7: 01/08/25 05:13 01/08/25 05:13 Labs: Abnormal Lab Results - Last 24 Hours (Table) 01/09/25 01/09/25 01/10/25 Range/Units 16:58 20:15 06:16 POC Glucose (mg/dL) 137 H 177 H 153 H (70-110) mg/dL 01/10/25 Range/Units 11:06 POC Glucose (mg/dL) 121 H (70-110) mg/dL Assessment and Plan (1) Bacteremia due to methicillin resistant Staphylococcus aureus Current Visit: Yes Status: Acute Code(s): R78.81 - BACTEREMIA; B95.62 - METHICILLIN RESIS STAPH INFCT CAUSING DISEASES [facility] SNOMED Code(s): 90211897142646266 Plan: 1patient with MRSA bacteremia source questionably permacatheter has been discontinued however the patient CT of the right upper extremity with contrast which was reviewed with radiologist there is a clip at the right upper end question of any focus of infection and this has been discussed with the vascular surgery and explained to the patient and the in layman term arrangements were made for the patient to be transferred to [facility] however both the patient and the refused that transfer 2-patient blood cultures from 01/03/2025 has been negative so far if there remains to be negative by tomorrow, patient will be able to get a permacatheter on Friday 3patient has refused ISIDORO and no other risk of refusing, at the bedside and he has expressed the same wishes to the medical physician Sheet 4-patient is scheduled for a permacatheter placement today afterwards she will be able to go home from ID standpoint plan is for 6-week course of daptomycin at 800 mg post each dialysis prescription was provided to the case specialist he has been advised to follow-up in the office and would likely need lifelong suppressive antibiotic therapy after completion of his IV daptomycin all questi ons answered Dictation was produced using [employer] dictation software. please excuse any grammatical, word or spelling errors. Time with Patient: Less than 30
[2025-01-10] MEDS: DESMOPRESSIN ACETATE 24 MCG in SODIUM CHLORIDE 0.9% 50 ML IVPB ONE (19:21)
--- NOTE | 2025-01-10 20:18 | P.PN ---
Subjective 44-year-old -[place] male came in because of MRSA bacteremia. Patient had a right upper extremity infected graft which was subsequently discontinued during his previous hospitalization because of persistent MRSA bacteremia. Patient had a ISIDORO at that time and other extensive workup including CT angio all of which are negative for endocarditis and lung abscess. Patient completed 6 weeks of antibiotic therapy after his first negative culture that was on 11/13/2024. Patient was admitted for cellulitis at the time cultures were obtained and they came back positive for MRSA patient denies any fever chills does not have any elevated white count. Patient is admitted for possible bacteremia with MRSA and concern for dialysis catheter infection which was subsequently removed yesterday. Repeat cultures are still pending and patient is presently on IV vancomycin. Patient denied any symptoms at this time 01/01/2025 1patient being admitted to the hospital after he was noted to have a positive blood culture in outpatient setting 2021 positive for MRSA as per discussion with nephrology in this patient who did have a complicated course with infected right upper extremity graft which was subsequently discontinued and the patient received almost 6 weeks of IV daptomycin from the negative blood culture and also have extensive workup on his last admission including a ISIDORO that was negative for any vegetation and WBC scan was negative, no possible source for bacteremia could be related to the tunneled dialysis catheter has no other obvious focus of infection 2-vascular surgery seen the patient catheter has been discontinued 3- patient did have r CT of the right upper extremity with contrast which was r eviewed with radiologist there is a clip at the right upper end question of any focus of infection 4-patient culture has been repeated document clearance will also obtain an WBC scan continue with the vancomycin have multiple question concern answered01/01/2025 01/02/2025 Patient is seen and evaluated in room at bedside; discussed with nursing staff and no specific complaints reported Vital signs are stable temperature 98.4, pulse 70, respirations 17, blood pressure 163/86 Lab review shows WBC 6.0, hemoglobin 7.7 and platelet count of 162, sodium 135, potassium 4.7, BUN 53 with creatinine of 9.3 patient being admitted to the hospital after he was noted to have a positive blood culture in outpatient setting 2021 positive for MRSA as per discussion with nephrology in this patient who did have a complicated course with infected right upper extremity graft which was subsequently discontinued and the patient received almost 6 weeks of IV daptomycin from the negative blood culture and also have extensive workup on his last admission including a ISIDORO that was negative for any vegetation and WBC scan was negative, no possible source for bacteremia could be related to the tunneled dialysis catheter has no other obvious focus of infection -vascular surgery seen the patient catheter has been discontinued -patient did have CT of the right upper extremity with contrast which was reviewed with radiologist there is a clip at the right upper end question of any focus of infection -patient culture has been repeated 12/31/2024 and so far negative with the remains to be negative at 72-hour he is going to get a new permacatheter currently waiting for WBC scan continue with the vancomycin 01/03 This is a pleasant 44 years old -[place] male with a known case of hemodialysis and presents with bacteremia secondary to MRSA with history of ischemic cardiomyopathy. [place] source is infected dialysis catheter which was removed Patient lying in bed states he feels better, however he is lethargic, slow to answer, does not look confused Denies any other specific complaints His right upper extremity is with minimal cellulitis, puncture wound from his right upper chest hemodialysis catheter which was removed. Looks okay with no surrounding cellulitis, no purulent discharge. Dressing is in place. Patient currently kept on IV vancomycin 01/04. Patient seen and examined. WBC scan done was normal. Denies any shortness of breath. Denies any chest pain. Vital signs stable. 01/05. Patient seen and examined. Blood work done this morning showed sodium 134, potassium 5.8, chloride 99, carbon is a 21, BUN 84, creatinine 11.80. Discussed with vascular surgery and ID, both recommended this time patient needs to be transferred to a tertiary level center. [facility] contacted, they will review the case and let us know if they will accept 01/06. Patient seen examined. Patient had a temporary catheter placed yesterday, currently undergoing dialysis. Patient has been afebrile. Blood cultures on 01/03 is negative so . Patient seen and examined. Patient received bed offer from [facility] regarding transfer, more than 1 hour was spent in coordinating care for transfer to [facility] but patient and his at this time declined transfer, they are aware that both ID and vascular surgery at this time are recommending transfer 01/08 Patient generally weak No new complaints He is sugars controlled His antibiotics were updated recently to oral rifampin and IV daptomycin pending the results of repeat blood culture from 01/03 01/09 Patient with no new complaint Blood culture from 01/03 finalized today showing no growth in 5 days Patient pablo on IV daptomycin Infectious disease remains on the case for further recommendation We will continue monitoring 01/10 Patient overall feels fine He denies any new complaint no chest pain no dyspnea no GI/ symptom I told him with the recommendation of infectious disease team to undergo ISIDORO, patient told me he does not want this procedure, he understands he had it before and he understands and told me it is to find a focus of infection and his heart and he confirmed to me he does not want this procedure. Patient is s/p tunneled hemodialysis catheter placement in the left internal jugular vein today. After that patient will be discharged on prolonged course of IV antibiotics daptomycin with hemodialysis as well as oral rifampin. Possible discharge today or tomorrow pending procedure hemodialysis catheter placement Objective - Vital Signs Vital signs: Vital Signs Temp 98 F 01/10/25 19:29 Pulse 76 01/10/25 19:29 Resp 18 01/10/25 19:29 BP 178/110 01/10/25 19:29 Pulse Ox 98 01/10/25 09:37 FiO2 Intake & Output 01/10/25 01/10/25 01/11/25 06:59 18:59 06:59 Intake Total 25 500 Output Total 4500 Balance 25 -4000 Intake: IV 25 Hemodialysis 500 Output: Hemodialysis 2500 Hemodialysis Net Amount 2000 Other: Voiding Method Toilet Toilet Urinal Urinal # Voids 2 3 - Exam -GENERAL: The patient is alert and oriented x3, not in any acute distress. Well developed, well nourished. Lethargic HEENT: Pupils are round and equally reacting to light. EOMI. No scleral icterus. No conjunctival pallor. Normocephalic, atraumatic. No pharyngeal erythema. No thyromegaly. CARDIOVASCULAR: S1 and S2 present. No murmurs, rubs, or gallops. -PULMONARY: Chest is clear to auscultation, no wheezing , no crackles. Right upper chest wall puncture wound with no surrounding cellulitis ABDOMEN: Soft, nontender, nondistended, normoactive bowel sounds. No palpable organomegaly. MUSCULOSKELETAL: No joint swelling or deformity. EXTREMITIES: No cyanosis, clubbing, or pedal edema. NEUROLOGICAL: Gross neurological examination did not reveal any focal deficits. SKIN: No rashes. no petechiae. - Labs CBC & Chem 7: 01/08/25 05:13 01/08/25 05:13 Labs: Abnormal Lab Results - Last 24 Hours (Table) 01/09/25 01/10/25 01/10/25 Range/Units 20:15 06:16 11:06 POC Glucose (mg/dL) 177 H 153 H 121 H (70-110) mg/dL Assessment and Plan Assessment: MRSA bacteremia concern for infected dialysis catheter which was removed and patient is on vancomycin which will be continued -End-stage renal disease patient received hemodialysis yesterday patient cannot get any dialysis catheter clearance of bacteremia as of now patient does not have any emergent dialysis need although patient is on vancomycin which we will continue -Hypertension -Anemia of chronic kidney disease -Hyperlipidemia -Coronary artery disease -Gastroesophageal reflux disease Plan: Continue with IV daptomycin and oral rifampin, patient will require a prolonged course of IV antibiotic Follow-up blood culture from 01/03 has been negative final results therefore patient planned for tunneled hemodialysis catheter placement today 01/10 Patient declined ISIDORO recommended by ID team prior to discharge Infectious disease consult in place, with plan to clear him to place another dialysis catheter once culture is finalized Nephrology team on the case Cardiology team consult Further recommendation based on the clinical course DVT prophylaxis: Protonix DVT prophylaxis: Subcutaneous heparin Prognosis is guarded Possible discharge tomorrow
[2025-01-10 21:14] LABS: Glucose,Whole Blood 161 mg/dL (70-110)
[2025-01-10 22:59] LABS: Anisocytosis Slight; Basophils % (A) 0 %; Eosinophils # (A) 0.1 k/uL (0-0.7); Eosinophils % (A) 1 %; HGB 7.2 gm/dL (13.0-17.5); Hypochromasia Moderate; Lymphocytes # (A) 0.6 k/uL (1.0-4.8); Lymphocytes % (A) 14 %; MCH 32.4 pg (25.0-35.0); MCHC 32.7 g/dL (31.0-37.0); Macrocytosis Slight; Monocytes # (A) 0.3 k/uL (0-1.0); Monocytes % (A) 7 %; Neutrophils # (A) 3.3 k/uL (1.3-7.7); Neutrophils % (A) 76 %; Platelet Count 120 k/uL (150-450); RBC 2.22 m/uL (4.30-5.90); RDW 17.2 % (11.5-15.5); WBC 4.3 k/uL (3.8-10.6)
[2025-01-10 23:02] LABS: MCV 99.1 fL (80.0-100.0)
[2025-01-11] MEDS: ACETAMINOPHEN TAB 325 MG TAB PO STA (03:02)
[2025-01-11] MEDS ORDERED: ONDANSETRON 4 MG/2 ML VIAL IVP PRN (06:10)
[2025-01-11 06:12] LABS: Glucose,Whole Blood 146 mg/dL (70-110)
--- NOTE | 2025-01-11 11:02 | P.PN ---
Subjective Patient is seen in follow-up for end-stage renal disease. Permacath placed January 10, 2025. Oozing from the catheter site. Did receive DDAVP yesterday. Also completed dialysis yesterday. Vital signs are stable. General: No acute distress. HEENT: Head exam is unremarkable. LUNGS: No audible rhonchi or wheezes. HEART: Rate and Rhythm are regular. ABDOMEN: A nontender. EXTREMITITES: No edema. Objective - Vital Signs Vital signs: Vital Signs Temp 98.5 F 01/11/25 08:05 Pulse 75 01/11/25 08:05 Resp 15 01/11/25 08:05 BP 172/93 01/11/25 08:05 Pulse Ox 100 01/11/25 08:05 FiO2 Intake & Output 01/10/25 01/11/25 01/11/25 18:59 06:59 18:59 Intake Total 25 610 200 Output Total 4550 Balance 25 -3940 200 Intake: IV 25 Blood Product 110 200 Rc As-1 Unit 110 200 [id number] Hemodialysis 500 Output: Emesis 50 Hemodialysis 2500 Hemodialysis Net Amount 2000 Other: Voiding Method Toilet Toilet Toilet Urinal Urinal Urinal # Voids 3 1 - Labs CBC & Chem 7: 01/10/25 22:30 01/08/25 05:13 Labs: Abnormal Lab Results - Last 24 Hours (Table) 01/10/25 01/10/25 01/10/25 Range/Units 11:06 21:11 22:30 RBC 2.22 L (4.30-5.90) m/uL Hgb 7.2 L (13.0-17.5) gm/dL Hct 22.0 L (39.0-53.0) % RDW 17.2 H (11.5-15.5) % Plt Count 120 L (150-450) k/uL Lymphocytes # 0.6 L (1.0-4.8) k/uL POC Glucose (mg/dL) 121 H 161 H (70-110) mg/dL Crossmatch 01/11/25 01/11/25 Range/Units 00:18 06:07 RBC (4.30-5.90) m/uL Hgb (13.0-17.5) gm/dL Hct (39.0-53.0) % RDW (11.5-15.5) % Plt Count (150-450) k/uL Lymphocytes # (1.0-4.8) k/uL POC Glucose (mg/dL) 146 H (70-110) mg/dL Crossmatch See Detail Assessment and Plan Plan: Assessment: 1. End-stage renal disease maintained on hemodialysis on Friday schedule via permacath. 2. MRSA bacteremia. AV graft excised earlier this year due to bacteremia. Now concerning that permacath may be the source for infection. Blood cultures positive this admission as well. No abscess noted on CT of the upper extremity. WBC scan negative. 3. Anemia of chronic kidney disease. On Arap. 4. Hypertension with chronic kidney disease. Stable. Plan: Hemodialysis tomorrow. Antibiotics per ID to be continued outpatient. Await catheter eval by vascular surgery.
[2025-01-11 11:51] LABS: Glucose,Whole Blood 182 mg/dL (70-110)
[2025-01-11] MEDS: hydrALAZINE HCL 20 MG/ML 1 ML VIAL IVP PRN (13:17)
--- NOTE | 2025-01-11 15:23 | P.PN ---
Subjective Progress Note Date: 01/11/25 Principal diagnosis: Reason for follow-up is MRSA bacteremia Patient is a 44-year-old -Algerian male with a past medical history significant for end-stage renal disease on dialysis he recently did have a prolonged hospital stay with MRSA bacteremia related to the right upper extremity infected graft which was subsequently discontinued and complete 6-week course of IV antibiotics presented back to the hospital with bacteremia concern for possible catheter related which has been discontinued. On today's evaluation that is 01/11/2025, Patient is afebrile this morning p atient denies having any chest pain shortness of breath or cough, the patient is currently on room air, patient denies any abdominal pain no diarrhea no nausea no vomiting complaining of some bleeding from the new permacatheter. White count is 4.3 Objective - Vital Signs Vital signs: Vital Signs Temp 98.5 F 01/11/25 08:05 Pulse 75 01/11/25 08:05 Resp 15 01/11/25 08:05 BP 172/93 01/11/25 08:05 Pulse Ox 100 01/11/25 08:05 FiO2 Intake & Output 01/10/25 01/11/25 01/11/25 18:59 06:59 18:59 Intake Total 25 610 200 Output Total 4550 Balance 25 -3940 200 Intake: IV 25 Blood Product 110 200 Rc As-1 Unit 110 200 [id number] Hemodialysis 500 Output: Emesis 50 Hemodialysis 2500 Hemodialysis Net Amount 2000 Other: Voiding Method Toilet Toilet Toilet Urinal Urinal Urinal # Voids 3 1 - Exam GENERAL DESCRIPTION: Middle-age male lying in bed in no distress RESPIRATORY SYSTEM: Unlabored breathing , decreased breath sounds at bases HEART: S1 S2 regular rate and rhythm , ABDOMEN: Soft , no tenderness EXTREMITIES: No edema feet - Labs CBC & Chem 7: 01/10/25 22:30 01/08/25 05:13 Labs: Abnormal Lab Results - Last 24 Hours (Table) 01/10/25 01/10/25 01/11/25 Range/Units 21:11 22:30 00:18 RBC 2.22 L (4.30-5.90) m/uL Hgb 7.2 L (13.0-17.5) gm/dL Hct 22.0 L (39.0-53.0) % RDW 17.2 H (11.5-15.5) % Plt Count 120 L (150-450) k/uL Lymphocytes # 0.6 L (1.0-4.8) k/uL POC Glucose (mg/dL) 161 H (70-110) mg/dL Crossmatch See Detail 01/11/25 Range/Units 06:07 RBC (4.30-5.90) m/uL Hgb (13.0-17.5) gm/dL Hct (39.0-53.0) % RDW (11.5-15.5) % Plt Count (150-450) k/uL Lymphocytes # (1.0-4.8) k/uL POC Glucose (mg/dL) 146 H (70-110) mg/dL Crossmatch Assessment and Plan (1) Bacteremia due to methicillin resistant Staphylococcus aureus Current Visit: Yes Status: Acute Code(s): R78.81 - BACTEREMIA; B95.62 - METHICILLIN RESIS STAPH INFCT CAUSING DISEASES CLASSD [facility] SNOMED Code(s): 87497101041579145 Plan: 1patient with MRSA bacteremia source questionably permacatheter has been discontinued however the patient CT of the right upper extremity with contrast which was reviewed with radiologist there is a clip at the right upper end question of any focus of infection and this has been discussed with the vascular surgery and explained to the patient and the in layman term arrangements were made for the patient to be transferred to [facility] however both the patient and the refused that transfer 2-patient blood cultures from 01/03/2025 has been negative so far if there remains to be negative by tomorrow, patient will be able to get a permacatheter on Friday 3patient has refused ISIDORO and no other risk of refusing, at the bedside and he has expressed the same wishes to the medical physician Sheet 4-patient is status post permacatheter placement 01/10/2025 complaining of some bleeding vascular surgery on the case 5patient will be treated with the daptomycin to finish 6-week course of therapy and close out patient follow-up prescription already provided the manager case yesterday Dictation was produced using [employer] dictation software. please excuse any grammatical, word or spelling errors. Time with Patient: Less than 30
--- NOTE | 2025-01-11 15:36 | P.PN ---
Subjective 44-year-old -Cypriot male came in because of MRSA bacteremia. Patient had a right upper extremity infected graft which was subsequently discontinued during his previous hospitalization because of persistent MRSA bacteremia. Patient had a ISIDORO at that time and other extensive workup including CT angio all of which are negative for endocarditis and lung abscess. Patient completed 6 weeks of antibiotic therapy after his first negative culture that was on 11/13/2024. Patient was admitted for cellulitis at the time cultures were obtained and they came back positive for MRSA patient denies any fever chills does not have any elevated white count. Patient is admitted for possible bacteremia with MRSA and concern for dialysis catheter infection which was subsequently removed yesterday. Repeat cultures are still pending and patient is presently on IV vancomycin. Patient denied any symptoms at this time 01/01/2025 1patient being admitted to the hospital after he was noted to have a positive blood culture in outpatient setting 2021 positive for MRSA as per discussion with nephrology in this patient who did have a complicated course with infected right upper extremity graft which was subsequently discontinued and the patient received almost 6 weeks of IV daptomycin from the negative blood culture and also have extensive workup on his last admission including a ISIDORO that was negative for any vegetation and WBC scan was negative, no possible source for bacteremia could be related to the tunneled dialysis catheter has no other obvious focus of infection 2-vascular surgery seen the patient catheter has been discontinued 3- patient did have r CT of the right upper extremity with contrast which was r eviewed with radiologist there is a clip at the right upper end question of any focus of infection 4-patient culture has been repeated document clearance will also obtain an WBC scan continue with the vancomycin have multiple question concern answered01/01/2025 01/02/2025 Patient is seen and evaluated in room at bedside; discussed with nursing staff and no specific complaints reported Vital signs are stable temperature 98.4, pulse 70, respirations 17, blood pressure 163/86 Lab review shows WBC 6.0, hemoglobin 7.7 and platelet count of 162, sodium 135, potassium 4.7, BUN 53 with creatinine of 9.3 patient being admitted to the hospital after he was noted to have a positive blood culture in outpatient setting 2021 positive for MRSA as per discussion with nephrology in this patient who did have a complicated course with infected right upper extremity graft which was subsequently discontinued and the patient received almost 6 weeks of IV daptomycin from the negative blood culture and also have extensive workup on his last admission including a ISIDORO that was negative for any vegetation and WBC scan was negative, no possible source for bacteremia could be related to the tunneled dialysis catheter has no other obvious focus of infection -vascular surgery seen the patient catheter has been discontinued -patient did have CT of the right upper extremity with contrast which was reviewed with radiologist there is a clip at the right upper end question of any focus of infection -patient culture has been repeated 12/31/2024 and so far negative with the remains to be negative at 72-hour he is going to get a new permacatheter currently waiting for WBC scan continue with the vancomycin 01/03 This is a pleasant 44 years old -Cypriot male with a known case of hemodialysis and presents with bacteremia secondary to MRSA with history of ischemic cardiomyopathy. [place] source is infected dialysis catheter which was removed Patient lying in bed states he feels better, however he is lethargic, slow to answer, does not look confused Denies any other specific complaints His right upper extremity is with minimal cellulitis, puncture wound from his right upper chest hemodialysis catheter which was removed. Looks okay with no surrounding cellulitis, no purulent discharge. Dressing is in place. Patient currently kept on IV vancomycin 01/04. Patient seen and examined. WBC scan done was normal. Denies any shortness of breath. Denies any chest pain. Vital signs stable. 01/05. Patient seen and examined. Blood work done this morning showed sodium 134, potassium 5.8, chloride 99, carbon is a 21, BUN 84, creatinine 11.80. Discussed with vascular surgery and ID, both recommended this time patient needs to be transferred to a tertiary level center. [facility] contacted, they will review the case and let us know if they will accept 01/06. Patient seen examined. Patient had a temporary catheter placed yesterday, currently undergoing dialysis. Patient has been afebrile. Blood cultures on 01/03 is negative so . Patient seen and examined. Patient received bed offer from [facility] regarding transfer, more than 1 hour was spent in coordinating care for transfer to [facility] but patient and his at this time declined transfer, they are aware that both ID and vascular surgery at this time are recommending transfer 01/08 Patient generally weak No new complaints He is sugars controlled His antibiotics were updated recently to oral rifampin and IV daptomycin pending the results of repeat blood culture from 01/03 01/09 Patient with no new complaint Blood culture from 01/03 finalized today showing no growth in 5 days Patient pablo on IV daptomycin Infectious disease remains on the case for further recommendation We will continue monitoring 01/10 Patient overall feels fine He denies any new complaint no chest pain no dyspnea no GI/ symptom I told him with the recommendation of infectious disease team to undergo ISIDORO, patient told me he does not want this procedure, he understands he had it before and he understands and told me it is to find a focus of infection and his heart and he confirmed to me he does not want this procedure. Patient is s/p tunneled hemodialysis catheter placement in the left internal jugular vein today. After that patient will be discharged on prolonged course of IV antibiotics daptomycin with hemodialysis as well as oral rifampin. Possible discharge today or tomorrow pending procedure hemodialysis catheter placement 01/11 Patient had tunneled permacath placed in the left upper chest yesterday. This morning patient was evaluated by vascular surgery team In the afternoon was noticed some oozing from the hemodialysis catheter, I discussed the case with vascular surgery team, they are going to monitor him for another 24 hours Check hemoglobin tomorrow. Today hemoglobin was 7.2 Patient will be discharged on IV daptomycin antibiotic as per ID team who took care of the discharge prescription. Today again I asked the patient about he feels about repeating ISIDORO, he confirms to me he does not want to do with. I explained to him the risk and benefits once again he still declining. Possible discharge 24 to 48 hours if he is stable and improving Objective - Vital Signs Vital signs: Vital Signs Temp 98.4 F 01/11/25 13:45 Pulse 71 01/11/25 13:45 Resp 17 01/11/25 13:45 BP 172/89 01/11/25 13:45 Pulse Ox 99 01/11/25 13:45 FiO2 Intake & Output 01/10/25 01/11/25 01/11/25 18:59 06:59 18:59 Intake Total 25 610 200 Output Total 4550 Balance 25 -3940 200 Intake: IV 25 Blood Product 110 200 Rc As-1 Unit 110 200 [id number] Hemodialysis 500 Output: Emesis 50 Hemodialysis 2500 Hemodialysis Net Amount 1999 Other: Voiding Method Toilet Toilet Toilet Urinal Urinal Urinal # Voids 3 1 - Exam -GENERAL: The patient is alert and oriented x3, not in any acute distress. Well developed, well nourished. Lethargic HEENT: Pupils are round and equally reacting to light. EOMI. No scleral icterus. No conjunctival pallor. Normocephalic, atraumatic. No pharyngeal erythema. No thyromegaly. CARDIOVASCULAR: S1 and S2 present. No murmurs, rubs, or gallops. -PULMONARY: Chest is clear to auscultation, no wheezing , no crackles. Right upper chest wall puncture wound with no surrounding cellulitis ABDOMEN: Soft, nontender, nondistended, normoactive bowel sounds. No palpable organomegaly. MUSCULOSKELETAL: No joint swelling or deformity. EXTREMITIES: No cyanosis, clubbing, or pedal edema. NEUROLOGICAL: Gross neurological examination did not reveal any focal deficits. SKIN: No rashes. no petechiae. - Labs CBC & Chem 7: 01/10/25 22:30 01/08/25 05:13 Labs: Abnormal Lab Results - Last 24 Hours (Table) 01/10/25 01/10/25 01/11/25 Range/Units 21:11 22:30 00:18 RBC 2.22 L (4.30-5.90) m/uL Hgb 7.2 L (13.0-17.5) gm/dL Hct 22.0 L (39.0-53.0) % RDW 17.2 H (11.5-15.5) % Plt Count 120 L (150-450) k/uL Lymphocytes # 0.6 L (1.0-4.8) k/uL POC Glucose (mg/dL) 161 H (70-110) mg/dL Crossmatch See Detail 01/11/25 01/11/25 Range/Units 06:07 11:50 RBC (4.30-5.90) m/uL Hgb (13.0-17.5) gm/dL Hct (39.0-53.0) % RDW (11.5-15.5) % Plt Count (150-450) k/uL Lymphocytes # (1.0-4.8) k/uL POC Glucose (mg/dL) 146 H 182 H (70-110) mg/dL Crossmatch Assessment and Plan Assessment: MRSA bacteremia concern for infected dialysis catheter which was removed and patient is on vancomycin which will be continued -End-stage renal disease patient received hemodialysis yesterday patient cannot get any dialysis catheter clearance of bacteremia as of now patient does not have any emergent dialysis need although patient is on vancomycin which we will continue -S/p placement of tunneled hemodialysis catheter on 01/10, with small oozing -Hypertension -Anemia of chronic kidney disease -Hyperlipidemia -Coronary artery disease -Gastroesophageal reflux disease Plan: Continue with IV daptomycin and oral rifampin, patient will require a prolonged course of IV antibiotic Follow-up blood culture from 01/03 has been negative final results therefore patient planned for tunneled hemodialysis catheter placement today 01/10. Postplacement of the dialysis catheter there was some oozing, were going to monitor him for another 24 hours. Hold subcutaneous heparin Patient declined ISIDORO recommended by ID team prior to discharge Infectious disease consult in place, with plan to clear him to place another dialysis catheter once culture is finalized Nephrology team on the case Cardiology team consult Further recommendation based on the clinical course DVT prophylaxis: Protonix DVT prophylaxis: Subcutaneous heparin was put on hold because of wheezing hemodialysis catheter Prognosis is guarded Possible discharge tomorrow
[2025-01-11 16:46] LABS: Glucose,Whole Blood 177 mg/dL (70-110)
[2025-01-11 17:25] LABS: Anisocytosis Slight; Basophils % (A) 1 %; Eosinophils % (A) 1 %; HCT 27.3 % (39.0-53.0); HGB 8.6 gm/dL (13.0-17.5); Hypochromasia Slight; Lymphocytes # (A) 0.6 k/uL (1.0-4.8); Lymphocytes % (A) 15 %; MCH 31.3 pg (25.0-35.0); MCHC 31.4 g/dL (31.0-37.0); MCV 99.8 fL (80.0-100.0); Macrocytosis Moderate; Mean Platelet Volume 10.7; Monocytes # (A) 0.3 k/uL (0-1.0); Monocytes % (A) 8 %; Neutrophils # (A) 3.2 k/uL (1.3-7.7); Neutrophils % (A) 74 %; Platelet Count 113 k/uL (150-450); RBC 2.74 m/uL (4.30-5.90); RDW 18.5 % (11.5-15.5); WBC 4.3 k/uL (3.8-10.6)
[2025-01-11 20:37] LABS: Glucose,Whole Blood 176 mg/dL (70-110)
[2025-01-11] MEDS: ACETAMINOPHEN TAB 325 MG TAB PO PRN (21:27)
[2025-01-11] MEDS: DESMOPRESSIN ACETATE 24 MCG in SODIUM CHLORIDE 0.9% 50 ML IVPB ONE (23:58)
[2025-01-12 06:22] LABS: Glucose,Whole Blood 107 mg/dL (70-110)
[2025-01-12 09:13] LABS: HCT 23.7 % (39.6-50.0); HGB 7.5 g/dL (13.0-17.0); MCHC 31.6 g/dL (32.0-37.0); MCV 97.9 FL (80.0-97.0); Mean Platelet Volume 12.9 FL (9.5-12.2); NRBC Per 100 WBC 0 X 10*3/uL (0.00-0.01); Platelet Count 99 X 10*3/uL (140-440); RBC 2.42 X 10*6/uL (4.40-5.60); RDW 19.4 % (11.5-14.5); WBC 4.77 X 10*3/uL (4.50-10.00)
--- NOTE | 2025-01-12 10:34 | IR ---
EXAMINATION TYPE: IR cvc insert central tunneled Intraoperative/procedural fluoroscopic services were provided. CLINICAL INDICATION:Male, 44 years old with history of RENAL FAILURE; , [facility] FINDINGS: Multiple fluoroscopic images for left chest dialysis central venous tunneled catheter insertion. No r adiographic evidence for complication. Total fluoroscopy time is 1.9 min. DAP: 3.89 Gycm2 Please see the operative/procedural note for further details. [facility], , 01/12/2025 10:32 AM
--- NOTE | 2025-01-12 10:35 | P.PN ---
Subjective Patient is seen in follow-up for end-stage renal disease. Permacath placed January 10, 2025. Oozing from the catheter site. Did receive DDAVP last 2 days. Stitch placed this morning by vascular surgery. Scheduled for dialysis today. Vital signs are stable. General: No acute distress. HEENT: Head exam is unremarkable. LUNGS: No audible rhonchi or wheezes. HEART: Rate and Rhythm are regular. ABDOMEN: A nontender. EXTREMITITES: No edema. Objective - Vital Signs Vital signs: Vital Signs Temp 98.2 F 01/12/25 07:19 Pulse 64 01/12/25 07:19 Resp 17 01/12/25 07:19 BP 146/82 01/12/25 07:19 Pulse Ox 100 01/12/25 07:19 FiO2 Intake & Output 01/11/25 01/12/25 01/12/25 18:59 06:59 18:59 Intake Total 700 Output Total 0 Balance 700 0 Intake: Intake, IV Titration 50 Amount DAPTOmycin 800 mg In 50 Sodium Chloride 0.9% 50 ml @ 100 mls/hr IVPB Q48H [facility] Rx#:[id number] Oral 450 Blood Product 200 Rc As-1 Unit 200 [id number] Output: Urine 0 Other: Voiding Method Toilet Toilet Urinal Urinal # Voids 1 - Labs CBC & Chem 7: 01/12/25 05:25 01/08/25 05:13 Labs: Abnormal Lab Results - Last 24 Hours (Table) 01/11/25 01/11/25 01/11/25 Range/Units 11:50 16:41 16:57 RBC 2.74 L (4.30-5.90) m/uL Hgb 8.6 L (13.0-17.5) gm/dL Hct 27.3 L (39.0-53.0) % MCV (80.0-97.0) FL MCHC (32.0-37.0) g/dL RDW 18.5 H (11.5-15.5) % Plt Count 113 L (150-450) k/uL MPV (9.5-12.2) FL Lymphocytes # 0.6 L (1.0-4.8) k/uL POC Glucose (mg/dL) 182 H 177 H (70-110) mg/dL 01/11/25 01/12/25 Range/Units 20:36 05:25 RBC 2.42 L (4.30-5.90) m/uL Hgb 7.5 L (13.0-17.5) gm/dL Hct 23.7 L (39.0-53.0) % MCV 97.9 H (80.0-97.0) FL MCHC 31.6 L (32.0-37.0) g/dL RDW 19.4 H (11.5-15.5) % Plt Count 99 L (150-450) k/uL MPV 12.9 H (9.5-12.2) FL Lymphocytes # (1.0-4.8) k/uL POC Glucose (mg/dL) 176 H (70-110) mg/dL Assessment and Plan Plan: Assessment: 1. End-stage renal disease maintained on hemodialysis on Friday schedule via permacath. 2. MRSA bacteremia. AV graft excised earlier this year due to bacteremia. Now concerning that permacath may be the source for infection. Blood cultures positive this admission as well. No abscess noted on CT of the upper extremity. WBC scan negative. 3. Anemia of chronic kidney disease. On Aranesp. Oozing from the catheter site improved. Status post IV DDAVP x 2 doses. Stitch placed this morning by vascular surgery. 4. Hypertension with chronic kidney disease. Stable. Plan: Hemodialysis today. Antibiotics per ID to be continued outpatient.
[2025-01-12 12:56] LABS: Glucose,Whole Blood 97 mg/dL (70-110)
[2025-01-12 16:35] LABS: Glucose,Whole Blood 90 mg/dL (70-110)
--- NOTE | 2025-01-12 17:29 | P.PN ---
Subjective Progress Note Date: 01/12/25 Principal diagnosis: Reason for follow-up is MRSA bacteremia Patient is a 44-year-old -Guinean male with a past medical history significant for end-stage renal disease on dialysis he recently did have a prolonged hospital stay with MRSA bacteremia related to the right upper extremity infected graft which was subsequently discontinued and complete 6-week course of IV antibiotics presented back to the hospital with bacteremia concern for possible catheter related which has been discontinued. On today's evaluation that is 01/12/2025,the patient denies any fever or any chills, patient is breathing comfortably on room air, the patient denies chest pain shortness of breath and no significant cough, patient denies abdominal pain, no nausea vomiting or diarrhea. White count is 4.77 blood culture repeat has been negative Objective - Vital Signs Vital signs: Vital Signs Temp 98.2 F 01/12/25 07:19 Pulse 64 01/12/25 07:19 Resp 17 01/12/25 07:19 BP 146/82 01/12/25 07:19 Pulse Ox 100 01/12/25 07:19 FiO2 Intake & Output 01/11/25 01/12/25 01/12/25 18:59 06:59 18:59 Intake Total 700 Output Total 0 Balance 700 0 Intake: Intake, IV Titration 50 Amount DAPTOmycin 800 mg In 50 Sodium Chloride 0.9% 50 ml @ 100 mls/hr IVPB Q48H [facility] Rx#:[id number] Oral 450 Blood Product 200 Rc As-1 Unit 200 [id number] Output: Urine 0 Other: Voiding Method Toilet Toilet Toilet Urinal Urinal Urinal # Voids 1 - Exam GENERAL DESCRIPTION: Middle-age male lying in bed in no distress RESPIRATORY SYSTEM: Unlabored breathing , decreased breath sounds at bases HEART: S1 S2 regular rate and rhythm , ABDOMEN: Soft , no tenderness EXTREMITIES: No edema feet - Labs CBC & Chem 7: 01/12/25 05:25 01/08/25 05:13 Labs: Abnormal Lab Results - Last 24 Hours (Table) 01/11/25 01/11/25 01/11/25 Range/Units 16:41 16:57 20:36 RBC 2.74 L (4.30-5.90) m/uL Hgb 8.6 L (13.0-17.5) gm/dL Hct 27.3 L (39.0-53.0) % MCV (80.0-97.0) FL MCHC (32.0-37.0) g/dL RDW 18.5 H (11.5-15.5) % Plt Count 113 L (150-450) k/uL MPV (9.5-12.2) FL Lymphocytes # 0.6 L (1.0-4.8) k/uL POC Glucose (mg/dL) 177 H 176 H (70-110) mg/dL 01/12/25 Range/Units 05:25 RBC 2.42 L (4.30-5.90) m/uL Hgb 7.5 L (13.0-17.5) gm/dL Hct 23.7 L (39.0-53.0) % MCV 97.9 H (80.0-97.0) FL MCHC 31.6 L (32.0-37.0) g/dL RDW 19.4 H (11.5-15.5) % Plt Count 99 L (150-450) k/uL MPV 12.9 H (9.5-12.2) FL Lymphocytes # (1.0-4.8) k/uL POC Glucose (mg/dL) (70-110) mg/dL Assessment and Plan (1) Bacteremia due to methicillin resistant Staphylococcus aureus Current Visit: Yes Status: Acute Code(s): R78.81 - BACTEREMIA; B95.62 - METHICILLIN RESIS STAPH INFCT CAUSING DISEASES CLASSD [facility] SNOMED Code(s): 96220977895548992 Plan: 1patient with MRSA bacteremia source questionably permacatheter has been discontinued however the patient CT of the right upper extremity with contrast which was reviewed with radiologist there is a clip at the right upper end question of any focus of infection and this has been discussed with the vascular surgery and explained to the patient and the in layman term arrangements were made for the patient to be transferred to [facility] however both the patient and the refused that transfer 2-patient blood cultures from 01/03/2025 has been negative so far if there remains to be negative by tomorrow, patient will be able to get a permacatheter on Friday 3patient has refused ISIDORO and no other risk of refusing, at the bedside and he has expressed the same wishes to the medical physician Sheet 4-patient is status post permacatheter placement 01/10/2025 complaining of some bleeding vascular surgery on the case 5patient currently waiting for dialysis before discharge plan is for total of 6-week course of therapy with daptomycin no need for rifampin which will be dis cussed because of resistant/immediate sensitivity Dictation was produced using [employer] dictation software. please excuse any grammatical, word or spelling errors. Time with Patient: Less than 30
[2025-01-12 18:32] VITALS: BP 174/101; PULSE 76; RESP 16; TEMP 98.7
--- NOTE | 2025-01-12 19:45 | P.DS ---
Providers Date of admission: 12/29/24 13:26 Attending physician: Ki Christianson MD Consults: 12/29/24 13:20 Consult Physician Urgent Consulting Provider: [facility] Consult Reason/Comments: CAD Do you want consulting provider notified?: Yes Consult Physician Urgent Consulting Provider: Jonn Marcum Consult Reason/Comments: Dialysis Do you want consulting provider notified?: Yes Consult Physician Urgent Consulting Provider: Rigo Guillen Consult Reason/Comments: Bacteremia Do you want consulting provider notified?: Yes 12/29/24 13:25 Consult Physician Routine Consulting Provider: Shelly Chua Consult Reason/Comments: Dialysis catheter Do you want consulting provider notified?: Yes Primary care physician: [facility] Course: Diagnoses: -MRSA bacteremia concern for infected dialysis catheter which was removed and patient is on vancomycin which will be continued -End-stage renal disease patient received hemodialysis yesterday patient cannot get any dialysis catheter clearance of bacteremia as of now patient does not have any emergent dialysis need although patient is on vancomycin which we will continue -S/p placement of tunneled hemodialysis catheter on 01/10, with small oozing -Hypertension -Anemia of chronic kidney disease -Hyperlipidemia -Coronary artery disease -Gastroesophageal reflux disease Hospital course: 44-year-old -[place] male came in because of MRSA bacteremia. Patient had a right upper extremity infected graft which was subsequently discontinued during his previous hospitalization because of persistent MRSA bacteremia. Patient had a ISIDORO at that time and other extensive workup including CT angio all of which are negative for endocarditis and lung abscess. Patient completed 6 weeks of antibiotic therapy after his first negative culture that was on 11/13/2024. Patient was admitted for cellulitis at the time cultures were obtained and they came back positive for MRSA patient denies any fever chills does not have any elevated white count. Patient is admitted for possible bacteremia with MRSA and concern for dialysis catheter infection which was subsequently removed on admission repeat cultures were still coming back positive for MRSA bacteremia to the regiment was changed to oral rifampin and IV daptomycin and the culture from 01/03 was negative for bacteremia or MRSA infection. After ID team clearance vascular surgery evaluated the patient and they placed a tunneled catheter for his hemodialysis in the left upper chest 2 days ago on 01/10. Yesterday patient was complaining from oozing from his catheter. I discussed the case with vascular surgery team who evaluated him today and placed another suture in the catheter area and the bleeding stopped. Patient then had another hemodialysis catheter and he was cleared for discharge home today. Patient currently awake and alert, with no other symptom no chest pain or dyspnea, no fever, no chills. No specific GI symptoms. Infectious disease yesterday recommended to repeat ISIDORO prior to discharge. I talked to the patient myself twice over 2 days and he was adamant not to do the ISIDORO procedure again. Patient was well aware of the procedure as he had it before and he knew the indication and risk benefits explained for him in details and he verbalized understanding and acceptance. Patient will be discharged on IV daptomycin for several weeks per ID team recommendation. He will get up his IV daptomycin with hemodialysis. fishing manager was on the case and set up his discharge antibiotic and I discussed the case with her today. Patient is eager to go home today. Patient was cleared for discharge by all consultants including nephrology, infectious disease team, vascular surgery team. Problems and management plan were discussed with the patient and he verbalized understanding and acceptance Patient was found stable and can be discharged home in guarded prognosis however he needs follow-up as an outpatient. Patient was instructed to follow up with PCP within one week and patient agrees Physical exam Gen: patient is a AAOx3, no distress CVS: S1-S2, RRR, no murmur -Lungs: B/L CTA, no wheezing. Left upper chest tunneled hemodialysis catheter in place with no evidence of bleeding or discharge Abdomen: soft, no distention, no tenderness, positive bowel sounds Extremity: no leg edema or induration Time spent more than 35 minutes Plan - Discharge Summary Discharge Rx Participant: No New Discharge Prescriptions: New DAPTOmycin [Cubicin] 800 mg IVPB Q48H each hydrALAZINE HCL [Apresoline] 100 mg PO TID 30 Days #90 tab Continue Nitroglycerin Sl Tabs [Nitrostat] 0.4 mg SL Q5M PRN PRN Reason: Chest Pain cloNIDine 0.3 MG/24HR PATCH [Catapres-TTS] 1 patch TRANSDERM REDD carvediloL [Coreg] 50 mg PO BID-W/MEALS Torsemide [Demadex] 40 mg PO DAILY #30 tab Calcium Carbonate [Tums] 1,000 mg PO Q4HR PRN tab PRN Reason: Dyspepsia Isosorbide Dinitrate [Isordil] 10 mg PO TID Pantoprazole [Protonix] 40 mg PO DAILY PRN PRN Reason: Heartburn Sennosides [Senokot] 8.6 mg PO BID PRN PRN Reason: Constipation Folic Acid 1 mg PO DAILY #30 tab Cyanocobalamin [Vitamin B-12] 1,000 mcg PO DAILY #5 tab amLODIPine [Norvasc] 10 mg PO HS Insulin Glargine (Lantus) [Lantus Vial] 10 units Aspirin 81 mg PO DAILY #30 tab Mag Hydrox/Al Hydrox/Simeth [Maalox] 15 ml PO Q6HR PRN ml PRN Reason: Indigestion Midodrine [ProAmatine] 5 mg PO DAILY PRN #30 tab PRN Reason: Blood Pressure - Low: SBP<100 Cyclobenzaprine [Flexeril] 5 mg PO TID PRN PRN Reason: Muscle Spasm Methoxy Peg-Epoetin Beta [Mircera] 100 mcg IV Q14D Discontinued hydrALAZINE HCL [Apresoline] 50 mg PO TID Discharge Medication List Nitroglycerin Sl Tabs [Nitrostat] 0.4 mg SL Q5M PRN 05/09/20 [History] Aspirin 81 mg PO DAILY #30 tab 06/17/24 [Rx] carvediloL [Coreg] 50 mg PO BID-W/MEALS 08/28/24 [History] cloNIDine 0.3 MG/24HR PATCH [Catapres-TTS] 1 patch TRANSDERM REDD 08/28/24 [History] Calcium Carbonate [Tums] 1,000 mg PO Q4HR PRN tab 11/24/24 [Rx] Mag Hydrox/Al Hydrox/Simeth [Maalox] 15 ml PO Q6HR PRN ml 11/24/24 [Rx] Midodrine [ProAmatine] 5 mg PO DAILY PRN #30 tab 11/24/24 [Rx] Torsemide [Demadex] 40 mg PO DAILY #30 tab 11/24/24 [Rx] Cyclobenzaprine [Flexeril] 5 mg PO TID PRN 12/16/24 [History] Isosorbide Dinitrate [Isordil] 10 mg PO TID 12/16/24 [History] Pantoprazole [Protonix] 40 mg PO DAILY PRN 12/16/24 [History] Sennosides [Senokot] 8.6 mg PO BID PRN 12/16/24 [History] Methoxy Peg-Epoetin Beta [Mircera] 100 mcg IV Q14D 12/17/24 [History] Cyanocobalamin [Vitamin B-12] 1,000 mcg PO DAILY #5 tab 12/21/24 [Rx] Folic Acid 1 mg PO DAILY #30 tab 12/21/24 [Rx] amLODIPine [Norvasc] 10 mg PO HS 12/28/24 [History] Insulin Glargine (Lantus) [Lantus Vial] 10 units 01/01/25 [History] DAPTOmycin [Cubicin] 800 mg IVPB Q48H each 01/06/25 [Rx] hydrALAZINE HCL [Apresoline] 100 mg PO TID 30 Days #90 tab 01/12/25 [Rx] Follow up Appointment(s)/Referral(s): Justen Martines MD [STAFF PHYSICIAN] - 01/21/25 3:45 pm (at [facility] location) Jj Galindo MD [Primary Care Provider] - 1-2 days (office closed at time of discharge. please call to schedule appointment ) Jonn Marcum DO [STAFF PHYSICIAN] - 1 Week Rigo Guillen MD [STAFF PHYSICIAN] - 01/24/25 3:00 pm Patient Instructions/Handouts: Bacteremia (DC) Activity/Diet/Wound Care/Special Instructions: Renal diet activity is restricted till you see your doctor Discharge Disposition: OTHER INSTITUTION NOT DEFINED
== END 2025-01-12 20:08 | disposition home health service (06) | DRG 314 ==
LOC: EC 11:13 → 3SCARD 13:26 → 4SSUR 12-31 18:04
PROVIDERS: ADMIT Internal Medicine; ATTEND Internal Medicine
PROC: 5A1D70Z Performance of Urinary Filtration, Intermittent, Less than 6 Hours Per Day (ICD-10-PCS; 2024-12-30)
PROC: 02HV33Z Insertion of Infusion Device into Superior Vena Cava, Percutaneous Approach (ICD-10-PCS; principal; 2025-01-05)
PROC: B54BZZA Ultrasonography of Right Lower Extremity Veins, Guidance (ICD-10-PCS; 2025-01-10 07:30)
PROC: 0JH63XZ Insertion of Tunneled Vascular Access Device into Chest Subcutaneous Tissue and Fascia, Percutaneous Approach (ICD-10-PCS; 2025-01-10 07:30)
PROC: 30233N1 Transfusion of Nonautologous Red Blood Cells into Peripheral Vein, Percutaneous Approach (ICD-10-PCS; 2025-01-11)
PROC: 0JQ Subcutaneous Tissue and Fascia, Repair (ICD-10-PCS; 2025-01-12)
DX: T80.211A Bloodstream infection due to central venous catheter, initial encounter (principal); N18.6 End stage renal disease; I13.2 Hypertensive heart and chronic kidney disease with heart failure and with stage 5 chronic kidney disease, or end stage renal disease; I27.22 Pulmonary hypertension due to left heart disease; R78.81 Bacteremia; I42.0 Dilated cardiomyopathy; D63.1 Anemia in chronic kidney disease; E11.22 Type 2 diabetes mellitus with diabetic chronic kidney disease; I08.1 Rheumatic disorders of both mitral and tricuspid valves; I50.22 Chronic systolic (congestive) heart failure; T82.855A Stenosis of coronary artery stent, initial encounter; L03.90 Cellulitis, unspecified; T82.838A Hemorrhage due to vascular prosthetic devices, implants and grafts, initial encounter; E11.319 Type 2 diabetes mellitus with unspecified diabetic retinopathy without macular edema; E11.649 Type 2 diabetes mellitus with hypoglycemia without coma; Z99.2 Dependence on renal dialysis; Z86.74 Personal history of sudden cardiac arrest; I25.5 Ischemic cardiomyopathy; B95.62 Methicillin resistant Staphylococcus aureus infection as the cause of diseases classified elsewhere; Y84.8 Other medical procedures as the cause of abnormal reaction of the patient, or of later complication, without mention of misadventure at the time of the procedure; I37.1 Nonrheumatic pulmonary valve insufficiency; K21.9 Gastro-esophageal reflux disease without esophagitis; H54.62 Unqualified visual loss, left eye, normal vision right eye; E78.5 Hyperlipidemia, unspecified; I25.10 Atherosclerotic heart disease of native coronary artery without angina pectoris; I25.2 Old myocardial infarction; Z79.82 Long term (current) use of aspirin; Z79.899 Other long term (current) drug therapy
CPT/HCPCS: 36415; 36558; 76937; 77001; 78306; 80048; 80053; 80202; 83036; 83605; 83735; 85025; 85027; 86706; 86850; 86880; 86900; 86901; 86920; 87040; 87077; 87186; 87340; 90935; 93005; 96365; 96366; 96372; 99285

== ENCOUNTER 2025-02-23 06:18 | Emergency (ER) | payer MEDICARE ==
[2025-02-23 06:27] VITALS: RESP 16
--- NOTE | 2025-02-23 06:40 | ED ---
Extremity Problem HPI - General Chief complaint: Extremity Problem,Nontraumatic Stated complaint: nerve pain Time Seen by Provider: 02/23/25 06:40 Source: patient, family, RN notes reviewed, old records reviewed Mode of arrival: EMS Limitations: no limitations - History of Present Illness Initial comments: 44-year-old male presented the ER via EMS for evaluation of left leg pain. Patient reports a history of sciatic nerve pain patient is being followed up outpatient by PCP for this. Patient has outpatient imaging prescription pending for further evaluation. Patient states pain is chronic for sciatic pain. No new injuries or traumas. Patient describes it as a shooting left lower extremity pain radiating down to knee and occasionally ankle. reports this affected patient's ability to ambulate this morning which prompted emergency department visit. Patient has taken prescribed gabapentin and Tylenol without relief of symptoms. Patient is on dialysis and is scheduled for appointment today. Patient denies any saddle paresthesias, bowel or bladder incontinence/retention, fevers or history of IV drug abuse. No other complaints - Related Data Home Medications Medication Instructions Recorded Confirmed carvediloL [Coreg] 50 mg PO BID-W/MEALS 08/28/24 02/28/25 Cyclobenzaprine [Flexeril] 5 mg PO TID PRN 12/16/24 02/28/25 Isosorbide Dinitrate [Isordil] 10 mg PO TID 12/16/24 02/28/25 Dicyclomine [Bentyl] 20 mg PO QID 02/28/25 02/28/25 Gabapentin [Gabarone] 100 mg PO Q2D 02/28/25 02/28/25 NIFEdipine XL [Procardia Xl] 90 mg PO DAILY 02/28/25 02/28/25 Pantoprazole Sodium [Protonix] 20 mg PO DAILY 02/28/25 02/28/25 hydrALAZINE HCL [Apresoline] 50 mg PO QID PRN 02/28/25 02/28/25 Allergies Allergy/AdvReac Type Severity Reaction Status Date / Time nickel Allergy Rash/Hives Verified 02/28/25 11:04 Review of Systems ROS Statement: Those systems with pertinent positive or pertinent negative responses have been documented in the HPI. ROS Other: All systems not noted in ROS Statement are negative. Past Medical History Past Medical History: Coronary Artery Disease (CAD), Heart Failure, Dialysis, Eye Disorder, GERD/Reflux, Hyperlipidemia, Hypertension, Myocardial Infarction (TN), Renal Disease, Respiratory Disorder Additional Past Medical History / Comment(s): chronic kidney injury/acute a nemia/advanced CAD/valvular disease/severe pulmonary htn/abnormal liver test/hyperlipidemia. Other hx: IDDM type II, pt states informed he had kidney disease in Feb, 2020 then ESRD diagnosed 05/09/20 with hemodialysis M/W/F,neuropathy bilateral feet, L foot ulcer with debridements, L eye blindness d/t diabetic retinopathy, ischemic cardiomyopathy, anasarca/lower leg edema. Last Myocardial Infarction Date:: 03/30/2018 History of Any Multi-Drug Resistant Organisms: MRSA, Other MDRO Date of last positivie culture/infection: 12/29/24-MRSA, VISA MDRO Source:: blood Past Surgical History: Heart Catheterization With Stent Additional Past Surgical History / Comment(s): 05/17/20 R subclavian hemodialysis catheter, debridements L foot wound, R eye surgery-pt believes to remove cataract, SEAN fistula Past Anesthesia/Blood Transfusion Reactions: No Reported Reaction Additional Past Anesthesia/Blood Transfusion Reaction / Comment(s): During 3rd debridement L foot ulcer Date of Last Stent Placement:: 03/31/2018 Past Psychological History: No Psychological Hx Reported Smoking Status: Never smoker Past Alcohol Use History: None Reported Past Drug Use History: None Reported - Past Family History Mother Family Medical History: Diabetes Mellitus, Hyperlipidemia, Hypertension Father Family Medical History: Diabetes Mellitus, Hypertension General Exam Limitations: no limitations General appearance: alert, in no apparent distress Respiratory exam: Present: normal lung sounds bilaterally. Absent: respiratory distress, wheezes, rales, rhonchi, stridor Cardiovascular Exam: Present: regular rate, normal rhythm, normal heart sounds. Absent: systolic murmur, diastolic murmur, rubs, gallop, clicks Extremities exam: Present: normal inspection, full ROM, normal capillary refill. Absent: tenderness, pedal edema, joint swelling, calf tenderness Back exam: Present: normal inspection, full ROM Neurological exam: Present: alert, oriented X3, CN II-XII intact Skin exam: Present: warm, dry, intact, normal color. Absent: rash Course Vital Signs 02/23/25 02/23/25 02/23/25 06:23 07:30 08:00 Temperature 98.2 F Pulse Rate 64 63 61 Respiratory 16 16 16 Rate Blood Pressure 150/95 145/91 124/74 O2 Sat by Pulse 95 99 98 Oximetry 02/23/25 08:32 Temperature 98.0 F Pulse Rate 62 Respiratory 16 Rate Blood Pressure 121/76 O2 Sat by Pulse 98 Oximetry Medical Decision Making - Medical Decision Making Was pt. sent in by a medical professional or institution (, PA, MUD ANALYSIS OPERATOR, urgent care, hospital, or prison...) When possible be specific @ -No Did you speak to anyone other than the patient for history (EMS, parent, family, police, friend...)? What history was obtained from this source @ -, bedside, aiding in HPI past medical history. Did you review nursing and triage notes (agree or disagree)? Why? @ -I reviewed and agree with nursing and triage notes Were old charts reviewed (outside hosp., previous admission, EMS record, old EKG, old radiological studies, urgent care reports/EKG's, prison records)? Report findings @ -No old charts were reviewed Differential Diagnosis (chest pain, altered mental status, abdominal pain women, abdominal pain men, vaginal bleeding, weakness, fever, dyspnea, syncope, headache, dizziness, GI bleed, back pain, seizure, CVA, palpatations, mental health, musculoskeletal)? @ -Differential Musculoskeletal: Muscular strain, contusion, ligament sprain, fracture, arthritis, septic arthritis, bursitis, cellulitis, muscle spasm, nerve compression, DVT, arterial occlusion, herpes zoster, electrolyte abnormality, tumor.... This is not meant to be in all inclusive list EKG interpreted by me (3pts min.). @ -None done X-rays interpreted by me (1pt min.). @ -None done CT interpreted by me (1pt min.). @ -None done U/S interpreted by me (1pt. min.). @ -None done What testing was considered but not performed or refused? (CT, X-rays, U/S, labs)? Why? @ -Imaging considered but not performed as patient reports pain is chronic for sciatic pain. Denies any new injuries or traumas. , bedside, report patient has prescription for outpatient imaging through PCP. What meds were considered but not given or refused? Why? @ -None Did you discuss the management of the patient with other professionals (professionals i.e. , PA, MUD ANALYSIS OPERATOR, lab, RT, psych nurse, social media sr strategy manager, assembly operator, teacher, licensed loan officer, outpatient case manager)? Give summary @ -No Was smoking cessation discussed for >3mins.? @ -No Was critical care preformed (if so, how long)? @ -No Were there social determinants of health that impacted care today? How? (Homelessness, low income, unemployed, alcoholism, drug addiction, transportation, low edu. Level, literacy, decrease access to med. care, nursing home, rehab)? @ -No Was there de-escalation of care discussed even if they declined (Discuss DNR or withdrawal of care, Hospice)? DNR status @ -No What co-morbidities impacted this encounter? (DM, HTN, Smoking, COPD, CAD, Cancer, CVA, ARF, Chemo, Hep., AIDS, mental health diagnosis, sleep apnea, morbid obesity)? @ -ESRD on dialysis Was patient admitted / discharged? Hospital course, mention meds given and route, prescriptions, significant lab abnormalities, going to OR and other pertinent info. @ -Discharge. 44-year-old male presented the ER for evaluation of left leg pain. Patient reports that his pain is chronic of sciatica. Vital signs stable. Patient denying other complaints. Patient is neurovascularly intact with no red flag back pain symptoms negative cauda equina syndrome. As patient reports pain is chronic for sciatic pain, imaging will be deferred at this time, family is agreeable. Patient received symptomatic control with IV Dilaudid and Norflex., with improvement. Upon reevaluation, patient sleeping in exam room no signs of acute distress. I advised close follow-up with PCP and to follow-up with dialysis for treatment as patient is due for treatment today. During reevaluation, is on phone with dialysis center creating appointment. Return parameters discussed. Patient discharge stable condition. Patient and patient's verbally expressed understanding agree with care plan. Case discussed with ED attending, Dr. Arcos. Undiagnosed new problem with uncertain prognosis? @ -No Drug Therapy requiring intensive monitoring for toxicity (Heparin, Nitro, Insulin, Cardizem)? @ -No Were any procedures done? @ -No Diagnosis/symptom? @ -Leg pain Acute, or Chronic, or Acute on Chronic? @ -Chronic Uncomplicated (without systemic symptoms) or Complicated (systemic symptoms)? @ -Uncomplicated Side effects of treatment? @ -No Exacerbation, Progression, or Severe Exacerbation? @ -No Poses a threat to life or bodily function? How? (Chest pain, [place], [place], pneumonia, PE, COPD, DKA, ARF, appy, cholecystitis, CVA, Diverticulitis, Homicidal, Suicidal, threat to staff... and all critical care pts) @ -No Disposition Clinical Impression: Sciatic leg pain Disposition: HOME SELF-CARE Condition: Stable Instructions (If sedation given, give patient instructions): Sciatica (ED) Additional Instructions: Follow-up with PCP. Return to the ER for any new or worsening symptoms. Attend dialysis upon discharge. Is patient prescribed a controlled substance at d/c from ED?: No Referrals: Jj Galindo MD [Primary Care Provider] - 1-2 days Time of Disposition: 08:03
[2025-02-23] MEDS: ORPHENADRINE 30 MG/ML 2 ML VIAL IVP STA (06:48)
[2025-02-23] MEDS: HYDROmorphone 1 MG/ML 1 ML SYRINGE IVP STA (06:49)
[2025-02-23 08:34] VITALS: BP 121/76; PULSE 62; TEMP 98
== END 2025-02-23 08:48 | disposition home or self-care (01) ==
LOC: EC 06:18
DX: M54.32 Sciatica, left side (principal); E11.22 Type 2 diabetes mellitus with diabetic chronic kidney disease; I13.2 Hypertensive heart and chronic kidney disease with heart failure and with stage 5 chronic kidney disease, or end stage renal disease; N18.6 End stage renal disease; I50.9 Heart failure, unspecified; Z99.2 Dependence on renal dialysis; E11.319 Type 2 diabetes mellitus with unspecified diabetic retinopathy without macular edema; Z79.899 Other long term (current) drug therapy; Z88.8 Allergy status to other drugs, medicaments and biological substances
CPT/HCPCS: 99284; 96374; 96375; J2360; J1171

== ENCOUNTER → 2025-02-23 | Outpatient (CLI) | payer MEDICARE ==
--- NOTE | 2025-02-23 09:47 | XR ---
EXAMINATION TYPE: XR lumbar spine 2 or 3V DATE OF EXAM: 02/23/2025 CLINICAL INDICATION: Male, 44 years old with history of M54.50 low back pain, pain TECHNIQUE: Frontal and lateral images of the lumbar spine are obtained. COMPARISON: None FINDINGS: There are 5 lumbar type vertebral bodies identified hypoplastic right T12 rib. The lumbar spine shows slight scoliotic curvature centered at L1-L2 level. There is mild lumbar lordosis latera l images. There is endplate sclerosis and irregularities with moderate anterior spurring at the L4-L 5 level. Consider chronic discitis/osteomyelitis as possible etiology, correlate clinically. Vertebra l bodies are otherwise maintained. Mild to moderate disc space narrowing at L5-S1 level. Overlying Soft tissues are unremarkable. IMPRESSION: As above. [facility], , 02/23/2025 9:45 AM
== END | disposition home or self-care (01) ==
LOC: RADXRMAIN 08:53
PROVIDERS: ATTEND Internal Medicine Geriatric Medicine
DX: M51.360 Other intervertebral disc degeneration, lumbar region with discogenic back pain only (principal); M41.86 Other forms of scoliosis, lumbar region
CPT/HCPCS: 72100

== ENCOUNTER 2025-03-17 23:00 | Emergency (ER) | payer MEDICARE ==
[~2025-03-17 23:00] MED LIST changes: -ALPRAZolam 0.25 MG TAB PO PRN; -ALPRAZolam 0.5 MG TAB PO PRN; +EPINEPHrine 10 ML SYRINGE (0.1 MG/ML) ONE; -HEPARIN SODIUM,PORCINE (1 ML) 2,500 UNIT in SODIUM CHLORIDE 0.9% 250 ML IRRIGATION PRN; -HEPARIN SODIUM,PORCINE 10,000 UNIT in SODIUM CHLORIDE 0.9% 1,000 ML IRRIGATION PRN; -NITROGLYCERIN SL TABS 0.4 MG TAB SUBLINGUAL PRN; +SODIUM BICARB 8.4% 50 ML SYR (1 MEQ/ML) ONE
[2025-03-17 23:22] VITALS: RESP 18
[2025-03-17] MEDS: NOREPINEPHRINE 8 MG in SODIUM CHLORIDE 0.9% 250 ML IV ONE (23:27)
[2025-03-17 23:30] LABS: Glucose,Whole Blood 118 mg/dL (70-110)
[2025-03-17] MEDS: LACTATED RINGERS 1,000 ML IV SCH (23:30)
--- NOTE | 2025-03-17 23:30 | ED ---
General Adult HPI - General Chief complaint: Cardiac Arrest/CPR Stated complaint: Cardiac arrest Time Seen by Provider: 03/17/25 23:20 Source: EMS Mode of arrival: EMS Limitations: altered mental status - History of Present Illness Initial comments: Patient is a 44-year-old gentleman past medical history of end-stage renal disease on dialysis, history is limited by cardiac arrest, presenting today status post cardiac arrest. Per EMS personnel they were called the patient's home by patient significant other when patient was having difficulty in breat carlo. Reportedly he had been having episode of coffee-ground emesis earlier today. On their arrival patient had become unresponsive and was in PEA. He received CPR according to ACLS protocols, including 7 rounds of epinephrine, 1 amp of bicarb and 1 amp of calcium chloride. ROSC was achieved just prior to arrival however lasting on arrival to the ER. Patient arrives with an Igel in place, CPR ongoing. Of note patient is reported to have missed 2 appointments for dialysis this week. - Related Data Home Medications Medication Instructions Recorded Confirmed carvediloL [Coreg] 50 mg PO BID-W/MEALS 08/28/24 02/28/25 Isosorbide Dinitrate [Isordil] 10 mg PO TID 12/16/24 02/28/25 Dicyclomine [Bentyl] 20 mg PO QID 02/28/25 02/28/25 Gabapentin [Gabarone] 100 mg PO Q2D 02/28/25 02/28/25 NIFEdipine XL [Procardia XL] 90 mg PO DAILY 02/28/25 02/28/25 Pantoprazole Sodium [Protonix] 20 mg PO DAILY 02/28/25 02/28/25 hydrALAZINE HCL [Apresoline] 50 mg PO QID PRN 02/28/25 02/28/25 Previous Rx's Medication Instructions Recorded Acetaminophen Tab [Tylenol] 650 mg PO Q6HR PRN tab 03/11/25 Cholestyramine (with Sugar) 4 gm PO TID-W/MEALS #90 packet 03/11/25 [Questran Packet] Cyclobenzaprine [Flexeril] 10 mg PO TID PRN #30 tab 03/11/25 Lidocaine 4% Patch 2 patch TOPICAL DAILY #60 patch 03/11/25 Allergies Allergy/AdvReac Type Severity Reaction Status Date / Time nickel Allergy Rash/Hives Verified 02/28/25 11:04 Review of Systems ROS Statement: Those systems with pertinent positive or pertinent negative responses have been documented in the HPI. ROS Other: All systems not noted in ROS Statement are negative. Past Medical History Past Medical History: Coronary Artery Disease (CAD), Heart Failure, Dialysis, Eye Disorder, GERD/Reflux, Hyperlipidemia, Hypertension, Myocardial Infarction (KS), Renal Disease, Respiratory Disorder Additional Past Medical History / Comment(s): chronic kidney injury/acute anemia/advanced CAD/valvular disease/severe pulmonary htn/abnormal liver test/hyperlipidemia. Other hx: IDDM type II, pt states informed he had kidney disease in Feb, 2020 then ESRD diagnosed 05/09/20 with hemodialysis M/W /F,neuropathy bilateral feet, L foot ulcer with debridements, L eye blindness d/t diabetic retinopathy, ischemic cardiomyopathy, anasarca/lower leg edema. Last Myocardial Infarction Date:: 03/30/2018 History of Any Multi-Drug Resistant Organisms: MRSA, Other MDRO Date of last positivie culture/infection: 03/02/25-MRSA; 12/29/24-VISA MDRO Source:: MRSA-blood; VISA-blood Past Surgical History: Heart Catheterization With Stent Additional Past Surgical History / Comment(s): 05/17/20 R subclavian hemodialysis catheter, debridements L foot wound, R eye surgery-pt believes to remove cataract, SEAN fistula Past Anesthesia/Blood Transfusion Reactions: No Reported Reaction Additional Past Anesthesia/Blood Transfusion Reaction / Comment(s): During 3rd debridement L foot ulcer Date of Last Stent Placement:: 03/31/2018 Past Psychological History: No Psychological Hx Reported Smoking Status: Never smoker Past Alcohol Use History: None Reported Past Drug Use History: None Reported - Past Family History Mother Family Medical History: Diabetes Mellitus, Hyperlipidemia, Hypertension Father Family Medical History: Diabetes Mellitus, Hypertension General Exam - General Exam Comments Initial Comments: PE: CONSTITUTIONAL: In acute distress, unresponsive, Igel in place, compressions ongoing, dark brown emesis from nares and mouth SKIN: Cool dry ] EYES:pupils are equally round, no spontaneous extraocular movements, no nystagm us, clear conjunctiva, non-icteric sclera HENT: Normocephalic, atraumatic oropharynx with scant amount of muddy brown emesis, Igel in place NECK: , Full range of motion, normal appearance PULMONARY: Decreased breath sounds throughout with assisted respirations CARDIOVASCULAR: No lower extremity edema, pulses are not palpable, CPR ongoing GASTROINTESTINAL: Distended, firm GENITOURINARY: MUSCULOSKELETAL: Extremities have no gross deformity, redness, or swelling. No calf swelling NEUROLOGIC:_a/o x 0, GCS3, unresponsive Limitations: altered mental status Course Vital Signs 03/17/25 03/17/25 03/17/25 23:20 23:21 23:24 Pulse Rate 57 L Respiratory 18 Rate Blood Pressure 74/57 O2 Sat by Pulse 100 Oximetry Fraction of 100 100 Inspired Oxygen (FIO2) 03/17/25 03/17/25 03/17/25 23:28 23:33 23:45 Pulse Rate 48 L 56 L Respiratory Rate Blood Pressure 69/36 120/57 102/70 O2 Sat by Pulse Oximetry Fraction of Inspired Oxygen (FIO2) 03/17/25 03/18/25 23:54 00:01 Pulse Rate 55 L Respiratory Rate Blood Pressure 95/58 O2 Sat by Pulse Oximetry Fraction of 60 Inspired Oxygen (FIO2) EKG Findings - EKG Comments: EKG Findings:: Ectopic atrial rhythm, first-degree AV block, rate 59 bpm NV interval 268 ms QT/QTc 463/460 ms, normal axis, artifact present, T wave inversion lead I, no significant ST elevations or depressions Medical Decision Making - Medical Decision Making Was pt. sent in by a medical professional or institution (JAYNE Metz, ARMATURE REPAIRER, urgent care, hospital, or senior care...) When possible be specific @ -No Did you speak to anyone other than the patient for history (EMS, parent, family, police, friend...)? What history was obtained from this source Spoke with EMS personnel who stated they were called for difficulty in breathing, on arrival patient had collapsed and was in PEA, received 7 doses of epi, sodium bicarb, calcium chloride, ROSC was briefly achieved however pulses lost just about 2 minutes prior to arrival in the ER. Total downtime at least 30 minutes Later did speak with patient's who stated that patient started feeling ill this evening, had few episodes of coffee-ground emesis and requested she call 911, on their arrival patient was found facedown in their bed Did you review nursing and triage notes (agree or disagree)? Why? @ -I reviewed nursing and triage notes Were old charts reviewed (outside hosp., previous admission, EMS record, old E KG, old radiological studies, urgent care reports/EKG's, senior care records)? Report findings @ -Medical records reviewed-patient is extensive past medical history, was just discharged from this hospital, On review of discharge summary from 03/11/2025, it appears patient had been admitted for intractable back pain suspected to be secondary to osteomyelitis/discitis, bacteremia with presumptive MRSA, Klebsiella Differential Diagnosis (chest pain, altered mental status, abdominal pain women, abdominal pain men, vaginal bleeding, weakness, fever, dyspnea, syncope, headache, dizziness, GI bleed, back pain, seizure, CVA, palpatations, mental health, musculoskeletal)? @ -Differential diagnosis remains broad however top considerations include cardiac arrest secondary to hyperkalemia, hypovolemia secondary to hemorrhage from GI bleed, KS, cardiac tamponade, PE, respiratory arrest/hypoxemia, acidosis is not all-inclusive list EKG interpreted by me (3pts min.). @ -As above X-rays interpreted by me (1pt min.). @ -Personally reviewed chest x-ray, cardiomegaly noted without pneumothorax, appears to have diffuse pulmonary infiltrates I suspect secondary to pulmonary contusions from CPR CT interpreted by me (1pt min.). @ -None done U/S interpreted by me (1pt. min.). @ -None done What meds were considered but not given or refused? Why? @ PRBCs were considered however suspicion for electrolyte disorder as cause of arrest was higher so this was treated first, and ultimately PRBCs not ordered due to futility of ongoing resuscitation given prolonged downtime, additional ABG obtained showed hgb of 7.2, which was baseline for the pt Did you discuss the management of the patient with other professionals (professionals i.e. , PA, ARMATURE REPAIRER, lab, RT, psych nurse, social services aide, space studies faculty member, teacher, loan workout officer, onsite case manager)? Give summary @ -No Was smoking cessation discussed for >3mins.? @ -No Was critical care preformed (if so, how long)? @Yes, 45 minutes Were there social determinants of health that impacted care today? How? (Homelessness, low income, unemployed, alcoholism, drug addiction, transportation, low edu. Level, literacy, decrease access to med. care, halfway, rehab)? @ -No Was there de-escalation of care discussed even if they declined (Discuss DNR or withdrawal of care, Hospice)? @Yes, discussed patient's CODE STATUS with patient's , Crystal she stated that pt had said "he never would want to give up" or be a DNR. Ultimately, due to futility of treatment and poor prognosis given multiple arrests with prolonged downtime, withdrawal of care was discussed with pt's to which she was agreeable What co-morbidities impacted this encounter? (DM, HTN, Smoking, COPD, CAD, Cancer, CVA, ARF, Chemo, Hep., AIDS, mental health diagnosis, sleep apnea, morbid obesity)? @ ESRD on dialysis, CAD, CHF Was patient admitted / discharged? Hospital course, mention meds given and route, prescriptions, significant lab abnormalities, going to OR and other pertinent info. @ -- Pt is a 44 y/o gentleman with mutiple medical co-morbidities, including ESRD on dialysis presenting via EMS for cardiac arrest. Pt seen immediately on arrival to the ED, CPR ongoing. Pulse check was performed on arrival without ROSC. ACLS protocol was continued. Pt was intubated. US of the chest did not show cardiac tamponade/pericardial effusion. Pt was given additional amps sodium bicarb, IV fluids. ROSC was achieved and levophed was ordered, however pulses were ultimately lost again briefly after this. CPR was again performed, ALCS protocols followed, ROSC was achieved once more, epi was hung, vasopressin ordered as well, however pulses were then lost a third time. At this point pt had had a total downtime of at least 1 hour, and due to futility of ongoing resuscitation, after next round of CPR, pulses were still not palpable and discussed with pt's , at bedside, withdrawing care. TOD was called at 00:16. Undiagnosed new problem with uncertain prognosis? @ -No Drug Therapy requiring intensive monitoring for toxicity (Heparin, Nitro, Insulin, Cardizem)? @epi, vasopressin, norepinephrine Were any procedures done? @ -No Diagnosis/symptom? @Cardiac arrest Acute, or Chronic, or Acute on Chronic? @ acute Uncomplicated (without systemic symptoms) or Complicated (systemic symptoms)? @ -complicated Side effects of treatment? @ -No Exacerbation, Progression, or Severe Exacerbation? @ -No Poses a threat to life or bodily function? How? (Chest pain, USA, KS, pneumonia, PE, COPD, DKA, ARF, appy, cholecystitis, CVA, Diverticulitis, Homicidal, Suicidal, threat to staff... and all critical care pts) @ yes - Lab Data Result diagrams: 03/17/25 23:25 03/17/25 23:08 Lab Results 03/17/25 03/17/25 03/17/25 Range/Units 23:08 23:08 23:08 WBC (4.50-10.00) 10*3/uL RBC (4.40-5.60) 10*6/uL Hgb (13.0-17.0) g/dL Hct (39.6-50.0) % MCV (80.0-97.0) fL MCH (27.0-32.0) pg MCHC (32.0-37.0) g/dL Plt Count (140-440) 10*3/uL MPV (9.5-12.2) fL Immature Gran % (Auto) % Neutrophils % % Lymphocytes % % Monocytes % % Eosinophils % % Basophils % % Immature Gran # (0.00-0.04) 10*3/uL Neutrophils # (1.80-7.70) 10*3/uL Lymphocytes # (0.90-5.00) 10*3/uL Monocytes # (0.20-1.00) 10*3/uL Eosinophils # (0.04-0.35) 10*3/uL Basophils # (0.00-0.10) 10*3/uL PT 13.7 H (10.0-12.5) sec INR 1.3 H (<1.2) APTT 26.3 (22.0-30.0) sec Sample Site ABG pH (7.35-7.45) ABG pCO2 (35-45) mmHg ABG pO2 (83-108) mmHg ABG HCO3 (21-25) mmol/L ABG Total CO2 (19-24) mmol/L ABG O2 Saturation (94-97) % ABG Base Excess mmol/L Dangelo Test Hemoglobin (13.0-17.5) gm/dL FiO2 % Sodium 141 (137-145) mmol/L Potassium 6.4 H* (3.5-5.1) mmol/L Chloride 101 (98-107) mmol/L Carbon Dioxide 19 L (22-30) mmol/L Anion Gap 21 mmol/L BUN 74 H (9-20) mg/dL Creatinine 10.08 H* (0.66-1.25) mg/dL Est GFR (CKD-EPI)AfAm 7 (>60 ml/min/1.73 sqM) Est GFR (CKD-EPI)NonAf 6 (>60 ml/min/1.73 sqM) Glucose 128 H (74-99) mg/dL POC Glucose (mg/dL) (70-110) mg/dL POC Glu Security Controls Assessor ID Lactic Ac Sepsis Rflx Plasma Lactic Acid Robb (0.7-2.0) mmol/L Calcium 9.4 (8.4-10.2) mg/dL Phosphorus 11.1 H* (2.5-4.5) mg/dL Magnesium 2.6 H (1.6-2.3) mg/dL Total Bilirubin 1.0 (0.2-1.3) mg/dL AST 38 (17-59) U/L ALT 31 (4-49) U/L Alkaline Phosphatase 440 H (38-126) U/L Troponin I 0.070 H* (0.000-0.034) ng/mL Total Protein 6.8 (6.3-8.2) g/dL Albumin 3.0 L (3.5-5.0) g/dL Blood Type Blood Type Recheck Bld Type Recheck Status Antibody Screen Spec Expiration Date 03/17/25 03/17/25 03/17/25 Range/Units 23:08 23:12 23:25 WBC 9.28 (4.50-10.00) 10*3/uL RBC 2.46 L (4.40-5.60) 10*6/uL Hgb 7.6 L (13.0-17.0) g/dL Hct 23.8 L (39.6-50.0) % MCV 96.7 D (80.0-97.0) fL MCH 30.9 (27.0-32.0) pg MCHC 31.9 L (32.0-37.0) g/dL Plt Count 276 (140-440) 10*3/uL MPV 11.0 (9.5-12.2) fL Immature Gran % (Auto) 2.5 % Neutrophils % 65.7 % Lymphocytes % 19.2 % Monocytes % 8.4 % Eosinophils % 3.2 % Basophils % 1.0 % Immature Gran # 0.23 H (0.00-0.04) 10*3/uL Neutrophils # 6.10 (1.80-7.70) 10*3/uL Lymphocytes # 1.78 (0.90-5.00) 10*3/uL Monocytes # 0.78 (0.20-1.00) 10*3/uL Eosinophils # 0.30 (0.04-0.35) 10*3/uL Basophils # 0.09 (0.00-0.10) 10*3/uL PT (10.0-12.5) sec INR (<1.2) APTT (22.0-30.0) sec Sample Site ABG pH (7.35-7.45) ABG pCO2 (35-45) mmHg ABG pO2 (83-108) mmHg ABG HCO3 (21-25) mmol/L ABG Total CO2 (19-24) mmol/L ABG O2 Saturation (94-97) % ABG Base Excess mmol/L Dangelo Test Hemoglobin (13.0-17.5) gm/dL FiO2 % Sodium (137-145) mmol/L Potassium (3.5-5.1) mmol/L Chloride (98-107) mmol/L Carbon Dioxide (22-30) mmol/L Anion Gap mmol/L BUN (9-20) mg/dL Creatinine (0.66-1.25) mg/dL Est GFR (CKD-EPI)AfAm (>60 ml/min/1.73 sqM) Est GFR (CKD-EPI)NonAf (>60 ml/min/1.73 sqM) Glucose (74-99) mg/dL POC Glucose (mg/dL) (70-110) mg/dL POC Glu Security Controls Assessor ID Lactic Ac Sepsis Rflx Plasma Lactic Acid Robb 7.7 H* (0.7-2.0) mmol/L Calcium (8.4-10.2) mg/dL Phosphorus (2.5-4.5) mg/dL Magnesium (1.6-2.3) mg/dL Total Bilirubin (0.2-1.3) mg/dL AST (17-59) U/L ALT (4-49) U/L Alkaline Phosphatase (38-126) U/L Troponin I (0.000-0.034) ng/mL Total Protein (6.3-8.2) g/dL Albumin (3.5-5.0) g/dL Blood Type O Positive Blood Type Recheck O Pos Bld Type Recheck Status No Antibody Screen NEGATIVE Spec Expiration Date 03/20/2025 - 231103/17/25 03/17/25 03/18/25 Range/Units 23:28 23:33 00:35 WBC (4.50-10.00) 10*3/uL RBC (4.40-5.60) 10*6/uL Hgb (13.0-17.0) g/dL Hct (39.6-50.0) % MCV (80.0-97.0) fL MCH (27.0-32.0) pg MCHC (32.0-37.0) g/dL Plt Count (140-440) 10*3/uL MPV (9.5-12.2) fL Immature Gran % (Auto) % Neutrophils % % Lymphocytes % % Monocytes % % Eosinophils % % Basophils % % Immature Gran # (0.00-0.04) 10*3/uL Neutrophils # (1.80-7.70) 10*3/uL Lymphocytes # (0.90-5.00) 10*3/uL Monocytes # (0.20-1.00) 10*3/uL Eosinophils # (0.04-0.35) 10*3/uL Basophils # (0.00-0.10) 10*3/uL PT (10.0-12.5) sec INR (<1.2) APTT (22.0-30.0) sec Sample Site L radial ABG pH 7.18 L* (7.35-7.45) ABG pCO2 46 H (35-45) mmHg ABG pO2 312 H (83-108) mmHg ABG HCO3 17 L (21-25) mmol/L ABG Total CO2 18 L (19-24) mmol/L ABG O2 Saturation 99.8 H (94-97) % ABG Base Excess -10.6 mmol/L Dangelo Test Yes Hemoglobin 7.2 L (13.0-17.5) gm/dL FiO2 100 % Sodium (137-145) mmol/L Potassium (3.5-5.1) mmol/L Chloride (98-107) mmol/L Carbon Dioxide (22-30) mmol/L Anion Gap mmol/L BUN (9-20) mg/dL Creatinine (0.66-1.25) mg/dL Est GFR (CKD-EPI)AfAm (>60 ml/min/1.73 sqM) Est GFR (CKD-EPI)NonAf (>60 ml/min/1.73 sqM) Glucose (74-99) mg/dL POC Glucose (mg/dL) 118 H (70-110) mg/dL POC Glu Security Controls Assessor ID Patel Chaudhry Lactic Ac Sepsis Rflx Y Plasma Lactic Acid Robb (0.7-2.0) mmol/L Calcium (8.4-10.2) mg/dL Phosphorus (2.5-4.5) mg/dL Magnesium (1.6-2.3) mg/dL Total Bilirubin (0.2-1.3) mg/dL AST (17-59) U/L ALT (4-49) U/L Alkaline Phosphatase (38-126) U/L Troponin I (0.000-0.034) ng/mL Total Protein (6.3-8.2) g/dL Albumin (3.5-5.0) g/dL Blood Type Blood Type Recheck Bld Type Recheck Status Antibody Screen Spec Expiration Date Disposition Clinical Impression: Cardiac arrest Disposition: Referrals: Jj Galindo MD [Primary Care Provider] - 1-2 days Preliminary Cause of : Cardiac arrest
[2025-03-17] MEDS: PANTOPRAZOLE 40 MG/10 ML VIAL IVP ONE (23:35)
[2025-03-17 23:36] LABS: ABG Base Excess -10.6 mmol/L; ABG HCO3 17 mmol/L (21-25); ABG Oxygen Saturation 99.8 % (94-97); ABG PCO2 46 mmHg (35-45); ABG PO2 312 mmHg (83-108); ABG TCO2 18 mmol/L (19-24); Allen Test Performed? Yes
[2025-03-17 23:49] LABS: ABG PH 7.18 (7.35-7.45)
[2025-03-17] MEDS: fentaNYL (PF) 50 MCG/ML 2 ML AMP IVP PRN (23:53)
[2025-03-17 23:54] VITALS: BP 95/58; PULSE 55
[2025-03-18 00:04] LABS: Basophils # (A) 0.09 10*3/uL (0.00-0.10); Eosinophils % (A) 3.2 %; HCT 23.8 % (39.6-50.0); HGB 7.6 g/dL (13.0-17.0); Lymphocytes # (A) 1.78 10*3/uL (0.90-5.00); Lymphocytes % (A) 19.2 %; MCH 30.9 pg (27.0-32.0); MCHC 31.9 g/dL (32.0-37.0); Monocytes # (A) 0.78 10*3/uL (0.20-1.00); Monocytes % (A) 8.4 %; Neutrophils % (A) 65.7 %; Platelet Count 276 10*3/uL (140-440); RBC 2.46 10*6/uL (4.40-5.60); RDW 17.2 % (11.5-14.5); WBC 9.28 10*3/uL (4.50-10.00)
[2025-03-18] MEDS: fentaNYL (PF). 1,000 MCG in SODIUM CHLORIDE 0.9% 80 ML IV SCH (00:08)
[2025-03-18 00:10] LABS: ALT 31 U/L (4-49); AST 38 U/L (17-59); African American GFR (CKD) 7 (>60 ml/min/1.73 sqM); Alkaline Phosphatase 440 U/L (38-126); Anion Gap 21 mmol/L; Blood Urea Nitrogen 74 mg/dL (9-20); Calcium 9.4 mg/dL (8.4-10.2); Carbon Dioxide 19 mmol/L (22-30); Chloride 101 mmol/L (98-107); Glucose 128 mg/dL (74-99); Magnesium 2.6 mg/dL (1.6-2.3); Non-African American GFR(CKD) 6 (>60 ml/min/1.73 sqM); Sodium 141 mmol/L (137-145); Total Protein 6.8 g/dL (6.3-8.2)
[2025-03-18 00:32] LABS: INR 1.3 (<1.2); Partial Thromboplastin Time 26.3 sec (22.0-30.0); Prothrombin Time 13.7 sec (10.0-12.5)
[2025-03-18 00:34] LABS: Potassium 6.4 mmol/L (3.5-5.1)
[2025-03-18 00:35] LABS: Phosphorus 11.1 mg/dL (2.5-4.5)
--- NOTE | 2025-03-18 00:57 | XR ---
EXAM: XR Chest, 1 View CLINICAL HISTORY: ITS.REASON XR Reason: cardiac arrest TECHNIQUE: Frontal view of the chest. COMPARISON: No relevant prior studies available. FINDINGS: Lungs: Unremarkable. No consolidation. Pleural space: Unremarkable. No pneumothorax. Heart: Cardiomegaly. Mediastinum: Unremarkable. Normal mediastinal contour. Bones/joints: Unremarkable. No acute fracture. Tubes, lines and devices: Endotracheal tube with its tip above the seth. Right-sided tunnel hemodialysis catheter with its tip at the mid SVC. IMPRESSION: No acute findings in the chest.
--- NOTE | 2025-03-18 00:59 | XR ---
EXAM: XR Chest, 1 View CLINICAL HISTORY: ITS.REASON XR Reason: TUBE PLACEMENT TECHNIQUE: Frontal view of the chest. COMPARISON: 03/10/2025 FINDINGS: Lungs: See below. Pleural space: Unremarkable. No pneumothorax. Heart: Cardiomegaly unchanged from prior exam. Central pulmonary vascular congestion. Mediastinum: Unremarkable. Normal mediastinal contour. Bones/joints: Unremarkable. No acute fracture. Tubes, lines and devices: Endotracheal tube seen with its tip just above the seth. Esophageal catheter is seen with its tip extending below the left hemidiaphragm. Tunneled right-sided hemodialysis catheter. IMPRESSION: As above
[2025-03-18] MEDS: VASOPRESSIN 20 UNIT in SODIUM CHLORIDE 0.9% 50 ML IV SCH (01:30)
[2025-03-18] MEDS: EPINEPHrine 4 MG in DEXTROSE 5% IN WATER 250 ML IV ONE (01:31)
[2025-03-18 01:37] LABS: MCV 96.7 fL (80.0-97.0)
== END 2025-03-18 03:36 | disposition expired ==
LOC: EC 23:00
DX: I46.9 Cardiac arrest, cause unspecified (principal); I13.2 Hypertensive heart and chronic kidney disease with heart failure and with stage 5 chronic kidney disease, or end stage renal disease; I50.9 Heart failure, unspecified; I25.10 Atherosclerotic heart disease of native coronary artery without angina pectoris; N18.6 End stage renal disease; Z88.8 Allergy status to other drugs, medicaments and biological substances
CPT/HCPCS: 36415 ×2; 36600; 94002; 92950; 86900; 86901; 80053; 82805; 83605; 83735; 84100; 84484; 85025; 85610; 85730; 86850; 71045; 99291; 96365; 96375; 31500; 96368; J0171; J3010 ×2; J2704; J2470